=== PATIENT | female | born 1950 | race Caucasian/White ===

== ENCOUNTER 2023-07-21 02:06 | Observation (INO) ==
--- OUTSIDE RECORDS SUMMARY | 2023-07-21 02:16 | External Medical Summary | Summary of Care ---
Author Name Unknown Organization [facility] Address [address] [place] [address] Phone [phone] Care Team Providers Care Welt Maker Name Role Phone Charlene York Primary Care Provider Reason for Visit * Reason Comments Medication Administration Udencya * Episode Based Medications (Routine) - Authorized Specialty Diagnoses / Procedures Referred By Contalex t Referred To Contact Diagnoses Malignant neoplasm of upper-outer quadrant of right breast in female, estrogen receptor positive (HCC) Encounter for antineoplastic chemotherapy Procedures AZ CARBOPLATIN INJECTION AZ FOSAPREPITANT INJECTION AZ INJECTION, PERTUZUMAB, 1 MG AZ INJ ONTRUZANT 10 MG AZ INJECTION, UDENYCA 0.5 MG AZ DOCETAXEL INJECTION Faustino Sharif MD [address] [place] [address] Anc Hem/Onc [address] [address] Referral ID Status Reason Start Date Expiration Date V isits Requested Visits Authorized [id number] Authorized 06/11/2023 02/22/2099 [id number] Encounter Details Date Type Department Care Team (Latest Contact Info) Description 07/14/2023 3:00 PM EDT Immunization/ Injection Hematology/Oncology Treatment, [address] [address] Nurse, Med [address] [place] [address] Malignant neoplasm of upper-outer quadrant of right breast in female, estrogen receptor positive (HCC)*; Encounter for antineoplastic chemotherapy Allergies No known active allergiesdocumented as of this encounter (statuses as of 07/14/2023) Medications Medication Sig Dispensed Refills Start Date End Date Status FOLIC ACID 1 MG OR TABS 1 TABLET DAILY 0 0 04/15/2004 Active MOBIC 7.5 MG PO TABS One pill by mouth once a day for pain as needed 10/05/2007 Active Methotrexate 2.5 MG Oral Tablet Take by mouth once a week. 6 tablets once a week Active Calcium 600-10 MG-MCG Oral Tablet Chewable Take by mouth 2 times a day. Active Orencia 250 MG Intravenous Solution Reconstituted (Abatacept) Administer intravenously. Active dexAMETHasone 4 MG Oral TabletIndications:Mal ignant neoplasm of upper-outer quadrant of right breast in female, estrogen receptor positive (HCC) Take 2 tablets twice a day, starting on the previous day of the treatment for total 3 days and repeat with each chemo cycle 72 Tablet 06/11/2023 Active Ondansetron HCl 8 MG Oral TabletIndications:Mal ignant neoplasm of upper-outer quadrant of right breast in female, estrogen receptor positive (HCC) Take 1 Tablet by mouth every 8 hours as needed for Nausea. 30 Tablet 3 06/11/2023 Active Prochlorperazine Maleate 10 MG Oral Tablet (Compazine)Indication s:Malignant neoplasm of upper-outer quadrant of right breast in female, estrogen receptor positive (HCC) Take 1 Tablet by mouth every 6 hours as needed for Nausea. 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 05/09/2004 documented as of this encounter (statuses as of 07/14/2023) Resolved Problems Problem Noted Date Diagnosed Date Resolved Date Impacted cerumen 03/11/2023 Otitis media 03/11/2023 documented as of this encounter (statuses as of 07/14/2023) Immunizations Name Administration Dates Next Due SARS-COV-2 (COVID-19) Vaccine Unspecified 2022 Seasonal Influenza Virus Vac cine, Unspecified Formulation 12/15/2013,03/23/2013,01/20/2006 Seasonal Influenza, Split, I IV3, With Preserve, Inj 01/20/2006 TDAP (age 10 and older)(Boostrix) 03/11/2023 TDAP (age 11 and older)(Adacel) 06/30/2012 documented as of this encounter Social History Tobacco Use Types Packs/Day Years Used Date Smoking Tobacco: Never Smokeless Tobacco: Never Alcohol Use Standard Drinks/Week Comments No 0 (1 standard drink = 0.6 oz pur e alcohol) Sex and Gender Information Value Date Recorded Sex Assigned at Not on file Gender Identity Not on file Sexual Orientation Not on file Job Start Date Occupation Industry Not on file Not on file Not on file documented as of this encounter Nursing Notes * Bridgette Foreman LPN - 07/14/2023 3:14 PM EDT Pt arrived for Udencya injection. Administered in HUY. Pt tolerated well. No complaints at this time. documented in this encounter Plan of Treatment Upcoming Encounters Date Type Department Care Team (Late st Contact Info) Description 08/03/2023 8:00 AM EDT Office Visit Hematology/Oncology [facility] Aida [address] [place] [address] Tatiana Grullon CRNP [address] [facility] [place] [address] 08/03/2023 8:30 AM EDT Hem/Onc Treatment [facility]cology [facility], [place] [facility] [address] Aida, Chair 4 Hem Onc [address] [place] [address] Health Maintenance Due Date Last Done Comments Pneumococcal Vaccine: 65+ Years (1 of 2 - PCV) 06/16/1956 Depression Screening 1963 Hepatitis C Screening 06/16/1969 Zoster Vaccines (1 of 2) 06/16/1970 Cologuard 06/16/1996 Colonoscopy 06/16/1996 Colorectal Cancer Screening 06/16/1996 Fecal Occult Blood Test 06/16/1996 Sigmoidoscopy 06/16/1996 COVID-19 Vaccine ( - season) 2023 02/03/2023, 06/04/2020, 05/03/2020 Influenza Vaccine (FLU shot) (Season Ended) 2023 12/15/2013, 03/23/2013, 01/20/2006, Additional history exists Mammogram 04/15/2024 04/15/2023 DXA Scan 07/26/2027 07/25/2020 Lipid Panel 03/11/2028 03/11/2023 DTaP,Tdap,and Td Vaccines (3 - Td or Tdap) 03/11/2033 03/11/2023, 06/30/2012 GARDASIL-HPV IMMUNIZATION SERIES Aged Out No longer eligible based on patient's age to complete this topic Hepatitis B Aged Out No longer eligi ble based on patient's age to complete this topic MENINGOCOCCAL (MENACTRA/MENVEO) Aged Out No longer eligible based on patient's age to complete this topic documented as of this encounter Medical Devices Implanted Type Area Rail Project Engineer Device Identifier Shelf Expiration Date Model / Serial / Lot Power Port 8fr Sngl Lumen Plas - [id number] Implanted:Qty : 1 on 07/08/2023 by Naun Ratliff MD at OR [facility] Right: Chest CR BARD : PERIPHERAL VASCULAR [id number] 10/23/2024 [id number] / / [id number] documented as of this encounter Visit Diagnoses Diagnosis Malignant neoplasm of upper-outer quadrant of right breast in female, estrogen receptor positive (HCC)- Primary Encounter for antineoplastic chemotherapy documented in this encounter Administered Medications Inactive Administered Medications - up to 3 most recent administrations Medication Order MAR Action Action Date Dose Rate Site Pegfilgrastim-cbqv (Udenyca) inj 6 mg 6 mg, Subcutaneous, ONCE, On Tu07/14/23 at 1530, For 1 dose Given 07/14/2023 3:01 PM EDT 6 mg Arm R ight Upper documented in this encounter Care Teams Welt Maker Relationship Specialty Start Date End Date Charlene York CRNP [address] [place] [address] PCP - General Nurse Practitioner 03/11/23 documented as of this encounter
--- OUTSIDE RECORDS SUMMARY | 2023-07-21 02:16 | External Medical Summary | Summary of Care ---
Author Name Unknown Organization [facility] Address [address] [place] [address] Phone [phone] Care Team Providers Care Teacher Asst Name Role Phone Charlene York Primary Care Provider Reason for Visit * Reason Onset Date Comments Information 07/17/2023 Encounter Details Date Type Department Care Team (Late st Contact Info) Description 07/17/2023 Telephone Hematology/Oncology Treatment, [place] [address] [place] [address] Bimal Sharif MD [address] [place] [address] Information Allergies No known active allergiesdocumented as of this encounter (statuses as of 07/17/2023) Medications Medication Sig Dispensed Refills Start Date [...] as of this encounter (statuses as of 07/17/2023) Active Problems Problem Noted Date Diagnosed Date Dehydration 07/17/2023 Malignant neoplasm of upper- outer quadrant of right breast in female, estrogen receptor positive 06/11/2023 Encounter for antineoplastic chemotherapy 2023 SPINAL STENOSIS-LUMBAR 08/29/2004 ADVANCE DIRECTIVE INFORMATION 07/12/2004 Overview: Pt stated she will bring in a copy of her Living Will Arthritis, 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/09/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 05/09/2004 documented as of this encounter (statuses as of 07/17/2023) Resolved Problems Problem Noted Date Diagnosed Date Resolved Date Impacted cerumen 03/11/2023 Otitis media 03/11/2023 documented as of this encounter (statuses as of 07/17/2023) Immunizations Name Administration Dates Next Due SARS-COV-2 [...] on file documented as of this encounter Miscellaneous Notes * Telephone Encounter - Magaly Medina OSA - 07/17/2023 10:39 AM EDT Added for today at 145 per note * Addendum Note - Bimal Sharfi MD - 07/17/2023 9:37 AM EDTAddended by: BIMAL SHARIF on: 07/17/2023 09:37 AM Modules accepted: Orders * Telephone Encounter - Bimal Sharif MD - 07/17/2023 9:37 AM EDT Ordered IV hydration, Zofran and Decadron as needed for the symptomatic treatment * Telephone Encounter - Pilar Viera RN - 07/17/2023 9:06 AM EDT HEMATOLOGY/ONCOLOGY INITIAL CHEMO FOLLOW-UP Patient received C1D1 TCHP 07/12, udenyca 07/13. Post chemo side effects: Nausea- patient states that nausea started during the night. Tried taking zofran with a glass of water and food, but this made her vomit the zofran up. Advised her to take zofran with just enough water to keep it down, wait 45 min or so before having anything else to eat/ drink. Cramping pain- states that this happens before she has a BM, BM's are soft and small but she thinksthe amount is small because she isnt eating much States that she is fatigued, vague on whether she may have some dizziness Understands post treatment medications: Yes Understands to call office prior to ER visit/or with issues: Yes Aware of next appointment: Yes Additional information: offered for patient to come in today for hydration due to upcoming holiday weekend- she accepted appt. Dr Sharif: Please place order for 1L NSS over 2 hours, can also give 8mg IV zofran and 8mg IV decadron as needed for nausea while here. Thanks! Scheduling: please add patient for 2 hour appt today at 1:45pm "hydration". She is aware. Thanks! documented in this encounter Plan of Treatment Upcoming Encounters Date Type Department Care Team (Late st Contact Info) Description 07/17/2023 1:45 PM EDT Hem/Onc Treatment Hematology/Oncology [address], [address] [phone] Aida, Chair 7 Hem On[address] [place] [address] 08/03/2023 7:00 AM EDT Laboratory Laboratory [facility] [address] [place] [phone] Aida, Lab [address] [place] [address] 08/03/2023 8:00 AM EDT Office Visit Hematology/Oncology [address] [place] [phone] Tatiana Grullon CRNP [address] [place], [place] [address] [address] 08/03/2023 8:30 AM EDT Hem/Onc Treatment Hematology/[address]cology [address] [phone] Aida, Chair 4 Hem Onc [address] [place] [address] Health Maintenance Due Date Last Done Comments Pneumococcal Vaccine: 65+ Years (1 of 2 - PCV) 06/16/1956 Depression Screening 1962 Hepatitis C Screening 06/16/1969 Zoster Vaccines (1 of 2) 06/16/1970 Cologuard 06/16/1996 Colonoscopy 06/16/1996 Colorectal Cancer Screening 06/16/1996 Fecal Occult Blood Test 06/16/1996 Sigmoidoscopy 06/16/1996 COVID-19 Vaccine ( season) 2023 02/03/2023, 06/04/2020, 05/03/2020 Influenza Vaccine [...] this encounter Medical Devices Implanted Type Area Welding Inspector Device Identifier Shelf Expiration Date Model / Serial / Lot Power Port 8fr Sngl Lumen Plas - [id number] Implanted:Qty : 1 on 07/08/2023 by Naun Ratliff MD at OR [facility] Right: Chest CR BARD : PERIPHERAL VASCULAR [id number] 10/23/2024 [id number] / / [id number] documented as of this encounter Visit Diagnoses Diagnosis Malignant neoplasm of upper-outer quadrant of right breast in female, estrogen receptor positive (HCC)- Primary Chemotherapy induced nausea and vomiting Nausea with vomiting Dehydration documented in this encounter Care Teams Teacher Asst Relationship Specialty Start Date End Date Charlene York CRNP [address] [place] [address] PCP - General Nurse Practitioner 03/11/23 documented as of this encounter
--- OUTSIDE RECORDS SUMMARY | 2023-07-21 02:16 | External Medical Summary | Summary of Care ---
Author Name Unknown Organization [facility] Address [address] [place] [address] Phone [phone] Care Team Providers Care Water Main Installer Helper Name Role Phone Charlene York Primary Care Provider Reason for Visit * Reason Onset Date Comments Information 07/17/2023 Encounter Details Date Type Department Care Team (Late st Contact Info) Description 07/17/2023 Telephone Hematology/Oncology Treatment, [place] [address] [place] [address] Bimal Sharif MD [address] [place] [address] Information Allergies No known active allergiesdocumented as [...] as of this encounter Miscellaneous Notes * Addendum Note - Bimal Sharif MD - 07/17/2023 9:37 AM EDTAddended by: [...] Team (Late st Contact Info) Description 08/03/2023 7:00 AM EDT Laboratory Laboratory [facility] [address] [place] [address] Aida, Lab [facility] [address] [facility] [place] [address] 08/03/2023 8:00 AM EDT Office Visit Hematology/Oncology [facility] [place] [address] [facility] [place] [phone] Tatiana Grullon, DIMITRIOS [address] [facility] [place] [address] 08/03/2023 8:30 AM EDT Hem/Onc Treatment Hematology/Oncology Treatment, [place] [address] [place] [address] Aida, Chair 4 Hem Onc [facility] [address] [facility] [place] [address] Health Maintenance Due Date Last Done Comments [...] this encounter Medical Devices Implanted Type Area Adult Education Manager Device Identifier Shelf Expiration Date Model / Serial / Lot Power Port 8fr Sngl Lumen Plas - [id number] Implanted:Qty : 1 on 07/08/2023 by Naun Ratliff MD at [facility] Right: Chest CR BARD : PERIPHERAL VASCULAR [id number] 10/23/2024 [id number] / / [id number] documented as of this encounter Visit Diagnoses Diagnosis Malignant neoplasm of upper-outer quadrant of right breast in female, estrogen receptor positive (HCC)- Primary Chemotherapy induced nausea and vomiting Nausea with vomiting Dehydration documented in this encounter Care Teams Water Main Installer Helper Relationship Specialty Start Date End Date Charlene York CRNP [address] [place] [address] [place] [address] PCP - General Nurse Practitioner 03/11/23 documented as of this encounter
--- OUTSIDE RECORDS SUMMARY | 2023-07-21 02:16 | External Medical Summary | Summary of Care ---
Author Name Unknown Organization [facility] Address [address] [place] [address] Phone [phone] Care Team Providers Care Laundry Equipment Operator Name Role Phone Charlene York Primary Care Provider Reason for Visit * Reason Onset Date Comments Information 07/17/2023 Encounter Details Date Type Department Care Team (Late st Contact Info) Description 07/17/2023 Telephone Hematology/Oncology Treatment, [place] [address] [place] [address] Bimal Sharif MD [address] [place] [address] Information Allergies No known active allergiesdocumented as [...] Description 08/03/2023 7:00 AM EDT Laboratory Laboratory [facility] [address] [place] [address] Aida, Lab [facility] [address] [facility] [place] [address] 08/03/2023 8:00 AM EDT Office Visit Hematology/Oncology [facility] [place] [address] [facility] [place] [phone] Tatiana Grullon, DIMITRIOS [address] [facility] [place] [address] 08/03/2023 8:30 AM EDT Hem/Onc Treatment Hematology/Oncology Treatment, [place] [address] [place] [address] Aida, Chair 4 Hem Onc [facility] [address] [facility] [place] [address] Health Maintenance Due Date Last Done Comments [...] this encounter Medical Devices Implanted Type Area Robotics Mechanic Device Identifier Shelf Expiration Date Model / Serial / Lot Power Port 8fr Sngl Lumen Plas - [id number] Implanted:Qty : 1 on 07/08/2023 by Naun Ratliff MD at [facility] Right: Chest CR BARD : PERIPHERAL VASCULAR [id number] 10/23/2024 [id number] / / [id number] documented as of this encounter Visit Diagnoses Diagnosis Malignant neoplasm of upper-outer quadrant of right breast in female, estrogen receptor positive (HCC)- Primary Chemotherapy induced nausea and vomiting Nausea with vomiting Dehydration documented in this encounter Care Teams Laundry Equipment Operator Relationship Specialty Start Date End Date Charlene York CRNP [address] [place] [address] [place] [address] PCP - General Nurse Practitioner 03/11/23 documented as of this encounter
--- OUTSIDE RECORDS SUMMARY | 2023-07-21 02:16 | External Medical Summary | Summary of Care ---
Author Name Unknown Organization [facility] Address [address] [place] [address] Phone [phone] Care Team Providers Care Estate Conservator Name Role Phone Charlene York Primary Care Provider Reason for Visit * Reason Comments Chemotherapy TCHP D1C1 * Episode Based Medications (Routine) - Authorized Specialty Diagnoses / Procedures Referred By Contac t Referred To Contact Diagnoses Malignant neoplasm of upper-outer quadrant of right breast in female, estrogen receptor positive (HCC) Encounter for antineoplastic chemotherapy Procedures AR CARBOPLATIN INJECTION AR FOSAPREPITANT INJECTION AR INJECTION, PERTUZUMAB, 1 MG AR INJ ONTRUZANT 10 MG AR INJECTION, UDENYCA 0.5 MG AR DOCETAXEL INJECTION Faustino Sharif MD [address] [facility] [place] [address] Anc Hem/Onc [address] [address] Referral ID Status Reason Start Date Expiration Date V isits Requested Visits Authorized [id number] Authorized 06/11/2023 02/22/[phone] Encounter Details Date Type Department Care Team (Latest Contact Info) Description 07/13/2023 9:00 AM EDT Hem/Onc Treatment Hematology/Oncolog y Treatment, [address] [address] Aida, Chair 1 Hem Onc [address] [place] [address] Malignant neoplasm of upper-outer quadrant of right breast in female, estrogen receptor positive (HCC)*; Encounter for antineoplastic chemotherapy Allergies No known active allergiesdocumented as of this encounter (statuses as of 07/13/2023) Medications Medication Sig Dispensed Refills Start Date [...] as of this encounter (statuses as of 07/13/2023) Active Problems Problem Noted Date Diagnosed Date [...] as of this encounter (statuses as of 07/13/2023) Resolved Problems Problem Noted Date Diagnosed Date Resolved Date Impacted cerumen 03/11/2023 Otitis media 03/11/2023 documented as of this encounter (statuses as of 07/13/2023) Immunizations Name Administration Dates Next Due SARS-COV-2 [...] on file documented as of this encounter Last Filed Vital Signs Vital Sign Reading Time Taken Comments Blood Pressure 123/77 07/13/2023 9:18 AM EDT Pulse 70 07/13/2023 9:18 AM EDT Temperature 36.8 C (98.3 F) 07/13/2023 9:18 AM ED T Respiratory Rate 16 07/13/2023 9:18 AM EDT Oxygen Saturation 97% 07/13/2023 9:18 AM EDT Inhaled Oxygen Concentration - - Weight 64.4 kg (142 lb) 07/13/2023 9:18 AM EDT Height - - Body Mass Index 22.92 07/08/2023 8:35 AM EDT documented in this encounter Nursing Notes * Loulou Strange, RN - 07/13/2023 2:55 PM EDT Pt completed treatment without issues. VAD flushed with 10 ml NSS and Heparin 5 ml (100 units/ml). Lopez needle removed intact. Goals: Pt will remain free from injury. Possible barriers to meeting goals: risk of reaction, ambulation with IV pole/possible drowsiness due to benadryl pretreat Stability of the patient: Moderately stable - low risk of patient condition declining or worsening Summary regarding today's goals: Met: Pt remained free from injury during treatment today. Discharged in stable condition. Goals: Pt will demonstrate understanding. Possible barriers to meeting goals: anxiety re: starting new treatment Stability of the patient: Moderately stable - low risk of patient condition declining or worsening Summary regarding today's goals: Met: Reviewed infusion process, treatment medications and use of antiemetics at home. Pt verbalized understanding and asked appropriate questions. * Loulou Strange RN - 07/13/2023 9:26 AM EDT Chair 11 Chemotherapy/Immunotherapy agents: TAXOTERE, CARBOPLATIN, HERCEPTIN, and PERJETA Consent for chemotherapy drug treatment complete, dated, and signed? yes, date - 06/11/23 Treatment lab parameters met? Yes Has treatment weight changed > than 10%? No Treatment preauthorized? Yes VITALS Filed Vitals: 07/13/23 0918 BP: 123/77 Pulse: 70 Resp: 16 Temp: 36.8 C (98.3 F) SpO2: 97% Weight: 64.4 kg (142 lb) Urine protein: N/A Patient education completed for treatment? Yes Blood transfusion consent signed and complete? NA Return appointment scheduled? Yes Patient had provider visit today? No - If no provider visit must complete Pretreatment Assessment PRE-TREATMENT ASSESSMENT: NEURO: denies symptoms CV/RESP: denies symptoms GI/: denies symptoms OTHER: denies any additional symptoms PAIN: 0 Pt has RA and is followed by rheumatology. Pt denies pain today. VAD accessed; NSS infusing. Safety and Risk for Injury Patient will remain free from injury. Ensure appropriate safety devices are available. Provide and maintain safe environment. Functional Status: Functional status at today's visit: Fully active, able to carry on all pre-disease performance without restriction Knowledge Deficit Patient and Caregiver will demonstrate understanding. Assess current knowledge base. Reinforce education. Teach at level of understanding. The drug name, dose, infusion volume, rate and route of administration, expiration date and time, appearance and physical integrity of the drug and rate set on the pump and sequencing of drug administration (as applicable) were verified by me and second sign-in RN. Patient was assessed for symptoms or adverse side effects during treatment. documented in this encounter Plan of Treatment Upcoming Encounters Date Type Department Care Team (Late st Contact Info) Description 07/14/2023 3:00 PM EDT Immunization/Injecti on Hematology/Oncology Treatment, [address] [place] [phone] Nurse, Med [address] [place] [address] [place] [address] 08/03/2023 8:00 AM EDT Office Visit Hematology/Oncology [facility] [address] [facility] [place] [phone] Tatiana Grullon CRNP 400 [facility] [place] [address] 08/03/2023 8:30 AM EDT Hem/Onc Treatment Hematology/Oncology Treatment, [address] [place] [phone] Aida, Chair 4 Hem Onc [address] [place], [place] [address] Health Maintenance Due Date Last Done Comments [...] this encounter Medical Devices Implanted Type Area Bicycle I Assembler Device Identifier Shelf Expiration Date Model / Serial / Lot Power Port 8fr Sngl Lumen Plas - [id number] Implanted:Qty : 1 on 07/08/2023 by Naun Ratliff MD at OR [facility] Right: Chest CR BARD : PERIPHERAL VASCULAR [id number] 10/23/2024 [id number] / / [id number] documented as of this encounter Visit Diagnoses Diagnosis Malignant neoplasm of upper-outer quadrant of right breast in female, estrogen receptor positive (HCC)- Primary Encounter for antineoplastic chemotherapy documented in this encounter Administered Medications Active Administered Medications - up to 3 most recent administrations Medication Order MAR Action Action Date Dose Rate Site diphenhydrAMINE (Benadryl) inj 50 mg 50 mg, IV Push, ONCE PRN Other, Hypersensitivity Reaction, Starting on Thu07/13/23 at 0918, Until Thu07/14/23 at 0917, For 24 hours EPINEPHrine 1 MG/ML inj 0.3 mg 0.3 mg, Intramuscular, ONCE PRN Other, Hypersensitivity Reaction or Anaphylaxis, Starting on Thu07/13/23 at 0918, Until Thu07/14/23 at 0917, For 24 hours hEParin 100 UNIT/ML Lock Flush inj 500 Units 500 Units (5 mL), IV Lock, PRN Other, IV Flush, Starting on Thu07/13/23 at 0918, Until Thu07/14/23 at 0917, For 24 hours, Do not flush if lock, PICC, or central line not in place; IV infusing or unable to flush. Given 07/13/2023 2:23 PM EDT 500 Units Hydrocortisone Sod Suc (PF) (Solu-Cortef) inj 100 mg 100 mg, IV Push, ONCE PRN Other, Hypersensitivity Reaction, Starting on Thu07/13/23 at 0918, Until Thu07/14/23 at 0917, For 24 hours LORAzepam (Ativan) tab 0.5 mg 0.5 mg, Oral, ONCE PRN Anxiety, Nausea, Starting on Thu07/13/23 at 1030, Until Discontinued NSS infusion Intravenous, at 50 mL/hr, PRN, Starting on Thu07/13/23 at 1030, Until Discontinued, Maintenance line Start Infusion 07/13/2023 9:25 AM EDT 50 mL/hr oxygen GAS Inhalation, OXYGEN, First dose on Thu07/13/23 at 1000, Until Discontinued, Device/Managed by: Low Flow Device, Goal SPO2 (%): 91-95, Starting Device: Nasal Cannula, Initial Flow Rate (LPM): 2, Lowest Support: Nasal Cannula: Flow 0-6 LPM. Titrate up/down by 1 LPM., Higher Support: Non-Rebreather (NRB) Mask: Minimum of 10 LPM. Titrate to maintain bag inflation., Titration Interval: Q2 minutes and as needed., Notify Provider: For sudden DECREASE in resting SPO2 to less than 85% and when escalating delivery device., Wean patient off Oxygen when the oxygen saturation is greater than or equal to 93% sodium chloride 0.9 % flush central line 10 mL 10 mL, IV Push, PRN Other, IV Flush, Starting on Thu07/13/23 at 0918, Until Thu07/14/23 at 0917, For 24 hours, Do not flush if lock, PICC, or central line not in place; IV infusing or unable to flush. Given 07/13/2023 2:22 PM EDT 20 mL Inactive Administered Medications - up to 3 most recent administrations Medication Order MAR Action Action Date Dose Rate Site Acetaminophen (Tylenol) tab 650 mg 650 mg, Oral, ONCE, On Thu07/13/23 at 1030, For 1 dose, Maximum of 4 grams (4000 mg) per day. Given 07/13/2023 9:34 AM EDT 650 mg CARBOplatin (Paraplatin) 593 mg in D5W 250 mL infusion 593 mg (rounded from 593.4 mg, Target AUC = 6), IV Piggyback, at 550 mL/hr Administer over 30 Minutes, PROTECT FROM LIGHT (Max Creatinine Clearance at 125 ml/min for calculating AUC dose), ONCE, 1 dose, On Thu07/13/23 at 1400 Start Infusion 07/13/2023 12:46 PM EDT 593 mg 550 mL/hr diphenhydrAMINE (Benadryl) cap 50 mg 50 mg, Oral, ONCE, On Thu07/13/23 at 1030, For 1 dose Given 07/13/2023 9:33 AM EDT 50 mg DOCEtaxel (Taxotere) 120 mg in NSS 250 mL infusion 120 mg (rounded from 129.75 mg = 75 mg/m2 1.73 m2 Treatment Plan BSA from Recorded weight), IV Piggyback, at 281 mL/hr Administer over 60 Minutes, ONCE, 1 dose, On Thu07/13/23 at 1430 Start Infusion 07/13/2023 1:19 PM EDT 120 mg 281 mL/hr Fosaprepitant Dimeglumine (Emend) 150 mg, ondansetron (Zofran) 16 mg, dexamethasone sodium phosphate 12 mg in NSS 250 mL Infusion 150 mg, IV Piggyback, ONCE, 1 dose, On Thu07/13/23 at 1030, Administer over 30 Minutes, Give 30 minutes prior to chemotherapy. Infuse over 30 minutes. Start Infusion 07/13/2023 9:34 AM EDT 150 mg 578.4 mL/hr PERtuzumab (Perjeta) 840 mg in NSS 250 mL infusion 840 mg, IV Piggyback, ONCE, 1 dose, On Thu07/13/23 at 1100, Administer over 60 Minutes Start Infusion 07/13/2023 10:07 AM EDT 840 mg 303 mL/hr Trastuzumab-dttb (Ontruzant) 515.13 mg in NSS 250 mL infusion 515.13 mg (rounded from 515.2 mg = 8 mg/kg 64.4 kg Treatment plan Recorded weight), IV Piggyback, ONCE, 1 dose, On Thu07/13/23 at 1230, Administer over 90 Minutes Start Infusion 07/13/2023 11:13 AM EDT 515.13 mg 183.33 mL/hr documented in this encounter Care Teams Estate Conservator Relationship Specialty Start Date End Date Charlene York CRNP [address] [place] [address] PCP - General Nurse Practitioner 03/11/23 documented as of this encounter
--- OUTSIDE RECORDS SUMMARY | 2023-07-21 02:16 | External Medical Summary | Summary of Care ---
Author Name Unknown Organization [facility] Address [address] [facility] [address] Phone [phone] Care Team Providers Care Silica Spray Mixer Name Role Phone Charlene York Primary Care Provider Reason for Visit * Reason Comments IV Therapy Hydration, jaimee campos ecadron. Encounter Details Date Type Department Care Team (Latest Contact Info) Description 07/17/2023 1:45 PM EDT Hem/Onc Treatment Hematology/Oncology Treatment, [address] [phone] Aida, Chair 7 Hem Onc Scene [address] [place] [address] Dehydration*; Malignant neoplasm of upper-outer quadrant of right breast in female, estrogen receptor positive (HCC) Allergies No known active allergiesdocumented as of [...] Sign Reading Time Taken Comments Blood Pressure 106/62 07/17/2023 1:45 PM EDT Pulse 93 07/17/2023 1:45 PM EDT Temperature 36.6 C (97.8 F) 07/17/2023 1:45 PM ED T Respiratory Rate 18 07/17/2023 1:45 PM EDT Oxygen Saturation 96% 07/17/2023 1:45 PM EDT Inhaled Oxygen Concentration - - Weight - - Height - - Body Mass Index - - documented in this encounter Nursing Notes * Melina Thorpe RN - 07/17/2023 4:18 PM EDT Goals: Patient will remain free from injury. Possible barriers to meeting goals: Fall risk d/t ambulation with IV pole. Stability of the patient: Moderately stable - low risk of patient condition declining or worsening Summary regarding today's goals: Met: Patient remained free of injury. Patient tolerated infusion well. Discharged in stable condition. * Melina Thorpe RN - 07/17/2023 2:58 PM EDT Chair 1. Patient arrived for hydration.(See TE). Patient states that she hasn't felt good since yesterday, has been having severe abdominal cramps, not able to eat or drink, and overall doesn't feel good. VAD accessed. Safety and Risk for Injury Patient will remain free from injury. Ensure appropriate safety devices are available. Provide and maintain safe environment. documented in this encounter Plan of Treatment Upcoming Encounters Date Type Department Care Team (Late st Contact Info) Description 08/03/2023 7:00 AM EDT Laboratory Laboratory [facility] State Ron Parra [address] [place] [phone] Park, Lab Scenery [address] [facility] [place] [address] 08/03/2023 8:00 AM EDT Office Visit Hematology/Oncology [facility] [place] [address] [place] [address] Tatiana Grullon CRNP 400 [facility] [place] [address] 08/03/2023 8:30 AM EDT Hem/Onc Treatment Hematology/Oncology Treatment, [place] [address] [place] [phone] Aida, Chair 4 Hem Onc [facility] 200 [facility] [place] [address] Health Maintenance Due Date Last Done Comments [...] this encounter Medical Devices Implanted Type Area Contract Clerk Device Identifier Shelf Expiration Date Model / Serial / Lot Power Port 8fr Sngl Lumen Plas - [id number] Implanted:Qty : 1 on 07/08/2023 by Naun Ratliff MD at OR [facility] Right: Chest CR BARD : PERIPHERAL VASCULAR [id number] 10/23/2024 [id number] / / [id number] documented as of this encounter Visit Diagnoses Diagnosis Dehydration- Primary Malignant neoplasm of upper-outer quadrant of right breast in female, estrogen receptor positive (HCC) documented in this encounter Administered Medications Active Administered Medications - up to 3 most recent administrations Medication Order MAR Action Action Date Dose Rate Site hEParin 100 UNIT/ML Lock Flush inj 500 Units 500 Units (5 mL), IV Lock, PRN Other, IV Flush, Starting on Thu07/17/23 at 1437, Until 07/18/23 at 1436, For 24 hours, Do not flush if lock, PICC, or central line not in place; IV infusing or unable to flush. Given 07/17/2023 3:58 PM EDT 500 Units sodium chloride 0.9 % flush central line 10 mL 10 mL, IV Push, PRN Other, IV Flush, Starting on Thu07/17/23 at 1437, Until 07/18/23 at 1436, For 24 hours, Do not flush if lock, PICC, or central line not in place; IV infusing or unable to flush. Given 07/17/2023 3:58 PM EDT 10 mL Inactive Administered Medications - up to 3 most recent administrations Medication Order MAR Action Action Date Dose Rate Site dexamethasone sod phosphate PF (Decadron) 10 MG/ML inj 8 mg 8 mg, IV Push, ONCE PRN Nausea, Starting on Thu07/17/23 at 1437, Until Thu07/17/23 at 1449, For 1 dose, PROTECT FROM LIGHT Given 07/17/2023 2:49 PM EDT 8 mg NSS infusion FOR HYDRATION Intravenous, at 500 mL/hr Administer over 2 Hours, ONCE, 1 dose, On Thu07/17/23 at 1545 Start Infusion 07/17/2023 1:58 PM EDT 1,000 mL 500 mL/hr ondansetron (Zofran) inj 8 mg 8 mg, IV Push, ONCE PRN Nausea, Starting on Thu07/17/23 at 1437, Until Thu07/17/23 at 1447, For 1 dose Given 07/17/2023 2:47 PM EDT 8 mg documented in this encounter Care Teams Silica Spray Mixer Relationship Specialty Start Date End Date Charlene York CRNP [address] [place] [address] PCP - General Nurse Practitioner 03/11/23 documented as of this encounter
--- OUTSIDE RECORDS SUMMARY | 2023-07-21 02:17 | External Medical Summary | Summary of Care ---
Author Name Unknown Organization [facility] Address [address] [facility] [place] [address] Phone [phone] Care Team Providers Care Parts Facilitator Name Role Phone Charlene York Primary Care Provider Reason for Visit * Reason Onset Date Comments Follow Up 06/30/2023 Encounter Details Date Type Department Care Team (Late st Contact Info) Description 06/30/2023 Telephone Hematology/Oncology [facility] Aida [place] [address] [place] [address] Faustino Sharif MD [address] [place] [address] Follow Up Allergies No known active allergiesdocumented as of this encounter (statuses as of 07/06/2023) Medications Medication Sig Dispensed Refills Start Date End Date Status FOLIC ACID 1 MG OR TABS 1 TABLET DAILY 0 0 04/15/2004 Active MOBIC 7.5 MG PO TABS One pill by mouth once a day for pain as needed 0 10/05/2007 Active Methotrexate 2.5 MG Oral Tablet Take by mouth once a week. 6 tablets once a week 0 Active Calcium 600-10 MG-MCG Oral Tablet Chewable Take by mouth 2 times a day. 0 Active Orencia 250 MG Intravenous Solution Reconstituted (Abatacept) Administer intravenously. 0 Active dexAMETHasone 4 MG Oral TabletIndications:Mal ignant neoplasm of upper-outer quadrant of right breast in female, estrogen receptor positive (HCC) Take 2 tablets twice a day, starting on the previous day of the treatment for total 3 days and repeat with each chemo cycle 72 Tablet 0 06/11/2023 Active Ondansetron HCl 8 MG Oral [...] as of this encounter (statuses as of 07/06/2023) Active Problems Problem Noted Date Diagnosed Date [...] as of this encounter (statuses as of 07/06/2023) Resolved Problems Problem Noted Date Diagnosed Date Resolved Date Impacted cerumen 03/11/2023 Otitis media 03/11/2023 documented as of this encounter (statuses as of 07/06/2023) Immunizations Name Administration Dates Next Due SARS-COV-2 [...] encounter Miscellaneous Notes * Telephone Encounter - Pilar Viera RN - 07/06/2023 7:07 AM EDT Patient replied to MyG, meds (methotrexate, orencia) on hold during chemo. Updated med list. * Telephone Encounter - Addi Jean RN - 06/30/2023 9:44 AM EDT Pt to have seen Manufacturing Helper regarding Orencia/Methotrexate during chemotherapy. documented in this encounter Plan of Treatment Upcoming Encounters Date Type Department Care Team (Latest Contact Info) Description 07/08/2023 9:51 AM EDT Hospital Encounter OR [facility], Operating Room, [facility] - 4th Floor [address] [place] [address] Naun Ratliff MD [address] [place] [address] 07/08/2023 9:51 AM EDT - 07/08/2023 10:48 AM EDT Surgery OR [facility], Operating Room, [facility] - 4th Floor [address] [place] [address] Naun Ratliff MD [address] [place] [address] [place] [address] INSERT TUNNELED CENTRAL VENOUS ACCESS WITH SUBQ PORT 07/13/2023 7:30 AM EDT Laboratory Laboratory Nilda Parra [place] [address] [place] [address] Garth Parra [facility] [address] [facility] [place] [address] 07/13/2023 9:00 AM EDT Hem/Onc Treatment Hematology/Oncolog y Treatment, [place] 200 [facility] [place] [phone] Aida, Chair 1 Hem Onc Scenery [address] [place] [address] Scheduled Procedures Name Priority Associated Diagnoses Date/Ti me INSERT TUNNELED CENTRAL VENOUS ACCESS WITH SUBQ PORT Malignant neoplasm of upper-outer quadrant of right breast in female, estrogen receptor positive (HCC) 07/08/2023 9:51 AM EDT Health Maintenance Due Date Last Done Comments [...] documented as of this encounter Medical Devices Not on filedocumented as of this encounter Care Teams Parts Facilitator Relationship Specialty Start Date End Date Charlene York CRNP [address] [place] [address] PCP - General Nurse Practitioner 03/11/23 documented as of this encounter
--- OUTSIDE RECORDS SUMMARY | 2023-07-21 02:17 | External Medical Summary | Summary of Care ---
Author Name Unknown Organization [facility] Address [address] [facility] [place] [address] Phone [phone] Care Team Providers Care Trucker Hand Name Role Phone Charlene York Primary Care Provider Reason for Visit * Reason Onset Date Comments Precert Future 06/11/2023 [facility] Encounter Details Date Type Department Care Team (Late st Contact Info) Description 06/11/2023 Telephone Hematology/Oncology Nilda Parra [place] [address] [place] [address] Faustino Sharif MD [address] [place] [address] Precert Future ([facility]) Allergies No known active allergiesdocumented as of this encounter (statuses as of 06/23/2023) Medications Medication Sig Dispensed Refills Start Date [...] as of this encounter (statuses as of 06/23/2023) Active Problems Problem Noted Date Diagnosed Date [...] as of this encounter (statuses as of 06/23/2023) Resolved Problems Problem Noted Date Diagnosed Date Resolved Date Impacted cerumen 03/11/2023 Otitis media 03/11/2023 documented as of this encounter (statuses as of 06/23/2023) Immunizations Name Administration Dates Next Due SARS-COV-2 [...] Telephone Encounter - Pilar Viera RN - 06/23/2023 7:58 AM EDT Clarified with Dr Sharif- would like to wait until after biopsy to start treatment. Will need to follow up with patient. * Telephone Encounter - Addi Jean RN - 06/22/2023 2:24 PM EDT Bx of LB on 07/02 @ [facility]. * Telephone Encounter - Pilar Viera RN - 06/22/2023 12:56 PM EDT Echo 06/16/23. Port 07/08/23. * Telephone Encounter - Magaly Medina OSA - 06/15/2023 12:28 PM EDT Called pt back and scheduled date and time of pts pref * Telephone Encounter - Magaly Medina OSA - 06/15/2023 10:12 AM EDT Called left message to schedule chemo teaching * Telephone Encounter - Pilar Viera RN - 06/15/2023 8:53 AM EDT Referral entered. * Telephone Encounter - Magaly Medina OSA - 06/12/2023 9:57 AM EDT Called the number I was given to call and it went straight to VM Will try again Thursday per the pt might be away for most of the day * Telephone Encounter - Magaly Medina OSA - 06/11/2023 1:20 PM EDT Pt is not home and will try to call tomorrow mid morning Asked for me to call [phone] * Telephone Encounter - Addi Jean RN - 06/11/2023 1:09 PM EDT Scheduling- patient needs scheduled for chemo teaching, please call her to schedule a nurse visit for this. Thank you. * Telephone Encounter - Addi Jean RN - 06/11/2023 10:16 AM EDT Orders received, beacon plan built and sent for signature. -Chemo Consent: 06/11/23 -Chemo Education: Needs Scheduled -Port Placement: TBD - need prior to starting -Standing Lab orders placed: CBCD, CMP -Medications Pended: Zofran, Compazine, Decadron -Hep B Labs: Ordered - pt will need baseline ECHO prior to starting treatment. documented in this encounter Plan of Treatment Upcoming Encounters Date Type Department Care Team (Latest Contact Info) Description 06/24/2023 11:00 AM EDT Office Visit Plastic Surgery, [facility] [address] [place] [address] Wil Hameed MD [address] [facility] [place] [address] 07/03/2023 1:00 PM EDT Imaging Radiology [address] 132 [facility] [place] [address] 07/03/2023 3:00 PM EDT Imaging Radiology [address] 132 [facility] [place] [address] 07/08/2023 9:51 AM EDT Hospital Encounter OR [facility], Operating Room, [facility] - [address] [place] [address] [address] [place] [address] Naun Ratliff MD [address] [place] [address] 07/08/2023 9:51 AM EDT - 07/08/2023 10:48 AM EDT Surgery OR [facility], Operating Room, [facility] - [address] [place] [address] [address] [place] [address] Naun Ratliff MD [address] [place] [address] INSERT TUNNELED CENTRAL VENOUS ACCESS WITH SUBQ PORT Scheduled Procedures Name Priority Associated Diagnoses Date/Ti [...] Not on filedocumented as of this encounter Results * HEPATITIS B SURFACE ANTIGEN (06/22/2023 11:16 AM EDT) Hepatitis B Surface Antigen Negative Negative 06/22/2023 10:56 PM EDT [facility] Blood Venous blood specimen / Unknown Venipuncture / Unknown 06/22/2023 11:16 AM EDT 06/22/2023 11:17 AM EDT Faustino Sharif MD LAB BLOOD ORDERABLES [facility] [address] [place] [address] * HEPATITIS B SURFACE ANTIBODY (06/22/2023 11:16 AM EDT) Hepatitis B Surface Antibody, Quantitative <3.5 mIU/mL 06/22/2023 10:56 PM EDT [facility] Hepatitis B Surface Antibody, Qualitative Negative 06/22/2023 10:56 PM EDT [facility] Hepatitis B Surface Antibody, Interpretation NOT immune to Hepatitis B Virus 06/22/2023 10:56 PM EDT [facility] Comment: POSITIVE: >=11.5 mIU/mL INDETERMINATE: 8.5-<11.5 mIU/mL NEGATIVE: <8.5 mIU/mL Blood Venous blood specimen / Unknown Venipuncture / Unknown 06/22/2023 11:16 AM EDT 06/22/2023 11:17 AM EDT Faustino hSarif MD LAB BLOOD ORDERABLES [facility] [address] [place] [address] * HEPATITIS B CORE ANTIBODIES IGG AND IGM (06/22/2023 11:16 AM EDT) Hepatitis B Core Antibodies IgG and IgM Negative Negative 06/22/2023 10:56 PM EDT [facility] Blood Venous blood specimen / Unknown Venipuncture / Unknown 06/22/2023 11:16 AM EDT 06/22/2023 11:17 AM EDT Faustino Sharif MD LAB BLOOD ORDERABLES Performing Organization Address City/[facility] Co de Phone Number [facility] [address] [place] [address] documented in this encounter Visit Diagnoses Diagnosis Malignant neoplasm of upper-outer quadrant of right breast in female, estrogen receptor positive (HCC)- Primary Encounter for screening for other viral diseases Malignant neoplasm of upper-outer quadrant of right breast in female, estrogen receptor positive (HCC) documented in this encounter Care Teams Trucker Hand Relationship Specialty Start Date End Date Charlene York CRNP [address] [place] [address] PCP - General Nurse Practitioner 03/11/23 documented as of this encounter
--- OUTSIDE RECORDS SUMMARY | 2023-07-21 02:17 | External Medical Summary | Summary of Care ---
Author Name Unknown Organization [facility] Address [address] [facility] [place] [address] Phone [phone] Care Team Providers Care Hardware Press Operator Name Role Phone Charlene York Primary Care Provider Reason for Visit * Reason Onset Date Comments Precert Future 06/11/2023 [facility] Encounter Details Date Type Department Care Team (Late st Contact Info) Description 06/11/2023 Telephone Hematology/Oncology Nilda Parra [place] [address] [place] [address] Faustino Sharif MD [address] [place] [address] Precert Future ([facility]) Allergies No known active allergiesdocumented as of this encounter (statuses as of 06/22/2023) Medications Medication Sig Dispensed Refills Start Date [...] as of this encounter (statuses as of 06/22/2023) Active Problems Problem Noted Date Diagnosed Date [...] as of this encounter (statuses as of 06/22/2023) Resolved Problems Problem Noted Date Diagnosed Date Resolved Date Impacted cerumen 03/11/2023 Otitis media 03/11/2023 documented as of this encounter (statuses as of 06/22/2023) Immunizations Name Administration Dates Next Due SARS-COV-2 [...] mid morning Asked for me to call [phone] * Telephone Encounter - Addi Jean RN [...] 11:00 AM EDT Office Visit Plastic Surgery, [facility] [address] [place] [address] Wil Hameed MD [address] [place] [address] 07/03/2023 1:00 PM EDT Imaging Radiology [address] 132 [facility] [place] [address] 07/03/2023 3:00 PM EDT Imaging Radiology [address] [place] [address] 07/08/2023 9:51 AM EDT Hospital Encounter OR [facility], Operating Room, [facility] - 4th Floor [address] [place] [address] Naun [facility] [address] 07/08/2023 9:51 AM EDT - 07/08/2023 10:48 AM EDT Surgery OR [facility], Operating Room, [facility] - 4th Floor [address] [place] [id number] Naun Ratliff MD [address] [place] [address] INSERT TUNNELED CENTRAL VENOUS ACCESS WITH SUBQ PORT Pending Results Name Type Priority Associated Diagnoses Date /Time HEPATITIS B CORE ANTIBODIES IGG AND IGM Lab Routine Malignant neoplasm of upper-outer quadrant of right breast in female, estrogen receptor positive (HCC) Encounter for screening for other viral diseases 06/22/2023 11:16 AM EDT HEPATITIS B SURFACE ANTIBODY Lab Routine Malignant neoplasm of upper-outer quadrant of right breast in female, estrogen receptor positive (HCC) 06/22/2023 11:16 AM EDT HEPATITIS B SURFACE ANTIGEN Lab Routine Malignant neoplasm of upper-outer quadrant of right breast in female, estrogen receptor positive (HCC) Encounter for screening for other viral diseases 06/22/2023 11:16 AM EDT Scheduled Orders Name Type Priority Associated Diagnoses Orde r Schedule HEPATITIS B CORE ANTIBODIES IGG AND IGM Lab Routine Malignant neoplasm of upper-outer quadrant of right breast in female, estrogen receptor positive (HCC) Encounter for screening for other viral diseases Expected: 06/11/2023, Expires: 06/10/2024 HEPATITIS B SURFACE ANTIBODY Lab Routine Malignant neoplasm of upper-outer quadrant of right breast in female, estrogen receptor positive (HCC) Expected: 06/11/2023, Expires: 06/10/2024 HEPATITIS B SURFACE ANTIGEN Lab Routine Malignant neoplasm of upper-outer quadrant of right breast in female, estrogen receptor positive (HCC) Encounter for screening for other viral diseases Expected: 06/11/2023, Expires: 06/10/2024 Scheduled Procedures Name Priority Associated Diagnoses Date/Ti [...] Not on filedocumented as of this encounter Visit Diagnoses Diagnosis Malignant neoplasm of upper-outer quadrant of right breast in female, estrogen receptor positive (HCC)- Primary Encounter for screening for other viral diseases Malignant neoplasm of upper-outer quadrant of right breast in female, estrogen receptor positive (HCC) documented in this encounter Care Teams Hardware Press Operator Relationship Specialty Start Date End Date Charlene York CRNP [address] [place] [address] PCP - General Nurse Practitioner 03/11/23 documented as of this encounter
--- OUTSIDE RECORDS SUMMARY | 2023-07-21 02:17 | External Medical Summary ---
Author Name Unknown Address Unknown Organization K09:[facility] [place] [address] Laboratory Report Ordering Provider Test Date Status SALO WALILS 07/13/2023 07:37:12 Final Observation Date Value Abnormality Reference (Units ) Status SYNC LEUKOCYTES IN BLOOD BY AUTOMATED COUNT 07/13/2023 07:37:12 11.41 Above high normal 4.00-10.80 (K/uL) Final Segs 07/13/2023 07:37:12 91.8 Above high normal 40.0-75.0 (%) Final Lymphs % 07/13/2023 07:37:12 6.7 Below low normal 18.0-42.0 (%) Final Monos 07/13/2023 07:37:12 1.4 1.0-11.0 (%) Final Eosinophils 07/13/2023 07:37:12 0.0 0.0-6.0 (%) Final Basos 07/13/2023 07:37:12 0.1 0.0-2.0 (%) Final Absolute Segs 07/13/2023 07:37:12 10.48 Above high normal 1.80-7.70 (K/uL) Final Lymphs, absolute 07/13/2023 07:37:12 0.76 Below low normal 1.00-4.80 (K/ul) Final Monos, Abs 07/13/2023 07:37:12 0.16 0.00-1.10 (K/uL) Final Eos, Abs 07/13/2023 07:37:12 0.00 0.00-0.70 (K/uL) Final Basos, Abs 07/13/2023 07:37:12 0.01 0.00-0.20 (K/uL) Final Performing Location [facility] [place] [address]
--- OUTSIDE RECORDS SUMMARY | 2023-07-21 02:17 | External Medical Summary | Summary of Care ---
Author Name Unknown Organization [facility] Address [address] [facility] [place] [address] Phone [phone] Care Team Providers Care Restaurant Delivery Driver Name Role Phone Charlene York Primary Care Provider Reason for Visit * Reason Onset Date Comments Precert Future 06/11/2023 [facility] Encounter Details Date Type Department Care Team (Late st Contact Info) Description 06/11/2023 Telephone Hematology/Oncology Nilda Parra [place] [address] [place] [address] Faustino Sharif MD [address] [place] [address] Precert Future ([facility]) Allergies No known active allergiesdocumented as [...] Telephone Encounter - Magaly Medina OSA - 06/23/2023 10:45 AM EDT Pt on the schedule for 07/12 with labs same day per pt request * Telephone Encounter - Pilar Viera RN - 06/23/2023 10:38 AM EDT Called patient- reviewed that we will leave port as scheduled 07/07, Dr Sharif wants to wait until after biopsy to start treatment. Scheduling: please call patient to schedule for week of 07/13/23 - labs "CBCd, CMP"- ok to do day prior if patient prefers - 6 hour appt "C1D1 TCHP/ udenyca day 2" ([place]) Thanks! * Telephone Encounter - Pilar Viera RN [...] mid morning Asked for me to call [phone] * Telephone Encounter - Addi Jean RN [...] 11:00 AM EDT Office Visit Plastic Surgery, [address] [address] Wil Hameed MD [address] [place] [address] 07/03/2023 1:00 PM EDT Imaging Radiology [address] [place] [address] 07/03/2023 3:00 PM EDT Imaging Radiology [address] [address] 07/08/2023 9:51 AM EDT Hospital Encounter OR [facility], Operating Room, [facility] - [address] [place] [address] [address] [place] [address] Naun Ratliff MD [address] [place], [place] [address] [address] 07/08/2023 9:51 AM EDT - 07/08/2023 10:48 AM EDT Surgery OR [facility], Operating Room, [facility] Floor [address] [place] [address] Naun Ratliff MD [address] [place], [place] [address] [address] INSERT TUNNELED CENTRAL VENOUS ACCESS WITH SUBQ PORT 07/13/2023 7:30 AM EDT Laboratory Laboratory Scenery Aida [place] [address] [place] [address] Aida, Lab Scenery [address] [facility] [place] [address] 07/13/2023 9:00 AM EDT Hem/Onc Treatment Hematology/Oncolog y Treatment, [place] [address] [place] [address] Aida, Chair 1 Hem Onc [address] [place] [address] Scheduled Procedures Name Priority Associated Diagnoses Date/Ti [...] Negative Negative 06/22/2023 10:56 PM EDT LABORATORY [facility] Blood Venous blood specimen / Unknown Venipuncture / Unknown 06/22/2023 11:16 AM EDT 06/22/2023 11:17 AM EDT Faustino Sharif MD LAB BLOOD ORDERABLES Performing Organization Address [facility] Co de Phone Number LABORATORY [facility] [address] [place] [address] * HEPATITIS B SURFACE ANTIBODY (06/22/2023 11:16 AM EDT) Pathologist [facility] Hepatitis B Surface Antibody, Quantitative <3.5 mIU/mL 06/22/2023 10:56 PM EDT LABORATORY [facility] Hepatitis B Surface Antibody, Qualitative Negative 06/22/2023 10:56 PM EDT LABORATORY [facility] Hepatitis B Surface Antibody, Interpretation NOT immune to Hepatitis B Virus 06/22/2023 10:56 PM EDT LABORATORY [facility] Comment: POSITIVE: >=11.5 mIU/mL INDETERMINATE: 8.5-<11.5 mIU/mL NEGATIVE: <8.5 mIU/mL Blood Venous blood specimen / Unknown Venipuncture / Unknown 06/22/2023 11:16 AM EDT 06/22/2023 11:17 AM EDT Faustino Sharif MD LAB BLOOD ORDERABLES Performing Organization Address [facility] Co de Phone Number LABORATORY [place] [address] [place] [address] * HEPATITIS B CORE ANTIBODIES IGG AND IGM (06/22/2023 11:16 AM EDT) Pathologist [facility] Hepatitis B Core Antibodies IgG and IgM Negative Negative 06/22/2023 10:56 PM EDT LAB[facility]ATORY [facility] Blood Venous blood specimen / Unknown Venipuncture / Unknown 06/22/2023 11:16 AM EDT 06/22/2023 11:17 AM EDT Faustino Sharif MD LAB BLOOD ORDERABLES LAB[facility]ATORY [facility] [address] [place], [place] [id number] documented in this encounter Visit Diagnoses Diagnosis Malignant neoplasm of upper-outer quadrant of right breast in female, estrogen receptor positive (HCC)- Primary Encounter for screening for other viral diseases Malignant neoplasm of upper-outer quadrant of right breast in female, estrogen receptor positive (HCC) documented in this encounter Care Teams Restaurant Delivery Driver Relationship Specialty Start Date End Date Charlene York CRNP [address] [facility] [place] [address] PCP - General Nurse Practitioner 03/11/23 documented as of this encounter
--- OUTSIDE RECORDS SUMMARY | 2023-07-21 02:17 | External Medical Summary | Summary of Care ---
Author Name Unknown Organization [facility] Address [address] [place] [address] Phone [phone] Care Team Providers Care Nuclear Medical Technologist Name Role Phone Charlene York Primary Care Provider Reason for Visit * Reason Onset Date Comments Information 07/09/2023 Decadron reminde r Encounter Details Date Type Department Care Team (Late st Contact Info) Description 07/09/2023 Telephone Hematology/Oncology Treatment, [place] [address] [place] [address] Faustino Sharif MD [address] [place] [address] Information (Decadron reminder) Allergies No known active allergiesdocumented as of this encounter (statuses as of 07/09/2023) Medications Medication Sig Dispensed Refills Start Date [...] as of this encounter (statuses as of 07/09/2023) Active Problems Problem Noted Date Diagnosed Date [...] as of this encounter (statuses as of 07/09/2023) Resolved Problems Problem Noted Date Diagnosed Date Resolved Date Impacted cerumen 03/11/2023 Otitis media 03/11/2023 documented as of this encounter (statuses as of 07/09/2023) Immunizations Name Administration Dates Next Due SARS-COV-2 [...] Telephone Encounter - Pilar Viera RN - 07/09/2023 10:07 AM EDT Patient is scheduled for C1D1 TCHP 07/13/23. Called patient to review decadron instructions. Since patient is starting treatment Thursday07/13/23,she will need to take 2 tablets of decadron twice a day on Thursday, Thursday, and Thursday. Left message for patient with above information, advised in message I would also send MyG. Disp Refills Start End dexAMETHasone 4 MG Oral Tablet 72 Tablet 0 06/11/2023 -- Sig: Take 2 tablets twice a day, starting on the previous day of the treatment for total 3 days andrepeat with each chemo cycle Patient did not have biopsy 07/03/23- reviewed with eloisa Zuniga to proceed with chemotherapy as scheduled. documented in this encounter Plan of Treatment Upcoming Encounters Date Type Department Care Team (Late st Contact Info) Description 07/13/2023 7:30 AM EDT Laboratory Laboratory [facility] [place] [address] [facility] [place] [id number] [facility] Lab [address] [facility] [place] [address] 07/13/2023 9:00 AM EDT Hem/Onc Treatment Hematology/Oncology Treatment, [place] [address] [facility] [address] Aida, Chair [address] [facility] [address] [facility] [place] [address] Health Maintenance Due Date Last Done Comments [...] this encounter Medical Devices Implanted Type Area Lead Rider Device Identifier Shelf Expiration Date Model / Serial / Lot Power Port 8fr Sngl Lumen Plas - [id number] Implanted:Qty : 1 on 07/08/2023 by Naun Ratliff MD at OR [facility] Right: Chest CR BARD : PERIPHERAL VASCULAR [id number] 10/23/2024 [id number] / / [id number] documented as of this encounter Care Teams Nuclear Medical Technologist Relationship Specialty Start Date End Date Charlene York CRNP [address] [place] [address] PCP - General Nurse Practitioner 03/11/23 documented as of this encounter
--- OUTSIDE RECORDS SUMMARY | 2023-07-21 02:17 | External Medical Summary | Summary of Care ---
Author Name Unknown Organization [facility] Address [address] [place] [place] [address] Phone [phone] Care Team Providers Care Machine Molder Name Role Phone Charlene York Primary Care Provider Reason for Visit * Reason Comments Outpatient Testing Encounter Details Date Type Department Care Team (Late st Contact Info) Description 07/13/2023 7:30 AM EDT Laboratory Laboratory [facility] [address] [place] [address] [facility] Scenery [address] [place] [address] Malignant neoplasm of upper-outer quadrant of right [...] on file documented as of this encounter Plan of Treatment Upcoming Encounters Date Type Department Care Team (Late st Contact Info) Description 07/13/2023 9:00 AM EDT Hem/Onc Treatment Hematology/Oncology Treatment, [place] [address] [place] [address] Aida, Chair 1 Hem Onc Scen[address] [facility] [place] [address] Arrived Pending Results Name Type Priority Associated Diagnoses Date /Time CBC WITH WBC DIFFERENTIAL Lab STAT Malignant neoplasm of upper-outer quadrant of right breast in female, estrogen receptor positive (HCC) 07/13/2023 7:37 AM EDT COMPREHENSIVE METABOLIC PANEL Lab STAT Malignant neoplasm of upper-outer quadrant of right breast in female, estrogen receptor positive (HCC) 07/13/2023 7:37 AM EDT CBC Lab STAT Malignant neoplasm of upper-outer quadrant of right breast in female, estrogen receptor positive (HCC) 07/13/2023 7:37 AM EDT DIFFERENTIAL, AUTOMATED Lab STAT Malignant neoplasm of upper-outer quadrant of right breast in female, estrogen receptor positive (HCC) 07/13/2023 7:37 AM EDT Health Maintenance Due Date Last [...] this encounter Medical Devices Implanted Type Area Roof Fixer Device Identifier Shelf Expiration Date Model / Serial / Lot Power Port 8fr Sngl Lumen Plas - [id number] Implanted:Qty : 1 on 07/08/2023 by Naun Ratliff MD at [facility] Right: Chest CR BARD : PERIPHERAL VASCULAR [id number] 10/23/2024 [id number] / / [id number] documented as of this encounter Visit Diagnoses Diagnosis Malignant neoplasm of upper-outer quadrant of right breast in female, estrogen receptor positive (HCC) documented in this encounter Care Teams Machine Molder Relationship Specialty Start Date End Date Charlene York CRNP 132 [facility] [place] [address] PCP - General Nurse Practitioner 03/11/23 documented as of this encounter
--- OUTSIDE RECORDS SUMMARY | 2023-07-21 02:17 | External Medical Summary | Summary of Care ---
Author Name Unknown Organization [facility] Address [address] [facility] [place] [address] Phone [phone] Care Team Providers Care Hosiery Operator Name Role Phone Charlene York Primary Care Provider Encounter Details Date Type Department Care Team (Late st Contact Info) Description 06/30/2023 Orders Only Hematology/Oncology [place] Ron Roach [address] [facility] [place] [address] Faustino Sharif MD [address] [facility] [place] [address] Malignant neoplasm of upper-outer quadrant of right breast in female, estrogen receptor positive (HCC)* Allergies No known active allergiesdocumented as of this encounter (statuses as of 06/30/2023) Medications Medication Sig Dispensed Refills Start Date [...] as of this encounter (statuses as of 06/30/2023) Active Problems Problem Noted Date Diagnosed Date [...] as of this encounter (statuses as of 06/30/2023) Resolved Problems Problem Noted Date Diagnosed Date Resolved Date Impacted cerumen 03/11/2023 Otitis media 03/11/2023 documented as of this encounter (statuses as of 06/30/2023) Immunizations Name Administration Dates Next Due SARS-COV-2 [...] on file documented as of this encounter Progress Notes * Faustino Sharif MD - 06/30/2023 6:41 AM EDT - Continue ontruzant/ perjeta every 3 weeks after TCHP to complete 17 total cycles of treatment continue ontruzant/ perjeta every 3 weeks after TCHP to complete 17 total cycles of treatment documented in this encounter Plan of Treatment Upcoming Encounters Date Type Department Care Team (Latest Contact Info) Description 07/03/2023 1:00 PM EDT Imaging Radiology [address] [facility] [place] [address] 07/03/2023 3:00 PM EDT Imaging Radiology [address], [address] [place] [address] 07/08/2023 9:51 AM EDT Hospital Encounter [facility], Operating Room, [facility] - [address] [place] [address] [address] [place] [address] Naun Ratliff MD [address] [place] [address] 07/08/2023 9:51 AM EDT - 07/08/2023 10:48 AM EDT Surgery [facility], Operating Room, [facility] - [address] [place] [address] [address] [place] [address] Naun Ratliff MD [address] [place] [address] INSERT TUNNELED CENTRAL VENOUS ACCESS WITH SUBQ PORT 07/13/2023 7:30 AM EDT Laboratory Laboratory [facility] [place] [address] [place], [place] [address] [facility] Scenery [address] [place] [address] 07/13/2023 9:00 AM EDT Hem/Onc Treatment Hematology/Oncolog y Treatment, [place] [address] [place] [address] Aida, Chair 1 Hem Onc Scenery [address] [place] [address] Scheduled Procedures Name Priority Associated Diagnoses Date/Ti [...] in female, estrogen receptor positive (HCC)- Primary Malignant neoplasm of upper-outer quadrant of right breast in female, estrogen receptor positive (HCC) documented in this encounter Care Teams Hosiery Operator Relationship Specialty Start Date End Date Charlene York CRNP [address] [place] [address] PCP - General Nurse Practitioner 03/11/23 documented as of this encounter
--- OUTSIDE RECORDS SUMMARY | 2023-07-21 02:17 | External Medical Summary | Summary of Care ---
Author Name Unknown Organization [facility] Address [address] [facility] [place] [address] Phone [phone] Care Team Providers Care Lead Programmer Analyst Name Role Phone Charlene York Primary Care Provider Reason for Visit * Reason Onset Date Comments Follow Up 06/30/2023 Encounter Details Date Type Department Care Team (Late st Contact Info) Description 06/30/2023 Telephone Hematology/Oncology [facility] [place] [address] [place] [address] Faustino Sharif MD [address] [place] [address] Follow Up Allergies No known active allergiesdocumented [...] encounter Miscellaneous Notes * Telephone Encounter - Addi Jean RN - 06/30/2023 9:44 AM EDT Pt to have seen Program Development Specialist regarding Orencia/Methotrexate during chemotherapy. documented in this encounter Plan of Treatment Upcoming Encounters Date Type Department Care Team (Latest Contact Info) Description 07/03/2023 1:00 PM EDT Imaging Radiology [address] [place] [address] 07/03/2023 3:00 PM EDT Imaging Radiology [address] [place] [address] 07/08/2023 9:51 AM EDT Hospital Encounter OR [facility], Operating Room, [facility] Floor [address] [place] [address] Naun Ratliff MD [address] [place] [address] 07/08/2023 9:51 AM EDT - 07/08/2023 10:48 AM EDT Surgery OR [facility], Operating Room, [facility] Floor [address] [place] [address] Naun Ratliff MD [address] [place] [address] INSERT TUNNELED CENTRAL VENOUS ACCESS WITH SUBQ PORT 07/13/2023 7:30 AM EDT Laboratory Laboratory [facility] [place] [address] [place] [address] [facility] [address] [facility] [place] [address] 07/13/2023 9:00 AM EDT Hem/Onc Treatment Hematology/Oncolog y Treatment, [place] [address] [facility] [place] [id number] Aida, Chair 1 Hem Onc Scenery [address] [place] [address] Scheduled Procedures Name Priority Associated Diagnoses Date/Ti [...] filedocumented as of this encounter Care Teams Lead Programmer Analyst Relationship Specialty Start Date End Date Charlene York CRNP [address] [place] [address] PCP - General Nurse Practitioner 03/11/23 documented as of this encounter
--- OUTSIDE RECORDS SUMMARY | 2023-07-21 02:17 | External Medical Summary ---
Author Name Unknown Address Unknown Organization K09:[facility] [place] [address] Laboratory Report Ordering Provider Test Date Status SALO WALLIS 07/13/2023 07:37:12 Final Observation Date Value Abnormality Reference (Units ) Status Nucleated erythrocytes/100 leukocytes [Ratio] in Blood by Automated count 07/13/2023 07:37:12 Final Performing Location [facility] [place] [address]
--- OUTSIDE RECORDS SUMMARY | 2023-07-21 02:17 | External Medical Summary | Summary of Care ---
Author Name Unknown Organization [facility] Address [address] [place] [address] Phone [phone] Care Team Providers Care Flame Gouger Name Role Phone Charlene York Primary Care Provider Reason for Visit * Reason Comments NEW PATIENT Breast reconstructio n. * Evaluate & Treat - Unlimited Visits (Within 10 days (routine)) - Authorized Specialty Diagnoses / Procedures Referred By Contac t Referred To Contact Plastic Surgery Diagnoses Malignant neoplasm of upper-inner quadrant of right breast in female, estrogen receptor positive (HCC) Sol Sol MD [address] [place] [address] Referral ID Status Reason Start Date Expiration Date Visits Requested Visits Authorized [id number] Authorized Specialty Services Required 06/10/2023 [id number] Encounter Details Date Type Department Care Team (Late st Contact Info) Description 06/24/2023 11:00 AM EDT Office Visit Plastic Surgery, [facility] [address] [place] [address] Wil Hameed MD [address] [place] [address] Malignant neoplasm of upper-outer quadrant of right breast in female, estrogen receptor positive (HCC)* Allergies No known active allergiesdocumented as of this encounter (statuses as of 06/26/2023) Medications Medication Sig Dispensed Refills Start Date [...] as of this encounter (statuses as of 06/26/2023) Active Problems Problem Noted Date Diagnosed Date [...] as of this encounter (statuses as of 06/26/2023) Resolved Problems Problem Noted Date Diagnosed Date Resolved Date Impacted cerumen 03/11/2023 Otitis media 03/11/2023 documented as of this encounter (statuses as of 06/26/2023) Immunizations Name Administration Dates Next Due SARS-COV-2 [...] Sign Reading Time Taken Comments Blood Pressure 127/60 06/24/2023 10:48 AM EDT Pulse 82 06/24/2023 10:48 AM EDT Temperature - - Respiratory Rate - - Oxygen Saturation - - Inhaled Oxygen Concentration - - Weight 64.4 kg (142 lb) 06/24/2023 10:48 AM EDT Height - - Body Mass Index 22.92 05/14/2023 11:46 AM EDT documented in this encounter Progress Notes * Wil Hameed MD - 06/26/2023 7:16 AM EDT New Patient Clinic Note Sue Rivas [id number] 73 year old CC: right breast cancer Referring Provider: Jaylen PLUNKETT Breast Surgeon: Dr. Sol HPI: Mrs. Rivas is a 73 year old year old female who presents to the plastic and reconstructive surgery clinic for evaluation for breast reconstruction after mastectomy. She was diagnosed with Right breast cancer (one larger area and 3 satellite lesions). She had an MRI that showed a concerning areaon the left as well and is going to have an MRI guided biopsy. The plan is for neoadjuvant chemotherapy. The patient is interested in having bilateral mastectomies with reconstruction. Current Bra Size: 36 B Desired Size After Reconstruction: Same Family history of breast cancer: None Previous breast surgeries: Denies She is a Non-smoker, is not using any nicotine products, and is not currently taking steroids. The patient has rheumatoid arthritis but is not on steroids. 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 Otitis media 02/23/2005 Past Surgical History: Procedure Laterality Date DENTAL SURGERY PROCEDURE NEC 1989 LAPAROSCOPY; CHOLECYSTECTOMY 12/01/2007 Dr Bergeron at [facility] LIGATE/CUT OVIDUCT(S) AT SURGERY [place] ARTHROSCOPY KNEE DIAGNOSTIC W/WO SYNOVIAL BX SPX Right 2004 RIGHT SHOULDER rc [facility] ARTHRP KNE CONDYLE&PLATU MEDIAL&LAT COMPARTMENTS Left 2019 [facility] ortho US GUIDED BREAST BIOPSY RIGHT Right 04/29/2023 Current Outpatient Medications Medication Sig Dispense Refill FOLIC ACID 1 MG OR TABS 1 TABLET DAILY 0 0 MOBIC 7.5 MG PO TABS One pill by mouth once a day for pain as needed Methotrexate 2.5 MG Oral Tablet Take by mouth once a week. 6 tablets once a week Calcium 600-10 MG-MCG Oral Tablet Chewable Take by mouth 2 times a day. Orencia 250 MG Intravenous Solution Reconstituted (Abatacept) Administer intravenously. dexAMETHasone 4 MG Oral Tablet Take 2 tablets twice a day, starting on the previous day of the treatment for total 3 days and repeat with each chemo cycle 72 Tablet 0 Ondansetron HCl 8 MG Oral Tablet Take 1 Tablet by mouth every 8 hours as needed for Nausea. 30 Tablet 3 Prochlorperazine Maleate 10 MG Oral Tablet (Compazine) Take 1 Tablet by mouth every 6 hours as needed for Nausea. 60 Tablet 2 No current facility-administered medications for this visit. Review of patient's allergies indicates: No Known Allergies Social History Socioeconomic History Marital status: Spouse name: Not on file Number of children: Not on file Years of education: Not on file Highest education level: Not on file Occupational History Occupation: Retired from [employer] Tobacco Use Smoking status: Never Smokeless tobacco: Never Vaping Use Vaping Use: Never used Substance and Sexual Activity Alcohol use: No Drug use: Never Sexual activity: Not Currently Partners: Male Other Topics Concern Not on file Social History Narrative Lives in [place] with husbands No pets in the home Social Determinants of Health Financial Resource Strain: Not on file Food Insecurity: Not on file Transportation Needs: Not on file Physical Activity: Not on file Stress: Not on file Social Connections: Not on file Intimate Partner Violence: Not on file Housing Stability: Not on file Family History Problem Relation Age of Onset Heart attack Mother 70 Hypertension Father Other (brain hemorrhage) Father related to fall Cirrhosis Sister liver disease ? 43yo Clotting disorder Sister 38yo OF pe ? ESTROGEN INDUCED No Known Problems Brother No Known Problems Brother No Known Problems Brother Diabetes Grandmother (Maternal) Throat cancer Grandfather (Maternal) No Known Problems Grandmother (Paternal) Cancer Grandfather (Paternal) No Known Problems Daughter No Known Problems Son Other (lyme disease) Son with cardiac complications ROS: denies fevers, chills, headache, chest pain, shortness of breath, abdominal pain, nausea, vomiting, constipation, diarrhea Physical Examination (Performed with nutritional services director, Provider requested nutritional services director. Name of nutritional services director: Ttaiana Reddy PA-C) Filed Vitals: 06/24/23 1048 BP: 127/60 Pulse: 82 Weight: 64.4 kg (142 lb) Body mass index is 22.92 kg/m. body surface area is 1.73 meters squared. General: Awake, alert, no acute distress Breasts: no breast masses appreciated and breasts overall symmetric with left being slightly more ptotic and NAC more lateral SN-N BW N-IMF Ptosis Grade R 25cm 14cm 9.5cm 1 L 26cm 13.5cm 9cm 1-2 Abdomen: soft, ND, NT, adequate adiposity for reconstruction goals, significant ventral hernia superior to umbilicus that is not painful Assessment and Plan: 73-year-old female with right breast cancer and MRI guided biopsy pending for the left side who was planned to go undergo neoadjuvant chemotherapy and would like bilateral mastectomies with reconstruction following this. I feel the patient is a good candidate for bilateral breast reconstruction using tissue expanders and AlloDerm in the prepectoral plane. The patient is borderline for being a candidate for nipple sparing mastectomy from an aesthetic standpoint. I will discuss this further with Dr. Sol to see if it is safe from an oncologic standpoint. We will also see her breasts changed with the neoadjuvant treatment to make sure she has still a candidate for traditional nipple sparing mastectomy. The patient ultimately desired autologous reconstruction using her abdominal tissue. She has a significant ventral hernia which could be repaired at the time of Meaghan flap reconstruction as a combined case with General Surgery. Prior to her surgery, we will also have to see the effects that her rheumatoid arthritis infusion as well as methotrexate have on her healing. We may need to time for surgery with her infusions and may need to hold her methotrexate if she can tolerate. I had an extensive discussion with the patient about breast reconstruction options, including no reconstruction, implant-based reconstruction, or autologous tissue reconstruction. We talked about therisks and benefits of each in general, and how her specific cancer and oncologic treatments effect the risk profile of each option. The discussion included, but was not limited to the followin. No reconstruction and use of prosthesis: this would be the fastest recovery, would require only one surgery, has been shown to have lower scores for satisfaction when compared to other reconstructive options, is a good option for sicker patients or those who are not concerned with having breastsafter surgery. 2. Implant-based reconstruction: this would involve the placement of tissue expanders at the same time as her mastectomy. I explained that tissue expanders are temporary breast implants that we are able to inject with fluid in the clinic. They allow us to stretch the skin to a desired volume. After reaching this volume and waiting for a period of time, she would be taken to the OR for a day procedure in which the expanders are removed and replaced with more permanent implants. The advantage ofthis option is that the second surgery is a day surgery with a short recovery. The disadvantage is that implants have a much higher complication rate if she were to have radiation, which includes capsular contracture and aesthetic deformity. Also, a natural ptotic breasts is more difficult to accomplish with implant based reconstruction. I discussed the risk of bleeding, infection, hematoma, seroma, poor scarring, wound dehiscence, mastectomy skin flap necrosis, pain, numbness, tissue breast splitter failure, tissue breast splitter exposure, capsular contracture, asymmetry, contour deformities, and need for further surgeries. I discussed that the implant will create a breast mound that sits higher on her chest than the contralateral side, and would be difficult to match a natural ptotic breast. I discussed the weekly visits to the office forfilling of the breast splitter. I have also discussed the risk of anaplastic large cell lymphoma occurringaround the capsule of implants. I explained that this type of cancer is mostly associated with textured implants and expanders. I let her know that use smooth expanders and implants. 3. Autologous (own tissue) reconstruction: This would involve using her own tissue to reconstruct her breast or breasts. This can be done as a free tissue transfer or as a pedicled tissue transfer. The advantage of this reconstruction is that is often produces a more natural appearing breast with ptosis, there is no need for an implant, and we are able to replace radiated and damaged skin after radiation. The disadvantage and risks are a longer surgery (quoted 6-12 hours), admission to the ICU for monitoring post op, a longer hospitalization (average 2-3 days), a longer recovery, risk of partial or full flap loss, risk of fat necrosis, a second operative site, a risk of abdominal bulge/herni a/weakness, need for mesh and risk of wound dehiscence. I reinforced that the patient did not need to decide which type of reconstruction she ultimately desires at this time. I explained that if she decides to have breast reconstruction, the first step istissue breast splitter placement. Once her final pathology and oncologic treatments are decided, we will then re-visit the options and have another discussion with more information to guide us. If she were to need radiation or chemotherapy, she is aware that any complications following tissue breast splitter placement could delay this treatment. I also discussed that her final reconstruction would take place about 6 months after the completion of any radiation treatments. I explained the typical pre-operative, buzz-operative, and post-operative course after tissue breast splitter placement. I explained the breast splitter can be placed below the muscle or above the muscle. This is usually determined at the time of the surgery based on the viability of the skin flaps. I explained that at the time of tissue breast splitter placement, we often use an acellular dermal matrix (ADM) to helpus control the inferior and lateral position of the breast splitter if under the muscle or to control the location of the breast splitter if above the muscle. . It also allows us to expand the breast splitter faster. I explained that the FDA recently deemed this an off label use of ADMs because no initial studies were done. I reassured her that they have been used in breast reconstruction for many years, but did let her know it is an off label use. We discussed the need for general anesthesia and the expectation that she could go home or stay for1 night in the hospital after surgery. I explained the post- operative recovery time, activity restrictions, and time to return back to normal activity. The patient is aware that she will have drains placed at the time of surgery (two in each breast pocket), and these would remain in until she is seen in the clinic post operatively. The patient is also aware that the quality of the skin flaps after mastectomy will be assessed in the operating room. If there is any question of vascular compromise, either more skin will need to be resected, or there is a chance she will not have tissue expanders placed at that time. I explained they could be placed in a delayed fashion if this were to happen. I explained the risks, benefits, and alternatives to tissue breast splitter placement. The risks include, but are not limited to, bleeding, infection, pain, hematoma and/or seroma, delayed wound healing, wound dehiscence requiring breast splitter removal , asymmetry, scarring and scar burden, thromboembolic complications including DVT and PE, and need for revision surgery. If a nipple sparing mastectomy is performed, she may also have partial or full nipple and areolar complex necrosis as well as loss of nipple sensation. I reinforced the importance of a high protein diet pre-operatively and post- operatively while she is recovering to promote wound healing. The patient is also aware that any steroid use or smoking prior to her surgery will result in cancellation of her procedure. Photos were taken. I will order the appropriate tissue expanders for her breast/chest dimensions. Patient will require a PAT Phone Screening. Wil Hameed MD [facility] Plastic and Reconstructive Surgery Total time spent: 60min Time spent counseling and coordination of care: 45min documented in this encounter Nursing Notes * Floresita Vela MED ASSIST - 06/24/2023 10:49 AM EDT Chief Complaint Patient presents with NEW PATIENT Breast reconstruction. Verified patient. documented in this encounter Plan of Treatment Upcoming Encounters Date Type Department Care Team (Latest Contact Info) Description 07/03/2023 1:00 PM EDT Imaging Radiology [address] [place] [address] 07/03/2023 3:00 PM EDT Imaging Radiology [address] [place] [address] 07/08/2023 9:51 AM EDT Hospital Encounter OR [facility], Operating Room, [facility] - 4th Floor [address] [place] [address] Naun Ratliff MD [address] [place] [address] 07/08/2023 9:51 AM EDT - 07/08/2023 10:48 AM EDT Surgery OR [facility], Operating Room, [facility] - 4th Floor [address] [place] [address] Naun Ratliff MD [address] [place] [address] INSERT TUNNELED CENTRAL VENOUS ACCESS WITH SUBQ PORT 07/13/2023 7:30 AM EDT Laboratory Laboratory [facility] [place] [address] [place] [address] [place], Lab Scene [address] [facility] [place] [address] 07/13/2023 9:00 AM EDT Hem/Onc Treatment Hematology/Oncolog y Treatment, [place] [address] [place] [address] A[place], Chair 1 Hem Onc Scene [facility] [place] [address] Scheduled Procedures Name Priority Associated Diagnoses Date/Ti me INSERT TUNNELED CENTRAL VENOUS ACCESS WITH SUBQ PORT Malignant neoplasm of upper-outer quadrant of right breast in female, estrogen receptor positive (HCC) 07/08/2023 9:51 AM EDT Scheduled Referrals Name Type Priority Associated Diagnoses Orde r Schedule PLASTIC SURGERY REFERRAL OP Referral Within 10 days (routine) Malignant neoplasm of upper-inner quadrant of right breast in female, estrogen receptor positive (HCC) Ordered: 06/10/2023 Health Maintenance Due Date Last Done Comments [...] (HCC) documented in this encounter Care Teams Flame Gouger Relationship Specialty Start Date End Date Charlene York CRNP [facility] [place] [address] PCP - General Nurse Practitioner 03/11/23 documented as of this encounter
--- OUTSIDE RECORDS SUMMARY | 2023-07-21 02:17 | External Medical Summary ---
Author Name Unknown Address Unknown Organization [id number]:[facility] [address] [place] [address] Laboratory Report Ordering Provider Test Date Status SALO WALLIS 07/13/2023 07:37:12 Final Observation Date Value Abnormality Reference (Units ) Status BUN 07/13/2023 07:37:12 14 6-20 (mg/dL) Final Creatinine 07/13/2023 07:37:12 0.7 0.5-1.0 (mg/dL) Final Glomerular filtration rate/1.73 sq M.predicted [Volume Rate/Area] in Serum, Plasma or Blood by Creatinine-based formula (CKD-EPI) 07/13/2023 07:37:12 89 >=60 (mL/min) Final eGFR is calculated based on the CKD-EPI 2020 equation Sodium 07/13/2023 07:37:12 141 135-146 (m mol/L) Final Potassium 07/13/2023 07:37:12 3.7 3.5-5.1 (m mol/L) Final Cl 07/13/2023 07:37:12 104 98-107 (mm ol/L) Final CO2 07/13/2023 07:37:12 24 22-32 (mmo l/L) Final Anion gap 07/13/2023 07:37:12 13 7-15 (mmol /L) Final Glucose 07/13/2023 07:37:12 196 Above high normal 70 -120 (mg/dL) Final Albumin 07/13/2023 07:37:12 4.3 3.8-5.0 (g /dL) Final AST (Aspartate aminotransferase) 07/13/2023 07:37:12 24 10-35 (U/L) Fin al Alk Phos 07/13/2023 07:37:12 74 35-130 (U/ L) Final Bilirubin, Total 07/13/2023 07:37:12 0.3 <=1 .2 (mg/dL) Final Calcium 07/13/2023 07:37:12 10.2 8.4-10.2 ( mg/dL) Final Protein 07/13/2023 07:37:12 7.6 6.0-8.3 (g /dL) Final ALT (Alanine aminotransferase) 07/13/2023 07:37:12 29 10-35 (U/L) Tonny vergara Performing Location [facility] [address] [place] [address]
--- OUTSIDE RECORDS SUMMARY | 2023-07-21 02:17 | External Medical Summary | Summary of Care ---
Author Name Unknown Organization [facility] Address [address] [facility] [place] [address] Phone [phone] Care Team Providers Care Deckhand Fishing Vessel Name Role Phone Charlene York Primary Care Provider Encounter Details Date Type Department Care Team (Late st Contact Info) Description 06/30/2023 Orders Only Hematology/Oncology Nilda Parra [place] [address] [facility] [place] [phone] Faustino Sharif MD [address] [facility] [place] [address] Allergies No known active allergiesdocumented as of [...] Description 07/03/2023 1:00 PM EDT Imaging Radiology [address] 132 [facility] [place] [address] 07/03/2023 3:00 PM EDT Imaging Radiology [address] 132 [facility] [place] [address] 07/08/2023 9:51 AM EDT Hospital Encounter OR [facility], Operating Room, [facility] - [address] [place] [address] [address] [place] [address] Naun Ratliff MD [address] [place] [address] 07/08/2023 9:51 AM EDT - 07/08/2023 10:48 AM EDT Surgery OR [facility], Operating Room, [address] [place] [address] Naun Ratliff MD [address] [place] [address] INSERT TUNNELED CENTRAL VENOUS ACCESS WITH SUBQ PORT 07/13/2023 7:30 AM EDT Laboratory Laboratory [address] [place] [address] [place] [phone] [place], Lab Scenery [address] [place] [address] 07/13/2023 9:00 AM EDT Hem/Onc Treatment Hematology/Oncolog y Treatment, [place] [address] [place] [phone] [place], Chair 1 Hem Onc Scenery [address] [place] [address] Scheduled Procedures Name Priority Associated Diagnoses Date/Ti [...] filedocumented as of this encounter Care Teams Deckhand Fishing Vessel Relationship Specialty Start Date End Date Charlene York CRNP [address] [place] [address] PCP - General Nurse Practitioner 03/11/23 documented as of this encounter
--- OUTSIDE RECORDS SUMMARY | 2023-07-21 02:17 | External Medical Summary | Summary of Care ---
Author Name Unknown Organization [facility] Address [address] [facility] [place] [address] Phone [phone] Care Team Providers Care Hide Dyer Name Role Phone Charlene York Primary Care Provider Reason for Visit * Reason Onset Date Comments Precert Future 06/11/2023 [facility] Encounter Details Date Type Department Care Team (Late st Contact Info) Description 06/11/2023 Telephone Hematology/Oncology Nilda Parra [place] [address] [place] [phone] Faustino Sharif MD [address] [place] [address] Precert Future ([facility]) Allergies No known active allergiesdocumented as of [...] mid morning Asked for me to call [phone] * Telephone Encounter - Addi Jean RN [...] 11:00 AM EDT Office Visit Plastic Surgery, [facility] [address] [place] [address] Wil Hameed MD [address] [facility] [place] [address] 07/03/2023 1:00 PM EDT Imaging Radiology [address] 132 [facility] [place] [address] 07/03/2023 3:00 PM EDT Imaging Radiology [address] 132 [facility] [place] [address] 07/08/2023 9:51 AM EDT Hospital Encounter OR [facility], Operating Room, [facility] - [address] [place] [address] [address] [place] [address] Naun Ratliff MD [address] [place] [address] 07/08/2023 9:51 AM EDT - 07/08/2023 10:48 AM EDT Surgery OR [facility], Operating Room, [facility] - [address] [place] [address] [address] [place] [address] Naun Ratliff MD [address] [place] [address] INSERT TUNNELED CENTRAL VENOUS ACCESS WITH SUBQ [...] Negative Negative 06/22/2023 10:56 PM EDT LABORATORY [facility] Blood Venous blood specimen / Unknown Venipuncture / Unknown 06/22/2023 11:16 AM EDT 06/22/2023 11:17 AM EDT Faustino Sharif MD LAB BLOOD ORDERABLES [facility] [address] [place] [address] * HEPATITIS B SURFACE ANTIBODY (06/22/2023 11:16 AM EDT) Hepatitis B Surface Antibody, Quantitative <3.5 mIU/mL 06/22/2023 10:56 PM EDT LAB[facility]ATORY [facility] Hepatitis B Surface Antibody, Qualitative Negative 06/22/2023 10:56 PM EDT LAB[facility]ATORY [facility] Hepatitis B Surface Antibody, Interpretation NOT immune to Hepatitis B Virus 06/22/2023 10:56 PM EDT [facility] Comment: POSITIVE: >=11.5 mIU/mL INDETERMINATE: 8.5-<11.5 mIU/mL NEGATIVE: <8.5 mIU/mL Blood Venous blood specimen / Unknown Venipuncture / Unknown 06/22/2023 11:16 AM EDT 06/22/2023 11:17 AM EDT Faustino Sharif MD LAB BLOOD ORDERABLES LAB[facility]ORY [facility] [address] [place] [address] * HEPATITIS B CORE ANTIBODIES IGG AND IGM (06/22/2023 11:16 AM EDT) Hepatitis B Core Antibodies IgG and IgM Negative Negative 06/22/2023 10:56 PM EDT LAB[facility]ATORY [facility] Blood Venous blood specimen / Unknown Venipuncture / Unknown 06/22/2023 11:16 AM EDT 06/22/2023 11:17 AM EDT Faustino Sharif MD LAB BLOOD ORDERABLES Performing Organization Address City/[facility] Co de Phone Number [facility] [address] [place] [address] documented in this encounter Visit Diagnoses Diagnosis Malignant neoplasm of upper-outer quadrant of right breast in female, estrogen receptor positive (HCC)- Primary Encounter for screening for other viral diseases Malignant neoplasm of upper-outer quadrant of right breast in female, estrogen receptor positive (HCC) documented in this encounter Care Teams Hide Dyer Relationship Specialty Start Date End Date Charlene York CRNP [address] [place] [address] PCP - General Nurse Practitioner 03/11/23 documented as of this encounter
--- OUTSIDE RECORDS SUMMARY | 2023-07-21 02:17 | External Medical Summary | Summary of Care ---
Author Name Unknown Organization [facility] Address [address] [facility] [place] [address] Phone [phone] Care Team Providers Care Die Equipment Operator Name Role Phone Charlene York Primary Care Provider Reason for Visit * Reason Onset Date Comments Precert Future 06/11/2023 [facility] Encounter Details Date Type Department Care Team (Late st Contact Info) Description 06/11/2023 Telephone Hematology/Oncology Nilda Parra [place] [address] [place] [phone] Faustino Sharif MD [address] [place] [address] Precert Future ([facility]) Allergies No known active allergiesdocumented as of [...] 06/16/23. Port 07/08/23. * Telephone Encounter - Maagly Medina OSA - 06/15/2023 12:28 PM EDT [...] mid morning Asked for me to call [phone] * Telephone Encounter - Addi Jean RN [...] 11:00 AM EDT Office Visit Plastic Surgery, [facility] [address] [place] [address] Wil [facility] [address] 07/03/2023 1:00 PM EDT Imaging Radiology [address] [place] [address] 07/03/2023 3:00 PM EDT Imaging Radiology [address] [place] [address] 07/08/2023 9:51 AM EDT Hospital Encounter OR [facility], Operating Room, [facility] - 4th Floor [address] [place] [address] Naun Ratliff MD [address] [place] [address] 07/08/2023 9:51 AM EDT - 07/08/2023 10:48 AM EDT Surgery OR [facility], Operating Room, [facility] - 4th Floor [address] [place] [address] Naun Ratliff MD [address] [place] [address] INSERT TUNNELED CENTRAL VENOUS ACCESS WITH SUBQ [...] (HCC) documented in this encounter Care Teams Die Equipment Operator Relationship Specialty Start Date End Date Charlene York CRNP [address] [place] [address] PCP - General Nurse Practitioner 03/11/23 documented as of this encounter
--- OUTSIDE RECORDS SUMMARY | 2023-07-21 02:17 | External Medical Summary | Summary of Care ---
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, estrogen receptor positive (HCC) [C50.411, Z17.0] Procedures INSER TUNN ACC DEV;5 YRS/OLDER INSERT TUNNELED CENTRAL VENOUS ACCESS WITH SUBQ PORT Naun Ratliff MD [address] [address] Or [facility] [address] [address] Referral ID Status Reason Start Date Expiration Date Visits Re quested Visits Authorized [id number] Encounter Details Date Type Department Care Team (Latest Contact Info) Description 07/08/2023 8:20 AM EDT - 07/08/2023 11:26 AM EDT Hospital Encounter OR [facility], Operating Room, Main Hospital - 4th Floor [address] [address] Naun Ratliff MD [address] [address] Discharge Disposition: Home - Self Care Allergies No known active allergiesdocumented as of this encounter (statuses as of 07/08/2023) Medications Medication Sig Dispensed Refills Start Date [...] as of this encounter (statuses as of 07/08/2023) Active Problems Problem Noted Date Diagnosed Date [...] as of this encounter (statuses as of 07/08/2023) Resolved Problems Problem Noted Date Diagnosed Date Resolved Date Impacted cerumen 03/11/2023 Otitis media 03/11/2023 documented as of this encounter (statuses as of 07/08/2023) Immunizations Name Administration Dates Next Due SARS-COV-2 [...] Sign Reading Time Taken Comments Blood Pressure 120/60 07/08/2023 11:22 AM EDT Pulse 70 07/08/2023 11:22 AM EDT Temperature 36.5 C (97.7 F) 07/08/2023 11:22 AM E DT Respiratory Rate 16 07/08/2023 11:22 AM EDT Oxygen Saturation 100% 07/08/2023 11:22 AM EDT Inhaled Oxygen Concentration - - Weight 64.4 kg (142 lb) 07/08/2023 8:35 AM EDT Height 167.6 cm (5' 6") 07/08/2023 8:35 AM EDT Body Mass Index 22.92 07/08/2023 8:35 AM EDT documented in this encounter Discharge Instructions * Discharge Instr - AVS* Naun Ratliff MD - 07/08/2023 10:49 AM EDT Discharge Date: 07/08/2023 Provider: Dr. Naun Ratliff If you are experiencing any problems related to your procedure, please contact Interventional Radiology at [phone] during normal business hours: Thursday- Thursday 7:30 am - 4 pm. If a problem occursoutside of normal business hours, please call the hospital straight tooth gear generator operator at [phone] and ask for theInterventional Radiologist national basketball association scout. Contact scheduling for Interventional Radiology at [phone] during normal business hours: Thursday-Thursday, 7:30 am - 4 pm. The information below provides you with the instructions and the list of medications you need to betaking following discharge from the hospital. If you have any questions, please ask before leaving.Please carry this letter with you when you see your doctor in the clinic. If you have questions, you can reach us at the numbers above. SPECIAL INSTRUCTIONS Mediport Insertion (Implanted Central Venous Access) A Mediport is a sealed chamber covered by a silicone disc that is surgically placed in a pocket under the skin on the upper chest, just below the collarbone. This chamber connects to a flexible tube that goes into a large vein in the neck. The tip is near the heart. The port provides direct access to the bloodstream and can be used in drawing blood samples and giving intravenous fluids and medications. Some ports allow CT scan injections; these ports are referred to as "Power Ports." The port will be visible only as a small raised area beneath your skin. Home Care If you experience pain or discomfort at the site you may use a cold pack on the site and/or take acetaminophen (Tylenol) or your preferred pain medicine as directed. Avoid contact sports or any activity that may cause blunt force impact to the port area, as it may damage your port. Avoid strenuous activity for 24 to 48 hours after the procedure. Do not lift anything heavier than 10 pounds for 3 days after the procedure. Gradually increase your activity after 24 to 48 hours after the procedure. No dressing changes or wound care are needed at the insertion site. Your wound is closed with sutures on the inside and then sealed on the outside with a special "skin glue" called Dermabond (a surgical glue). Depending on your physician's preference, there may also be "steri strips" applied. It isvery important to let these special bandages fall off on their own. Please do not scrub or pull these bandages off. You may gently wash the area with soap and water. Depending on your physician's preference, there may also be gauze and Tegaderm (clear) bandage overthe Mediport insertion site. You may remove this bandage in 24 hours. You may shower in 24 hours. Gently wash the area and pat it dry. Please DO NOT take a bath, soak in a hot tub, or swim until the wound is completely healed. Your port must be accessed and flushed/heparinized every 30 days if it is not currently being used. When to Call Interventional Radiology Call Interventional Radiology right away if you have any of the following: Fever above 100 degrees Fahrenheit Increased bleeding, redness, swelling, warmth, or discharge at the incision site. Constant or increasing pain, numbness, coldness, or tingling around the incision area. Vomiting or nausea that does not go away If at any time you experience any of the following or feel you are having a medical emergency, [id number] for emergency assistance. Chest Pain Sudden, severe shortness of breath Rapid heart rate Sudden onset of weakness Do not smoke or use tobacco products in any way! If you feel suicidal or homicidal, please call the crisis hotline at 4-927-091-LRDP ([phone]) MODERATE SEDATION You may have received medication that made you comfortable/sedated you during your procedure. This is considered moderate sedation. This medication was given to relax you. You may also not remember having the procedure done. It may take up to 24 hours for this medication to be out of your system. Because of this, you should observe the following for the next 24 hours: Do not drink alcohol or take depressant drugs. Do not operate any type of machinery that requires hand-eye coordination. Do not sign any legal papers or documents. Do not make any financial decisions. You should be in the presence of an adult for the remainder of the day. If you are experiencing any problems related to your procedure, you should contact the Interventional Radiology physician unless otherwise directed. Driving: You may resume driving 2day . Diet: You may resume your current diet as tolerated. Return to work or school: You may return to school or work 2 days after the procedure, unless otherwise instructed by the physician. documented in this encounter Progress Notes * Naun Ratliff MD - 07/08/2023 10:[address] [facility] [address] OUTPATIENT SURGERY DISCHARGE SUMMARY NOTE Name: Sue Rivas Location: [facility] Date: 07/08/2023 Time: 10:53 AM Surgery Date: 07/08/2023 Procedure: INSERT TUNNELED CENTRAL VENOUS ACCESS WITH SUBQ PORT Right Surgeon: Naun Ratliff MD Discharge Diagnosis: port placed After examination of this patient, I have determined she is ready for discharge to home when the patient meets criteria. Discharge instructions were given to the patient. documented in this encounter H&P Notes * Naun Ratliff MD - 07/08/2023 9:50 AM EDT HISTORY & PHYSICAL - Interventional Radiology Service [facility] [address] Name: Sue Rivas Location: [facility] Date: 07/08/2023 Time: 9:50 AM CHIEF COMPLAINT: Chemo. Port placement HISTORY OF PRESENT ILLNESS: Right breast cancer, ER and IA positive, HER2 Jeb positive. 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 Otitis media 02/23/2005 Past Surgical History: Procedure Laterality Date DENTAL SURGERY PROCEDURE NEC 1989 LAPAROSCOPY; CHOLECYSTECTOMY 12/01/2007 Dr Bergeron at [facility] LIGATE/CUT OVIDUCT(S) AT SURGERY [place] ARTHROSCOPY KNEE DIAGNOSTIC W/WO SYNOVIAL BX SPX Right 2004 RIGHT SHOULDER rc [facility] [place] ARTHRP KNE CONDYLE&PLATU MEDIAL&LAT COMPARTMENTS Left 2019 [facility] ortho US GUIDED BREAST BIOPSY RIGHT Right 04/29/2023 Social History Socioeconomic History Marital status: Spouse name: Not on file Number of children: Not on file Years of education: Not on file Highest education level: Not on file Occupational History Occupation: Retired from [employer] Tobacco Use Smoking status: Never Smokeless tobacco: Never Vaping Use Vaping Use: Never used Substance and Sexual Activity Alcohol use: No Drug use: Never Sexual activity: Not Currently Partners: Male Other Topics Concern Not on file Social History Narrative Lives in [place] with husbands No pets in the home [...] Other (lyme disease) Son with cardiac complications Review of patient's allergies indicates: No Known Allergies Current Facility-Administered Medications Medication Dose Route Frequency Provider Last Rate Last Admin isolyte-S pH 7.4 infusion Intravenous Continuous Naun Ratliff MD 10 mL/hr at 07/08/23 0902 New Bag at 07/08/23 0902 REVIEW OF SYSTEMS: Constitutional: (-) fever chills sweats or weight loss Cardiovascular: (-) negative: no chest pain, dyspnea, syncope, or palpitations Pulmonary: (-) negative: no cough, wheezing, or shortness of breath Abdominal/GI: (-) negative: no pain, heartburn, dysphagia, bleeding, change in bowel habits, nauseaor vomiting OBJECTIVE: BP 139/72 | Pulse 73 | Temp 36.4 C (97.5 F) (Temporal Artery) | Resp 18 | Ht 1.676 m (5' 6") | Wt 64.4 kg (142 lb) | SpO2 100% | BMI 22.92 kg/m | BSA 1.73 m PHYSICAL EXAM: Constitutional: no acute distress CV: normal rate and rhythm, no murmur, gallops or rub Chest: normal respiratory effort, lungs clear to auscultation and percussion, breath sounds normal Abdomen: normal: soft, bowel sounds normal, no masses, tenderness or organomegaly LABS: CBC Results: PT INR Results: BUN Results: Lab Results Component Value Date/Time BUN - [facility] 16 06/22/2023 11:16 AM BUN - [facility] 16 05/14/2023 12:55 PM BUN - [facility] 17 03/11/2023 03:04 PM Creatinine Results: Lab Results Component Value Date/Time CREATININE - [facility] 0.9 06/22/2023 11:16 AM CREATININE - [facility] 0.8 05/14/2023 12:55 PM CREATININE - [facility] 0.8 03/11/2023 03:04 PM Potassium Results: Lab Results Component Value Date/Time POTASSIUM - [facility] 4.2 06/22/2023 11:16 AM POTASSIUM - [facility] 4.1 05/14/2023 12:55 PM POTASSIUM - [facility] 4.1 03/11/2023 03:04 PM INFORMED CONSENT: Yes PRE-SEDATION ASSESSMENT IMPRESSION/PLAN: Port placement Naun Ratliff MD documented in this encounter Nursing Notes * Raheem Trujillo, RN - 07/08/2023 11:29 AM EDT [place] [address] [facility] Discharge Note Name: Sue Rivas Date: 07/08/2023 Time: 11:29 AM Discharge Disposition: Home Responsible adult as escort home: Transport Mode: Ambulatory Accompanied by: Jamil Trujillo RN To: Car Belongings with patient: Yes Patient meets criteria to be transferred or discharged. * Patrick Ross RN - 07/08/2023 10:20 AM EDT Pt condition was reassessed by Dr. Naun Ratliff immediately prior to start of moderate sedation and procedure. * Kyle Duenas RN - 07/08/2023 8:30 AM EDT Patient does not meet criteria for testing. documented in this encounter OR Notes * OR Surgeon - Naun Ratliff MD - 07/08/2023 10:53 AM EDT Procedure: chest medical port placement July 08, 2023 INDICATION: central intravenous access needed for chemotherapy.] ATTENDING (OPERATING PHYSICIAN): [Evy] CONSENT: After a detailed discussion of the procedure, risks, benefits and alternative treatment options, informed consent was obtained. TIME OUT: A time out procedure was performed. The patient's identification was verified. Informed consent with agreement of procedure, site and position was obtained. All necessary equipment was available prior to procedure. CONTRAST: No contrast was administered. COMPLICATIONS: None. ANESTHESIA: [Local lidocaine.] [IV Versed.] [IV Fentanyl.] SEDATION TIME: [Start to end: [4451-4070]. Qualified nurse sedation observer [Mae Soto RN.] MEDICATIONS: See MAR PROCEDURE DESCRIPTION: The [right] neck and chest were prepped and draped in the usual sterile fashion. After local anesthesia, a small incision was made at the site of venous access in the neck. Using real-time ultrasound guidance, the internal jugular vein was punctured with a micro puncture needle. Digital ultrasound images were acquired and digitally archived. A wire and sheath were used to secure access to the internal jugular vein access using fluoroscopic guidance. [A second incision was made in the upper chest and a pocket was created. The medical port catheter was tunneled from the pocket to the venotomy site. A peel- away sheath was placed through the venotomy over the wire and the catheter was advanced through a peel-away sheath and positioned under fluoroscopic guidance. The catheter was then measured to [24] cm, cut, and attached to a power injectable port.] Once the medical port and catheter were in satisfactory position, the medical port was accessed, had appropriate blood return, and easily flushed and was locked with dilute heparin. [The incision wasthen closed in layers with absorbable sutures and tissue adhesive.] The venotomy site was closed with [absorbable suture and] tissue adhesive. I personally performed the procedure. Findings: Ultrasound shows an anechoic and compressible [right] internal jugular vein. The medical port is inthe upper chest with the catheter tip at the [right atrium] Impression: Successful placement of a chest power injectable medical port. * Operative Report Brief - Naun Ratliff MD - 07/08/2023 10:47 AM EDT PROCEDURE NOTE - Interventional Radiology [facility] [address] Name: Sue Rivas Location: [facility] Date: 07/08/2023 Time: 10:47 AM PROCEDURE: port placed BRICK AND BLOCK MASON: Dr. Naun Ratliff ANESTHESIA: conscious sedation COMPLICATIONS: none SPECIMEN: none ESTIMATED BLOOD LOSS: negligible FINDINGS: right IJ patent documented in this encounter Miscellaneous Notes * Sedation Note - Naun Ratliff MD - 07/08/2023 10:48 AM EDT Post Sedation Evaluation: Cardiovascular status: acceptable, BP returned to baseline, and hemodynamically stable Level of consciousness: awake and alert Airway patency: patent Distress - NAD Hydration status - well hydrated Nausea/vomiting - not present Pain Evaluation Pain Assessment Flowsheet Row Most Recent Value Pain Assessment Scale [facility] Scale 0-10 Pain Score 0 (no pain) Vital Signs: Temp: 36.4 C (97.5 F) (07/07 0835) BP: 123/68 (07/07 1045) Pulse: 73 (07/07 1045) Resp: 14 (07/07 1045) SpO2: 97 % (07/07 1045) I have personally examined the patient, prescribed the necessary medications as charted, and certify that Sue Rivas is recovered for safe discharge from my face to face care. * Pre-Sedation Assessment - Naun Ratliff MD - 07/08/2023 10:01 AM EDT PRE-SEDATION ASSESSMENT PRE-SEDATION ASSESSMENT: Port Placement Level of sedation planned: Moderate Patient's allergies reviewed: Yes H&P Review / Interval Note Documentation: There is no H&P on file. Difficulty with sedation / anesthesia: No Sleep apnea: No History of snoring: No History of difficult intubation: No Decreased ROM neck flexion/extension: No Tracheal deviation: No Decreased ability to open mouth / TMJ: No Loose teeth / dentures / partial: No Congenital deformities / abnormalities: No Dysphagia: No Mallampati Classification: II - soft palate, uvula, fauces visible Chest: Clear Heart: Regular Rhythm Adequate Vascular Access: Yes ASA Risk Stratification (Select One): ASA 2 - Mild systemic disease, no functional limitations The patient was identified and the procedure verified: Yes The patient was reevaluated immediately prior to the sedation: 07/08/2023 10:02 AM documented in this encounter Plan of Treatment Upcoming Encounters Date Type Department Care Team (Late st Contact Info) Description 07/13/2023 7:30 AM EDT Laboratory Laboratory [address] [place] [id number] [place], Lab [address] [place] [address] 07/13/2023 9:00 AM EDT Hem/Onc Treatment Hematology/Oncology Treatment, [address] [id number] [place], Chair 1 Hem Onc [facility] [address] [facility] [place] [address] Scheduled Procedures Name Priority Associated Diagnoses Date/Ti me INSERT TUNNELED CENTRAL VENOUS ACCESS WITH SUBQ PORT Malignant neoplasm of upper-outer quadrant of right breast in female, estrogen receptor positive (HCC) 07/08/2023 9:59 AM EDT Health Maintenance Due Date Last [...] this encounter Medical Devices Implanted Type Area Sas Programmer Device Identifier Shelf Expiration Date Model / Serial / Lot Power Port 8fr Sngl Lumen Plas - [id number] Implanted:Qty : 1 on 07/08/2023 by Naun Ratliff MD at OR [facility] Right: Chest CR BARD : PERIPHERAL VASCULAR [id number] 10/23/2024 [id number] / / [id number] documented as of this encounter Procedures Procedure Name Priority Date/Time Associated Diagnosis Comments IR INTERVENTIONAL RADIOLOGY PROCEDURE IN OR Routine 07/08/2023 10:40 AM EDT documented in this encounter Results * IR INTERVENTIONAL RADIOLOGY PROCEDURE IN OR (07/08/2023 10:40 AM EDT) 07/08/2023 10:5 5 AM EDT Impressions [facility] RADIOLOGY - 07/08/2023 10:52 AM EDT IMPRESSION: Successful placement of a chest power injectable medical port. Narrative [facility] RADIOLOG[facility] - 07/08/2023 10:52 AM EDT PROCEDURE: chest medical port placement July 08, 2023 INDICATION: central intravenous access needed for chemotherapy. ATTENDING (OPERATING PHYSICIAN): Evy CONSENT: After a detailed discussion of the procedure, risks, benefits and alternative treatment options, informed consent was obtained. TIME OUT: A time out procedure was performed. The patient's identification was verified. Informed consent with agreement of procedure, site and position was obtained. All necessary equipment was available prior to procedure. CONTRAST: No contrast was administered. COMPLICATIONS: None. ANESTHESIA: Local lidocaine. IV Versed. IV Fentanyl. SEDATION TIME: Start to end: . Qualified nurse sedation observer Mae Gomez RN. MEDICATIONS: See MAR PROCEDURE DESCRIPTION: The right neck and chest were prepped and draped in the usual sterile fashion. After local anesthesia, a small incision was made at the site of venous access in the neck. Using real-time ultrasound guidance, the internal jugular vein was punctured with a micro puncture needle. Digital ultrasound images were acquired and digitally archived. A wire and sheath were used to secure access to the internal jugular vein access using fluoroscopic guidance. A second incision was made in the upper chest and a pocket was created. The medical port catheter was tunneled from the pocket to the venotomy site. A peel-away sheath was placed through the venotomy over the wire and the catheter was advanced through a peel-away sheath and positioned under fluoroscopic guidance. The catheter was then measured to 24 cm, cut, and attached to a power injectable port. Once the medical port and catheter were in satisfactory position, the medical port was accessed, had appropriate blood return, and easily flushed and was locked with dilute heparin. The incision was then closed in layers with absorbable sutures and tissue adhesive. The venotomy site was closed with absorbable suture and tissue adhesive. I personally performed the procedure. FINDINGS: Ultrasound shows an anechoic and compressible right internal jugular vein. The medical port is in the upper chest with the catheter tip at the right atrium Procedure Note Naun Ratliff MD - 07/08/2023 PROCEDURE: chest medical port placement July 08, 2023 INDICATION: central intravenous access needed for chemotherapy. ATTENDING (OPERATING PHYSICIAN): Evy CONSENT: After a detailed discussion of the procedure, risks, benefits andalternative treatment options, informed consent was obtained. TIME OUT: A time out procedure was performed. The patient's identificationwas verified. Informed consent with agreement of procedure, site andposition was obtained. All necessary equipment was available prior toprocedure. CONTRAST: No contrast was administered. COMPLICATIONS: None. ANESTHESIA: Local lidocaine. IV Versed. IV Fentanyl. SEDATION TIME: Start to end: [id number]. Qualified nurse sedation observerMae Gomez RN. MEDICATIONS: See MAR PROCEDURE DESCRIPTION: The right neck and chest were prepped and draped inthe usual sterile fashion. After local anesthesia, a small incision wasmade at the site of venous access in the neck. Using real-timeultrasound guidance, the internal jugular vein was punctured with a micropuncture needle. Digital ultrasound images were acquired and digitallyarchived. A wire and sheath were used to secure access to the internaljugular vein access using fluoroscopic guidance. A second incision was made in the upper chest and a pocket was created.The medical port catheter was tunneled from the pocket to the venotomysite. A peel-away sheath was placed through the venotomy over the wire andthe catheter was advanced through a peel-away sheath and positioned underfluoroscopic guidance. The catheter was then measured to 24 cm, cut, andattached to a power injectable port. Once the medical port and catheter were in satisfactory position, themedical port was accessed, had appropriate blood return, and easilyflushed and was locked with dilute heparin. The incision was then closedin layers with absorbable sutures and tissue adhesive. The venotomy sitewas closed with absorbable suture and tissue adhesive. I personally performed the procedure. FINDINGS: Ultrasound shows an anechoic and compressible right internal jugular vein.The medical port is in the upper chest with the catheter tip at the rightatrium IMPRESSION IMPRESSION: Successful placement of a chest power injectable medical port. Naun Ratliff MD RAD SPECIAL PROCEDUR ES Performing Organization Address City/State/ZIP Co wy Phone Number [facility] documented in this encounter Administered Medications Inactive Administered Medications - up to 3 most recent administrations Medication Order MAR Action Action Date Dose Rate Site ceFAZolin in dextrose (Ancef) ivpb 2 g 2 g, IV Piggyback, ONCE, 1 dose, On 07/08/23 at 1045 New Bag 07/08/2023 10:28 AM EDT 2 g 1 00 mL/hr isolyte-S pH 7.4 infusion Intravenous, at 10 mL/hr, Plasma-LYTE 148, isolyte-S, and isolyte-S pH 7.4 are considered equivalent - including for MAR barcode scanning., CONTINUOUS, Starting on Thu07/08/23 at 0930, Until Thu07/08/23 at 1531, Pre-Op New Bag 07/08/2023 9:02 AM EDT 10 mL/hr documented in this encounter Active and Recently Administered Medications Times are shown in EDT. Scheduled Medication Order 07/06/2023 07/07/2023 07/08/2023 ceFAZolin in dextrose (Ancef) ivpb 2 g (COMPLETED) 2 g, IV Piggyback, ONCE, 1 dose, On Thu07/08/23 at 1045, Administer over 30 Minutes 1028 (New Bag - Prov ider: James Riddle, DARLINE) Continuous Medication Order 07/06/2023 07/07/2023 07/08/2023 isolyte-S pH 7.4 infusion Intravenous, at 10 mL/hr, Plasma-LYTE 148, isolyte-S, and isolyte-S pH 7.4 are considered equivalent - including for MAR barcode scanning., CONTINUOUS, Starting on Thu07/08/23 at 0930, Until Thu07/08/23 at 1531, Pre-Op 0902 (New Bag - Prov ider: Kyle Duenas RN) PRN Medication Order 07/06/2023 07/07/2023 07/08/2023 buffered lidocaine 1 % inj (CANCELED) ONCE PRN INTRA PROCEDURE, Starting on Thu07/08/23 at 1036, Until Thu07/08/23 at 1047, Intra-Op 1036 (Given - Provid er: Naun Ratliff MD) fentaNYL (PF) inj (CANCELED) ONCE PRN INTRA PROCEDURE, Starting on Thu07/08/23 at 1023, Until Thu07/08/23 at 1047, Intra-Op 1023 (Given - Provid er: James Riddle, DARLINE) hEParin 100 UNIT/ML Lock Flush inj (CANCELED) ONCE PRN INTRA PROCEDURE, Starting on Thu07/08/23 at 1036, Until Thu07/08/23 at 1047, Intra-Op 1036 (Given - Provid er: Naun Ratliff MD) midazolam (Versed) 2 MG/2ML inj (CANCELED) ONCE PRN INTRA PROCEDURE, Starting on Thu07/08/23 at 1024, Until Thu07/08/23 at 1047, Intra-Op 1024 (Given - Provid er: James Riddle RN) documented in this encounter Care Teams Stummel Selector Relationship Specialty Start Date End Date Charlene York CRNP [address] [place] [address] PCP - General Nurse Practitioner 03/11/23 documented as of this encounter
--- OUTSIDE RECORDS SUMMARY | 2023-07-21 02:17 | External Medical Summary ---
Author Name Unknown Address Unknown Organization K09:[facility] [place] [address] Laboratory Report Ordering Provider Test Date Status SALO WALLIS 07/13/2023 07:37:12 Final Observation Date Value Abnormality Reference (Units ) Status WBC, Total 07/13/2023 07:37:12 11.41 Above high normal 4 .00-10.80 (K/uL) Final RBC 07/13/2023 07:37:12 4.49 3.85-5.15 (M/uL) Final Hemoglobin 07/13/2023 07:37:12 13.5 12.0-15.3 (g/dL) Final HCT 07/13/2023 07:37:12 41.7 36.0-45.2 (%) Final MCV 07/13/2023 07:37:12 92.9 81.5-97.5 (fL) Final MCH 07/13/2023 07:37:12 30.1 27.0-34.0 (pg) Final MCHC 07/13/2023 07:37:12 32.4 32.0-36.0 (g/dL) Final RDW 07/13/2023 07:37:12 12.9 11.5-15.5 (%) Final Platelets 07/13/2023 07:37:12 278 140-400 (K /uL) Final MPV 07/13/2023 07:37:12 9.8 6.6-11.1 ( fL) Final Performing Location [facility] [place] [address]
--- OUTSIDE RECORDS SUMMARY | 2023-07-21 02:17 | External Medical Summary | Summary of Care ---
Author Name Unknown Organization [facility] Address [address] [facility] [place] [address] Phone [phone] Care Team Providers Care Tiedown Operator Name Role Phone Charlene York Primary Care Provider Reason for Visit * Reason Onset Date Comments Precert Future 06/11/2023 [facility] Encounter Details Date Type Department Care Team (Late st Contact Info) Description 06/11/2023 Telephone Hematology/Oncology [place] [address] [place] [address] Faustino Sharif MD [address] [place] [address] Precert Future ([facility]) Allergies No [...] mid morning Asked for me to call [phone] * Telephone Encounter - Addi Jean RN [...] 11:00 AM EDT Office Visit Plastic Surgery, [address] [address] Wil Hameed MD [address] [place] [address] 07/03/2023 1:00 PM EDT Imaging Radiology [address] [place] [address] 07/03/2023 3:00 PM EDT Imaging Radiology [address] [address] 07/08/2023 9:51 AM EDT Hospital Encounter OR [facility], Operating Room, [facility] - [address] [place] [address] [address] [place] [address] Naun Ratliff MD [address] [place] [address] 07/08/2023 9:51 AM EDT - 07/08/2023 10:48 AM EDT Surgery OR [facility], Operating Room, [address] [place] [place] [address] Naun Ratliff MD [address] [facility] [place] [address] INSERT TUNNELED CENTRAL VENOUS ACCESS WITH SUBQ [...] Negative Negative 06/22/2023 10:56 PM EDT LABORATORY [facility] Blood Venous blood specimen / Unknown Venipuncture / Unknown 06/22/2023 11:16 AM EDT 06/22/2023 11:17 AM EDT Faustino Sharif MD LAB BLOOD ORDERABLES [facility] [address] [place] [address] * HEPATITIS B SURFACE ANTIBODY (06/22/2023 11:16 AM EDT) Pathologist [facility] [place] Hepatitis B Surface Antibody, Quantitative <3.5 mIU/mL 06/22/2023 10:56 PM EDT [facility] Hepatitis B Surface Antibody, Qualitative Negative 06/22/2023 10:56 PM EDT [facility] Hepatitis B Surface Antibody, Interpretation NOT immune to Hepatitis B Virus 06/22/2023 10:56 PM EDT [facility] Comment: POSITIVE: >=11.5 mIU/mL INDETERMINATE: 8.5-<11.5 mIU/mL NEGATIVE: <8.5 mIU/mL Blood Venous blood specimen / Unknown Venipuncture / Unknown 06/22/2023 11:16 AM EDT 06/22/2023 11:17 AM EDT Faustino Sharif MD LAB BLOOD ORDERABLES Performing Organization Address City/[facility]/ZIP Co de Phone Number [facility] [address] [place] [address] * HEPATITIS B CORE ANTIBODIES IGG AND IGM (06/22/2023 11:16 AM EDT) Hepatitis B Core Antibodies IgG and IgM Negative Negative 06/22/2023 10:56 PM EDT [facility] Blood Venous blood specimen / Unknown Venipuncture / Unknown 06/22/2023 11:16 AM EDT 06/22/2023 11:17 AM EDT Faustino Sharif MD LAB BLOOD ORDERABLES [facility] [address] [place] [address] documented in this encounter Visit Diagnoses Diagnosis Malignant neoplasm of upper-outer quadrant of right breast in female, estrogen receptor positive (HCC)- Primary Encounter for screening for other viral diseases Malignant neoplasm of upper-outer quadrant of right breast in female, estrogen receptor positive (HCC) documented in this encounter Care Teams Tiedown Operator Relationship Specialty Start Date End Date Charlene York CRNP [address] [facility] [place] [address] PCP - General Nurse Practitioner 03/11/23 documented as of this encounter
--- OUTSIDE RECORDS SUMMARY | 2023-07-21 02:18 | External Medical Summary | Summary of Care ---
Author Name Unknown Organization [facility] Address [address] [place] [address] Phone [phone] Care Team Providers Care Kitchen Chef Name Role Phone Charlene Yokr Primary Care Provider Reason for Visit * Reason Onset Date Comments Order Request 06/16/2023 MRI Breast BX Encounter Details Date Type Department Care Team (Late st Contact Info) Description 06/16/2023 Telephone General Surgery, [facility] [address] [facility] [place] [address] Katheryn Sol MD 132 [facility] [place] [address] Order Request (MRI Breast BX) Allergies No known active allergiesdocumented as of this encounter (statuses as of 06/16/2023) Medications Medication Sig Dispensed Refills Start Date [...] as of this encounter (statuses as of 06/16/2023) Active Problems Problem Noted Date Diagnosed Date [...] as of this encounter (statuses as of 06/16/2023) Resolved Problems Problem Noted Date Diagnosed Date Resolved Date Impacted cerumen 03/11/2023 Otitis media 03/11/2023 documented as of this encounter (statuses as of 06/16/2023) Immunizations Name Administration Dates Next Due SARS-COV-2 [...] encounter Miscellaneous Notes * Addendum Note - Katheryn Sol MD - 06/16/2023 10:38 AM EDTAddended by: KATHERYN SOL on: 06/16/2023 10:38 AM Modules accepted: Orders * Telephone Encounter - Katheryn Sol MD - 06/16/2023 10:38 AM EDT Order placed. Thank you * Telephone Encounter - Cris Resendiz OSA - 06/16/2023 9:04 AM EDT Per 06/14 2nd look breast ultrasound recommendation, patient needs scheduled for a Left MRI guided biopsy. Please review and place appropriate order. She is scheduled and aware of first available MRI bx 07/03/23. Recommendation MRI guided biopsy recommended as per report from June 03, 2023. Thank you documented in this encounter Plan of Treatment Upcoming Encounters Date Type Department Care Team (Late st Contact Info) Description 06/16/2023 1:30 PM EDT Cardiac Studies Cardiac Studies [address] [place] [address] 06/18/2023 8:15 AM EDT Office Visit General Surgery, [facility] [address] [facility] [place] [address] Katheryn Sol MD [address] [place] [address] 06/22/2023 10:00 AM EDT Nurse Only Hematology/Oncology [facility] [place] [address] [place] [phone] [place], Nurse Hem Onc [address] [place] [address] 07/03/2023 1:00 PM EDT Imaging Radiology [address] 132 [facility] [place] [address] 07/03/2023 3:00 PM EDT Imaging Radiology [address] [place] [address] Scheduled Orders Name Type Priority Associated Diagnoses Orde r Schedule MRI GUIDED BREAST BX LEFT Medical Imaging Routine Abnormal MRI, breast Expected: 06/23/2023 (Approximate), Expires: 07/15/2024 Health Maintenance Due Date Last Done Comments [...] as of this encounter Visit Diagnoses Diagnosis Abnormal MRI, breast- Primary Other (abnormal) findings on radiological examination of breast documented in this encounter Care Teams Kitchen Chef Relationship Specialty Start Date End Date Charlene York CRNP [address] [place] [address] PCP - General Nurse Practitioner 03/11/23 documented as of this encounter
--- OUTSIDE RECORDS SUMMARY | 2023-07-21 02:18 | External Medical Summary | Summary of Care ---
Author Name Unknown Organization [facility] Address [address] [place] [address] Phone [phone] Care Team Providers Care Mathematical Sciences Professor Name Role Phone Charlene York Primary Care Provider Reason for Visit * Reason Onset Date Comments Order Request 06/16/2023 MRI Breast BX Encounter Details Date Type Department Care Team (Late st Contact Info) Description 06/16/2023 Telephone General Surgery, [facility] 132 [facility] [place] [address] Sol Sol MD 132 [facility] [place] [address] Order Request (MRI Breast BX) Allergies No [...] encounter Miscellaneous Notes * Telephone Encounter - Cris Resendiz OSA - 06/16/2023 9:04 AM EDT Per 06/14 2nd look breast ultrasound recommendation, patient needs scheduled for a Left MRI guided biopsy. Please review and place appropriate order. Recommendation MRI guided biopsy recommended as per report from June 03, 2023. Thank you documented in this encounter Plan of Treatment Upcoming Encounters Date Type Department Care Team (Late st Contact Info) Description 06/16/2023 1:30 PM EDT Cardiac Studies Cardiac Studies [address] [place] [address] 06/18/2023 8:15 AM EDT Office Visit General Surgery, [facility] [address] [place] [address] Sol Sol MD [address] [place] [address] 06/22/2023 10:00 AM EDT Nurse Only Hematology/Oncology [facility] [address] [place] [address] [place], Nurse Hem Onc [facility] [address] [place] [address] Health Maintenance Due Date Last Done Comments [...] filedocumented as of this encounter Care Teams Mathematical Sciences Professor Relationship Specialty Start Date End Date Chralene York CRNP [address] [address] PCP - General Nurse Practitioner 03/11/23 documented as of this encounter
--- OUTSIDE RECORDS SUMMARY | 2023-07-21 02:18 | External Medical Summary | Summary of Care ---
Author Name Unknown Organization [facility] Address [address] [place] [address] Phone [phone] Care Team Providers Care Fulfillment Specialist Name Role Phone Charlene York Primary Care Provider Encounter Details Date Type Department Care Team (Late st Contact Info) Description 2023 Telephone Plastic Surgery, [place] [address] [place] [address] Services, [facility] [address] [place] [address] Allergies No known active allergiesdocumented as of this encounter (statuses as of 2023) Medications Medication Sig Dispensed Refills Start Date [...] as of this encounter (statuses as of 2023) Active Problems Problem Noted Date Diagnosed Date [...] as of this encounter (statuses as of 2023) Resolved Problems Problem Noted Date Diagnosed Date Resolved Date Impacted cerumen 03/11/2023 Otitis media 03/11/2023 documented as of this encounter (statuses as of 2023) Immunizations Name Administration Dates Next Due SARS-COV-2 [...] encounter Miscellaneous Notes * Telephone Encounter - Kacey Iniguez OSA - 2023 1:38 PM EDT Malignant neoplasm of upper-inner quadrant of right breast in female, estrogen receptor positive (HCC) [C50.211, Z17.0] Comments Current Patient BMI: There is no height or weight on file to calculate BMI. 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 May need mastectomy. documented in this encounter Plan of Treatment Upcoming Encounters Date Type Department Care Team (Latest Contact Info) Description 06/18/2023 8:15 AM EDT Office Visit General Surgery, [facility] 132 [facility] [place] [address] Sol Sol MD 132 [facility] [place] [address] 06/22/2023 10:00 AM EDT Nurse Only Hematology/Oncology [facility] [place] [place] [address] [place] [phone] [place], Nurse Hem Onc [address] [place] [address] 07/03/2023 1:00 PM EDT Imaging Radiology [address] [facility] [place] [address] 07/03/2023 3:00 PM EDT Imaging Radiology [address] [facility] [place] [address] 07/08/2023 9:51 AM EDT Hospital Encounter OR [facility], Operating Room, [facility] - 4th Floor [address] [place] [address] Naun Ratliff MD [address] [place] [address] 07/08/2023 9:51 AM EDT - 07/08/2023 10:48 AM EDT Surgery OR [facility], Operating Room, [facility] - 4th Floor [address] [place] [address] Naun Ratliff MD [address] [place] [address] [place] [address] INSERT TUNNELED CENTRAL VENOUS ACCESS WITH SUBQ [...] filedocumented as of this encounter Care Teams Fulfillment Specialist Relationship Specialty Start Date End Date Charlene York CRNP [address] [place] [address] PCP - General Nurse Practitioner 03/11/23 documented as of this encounter
--- OUTSIDE RECORDS SUMMARY | 2023-07-21 02:18 | External Medical Summary ---
Author Name Unknown Address Unknown Organization K01:[facility] [address] [place] [address] Laboratory Report Ordering Provider Test Date Status SALO WALLIS 06/22/2023 11:16:47 Final Observation Date Value Abnormality Reference (Units) Status Hepatitis B virus surface Ab [Units/volume] in Serum or Plasma by Immunoassay 06/22/2023 11:16:47 <3.5 (mIU/mL) Final Hepatitis B virus surface Ab [Presence] in Serum by Immunoassay 06/22/2023 11:16:47 Negative Final HEPATITIS B SURFACE ANTIBODY, INTERPRETATION 06/22/2023 11:16:47 NOT immune to Hepatitis B Virus Final POSITIVE: >=11.5 mIU/mL
INDETERMINATE: 8.5-<11.5 mIU/mL
NEGATIVE: <8.5 mIU/mL Performing Location [facility] [address] [place] [address]
--- OUTSIDE RECORDS SUMMARY | 2023-07-21 02:18 | External Medical Summary | Summary of Care ---
Author Name Unknown Organization [facility] Address [address] [place] [address] Phone [phone] Care Team Providers Care Hearing Impaired Itinerant Teacher Name Role Phone Charlene York Primary Care Provider Reason for Visit * Reason Onset Date Comments Order Request 06/16/2023 MRI Breast BX Encounter Details Date Type Department Care Team (Late st Contact Info) Description 06/16/2023 Telephone General Surgery, [facility] 132 [facility] [place] [address] Sol Sol MD 132 [facility] [place] [address] Order Request (MRI Breast BX) Allergies No [...] 1:30 PM EDT Cardiac Studies Cardiac Studies [address] [place] [address] 06/18/2023 8:15 AM EDT Office Visit General Surgery, [facility] [address] [place] [address] Sol Sol MD [address] [place] [address] 06/22/2023 10:00 AM EDT Nurse Only Hematology/Oncology [facility] [address] [place] [address] [place], Nurse Hem Onc [facility] [address] [place] [address] Health Maintenance Due Date Last Done Comments [...] filedocumented as of this encounter Care Teams Hearing Impaired Itinerant Teacher Relationship Specialty Start Date End Date Charlene York CRNP [address] [place] [address] PCP - General Nurse Practitioner 03/11/23 documented as of this encounter
--- OUTSIDE RECORDS SUMMARY | 2023-07-21 02:18 | External Medical Summary | Summary of Care ---
Author Name Unknown Organization [facility] Address [address] [place] [address] Phone [phone] Care Team Providers Care Crane Oiler Name Role Phone Charlene York Primary Care Provider Reason for Visit * Reason Comments Follow Up Follow up after US. Encounter Details Date Type Department Care Team (Late st Contact Info) Description 06/18/2023 8:15 AM EDT Office Visit General Surgery, [facility] [address] [facility] [place] [id number] Sol Sol MD [address] [place] [id number] Malignant neoplasm of upper-inner quadrant of right breast in female, estrogen receptor positive (HCC)*; Abnormal MRI, breast Allergies No known active allergiesdocumented as of this encounter (statuses as of 06/18/2023) Medications Medication Sig Dispensed Refills Start Date [...] as of this encounter (statuses as of 06/18/2023) Active Problems Problem Noted Date Diagnosed Date [...] as of this encounter (statuses as of 06/18/2023) Resolved Problems Problem Noted Date Diagnosed Date Resolved Date Impacted cerumen 03/11/2023 Otitis media 03/11/2023 documented as of this encounter (statuses as of 06/18/2023) Immunizations Name Administration Dates Next Due SARS-COV-2 [...] Sign Reading Time Taken Comments Blood Pressure 130/56 06/18/2023 8:08 AM EDT Pulse 78 06/18/2023 8:08 AM EDT Temperature - - Respiratory Rate - - Oxygen Saturation - - Inhaled Oxygen Concentration - - Weight 64.2 kg (141 lb 9.6 oz) 06/18/2023 8:08 A M EDT Height - - Body Mass Index 22.85 05/14/2023 11:46 AM EDT documented in this encounter Progress Notes * Sol Sol MD - 06/18/2023 8:05 AM EDT [facility] GENERAL SURGERY F/U BREAST CANCER CLINIC NOTE Chief Complaint Patient presents with Follow Up Follow up after US. REASON FOR CONSULTATION: Right Breast Cancer Clinical Stage 1, triple positive HPI: Sue Rivas is a 73 year old female who is here to review next steps following her visit with medical oncology and breast MRI scan. Originally she was referred by DIMITRIOS Brown for evaluation and discussion of newly diagnosed breast cancer. This was found on self examination when she felt a lump. Not painful or tender. First felt in the beginning in March. No prior breast procedures. No family history of breast or ovarian cancer. She underwent a diagnostic mammogram and ultrasound which showed a spiculated mass in the upper inner right breast which corresponded to a 16 mm poorly defined hypoechoic mass at 1:00 8 cm from the nipple. She is s/p core biopsy, right ultrasound guided demonstrating a high grade invasive mammary carcinoma. Estrogen receptor status is positive. Progesterone receptor status is positive. HER-2/myrna receptors positive. Since her last visit, she has seen Dr. Sharif with plans for neoadjuvant chemotherapy with TCH - P. Her MRI breast was done and showed: 1) left side has a 8.7 mm area of NME. Targeted US negative. MRI biopsy is scheduled. 2) right side shows known cancer (2.2 cm) and at least three satellite lesions all within 2 cm in all directions. She is a B cup size. Satellite lesions were mammographically occult so would need MR screening going forward. Port is scheduled. Plastic surgery referral was placed. This is not scheduled yet but she did talk to someone yesterday. A. Right breast, mass, core biopsy: Invasive carcinoma, 1:00 mass 8 cm from nipple no special type (NST), grade 3 at 1530 Final Diagnosis Comment Order Comments Ultrasound guided core biopsy of right breast 1:00 8 cmfn hypoechoic suspicious mass, rule out carcinoma Gross Description A. Breast, Right. Received in formalin with a container labeled with "Sue Rivas", "[id number]", "1950" and " right breast one o'clock 8 cm from nipple". Received are multiple cores of tello-yellow fibroadipose tissue ranging from less than 0.1 cm to 1.5 cm in length, each approximately 0.2 cm in diameter. The specimen is entirely submitted in cassettes A1 and A2. Collection/ischemic time: time 12:17 PM, date 04/29/2023, time in formalin: time not provided, date not provided. Gross By: Microscopic Description Microscopic examination shows small nests of infiltrating epithelial cells without luminal formation with nuclei are 3-4 larger than normal duct epithelial nuclei and containing prominent nucleoli. Mitotic figures are evident (5- 10/10hpf). There is no evidence of lymphovascular invasion by D2-40 staining. Positive immunohistochemical staining of this invasive tumor with e-cadherin confirms the ductal differentiation. Immunohistochemical assays with differential basal cytokeratin 34?E12 and luminal cytokeratins 7/18 demonstrate a neoplastic monoclonal growth pattern. Immunohistochemical stain for p63 demonstrates a lack of myoepithelial cells around the invasive tumor nests. The largest dimension of invasive tumor in the specimen is 0.9 cm. Breast, right, Block [id number]: A. Right breast, mass, core biopsy: Invasive carcinoma, 1:00 mass 8 cm from nipple no special type (NST), grade 3 Estrogen Receptor (ER) protein expression is MODERATELY POSITIVE 50% nuclear positivity 2+ average intensity score (range 0 to 3+) Progesterone Receptor (DC) protein expression is STRONGLY POSITIVE 95% nuclear positivity 3+ average intensity score (range 0 to 3+) HER2 oncoprotein expression is POSITIVE ( 3+ average membranous intensity, > 10% of invasive tumor cells) complete weak/moderate membrane staining in >10% of the invasive tumor cells) to be tested by in-situ hybridization with results to follow in an addendum Case/Block [id number] Adequacy Adequate cellular specimen Interpretation AMPLIFIED for HER2 gene status BREAST ROS: No severe breast pain, No nipple discharge, and No recent change in shape/color GYNECOLOGIC HISTORY: LMP: No LMP recorded. Patient is postmenopausal. Menarche at age: approx 15 years -16 years of age. Menopause at age: 51 approx Number of children: 3 Patient's age at first live : Yes- 24 ? Did you breast feed any of your children: No Ever take oral contraceptives? Yes, took them for approx 3-4 years Ever take estrogen? No RADIOLOGIC INTERPRETATION: 06/03/23: Exam MRI BREAST BILATERAL W WO CONTRAST performed on 06/03/23. History Malignant neoplasm of upper-inner quadrant of right breast in female, estrogen receptor positive (hcc) The patient has no documented relevant family history. Films Compared Multiple priors to include bilateral mammogram and right breast ultrasound 04/15/2023, ultrasound-guided right breast biopsy and post clip mammogram 04/29/2023. No previous MRI available for comparison. Technique Multiplanar pre-and post gadolinium enhanced MRI of the breasts. The exam was interpreted in conjunction with [employer] software with kinetic and morphologic analysis and subtraction images. Findings There is extreme fibroglandular tissue and mild symmetric background parenchymal enhancement in both breasts. Left: A 4.0 x 8.7 x 6.5 mm (axial image 64, series 8 and sagittal image 105, series 18) linear non mass enhancement with persistent kinetics is noted in the near central anterior depth seen superomedial to the nipple. No other suspicious enhancing mass or non mass enhancement. There is no internal mammary or axillary lymphadenopathy. Right: A 11 x 10 x 22 mm (axial image 48, series 8 and sagittal image 47, series 18) irregular heterogeneously enhancing mass with architectural distortion and mixed kinetics on color map to include washout and in the upper inner posterior depth with susceptibility artifact within it indicative of tissue marker related to ultrasound-guided core biopsy 04/29/2023 is consistent with biopsy-proven ca rcinoma. A 5 x 9 mm enhancing mass with mixed kinetics and an adjacent 7 x 10 mm enhancing mass with predominantly persistent kinetics (axial image 48, series 8 and sagittal images 39 through 41, series 18) seen anterior and lateral to the biopsy-proven carcinoma are suspicious for satellite lesions. Pleasenote the lesions are approximately within 2 cm medial, anterior to the biopsy-proven carcinoma. A 4 x 6 mm enhancing mass with persistent kinetics in the middle depth (axial image 61 series 8 and sagittal image 45, series 18) seen approximately 2 cm inferior and anterior to the biopsy-proven carcinoma is also suspicious for a satellite lesion. No internal mammary or axillary lymphadenopathy. Extramammary findings: None. Impression: Left: A 4 x 8.7 x 6.5 mm linear non mass enhancement with persistent kinetics in the near central anterior depth seen superior and medial to the nipple. Focused ultrasound and ultrasound-guided core biopsy as needed are advised. If no correlate identified on ultrasound, MR guided biopsy is advised.BI-RADS 4, suspicious. Right: A 11 x 10 x 22 mm irregular heterogeneously enhancing mass with architectural distortion andmixed kinetics on color map with susceptibility artifact related to tissue marker within it is consistent with biopsy-proven carcinoma as per ultrasound-guided core biopsy 04/29/2023. At least 3 enhancing mass lesions as discussed above are suspicious for satellite lesions. BI-RADS 6, known biopsy-proven carcinoma. OVERALL BIRADS: 6, known biopsy-proven carcinoma. Recommendation: Focused left breast ultrasound and ultrasound-guided core biopsy advised. Please see comments above. If no correlate identified on ultrasound MR guided biopsy is recommended. Continued oncologic and surgical surveillance for the biopsy-proven known right breast carcinoma. 04/15/23 Result US BREAST LIMITED RIGHT MAMMOGRAM DIAGNOSTIC JOSE BILATERAL History Abnormal mammogram The patient has no documented relevant family history. Films Compared Priors in 2006 no longer available. This serves as new baseline. Findings Left MAMMOGRAM DIAGNOSTIC JOSE The left breast is extremely dense, which lowers the sensitivity of mammography. There is no evidence of suspicious masses, calcifications, or other abnormal findings in the left breast. Right MAMMOGRAM DIAGNOSTIC JOSE Patient presents with new right breast 12 o'clock lump for 2 weeks. No skin change, pain, nipple discharge. The right breast is extremely dense, which lowers the sensitivity of mammography. There area of interest is marked on the skin with a triangle. There is a subjacent spiculated mass posterior depth 12/1 o'clock. US BREAST LIMITED RIGHT The breast tissue has a heterogeneous background echotexture. On focused ultrasound, there is a corresponding shadowing irregularly marginated mass at 1 o'clock 8 cm from the nipple measuring 16 by 11 by 13 mm. Internal vascularity is demonstrated. Focused ultrasound of the right axilla demonstrates morphologically normal lymph nodes with fatty tello, normal vascularity, and thin cortices. Ultrasound-guided core biopsy of the right breast mass at 12/1 o'clock is recommended. The findingsand recommendations were discussed with the patient who expressed understanding. The referring clinical service was also notified. Impression Right MAMMOGRAM DIAGNOSTIC JOSE US BREAST LIMITED RIGHT Irregularly shaped and spiculated marginated right breast posterior depth 12/1 o'clock mass corresponding to palpable lump. The this corresponds to hypoechoic mass on ultrasound 16 x 11 x 13 mm. Left MAMMOGRAM DIAGNOSTIC JOSE No mammographic evidence of malignancy. BI-RADS Category: 5 - Highly Suggestive of Malignancy. Recommendation US guided breast core biopsy is recommended for the right breast. Screening mammogram in 1 year is recommended for the left breast. EXAM US GUIDED BREAST BIOPSY RIGHT; MAMMOGRAM POST BIOPSY CLIP PLACEMENT- 04/29/2023 12:37 pm; 04/29/2023 12:45 pm HISTORY Referred for ultrasound guided core biopsy of a 16 x 16 x 11 mm hypoechoic mass at 1 o'clock 8 cm from nipple seen on ultrasound 04/15/2023. COMPARISON Bilateral diagnostic mammogram and right breast ultrasound 04/15/2023. TECHNIQUE ANESTHESIA: 1% lidocaine SWIMMING TEACHER: Dr. Duong was present for and performed the entire procedure. The following procedure/examinations were performed: - Ultrasound guided core biopsy and tissue marker placement - Post clip/tissue marker placement unilateral mammogram Following a discussion of the risks and benefits of the procedure as well as a discussion of alternatives to this procedure, the patient was given the opportunity to ask questions. Once the patient'squestions were answered to her satisfaction, informed consent was signed by the patient. A timeout,with verification of patient name and site of procedure was performed by Dr. Duong in the presence of angio technologist and it was confirmed that procedure matches verbalized consent. FINDINGS Preliminary ultrasound demonstrates a 16 x 16 x 11 mm poorly defined hypoechoic mass at 1 o'clock 8cm from nipple, right breast. Using aseptic technique, local anesthesia with 1% buffered lidocaine, a small skin incision was made with a surgical blade to permit passage of the 14 gauge core biopsy needle. A spring activated/ automated [employer]era biopsy device was utilized. Under direct sonographic guidance and visualization, several passes were made through the target and core specimen obtained. The core specimen were placed in formalin and submitted for histopathologic analysis. Under direct sonographic guidance and visualization, a heart shaped tissue marker was placed within the lesion for future reference. Post procedural mammogram verified tissue marker placement. The patient tolerated the procedure well and there were no complications. Written discharge instructions were given to the patient and also reviewed verbally with her. The patient expressed understanding of the instructions and was discharged from the department in stable condition. IMPRESSION IMPRESSION 1. Ultrasound guided core biopsy of a 16 x 16 x 11 mm poorly defined hypoechoic mass at 1 o'clock 8cm from nipple, right breast followed by tissue marker placement. 2. Position of the tissue marker is confirmed on unilateral mammogram obtained following the ultrasound-guided core biopsy and tissue marker placement. 3. Core specimen submitted for histopathologic interpretation. 4. A supplement/addendum to this report will follow pending receipt of pathology results. Further follow-up and management recommendations will be forthcoming once this has been accomplished. 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] No current facility-administered medications for this visit. ALLERGIES: Allergies as of 06/18/2023 (No Known Allergies) SOCIAL HISTORY: Social History Tobacco Use Smoking status: Never Smokeless tobacco: Never Substance Use Topics Alcohol use: No Vaping/E-Cigarette Use Vaping/E-Cigarette Use Never User Vaping/E-Cigarette Substances Vaping/E-Cigarette Devices ROS: GEN: no weight loss, fever, fatigue HEENT: no changes in vision or hearing, no sinus problems, no sore throat, no hoarseness RESPIRATORY: no cough, wheezing, SOB or change in breathing CARDIOVASCULAR: no exertional chest pain, dyspnea, palpitations GI: no melena, hemetemesis, no vomiting or diarrhea : no dysuria, hematuria, frequency MUSCULOSKELETAL: RA is well managed PSYCHIATRIC: no significant anxiety or depression, unchanged sleep pattern HEME: no bleeding tendency, no clotting tendency NEURO: no significant headache, no seizures , no tremors SKIN: no new rashes, no itching PHYSICAL EXAMINATION: Blood pressure 130/56, pulse 78, weight 64.2 kg (141 lb 9.6 oz). Constitutional: alert, healthy Head: normocephalic, atraumatic Eyes: conjunctiva non-injected, sclera white Ears: pinna normal shape and color Back: normal curvature Neuro: alert, gait normal, motor normal BREAST EXAMINATION: not repeated today Smaller breasted Right Breast: Right Breast: Masses noted: Yes, upper inner breast 1:00 8 cm FN there is a 1.5-2 cm mass which causes a visible protrusion of her skin Post XRT edema: No Post XRT erythema: No Other palpable abnormality: No Skin: Skin retraction: No Peau d'orange: No Telangectasia: No Scar(s) present: No Other changes: No Right Nipple: Nipple inversion: No Pagets: No Nipple discharge: No Right Lymph Nodes: Arm edema: No Palpable axillary adenopathy: No Palpable supraclavicular adenopathy: No Previous axillary incision: No Left Breast: Left Breast: Masses noted: No Post XRT edema: No Post XRT erythema: No Other palpable abnormality: No Skin: Skin retraction: No Peau d'orange: No Telangectasia: No Scar(s) present: No Other changes: No Left Nipple: Nipple inversion: No Pagets: No Nipple discharge: No Left Lymph Nodes: Arm edema: No Palpable axillary adenopathy: No Palpable supraclavicular adenopathy: No Previous axillary incision: No IMPRESSION: 73 year-old woman with newly diagnosed triple positive right breast cancer in the upper inner breast which measures 16 mm on imaging. This was found on workup of a palpable lump. Since her last visitshe has met with Medical Oncology with plans for neoadjuvant chemotherapy. We reviewed her MRI scanand her images were shown to her today. We discussed that there are 4 separate tumors within the rig ht breast which occupied a fair amount of volume given that she is B cup size. We reviewed that 3 of these are mammographically occult. While lumpectomy would remain an option, she would likely have a cosmetic deformity and would be at a higher risk for local recurrence. In addition she would require MRI screening going forward. For this reason, I think it is more reasonable to consider a right mastectomy. We discussed that the local recurrence risk would be under 5% with mastectomy as some breast tissue is left to support the skin. We reviewed the different choices of reconstruction briefly. We reviewed the use of a tissue control board operator often and how this is expanded sequentially and then a final reconstruction done at a later point. Her reconstructive choices would be reviewed with her by plastic surgery. We discussed the need for MRI guided breast biopsy on the left side. We reviewed that if this is benign, she could be followed with imaging. We discussed that there is no benefit to contralateral prophylactic mastectomy. We reviewed that if malignancy is found, she could opt for breast conservationon the left or a mastectomy on the left side. Breast conservation would include a lumpectomy and radiation therapy. We did discuss the effects of radiation on any possible later reconstruction shouldshe later decide on a mastectomy. We reviewed the pros and cons of breast conservation with lower risk and leaving an intact breast for sexual/arousal function. We did discuss the short term use of MRI to ensure that the finding is stable. Following this she could return to mammographic screening alone for the left side. We discussed sentinel lymph node biopsy with identification of the nodes with both blue dye (risks of tattooing of skin) and technetium sulfur colloid. Removal of 2-4 nodes with a small (<8%) riskof lymphedema was reviewed. This procedure would be done at the same time as the breast procedure. PLAN: Neoadjuvant chemotherapy. Plastic surgery consult Await biopsy results from MR biopsy left side. Await patient decision (likely right mastectomy, reconstruction and sln biopsy). I spent a total of 30-39 minutes (exact time 38 mins) on the date of service in preparation, delivery, and documentation of the care provided to Sue Rivas excluding any time spent in the performance of separately billed services. Sol Sol M.D. 06/18/2023 10:14 AM documented in this encounter Nursing Notes * Floresita Vela MED ASSIST - 06/18/2023 8:09 AM EDT Chief Complaint Patient presents with Follow Up Follow up after US. Verified patient. documented in this encounter Plan of Treatment Upcoming Encounters Date Type Department Care Team (Latest Contact Info) Description 06/22/2023 10:00 AM EDT Nurse Only [facility] [place] [address] [place] [phone] Aida, Nurse Hem Onc [facility] [address] [place] [phone] 07/03/2023 1:00 PM EDT Imaging Radiology [facility] [place] [address] [address] 07/03/2023 3:00 PM EDT Imaging Radiology [facility] [place] [address] [address] 07/08/2023 9:51 AM EDT Hospital Encounter OR [facility], Operating Room, [facility] - 4th Floor [address] [place] [id number] Naun Ratliff MD [address] [place] [id number] 07/08/2023 9:51 AM EDT - 07/08/2023 10:48 AM EDT Surgery OR [facility], Operating Room, [facility] - 4th Floor [address] [place] [address] Naun Ratliff MD [address] [place] [id number] INSERT TUNNELED CENTRAL VENOUS ACCESS WITH SUBQ [...] encounter Visit Diagnoses Diagnosis Malignant neoplasm of upper-inner quadrant of right breast in female, estrogen receptor positive (HCC)- Primary Abnormal MRI, breast Other (abnormal) findings on radiological examination of breast Malignant neoplasm of upper-outer quadrant of right breast in female, estrogen receptor positive (HCC) documented in this encounter Care Teams Crane Oiler Relationship Specialty Start Date End Date Charlene York CRNP [address] [place] [address] PCP - General Nurse Practitioner 03/11/23 documented as of this encounter
--- OUTSIDE RECORDS SUMMARY | 2023-07-21 02:18 | External Medical Summary | Summary of Care ---
Author Name Unknown Organization [facility] Address [address] [facility] [place] [address] Phone [phone] Care Team Providers Care Wedding Makeup Artist Name Role Phone Charlene York Primary Care Provider Reason for Visit * Reason Onset Date Comments Precert Future 06/11/2023 [facility] Encounter Details Date Type Department Care Team (Late st Contact Info) Description 06/11/2023 Telephone Hematology/Oncology Nilda Parra [place] [address] [place] [address] Faustino Sharif MD [address] [place] [address] Precert Future ([facility]) Allergies No known active allergiesdocumented as of this encounter (statuses as of 06/15/2023) Medications Medication Sig Dispensed Refills Start Date [...] as of this encounter (statuses as of 06/15/2023) Active Problems Problem Noted Date Diagnosed Date [...] as of this encounter (statuses as of 06/15/2023) Resolved Problems Problem Noted Date Diagnosed Date Resolved Date Impacted cerumen 03/11/2023 Otitis media 03/11/2023 documented as of this encounter (statuses as of 06/15/2023) Immunizations Name Administration Dates Next Due SARS-COV-2 [...] 1:30 PM EDT Cardiac Studies Cardiac Studies [address] [place] [address] 06/18/2023 8:15 AM EDT Office Visit General Surgery, [facility] [address] [place] [address] Sol Sol MD [address] [place] [address] Scheduled Orders Name Type Priority Associated Diagnoses [...] other viral diseases Expected: 06/11/2023, Expires: 06/10/2024 Health Maintenance Due Date Last Done Comments [...] Encounter for screening for other viral diseases documented in this encounter Care Teams Wedding Makeup Artist Relationship Specialty Start Date End Date Charlene York CRNP [address] [place] [address] PCP - General Nurse Practitioner 03/11/23 documented as of this encounter
--- OUTSIDE RECORDS SUMMARY | 2023-07-21 02:18 | External Medical Summary | Summary of Care ---
Author Name Unknown Organization [facility] Address [address] [place] [address] Phone [phone] Care Team Providers Care Vehicle Service Attendant Name Role Phone Charlene York Primary Care Provider Reason for Visit * Reason Onset Date Comments Order Request 06/16/2023 MRI Breast BX Encounter Details Date Type Department Care Team (Late st Contact Info) Description 06/16/2023 Telephone General Surgery, [facility] 132 [facility] [place] [address] Sol Sol MD 132 [facility] [place] [address] Order Request (MRI Breast BX) Allergies No [...] 1:30 PM EDT Cardiac Studies Cardiac Studies [address] [place] [address] 06/18/2023 8:15 AM EDT Office Visit General Surgery, [facility] [address] [place] [address] Sol Sol MD [address] [place] [address] 06/22/2023 10:00 AM EDT Nurse Only Hematology/Oncology [facility] [address] [place] [address] [place], Nurse Hem Onc [facility] [address] [place] [address] Health Maintenance Due Date Last Done Comments [...] filedocumented as of this encounter Care Teams Vehicle Service Attendant Relationship Specialty Start Date End Date Charlene York CRNP [address] [place] [address] PCP - General Nurse Practitioner 03/11/23 documented as of this encounter
--- OUTSIDE RECORDS SUMMARY | 2023-07-21 02:18 | External Medical Summary | Summary of Care ---
Author Name Unknown Organization [facility] Address [address] [facility] [place] [address] Phone [phone] Care Team Providers Care Drafter Castings Name Role Phone Charlene York Primary Care Provider Reason for Visit * Reason Onset Date Comments Precert Future 06/11/2023 [facility] Encounter Details Date Type Department Care Team (Late st Contact Info) Description 06/11/2023 Telephone Hematology/Oncology Nilda Parra [place] [address] [place] [address] Faustino Sharif MD [address] [place] [address] Precert Future ([facility]) Allergies No [...] chemo teaching * Telephone Encounter - Pilar Virea RN - 06/15/2023 8:53 AM EDT Referral [...] mid morning Asked for me to call [phone] * Telephone Encounter - Addi Jean RN [...] 1:30 PM EDT Cardiac Studies Cardiac Studies [address] [place] [address] 06/18/2023 8:15 AM EDT Office Visit General Surgery, [facility] [address] [place] [address] Sol Sol MD [address] [place] [address] 06/22/2023 10:00 AM EDT Nurse Only Hematology/Oncology [facility] [address] [place] [phone] A[place], Nurse Hem Onc [address] [place] [address] Scheduled Orders Name Type Priority Associated Diagnoses [...] diseases documented in this encounter Care Teams Drafter Castings Relationship Specialty Start Date End Date Charlene York CRNP [address] [place] [address] PCP - General Nurse Practitioner 03/11/23 documented as of this encounter
--- OUTSIDE RECORDS SUMMARY | 2023-07-21 02:18 | External Medical Summary ---
Author Name Unknown Address Unknown Organization K09:[facility] [place] [address] Laboratory Report Ordering Provider Test Date Status SALO WALLIS 06/22/2023 11:16:47 Final Observation Date Value Abnormality Reference (Units ) Status SYNC LEUKOCYTES IN BLOOD BY AUTOMATED COUNT 06/22/2023 11:16:47 6.21 4.00-10.80 (K/uL) Final Segs 06/22/2023 11:16:47 66.2 40.0-75.0 (%) Final Lymphs % 06/22/2023 11:16:47 25.8 18.0-42.0 (%) Final Monos 06/22/2023 11:16:47 6.4 1.0-11.0 (%) Final Eosinophils 06/22/2023 11:16:47 1.0 0.0-6.0 (%) Final Basos 06/22/2023 11:16:47 0.6 0.0-2.0 (%) Final Absolute Segs 06/22/2023 11:16:47 4.11 1.80-7.70 (K/uL) Final Lymphs, absolute 06/22/2023 11:16:47 1.60 1.00-4.80 (K/ul) Final Monos, Abs 06/22/2023 11:16:47 0.40 0.00-1.10 (K/uL) Final Eos, Abs 06/22/2023 11:16:47 0.06 0.00-0.70 (K/uL) Final Basos, Abs 06/22/2023 11:16:47 0.04 0.00-0.20 (K/uL) Final Performing Location [facility] [place] [address]
--- OUTSIDE RECORDS SUMMARY | 2023-07-21 02:18 | External Medical Summary ---
Author Name Unknown Address Unknown Organization K01:[facility] - [address] [place] [address] Laboratory Report Ordering Provider Test Date Status SALO WALLIS 06/22/2023 11:16:47 Final Observation Date Value Abnormality Reference (Units ) Status Hepatitis B virus core Ab [Presence] in Serum 06/22/2023 11:16:47 Negative Negative Final Performing Location [facility] - [address] [place] [address]
--- OUTSIDE RECORDS SUMMARY | 2023-07-21 02:18 | External Medical Summary | Summary of Care ---
Author Name Unknown Organization [facility] Address [address] [facility] [place] [address] Phone [phone] Care Team Providers Care Superintendent Container Terminal Name Role Phone Charlene York Primary Care Provider Reason for Visit * Reason Onset Date Comments Precert Future 06/11/2023 [facility] Encounter Details Date Type Department Care Team (Late st Contact Info) Description 06/11/2023 Telephone Hematology/Oncology Nilda Parra [place] [address] [place] [address] Faustino Sharif MD [address] [place] [address] Precert Future ([facility]) Allergies No known active allergiesdocumented [...] mid morning Asked for me to call [phone] * Telephone Encounter - Addi Jean RN [...] 1:30 PM EDT Cardiac Studies Cardiac Studies [address] [place] [address] 06/18/2023 8:15 AM EDT Office Visit General Surgery, [facility] [address] [place] [address] Sol Sol MD [address] [place] [address] Scheduled Orders Name Type Priority Associated Diagnoses [...] diseases documented in this encounter Care Teams Superintendent Container Terminal Relationship Specialty Start Date End Date Charlene York CRNP [address] [place] [address] PCP - General Nurse Practitioner 03/11/23 documented as of this encounter
--- OUTSIDE RECORDS SUMMARY | 2023-07-21 02:18 | External Medical Summary ---
Author Name Unknown Address Unknown Organization K09:[facility]- - [address] [place] [address] Laboratory Report Ordering Provider Test Date Status SALO WALLIS 06/22/2023 11:16:47 Final Observation Date Value Abnormality Reference (Units ) Status BUN 06/22/2023 11:16:47 16 6-20 (mg/dL) Final Creatinine 06/22/2023 11:16:47 0.9 0.5-1.0 (mg/dL) Final Glomerular filtration rate/1.73 sq M.predicted [Volume Rate/Area] in Serum, Plasma or Blood by Creatinine-based formula (CKD-EPI) 06/22/2023 11:16:47 73 >=60 (mL/min) Final eGFR is calculated based on the CKD-EPI 2020 equation Sodium 06/22/2023 11:16:47 140 135-146 (m mol/L) Final Potassium 06/22/2023 11:16:47 4.2 3.5-5.1 (m mol/L) Final Cl 06/22/2023 11:16:47 103 98-107 (mm ol/L) Final CO2 06/22/2023 11:16:47 28 22-32 (mmo l/L) Final Anion gap 06/22/2023 11:16:47 9 7-15 (mmol /L) Final Glucose 06/22/2023 11:16:47 92 70-120 (mg /dL) Final Albumin 06/22/2023 11:16:47 4.2 3.8-5.0 (g /dL) Final AST (Aspartate aminotransferase) 06/22/2023 11:16:47 27 10-35 (U/L) Final Alk Phos 06/22/2023 11:16:47 71 35-130 (U/ L) Final Bilirubin, Total 06/22/2023 11:16:47 0.4 <=1 .2 (mg/dL) Final Calcium 06/22/2023 11:16:47 9.9 8.4-10.2 ( mg/dL) Final Protein 06/22/2023 11:16:47 7.3 6.0-8.3 (g /dL) Final ALT (Alanine aminotransferase) 06/22/2023 11:16:47 17 10-35 (U/L) Final Performing Location [facility] 56- 02 - [address] [place] [address]
--- OUTSIDE RECORDS SUMMARY | 2023-07-21 02:18 | External Medical Summary | Summary of Care ---
Author Name Unknown Organization [facility] Address [address] [place] [facility] [place] [address] Phone [phone] Care Team Providers Care Hand Worker Name Role Phone Charlene York Primary Care Provider Reason for Visit * Reason Comments Outpatient Testing Encounter Details Date Type Department Care Team (Late st Contact Info) Description 06/22/2023 11:40 AM EDT Laboratory Laboratory Scenery [facility] [address] [place] [address] [facility] Scenery [address] [place] [address] Malignant neoplasm of upper-outer quadrant of right breast in female, estrogen receptor positive (HCC); Encounter for screening for other viral diseases Allergies No known active allergiesdocumented as of [...] 11:00 AM EDT Office Visit Plastic Surgery, [address] [place] [address] Wil Hameed MD [address] [place] [address] 07/03/2023 1:00 PM EDT Imaging Radiology [address] [place] [address] 07/03/2023 3:00 PM EDT Imaging Radiology [address] [place] [address] 07/08/2023 9:51 AM EDT Hospital Encounter OR [facility], Operating Room, [facility] - [address] [place] [address] [address] [place] [address] Naun Ratliff MD [address] [place] [address] 07/08/2023 9:51 AM EDT - 07/08/2023 10:48 AM EDT Surgery OR [facility], Operating Room, [address] [place] [address] Naun Ratliff MD [address] [place] [address] INSERT TUNNELED CENTRAL VENOUS ACCESS WITH SUBQ PORT Pending Results Name Type Priority Associated Diagnoses Date /Time COMPREHENSIVE METABOLIC PANEL Lab STAT Malignant neoplasm of upper-outer quadrant of right breast in female, estrogen receptor positive (HCC) 06/22/2023 11:16 AM EDT HEPATITIS B CORE ANTIBODIES IGG AND IGM [...] viral diseases 06/22/2023 11:16 AM EDT Scheduled Procedures Name Priority Associated Diagnoses Date/Ti [...] Not on filedocumented as of this encounter Procedures Procedure Name Priority Date/Time Associated Diagnosis Comments DIFFERENTIAL, AUTOMATED STAT 06/22/2023 11:16 AM EDT Malignant neoplasm of upper-outer quadrant of right breast in female, estrogen receptor positive (HCC) CBC STAT 06/22/2023 11:16 AM EDT Malignant neoplasm of upper-outer quadrant of right breast in female, estrogen receptor positive (HCC) CBC STAT 06/22/2023 11:16 AM EDT Malignant neoplasm of upper-outer quadrant of right breast in female, estrogen receptor positive (HCC) documented in this encounter Results * DIFFERENTIAL, AUTOMATED (06/22/2023 11:16 AM EDT) WBC 6.21 4.00 - 10.80 K/uL 06/22/2023 11:25 AM EDT [facility] 56-02 Neutrophils % 66.2 40.0 - 75.0 % 06/22/2023 11:25 AM EDT [facility] [place] 56-02 Lymphocytes % 25.8 18.0 - 42.0 % 06/22/2023 11:25 AM EDT [facility] [place] 56-02 Monocytes % 6.4 1.0 - 11.0 % 06/22/2023 11:25 AM EDT [facility] [place] 56-02 Eosinophils % 1.0 0.0 - 6.0 % 06/22/2023 11:25 AM EDT LAB[facility]ATORY [facility] 56-02 Basophils % 0.6 0.0 - 2.0 % 06/22/2023 11:25 AM EDT [facility] [place] 56-02 Absolute Neutrophils 4.11 1.80 - 7.70 K/uL 06/22/2023 11:25 AM EDT [facility] [place] 56-02 Absolute Lymphocytes 1.60 1.00 - 4.80 K/ul 06/22/2023 11:25 AM EDT [facility] [place] 56-02 Absolute Monocytes 0.40 0.00 - 1.10 K/uL 06/22/2023 11:25 AM EDT [facility] [place] 56-02 Absolute Eosinophils 0.06 0.00 - 0.70 K/uL 06/22/2023 11:25 AM EDT [facility] [place] 56-02 Absolute Basophils 0.04 0.00 - 0.20 K/uL 06/22/2023 11:25 AM EDT [facility] [place] 56-02 Blood Venous blood specimen / Unknown Venipuncture / Unknown 06/22/2023 11:16 AM EDT 06/22/2023 11:17 AM EDT Faustino Sharif MD LAB BLOOD ORDERABLES [facility] 56- [address] [place] [address] * CBC (06/22/2023 11:16 AM EDT) WBC 6.21 4.00 - 10.80 K/uL 06/22/2023 11:[address]T [address] RBC 4.52 3.85 - 5.15 M/uL 06/22/2023 11:25 AM EDT [address] HGB 13.7 12.0 - 15.3 g/dL 06/22/2023 11:[address]T [address] HCT 42.0 36.0 - 45.2 % 06/22/2023 11:25 AM EDT [address] MCV 92.9 81.5 - 97.5 fL 06/22/2023 11:25 AM EDT [facility] 56 MCH 30.3 27.0 - 34.0 pg 06/22/2023 11:25 AM EDT [facility] 56 MCHC 32.6 32.0 - 36.0 g/dL 06/22/2023 11:25 AM EDT [facility] 56 RDW 13.1 11.5 - 15.5 % 06/22/2023 11:25 AM EDT [facility] 56 PLT 274 140 - 400 K/uL 06/22/2023 11:25 AM EDT [facility] 56 MPV 9.5 6.6 - 11.1 fL 06/22/2023 11:25 AM EDT [facility] 56 Blood Venous blood specimen / Unknown Venipuncture / Unknown 06/22/2023 11:16 AM EDT 06/22/2023 11:17 AM EDT Faustino Sharif MD LAB BLOOD ORDERABLES [facility] 56-[address] [place] [address] documented in this encounter Visit Diagnoses Diagnosis Malignant neoplasm of upper-outer quadrant of right breast in female, estrogen receptor positive (HCC) Encounter for screening for other viral diseases Malignant neoplasm of upper-outer quadrant of right breast in female, estrogen receptor positive (HCC) documented in this encounter Care Teams Hand Worker Relationship Specialty Start Date End Date Charlene York CRNP [address] [place] [address] PCP - General Nurse Practitioner 03/11/23 documented as of this encounter
--- OUTSIDE RECORDS SUMMARY | 2023-07-21 02:18 | External Medical Summary | Summary of Care ---
Author Name Unknown Organization [facility] Address [address] [place] [address] Phone [phone] Care Team Providers Care Cheese Blender Name Role Phone Charlene York Primary Care Provider Reason for Visit * Reason Onset Date Comments Order Request 06/16/2023 MRI Breast BX Encounter Details Date Type Department Care Team (Late st Contact Info) Description 06/16/2023 Telephone General Surgery, [facility] 132 [facility] [place] [address] Katheryn Sol MD 132 [facility] [place] [address] Order Request (MRI Breast BX) Allergies No [...] 1:30 PM EDT Cardiac Studies Cardiac Studies [address] [place] [address] 06/18/2023 8:15 AM EDT Office Visit General Surgery, [facility] 132 [facility] [place] [address] Katheryn Sol MD [address] [place] [address] 06/22/2023 10:00 AM EDT Nurse Only Hematology/Oncology [facility] [place] [address] [place] [phone] [place], Nurse Hem Onc [address] [place] [address] 07/03/2023 1:00 PM EDT Imaging Radiology [address] 132 [facility] [place] [address] 07/03/2023 3:00 PM EDT Imaging Radiology [address] [place] [address] Scheduled Orders Name Type Priority Associated Diagnoses [...] breast documented in this encounter Care Teams Cheese Blender Relationship Specialty Start Date End Date Charlene York CRNP [address] [place] [address] PCP - General Nurse Practitioner 03/11/23 documented as of this encounter
--- OUTSIDE RECORDS SUMMARY | 2023-07-21 02:18 | External Medical Summary ---
Author Name Unknown Address Unknown Organization K01:[facility] - [address] [place] [address] Laboratory Report Ordering Provider Test Date Status SALO WALLIS 06/22/2023 11:16:47 Final Observation Date Value Abnormality Reference (Units ) Status Hep B surface Ag 06/22/2023 11:16:47 Negative Neg ative Final Performing Location [facility] - [address] [place] [address]
--- OUTSIDE RECORDS SUMMARY | 2023-07-21 02:18 | External Medical Summary | Summary of Care ---
Author Name Unknown Organization [facility] Address [address] [facility] [place] [address] Phone [phone] Care Team Providers Care Health Services Rn Name Role Phone Charlene York Primary Care Provider Reason for Visit * Reason Onset Date Comments Scheduling 2023 Encounter Details Date Type Department Care Team (Late st Contact Info) Description 2023 Telephone Hematology/Oncology [facility] Aida [place] [address] [place] [address] Faustino Sharif MD [address] [place] [address] Scheduling Allergies No known active allergiesdocumented as of [...] encounter Miscellaneous Notes * Telephone Encounter - Nani Rios OSA - 2023 8:59 AM EDT Spoke to patient to schedule the Mediport Insertion for 07/07 at [facility]. Patient wanted to wait until she had her MRI guided breast biopsy first before she had the Mediport put in. Patient identified by: name Person taught: Patient METHOD: Lecture-telephone interview PATIENT INSTRUCTIONS GIVEN: - General Preoperative Instructions Reviewed - NPO Instructions Reviewed, pt to stop eating 8 hours prior to procedure and stop drinking 2 hoursprior to procedure. -Hot Roll Inspector required Location and check-in instructions Verbalizes understanding of education: Yes Procedure date at time of Imaging Encounter: 07/07 What procedure is patient having? Mediport Insertion Laterality confirmed as Not Applicable Does the patient have a yellow bar? did not The Patient was given the opportunity to ask questions concerning the procedure. Signature: LISANDRO Garcia 2023 documented in this encounter Plan of Treatment Upcoming Encounters Date Type Department Care Team (Latest Contact Info) Description 06/18/2023 8:15 AM EDT Office Visit General Surgery, [facility] 132 [facility] [place] [address] Sol Sol MD [address] [place] [address] 06/22/2023 10:00 AM EDT Nurse Only Hematology/Oncology [facility] Aida [place] [address] [place] [phone] Aida, Nurse Hem Onc [address] [place] [address] 07/03/2023 1:00 PM EDT Imaging Radiology [address] 132 [facility] [place] [address] 07/03/2023 3:00 PM EDT Imaging Radiology [address] 132 [facility] [place] [address] 07/08/2023 9:51 AM EDT Hospital Encounter OR [facility], Operating Room, [facility] - 4th Floor [address] [place] [address] Naun Ratliff MD [address] [place] [address] 07/08/2023 9:51 AM EDT - 07/08/2023 10:48 AM EDT Surgery OR [facility], Operating Room, [facility] - 4th Floor [address] [place] [address] Naun Ratliff MD [address] [place] [address] INSERT TUNNELED CENTRAL VENOUS ACCESS WITH SUBQ [...] filedocumented as of this encounter Care Teams Health Services Rn Relationship Specialty Start Date End Date Charlene York CRNP [address] [place] [address] PCP - General Nurse Practitioner 03/11/23 documented as of this encounter
--- OUTSIDE RECORDS SUMMARY | 2023-07-21 02:18 | External Medical Summary | Summary of Care ---
Author Name Unknown Organization [facility] Address [address] [place] [address] Phone [phone] Care Team Providers Care Director Sales And Trade Marketing Name Role Phone Charlene York Primary Care Provider Reason for Visit * Reason Onset Date Comments FYI 06/15/2023 Encounter Details Date Type Department Care Team (Late st Contact Info) Description 06/15/2023 Telephone Access Center, [place] [address] [facility] *DO NOT REMOVE THIS DEPARTMENT* [place] [phone] Services, Scheduling [address] [place] [address] Allergies No known active allergiesdocumented as of [...] Encounter - Magaly Medina OSA - 06/15/2023 12:27 PM EDT See other tele enc that has the info in about scheduling * Telephone Encounter - Elma Jenkins OSA - 06/15/2023 11:56 AM EDT Patient calling states she is returning a call to magaly. documented in this encounter Plan of Treatment Upcoming Encounters Date Type Department Care Team (Late st Contact Info) Description 06/16/2023 1:30 PM EDT Cardiac Studies Cardiac Studies [address] [place] [address] 06/18/2023 8:15 AM EDT Office Visit General Surgery, [facility] [address] [place] [address] Sol Sol MD [address] [place] [address] 06/22/2023 10:00 AM EDT Nurse Only Hematology/Oncology [facility] [place] [address] [place] [phone] [place], Nurse Hem Onc [facility] 200 [facility] [place] [address] Health Maintenance Due Date Last Done Comments [...] filedocumented as of this encounter Care Teams Director Sales And Trade Marketing Relationship Specialty Start Date End Date Charlene York CRNP [address] [place] [address] PCP - General Nurse Practitioner 03/11/23 documented as of this encounter
--- OUTSIDE RECORDS SUMMARY | 2023-07-21 02:18 | External Medical Summary | Summary of Care ---
Author Name Unknown Organization [facility] Address [address] [place] [address] Phone [phone] Care Team Providers Care District Manager Major Accounts Sales Name Role Phone Charlene York Primary Care Provider Reason for Visit * Reason Onset Date Comments Order Request 06/16/2023 MRI Breast BX Encounter Details Date Type Department Care Team (Late st Contact Info) Description 06/16/2023 Telephone General Surgery, [facility] 132 [facility] [place] [address] Sol Sol MD 132 [facility] [place] [address] Order Request (MRI Breast BX) Allergies No [...] 1:30 PM EDT Cardiac Studies Cardiac Studies [address] [place] [address] 06/18/2023 8:15 AM EDT Office Visit General Surgery, [facility] 132 [place] [address] Sol Sol MD [address] [place] [address] 06/22/2023 10:00 AM EDT Nurse Only Hematology/Oncology [facility] [place] [address] [place] [phone] A[place], Nurse Hem Onc [address] [place] [address] 07/03/2023 1:00 PM EDT Imaging Radiology [address] 132 [place] [address] 07/03/2023 3:00 PM EDT Imaging Radiology [address] [place] [address] Health Maintenance Due Date Last Done Comments [...] filedocumented as of this encounter Care Teams District Manager Major Accounts Sales Relationship Specialty Start Date End Date Charlene York CRNP [address] [place] [address] PCP - General Nurse Practitioner 03/11/23 documented as of this encounter
--- OUTSIDE RECORDS SUMMARY | 2023-07-21 02:18 | External Medical Summary | Summary of Care ---
Author Name Unknown Organization [facility] Address [address] [facility] [place] [address] Phone [phone] Care Team Providers Care Cricket Coach Name Role Phone Charlene York Primary Care Provider Encounter Details Date Type Department Care Team (Late st Contact Info) Description 06/22/2023 10:00 AM EDT Nurse Only Hematology/Oncology [facility] [place] [address] [place] [address] Aida, Nurse Hem Onc [facility] [address] [place] [phone] Arrived Allergies No known active allergiesdocumented as of [...] Care Team (Latest Contact Info) Description 06/22/2023 11:40 AM EDT Laboratory Laboratory [place] [address] [place] [id number] Garth Parra [place] [address] [place] [address] Malignant neoplasm of upper-outer quadrant of right breast in female, estrogen receptor positive (HCC); Encounter for screening for other viral diseases 06/24/2023 11:00 AM EDT Office Visit Plastic Surgery, [facility] [address] [place] [address] Wil Hameed MD [address] [place] [address] 07/03/2023 1:00 PM EDT Imaging Radiology [address] [address] 07/03/2023 3:00 PM EDT Imaging Radiology [address] [address] 07/08/2023 9:51 AM EDT Hospital Encounter OR [facility], Operating Room, [facility] - [address] [place] [address] [address] [place] [address] Naun Ratliff MD [address] [facility] [place] [address] 07/08/2023 9:51 AM EDT - 07/08/2023 10:48 AM EDT Surgery OR [facility], Operating Room, [facility] - [address] [place] [address] [address] [place] [address] Naun Ratliff MD [address] [place] [address] INSERT TUNNELED CENTRAL VENOUS ACCESS WITH SUBQ [...] filedocumented as of this encounter Care Teams Cricket Coach Relationship Specialty Start Date End Date Charlene York CRNP [address] [place] [address] PCP - General Nurse Practitioner 03/11/23 documented as of this encounter
--- OUTSIDE RECORDS SUMMARY | 2023-07-21 02:18 | External Medical Summary ---
Author Name Unknown Address Unknown Organization K09:[facility] [place] [address] Laboratory Report Ordering Provider Test Date Status SALO WALLIS 06/22/2023 11:16:47 Final Observation Date Value Abnormality Reference (Units ) Status WBC, Total 06/22/2023 11:16:47 6.21 4.00-10.8 0 (K/uL) Final RBC 06/22/2023 11:16:47 4.52 3.85-5.15 (M/uL) Final Hemoglobin 06/22/2023 11:16:47 13.7 12.0-15.3 (g/dL) Final HCT 06/22/2023 11:16:47 42.0 36.0-45.2 (%) Final MCV 06/22/2023 11:16:47 92.9 81.5-97.5 (fL) Final MCH 06/22/2023 11:16:47 30.3 27.0-34.0 (pg) Final MCHC 06/22/2023 11:16:47 32.6 32.0-36.0 (g/dL) Final RDW 06/22/2023 11:16:47 13.1 11.5-15.5 (%) Final Platelets 06/22/2023 11:16:47 274 140-400 (K /uL) Final MPV 06/22/2023 11:16:47 9.5 6.6-11.1 ( fL) Final Performing Location [facility] [place] [address]
--- OUTSIDE RECORDS SUMMARY | 2023-07-21 02:19 | External Medical Summary | Summary of Care ---
Author Name Unknown Organization [facility] Address [address] [place] [address] Phone [phone] Care Team Providers Care Office Machine Punch Operator Name Role Phone Charlene York Primary Care Provider Reason for Referral * Evaluate & Treat - Unlimited Visits (Within 10 days (routine)) - Authorized Specialty Diagnoses / Procedures Referred By Annabelle martines Referred To Contact Plastic Surgery Diagnoses Malignant neoplasm of upper-inner quadrant of right breast in female, estrogen receptor positive (HCC) Sol Sol MD [address] [place] [address] Referral ID Status Reason Start Date Expiration Date Visits Requested Visits Authorized [id number] Authorized Specialty Services Required 06/10/2023 999 999 Question Answer Referral Priority Within 10 days (routine) Where should this appointment be scheduled? [facility] What condition is the patient being seen for? Breast Reconstruction Comments Current Patient BMI: There is no height or weight on file to calculate BMI. 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 May need mastectomy. Encounter Details Date Type Department Care Team (Late st Contact Info) Description 06/10/2023 Telephone General Surgery, [facility] [address] [place] [address] Sol Sol MD [address] [place] [address] Allergies No known active allergiesdocumented as of this encounter (statuses as of 06/12/2023) Medications Medication Sig Dispensed Refills Start Date [...] Solution Reconstituted (Abatacept) Administer intravenously. 0 Active documented as of this encounter (statuses as of 06/12/2023) Active Problems Problem Noted Date Diagnosed Date [...] as of this encounter (statuses as of 06/12/2023) Resolved Problems Problem Noted Date Diagnosed Date Resolved Date Impacted cerumen 03/11/2023 Otitis media 03/11/2023 documented as of this encounter (statuses as of 06/12/2023) Immunizations Name Administration Dates Next Due SARS-COV-2 [...] encounter Miscellaneous Notes * Telephone Encounter - Tahmina Bonds OSA - 06/11/2023 3:30 PM EDT Pt returning Mell's call. * Telephone Encounter - Mell Ferreira OSA - 06/11/2023 10:29 AM EDT Lmom to return call * Telephone Encounter - Mell Ferreira OSA - 06/10/2023 10:40 AM EDT Per radiology, They are going to schedule an US only and then have her come back if something is seen. Do you want me to arrange an office visit after the US? * Telephone Encounter - Charlene York CRNP - 06/10/2023 10:10 AM EDT Noted. Dea, MSN, [facility] * Telephone Encounter - Sol Sol MD - 06/10/2023 7:34 AM EDT MR results discussed with pt. 1) left side has a 8.7 mm area of NME. US and possible biopsy suggested. If no correlate, will needMR biopsy. Orders placed. Could you help her schedule please? 2) right side shows known cancer (2.2 cm) and at least three satellite lesions all within 2 cm in all directions. She is a B cup size. Satellite lesions were mammographically occult so would need MR screening going forward. Option of wide lumpectomy with cosmetic deformity vs mastectomy with/ without reconstruction discussed. Plastic surgery consult placed. Mell, could you help her schedule plastic surgery appt and the US/ biopsy above and an appt with me to discuss again after the biopsy? Thank you! Dr. Sharif, she has appt with you tomorrow. Drs. Love and Yoseph - if one of you could see, it would be appreciated. Neoadjuvant chemo decision to be made tomorrow. Thank you! documented in this encounter Plan of Treatment Upcoming Encounters Date Type Department Care Team (Late st Contact Info) Description 06/15/2023 8:00 AM EDT Imaging Radiology [facility] 1st [facility] [address] [place] [address] 06/15/2023 8:30 AM EDT Imaging Radiology [address] [address] Scheduled Orders Name Type Priority Associated Diagnoses Orde r Schedule US BREAST LIMITED LEFT Medical Imaging Routine Abnormal MRI, breast Expected: 2023 (Approximate), Expires: 07/09/2024 US GUIDED BREAST BIOPSY LEFT Medical Imaging Routine Abnormal MRI, breast Expected: 2023 (Approximate), Expires: 07/09/2024 Scheduled Referrals Name Type Priority Associated Diagnoses [...] radiological examination of breast Malignant neoplasm of upper-inner quadrant of right breast in female, estrogen receptor positive (HCC) documented in this encounter Care Teams Office Machine Punch Operator Relationship Specialty Start Date End Date Charlene York CRNP [address] [place] [address] PCP - General Nurse Practitioner 03/11/23 documented as of this encounter
--- OUTSIDE RECORDS SUMMARY | 2023-07-21 02:19 | External Medical Summary | Summary of Care ---
Author Name Unknown Organization [facility] Address [address] [facility] [place] [address] Phone [phone] Care Team Providers Care Financial Representative Name Role Phone Charlene York Primary Care Provider Reason for Visit * Reason Onset Date Comments Precert Future 06/11/2023 [facility] Encounter Details Date Type Department Care Team (Late st Contact Info) Description 06/11/2023 Telephone Hematology/Oncology Nilda Par[place] [address] [place] [address] Faustino Sharif MD [address] [place] [address] Precert Future ([facility]) Allergies No known active allergiesdocumented as of this encounter (statuses as of 06/11/2023) Medications Medication Sig Dispensed Refills Start Date [...] as of this encounter (statuses as of 06/11/2023) Active Problems Problem Noted Date Diagnosed Date Malignant neoplasm of upper- outer quadrant of right breast in female, estrogen receptor positive 06/11/2023 SPINAL STENOSIS-LUMBAR 08/29/2004 ADVANCE DIRECTIVE INFORMATION 07/12/2004 Overview: Pt stated she will bring in a copy of her Living Will Arthritis, 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/09/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 05/09/2004 documented as of this encounter (statuses as of 06/11/2023) Resolved Problems Problem Noted Date Diagnosed Date Resolved Date Impacted cerumen 03/11/2023 Otitis media 03/11/2023 documented as of this encounter (statuses as of 06/11/2023) Immunizations Name Administration Dates Next Due SARS-COV-2 [...] Team (Late st Contact Info) Description 06/18/2023 11:00 AM EDT Imaging Radiology [facility] [address] [address] 06/18/2023 11:30 AM EDT Imaging Radiology [address] [address] Scheduled Orders Name Type Priority Associated Diagnoses [...] diseases documented in this encounter Care Teams Financial Representative Relationship Specialty Start Date End Date Charlene York CRNP [address] [place] [address] PCP - General Nurse Practitioner 03/11/23 documented as of this encounter
--- OUTSIDE RECORDS SUMMARY | 2023-07-21 02:19 | External Medical Summary | Summary of Care ---
Author Name Unknown Organization [facility] Address [address] [facility] [address] Phone [phone] Care Team Providers Care Quality Auditor Name Role Phone Charlene York Primary Care Provider Reason for Visit * Reason Onset Date Comments Scheduling 06/11/2023 Encounter Details Date Type Department Care Team (Late st Contact Info) Description 06/11/2023 Telephone Hematology/Oncology [facility] [place] [address] [place] [phone] Faustino Sharif MD [address] [place] [address] Scheduling Allergies No known active allergiesdocumented as [...] encounter Miscellaneous Notes * Telephone Encounter - Temi Navarro RN - 06/11/2023 3:26 PM EDT Patient called to schedule mediport placement. Driller Portable gone for the day and will return on . Driller Portable made aware to call patient when she returns * Telephone Encounter - Nani Rios OSA - 06/11/2023 11:08 AM EDT Called patient to schedule Mediport Insertion. No answer. Left message for patient to return call. documented in this encounter Plan of Treatment Upcoming Encounters Date Type Department Care Team (Late st Contact Info) Description 06/15/2023 8:00 AM EDT Imaging Radiology [facility] [address] [place] [address] 06/15/2023 8:30 AM EDT Imaging Radiology [address] [place] [address] Health Maintenance Due Date Last Done Comments [...] filedocumented as of this encounter Care Teams Quality Auditor Relationship Specialty Start Date End Date Charlene York CRNP [address] [place] [address] PCP - General Nurse Practitioner 03/11/23 documented as of this encounter
--- OUTSIDE RECORDS SUMMARY | 2023-07-21 02:19 | External Medical Summary | Summary of Care ---
Author Name Unknown Organization [facility] Address [address] [facility] [place] [address] Phone [phone] Care Team Providers Care Project Management Analyst Name Role Phone Charlene York Primary Care Provider Encounter Details Date Type Department Care Team (Late st Contact Info) Description 06/11/2023 Orders Only Hematology/Oncology Nilda Parra [place] [address] [facility] [place] [phone] Faustino Sharif MD [address] [facility] [place] [address] Allergies No known active allergiesdocumented as of [...] Description 06/15/2023 8:00 AM EDT Imaging Radiology [address] [place] [address] 06/15/2023 8:30 AM EDT Imaging Radiology [facility] [address] [place] [place] [address] Health Maintenance Due Date Last Done Comments [...] filedocumented as of this encounter Care Teams Project Management Analyst Relationship Specialty Start Date End Date Charlene York CRNP [address] [place] [address] PCP - General Nurse Practitioner 03/11/23 documented as of this encounter
--- OUTSIDE RECORDS SUMMARY | 2023-07-21 02:19 | External Medical Summary | Summary of Care ---
Author Name Unknown Organization [facility] Address [address] [facility] [place] [address] Phone [phone] Care Team Providers Care Digital Account Manager Name Role Phone Charlene York Primary Care Provider Reason for Visit * Reason Onset Date Comments Precert Future 06/11/2023 [facility] Encounter Details Date Type Department Care Team (Late st Contact Info) Description 06/11/2023 Telephone Hematology/Oncology Nilda Parra [place] [address] [place] [phone] Faustino Sharif MD [address] [place] [address] Precert Future ([facility]) Allergies No known active allergiesdocumented as [...] Description 06/15/2023 8:00 AM EDT Imaging Radiology [address] [place] [address] 06/15/2023 8:30 AM EDT Imaging Radiology [address] [place] [address] Scheduled Orders Name Type Priority Associated Diagnoses [...] Blood Test 06/16/1996 Sigmoidoscopy 06/16/1996 COVID-19 Vaccine (4 - season) 2023 02/03/2023, 06/04/2020, 05/03/2020 Influenza [...] diseases documented in this encounter Care Teams Digital Account Manager Relationship Specialty Start Date End Date Charlene York CRNP [address] [place] [address] PCP - General Nurse Practitioner 03/11/23 documented as of this encounter
--- OUTSIDE RECORDS SUMMARY | 2023-07-21 02:19 | External Medical Summary | Summary of Care ---
Author Name Unknown Organization [facility] Address [address] [facility] [place] [address] Phone [phone] Care Team Providers Care Manager Front Name Role Phone Charlene York Primary Care Provider Reason for Visit * Reason Onset Date Comments Precert Future 06/11/2023 [facility] Encounter Details Date Type Department Care Team (Late st Contact Info) Description 06/11/2023 Telephone Hematology/Oncology Nilda Parra [place] [address] [place] [phone] Faustino Sharif MD [address] [place] [address] Precert Future ([facility]) Allergies No [...] mid morning Asked for me to call [phone] * Telephone Encounter - Addi Jean RN - 06/11/2023 1:09 PM EDT Scheduling- patient needs scheduled for chemo teaching, please call her to schedule a nurse visit for this. Thank you. * Telephone Encounter - Addi Jena RN - 06/11/2023 10:16 AM EDT Orders [...] Description 06/15/2023 8:00 AM EDT Imaging Radiology [address] [place] [address] 06/15/2023 8:30 AM EDT Imaging Radiology [facility] [address] [place] [address] Scheduled Orders Name Type Priority Associated Diagnoses [...] diseases documented in this encounter Care Teams Manager Front Relationship Specialty Start Date End Date Charlene York CRNP [address] [place] [address] PCP - General Nurse Practitioner 03/11/23 documented as of this encounter
--- OUTSIDE RECORDS SUMMARY | 2023-07-21 02:19 | External Medical Summary | Summary of Care ---
Author Name Unknown Organization [facility] Address [address] [place] [place] [place] [address] Phone [phone] Care Team Providers Care Leadership Development Manager Name Role Phone Charlene York Primary Care Provider Reason for Visit * Reason Onset Date Comments Scheduling 06/11/2023 Encounter Details Date Type Department Care Team (Late st Contact Info) Description 06/11/2023 Telephone Hematology/Oncology [facility] [place] [address] [place] [phone] Faustino Sharif MD [address] [place] [address] Scheduling Allergies No known active allergiesdocumented as [...] Description 06/18/2023 11:00 AM EDT Imaging Radiology [facility] 1st Floor, [place] 132 [facility] [place] [address] 06/18/2023 11:30 AM EDT Imaging Radiology [address] [place] [address] Health Maintenance Due Date Last Done Comments [...] filedocumented as of this encounter Care Teams Leadership Development Manager Relationship Specialty Start Date End Date Charlene York CRNP [address] [place] [address] PCP - General Nurse Practitioner 03/11/23 documented as of this encounter
--- OUTSIDE RECORDS SUMMARY | 2023-07-21 02:19 | External Medical Summary | Summary of Care ---
Author Name Unknown Organization [facility] Address [address] [facility] [place] [address] Phone [phone] Care Team Providers Care Concession Cashier Name Role Phone Charlene York Primary Care Provider Reason for Visit * Reason Onset Date Comments Medication Refill 06/11/2023 Encounter Details Date Type Department Care Team (Late st Contact Info) Description 06/11/2023 Refill Hematology/Oncology [facility] [place] [address] [facility] [place] [address] Faustino Sharif MD [address] [place] [address] Allergies No known active allergiesdocumented as of [...] Encounter - Addi Jean RN - 06/11/2023 10:24 AM EDT error documented in this encounter Plan of Treatment Upcoming Encounters Date Type Department Care Team (Late st Contact Info) Description 06/18/2023 11:00 AM EDT Imaging Radiology [facility] 1st [facility] 132 [facility] [place] [address] 06/18/2023 11:30 AM EDT Imaging Radiology [facility] 132 [facility] [place] [address] Health Maintenance Due Date Last Done Comments [...] filedocumented as of this encounter Care Teams Concession Cashier Relationship Specialty Start Date End Date Charlene York CRNP [address] [place] [address] PCP - General Nurse Practitioner 03/11/23 documented as of this encounter
--- OUTSIDE RECORDS SUMMARY | 2023-07-21 02:19 | External Medical Summary | Summary of Care ---
Author Name Unknown Organization [facility] Address [address] [facility] [place] [address] Phone [phone] Care Team Providers Care Financial Developer Name Role Phone Charlene York Primary Care Provider Encounter Details Date Type Department Care Team (Late st Contact Info) Description 06/13/2023 Orders Only PATIENT PORTAL DO NOT DELETE THIS DEPT USED BY [place] [address] Allergies No known active allergiesdocumented as of this encounter (statuses as of 06/13/2023) Medications Medication Sig Dispensed Refills Start Date [...] as of this encounter (statuses as of 06/13/2023) Active Problems Problem Noted Date Diagnosed Date [...] as of this encounter (statuses as of 06/13/2023) Resolved Problems Problem Noted Date Diagnosed Date Resolved Date Impacted cerumen 03/11/2023 Otitis media 03/11/2023 documented as of this encounter (statuses as of 06/13/2023) Immunizations Name Administration Dates Next Due SARS-COV-2 [...] Description 06/15/2023 8:00 AM EDT Imaging Radiology [address] [place] [address] 06/15/2023 8:30 AM EDT Imaging Radiology [facility] [address] [place] [address] 06/16/2023 1:30 PM EDT Cardiac Studies Cardiac Studies [address] [place] [address] 06/18/2023 8:15 AM EDT Office Visit General Surgery, [facility] [address] [place] [place] [address] Sol Sol MD [address] [place] [address] Health Maintenance Due Date Last Done Comments [...] filedocumented as of this encounter Care Teams Financial Developer Relationship Specialty Start Date End Date Charlene York CRNP [address] [place] [address] PCP - General Nurse Practitioner 03/11/23 documented as of this encounter
--- OUTSIDE RECORDS SUMMARY | 2023-07-21 02:19 | External Medical Summary | Summary of Care ---
Author Name Unknown Organization [facility] Address [address] [place] [address] Phone [phone] Care Team Providers Care Theatrical Performer Name Role Phone Charlene York Primary Care Provider Reason for Visit * Reason Onset Date Comments Encounter Created in Error 06/12/2023 Encounter Details Date Type Department Care Team (Late st Contact Info) Description 06/12/2023 Telephone Family Practice [facility] [address] [place] [address] Charlene York CRNP [address] [place] [address] Encounter Created in Error Allergies No known active allergiesdocumented as of [...] encounter Miscellaneous Notes * Telephone Encounter - Cristina Turner OSA - 06/12/2023 9:39 AM EDT Error documented in this encounter Plan of Treatment Upcoming Encounters Date Type Department Care Team (Late st Contact Info) Description 06/15/2023 8:00 AM EDT Imaging Radiology [facility] 1st Floor, [place] 132 [facility] [place] [address] 06/15/2023 8:30 AM EDT Imaging Radiology [facility] [address] [facility] [place] [address] Health Maintenance Due Date Last Done Comments [...] filedocumented as of this encounter Care Teams Theatrical Performer Relationship Specialty Start Date End Date Charlene York CRNP [address] [place] [address] PCP - General Nurse Practitioner 03/11/23 documented as of this encounter
--- OUTSIDE RECORDS SUMMARY | 2023-07-21 02:19 | External Medical Summary | Summary of Care ---
Author Name Unknown Organization [facility] Address [address] [facility] [address] Phone [phone] Care Team Providers Care Statistician Applied Name Role Phone Charlene Yrok Primary Care Provider Reason for Referral * Precert (Within 10 days (routine)) - Authorized Specialty Diagnoses / Procedures Referred By Contac t Referred To Contact Radiology Diagnoses Malignant neoplasm of upper-outer quadrant of right breast in female, estrogen receptor positive (HCC) Procedures IR VENOUS ACCESS MEDIPORT Faustino Sharif MD [address] [place] [address] Referral ID Status Reason Start Date Expiration Date V isits Requested Visits Authorized [id number] Authorized 06/18/2023 999 999 * Precert (Within 10 days (routine)) - Authorized Specialty Diagnoses / Procedures Referred By Contac t Referred To Contact Cardiac Studies Diagnoses Malignant neoplasm of upper-outer quadrant of right breast in female, estrogen receptor positive (HCC) Encounter for long-term (current) drug use Procedures ECHO, COMPLETE (2D), TRANS-THORACIC Faustino Sharif MD [address] [place] [address] Referral ID Status Reason Start Date Expiration Date V isits Requested Visits Authorized [id number] Authorized Precert 06/11/2023 999 999 Reason for Visit * Reason Comments Follow Up Review scan results Encounter Details Date Type Department Care Team (Late st Contact Info) Description 06/11/2023 8:15 AM EDT Office Visit Hematology/Oncology [place] [facility] [place] [address] [facility] [place] [address] Faustino Sharif MD 200 [facility] [place] [address] Malignant neoplasm of upper-outer quadrant of right breast in female, estrogen receptor positive (HCC)*; Encounter for long-term (current) drug use Allergies No known active allergiesdocumented as of [...] Date Smoking Tobacco: Never Smokeless Tobacco: Never Tobacco Cessation:Counseling Given: Not Answered Alcohol Use Standard Drinks/Week Comments No 0 [...] Sign Reading Time Taken Comments Blood Pressure 110/66 06/11/2023 7:57 AM EDT Pulse 74 06/11/2023 7:57 AM EDT Temperature 36.4 C (97.5 F) 06/11/2023 7:57 AM ED T Respiratory Rate - - Oxygen Saturation 98% 06/11/2023 7:57 AM EDT Inhaled Oxygen Concentration - - Weight 64.4 kg (142 lb) 06/11/2023 7:57 AM EDT Height - - Body Mass Index 22.92 05/14/2023 11:46 AM EDT documented in this encounter Progress Notes * Faustino Sharif MD - 06/11/2023 8:15 AM EDT Hematology/Oncology Outpatient Consult Note [facility] [address] [place] [address] SUE RIVAS MR # [id number] :1950 72 years old female, Date of consultation:05/13/2023 DIAGNOSIS: Right breast cancer, ER and [place] positive, HER2 Myrna positive. Based on MRI of the breast, It is about 2.2 cm, also has 3 satellite lesions in the right breast Left breast lesion, she is going for biopsy from that. CURRENT TREATMENT: Planning for neoadjuvant chemotherapy TC P. She is at high-risk for febrile neutropenia, she will receive prophylactic Pegfilgrastim to preventfebrile neutropenia. DIAGNOSTIC WORKUP: She felt small lump in the right breast without in the local symptoms, she had diagnostic bilateralbreast mammogram and right breast sonogram done on 04/15/2023: - Right breast showed 1.6 x 1.1 x 1.3 cm hypoechoic mass at 12/1 o'clock position. Left breast unremarkable. - Right axilla --> Morphologically normal lymph nodes noted. Biopsy from the right breast mass done on 04/29/2023: - Invasive carcinoma, grade 3. No special type - Her2/myrna--> Positive by IHC and FISH - ER moderately positive in 50% million cells, [place] strongly positive in 90 was malignamt cells. No previous history of any kind of cancer diagnosis. CT SCAN OF CHEST, ABDOMEN AND PELVIS( 05/20/2023) Chest: 1. A small mass in the medial right upper breast. An additional smaller foci of enhancement medial to the mass. The breasts are otherwise not adequately evaluated with CT. 2. No enlarged thoracic lymph nodes. 3. Two small pulmonary nodules measuring up to 0.4 cm, nonspecific. Consider continued surveillance. Abdomen/pelvis: 1. No findings to suggest metastatic disease in the abdomen or pelvis. Bilateral breast MRI on 06/03/2023: Left: A 4 x 8.7 x 6.5 [...] satellite lesions. BI-RADS 6, known biopsy-proven carcinoma. OTHER IMPORTANT HISTORY: - rheumatoid arthritis for the last 20 years,She was treated with Enbrel for about 16 years, now for the last 2 years also, she is on Orencia, she is also on methotrexate, she has a very good response with the good symptom control. She follows up with [facility] in [place]. INTERVAL HISTORY: She has come the clinic for the f/up, she came to clinic by herself. She says that she is otherwise doing well, very mild muscular symptoms, she takes Mobic as needed, no cardiac or pulmonary symptoms, no nausea, vomiting, no new GI symptoms, ambulates well, good ECOGPS 0, no headache, no upper extremity edema, no leg edema, no thrombotic complications the past, current weight is around 142 which is stable. No headaches. 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 No current facility-administered medications for this visit. Family History Problem Relation Age of Onset [...] Other (lyme disease) Son with cardiac complications Social History Socioeconomic History Marital status: Spouse name: Not on file Number of children: Not on file Years of education: Not on file Highest education level: Not on file Occupational History Occupation: Retired from [employer] Tobacco Use Smoking status: Never Smokeless tobacco: Never Vaping Use Vaping Use: Never used Substance and Sexual Activity Alcohol use: No Drug use: Never Sexual activity: Not Currently Partners: Male Other Topics Concern Not on file Social History Narrative Lives in [place] with husbands No pets in the home Social Determinants of Health Financial Resource Strain: Not on file Food Insecurity: Not on file Transportation Needs: Not on file Physical Activity: Not on file Stress: Not on file Social Connections: Not on file Intimate Partner Violence: Not on file Housing Stability: Not on file On Exam: BP 110/66 (BP Site: Left Arm, BP Position: Sitting, BP Cuff Size: Regular) | Pulse 74 | Temp 36.4 C (97.5 F) (Tympanic) | Wt 64.4 kg (142 lb) | SpO2 98% | BMI 22.92 kg/m | BSA 1.73 m - Alert and oriented x3, well built woman, not in any distress. - HEENT: no icterus, no pallor, Throat: Normal. - Neck: No palpable cervical lymphadenopathy. - Chest: clear to auscultation. - Abdomen: soft, nontender, no hepatomegaly, no splenomegaly. - No focal neuro deficit. - Extremities: no finger clubbing, no leg edema. LABS: Blood workup done on 05/14/2023: - WBC 6200, H&H of 13.8/40.3, platelet count of 297,000 - BUN/Creat:16 says 0.8, calcium 10.1, normal LFT. IMAGING: As described above. ASSESSMENT AND PLAN: 72-year-old female, a case of right breast carcinoma, based on the ultrasound of the breast and mammogram, it is about 1.6 cm, no exit lymph camelia involvement on the imaging studies, no evidence of distant measures is on clinical examination, normal blood test results, normal LFT. T1c N0 M0, stage IA. - Hormonal positive - Her2/myrna--> Positive. I reviewed with her regarding the recent bilateral breast mammogram, she has larger right breast mass about 2.2 cm and there are at least 3 enhancing masses in the right breast, she also has a 8 mm non-mass enhancement in the left breast. She is going for biopsy of the left breast mass in the near future Because of HER2 positive about 2.2 cm mass, neoadjuvant chemotherapy can be considered, reviewed with regarding chemotherapy protocol with TCH P, treatment schedule side effect profile she is in agreement for that. She will need port for upcoming chemotherapy, she will need echocardiogram for baseline cardiac function checkup. E-prescribed Compazine Zofran for the symptomatic treatment nausea and vomiting. She will take Decadron as part of pre-chemotherapy ( e-prescribed) Planning for 6 cycles of TCH P and then she will have surgical intervention She has underlying rheumatoid arthritis, she is on methotrexate and Orencia, we reviewed drug drug interaction and no interaction or concerns noted and so she will continue both drugs while on treatment. Dr. Faustino Sharif Hem/Onc (This note was completed using the dictation program Fluency Direct. As such, there may be misspellings word substitutions, or other variations that should not change the essence of the clinical content of this encounter note. If there is need for further clarification, please direct questions to the provider listed above.) documented in this encounter Nursing Notes * Didi Blank MED ASSIST - 06/11/2023 7:59 AM EDT Patient identifed by name and birthdate Do you have any concerns about pain management for today's visit? No Living Will or Advance Directive for Health Care as noted on the problem list. [employer] is a way you can talk to your provider on line through e-mail. Would you like to sign up? I can activate it for you? ALREADY ACTIVE Filed Vitals: 06/11/23 0757 BP: 110/66 Pulse: 74 Temp: 36.4 C (97.5 F) TempSrc: Tympanic SpO2: 98% Weight: 64.4 kg (142 lb) Patient was instructed to not get up on the exam table/exam chair until directed and assisted by their provider; patient is to remain seated in the chair/ wheelchair/ exam table/ exam chair for fall prevention and safety reasons. Patient is aware to have assistance to step down off exam table/exam chair with personnel. Patient voiced full comprehension of instructions. documented in this encounter Plan of Treatment Upcoming Encounters Date Type Department Care Team (Late st Contact Info) Description 06/15/2023 8:00 AM EDT Imaging Radiology [facility] [address] [place] [address] 06/15/2023 8:30 AM EDT Imaging Radiology [address] [place] [address] Scheduled Orders Name Type Priority Associated Diagnoses Orde r Schedule ECHO, COMPLETE (2D), TRANS-THORACIC Echocardiology Routine Malignant neoplasm of upper-outer quadrant of right breast in female, estrogen receptor positive (HCC) Encounter for long-term (current) drug use Expected: 06/11/2023 (Approximate), Expires: 07/10/2025 IR VENOUS ACCESS MEDIPORT Medical Imaging Routine Malignant neoplasm of upper-outer quadrant of right breast in female, estrogen receptor positive (HCC) Expected: 06/18/2023, Expires: 07/10/2024 Health Maintenance Due Date Last Done Comments [...] estrogen receptor positive (HCC)- Primary Encounter for long-term (current) drug use Encounter for long-term (current) use of other medications documented in this encounter Care Teams Statistician Applied Relationship Specialty Start Date End Date Charlene York CRNP [address] [place] [address] PCP - General Nurse Practitioner 03/11/23 documented as of this encounter"
--- OUTSIDE RECORDS SUMMARY | 2023-07-21 02:19 | External Medical Summary | Summary of Care ---
Author Name Unknown Organization [facility] Address [address] [place] [address] Phone [phone] Care Team Providers Care Reinsurance Accountant Name Role Phone Charlene York Primary Care Provider Encounter Details Date Type Department Care Team (Late st Contact Info) Description 06/11/2023 Orders Only Hematology/Oncology Treatment, [place] [address] [place] [address] Faustino Sharif MD [address] [place] [address] Malignant neoplasm of upper-outer quadrant of right [...] Description 06/18/2023 11:00 AM EDT Imaging Radiology [facility] 1st [facility] 132 [facility] [place] [address] 06/18/2023 11:30 AM EDT Imaging Radiology [address] [place] [address] Scheduled Orders Name Type Priority Associated Diagnoses Orde r Schedule CBC WITH WBC DIFFERENTIAL Lab STAT Malignant neoplasm of upper-outer quadrant of right breast in female, estrogen receptor positive (HCC) Every 3 Weeks for 10 Occurrences starting 06/11/2023 until 06/10/2024 COMPREHENSIVE METABOLIC PANEL Lab STAT Malignant neoplasm of upper-outer quadrant of right breast in female, estrogen receptor positive (HCC) Every 3 Weeks for 10 Occurrences starting 06/11/2023 until 06/10/2024 Health Maintenance Due Date Last Done [...] medications documented in this encounter Care Teams Reinsurance Accountant Relationship Specialty Start Date End Date Charlene York CRNP [address] [place] [address] PCP - General Nurse Practitioner 03/11/23 documented as of this encounter
--- OUTSIDE RECORDS SUMMARY | 2023-07-21 02:19 | External Medical Summary | Summary of Care ---
Author Name Unknown Organization [facility] Address [address] [place] [address] Phone [phone] Care Team Providers Care Housetrailer Servicer Name Role Phone Charlene York Primary Care Provider Reason for Visit * Reason Onset Date Comments Fax 06/12/2023 [facility] patient. Encounter Details Date Type Department Care Team (Late st Contact Info) Description 06/12/2023 Telephone [facility]ematology[facility] [place] [address] [facility] [address] Services, Scheduling [address] [place] [address] Fax ([facility] patient./) Allergies No known active allergiesdocumented as of [...] encounter Miscellaneous Notes * Telephone Encounter - Anjelica Hammond LPN - 06/12/2023 3:56 PM EDT Faxed pathology reports from 04/29/2023 to attn: Kassie . * Telephone Encounter - Belia Arthur OSA - 06/12/2023 9:46 AM EDT Caller requesting the following information to be faxed: Name/Company of caller: Kassie lloyd/ Dr. Hall Information requested to be faxed: Breast Pathology report Fax number: [phone] Attention to Name/Company: Kassie lloyd/ Dr. Hall Any additional information?: needing katherine. documented in this encounter Plan of Treatment Upcoming Encounters Date Type Department Care Team (Late st Contact Info) Description 06/15/2023 8:00 AM EDT Imaging Radiology [address] [place] [address] 06/15/2023 8:30 AM EDT Imaging Radiology [facility] [address] [place] [address] 06/16/2023 1:30 PM EDT Cardiac Studies Cardiac Studies [address] [place] [address] 06/18/2023 8:15 AM EDT Office Visit General Surgery, [facility] [address] [place] [address] Sol Sol MD [address] [place] [address] Health Maintenance Due Date Last Done Comments [...] filedocumented as of this encounter Care Teams Housetrailer Servicer Relationship Specialty Start Date End Date Charlene York CRNP [address] [place] [address] PCP - General Nurse Practitioner 03/11/23 documented as of this encounter
--- OUTSIDE RECORDS SUMMARY | 2023-07-21 02:19 | External Medical Summary | Summary of Care ---
Author Name Unknown Organization [facility] Address [address] [place] [address] Phone [phone] Care Team Providers Care Social Human Services Assistants Name Role Phone Charlene York Primary Care Provider Reason for Referral * Evaluate & Treat - Unlimited Visits (Within 10 days (routine)) - Authorized Specialty Diagnoses / Procedures Referred By Annabelle martines Referred To Contact Plastic Surgery Diagnoses Malignant neoplasm of upper-inner quadrant of right breast in female, estrogen receptor positive (HCC) Sol Sol MD [address] [facility] [place] [address] Referral ID Status Reason Start Date Expiration Date Visits Requested Visits Authorized [id number] Authorized Specialty Services Required 06/10/2023 999 999 [...] Contact Info) Description 06/10/2023 Telephone General Surgery, [facility] [address] [place] [address] Sol Sol MD [address] [place] [address] Allergies No known active allergiesdocumented as of [...] encounter Miscellaneous Notes * Telephone Encounter - Mell Ferreira OSA - 06/12/2023 1:18 PM EDT Scheduled on 06/18/23. * Telephone Encounter - Mell Ferreira OSA - 06/12/2023 8:26 AM EDT Lmom to return call * Telephone Encounter - Tahmina Bonds OSA [...] York CRNP - 06/10/2023 10:10 AM EDT Mona. Dea, MSN, [facility] * Telephone Encounter - Sol Sol MD [...] Description 06/15/2023 8:00 AM EDT Imaging Radiology [address] 132 [facility] [place] [address] 06/15/2023 8:30 AM EDT Imaging Radiology [address] [place] [address] 06/16/2023 1:30 PM EDT Cardiac Studies Cardiac Studies [address] [place] [address] 06/18/2023 8:15 AM EDT Office Visit General Surgery, [facility] 132 [facility] [place] [address] Sol Sol MD 132 [facility] [place] [address] Scheduled Orders Name Type Priority Associated Diagnoses [...] (HCC) documented in this encounter Care Teams Social Human Services Assistants Relationship Specialty Start Date End Date Charlene York CRNP [address] [place] [address] PCP - General Nurse Practitioner 03/11/23 documented as of this encounter
--- OUTSIDE RECORDS SUMMARY | 2023-07-21 02:19 | External Medical Summary | Summary of Care ---
Author Name Unknown Organization [facility] Address [address] [facility] [place] [address] Phone [phone] Care Team Providers Care Asphalt Tamper Name Role Phone Charlene York Primary Care Provider Encounter Details Date Type Department Care Team (Late st Contact Info) Description 06/11/2023 Telephone Hematology/Oncology [place] 200 [facility] [place] [address] Faustino Sharif MD [address] [place] [address] Allergies No known active allergiesdocumented as of [...] Encounter - Magaly Medina OSA - 06/11/2023 1:19 PM EDT See tele enc that kerry put in * Telephone Encounter - Magaly Medina OSA - 06/11/2023 9:46 AM EDT Pt left without checking out Called pt and left message to call in and schedule these appts Sent message to - about port * Telephone Encounter - Magaly Medina OSA - 06/11/2023 9:46 AM EDT - Port - ECHO - Chemo education documented in this encounter Plan of Treatment Upcoming Encounters Date Type Department Care Team (Late st Contact Info) Description 06/15/2023 8:00 AM EDT Imaging Radiology [facility] [address] [place] [address] 06/15/2023 8:30 AM EDT Imaging Radiology [address] [place] [address] Health Maintenance Due Date Last Done Comments [...] filedocumented as of this encounter Care Teams Asphalt Tamper Relationship Specialty Start Date End Date Charlene York CRNP [address] [place] [address] PCP - General Nurse Practitioner 03/11/23 documented as of this encounter
--- OUTSIDE RECORDS SUMMARY | 2023-07-21 02:19 | External Medical Summary | Summary of Care ---
Author Name Unknown Organization [facility] Address [address] [facility] [place] [address] Phone [phone] Care Team Providers Care Hyperbaric Nurse Name Role Phone Charlene York Primary Care Provider Reason for Visit * Reason Onset Date Comments Precert Future 06/11/2023 [facility] Encounter Details Date Type Department Care Team (Late st Contact Info) Description 06/11/2023 Telephone Hematology/Oncology [place] [address] [place] [address] Faustino Sharif MD [address] [place] [address] Precert Future ([facility]) Allergies No [...] mid morning Asked for me to call [phone] * Telephone Encounter - Addi Jean RN [...] 8:00 AM EDT [facility] 132 [facility] [place] [address] 06/15/2023 8:30 AM EDT Imaging Radiology [facility] 132 [facility] [place] [address] Scheduled Orders Name Type Priority Associated Diagnoses [...] diseases documented in this encounter Care Teams Hyperbaric Nurse Relationship Specialty Start Date End Date Charlene York CRNP [address] [place] [address] PCP - General Nurse Practitioner 03/11/23 documented as of this encounter
--- OUTSIDE RECORDS SUMMARY | 2023-07-21 02:19 | External Medical Summary | Summary of Care ---
Author Name Unknown Organization [facility] Address [address] [place] [address] Phone [phone] Care Team Providers Care Regulatory Affairs Spec Name Role Phone Charlene York Primary Care Provider Reason for Visit * Reason Onset Date Comments Films 06/08/2023 Encounter Details Date Type Department Care Team (Late st Contact Info) Description 06/08/2023 Telephone Family Practice [facility] [address] [place] [address] Charlene York CRNP [address] [place] [address] Films Allergies No known active allergiesdocumented as of [...] encounter Miscellaneous Notes * Telephone Encounter - Bridgette Camargo OSA - 06/11/2023 2:45 PM EDT Breast Imaging Equipment Washer - reports patient has a 2nd opinion appointment tomorrow and will need to have the imaging on a disc for that appointment. Disc(s) prepared per request and delivered directly to patient's in the waiting area. Patient Right of Access form completed at time of pickup. * Telephone Encounter - Eugenio Daniels OSA - 06/10/2023 8:55 AM EDT Pt called in to check on status of this. Informed pt everything was sent out throw mail * Telephone Encounter - Bridgette Camargo OSA - 06/09/2023 12:50 PM EDT All imaging copied to disc. Disc and associated reports prepared and placed in Outgoing Mail addressed to: [facility] [address] [address] * Telephone Encounter - Andree Baca OSA - 06/08/2023 5:35 PM EDT Pt came to [facility] (I was the closer & there was a random release form sitting at the desk with no info on it other than a signature...) It says on the sheet it was for a disc but I managed to contact pt to touch base. Needs any & all imaging pertaining to her breast exams pushed through to [facility]. Also said they need a fax. I placed the release form in the [employer] mailbox. Address: [address] . Very pleasant lady, I told her that someone would send her a [employer] message or to let her know when documented in this encounter Plan of Treatment Upcoming Encounters Date Type Department Care Team (Late st Contact Info) Description 06/15/2023 8:00 AM EDT Imaging Radiology [facility] 1st [facility] [address] [place] [address] 06/15/2023 8:30 AM EDT Imaging Radiology [facility] [address] [place] [address] Health Maintenance Due Date Last Done Comments [...] filedocumented as of this encounter Care Teams Regulatory Affairs Spec Relationship Specialty Start Date End Date Charlene York CRNP [address] [place] [address] PCP - General Nurse Practitioner 03/11/23 documented as of this encounter
--- OUTSIDE RECORDS SUMMARY | 2023-07-21 02:19 | External Medical Summary | Summary of Care ---
Author Name Unknown Organization [facility] Address [address] [place] [address] Phone [phone] Care Team Providers Care Wildlife Photographer Name Role Phone Charlene York Primary Care Provider Reason for Referral * Evaluate & Treat - Unlimited Visits (Within 10 days (routine)) - Authorized Specialty Diagnoses / Procedures Referred By Annabelle martines Referred To Contact Plastic Surgery Diagnoses Malignant neoplasm of upper-inner quadrant of right breast in female, estrogen receptor positive (HCC) Sol Sol MD [address] [place] [address] Referral ID Status Reason Start Date Expiration Date Visits Requested Visits Authorized [id number] Authorized Specialty Services Required 06/10/2023 999 999 [...] Contact Info) Description 06/10/2023 Telephone General Surgery, [facility] [address] [place] [address] Sol Sol MD [address] [place] [address] Allergies No known active allergiesdocumented as of [...] 10:10 AM EDT Mona. Dea, MSN, [facility] * Telephone Encounter - Sol Sol MD [...] Description 06/15/2023 8:00 AM EDT Imaging Radiology [facility] [address] [place] [address] 06/15/2023 8:30 AM EDT Imaging Radiology [address] [place] [address] Scheduled Orders Name Type Priority Associated Diagnoses [...] (HCC) documented in this encounter Care Teams Wildlife Photographer Relationship Specialty Start Date End Date Charlene York CRNP [address] [place] [address] PCP - General Nurse Practitioner 03/11/23 documented as of this encounter
--- OUTSIDE RECORDS SUMMARY | 2023-07-21 02:19 | External Medical Summary | Summary of Care ---
Author Name Unknown Organization [facility] Address [address] [place] [address] Phone [phone] Care Team Providers Care Bottoming Room Supervisor Name Role Phone Charlene York Primary Care Provider Reason for Referral * Evaluate & Treat - Unlimited Visits (Within 10 days (routine)) - Authorized Specialty Diagnoses / Procedures Referred By Annabelle martines Referred To Contact Plastic Surgery Diagnoses Malignant neoplasm of upper-inner quadrant of right breast in female, estrogen receptor positive (HCC) Sol Sol MD [address] [place] [address] Referral ID Status Reason Start Date Expiration Date Visits Requested Visits Authorized [id number] Authorized Specialty Services Required 06/10/[phone] [...] Contact Info) Description 06/10/2023 Telephone General Surgery, [facility] [address] [place] [phone] Sol Sol MD [address] [place] [address] Allergies No known active allergiesdocumented as of [...] 10:10 AM EDT Noted. Dea, MSN, DIMITRIOS [facility] * Telephone Encounter - Sol Sol MD [...] Description 06/15/2023 8:00 AM EDT Imaging Radiology [facility] 1st [facility] [address] [place] [address] 06/15/2023 8:30 AM EDT Imaging Radiology [address] [address] Scheduled Orders Name Type Priority Associated Diagnoses [...] (HCC) documented in this encounter Care Teams Bottoming Room Supervisor Relationship Specialty Start Date End Date Charlene York CRNP [address] [place] [address] PCP - General Nurse Practitioner 03/11/23 documented as of this encounter
--- OUTSIDE RECORDS SUMMARY | 2023-07-21 02:20 | External Medical Summary | Summary of Care ---
Author Name Unknown Organization [facility] Address [address] [facility] [place] [address] Phone [phone] Care Team Providers Care Plant Protection Supervisor Name Role Phone Charlene York Primary Care Provider Encounter Details Date Type Department Care Team (Late st Contact Info) Description 06/11/2023 Telephone Hematology/Oncology Nilda Parra [place] 200 [facility] [place] [address] Faustino Shairf MD [address] [place] [address] Allergies No known active allergiesdocumented as of [...] Encounter - Magaly Medina OSA - 06/11/2023 9:47 AM EDT Scheduling: please contact pt to schedule IR VENOUS ACCESS MEDIPORT Status: Needs Scheduling Requested appt date: 06/18/2023 Authorizing: Faustino Sharif MD in HEM/ONC [facility] Referral: [id number] (Authorized) Expires: 07/10/2024 Priority: Routine Diagnosis: Malignant neoplasm of upper-outer quadrant of right breast in female, estrogen r... documented in this encounter Plan of Treatment Upcoming Encounters Date Type Department Care Team (Late st Contact Info) Description 06/18/2023 11:00 AM EDT Imaging Radiology [place] [address] [place] [address] 06/18/2023 11:30 AM EDT Imaging Radiology [address] [address] Health Maintenance Due Date Last Done Comments [...] filedocumented as of this encounter Care Teams Plant Protection Supervisor Relationship Specialty Start Date End Date Charlene York CRNP [address] [place] [address] PCP - General Nurse Practitioner 03/11/23 documented as of this encounter
--- OUTSIDE RECORDS SUMMARY | 2023-07-21 02:20 | External Medical Summary | Summary of Care ---
Author Name Unknown Organization [facility] Address [address] [place] [address] Phone [phone] Care Team Providers Care Rigging Slinger Name Role Phone Charlene York Primary Care Provider Reason for Referral * Evaluate & Treat - Unlimited Visits (Within 10 days (routine)) - Authorized Specialty Diagnoses / Procedures Referred By Annablele martines Referred To Contact Plastic Surgery Diagnoses Malignant neoplasm of upper-inner quadrant of right breast in female, estrogen receptor positive (HCC) Sol Sol MD [address] [place] [address] Referral ID Status Reason Start Date Expiration Date Visits Requested Visits Authorized [id number] Authorized Specialty Services Required 06/10/[phone] [...] Contact Info) Description 06/10/2023 Telephone General Surgery, [facility] [address] [place] [address] Sol Sol MD [address] [place] [address] Allergies No known active allergiesdocumented as of this encounter (statuses as of 06/10/2023) Medications Medication Sig Dispensed Refills Start Date [...] as of this encounter (statuses as of 06/10/2023) Active Problems Problem Noted Date Diagnosed Date SPINAL STENOSIS-LUMBAR 08/29/2004 ADVANCE DIRECTIVE INFORMATION 07/12/2004 Overview: Pt stated she will bring in a copy of her Living Will Arthritis, 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/09/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 Dea, MSN, DIMITRIOS [facility] * Telephone Encounter - Sol Sol MD [...] 06/11/2023 8:15 AM EDT Office Visit Hematology/Oncology Nilda Parra [place] 200 [facility] [place] [address] Faustino Sharif MD 200 [place] [address] Scheduled Orders Name Type Priority Associated Diagnoses [...] (HCC) documented in this encounter Care Teams Rigging Slinger Relationship Specialty Start Date End Date Charlene York CRNP [address] [place] [address] PCP - General Nurse Practitioner 03/11/23 documented as of this encounter
--- OUTSIDE RECORDS SUMMARY | 2023-07-21 02:20 | External Medical Summary | Summary of Care ---
Author Name Unknown Organization [facility] Address [address] [facility] [place] [address] Phone [phone] Care Team Providers Care Vocational Aide Name Role Phone Charlene York Primary Care Provider Encounter Details Date Type Department Care Team (Late st Contact Info) Description 06/11/2023 Telephone Hematology/Oncology Nilda Parra [place] 200 [facility] [place] [address] Faustino Sharif MD [address] [place] [address] Allergies No known active allergiesdocumented as of [...] and schedule these appts Sent message to g- about port * Telephone Encounter - Magaly Medina OSA - 06/11/2023 9:46 AM EDT - Port - ECHO - Chemo education documented in this encounter Plan of Treatment Upcoming Encounters Date Type Department Care Team (Late st Contact Info) Description 06/18/2023 11:00 AM EDT Imaging Radiology [facility] [address] [place] [address] 06/18/2023 11:30 AM EDT Imaging Radiology [address] [place] [address] Health Maintenance Due Date Last Done Comments [...] filedocumented as of this encounter Care Teams Vocational Aide Relationship Specialty Start Date End Date Charlene York CRNP [address] [place] [address] PCP - General Nurse Practitioner 03/11/23 documented as of this encounter
--- OUTSIDE RECORDS SUMMARY | 2023-07-21 02:20 | External Medical Summary | Summary of Care ---
Author Name Unknown Organization [facility] Address [address] [facility] [place] [address] Phone [phone] Care Team Providers Care Seeing Eye Dog Teacher Name Role Phone Charlene York Primary Care Provider Encounter Details Date Type Department Care Team (Late st Contact Info) Description 06/11/2023 Telephone Hematology/Oncology Nilda Parra [place] 200 [facility] [place] [address] Faustino Sharif MD [address] [place] [address] Allergies No known active allergiesdocumented as of [...] Description 06/18/2023 11:00 AM EDT Imaging Radiology [facility] [address] [place] [address] 06/18/2023 11:30 AM EDT Imaging Radiology [address] [place] [address] Health Maintenance Due Date Last Done Comments [...] filedocumented as of this encounter Care Teams Seeing Eye Dog Teacher Relationship Specialty Start Date End Date Charlene York CRNP [address] [place] [address] PCP - General Nurse Practitioner 03/11/23 documented as of this encounter
--- OUTSIDE RECORDS SUMMARY | 2023-07-21 02:20 | External Medical Summary | Summary of Care ---
Author Name Unknown Organization [facility] Address [address] [place] [address] Phone [phone] Care Team Providers Care Java Flex Developer Name Role Phone Charlene York Primary Care Provider Reason for Visit * Reason Onset Date Comments Films 06/08/2023 Encounter Details Date Type Department Care Team (Late st Contact Info) Description 06/08/2023 Telephone Family Practice [facility] [address] [place] [address] [...] encounter Miscellaneous Notes * Telephone Encounter - Eugenio Daniels OSA - 06/10/2023 8:55 AM EDT Pt called in to check on status of this. Informed pt everything was sent out throw mail * Telephone Encounter - Bridgette Camargo OSA - 06/09/2023 12:50 PM EDT All imaging copied to disc. Disc and associated reports prepared and placed in Outgoing Mail addressed to: [facility] [address] [place] [address] * Telephone Encounter - Andree Baca OSA - 06/08/2023 5:35 PM EDT Pt came to [facility] (I was the closer & there was a random release form sitting at the desk with no info on it other than a signature...) It says on the sheet it was for a disc but I managed to contact pt to touch base. Needs any & all imaging pertaining to her breast exams pushed through to [facility]. Also said they need a fax. I placed the release form in the [employer] mailbox. Address: [address] [place] [address] Abby [place] . Very pleasant lady, I told her that someone would send her a [facility] message or to let her know when documented in this encounter Plan of Treatment Upcoming Encounters Date Type Department Care Team (Late st Contact Info) Description 06/11/2023 8:15 AM EDT Office Visit Hematology/Oncology Nilda Parra [place] 200 [facility] [place] [address] Faustino Sharif MD 200 [facility] [place] [address] Health Maintenance Due Date Last Done Comments [...] filedocumented as of this encounter Care Teams Java Flex Developer Relationship Specialty Start Date End Date Charlene York CRNP [address] [place] [address] PCP - General Nurse Practitioner 03/11/23 documented as of this encounter
--- OUTSIDE RECORDS SUMMARY | 2023-07-21 02:20 | External Medical Summary | Summary of Care ---
Author Name Unknown Organization [facility] Address [address] [place] [address] Phone [phone] Care Team Providers Care Technical Communicator Name Role Phone Charlene York Primary Care Provider Reason for Visit * Reason Onset Date Comments Appointment 06/11/2023 Encounter Details Date Type Department Care Team (Late st Contact Info) Description 06/11/2023 Telephone Family Practice [facility] [address] [place] [address] Charlene York CRNP [address] [place] [address] Appointment Allergies No known active allergiesdocumented as of [...] Telephone Encounter - Cris Resendiz OSA - 06/11/2023 9:47 AM EDT Rita'd 06/17 * Telephone Encounter - Lauren Martins RDMS - 06/11/2023 9:00 AM EDT Patient will be scheduled for ultrasound first. If biopsy is warranted, will be scheduled at that time. Thank you! * Telephone Encounter - Elizabeth Alejandre OSA - 06/11/2023 8:40 AM EDT Pt has an order for an ultrasound guided breast Bx in her chart documented in this encounter Plan of Treatment Upcoming Encounters Date Type Department Care Team (Late st Contact Info) Description 06/18/2023 11:00 AM EDT Imaging Radiology [facility] [address] [place] [address] 06/18/2023 11:30 AM EDT Imaging Radiology [address] [place] [address] Health Maintenance Due Date Last Done Comments [...] filedocumented as of this encounter Care Teams Technical Communicator Relationship Specialty Start Date End Date Charlene York CRNP [address] [place] [address] PCP - General Nurse Practitioner 03/11/23 documented as of this encounter
--- OUTSIDE RECORDS SUMMARY | 2023-07-21 02:20 | External Medical Summary | Summary of Care ---
Author Name Unknown Organization [facility] Address [address] [place] [address] Phone [phone] Care Team Providers Care Apprentice Stylist Name Role Phone Charlene York Primary Care Provider Reason for Referral * Evaluate & Treat - Unlimited Visits (Within 10 days (routine)) - Authorized Specialty Diagnoses / Procedures Referred By Annabelle martines Referred To Contact Plastic Surgery Diagnoses Malignant neoplasm of upper-inner quadrant of right breast in female, estrogen receptor positive (HCC) Sol Sol MD [address] [place] [address] Referral ID Status Reason Start Date Expiration Date Visits Requested Visits Authorized [id number] Authorized Specialty Services Required 06/10/[phone] [...] Contact Info) Description 06/10/2023 Telephone General Surgery, [facility] [address] [place] [address] Sol Sol MD [address] [place] [address] Allergies No known active allergiesdocumented as of [...] encounter Miscellaneous Notes * Telephone Encounter - Sol Sol MD [...] 06/11/2023 8:15 AM EDT Office Visit Hematology/Oncology [facility] [place] 200 [facility] [place] [address] Faustino Sharif MD 200 [facility] [place] [address] Scheduled Orders Name Type Priority Associated Diagnoses [...] (HCC) documented in this encounter Care Teams Apprentice Stylist Relationship Specialty Start Date End Date Charlene York CRNP [address] [place] [address] PCP - General Nurse Practitioner 03/11/23 documented as of this encounter
--- OUTSIDE RECORDS SUMMARY | 2023-07-21 02:20 | External Medical Summary | Summary of Care ---
Author Name Unknown Organization [facility] Address [address] [place] [address] Phone [phone] Care Team Providers Care Organization Development Consultant Name Role Phone Charlene York Primary Care Provider Reason for Referral * Evaluate & Treat - Unlimited Visits (Within 10 days (routine)) - Authorized Specialty Diagnoses / Procedures Referred By Annabelle martines Referred To Contact Plastic Surgery Diagnoses Malignant neoplasm of upper-inner quadrant of right breast in female, estrogen receptor positive (HCC) Sol Sol MD [address] [place] [address] Referral ID Status Reason Start Date Expiration Date Visits Requested Visits Authorized [id number] Authorized Specialty Services Required 06/10/2023 999 999 [...] Contact Info) Description 06/10/2023 Telephone General Surgery, [facility] [address] [place] [address] Sol Slo MD [address] [place] [address] Allergies No known active allergiesdocumented as of [...] encounter Miscellaneous Notes * Telephone Encounter - Charlene York CRNP - 06/10/2023 10:10 AM EDT Noted. Dea, MSN, DIMITRIOS [facility] * Telephone Encounter - Sol Sol MD [...] AM EDT Office Visit Hematology/Oncology Nilda Parra [place] 200 [facility] [place] [address] Faustino Sharif MD 200 [facility] [place], [place] [address] Scheduled Orders Name Type Priority Associated Diagnoses [...] (HCC) documented in this encounter Care Teams Organization Development Consultant Relationship Specialty Start Date End Date Charlene York CRNP [address] [place] [address] PCP - General Nurse Practitioner 03/11/23 documented as of this encounter
--- OUTSIDE RECORDS SUMMARY | 2023-07-21 02:20 | External Medical Summary | Summary of Care ---
Author Name Unknown Organization [facility] Address [address] [place] [address] Phone [phone] Care Team Providers Care On Air Talent Name Role Phone Charlene York Primary Care Provider Reason for Referral * Evaluate & Treat - Unlimited Visits (Within 10 days (routine)) - Authorized Specialty Diagnoses / Procedures Referred By Annabelle martines Referred To Contact Plastic Surgery Diagnoses Malignant neoplasm of upper-inner quadrant of right breast in female, estrogen receptor positive (HCC) Sol Sol MD [address] [place] [address] Referral ID Status Reason Start Date Expiration Date Visits Requested Visits Authorized [id number] Authorized Specialty Services Required 06/10/2023 999 999 [...] Contact Info) Description 06/10/2023 Telephone General Surgery, [facility] [address] [place] [id number] Sol Sol MD [address] [place] [address] Allergies No known active allergiesdocumented as of [...] 10:10 AM EDT Noted. Dea, MSN, DIMITRIOS [facility] * Telephone Encounter - Sol Sol MD [...] Description 06/18/2023 11:00 AM EDT Imaging Radiology [address] [address] 06/18/2023 11:30 AM EDT Imaging Radiology [address] [address] Scheduled Orders Name Type Priority Associated Diagnoses [...] (HCC) documented in this encounter Care Teams On Air Talent Relationship Specialty Start Date End Date Charlene York CRNP [address] [place] [address] PCP - General Nurse Practitioner 03/11/23 documented as of this encounter
--- OUTSIDE RECORDS SUMMARY | 2023-07-21 02:21 | External Medical Summary ---
Author Name Unknown Address Unknown Organization [facility] [place] [address] [place] [address] Laboratory Report Ordering Provider Test Date Status SALO WALLIS 05/14/2023 12:55:59 Final Observation Date Value Abnormality Reference (Units ) Status BUN 05/14/2023 12:55:59 16 6-20 (mg/dL) Final Creatinine 05/14/2023 12:55:59 0.8 0.5-1.0 (mg/dL) Final Glomerular filtration rate/1.73 sq M.predicted [Volume Rate/Area] in Serum, Plasma or Blood by Creatinine-based formula (CKD-EPI) 05/14/2023 12:55:59 78 >=60 (mL/min) Final eGFR is calculated based on the CKD-EPI 2020 equation Sodium 05/14/2023 12:55:59 140 135-146 (m mol/L) Final Potassium 05/14/2023 12:55:59 4.1 3.5-5.1 (m mol/L) Final Cl 05/14/2023 12:55:59 102 98-107 (mm ol/L) Final CO2 05/14/2023 12:55:59 30 22-32 (mmo l/L) Final Anion gap 05/14/2023 12:55:59 8 7-15 (mmol /L) Final Glucose 05/14/2023 12:55:59 102 70-120 (mg /dL) Final Albumin 05/14/2023 12:55:59 4.2 3.8-5.0 (g /dL) Final AST (Aspartate aminotransferase) 05/14/2023 12:55:59 30 10-35 (U/L) Final Alk Phos 05/14/2023 12:55:59 75 35-130 (U/ L) Final Bilirubin, Total 05/14/2023 12:55:59 0.3 <=1 .2 (mg/dL) Final Calcium 05/14/2023 12:55:59 10.1 8.4-10.2 ( mg/dL) Final Protein 05/14/2023 12:55:59 7.5 6.0-8.3 (g /dL) Final ALT (Alanine aminotransferase) 05/14/2023 12:55:59 18 10-35 (U/L) Final Performing Location [facility] [address] [place] [address]
--- OUTSIDE RECORDS SUMMARY | 2023-07-21 02:21 | External Medical Summary ---
Author Name Unknown Address Unknown Organization K09[facility] [place] [address] Laboratory Report Ordering Provider Test Date Status SALO WALLIS 05/14/2023 12:55:59 Final Observation Date Value Abnormality Reference (Units ) Status WBC, Total 05/14/2023 12:55:59 6.32 4.00-10.8 0 (K/uL) Final RBC 05/14/2023 12:55:59 4.63 3.85-5.15 (M/uL) Final Hemoglobin 05/14/2023 12:55:59 13.8 12.0-15.3 (g/dL) Final HCT 05/14/2023 12:55:59 43.3 36.0-45.2 (%) Final MCV 05/14/2023 12:55:59 93.5 81.5-97.5 (fL) Final MCH 05/14/2023 12:55:59 29.8 27.0-34.0 (pg) Final MCHC 05/14/2023 12:55:59 31.9 32.0-36.0 (g/dL) Final RDW 05/14/2023 12:55:59 13.2 11.5-15.5 (%) Final Platelets 05/14/2023 12:55:59 297 140-400 (K /uL) Final MPV 05/14/2023 12:55:59 9.7 6.6-11.1 ( fL) Final Performing Location [facility] [place] [address]
--- OUTSIDE RECORDS SUMMARY | 2023-07-21 02:21 | External Medical Summary | Summary of Care ---
Author Name Unknown Organization [facility] Address [address] [place] [address] Phone [phone] Care Team Providers Care Cadet Deck Name Role Phone Charlene York Primary Care Provider Reason for Referral * Precert (Within 10 days (routine)) - Authorized Specialty Diagnoses / Procedures Referred By Annabelle martines Referred To Contact Radiology Diagnoses Malignant neoplasm of upper-outer quadrant of right breast in female, estrogen receptor positive (HCC) Procedures CT CHEST/ABDOMEN/PELVIS WITH IV CONTRAST WITH ORAL CONTRAST Faustino Sharif MD [address] [facility] [place] [address] Referral ID Status Reason Start Date Expiration Date V isits Requested Visits Authorized [id number] Authorized 05/14/2023 999 999 Reason for Visit * Reason Comments NEW PATIENT * Evaluate & Treat - Unlimited Visits (Within 3 days (urgent)) - Authorized Specialty Diagnoses / Procedures Referred By Annabelle martines Referred To Contact Hematology/Oncology / Hematology Oncology Diagnoses Invasive carcinoma of breast (HCC) Charlene York CRNP [address] [place] [address] Referral ID Status Reason Start Date Expiration Date Visits Requested Visits Authorized [id number] Authorized Specialty Services Required 05/05/2023 999 999 Encounter Details Date Type Department Care Team (Late st Contact Info) Description 05/14/2023 12:15 PM EDT Office Visit Hematology/Oncology [place] [address] [facility] [place] [phone] Faustino Sharif MD 200 [place] [address] Malignant neoplasm of upper-outer quadrant of right breast in female, estrogen receptor positive (HCC)* Allergies No known active allergiesdocumented as of this encounter (statuses as of 05/14/2023) Medications Medication Sig Dispensed Refills Start Date [...] as of this encounter (statuses as of 05/14/2023) Active Problems Problem Noted Date Diagnosed Date SPINAL STENOSIS-LUMBAR 08/29/2004 ADVANCE DIRECTIVE INFORMATION 07/12/2004 Overview: Pt stated she will bring in a copy of her Living Will Arthritis, 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/09/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 05/09/2004 documented as of this encounter (statuses as of 05/14/2023) Resolved Problems Problem Noted Date Diagnosed Date Resolved Date Impacted cerumen 03/11/2023 Otitis media 03/11/2023 documented as of this encounter (statuses as of 05/14/2023) Immunizations Name Administration Dates Next Due SARS-COV-2 [...] Sign Reading Time Taken Comments Blood Pressure 143/79 05/14/2023 11:46 AM EDT Pulse 77 05/14/2023 11:46 AM EDT Temperature 36.3 C (97.4 F) 05/14/2023 1 1:46 AM EDT Respiratory Rate 18 05/14/2023 11:4 6 AM EDT Oxygen Saturation 98% 05/14/2023 11: 46 AM EDT Inhaled Oxygen Concentration - - Weight 64.3 kg (141 lb 11.2 oz) 024 11:46 AM EDT Height 167.6 cm (5' 6") 05/14/2023 11:4 6 AM EDT Body Mass Index 22.87 05/14/2023 11:46 AM EDT documented in this encounter Progress Notes * Faustino Sharif MD - 05/14/2023 12:15 PM EDT Hematology/Oncology Outpatient Consult Note Kavon Munguia Hanna [address] [facility] [place] [address] SUE RIVAS MR # [id number] :1950 72 years old female, REASON FOR CONSULTATION: Consultation for Sue Rivas requested by Charlene York CRNP for evaluation and discussion of treatment options for breast cancer. Date of consultation:05/13/2023 DIAGNOSIS: CURRENT TREATMENT: PREVIOUS TREATMENT: DIAGNOSTIC WORKUP: She felt small lump in [...] ER moderately positive in 50% million cells, MO strongly positive in 90 was malignamt cells. No previous history of any kind of cancer diagnosis. OTHER IMPORTANT HISTORY: - rheumatoid arthritis for the last 20 years,She was treated with Enbrel for about 16 years, now for the last 2 years also, she is on Orencia, she is also on methotrexate, she has a very good response with the good symptom control. She follows up with application support administrator in [place]. INTERVAL HISTORY: She has come the clinic for the initial initial, she came to clinic by herself. She says that she is otherwise doing well, very mild muscular symptoms, she takes Mobic as needed, no cardiac or pulmonary symptoms, no nausea, vomiting, no new GI symptoms, ambulates well, good ECOGPS 0, no headache, no upper extremity edema, no leg edema, no thrombotic complications the past, current weight is around 141 which is stable. REVIEW OF SYSTEMS: GENERAL: No change in weight, no weakness, no fatigue, no fever, sweats or chills. SKIN: No skin rash, no bruising. HEAD: No new headache, no dizziness. EYES: No recent change in the vision, no diplopia, EARS: No earache no tinnitus, NOSE: No epistaxis, No nasal discharge or stuffiness, MOUTH: No sores, no dysphagia, no hoarseness of voice, NECK: No lumps, No swelling in thyroid area. No stiffness. PULMONARY: No cough, No shortness of breath, no hemoptysis, no chest pain, No wheezing. CARDIOVASCULAR: No anginal chest pain, no PND, no orthopnea. No palpitation, no leg edema. No syncope. GASTROINTESTINAL: No abdominal pain, no nausea or vomiting. No diarrhea, No constipation. No blood in stool or black tarry stools. No abdominal distention. UROLOGIC: No burning urination. No hematuria. MUSCULOSKELETAL: joint pain related to underlying dermatitis but it is very well under control. HEMATOLOGIC: No anemia, no bleeding disorder, No bruising. NEUROLOGIC: No seizures, no focal weakness, no speech difficulty, No memory disturbances. No tingling or numbness of the extremities. PSYCHIATRIC: No depression. No anxiety. No psychosis. 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 LIGATE/CUT OVIDUCT(S) AT SURGERY MO ARTHROSCOPY KNEE DIAGNOSTIC W/WO SYNOVIAL BX SPX Right 2005 RIGHT SHOULDER rc [facility]pair [place] ARTHRP KNE CONDYLE&PLATU MEDIAL&LAT COMPARTMENTS Left 2019 [facility] ortho US GUIDED BREAST BIOPSY RIGHT [...] on file Occupational History Occupation: Retired from [employer]ing Tobacco Use Smoking status: Never Smokeless tobacco: Never Vaping Use Vaping Use: Never used Substance and Sexual Activity Alcohol use: No Drug use: Never Sexual activity: Not Currently Partners: Male Other Topics Concern Not on file Social History Narrative Lives in [place] with husbands No pets in the home Social Determinants of Health Financial Resource Strain: Not on file Food Insecurity: Not on file Transportation Needs: Not on file Physical Activity: Not on file Stress: Not on file Social Connections: Not on file Intimate Partner Violence: Not on file Housing Stability: Not on file On Exam: BP 143/79 (BP Site: Left Arm, BP Position: Sitting, BP Cuff Size: Regular) | Pulse 77 | Temp 36.3 C (97.4 F) (Tympanic) | Resp 18 | Ht 1.676 m (5' 6") | Wt 64.3 kg (141 lb 11.2 oz) | SpO2 98% | BMI 22.87 kg/m | BSA 1.73 m On exam: - Alert and oriented x3, well built [...] Positive. I reviewed with her regarding the diagnostic workup done, reviewed the information outlined on NCCNwebsite, we discussed the role of adjuvant chemotherapy and neoadjuvant chemotherapy. Based on small primary tumor and no exit improvement, I would consider for surgical option first followed by systemic chemotherapy. She is having bilateral breast MRI done on 06/02/2022. Will wait for the MRI result, if she has no further increasing size or any other suspicious findings, we should proceed with surgery otherwise will proceed with neoadjuvant Herceptin based chemotherapy. I would like to get CT scan of the chest, abdomen pelvis for initial staging. I reviewed with her regarding different protocol that can be considered mainly TCH, TCH P and to the protocol in the form of Taxol and Herceptin. She also has underlying rheumatoid arthritis and we have to be careful about drug-drug interaction. I am planning to I'm planning to see her back after the breast MRI. Thanks for the consult. Faustino Sharif MD Hem/Onc documented in this encounter Nursing Notes * Bridgtete Hussein MED ASSIST - 05/14/2023 11:47 AM EDT Patient identifed by name and birthdate Do you have any concerns about pain management for today's visit? No Living Will or Advance Directive for Health Care as noted on the problem list. [facility] is a way you can talk to your provider on line through e-mail. Would you like to sign up? I can activate it for you? ALREADY ACTIVE Filed Vitals: 05/14/23 1146 BP: 143/79 Pulse: 77 Resp: 18 Temp: 36.3 C (97.4 F) TempSrc: Tympanic SpO2: 98% Weight: 64.3 kg (141 lb 11.2 oz) Height: 1.676 m (5' 6") Patient was instructed to not get up [...] Care Team (Late st Contact Info) Description 05/20/2023 2:30 PM EDT Imaging Radiology [address] [facility] [place] [address] 06/03/2023 8:00 AM EDT Imaging Radiology [address] [place] [address] 06/11/2023 8:15 AM EDT [facility] [address] [facility] [place] [phone] Faustino Sharif MD [address] [place] [address] Scheduled Orders Name Type Priority Associated Diagnoses Orde r Schedule CT CHEST/ABDOMEN/PELVIS WITH IV CONTRAST WITH ORAL CONTRAST Medical Imaging Routine Malignant neoplasm of upper-outer quadrant of right breast in female, estrogen receptor positive (HCC) Expected: 05/14/2023, Expires: 05/13/2024 Health Maintenance Due Date Last Done Comments Pneumococcal Vaccine: 65+ Years (1 of 2 - PCV) [birth year]16/1956 Depression Screening 1963 Hepatitis C Screening 06/16/1969 Zoster Vaccines (1 of 2) 06/16/1970 Cologuard 06/16/1996 Colonoscopy 06/16/1996 Colorectal Cancer Screening 06/16/1996 Fecal Occult Blood Test 06/16/1996 Sigmoidoscopy 06/16/1996 Influenza Vaccine (FLU shot) (#1) 2022 12/15/2013, 03/23/2013, 01/20/2006, Additional history exists COVID-19 Vaccine ( season) 2023 02/03/2023, 06/04/2020, 05/03/2020 Mammogram 04/15/2024 04/15/2023 DXA Scan 07/26/2027 07/25/2020 [...] Date/Time Associated Diagnosis Comments DIFFERENTIAL, AUTOMATED STAT 05/14/2023 12:55 PM EDT Malignant neoplasm of upper-outer quadrant of right breast in female, estrogen receptor positive (HCC) COMPREHENSIVE METABOLIC PANEL STAT 05/14/2023 12:55 PM EDT Malignant neoplasm of upper-outer quadrant of right breast in female, estrogen receptor positive (HCC) CBC STAT 05/14/2023 12:55 PM EDT Malignant neoplasm of upper-outer quadrant of right breast in female, estrogen receptor positive (HCC) CBC STAT 05/14/2023 12:55 PM EDT Malignant neoplasm of upper-outer quadrant of right breast in female, estrogen receptor positive (HCC) documented in this encounter Results * DIFFERENTIAL, AUTOMATED (05/14/2023 12:55 PM EDT) WBC 6.32 4.00 - 10.80 K/uL 05/14/2023 1:44 PM EDT [facility] 56-02 Neutrophils % 65.0 40.0 - 75.0 % 05/14/2023 1:44 PM EDT [facility] 56-02 Lymphocytes % 26.1 18.0 - 42.0 % 05/14/2023 1:44 PM EDT [facility] 56-02 Monocytes % 7.0 1.0 - 11.0 % 05/14/2023 1:44 PM EDT [facility] 56-02 Eosinophils % 1.4 0.0 - 6.0 % 05/14/2023 1:44 PM EDT [facility] 56-02 Basophils % 0.5 0.0 - 2.0 % 05/14/2023 1:44 PM EDT [facility] 56-02 Absolute Neutrophils 4.11 1.80 - 7.70 K/uL 05/14/2023 1:44 PM EDT [facility] 56 Absolute Lymphocytes 1.65 1.00 - 4.80 K/ul 05/14/2023 1:44 PM EDT [facility] 56 Absolute Monocytes 0.44 0.00 - 1.10 K/uL 05/14/2023 1:44 PM EDT [facility] 56- Absolute Eosinophils 0.09 0.00 - 0.70 K/uL 05/14/2023 1:44 PM EDT [facility] 56 Absolute Basophils 0.03 0.00 - 0.20 K/uL 05/14/2023 1:44 PM EDT [facility] 56 Blood Venous blood specimen / Unknown Venipuncture / Unknown 05/14/2023 12:55 PM EDT 05/14/2023 12:55 PM EDT Faustino Sharif MD LAB BLOOD ORDERABLES [facility] [address] [place] [address] * CBC (05/14/2023 12:55 PM EDT) WBC 6.32 4.00 - 10.80 K/uL 05/14/2023 1:44 PM EDT [facility] 56 RBC 4.63 3.85 - 5.15 M/uL 05/14/2023 1:44 PM EDT [facility] 56 HGB 13.8 12.0 - 15.3 g/dL 05/14/2023 1:44 PM EDT [facility] 56 HCT 43.3 36.0 - 45.2 % 05/14/2023 1:44 PM EDT [facility] 56- MCV 93.5 81.5 - 97.5 fL 05/14/2023 1:44 PM EDT [facility] 56 MCH 29.8 27.0 - 34.0 pg 05/14/2023 1:44 PM EDT [facility] 56 MCHC 31.9 32.0 - 36.0 g/dL 05/14/2023 1:44 PM EDT [facility] 56-02 RDW 13.2 11.5 - 15.5 % 05/14/2023 1:44 PM EDT [facility] 56-02 PLT 297 140 - 400 K/uL 05/14/2023 1:44 PM EDT [facility] 56-02 MPV 9.7 6.6 - 11.1 fL 05/14/2023 1:44 PM EDT [facility] 56-02 Blood Venous blood specimen / Unknown Venipuncture / Unknown 05/14/2023 12:55 PM EDT 05/14/2023 12:55 PM EDT Faustino Sharif MD LAB BLOOD ORDERABLES [facility] [address] [place] [address] * COMPREHENSIVE METABOLIC PANEL (05/14/2023 12:55 PM EDT) BUN 16 6 - 20 mg/dL 05/14/2023 2:50 PM EDT [facility] [place] 57-10 Creatinine 0.8 0.5 - 1.0 mg/dL 05/14/2023 2:50 PM EDT [facility] [place] 57-10 Estimated Glomerular Filtration Rate 78 >=60 mL/min 05/14/2023 2:50 PM EDT [facility] [place] 57-10 Comment:eGFR is calculated b ased on the CKD-EPI 2020 equation Sodium 140 135 - 146 mmol/L 05/14/2023 2:50 PM EDT [facility] [place] 57-10 Potassium 4.1 3.5 - 5.1 mmol/L 05/14/2023 2:50 PM EDT [facility] [place] 57-10 Chloride 102 98 - 107 mmol/L 05/14/2023 2:50 PM EDT [facility] [place] 57-10 CO2 30 22 - 32 mmol/L 05/14/2023 2:50 PM EDT [facility] [place] 57-10 Anion Gap 8 7 - 15 mmol/L 05/14/2023 2:50 PM EDT [facility] [place] 57-10 Glucose 102 70 - 120 mg/dL 05/14/2023 2:50 PM EDT [facility] [place] 57-10 Albumin 4.2 3.8 - 5.0 g/dL 05/14/2023 2:50 PM EDT [facility] [place] 57-10 AST 30 10 - 35 U/L 05/14/2023 2:50 PM EDT [facility] [place] 57-10 Alkaline Phosphatase 75 35 - 130 U/L 05/14/2023 2:50 PM EDT [facility] [place] 57-10 Bilirubin, Total 0.3 <=1.2 mg/dL 05/14/2023 2:50 PM EDT [facility] [place] 57-10 Calcium 10.1 8.4 - 10.2 mg/dL 05/14/2023 2:50 PM EDT [facility] [place] 57-10 Protein 7.5 6.0 - 8.3 g/dL 05/14/2023 2:50 PM EDT [facility] [place] 57-10 ALT 18 10 - 35 U/L 05/14/2023 2:50 PM EDT [facility] [place] 57-10 Blood Venous blood specimen / Unknown Venipuncture / Unknown 05/14/2023 12:55 PM EDT 05/14/2023 12:55 PM EDT Faustino Sharif MD LAB BLOOD ORDERABLES [facility] [place] 57-10 [address] [place] [address] documented in this encounter Visit Diagnoses Diagnosis Malignant neoplasm of upper-outer quadrant of right breast in female, estrogen receptor positive (HCC)- Primary documented in this encounter Care Teams Cadet Deck Relationship Specialty Start Date End Date Charlene York CRNP [address] [place] [address] PCP - General Nurse Practitioner 03/11/23 documented as of this encounter
--- OUTSIDE RECORDS SUMMARY | 2023-07-21 02:21 | External Medical Summary ---
Author Name Unknown Address Unknown Organization K[facility] [place] [address] Laboratory Report Ordering Provider Test Date Status SALO WALLIS 05/14/2023 12:55:59 Final Observation Date Value Abnormality Reference (Units ) Status SYNC LEUKOCYTES IN BLOOD BY AUTOMATED COUNT 05/14/2023 12:55:59 6.32 4.00-10.80 (K/uL) Final Segs 05/14/2023 12:55:59 65.0 40.0-75.0 (%) Final Lymphs % 05/14/2023 12:55:59 26.1 18.0-42.0 (%) Final Monos 05/14/2023 12:55:59 7.0 1.0-11.0 (%) Final Eosinophils 05/14/2023 12:55:59 1.4 0.0-6.0 (%) Final Basos 05/14/2023 12:55:59 0.5 0.0-2.0 (%) Final Absolute Segs 05/14/2023 12:55:59 4.11 1.80-7.70 (K/uL) Final Lymphs, absolute 05/14/2023 12:55:59 1.65 1.00-4.80 (K/ul) Final Monos, Abs 05/14/2023 12:55:59 0.44 0.00-1.10 (K/uL) Final Eos, Abs 05/14/2023 12:55:59 0.09 0.00-0.70 (K/uL) Final Basos, Abs 05/14/2023 12:55:59 0.03 0.00-0.20 (K/uL) Final Performing Location [facility] [place] [address]
--- OUTSIDE RECORDS SUMMARY | 2023-07-21 02:21 | External Medical Summary | Summary of Care ---
Author Name Unknown Organization [facility] Address [address] [place] [address] Phone [phone] Care Team Providers Care Hr Clerk Name Role Phone Charlene York Primary Care Provider Reason for Visit * Reason Onset Date Comments Test Results 05/05/2023 Breast bx Encounter Details Date Type Department Care Team (Late st Contact Info) Description 05/05/2023 Telephone Family Practice [facility] [address] [place] [address] [facility] [place] [address] Test Results (Breast bx) Allergies No known active allergiesdocumented as of this encounter (statuses as of 05/05/2023) Medications Medication Sig Dispensed Refills Start Date [...] as of this encounter (statuses as of 05/05/2023) Active Problems Problem Noted Date Diagnosed Date SPINAL STENOSIS-LUMBAR 08/29/2004 ADVANCE DIRECTIVE INFORMATION 07/12/2004 Overview: Pt stated she will bring in a copy of her Living Will Arthritis, 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/09/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 An adddendum will be done to the imaging report of the same date to reflect recommendation. See pathology report for details. documented in this encounter Plan of Treatment Health Maintenance Due Date Last Done Comments [...] filedocumented as of this encounter Care Teams Hr Clerk Relationship Specialty Start Date End Date Charlene York CRNP [address] [place] [address] PCP - General Nurse Practitioner 03/11/23 documented as of this encounter
--- OUTSIDE RECORDS SUMMARY | 2023-07-21 02:21 | External Medical Summary | Summary of Care ---
Author Name Unknown Organization [facility] Address [address] [place] [address] Phone [phone] Care Team Providers Care Insurance Job Titles Name Role Phone Charlene York Primary Care Provider Reason for Visit * Reason Onset Date Comments Films 06/08/2023 Encounter Details Date Type Department Care Team (Late st Contact Info) Description 06/08/2023 Telephone Family Practice [facility] [address] [place] [address] Charlene York CRNP [address] [place] [address] Films Allergies No known active allergiesdocumented as of this encounter (statuses as of 06/09/2023) Medications Medication Sig Dispensed Refills Start Date [...] as of this encounter (statuses as of 06/09/2023) Active Problems Problem Noted Date Diagnosed Date SPINAL STENOSIS-LUMBAR 08/29/2004 ADVANCE DIRECTIVE INFORMATION 07/12/2004 Overview: Pt stated she will bring in a copy of her Living Will Arthritis, 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/09/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 05/09/2004 documented as of this encounter (statuses as of 06/09/2023) Resolved Problems Problem Noted Date Diagnosed Date Resolved Date Impacted cerumen 03/11/2023 Otitis media 03/11/2023 documented as of this encounter (statuses as of 06/09/2023) Immunizations Name Administration Dates Next Due SARS-COV-2 [...] and placed in Outgoing Mail addressed to: [facility] [address] [place] [id number] * Telephone Encounter - Andree Baca OSA [...] to her breast exams pushed through to [facility]. Also said they need a fax. I placed the release form in the [facility] [employer] mailbox. Address: [address] [place] . Very pleasant lady, I told her that someone would send her a [employer] message or to let her know when documented in this encounter Plan of Treatment Upcoming Encounters Date Type Department Care Team (Late st Contact Info) Description 06/11/2023 8:15 AM EDT Office Visit Hematology/Oncology Nilda Parra [place] [address] [place] [address] Faustino Sharif MD [address] [place] [address] Health Maintenance Due Date Last Done Comments [...] filedocumented as of this encounter Care Teams Insurance Job Titles Relationship Specialty Start Date End Date Charlene York CRNP [address] [place] [address] PCP - General Nurse Practitioner 03/11/23 documented as of this encounter
--- OUTSIDE RECORDS SUMMARY | 2023-07-21 02:21 | External Medical Summary | Summary of Care ---
Author Name Unknown Organization [facility] Address [address] [place] [address] Phone [phone] Care Team Providers Care Verifying Specialist Name Role Phone Charlene Vigil Primary Care Provider Reason for Referral * Evaluate & Treat - Unlimited Visits (Within 3 days (urgent)) - Authorized Specialty Diagnoses / Procedures Referred By Annabelle martines Referred To Contact General Surgery Diagnoses Invasive carcinoma of breast (HCC) Charlene Vigil CRNP [address] [place] [address] Referral ID Status Reason Start Date Expiration Date Visits Requested Visits Authorized [id number] Authorized Specialty Services Required 05/05/[phone] Question Answer Referral Priority Within 3 days (urgent) Where should this appointment be scheduled? [facility] What condition is the patient being seen for? Surgical Oncology Comments INVASIVE CARCINOMA OF BREAST * Evaluate & Treat - Unlimited Visits (Within 3 days (urgent)) - Authorized Specialty Diagnoses / Procedures Referred By Annabelle martines Referred To Contact Hematology/Oncology / Hematology Oncology Diagnoses Invasive carcinoma of breast (HCC) Charlene Vigil CRNP [address] [place] [address] Referral ID Status Reason Start Date Expiration Date Visits Requested Visits Authorized [id number] Authorized Specialty Services Required 05/05/2023 999 999 Question Answer Referral Priority Within 3 days (urgent) Where should this appointment be scheduled? [facility] Reason for Referral Malignant Oncology (Solid Organ Cancer) Comments Invasive carcinoma of breast Reason for Visit * Reason Onset Date Comments Test Results 05/05/2023 Breast bx Encounter Details Date Type Department Care Team (Late st Contact Info) Description 05/05/2023 Telephone Family Practice [facility] [address] [place] [address] Charlene Vigil CRNP [address] [place] [address] Test Results (Breast bx) Allergies No known [...] encounter Miscellaneous Notes * Telephone Encounter - Claudy Fry OSA - 05/05/2023 11:12 AM EDT Pt called and scheduled surgery referral. Hem/onc scheduling - Please contact pt to schedule urgent 3 day referral * Addendum Note - Charlene Vigil CRNP - 05/05/2023 10:56 AM EDTAddended by: CHARLENE VIGIL on: 05/05/2023 10:56 AM Modules accepted: Orders * Telephone Encounter - Charlene Vigil CRNP - 05/05/2023 10:54 AM EDT Reviewed biopsy showing invasive carcinoma. New diagnosis. . Agreeable to oncology and surgery. Please schedule referrals katherine. Dea, MSN, DIMITRIOS [facility] * Telephone Encounter - Cris Resendiz OSA [...] Care Team (Late st Contact Info) Description 05/07/2023 9:15 AM EDT Office Visit General Surgery, [facility] [address] [place] [address] Sol Sol MD [address] [place] [address] Scheduled Referrals Name Type Priority Associated Diagnoses Orde r Schedule HEMATOLOGY/ONCOLOGY REFERRAL OP Referral Within 3 days (urgent) Invasive carcinoma of breast (HCC) Ordered: 05/05/2023 SURGERY REFERRAL OP Referral Within 3 day s (urgent) Invasive carcinoma of breast (HCC) Ordered: 05/05/2023 Health Maintenance Due Date Last Done Comments [...] as of this encounter Visit Diagnoses Diagnosis Invasive carcinoma of breast (HCC)- Primary documented in this encounter Care Teams Verifying Specialist Relationship Specialty Start Date End Date Charlene Vigil CRNP [address] [place] [address] PCP - General Nurse Practitioner 03/11/23 documented as of this encounter
--- OUTSIDE RECORDS SUMMARY | 2023-07-21 02:21 | External Medical Summary | Summary of Care ---
Author Name Unknown Organization [facility] Address [address] [facility] [place] [address] Phone [phone] Care Team Providers Care Canvas Cutter Hand Name Role Phone Charlene York Primary Care Provider Reason for Visit * Reason Onset Date Comments Test Results 04/15/2023 Encounter Details Date Type Department Care Team (Late st Contact Info) Description 04/15/2023 Telephone Family Practice [facility] [address] [place] [address] Charlene York CRNP [address] [place] [address] Test Results Allergies No known active allergiesdocumented as of this encounter (statuses as of 04/16/2023) Medications Medication Sig Dispensed Refills Start Date [...] as of this encounter (statuses as of 04/16/2023) Active Problems Problem Noted Date Diagnosed Date SPINAL STENOSIS-LUMBAR 08/29/2004 ADVANCE DIRECTIVE INFORMATION 07/12/2004 Overview: Pt stated she will bring in a copy of her Living Will Arthritis, 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/09/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 Order placed. Please review and sign if acceptable. Thank you * Telephone Encounter - Fransisco Murillo RN - 04/16/2023 8:59 AM EST Called, left message for patient to return call to the dedicated nurse call center. Please see Charlene's previous message. * Telephone Encounter - Charlene York CRNP - 04/15/2023 4:06 PM EST Please call patient- Mammogram is abnormal and breast center is recommend biopsy. The report says that she was notified of recommendation for biopsy. I just wanted to be sure she was aware and agreeable to biopsy. Dea, MSN, DIMITRIOS [facility] Medicine documented in this encounter Plan of Treatment Upcoming Encounters Date Type Department Care Team (Late st Contact Info) Description 04/29/2023 11:30 AM EST Imaging Radiology [facility] [address] [facility] [place] [address] 04/29/2023 12:00 PM EST Imaging Radiology [address] [place] [address] Scheduled Orders Name Type Priority Associated Diagnoses Orde r Schedule US GUIDED BREAST BIOPSY RIGHT Medical Imaging Routine Abnormal ultrasound of breast Expected: 04/16/2023, Expires: 05/14/2024 Health Maintenance Due Date Last Done Comments DXA Scan 1950 Pneumococcal Vaccine: 65+ Years (1 of 2 - PCV) 06/16/1957 Depression Screening 1963 Hepatitis C Screening 06/16/1969 Zoster Vaccines (1 of 2) 06/16/1970 Cologuard 06/16/1996 Colonoscopy 06/16/1996 Colorectal Cancer Screening 06/16/1996 Fecal Occult Blood Test 06/16/1996 Sigmoidoscopy 06/16/1996 Influenza Vaccine (FLU shot) (#1) 2022 12/15/2013, 03/23/2013, 01/20/2006, Additional history exists COVID-19 Vaccine ( season) 2023 02/03/2023, 06/04/2020, 05/03/2020 Mammogram 04/15/2024 04/15/2023 Lipid Panel 03/11/2028 03/11/2023 DTaP,Tdap,and Td Vaccines [...] of this encounter Visit Diagnoses Diagnosis Abnormal ultrasound of breast- Primary Other (abnormal) findings on radiological examination of breast documented in this encounter Care Teams Canvas Cutter Hand Relationship Specialty Start Date End Date Charlene York CRNP [address] [place] [address] PCP - General Nurse Practitioner 03/11/23 documented as of this encounter
--- OUTSIDE RECORDS SUMMARY | 2023-07-21 02:21 | External Medical Summary | Summary of Care ---
Author Name Unknown Organization [facility] Address [address] [facility] [place] [address] Phone [phone] Care Team Providers Care Quality And Reliability Engineer Name Role Phone Charlene York Primary Care Provider Encounter Details Date Type Department Care Team (Late st Contact Info) Description 05/14/2023 Telephone Hematology/Oncology [facility] [place] [address] [facility] [place] [address] Faustino Sharif MD [address] [place] [address] Allergies No known active allergiesdocumented as of [...] Telephone Encounter - Magaly Medina OSA - 05/14/2023 12:53 PM EDT Pt is scheduled for CT on 05/19 Pt is aware of prep and has no questions at this time documented in this encounter Plan of Treatment Upcoming Encounters Date Type Department Care Team (Late st Contact Info) Description 05/14/2023 1:20 PM EDT Laboratory Laboratory [facility] [place] [address] [place] [phone] Garth [facility] [place] [address] [place] [address] Arrived 05/20/2023 2:30 PM EDT Imaging Radiology [address], [address] [place] [address] 06/03/2023 8:00 AM EDT Imaging Radiology [address] [place] [address] 06/11/2023 8:15 AM EDT Office Visit Hematology/Oncology [facility] [address] [place] [id number] Faustino Sharif MD [address] [place] [address] Health Maintenance Due Date Last Done Comments [...] as of this encounter Care Teams Quality And Reliability Engineer Relationship Specialty Start Date End Date Charlene York CRNP [address] [place] [address] PCP - General Nurse Practitioner 03/11/23 documented as of this encounter
--- OUTSIDE RECORDS SUMMARY | 2023-07-21 02:21 | External Medical Summary | Summary of Care ---
Author Name Unknown Organization [facility] Address [address] [place] [address] Phone [phone] Care Team Providers Care Clinical Studies Specialist Name Role Phone Charlene Vigil Primary Care Provider Reason for Referral * Evaluate & Treat - Unlimited Visits (Within 3 days (urgent)) - Authorized Specialty Diagnoses / Procedures Referred By Annabelle martines Referred To Contact General Surgery Diagnoses Invasive carcinoma of breast (HCC) Charlene Vigil CRNP [address] [place] [address] Referral ID Status Reason Start Date Expiration Date Visits Requested Visits Authorized [id number] Authorized Specialty Services Required 05/05/2023 999 999 [...] breast (HCC) Charlene Vigil CRNP [address] [place] [address] Referral ID Status Reason Start Date Expiration Date Visits Requested Visits Authorized [id number] Authorized Specialty Services Required 05/05/2023 999 999 [...] Contact Info) Description 05/05/2023 Telephone Family Practice [facility] [address] [place] [address] Charlene Vigil CRNP [address] [place] [address] Test Results (Breast bx) Allergies No known [...] Telephone Encounter - Pilar Viera RN - 05/05/2023 12:32 PM EDT Surgery appt 05/07/23. Scheduling: Dr Sharif has new patient appt 05/14/23. Please offer this to patient * Telephone Encounter - Claudy Fry OSA [...] surgery. Please schedule referrals katherine. Dea, MSN, MASTER MOTORCYCLE TECHNICIAN [facility] * Telephone Encounter - Cris Resendiz OSA [...] 9:15 AM EDT Office Visit General Surgery, [facility] [address] [place] [address] Sol Sol MD [address] [place] [address] Scheduled Referrals Name Type Priority Associated Diagnoses [...] 01/20/2006, Additional history exists COVID-19 Vaccine ( - season) 2023 02/03/2023, 06/04/2020, 05/03/2020 Mammogram 04/15/2024 [...] Primary documented in this encounter Care Teams Clinical Studies Specialist Relationship Specialty Start Date End Date Charlene Vigil CRNP [address] [place] [address] PCP - General Nurse Practitioner 03/11/23 documented as of this encounter
--- OUTSIDE RECORDS SUMMARY | 2023-07-21 02:21 | External Medical Summary | Summary of Care ---
Author Name Unknown Organization [facility] Address [address] [place] [address] Phone [phone] Care Team Providers Care Stamp Analyst Name Role Phone Charlene Vigil Primary Care Provider Reason for Referral * Evaluate & Treat - Unlimited Visits (Within 3 days (urgent)) - Authorized Specialty Diagnoses / Procedures Referred By Annabelle martines Referred To Contact General Surgery Diagnoses Invasive carcinoma of breast (HCC) Charlene Vigil CRNP [address] [place] [address] Referral ID Status Reason Start Date Expiration Date Visits Requested Visits Authorized [id number] Authorized Specialty Services Required 05/05/[phone] [...] breast (HCC) Charlene Vigil CRNP [address] [place] [address] Referral ID Status Reason Start Date Expiration Date Visits Requested Visits Authorized [id number] Authorized Specialty Services Required 05/05/2023 999 999 [...] Contact Info) Description 05/05/2023 Telephone Family Practice [facility] [address] [place] [address] Charlene Vigil CRNP [address] [place] [address] Test Results (Breast bx) Allergies No known [...] encounter Miscellaneous Notes * Addendum Note - Charlene Vigil CRNP - 05/05/2023 10:56 AM EDTAddended by: CHARLENE VIGIL on: 05/05/2023 10:56 AM Modules accepted: Orders * Telephone Encounter - Charlene Vigil CRNP - 05/05/2023 10:54 AM EDT Reviewed biopsy showing invasive carcinoma. New diagnosis. . Agreeable to oncology and surgery. Please schedule referrals katherine. Dea, MSN, DIMITRIOS [facility] * Telephone Encounter - Cris Resendiz OSA - 05/05/2023 10:10 AM EDT Please be aware patient's 04/29/23 ultrasound guided breast biopsy results are in. An adddendum will be done to the imaging report of the same date to reflect recommendation. See pathology report for details. documented in this encounter Plan of Treatment Scheduled Referrals Name Type Priority Associated Diagnoses [...] Primary documented in this encounter Care Teams Stamp Analyst Relationship Specialty Start Date End Date Charlene Vigil CRNP [address] [place] [address] PCP - General Nurse Practitioner 03/11/23 documented as of this encounter
--- OUTSIDE RECORDS SUMMARY | 2023-07-21 02:21 | External Medical Summary | Summary of Care ---
Author Name Unknown Organization [facility] Address [address] [facility] [place] [address] Phone [phone] Care Team Providers Care Planimeter Operator Name Role Phone Charlene York Primary Care Provider Reason for Visit * Reason Onset Date Comments Test Results Imaging Study 06/03/2023 CT Encounter Details Date Type Department Care Team (Late st Contact Info) Description 06/03/2023 Telephone Hematology/Oncology [facility] [place] [address] [facility] [address] Tatiana Grullon CRNP [address] [place] [address] Test Results Imaging Study (CT) Allergies No known active allergiesdocumented as of this encounter (statuses as of 06/03/2023) Medications Medication Sig Dispensed Refills Start Date [...] as of this encounter (statuses as of 06/03/2023) Active Problems Problem Noted Date Diagnosed Date SPINAL STENOSIS-LUMBAR 08/29/2004 ADVANCE DIRECTIVE INFORMATION 07/12/2004 Overview: Pt stated she will bring in a copy of her Living Will Arthritis, 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/09/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 * Telephone Encounter - Anjelica Hammond LPN - 06/03/2023 11:46 AM EDT ----- Message from DIMITRIOS Flores sent at 06/03/2023 11:06 AM EDT ----- Patient scheduled for scan review with Dr. Sharif 06/11/23. documented in this encounter Plan of Treatment Upcoming Encounters Date Type Department Care Team (Zachariah rodriguez Contact Info) Description 06/11/2023 8:15 AM EDT Office Visit Hematology/Oncology [facility]ilda [facility] [place] [address] [facility] [place] [address] Faustino Sharif MD [address] [facility] [place] [address] Health Maintenance Due Date Last Done Comments [...] filedocumented as of this encounter Care Teams Planimeter Operator Relationship Specialty Start Date End Date Charlene York CRNP [address] [place] [address] PCP - General Nurse Practitioner 03/11/23 documented as of this encounter
--- OUTSIDE RECORDS SUMMARY | 2023-07-21 02:21 | External Medical Summary | Summary of Care ---
Author Name Unknown Organization [facility] Address [address] [place] [address] Phone [phone] Care Team Providers Care Mechanical Maintenance Name Role Phone Charlene Vigil Primary Care Provider Reason for Referral * Evaluate & Treat - Unlimited Visits (Within 3 days (urgent)) - Authorized Specialty Diagnoses / Procedures Referred By Annabelle martines Referred To Contact General Surgery Diagnoses Invasive carcinoma of breast (HCC) Charlene Vigil CRNP [address] [place] [address] Referral ID Status Reason Start Date Expiration Date Visits Requested Visits Authorized [id number] Authorized Specialty Services Required 05/05/2023 999 999 [...] breast (HCC) Charlene Vigil CRNP [address] [place] [address] Referral ID Status Reason Start Date Expiration Date Visits Requested Visits Authorized [id number] Authorized Specialty Services Required 05/05/2023 999 999 [...] Contact Info) Description 05/05/2023 Telephone Family Practice [facility] [address] [place] [address] Charlene Vigil CRNP [address] [place] [address] Test Results (Breast bx) Allergies No known [...] encounter Miscellaneous Notes * Telephone Encounter - Didi Blank MED ASSIST - 05/05/2023 12:46 PM EDT Called and spoke to patient and she is scheduled to see on 05/14/23. * Telephone Encounter - Pilar Viera RN [...] and surgery. Please schedule referrals katherine. Dea, KUNAL, DIMITRIOS [facility] * Telephone Encounter - Cris Resendiz OSA [...] 9:15 AM EDT Office Visit General Surgery, [facility] [address] [place] [address] Sol Sol MD [address] [facility] [place] [address] 05/14/2023 12:15 PM EDT Office Visit Hematology/Oncology [facility] [address] [facility] [place] [id number] Faustino Sharif MD [address] [facility] [place] [address] Scheduled Referrals Name Type Priority Associated Diagnoses [...] Primary documented in this encounter Care Teams Mechanical Maintenance Relationship Specialty Start Date End Date Charlene Vigil CRNP [address] [place] [address] PCP - General Nurse Practitioner 03/11/23 documented as of this encounter
--- OUTSIDE RECORDS SUMMARY | 2023-07-21 02:21 | External Medical Summary | Summary of Care ---
Author Name Unknown Organization [facility] Address [address] [place] [address] Phone [phone] Care Team Providers Care Pyrometer Temperature Regulator Name Role Phone Charlene York Primary Care Provider Reason for Visit * Reason Onset Date Comments Test Results 05/05/2023 Breast bx Encounter Details Date Type Department Care Team (Late st Contact Info) Description 05/05/2023 Telephone Family Practice [facility] [address] [place] [address] [facility] [place] [address] Test Results (Breast bx) [...] filedocumented as of this encounter Care Teams Pyrometer Temperature Regulator Relationship Specialty Start Date End Date Charlene York CRNP [address] [place] [address] PCP - General Nurse Practitioner 03/11/23 documented as of this encounter
--- OUTSIDE RECORDS SUMMARY | 2023-07-21 02:21 | External Medical Summary | Summary of Care ---
Author Name Unknown Organization [facility] Address [address] [place] [address] Phone [phone] Care Team Providers Care Slubber Operator Name Role Phone Charlene York Primary Care Provider Reason for Referral * Precert (Within 10 days (routine)) - Authorized Specialty Diagnoses / Procedures Referred By Annabelle martines Referred To Contact Radiology Diagnoses Malignant neoplasm of upper-inner quadrant of right breast in female, estrogen receptor positive (HCC) Procedures MRI BREAST BILATERAL W WO CONTRAST Sol Sol MD [address] [employer] [place] [address] Referral ID Status Reason Start Date Expiration Date V isits Requested Visits Authorized [id number] Authorized 05/14/2023 999 999 Reason for Visit * Reason Comments NEW PATIENT Invasive carcinoma * Evaluate & Treat - Unlimited Visits (Within 3 days (urgent)) - Authorized Specialty Diagnoses / Procedures Referred By Annabelle martines Referred To Contact General Surgery Diagnoses Invasive carcinoma of breast (HCC) Charlene York CRNP [address] [place] [address] Referral ID Status Reason Start Date Expiration Date Visits Requested Visits Authorized [id number] Authorized Specialty Services Required 05/05/2023 999 999 Encounter Details Date Type Department Care Team (Late st Contact Info) Description 05/07/2023 9:15 AM EDT Office Visit General Surgery, [facility] [address] [place] [address] Sol Sol MD [address] [place] [address] Malignant neoplasm of upper-inner quadrant of right breast in female, estrogen receptor positive (HCC)* Allergies No known active allergiesdocumented as of this encounter (statuses as of 05/07/2023) Medications Medication Sig Dispensed Refills Start Date [...] as of this encounter (statuses as of 05/07/2023) Active Problems Problem Noted Date Diagnosed Date SPINAL STENOSIS-LUMBAR 08/29/2004 ADVANCE DIRECTIVE INFORMATION 07/12/2004 Overview: Pt stated she will bring in a copy of her Living Will Arthritis, 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/09/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 05/09/2004 documented as of this encounter (statuses as of 05/07/2023) Resolved Problems Problem Noted Date Diagnosed Date Resolved Date Impacted cerumen 03/11/2023 Otitis media 03/11/2023 documented as of this encounter (statuses as of 05/07/2023) Immunizations Name Administration Dates Next Due SARS-COV-2 [...] Sign Reading Time Taken Comments Blood Pressure 128/64 05/07/2023 9:00 AM EDT Pulse 89 05/07/2023 9:00 AM EDT Temperature 36.9 C (98.4 F) 05/07/2023 9:00 AM ED T Respiratory Rate - - Oxygen Saturation 96% 05/07/2023 9:00 AM EDT Inhaled Oxygen Concentration - - Weight 63 kg (138 lb 12.8 oz) 05/07/2023 9:00 AM EDT Height - - Body Mass Index 21.74 03/11/2023 2:03 PM EST documented in this encounter Progress Notes * Sol Sol MD - 05/07/2023 9:25 AM EDT [facility] GENERAL SURGERY NEW BREAST CANCER CLINIC NOTE Chief Complaint Patient presents with NEW PATIENT Invasive carcinoma REASON FOR CONSULTATION: Right Breast Cancer Clinical Stage 1, triple positive HPI: Sue Rivas is a 72 year old female who was referred by DIMITRIOS Brown for evaluation and discussion of newly diagnosed breast cancer. This was found on self examination when she felt a lump. Not painful or tender. First felt in the beginning in March. No prior breast procedures. Nofamily history of breast or ovarian cancer. She [...] receptor status is positive. HER-2/myrna receptors positive. A. Right breast, mass, core biopsy: Invasive carcinoma, 1:00 mass 8 cm from nipple no special type (NST), grade 3 at 1530 Final Diagnosis Comment Order Comments Ultrasound guided core biopsy of right breast 1:00 8 cmfn hypoechoic suspicious mass, rule out carcinoma Gross Description A. Breast, Right. Received in formalin with a container labeled with "Sue Rivas", "[id number]", "1950" and " right breast one o'clock [...] specimen is 0.9 cm. Breast, right, Block [id number]: A. Right breast, mass, core biopsy: Invasive carcinoma, 1:00 mass 8 cm from nipple no special type (NST), grade 3 Estrogen Receptor (ER) protein expression is MODERATELY POSITIVE 50% nuclear positivity 2+ average intensity score (range 0 to 3+) Progesterone Receptor (MT) protein expression is STRONGLY POSITIVE 95% nuclear positivity 3+ average intensity score (range 0 to 3+) HER2 oncoprotein expression is POSITIVE ( 3+ average membranous intensity, > 10% of invasive tumor cells) complete weak/moderate membrane staining in >10% of the invasive tumor cells) to be tested by in-situ hybridization with results to follow in an addendum Case/Block [id number] Adequacy Adequate cellular specimen Interpretation AMPLIFIED for [...] years Ever take estrogen? No RADIOLOGIC INTERPRETATION: 04/15/23 Result US BREAST LIMITED RIGHT MAMMOGRAM [...] breast ultrasound 04/15/2023. TECHNIQUE ANESTHESIA: 1% lidocaine EARLY CHILDHOOD ASSISTANT: Dr. Duong was present for and performed [...] by Dr. Duong in the presence of survey technologist and it was confirmed that procedure [...] core biopsy needle. A spring activated/ automated Sertera biopsy device was utilized. Under direct sonographic [...] be forthcoming once this has been accomplished. I personally viewed and interpreted the mammographic films and concur with the above. FAMILY HISTORY: Family history of breast cancer: [...] 1989 LAPAROSCOPY; CHOLECYSTECTOMY 12/01/2007 Dr Bergeron at [facility] LIGATE/CUT OVIDUCT(S) AT SURGERY MT ARTHROSCOPY KNEE DIAGNOSTIC W/WO SYNOVIAL BX SPX Right 2004 RIGHT SHOULDER rc REpair MT ARTHRP KNE CONDYLE&PLATU MEDIAL&LAT COMPARTMENTS Left 2019 [facility] ortho US GUIDED BREAST BIOPSY RIGHT [...] for this visit. ALLERGIES: Allergies as of 05/07/2023 (No Known Allergies) SOCIAL HISTORY: Social History [...] rashes, no itching PHYSICAL EXAMINATION: Blood pressure 128/64, pulse 89, temperature 36.9 C (98.4 F), weight 63 kg (138 lb 12.8 oz), SpO2 96%. Constitutional: alert, healthy Head: normocephalic, atraumatic Eyes: conjunctiva non-injected, sclera white Ears: pinna normal shape and color Neck: supple, no adenopathy Lungs: clear to auscultation, breath sounds are equal and symmetric Heart: regular rate & rhythm and no murmur, gallops or rubs Abdomen: soft, non-tender, has a moderate size epigastric hernia Back: normal curvature Extremities: no edema Neuro: alert, gait normal, motor normal BREAST EXAMINATION: Smaller breasted Right Breast: Right Breast: Masses [...] adenopathy: No Previous axillary incision: No IMPRESSION: 72-year-old woman with newly diagnosed triple positive right breast cancer in the upper inner breast which measures 16 mm on imaging. This was found on workup of a palpable lump. Given that this is a triple positive breast cancer, it is likely that she will require chemotherapy. Discussed the potential benefit of doing this in a neoadjuvant fashion - it should allow for shrinkage of the tumor to improve cosmetic result given her smaller breast size, and allows for in vivo assessment of the tumor's response to chemotherapy. We also talked about surgical treatment options. She would be a candidate for a lumpectomy either pre or post chemotherapy depending on above testing. Reviewed that there is a survival benefit to breast conservation with lumpectomy and radiation therapy vs mastectomy. The largest difference is the risk of local recurrence - this is under 5% with mastectomy as some breast tissue is left to supportthe skin vs 10% with breast conserving therapy. Importance of radiation therapy to breast to complete local treatment discussed. Risks of bleeding, infection, cosmetic deformity of the breast, seromaformation, chronic discomfort, and scar all discussed. Should we proceed to surgery now, she would not need a mar greenhouse laborer placement as the tumor is palpable (will do specimen radiograph). Should she undergo chemo upfront, will plan on mar greenhouse laborer placementif the lesion is no longer palpable. We discussed sentinel lymph node biopsy with identification of the nodes with both blue dye (risks of tattooing of skin) and technetium sulfur colloid. Removal of 2-4 nodes with a small (<8%) riskof lymphedema was reviewed. This procedure would be done at the same time as the breast procedure. Expected same day nature of the surgery and 2 week recovery period discussed. I would recommend a bilateral breast MRI scan given her density on mammography. We reviewed that systemic staging would be deferred to medical Oncology. We reviewed the possible need for medications to block estrogen following completion of treatment. This will be discussed with her further by medical Oncology. PLAN: Bilateral breast MRI scan. Medical Oncology referral. Consider neoadjuvant chemotherapy. Following completion of chemotherapy, she is a candidate for a right lumpectomy and sentinel node biopsy. She may require MAR greenhouse laborer localization if there is good tumor response to the chemotherapy. Radiation therapy to complete local treatment will be needed. I spent a total of Greater than 55 mins (exact time 62 mins) on the date of service in preparation,delivery, and documentation of the care provided to Sue Rivas excluding any time spent in the performance of separately billed services. Sol Sol M.D. 05/07/2023 12:48 PM documented in this encounter Nursing Notes * Kristine Aguilar LPN - 05/07/2023 8:58 AM EDT Patient identified by name and date of . Chief Complaint Patient presents with NEW PATIENT Invasive carcinoma Mammo IMPRESSION IMPRESSION 1. Ultrasound guided core biopsy [...] be forthcoming once this has been accomplished. .Patient presents today for evaluation of Abnormal Mammogram. Patient had mammogram done at [facility] on 04/15/2023 and than an US guided biopsy on 04/29/2023 BREAST HISTORY: Mass: No Breast Pain: no Nipple discharge: No Previous problems/surgeries: None Breast Cancer: no Other Cancers: no GYNECOLOGIC HISTORY: LMP: No LMP recorded. Patient is postmenopausal. Menarche at age: approx 15 years -16 years of age. Menopause at age: 51 approx Number of children: 3 Patient's age at first live : Yes- 24 ? Did you breast feed any of your children: No Ever take oral contraceptives? Yes, took them for approx 3-4 years Ever take estrogen? No Family History of Breast Cancer: No documented in this encounter Plan of Treatment Upcoming Encounters Date Type Department Care Team (Late st Contact Info) Description 05/14/2023 12:15 PM EDT Office Visit Hematology/Oncology [facility] [address] [place] [id number] Faustino Sharif MD [address] [facility] [place] [phone] 06/02/2023 8:00 AM EDT Imaging Radiology [address] [place] [address] Scheduled Orders Name Type Priority Associated Diagnoses Orde r Schedule MRI BREAST BILATERAL W WO CONTRAST Medical Imaging Routine Malignant neoplasm of upper-inner quadrant of right breast in female, estrogen receptor positive (HCC) Expected: 05/14/2023 (Approximate), Expires: 06/06/2024 Health Maintenance Due Date Last Done Comments [...] Primary documented in this encounter Care Teams Slubber Operator Relationship Specialty Start Date End Date Charlene York CRNP [address] [place] [address] PCP - General Nurse Practitioner 03/11/23 documented as of this encounter
--- OUTSIDE RECORDS SUMMARY | 2023-07-21 02:21 | External Medical Summary | Summary of Care ---
Author Name Unknown Organization [facility] Address [address] [place] [address] Phone [phone] Care Team Providers Care Plumber Maintenance Name Role Phone Charlene York Primary Care Provider Reason for Visit * Reason Onset Date Comments Order Request 04/03/2023 Encounter Details Date Type Department Care Team (Late st Contact Info) Description 04/03/2023 Telephone Family Practice [facility] [address] [place] [address] Charlene York CRNP [address] [place] [address] Order Request Allergies No known active allergiesdocumented as of this encounter (statuses as of 04/07/2023) Medications Medication Sig Dispensed Refills Start Date [...] as of this encounter (statuses as of 04/07/2023) Active Problems Problem Noted Date Diagnosed Date SPINAL STENOSIS-LUMBAR 08/29/2004 ADVANCE DIRECTIVE INFORMATION 07/12/2004 Overview: Pt stated she will bring in a copy of her Living Will Arthritis, 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/09/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 * Telephone Encounter - Briana Matt OSA - 04/03/2023 2:31 PM EST An order was requested for this patient. Name of Requesting Provider: patient Order Requested: mammogram Diagnosis/Reason for Request: yearly mammogram If order request is for Mammogram: Is the patient having any breast symptoms? No Is there a chance of ? No Has the patient had any breast problems in the past? No What location AND department does the patient wish to have their order completed at? [facility] Fax Number, if applicable: Call Back Number: [phone] If the caller is not a current patient, please advise the patient to call their current PCP to havethe order's prior to being seen in our office. The patient was informed that our providers would not order anything (medication, labs, etc.) prior to being seen. documented in this encounter Plan of Treatment Upcoming Encounters Date Type Department Care Team (Late st Contact Info) Description 04/14/2023 8:30 AM EST Imaging Radiology [address] [facility] [place] [address] Health Maintenance Due Date Last Done Comments DXA Scan 1950 Pneumococcal Vaccine: 65+ Years (1 - PCV) 06/16/1957 Depression Screening 1963 Hepatitis C Screening 06/16/1969 Zoster Vaccines (1 of 2) 06/16/1970 Mammogram 1991 Cologuard 06/16/1996 Colonoscopy 06/16/1996 Colorectal Cancer Screening 06/16/1996 Fecal Occult Blood Test 06/16/1996 Sigmoidoscopy 06/16/1996 Influenza Vaccine (FLU shot) (#1) 2022 12/15/2013, 03/23/2013, 01/20/2006, Additional history exists COVID-19 Vaccine ( season) 2023 02/03/2023, 06/04/2020, 05/03/2020 Lipid Panel 03/11/2028 03/11/2023 DTaP,Tdap,and Td Vaccines [...] filedocumented as of this encounter Care Teams Plumber Maintenance Relationship Specialty Start Date End Date Charlene York CRNP [address] [place] [address] PCP - General Nurse Practitioner 03/11/23 documented as of this encounter
--- OUTSIDE RECORDS SUMMARY | 2023-07-21 02:21 | External Medical Summary | Summary of Care ---
Author Name Unknown Organization [facility] Address [address] [facility] [address] Phone [phone] Care Team Providers Care Lean Sensei Name Role Phone Charlene York Primary Care Provider Reason for Visit * Reason Comments Outpatient Testing Encounter Details Date Type Department Care Team (Late st Contact Info) Description 05/14/2023 1:20 PM EDT Laboratory Laboratory [facility] [address] [place] [phone] [facility] [address] [place] [address] Arrived Allergies No known active allergiesdocumented as [...] Description 05/20/2023 2:30 PM EDT Imaging Radiology [address] [place] [address] 06/03/2023 8:00 AM EDT Imaging Radiology [address] [place] [address] 06/11/2023 8:15 AM EDT Office Visit Hematology/Oncology [facility] [place] [address] [place] [place] [phone] Faustino Sharif MD [address] [place] [address] Health Maintenance Due Date Last Done Comments [...] filedocumented as of this encounter Care Teams Lean Sensei Relationship Specialty Start Date End Date Charlene York CRNP [address] [place] [address] PCP - General Nurse Practitioner 03/11/23 documented as of this encounter
--- OUTSIDE RECORDS SUMMARY | 2023-07-21 02:21 | External Medical Summary | Summary of Care ---
Author Name Unknown Organization [facility] Address [address] [facility] [place] [address] Phone [phone] Care Team Providers Care Principal Data Architect Name Role Phone Charlene York Primary Care Provider Encounter Details Date Type Department Care Team (Late st Contact Info) Description 04/22/2023 Orders Only Family Practice [facility] [place] [address] Charlene York CRNP [address] [facility] [place] [address] Allergies No known active allergiesdocumented as of this encounter (statuses as of 04/22/2023) Medications Medication Sig Dispensed Refills Start Date [...] as of this encounter (statuses as of 04/22/2023) Active Problems Problem Noted Date Diagnosed Date SPINAL STENOSIS-LUMBAR 08/29/2004 ADVANCE DIRECTIVE INFORMATION 07/12/2004 Overview: Pt stated she will bring in a copy of her Living Will Arthritis, 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/09/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 05/09/2004 documented as of this encounter (statuses as of 04/22/2023) Resolved Problems Problem Noted Date Diagnosed Date Resolved Date Impacted cerumen 03/11/2023 Otitis media 03/11/2023 documented as of this encounter (statuses as of 04/22/2023) Immunizations Name Administration Dates Next Due SARS-COV-2 [...] Description 04/29/2023 11:30 AM EST Imaging Radiology [facility] [address] [place] [address] 04/29/2023 12:00 PM EST Imaging Radiology [address] [place] [address] Health Maintenance Due Date Last Done Comments Pneumococcal Vaccine: 65+ Years (1 of 2 - PCV) 06/16/1956 Depression Screening 1962 Hepatitis C Screening 06/16/1969 Zoster Vaccines (1 of 2) 06/16/1970 Cologuard 06/16/1996 Colonoscopy 06/16/1996 Colorectal Cancer Screening 06/16/1996 Fecal Occult Blood Test 06/16/1996 Sigmoidoscopy 06/16/1996 Influenza Vaccine (FLU shot) (#1) 2022 12/15/2013, 03/23/2013, 01/20/2006, Additional history exists COVID-19 Vaccine (4 - 2023-24 season) 2023 02/03/2023, 06/04/2020, 05/03/2020 Mammogram 04/15/2024 04/15/2023 Lipid Panel 03/11/2028 03/11/2023 DXA Scan 04/22/2030 07/25/2020 DTaP,Tdap,and Td Vaccines (3 - Td or [...] Procedure Name Priority Date/Time Associated Diagnosis Comments DEXA SCAN/BONE MINERAL AXIAL Routine 07/25/2020 documented in this encounter Results * DEXA SCAN/BONE MINERAL AXIAL (07/25/2020) Anatomical Region Laterality Modality Dexa, Vertebra, Spine, Hip, Pelvis Other 07/25/2020 History Per Patient RADIOLOGY (RAD GENER AL) documented in this encounter Care Teams Principal Data Architect Relationship Specialty Start Date End Date Charlene York CRNP [address] [place] [address] PCP - General Nurse Practitioner 03/11/23 documented as of this encounter
--- OUTSIDE RECORDS SUMMARY | 2023-07-21 02:21 | External Medical Summary | Summary of Care ---
Author Name Unknown Organization [facility] Address [address] [facility] [place] [address] Phone [phone] Care Team Providers Care Mining And Quarrying Machinery Repairer Name Role Phone Charlene York Primary Care Provider Reason for Visit * Reason Onset Date Comments Test Results 04/15/2023 Encounter Details Date Type Department Care Team (Late st Contact Info) Description 04/15/2023 Telephone Family Practice [facility] [address] [place] [address] [...] encounter Miscellaneous Notes * Telephone Encounter - Marylou Reese LPN - 04/16/2023 3:49 PM EST Patient returned call. Informed of message. Verbalized understanding. * Telephone Encounter - Charlene York CRNP [...] was aware and agreeable to biopsy. Dea, KUNAL, DIMITRIOS [facility] Medicine documented in this encounter Plan of Treatment Upcoming Encounters Date Type Department Care Team (Late st Contact Info) Description 04/29/2023 11:30 AM EST Imaging Radiology [facility] [address] [place] [address] 04/29/2023 12:00 PM EST Imaging Radiology [address] [place] [address] Scheduled Orders Name Type Priority Associated Diagnoses [...] breast documented in this encounter Care Teams Mining And Quarrying Machinery Repairer Relationship Specialty Start Date End Date Charlene York CRNP [address] [place] [address] PCP - General Nurse Practitioner 03/11/23 documented as of this encounter
--- OUTSIDE RECORDS SUMMARY | 2023-07-21 02:21 | External Medical Summary | Summary of Care ---
Author Name Unknown Organization [facility] Address [address] [facility] [place] [address] Phone [phone] Care Team Providers Care Manager Architecture Name Role Phone Charlene York Primary Care Provider Reason for Visit * Reason Onset Date Comments Appointment 06/01/2023 Encounter Details Date Type Department Care Team (Late st Contact Info) Description 06/01/2023 Telephone Radiology [address] [place] [id number] Aaliyah Guerrero, RT (M) Appointment Allergies No known active allergiesdocumented as of this encounter (statuses as of 06/01/2023) Medications Medication Sig Dispensed Refills Start Date [...] as of this encounter (statuses as of 06/01/2023) Active Problems Problem Noted Date Diagnosed Date SPINAL STENOSIS-LUMBAR 08/29/2004 ADVANCE DIRECTIVE INFORMATION 07/12/2004 Overview: Pt stated she will bring in a copy of her Living Will Arthritis, 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/09/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 Yes - TKR Have you ever worked with metal or have you ever gotten metal in your eyes? No Have you had a colonoscopy in the last 30 days? No On dialysis? No Do you have any dermals or body piercing's? No or ? No Do you wear an insulin pump or diabetic monitor? No RT Karey Hernandez) documented in this encounter Plan of Treatment Upcoming Encounters Date Type Department Care Team (Late st Contact Info) Description 06/03/2023 8:00 AM EDT Imaging Radiology [address] [place] [address] 06/11/2023 8:15 AM EDT Office Visit Hematology/Oncology [facility] [place] [address] [facility] [place] [phone] Faustino Sharif MD [address] [facility] [place] [address] Health Maintenance Due Date Last Done Comments [...] filedocumented as of this encounter Care Teams Manager Architecture Relationship Specialty Start Date End Date Charlene York CRNP [address] [place] [address] PCP - General Nurse Practitioner 03/11/23 documented as of this encounter
--- OUTSIDE RECORDS SUMMARY | 2023-07-21 02:22 | External Medical Summary ---
Author Name Unknown Address Unknown Organization K01:[facility] [address] [facility] [address] Laboratory Report Ordering Provider Test Date Status TARIK NUGENT 02/11/2023 15:37:54 Final Observation Date Value Abnormality Reference (Units ) Status Bacteria identified in Specimen by Culture 02/11/2023 15:37:54 [id number]^ESCHE RICHIA COLI Abnormal Final 10,000 to 100,000 colonies/m L Escherichia coli Performing Location [facility] - [address] [place] [address] Ordering Provider Test Date Status TARIK NUGENT 02/11/2023 15:37:54 Final Observation Date Value Abnormality Reference (Units ) Status Ampicillin 02/11/2023 15:37:54 >=32 Resistant Final Ampicillin + Sulbactam 02/11/2023 15:37:54 16 Intermediate Final Cefazolin 02/11/2023 15:37:54 <=4 Susceptible Final Cefepime susceptibility 02/11/2023 15:37:54 <=1 Susceptible Final Ceftriaxone suceptibility 02/11/2023 15:37:54 <=1 Susceptible Final Ciprofloxacin 02/11/2023 15:37:54 <=0.25 Susceptible Final Due to serious side effects, the FDA has advised against using Ciprofloxacin to treat uncomplicated UTIs and respiratory tract infections unless there are no alternative treatment options. Gentamicin susceptibility 02/11/2023 15:37:54 >=16 Resi stant Final Levofloxacin susceptibility 02/11/2023 15:37:54 <=0.12 [place] sceptible Final Due to serious side effects, the FDA has advised against using Levofloxacin to treat uncomplicated UTIs and respiratory tract infections unless there are no alternative treatment options. Nitrofurantoin susceptibility 02/11/2023 15:37:54 <=16 Susceptible Final Piperacillin + Tazobactamsusceptibility 02/11/2023 15:37:54 <=4 Susceptible Final Tobramycinsusceptibility 02/11/2023 15:37:54 8 Inter mediate Final TMP-SMZ susceptibility 02/11/2023 15:37:54 >=320 Resista nt Final Test: Culture, Urine, Quanti tative
Specimen Source: Urine, Clean Catch
Specimen Type: Urine
Specimen Date: 02/11/2023 3:37 PM
Result Date: 02/13/2023 8:11 AM
Result Status: Final result
Abnormal: Yes
Resulting Lab: [facility]
[address]
[place] [address]

CULTURE

10,000 to 100,000 colonies/mL Escherichia coli (Abnormal)

SUSCEPTIBILITY

Escherichia coli
METHOD MICROBROTH DILUTIONS

AMPICILLIN >=32 Resistant
AMPICILLIN/SULBACTAM 16 Intermediate
CEFAZOLIN <=4 Susceptible
CEFEPIME <=1 Susceptible
CEFTRIAXONE <=1 Susceptible
CIPROFLOXACIN <=0.25 Susceptible [1]
GENTAMICIN >=16 Resistant
LEVOFLOXACIN <=0.12 Susceptible [2]
NITROFURANTOIN <=16 Susceptible
PIPERACILLIN TAZOBACTAM <=4 Susceptible
TOBRAMYCIN 8 Intermediate
TRIMETH/SULFAMETHOXAZOLE >=320 Resistant

[1] Due to serious side effects, the FDA has advised against using
Ciprofloxacin to treat uncomplicated UTIs and respiratory tract infections
unless there are no alternative treatment options.

[2] Due to serious side effects, the FDA has advised against using
Levofloxacin to treat uncomplicated UTIs and respiratory tract infections
unless there are no alternative treatment options.

null Performing Location LAB[facility]AT[facility] - [address] [facility] [address]
--- OUTSIDE RECORDS SUMMARY | 2023-07-21 02:22 | External Medical Summary | Summary of Care ---
Author Name Unknown Organization [facility] Address [address] [place] [address] Phone [phone] Care Team Providers Care Gardening Supervisor Name Role Phone Charlene York Primary Care Provider Reason for Visit * Reason Onset Date Comments Test Results 03/12/2023 Encounter Details Date Type Department Care Team (Late st Contact Info) Description 03/12/2023 Telephone Family Practice [facility] [address] [place] [address] Charlene York CRNP [address] [place] [address] Test Results Allergies No known active allergiesdocumented as of this encounter (statuses as of 03/12/2023) Medications Medication Sig Dispensed Refills Start Date [...] as of this encounter (statuses as of 03/12/2023) Active Problems Problem Noted Date Diagnosed Date SPINAL STENOSIS-LUMBAR 08/29/2004 ADVANCE DIRECTIVE INFORMATION 07/12/2004 Overview: Pt stated she will bring in a copy of her Living Will Arthritis, 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/09/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 * Telephone Encounter - Vania Brown LPN - 03/12/2023 1:27 PM EST Called pt and left vm message to call office about lab results. See Jaylen's note below. * Telephone Encounter - Charlene York CRNP - 03/12/2023 12:25 PM EST Please notify patient Cholesterol, kidneys and electrolytes and blood sugar normal. Dea, MSN, D[facility] documented in this encounter Plan of Treatment [...] filedocumented as of this encounter Care Teams Gardening Supervisor Relationship Specialty Start Date End Date Charlene York CRNP [address] [place] [address] PCP - General Nurse Practitioner 03/11/23 documented as of this encounter
--- OUTSIDE RECORDS SUMMARY | 2023-07-21 02:22 | External Medical Summary | Summary of Care ---
Author Name Unknown Organization [facility] Address [address] [place] [address] Phone [phone] Care Team Providers Care Newspaper Photographer Name Role Phone Unavailable Primary Care Provider Unavailabl e Reason for Visit * Reason Comments Washroom Cleaner New Encounter Details Date Type Department Care Team (Late st Contact Info) Description 02/11/2023 2:30 PM EST Office Visit Gynecology/Obstetric s Merlin Medeiros [address] [place] [address] Nicole Hammond PA-C [address] [place] [address] Dysuria*; Vaginal burning; Postmenopausal atrophic vaginitis; Hematuria, microscopic Allergies Active Allergy Reactions Criticality Noted Date Comments Propoxyphene 04/15/2004 sick documented as of this encounter (statuses as of 02/11/2023) Medications Medication Sig Dispensed Refills Start Date End Date Status ENBREL 50 MG/ML SC SOLN twice a week 0 0 04/15/2004 Active FOLIC ACID 1 MG OR TABS 1 TABLET DAILY 0 0 04/15/2004 Active CALTRATE 600 + D TABS 600-125 MG-IU OR daily 0 0 04/15/2004 Active MOBIC 7.5 MG PO TABS One pill by mouth once a day for pain as needed 0 10/05/2007 Active Methotrexate 2.5 MG Oral Tablet Take by mouth once a week. 6 tablets once a week 0 Active Cephalexin 500 MG Oral Capsule (Keflex)Indicatio ns:Dysuria Take 1 Capsule by mouth in the morning and 1 Capsule before bedtime. Do all this for 7 days. Until gone.. 14 Capsule 0 02/11/2023 02/18/2023 Active NSS 0.9 % SOLN 100 mL with Abatacept 250 MG SOLR Administer intravenously once. 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 05/09/2004 Impacted cerumen Otitis media documented as of this encounter (statuses as of 02/11/2023) Immunizations Name Administration Dates Next Due Seasonal Influenza, Split, IIV3, With Preserve, Inj 01/20/2006 documented as of this encounter Social History Tobacco Use Types Packs/Day Years Used Date Smoking Tobacco: Never Alcohol Use Standard Drinks/Week Comments [...] Sign Reading Time Taken Comments Blood Pressure 112/60 02/11/2023 2:29 PM EST Pulse - - Temperature - - Respiratory Rate - - Oxygen Saturation - - Inhaled Oxygen Concentration - - Weight 63.6 kg (140 lb 3.2 oz) 02/11/2023 2:29 P M EST Height 170.2 cm (5' 7") 02/11/2023 2:29 PM EST Body Mass Index 21.96 02/11/2023 2:29 PM EST documented in this encounter Progress Notes * Nicole aHmmond PA-C - 02/11/2023 2:27 PM EST SUBJECTIVE: Sue Rivas is a 72 year old female here for vaginal burning and burning when she urinates. Chief Complaint Patient presents with Washroom Cleaner New HPI: 72 year old with vaginal burning and burning with urinate. Symptoms started on end December. Treated with OTC cream for yeast infection x 2. Symptoms resolved with cream, but returned shortly after stopping. Feels that symptoms are now worsening, still with burning with urination. Feels she also have pain with urination. Patient is postmenopausal. Denies any history of kidney disease. She has RA on several medications including Orencia transfusion. Denies fever, chills, flank pain or abdominal pain. Medications: Current Outpatient Medications Medication Sig Dispense Refill FOLIC ACID 1 MG OR TABS 1 TABLET DAILY 0 0 CALTRATE 600 + D TABS 600-125 MG-IU OR daily 0 0 Methotrexate 2.5 MG Oral Tablet Take by mouth once a week. 6 tablets once a week ENBREL 50 MG/ML SC SOLN twice a week 0 0 MOBIC 7.5 MG PO TABS One pill by mouth once a day for pain as needed No current facility-administered medications for this visit. 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 OBJECTIVE: BP 112/60 | Ht 1.702 m (5' 7") | Wt 63.6 kg (140 lb 3.2 oz) | BMI 21.96 kg/m | BSA 1.73 m General: awake, alert, and oriented x 3, normal affect, no acute distress Abdomen: abdomen soft, non-tender, normal bowel sounds, and no masses or organomegaly External Genitalia/Vulva: anatomy is normal, no significant redness of labia, no discharge on vulvar tissues, ulcers are absent, no condylomatous lesions Vagina: + atrophy, no significant discharge present concerning for yeast by exam Cervix: maliparous and atrophic, without lesion. Uterus: normal size, normal shape, mobile, non-tender. Adnexa: normal size and shape bilaterally and non-tender bilaterally UA on site dip: + blood moderate 1+ protein - nitrites + leukocytes Bucket Pusher Documentation Provider requested stevedoring supervisor. Name of stevedoring supervisor: DARLINE ByrdFIXED WING PILOT/PLAN: Dysuria (Primary) Will treat given symptomatic and UA here in office while awaiting culture. Pt comfortable with thisplan. - CULTURE, URINE, QUANTITATIVE - Cephalexin 500 MG Oral Capsule (Keflex); Take 1 Capsule by mouth in the morning and 1 Capsule before bedtime. Do all this for 7 days. Until gone.. - URINALYSIS, POINT OF CARE (ENTER/EDIT) Vaginal burning - VAGINOSIS PANEL, PCR; Future; Expected date: 02/11/2023 Postmenopausal atrophic vaginitis Reviewed with patient, we discussed topical estrogen for treatment and relief of symptoms such as vaginal burning. Pt would like to await urine results and treatment to determine if symptoms persistsprior to start of treatment. Hematuria, microscopic Culture collected, if negative for infection. Repeat sampling to reassess and consider kidney function in future. Follow Up: Return if symptoms worsen or fail to improve, for Clinic Visit. | For: Clinic Visit Nicole Hammond PA-C I spent a total of 30-39 minutes (exact time 32 mins) on the date of service in preparation, delivery, and documentation of the care provided to Sue Rivas excluding any time spent in the performance of separately billed services. documented in this encounter Nursing Notes * Rochelle Lewis RN - 02/11/2023 2:21 PM EST New patient here to discuss ongoing vaginal burning since end of December. Tried over the counter treatment for yeast infection x 2 with no improvement. Most recently developed burning with urination. documented in this encounter Miscellaneous Notes * Addendum Note - Nicole Hammond PA-C - 02/11/2023 3:31 PM ESTAddended by: NICOLE HAMMOND on: 02/11/2023 03:31 PM Modules accepted: Orders documented in this encounter Plan of Treatment Pending Results Name Type Priority Associated Diagnoses Date /Time CULTURE, URINE, QUANTITATIVE Lab Routine Dysuria 02/11/2023 3:37 PM EST VAGINOSIS PANEL, PCR Lab Routine Vaginal burning 02/11/2023 3:37 PM EST Scheduled Orders Name Type Priority Associated Diagnoses Orde r Schedule VAGINOSIS PANEL, PCR Lab Routine Vaginal burning Expected: 02/11/2023, Expires: 02/12/2024 Health Maintenance Due Date Last Done Comments DXA Scan 1951 Lipid Panel 1951 Depression Screening 1963 Hepatitis C Screening 06/16/1969 Zoster Vaccines (1 of 2) 06/16/1970 Mammogram 1991 Cologuard 06/16/1996 Colonoscopy 06/16/1996 Colorectal Cancer Screening 06/16/1996 Fecal Occult Blood Test 06/16/1996 Sigmoidoscopy 06/16/1996 Pneumococcal Vaccine: 65+ Years (1 - PCV) 06/16/2016 COVID-19 Vaccine (3 - Moderna risk series) 07/02/2020 06/04/2020, 05/03/2020 DTaP,Tdap,and Td Vaccines (2 - Td or Tdap) 06/30/2022 06/30/2012 Influenza Vaccine (FLU shot) (#1) 2022 12/15/2013, 03/23/2013, 01/20/2006, Additional history exists GARDASIL-HPV IMMUNIZATION SERIES Aged Out No longer [...] Procedure Name Priority Date/Time Associated Diagnosis Comments URINALYSIS, POINT OF CARE (ENTER/EDIT) Routine 02/11/2023 Dysuria documented in this encounter Results * URINALYSIS, POINT OF CARE (ENTER/EDIT) (02/11/2023) Color, Urine Yellow Yellow or Light Yellow Clarity, Urine Cloudy Clear Glucose, Urine Negative Negative mg/dL Bilirubin, Urine Negative Negative Ketone, Urine Negative Negative mg/dL Specific [place], Urine 1.025 1.003 - 1.030 Blood, Urine Moderate Negative pH, Urine 5.5 5.0 - 7.5 units Protein, Urine 30 Negative mg/dL Urobilinogen, Urine 0.2 0.2 - 1.0 mg/dL Nitrite, Urine Negative Negative Esterase, Urine Moderate Negative Urine 02/11/2023 Nicole Hammond PA-C LAB POINT OF CARE TE ENTER/EDIT ORDERABLES documented in this encounter Visit Diagnoses Diagnosis Dysuria- Primary Vaginal burning Other specified symptom associated with female genital organs Postmenopausal atrophic vaginitis Hematuria, microscopic Microscopic hematuria documented in this encounter
--- OUTSIDE RECORDS SUMMARY | 2023-07-21 02:22 | External Medical Summary ---
Author Name Unknown Address Unknown Organization K01:LABORATORY [address] [facility] [address] Laboratory Report Ordering Provider Test Date Status TARIK NUGENT 02/11/2023 15:37:54 Final Observation Date Value Abnormality Reference (Units ) Status Paige glabrata DNA [Presence] in Vaginal fluid by ANDRIY with probe detection 02/11/2023 15:37:54 Negative Negative Final Paige glabrata not detecte d by PCR. Paige albicans DNA [Presen ce] in Vaginal fluid by ANDRIY with probe detection 02/11/2023 15:37:54 Negative Negative Final Paieg albicans not detecte d by PCR. Trichomonas vaginalis DNA [P resence] in Vaginal fluid by ANDRIY with probe detection 02/11/2023 15:37:54 Negative Negative Final Trichomonas vaginalis not de tected by PCR. Gardnerella vaginalis DNA [P resence] in Vaginal fluid by Probe with signal amplification 02/11/2023 15:37:54 Negative Negative Final Gardnerella vaginalis not de tected by PCR.

This test was developed and its performance characteristics determined by [facility]. It has not been cleared or approved by the U.S. Food and Drug Administration (FDA). FDA does not require this test to go through premarket FDA review. This test is used for clinical purposes. It should not be regarded as investigational or for research. This laboratory is certified under the Clinical Laboratory Improvement Amendments (CLIA) as qualified to perform high complexity clinical laboratory testing.

The validation of self-collected vaginal swabs for this assay was developed and performance characteristics determined by [facility]. The validation of alternate specimen types has not been cleared or approved by the U.S. Food and Drug Administration (FDA). It has been determined that such clearance or approval is not necessary.

null Performing Location LABORATORY [address] [facility] [address]
--- OUTSIDE RECORDS SUMMARY | 2023-07-21 02:22 | External Medical Summary | Summary of Care ---
Author Name Unknown Organization [facility] Address [address] [place] [address] Phone [phone] Care Team Providers Care Rotary Helper Name Role Phone Unavailable Primary Care Provider Unavailabl e Reason for Visit * Reason Comments Memorial Marker Designer New Encounter Details Date Type Department Care Team (Late st Contact Info) Description 02/11/2023 2:30 PM EST Office Visit Gynecology/Obstetric s Merlin Medeiros [address] [place] [address] Nicole Hammond PA-C [address] [place] [address] Dysuria*; Vaginal burning; Postmenopausal atrophic vaginitis; Hematuria, [...] in this encounter Progress Notes * Nicole Hammond PA-C - 02/11/2023 2:27 PM EST SUBJECTIVE: Sue Rivas is a 72 year old female here for vaginal burning and burning when she urinates. Chief Complaint Patient presents with Memorial Marker Designer New HPI: 72 year old with vaginal [...] Date LAPAROSCOPY; CHOLECYSTECTOMY 12/01/2007 Dr Bergeron at [facility] Family History Problem Relation Age of Onset [...] moderate 1+ protein - nitrites + leukocytes Eyeglass Cutter Documentation Provider requested manager meeting. Name of manager meeting: DARLINE ByrdNURSE SCHOOL/PLAN: Dysuria (Primary) Will treat given symptomatic and [...] Negative Ketone, Urine Negative Negative mg/dL Specific [place], Urine 1.025 1.003 - 1.030 Blood, Urine [...]
--- OUTSIDE RECORDS SUMMARY | 2023-07-21 02:22 | External Medical Summary | Summary of Care ---
Author Name Unknown Organization [facility] Address [address] [place] [address] Phone [phone] Care Team Providers Care Mine Engineering Supervisor Name Role Phone Charlene York Primary Care Provider Reason for Visit * Reason Comments NEW PATIENT Patient presents in office as a new patient to re-establish care (has not been seen in quite sometime) Encounter Details Date Type Department Care Team (Late st Contact Info) Description 03/11/2023 2:00 PM EST Office Visit [facility] [address] [place] [address] Charlene York CRNP [address] [facility] [place] [address] Rheumatoid arthritis, involving unspecified site, unspecified whether rheumatoid factor present (HCC)*; 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; SPINAL STENOSIS-LUMBAR; Age related osteoporosis, unspecified pathological fracture presence; Screening for lipid disorders; Screening for diabetes mellitus; Need for foxaphaxfb-cchmjkz-vt rtussis (Tdap) vaccine; Abrasion of left hand, initial encounter Allergies No known active allergiesdocumented as of this encounter (statuses as of 03/11/2023) Medications Medication Sig Dispensed Refills Start Date [...] Solution Reconstituted (Abatacept) Administer intravenously. 0 Active ENBREL 50 MG/ML SC SOLN twice a week 0 0 04/15/2004 4 Discontinue d(Medicatio n List Clean Up) CALTRATE 600 + D TABS 600-125 MG-IU OR daily 0 0 04/15/2004 4 Discontinue d(Medicatio n List Clean Up) NSS 0.9 % SOLN 100 mL with Abatacept 250 MG SOLR Administer intravenously once. 0 4 Discontinue d(Medicatio n List Clean Up) documented as of this encounter (statuses as of 03/11/2023) Active Problems Problem Noted Date Diagnosed Date SPINAL STENOSIS-LUMBAR 08/29/2004 ADVANCE DIRECTIVE INFORMATION 07/12/2004 Overview: Pt stated she will bring in a copy of her Living Will Arthritis, 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/09/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 05/09/2004 documented as of this encounter (statuses as of 03/11/2023) Resolved Problems Problem Noted Date Diagnosed Date Resolved Date Impacted cerumen 03/11/2023 Otitis media 03/11/2023 documented as of this encounter (statuses as of 03/11/2023) Immunizations Name Administration Dates Next Due SARS-COV-2 [...] Sign Reading Time Taken Comments Blood Pressure 110/62 03/11/2023 2:03 PM EST Pulse 79 03/11/2023 2:03 PM EST Temperature - - Respiratory Rate 16 03/11/2023 2:03 PM EST Oxygen Saturation 99% 03/11/2023 2:03 PM EST Inhaled Oxygen Concentration - - Weight 63.1 kg (139 lb 3.2 oz) 03/11/2023 2:03 P M EST Height 170.2 cm (5' 7") 03/11/2023 2:03 PM EST Body Mass Index 21.8 03/11/2023 2:03 PM EST documented in this encounter Progress Notes * Romana Loza MED ASSIST - 03/11/2023 2:52 PM EST Pre-Administration Time Out Procedure Performed: Yes Patient Identified (Ask Name/Date of ): Yes Does the patient have a fever greater than 101 degrees today? No Patient allergic to latex? No Has the patient ever fainted after receiving an injection? No VFC Stock: No Immunization(s) verified: Yes, Immunization Name: Tdap (Boostrix), VIS Sheet(s) given: Yes Verified Side and Site: Yes Verified Shot(s) with Parent(s)/Patient: Yes * Charlene York CRNP - 03/11/2023 2:23 PM EST Follow up Family Medicine Visit CC: Chief Complaint Patient presents with NEW PATIENT Patient presents in office as a new patient to re-establish care (has not been seen in quite sometime) History of Present Illness: Sue Rivas is a 72 year old female presenting to establish care. She gets orencia once monthly. Sees Dr. Chang in [place] q 3 months. Also methotrexate for around 10 yeas. Ra is much. Never had PFT but also does not have symptoms. Last mammogram was years ago Last colonoscopy [facility] 20 year ago Social History Socioeconomic History Marital status: Spouse name: Not on file Number of children: Not on file Years of education: Not on file Highest education level: Not on file Occupational History Not on file Tobacco Use Smoking status: Never Smokeless tobacco: Never Vaping Use Vaping Use: Never used Substance and Sexual Activity Alcohol use: No Drug use: Never Sexual activity: Not Currently Partners: Male Other Topics Concern Not on file Social History Narrative Not on file Social Determinants of Health Financial Resource Strain: Not on file Food Insecurity: Not on file Transportation Needs: Not on file Physical Activity: Not on file Stress: Not on file Social Connections: Not on file Intimate Partner Violence: Not on file Housing Stability: Not on file PMH: Past Medical History: Diagnosis Date Arthritis, rheumatoid (HCC) Impacted cerumen 2006 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 Otitis media 2005 Past Surgical History: Procedure Laterality Date LAPAROSCOPY; CHOLECYSTECTOMY 12/01/2007 Dr Bergeron at [facility] LIGATE/CUT OVIDUCT(S) AT SURGERY Outpatient Medications Marked as Taking for the 03/11/23 encounter (Office Visit) with Charlene York CRNP Medication Sig Calcium 600-10 MG-MCG Oral Tablet Chewable Take by mouth 2 times a day. Orencia 250 MG Intravenous Solution Reconstituted (Abatacept) Administer intravenously. Methotrexate 2.5 MG Oral Tablet Take by mouth once a week. 6 tablets once a week MOBIC 7.5 MG PO TABS One pill by mouth once a day for pain as needed FOLIC ACID 1 MG OR TABS 1 TABLET DAILY Review of patient's allergies indicates: No Known Allergies Most Recent Immunizations Administered Date(s) Administered COVID-19 mRNA, LNP-s, No Preserve, 2-Dose Series (Moderna) 06/04/2020 Seasonal Influenza, Split, IIV3, With Preserve, Inj 01/20/2006 Review of Systems: Review of Systems Constitutional: Negative for fatigue. Respiratory: Negative for shortness of breath. Cardiovascular: Negative for chest pain and palpitations. Gastrointestinal: Negative for abdominal pain, blood in stool, constipation and diarrhea. Genitourinary: POST MENOPAUSAL Musculoskeletal: Positive for arthralgias. Negative for joint swelling. Skin: Negative for rash. Neurological: Negative for dizziness and syncope. Psychiatric/Behavioral: Negative for dysphoric mood and sleep disturbance. The patient is not nervous/anxious. Physical Exam: BP 110/62 | Pulse 79 | Resp 16 | Ht 1.702 m (5' 7") | Wt 63.1 kg (139 lb 3.2 oz) | SpO2 99% | BMI 21.80 kg/m | BSA 1.73 m Physical Exam HENT: Head: Normocephalic. Right Ear: Tympanic membrane normal. Left Ear: Tympanic membrane normal. Nose: Nose normal. Mouth/Throat: Mouth: Mucous membranes are moist. Eyes: Pupils: Pupils are equal, round, and reactive to light. Cardiovascular: Rate and Rhythm: Normal rate and regular rhythm. Pulmonary: Effort: Pulmonary effort is normal. Breath sounds: Normal breath sounds. Abdominal: General: Bowel sounds are normal. Palpations: Abdomen is soft. Tenderness: There is no abdominal tenderness. Musculoskeletal: General: Normal range of motion. Cervical back: Normal range of motion. Comments: RA feature in hand joints Neurological: General: No focal deficit present. Mental Status: She is alert and oriented to person, place, and time. Psychiatric: Mood and Affect: Mood normal. Behavior: Behavior normal. Thought Content: Thought content normal. Judgment: Judgment normal. Assessment and Plan: 1. Rheumatoid arthritis, involving unspecified site, unspecified whether rheumatoid factor present (HCC) Managed by [facility] On chronic methotrexate On Orencia 2. 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 3. SPINAL STENOSIS-LUMBAR 4. Age related osteoporosis, unspecified pathological fracture presence 5. Screening for lipid disorders - LIPID PANEL WITH DIRECT LDL IF TG IS HIGH; Future 6. Screening for diabetes mellitus - BASIC METABOLIC PANEL; Future 7. Need for ckuyaxtfbx-wkypvfi-jruogaakw (Tdap) vaccine - TDAP (AGE 10 AND OLDER)(BOOSTRIX) 8. Abrasion of left hand, initial encounter Right arm - TDAP (AGE 10 AND OLDER)(BOOSTRIX) I have advised the patient to call our office incase of any worsening or new symptoms. I spent a total of 40-54 minutes (exact time 45 mins) on the date of service in preparation, delivery, and documentation of the care provided to Sue Rivas excluding any time spent in the performance of separately billed services. Dea, KUNAL, DIMITRIOS [facility] documented in this encounter Nursing Notes * Romana Loza MED ASSIST - 03/11/2023 1:59 PM EST The patient has been properly identified by confirmation of name and date of . Chief Complaint Patient presents with NEW PATIENT Patient presents in office as a new patient to re-establish care (has not been seen in quite sometime) documented in this encounter Plan of Treatment Pending Results Name Type Priority Associated Diagnoses Date /Time LIPID PANEL WITH DIRECT LDL IF TG IS HIGH Lab Routine Screening for lipid disorders 03/11/2023 3:04 PM EST BASIC METABOLIC PANEL Lab Routine Screening for diabetes mellitus 03/11/2023 3:04 PM EST Scheduled Orders Name Type Priority Associated Diagnoses Orde r Schedule LIPID PANEL WITH DIRECT LDL IF TG IS HIGH Lab Routine Screening for lipid disorders Expected: 03/11/2023, Expires: 03/11/2024 BASIC METABOLIC PANEL Lab Routine Screening for diabetes mellitus Expected: 03/11/2023 (Approximate), Expires: 03/10/2024 Health Maintenance Due Date Last Done Comments DXA Scan 1950 Lipid Panel 1950 Pneumococcal Vaccine: 65+ Years (1 - PCV) 06/16/1957 Depression Screening 1963 Hepatitis C Screening 06/16/1969 Zoster Vaccines (1 of 2) 06/16/1970 Mammogram 1991 Cologuard 06/16/1996 Colonoscopy 06/16/1996 Colorectal Cancer Screening 06/16/1996 Fecal Occult Blood Test 06/16/1996 Sigmoidoscopy 06/16/1996 Influenza Vaccine (FLU shot) (#1) 2022 12/15/2013, 03/23/2013, 01/20/2006, Additional history exists COVID-19 Vaccine ( season) 2023 02/03/2023, 06/04/2020, 05/03/2020 DTaP,Tdap,and Td Vaccines (3 - Td or [...] as of this encounter Visit Diagnoses Diagnosis Rheumatoid arthritis, involving unspecified site, unspecified whether rheumatoid factor present (HCC)- Primary 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 Osteoarthrosis involving, or with mention of more than one site, but not specified as generalized, site unspecified SPINAL STENOSIS-LUMBAR Spinal stenosis, lumbar region, without neurogenic claudication Age related osteoporosis, unspecified pathological fracture presence Screening for lipid disorders Screening for diabetes mellitus Need for csaootwlhy-jefnetb-flxylbhki (Tdap) vaccine Need for prophylactic vaccination with combined ejeebrjoci-zaltgvn-vdsudujbu (DTP) vaccine Abrasion of left hand, initial encounter documented in this encounter Care Teams Mine Engineering Supervisor Relationship Specialty Start Date End Date Charlene York CRNP [address] [place] [address] PCP - General Nurse Practitioner 03/11/23 documented as of this encounter
--- OUTSIDE RECORDS SUMMARY | 2023-07-21 02:22 | External Medical Summary | Summary of Care ---
Author Name Unknown Organization [facility] Address [address] [place] [address] Phone [phone] Care Team Providers Care Metal Technician Name Role Phone Charlene York Primary Care Provider Reason for Visit * Reason Onset Date Comments Health Maintenance 04/06/2023 Encounter Details Date Type Department Care Team (Late st Contact Info) Description 04/06/2023 Telephone Family Practice [facility] [address] [place] [address] Charlene York CRNP [address] [place] [address] Health Maintenance Allergies No known active allergiesdocumented as of this encounter (statuses as of 04/06/2023) Medications Medication Sig Dispensed Refills Start Date [...] as of this encounter (statuses as of 04/06/2023) Active Problems Problem Noted Date Diagnosed Date SPINAL STENOSIS-LUMBAR 08/29/2004 ADVANCE DIRECTIVE INFORMATION 07/12/2004 Overview: Pt stated she will bring in a copy of her Living Will Arthritis, 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/09/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 05/09/2004 documented as of this encounter (statuses as of 04/06/2023) Resolved Problems Problem Noted Date Diagnosed Date Resolved Date Impacted cerumen 03/11/2023 Otitis media 03/11/2023 documented as of this encounter (statuses as of 04/06/2023) Immunizations Name Administration Dates Next Due SARS-COV-2 [...] encounter Miscellaneous Notes * Addendum Note - Melba Dominguez LPN - 04/06/2023 12:44 PM ESTAddended by: MELBA DOMINGUEZ on: 04/06/2023 12:44 PM Modules accepted: Orders * Telephone Encounter - Melba Dominguez LPN - 04/06/2023 12:43 PM EST Spoke to patient. Mammogram ordered. Dexa done at [facility] will request * Telephone Encounter - Melba Dominguez LPN - 04/06/2023 9:13 AM EST Care Gaps Comprehensive Care Outreach Last Office/Telemedicine Visit: 03/11/2023 (in office), Visit date not found (telemedicine) Next Office Visit: Visit date not found Hemoglobin AIC Results: No results found for: "HEMOGLOBIN A1C" BP Readings from Last 1 Encounters: 03/11/23 110/62 Reviewed Health Maintenance below: Health Maintenance Topic Date Due DXA Scan Never done Pneumococcal Vaccine: 65+ Years (1 - PCV) Never done Depression Screening Never done Hepatitis C Screening Never done Zoster Vaccines (1 of 2) Never done Mammogram Never done Colorectal Cancer Screening Never done Ov Dexa Mamm colon Care Gap Outreach Action Taken: Left message documented in this encounter Plan of Treatment Upcoming Encounters Date Type Department Care Team (Late st Contact Info) Description 04/14/2023 8:30 AM EST Imaging Radiology [address] [place] [address] Scheduled Orders Name Type Priority Associated Diagnoses Orde r Schedule MAMMOGRAM SCREENING JOSE BILATERAL Medical Imaging Routine Encounter for screening mammogram for malignant neoplasm of breast Expected: 04/06/2023, Expires: 05/04/2024 Health Maintenance Due Date Last Done Comments [...] ( - season) 2023 02/03/2023, 06/04/2020, 05/03/2020 Lipid Panel [...] as of this encounter Visit Diagnoses Diagnosis Encounter for screening mammogram for malignant neoplasm of breast- Primary Other screening mammogram documented in this encounter Care Teams Metal Technician Relationship Specialty Start Date End Date Charlene York CRNP [address] [place] [address] PCP - General Nurse Practitioner 03/11/23 documented as of this encounter
--- OUTSIDE RECORDS SUMMARY | 2023-07-21 02:22 | External Medical Summary ---
Author Name Unknown Address Unknown Organization [id number]:[facility] [place] [address] [facility] [address] Laboratory Report Ordering Provider Test Date Status UMM,RHED 03/11/2023 15:04:46 Final Observation Date Value Abnormality Reference (Units ) Status Triglyceride 03/11/2023 15:04:46 56 <=174 ( mg/dL) Final Triglyceride Reference Range s (mg/dL):
<150 Acceptable
150-174 Borderline high
175-499 High
>=500 Very high Cholesterol 03/11/2023 15:04:46 196 <200 (mg /dL) Final Total Cholesterol Reference Ranges (mg/dL):
<200 Desirable
200-239 Borderline high
>=240 High HDL 03/11/2023 15:04:46 106 >49 (mg/dL ) Final HDL Cholesterol Reference Ra nges (mg/dL):
>=60 High (Desirable)
<50 Low (Undesirable) For Females
<40 Low (Undesirable) For Males NON-HDL CHOLESTEROL 03/11/2023 15:04:46 90 <=159 (mg/dL) Final Non-HDL Cholesterol Referenc e Range (mg/dL):
<100 Target level for high risk ASCVD patient
<130 Optimal for general population
130-159 Near optimal for general population
160-189 Borderline High
190-219 High
>=220 Very High LDL, (calculated) 03/11/2023 15:04:46 79 <= 129 (mg/dL) Final LDL Cholesterol Reference Ra nges (mg/dL):
<70 Target level for high risk ASCVD patient
<100 Optimal for general population
100-129 Near optimal for general population
130-159 Borderline high
160-189 High
>=190 Very high Performing Location [facility] [place] [address] [facility] [address]
--- OUTSIDE RECORDS SUMMARY | 2023-07-21 02:22 | External Medical Summary | Summary of Care ---
Author Name Unknown Organization [facility] Address [address] [place] [address] Phone [phone] Care Team Providers Care International Logistics Coordinator Name Role Phone Unavailable Primary Care Provider Unavailabl e Reason for Visit * Reason Comments Diamond Selector New Encounter Details Date Type Department Care Team (Late st Contact Info) Description 02/11/2023 2:30 PM EST Office Visit Gynecology/Obstetric s Merlin Medeiros [address] [place] [address] Nicole Hammond PA-C [address] [place] [address] Dysuria*; Vaginal burning; Postmenopausal atrophic vaginitis; Hematuria, [...] she urinates. Chief Complaint Patient presents with Diamond Selector New HPI: 72 year old with vaginal [...] Date LAPAROSCOPY; CHOLECYSTECTOMY 12/01/2007 Dr Bergeron at [facility] Family History Problem Relation Age of [...] moderate 1+ protein - nitrites + leukocytes Building Operator Documentation Provider requested professional healthcare representative. Name of professional healthcare representative: DARLINE ByrdCAREER PLACEMENT SPECIALIST/PLAN: Dysuria (Primary) Will treat given symptomatic and [...] in this encounter Plan of Treatment Scheduled Orders Name Type Priority Associated Diagnoses Orde r Schedule CULTURE, URINE, QUANTITATIVE Lab Routine Dysuria Ordered: 02/11/2023 VAGINOSIS PANEL, PCR Lab Routine Vaginal burning [...] Negative Ketone, Urine Negative Negative mg/dL Specific [place], Urine 1.025 1.003 - 1.030 Blood, Urine Moderate Negative pH, Urine 5.5 5.0 - 7.5 units Protein, Urine 30 Negative mg/dL Urobilinogen, Urine 0.2 0.2 - 1.0 mg/dL Nitrite, Urine Negative Negative Esterase, Urine Moderate Negative Urine 02/11/2023 Nicole Hammond PA-C LAB POINT OF CARE TE ST ENTER/EDIT ORDERABLES documented in this encounter Visit Diagnoses Diagnosis Dysuria- Primary Vaginal burning Other specified symptom associated with female genital organs Postmenopausal atrophic vaginitis Hematuria, microscopic Microscopic hematuria documented in this encounter
--- OUTSIDE RECORDS SUMMARY | 2023-07-21 02:22 | External Medical Summary | Summary of Care ---
Author Name Unknown Organization [facility] Address [address] [place] [address] Phone [phone] Care Team Providers Care Correction Warden Name Role Phone Charlene York Primary Care Provider Reason for Visit * Reason Onset Date Comments Health Maintenance 04/06/2023 Encounter Details Date Type Department Care Team (Late st Contact Info) Description 04/06/2023 Telephone Family Practice [facility] [address] [place] [...] encounter Miscellaneous Notes * Telephone Encounter - Melba Dominguez LPN [...] filedocumented as of this encounter Care Teams Correction Warden Relationship Specialty Start Date End Date Charlene York CRNP [address] [place] [address] PCP - General Nurse Practitioner 03/11/23 documented as of this encounter
--- OUTSIDE RECORDS SUMMARY | 2023-07-21 02:22 | External Medical Summary ---
Author Name Unknown Address Unknown Organization [id number]:[facility] [place] [facility] - [address] [place] [address] Laboratory Report Ordering Provider Test Date Status MUSA SALOMON 03/11/2023 15:04:46 Final Observation Date Value Abnormality Reference (Units ) Status BUN 03/11/2023 15:04:46 17 6-20 (mg/dL) Final Creatinine 03/11/2023 15:04:46 0.8 0.5-1.0 (mg/dL) Final Glomerular filtration rate/1.73 sq M.predicted [Volume Rate/Area] in Serum, Plasma or Blood by Creatinine-based formula (CKD-EPI) 03/11/2023 15:04:46 74 >=60 (mL/min) Final eGFR is calculated based on the CKD-EPI 2020 equation SODIUM 03/11/2023 15:04:46 139 135-146 (m mol/L) Final Potassium 03/11/2023 15:04:46 4.1 3.5-5.1 (m mol/L) Final Cl 03/11/2023 15:04:46 101 98-107 (mm ol/L) Final CO2 03/11/2023 15:04:46 27 22-32 (mmo l/L) Final Anion gap 03/11/2023 15:04:46 11 7-15 (mmol /L) Final Glucose 03/11/2023 15:04:46 89 70-120 (mg /dL) Final Calcium 03/11/2023 15:04:46 9.9 8.4-10.2 ( mg/dL) Final Performing Location [facility] [place] [facility] - [address] [place] [address]
--- OUTSIDE RECORDS SUMMARY | 2023-07-21 02:22 | External Medical Summary | Summary of Care ---
Author Name Unknown Organization [facility] Address [address] [place] [address] Phone [phone] Care Team Providers Care Manager Social Responsibility Name Role Phone Charlene York Primary Care Provider Reason for Visit * Reason Comments Outpatient Testing Encounter Details Date Type Department Care Team (Late st Contact Info) Description 03/11/2023 3:00 PM EST Laboratory Laboratory, [facility] [address] [facility] [place] [address] [facility] [address] [facility] [place] [address] Screening for lipid disorders; Screening for diabetes mellitus Allergies No known active allergiesdocumented as of [...] as of this encounter Plan of Treatment Pending Results Name Type Priority Associated Diagnoses Date /Time LIPID PANEL WITH DIRECT LDL IF TG IS HIGH Lab Routine Screening for lipid disorders 03/11/2023 3:04 PM EST BASIC METABOLIC PANEL Lab Routine Screening for diabetes mellitus 03/11/2023 3:04 PM EST Health Maintenance Due Date Last Done Comments [...] as of this encounter Visit Diagnoses Diagnosis Screening for lipid disorders Screening for diabetes mellitus documented in this encounter Care Teams Manager Social Responsibility Relationship Specialty Start Date End Date Charlene York CRNP [address] [place] [address] PCP - General Nurse Practitioner 03/11/23 documented as of this encounter
--- OUTSIDE RECORDS SUMMARY | 2023-07-21 02:22 | External Medical Summary | Summary of Care ---
Author Name Unknown Organization [facility] Address [address] [facility] [place] [address] Phone [phone] Care Team Providers Care Plant Operator Name Role Phone Charlene York Primary Care Provider Encounter Details Date Type Department Care Team (Late st Contact Info) Description 02/13/2023 Telephone Gynecology/Obstetrics Merlin Medeiros [address] [place] [address] Nicole Hammond PA-C [address] [place] [address] Allergies No known active allergiesdocumented as of this encounter (statuses as of 03/13/2023) Medications Medication Sig Dispensed Refills Start Date End Date Status FOLIC ACID 1 MG OR TABS 1 TABLET DAILY 0 0 04/15/2004 Active MOBIC 7.5 MG PO TABS One pill by mouth once a day for pain as needed 0 10/05/2007 Active Methotrexate 2.5 MG Oral Tablet Take by mouth once a week. 6 tablets once a week 0 Active documented as of this encounter (statuses as of 03/13/2023) Active Problems Problem Noted Date Diagnosed Date SPINAL STENOSIS-LUMBAR 08/29/2004 ADVANCE DIRECTIVE INFORMATION 07/12/2004 Overview: Pt stated she will bring in a copy of her Living Will Arthritis, 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/09/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 05/09/2004 documented as of this encounter (statuses as of 03/13/2023) Resolved Problems Problem Noted Date Diagnosed Date Resolved Date Impacted cerumen 03/11/2023 Otitis media 03/11/2023 documented as of this encounter (statuses as of 03/13/2023) Immunizations Name Administration Dates Next Due SARS-COV-2 (COVID-19) Vaccine Unspecified 2022 Seasonal Influenza Virus Vac cine, Unspecified Formulation 12/15/2013,03/23/2013,01/20/2006 Seasonal Influenza, Split, I IV3, With Preserve, Inj 01/20/2006 TDAP (age 11 and older)(Adacel) 06/30/2012 documented [...] encounter Miscellaneous Notes * Telephone Encounter - Rocio Rhodes LPN - 02/13/2023 12:45 PM EST Spoke to pt and reviewed message below. Pt verbalized understanding * Telephone Encounter - Nicole Hammond PA-C - 02/13/2023 12:21 PM EST Please let her know that urine culture came back positive for UTI. Her vaginal swab was negative for infection. The antibiotic sent should treat this infection -- if continued burning when she urinates following treatment would recommend primary care. documented in this encounter Plan of Treatment [...] as of this encounter Care Teams Plant Operator Relationship Specialty Start Date End Date Charlene York CRNP [address] [place] [address] PCP - General Nurse Practitioner 03/11/23 documented as of this encounter
[2023-07-21] MEDS: diphenhydrAMINE 50 MG/ML VIAL IV STA (02:54)
[2023-07-21] MEDS: PROCHLORPERAZINE 1 ML IV ONE (02:54)
[2023-07-21] MEDS: FAMOTIDINE 20MG IV PUSH 20 MG/5 ML SYR IV STA (02:54)
[2023-07-21] MEDS: ACETAMINOPHEN 1,000 MG/100 ML VIAL IV STA ×2 (02:54→06:53)
[2023-07-21] MEDS: SODIUM CHLORIDE 0.9% 1,000 ML IV ONE (02:55)
--- NOTE | 2023-07-21 02:58 | Emergency Department Note ---
Impression & Plan Abdominal pain, Nausea & vomiting, Leukocytosis, Elevated troponin ED Provider Note ED Provider Note NAME: DANIEL GILBERT AGE:73 SEX: Female : 1950 ARRIVES VIA: Private vehicle INFORMANT: Patient ED PROVIDER(s): Isabela Andres DO CHIEF COMPLAINT: Abdominal pain, nausea and vomiting HPI: This is a 73-year-old female who presents emergency department due to concern for abdominal pain, nausea and vomiting. Patient states symptoms began on Thursday of last week, 48 hours after she received her first chemotherapy infusion for breast cancer. Patient's oncologist is Dr. Sharif with [facility]. She states she felt well prior to the infusion. No history of GI problems. She states she has been having frequent diarrhea, denies any melena or hematochezia. She states she has had a lot of nausea and dry heaving. She states she did return to the office on Thursday and did receive IV fluids due to concern for dehydration due to persistent GI symptoms. She denies fevers or chills. She states the abdominal pain gets worse before she has to have diarrhea and is briefly improved following an episode of diarrhea however seems to otherwise be constant. Pain is otherwise nonradiating. She denies any abdominal distention. PAST MEDICAL HISTORY:See Below PAST SURGICAL HISTORY:See Below FAMILY HISTORY:See Below SOCIAL HISTORY:See Below HOME MEDICATIONS:See Below ALLERGIES:See Below VITALS:See Below PHYSICAL EXAMINATION: GENERAL: alert, well appearing, well nourished, no distress, non-toxic EYE EXAM: normal conjunctiva, PERRL and EOM's grossly intact OROPHARYNX: no exudate, no erythema, lips, buccal mucosa, and tongue normal and mucous membranes are dry NECK: supple, no nuchal rigidity, no adenopathy, non-tender LUNGS: Clear to auscultation. Normal chest wall mechanics, no w/r/r HEART: no murmurs, S1 normal and S2 normal ABDOMEN: abdomen soft, non-tender, normo-active bowel sounds, no masses, no rebound or guarding. BACK: Back is symmetrical on inspection and there is no deformity, no midline tenderness, no CVA tenderness. SKIN: no rashes, petechiae, orbruising UPPER EXTREMITIES: upper extremities are grossly normal. FROM, nml pulses b/l. LOWER EXTREMITIES: No pitting edema. FROM, nml pulses b/l. NEURO EXAM: Normal sensorium, cranial nerves II-XII grossly intact, normal speech, no facial droop,nogross weakness of arms, no gross weakness of legs. Gross sensation intact. No ataxia. Vital Signs: reviewed and remarkable Differential Diagnosis: Chemotherapy ADR, viral syndrome, neutropenia, dehydration, ALLISON, typhlitis, bowel obstruction, colitis, mesenteric ischemia, as well as others were considered MEDICAL DECISION MAKING: This is a 73-year-old female presents emerged from due to concern for abdominal pain, nausea, vomiting, and diarrhea which began several days ago. Patient did start chemotherapy last week due to breast cancer. Patient afebrile and vital signs stable, she was noted to have mild tachycardia although given clinical dehydration, this was thought to be from volume depletion with her GI symptoms. Labs drawn and sent, IV established, EKG performed at bedside interpreted me and patient monitored on telemetry. She was started on IV fluids and given IV Tylenol, IV Pepcid, and IV Compazine. Patient given 2 L of IV fluid and did report feeling some improvement. She was then given oral Bentyl, and allowed to start trying things by mouth. Given leukocytosis noted on labs, she was sent for CT of the abdomen and pelvis. Possible colitis noted on CT, also incidentally a fat-containing hernia as well which patient was already aware of. As patient was improving and had been hydrated, we rechecked CBC as well as troponin which was borderline elevated as well although patient had no complaints of chest pain and had no EKG changes. Patient's repeat labs were still markedly elevated. Due to concern for immunosuppression from chemotherapy, colitis findings on CT, significant leukocytosis, blood cultures and procalcitonin added and patient given IV antibiotics. Case discussed with the hospitalist team for additional evaluation and management. Consultation(s): 0735: Discussed with Dr. Vinson, [facility] hospitalist team, for additional evaluation. ER Treatment Provided: See below Diagnostics Interpreted By Me: -ECG: Normal sinus at 89, normal axis, normal intervals, no acute ST/T wave changes -Cardiac Monitoring: An order was placed for continuous cardiac monitoring. The monitor shows a rate of 102 with sinus tachycardia rhythm. -Laboratory studies: As stated above and show below. -Imaging studies: CT a/p - no perf, no sbo Triage Nursing Note Reviewed Prior/Outside Records Reviewed Past Med/Surg History Problem List (Updated 07/22/23 @ 06:53 by Isabela Andres DO) Elevated troponin (Acute) Leukocytosis (Acute) Nausea & vomiting Abdominal pain (Acute) Medical History (Updated 07/22/23 @ 06:53 by Isabela Andres DO) Rheumatoid arthritis Osteoarthrosis Malignant neoplasm of breast (female) Surgical History (Updated 07/21/23 @ 18:00 by Nisha Vinson MD) S/P cholecystectomy History of insertion of tunneled central venous catheter (CVC) with port Family History (Updated 07/21/23 @ 18:01 by Nisha Vinson MD) Other Cancer Coronary heart disease Heart disease Hypertension Social History Smoking Status: Never smoker Hx Alcohol Use: No Hx Substance Use: No Preferred Language: Brazilian Communication Ability: Effective Senior Net Web Developer Required: No Beliefs That Will Affect Care: None Current Living Situation: Spouse Other Information That Helps Us Care for You: No Feels Safe at Home: Yes Safety Concerns: Feels Safe At This Time Assistive Devices: None Allergies Allergies Allergy/AdvReac Type Severity Reaction Status Date / Time No Known Allergies Allergy Unverified 07/21/23 09:01 Home Meds Home Medications Medication Instructions Recorded Confirmed Chemo Treatment 07/21/23 calcium carbonate (Calcium 600) 600 mg PO BID 07/21/23 07/21/23 dexamethasone 4 mg tablet 4 mg PO DIRECTED 07/21/23 07/21/23 folic acid 1 mg tablet 1 mg PO DAILY 07/21/23 07/21/23 ondansetron HCl 8 mg tablet 8 mg PO DIRECTED 07/21/23 07/21/23 prochlorperazine maleate 10 mg 10 mg PO Q6H 07/21/23 07/21/23 tablet Results & Data (ED) Vital Signs Vital Signs - 24 hr 07/21/23 07:05 07/21/23 07:30 07/21/23 07:30 Pulse Rate 108 H 83 Pulse Rate from SpO2 Sensor 108 H 78 Respiratory Rate 12 22 Blood Pressure 113/62 Blood Pressure Mean 77 Pulse Oximetry 96 97 Laboratory Data 07/22/23 05:53 07/22/23 05:53 Lab Results 07/21/23 07/21/23 07/21/23 Range/Units 02:27 04:50 05:36 WBC 19.13 H (4.8-10.8) K/ul RBC 5.06 (4.20-5.40) M/uL Hgb 15.3 (12.0-16.0) g/dl Hct 44.8 (37.0-47.0) % MCV 88.5 (80.0-100.0) fL MCH 30.2 (25.0-34.0) pg MCHC 34.2 (32.0-36.0) g/dL RDW Std Deviation 40.9 (36.4-46.3) fL RDW Coeff of Vitaly 12.7 (11.5-14.5) % Plt Count 156 (130-400) K/uL MPV 10.3 (9.4-12.4) fL Absolute Nucleated RBC 0.02 (0.00-0.12) K/uL Nucleated RBC % (auto) 0.1 % Neutrophils % (Manual) 71 % Lymphocytes % (Manual) 16 % Monocytes % (Manual) 3 % Eosinophils % (Manual) 1 % Metamyelocytes % (Man) 3 % Myelocytes % (Man) 6 % Promyelocytes % (Man) % Blast Cells % (Manual) % Neutrophils # (Manual) 13.58 H (1.40-6.50) K/uL Total Absolute Neuts 13.58 H (1.4-6.5) K/uL Lymphocytes # (Manual) 3.06 (1.2-3.4) K/uL Total Abs Lymphocytes 3.06 (1.2-3.4) K/uL Monocytes # (Manual) 0.57 (0.11-0.59) K/uL Eosinophils # (Manual) 0.19 (0-0.50) K/uL Metamyelocytes # (Man) 0.57 H (0-0) K/uL Myelocytes # (Manual) 1.15 H (0-0) K/uL Promyelocytes # (Man) (0-0) K/uL Blast Cells # (Man) (0-0) K/uL Blood Smear Review Toxic Granulation 1+ Dohle Bodies 1+ Polychromasia 1+ PT 10.8 (9.0-12.0) Seconds INR 1.0 (0.9-1.1) Sodium 136 (136-145) mmol/L Potassium 3.6 (3.5-5.1) mmol/L Chloride 98 (98-107) mmol/L Carbon Dioxide 28 (21-32) mmol/L Anion Gap 10 (3-11) BUN 17 (6-23) mg/dl Creatinine 1.03 (0.6-1.2) mg/dl Est Cr Clr Drug Dosing 46.2 ml/min Est GFR ( Amer) 62.9 ml/min Est GFR (Non-Af Amer) 54.3 ml/min BUN/Creatinine Ratio 16.5 (10-20) Glucose 105 H (70-99(Fasting)) mg/dl Lactate 0.9 (0.4-2.0) mmol/L Calcium 9.2 (8.6-10.3) mg/dl Magnesium 1.9 (1.7-2.4) mg/dl Total Bilirubin 0.4 (0.2-1.0) mg/dl AST 25 (13-39) U/L ALT 41 (7-52) U/L Alkaline Phosphatase 108 H (34-104) U/L Troponin I High Sens 21.0 H (0-14) pg/ml Total Protein 6.9 (6.0-8.3) gm/dl Albumin 4.0 (3.4-5.0) gm/dl Globulin 2.9 (2.5-4.0) gm/dl Albumin/Globulin Ratio 1.4 (0.9-2) Lipase 14 (11-82) U/L Procalcitonin 0.07 (0-0.5) ng/ml Urine Color Yellow Urine Appearance Clear (Clear) Urine pH 5.5 (4.5-7.5) Ur Specific [place] > 1.045 H (1.000-1.030) Urine Protein Trace H (Negative) Urine Glucose (UA) Negative (Negative) Urine Ketones 2+ H (Negative) Urine Blood Negative (Negative) Urine Nitrite Negative (Negative) Urine Bilirubin Negative (Negative) Urine Urobilinogen Negative (Negative) Ur Leukocyte Esterase Negative (Negative) Urine WBC (Auto) 0-5 (0-5) /hpf Urine RBC (Auto) 0-2 (0-2) /hpf U Hyaline Cast (Auto) 0-2 (0-2) /lpf U Epithel Cells (Auto) 0-2 (0-2) /hpf Urine Bacteria (Auto) None Seen (None Seen) 07/21/23 Range/Units 05:44 WBC 19.05 H (4.8-10.8) K/ul RBC 4.41 (4.20-5.40) M/uL Hgb 13.1 (12.0-16.0) g/dl Hct 39.6 (37.0-47.0) % MCV 89.8 (80.0-100.0) fL MCH 29.7 (25.0-34.0) pg MCHC 33.1 (32.0-36.0) g/dL RDW Std Deviation 41.1 (36.4-46.3) fL RDW Coeff of Vitaly 12.5 (11.5-14.5) % Plt Count 140 (130-400) K/uL MPV 10.5 (9.4-12.4) fL Absolute Nucleated RBC (0.00-0.12) K/uL Nucleated RBC % (auto) % Neutrophils % (Manual) 66 % Lymphocytes % (Manual) 16 % Monocytes % (Manual) 5 % Eosinophils % (Manual) % Metamyelocytes % (Man) 8 % Myelocytes % (Man) 3 % Promyelocytes % (Man) 1 % Blast Cells % (Manual) 1 % Neutrophils # (Manual) 12.57 H (1.40-6.50) K/uL Total Absolute Neuts 12.57 H (1.4-6.5) K/uL Lymphocytes # (Manual) 3.05 (1.2-3.4) K/uL Total Abs Lymphocytes 3.05 (1.2-3.4) K/uL Monocytes # (Manual) 0.95 H (0.11-0.59) K/uL Eosinophils # (Manual) (0-0.50) K/uL Metamyelocytes # (Man) 1.52 H (0-0) K/uL Myelocytes # (Manual) 0.57 H (0-0) K/uL Promyelocytes # (Man) 0.19 H (0-0) K/uL Blast Cells # (Man) 0.19 H (0-0) K/uL Blood Smear Review Toxic Granulation Dohle Bodies Polychromasia PT (9.0-12.0) Seconds INR (0.9-1.1) Sodium (136-145) mmol/L Potassium (3.5-5.1) mmol/L Chloride (98-107) mmol/L Carbon Dioxide (21-32) mmol/L Anion Gap (3-11) BUN (6-23) mg/dl Creatinine (0.6-1.2) mg/dl Est Cr Clr Drug Dosing ml/min Est GFR ( Amer) ml/min Est GFR (Non-Af Amer) ml/min BUN/Creatinine Ratio (10-20) Glucose (70-99(Fasting)) mg/dl Lactate (0.4-2.0) mmol/L Calcium (8.6-10.3) mg/dl Magnesium (1.7-2.4) mg/dl Total Bilirubin (0.2-1.0) mg/dl AST (13-39) U/L ALT (7-52) U/L Alkaline Phosphatase (34-104) U/L Troponin I High Sens 28.4 H (0-14) pg/ml Total Protein (6.0-8.3) gm/dl Albumin (3.4-5.0) gm/dl Globulin (2.5-4.0) gm/dl Albumin/Globulin Ratio (0.9-2) Lipase (11-82) U/L Procalcitonin (0-0.5) ng/ml Urine Color Urine Appearance (Clear) Urine pH (4.5-7.5) Ur Specific [place] (1.000-1.030) Urine Protein (Negative) Urine Glucose (UA) (Negative) Urine Ketones (Negative) Urine Blood (Negative) Urine Nitrite (Negative) Urine Bilirubin (Negative) Urine Urobilinogen (Negative) Ur Leukocyte Esterase (Negative) Urine WBC (Auto) (0-5) /hpf Urine RBC (Auto) (0-2) /hpf U Hyaline Cast (Auto) (0-2) /lpf U Epithel Cells (Auto) (0-2) /hpf Urine Bacteria (Auto) (None Seen) Administered Medications Enoxaparin Sodium (Enoxaparin Inj 40 Mg/0.4 Ml Syr) 40 mg SQ Q24H DANIEL Stop: 08/20/23 10:59 Last Admin: 07/21/23 11:34 Dose: 40 mg Documented By: NATE Sodium Chloride (Nss) 1,000 mls @ 125 mls/hr IV .Q8H DANIEL Stop: 08/20/23 03:59 Last Admin: 07/22/23 05:01 Dose: 125 mls/hr Documented By: Infusion: 07/22/23 04:54 Dose: Infused Documented By: Admin: 07/21/23 20:46 Dose: 125 mls/hr Documented By: Infusion: 07/21/23 20:46 Dose: Infused Documented By: Admin: 07/21/23 12:00 Dose: 125 mls/hr Documented By: Infusion: 07/21/23 11:34 Dose: Infused Documented By: Infusion: 07/21/23 06:16 Dose: Infused Documented By: Infusion: 07/21/23 05:13 Dose: 999 mls/hr Documented By: Admin: 07/21/23 04:18 Dose: 125 mls/hr Documented By: JAMIE Prochlorperazine 5 mg/ Syringe 5 mls @ 5 mls/min IV Q6H PRN PRN Reason: Nausea And Vomiting Stop: 08/20/23 07:41 Last Admin: 07/21/23 16:01 Dose: 5 mls/min Documented By: NATE Olanzapine (Olanzapine Zydis 5 Mg Orally Dis. Tab) 2.[address] [facility] Stop: 08/20/23 20:59 Last Admin: 07/21/23 21:20 Dose: 2.5 mg Documented By: JADYN Discontinued Medications Dicyclomine HCl (Dicyclomine Hcl 10 Mg Cap) 10 mg PO NOW ONE Stop: 07/21/23 03:55 Last Admin: 07/21/23 04:18 Dose: 10 mg Documented By: JAMIE Diphenhydramine HCl (Diphenhydramine 50 Mg/Ml Vial) 12.5 mg IV NOW STA Stop: 07/21/23 02:44 Last Admin: 07/21/23 02:54 Dose: 12.5 mg Documented By: JAMIE Sodium Chloride (Nss) 1,000 mls @ 999 mls/hr IV .Q1H1M ONE Stop: 07/21/23 03:43 Last Infusion: 07/21/23 03:57 Dose: Infused Documented By: Admin: 07/21/23 02:55 Dose: 999 mls/hr Documented By: JAMIE Famotidine (Pepcid 20mg Iv Push) 20 mg in 5 mls @ 2.5 mls/min IV NOW STA Stop: 07/21/23 02:44 Last Admin: 07/21/23 02:54 Dose: 2.5 mls/min Documented By: JAMIE Prochlorperazine (Compazine) 1 mls @ 1 mls/min IV ONE ONE Stop: 07/21/23 02:44 Last Admin: 07/21/23 02:54 Dose: 1 mls/min Documented By: JAMIE Acetaminophen (Ofirmev) 1,000 mg in 100 mls @ 400 mls/hr IV NOW STA Stop: 07/21/23 02:57 Last Infusion: 07/21/23 03:57 Dose: Infused Documented By: Admin: 07/21/23 02:54 Dose: 400 mls/hr Documented By: JAMIE Acetaminophen (Ofirmev) 1,000 mg in 100 mls @ 400 mls/hr IV NOW STA Stop: 07/21/23 07:02 Last Infusion: 07/21/23 09:45 Dose: Infused Documented By: Admin: 07/21/23 06:53 Dose: 400 mls/hr Documented By: JAMIE Cefepime HCl (Maxipime) 2,000 mg in 20 mls @ 5 mls/min IV NOW STA; Protocol Stop: 07/21/23 06:53 Last Admin: 07/21/23 06:53 Dose: 5 mls/min Documented By: JAMIE Dexamethasone 5 mg/ Syringe 1.25 mls @ 1 mls/min IV NOW STA Stop: 07/21/23 15:44 Last Admin: 07/21/23 16:49 Dose: 1 mls/min Documented By: NATE Ioversol (Optiray 320 100ml) 100 ml IV ONCE ONE Stop: 07/21/23 04:09 Last Admin: 07/21/23 04:08 Dose: 92 ml Documented By: TYSON Olanzapine (Olanzapine Zydis 5 Mg Orally Dis. Tab) 5 mg PO NOW STA Stop: 07/21/23 15:43 Last Admin: 07/21/23 16:49 Dose: 5 mg Documented By: NATE Imaging Data Radiologist's Impression: Abdomen/Pelvis CT 07/21/23 03:54 Exam(s): CT ABDOMEN + PELVIS With Contrast IV Amt: 92 ML OPTIRAY 320 EXAM: CT Abdomen and Pelvis With Intravenous Contrast CLINICAL HISTORY: Reason for exam: n/v/d, chemo pt. TECHNIQUE: Axial computed tomography images of the abdomen and pelvis with intravenous contrast. CTDI is 13.72 mGy and DLP is 600.91 mGy-cm. Automated exposure control was utilized for the study. A dose lowering technique was utilized adhering to the principles of ALARA. CONTRAST: Patient received 92 ML OPTIRAY 320 of IV contrast COMPARISON: No relevant prior studies available. FINDINGS: Limitations: Limited examination in the absence of clinical history. Type of neoplasm not provided. Recommend continued attention on follow- up imaging as dictated per patient's primary malignancy. Lung bases: Dependent scarring at the lung bases. No consolidation. ABDOMEN: Liver: Unremarkable. No mass. Gallbladder and bile ducts: Cholecystectomy changes. No ductal dilation. Pancreas: Unremarkable. No mass. No ductal dilation. Spleen: Unremarkable. No splenomegaly. Adrenals: Unremarkable. No mass. Kidneys and ureters: Unremarkable. No solid mass. No hydronephrosis. Stomach and bowel: Mild annular thickening of the colon extending from the splenic flexure. Findings may relate to underdistention. Colitis also possible. Consider correlation with laboratory values. No evidence of bowel obstruction. PELVIS: Appendix: Normal appendix. Bladder: Unremarkable. No mass. Reproductive: Calcifications in the uterus which may relate to a fibroid. ABDOMEN and PELVIS: Intraperitoneal space: Unremarkable. No free air. No significant fluid collection. Bones/joints: Degenerative changes in the spine. No acute fracture. No dislocation. Soft tissues: Midline fat and suspected omentum containing supraumbilical ventral hernia. Mild stranding noted. Consider correlation with point tenderness. Incarceration is not excluded. Vasculature: Atherosclerotic disease. No abdominal aortic aneurysm. Lymph nodes: Unremarkable. No enlarged lymph nodes. IMPRESSION: 1. Limited examination in the absence of clinical history. Type of neoplasm not provided. Recommend continued attention on follow-up imaging as dictated per patient's primary malignancy. 2. Midline fat and suspected omentum containing supraumbilical ventral hernia. Mild stranding noted. Consider correlation with point tenderness. Incarceration is not excluded. 3. Mild annular thickening of the colon extending from the splenic flexure. Findings may relate to underdistention. Colitis also possible. Consider correlation with laboratory values. 4. No evidence of bowel obstruction. 5. Normal appendix. Lasix. Other incidental findings as described. Electronically signed by: Cristofer Espinoza MD 07/21/23 04:27 AM Discharge Plan Visit Data Chief Complaint: Illness Stated Complaint: SICK FROM CHEMO ED Provider: Isabela Andres Discharge Problem: Abdominal pain, Nausea & vomiting, Leukocytosis, Elevated troponin Patient Disposition: Admitted As Inpatient Discharge Instructions Interventions: ED Discharge Assessment Last Done: 07/21/23 08:57
[2023-07-21 03:37] LABS: Albumin Globulin Ratio 1.4 (0.9-2); BUN Creatinine Ratio 16.5 (10-20); Bilirubin,Total 0.4 mg/dl (0.2-1.0); Calcium 9.2 mg/dl (8.6-10.3); Creatinine Clr Calc Pharmacy 46.2 ml/min; Est GFR (African American) 62.9 ml/min; Est GFR (Non-African American) 54.3 ml/min; Globulin 2.9 gm/dl (2.5-4.0); Magnesium 1.9 mg/dl (1.7-2.4); Potassium 3.6 mmol/L (3.5-5.1); Total Protein 6.9 gm/dl (6.0-8.3)
[2023-07-21 03:47] LABS: Prothrombin Time 10.8 Seconds (9.0-12.0)
[2023-07-21 03:53] LABS: ALC (manual) 3.06 K/uL (1.2-3.4); ANC (manual) 13.58 K/uL (1.4-6.5); Dohle Bodies 1+; Eosinophils # (manual) 0.19 K/uL (0-0.50); Eosinophils % (manual) 1 %; Hematocrit (blood only) 44.8 % (37.0-47.0); Hemoglobin 15.3 g/dl (12.0-16.0); Lymphocytes # (manual) 3.06 K/uL (1.2-3.4); Lymphocytes % (manual) 16 %; Mean Corpuscular Hemoglobin 30.2 pg (25.0-34.0); Mean Corpuscular Hgb Conc 34.2 g/dL (32.0-36.0); Mean Corpuscular Volume 88.5 fL (80.0-100.0); Mean Platelet Volume 10.3 fL (9.4-12.4); Metamyelocytes # (manual) 0.57 K/uL (0-0); Metamyelocytes % (manual) 3 %; Monocytes # (manual) 0.57 K/uL (0.11-0.59); Monocytes % (manual) 3 %; Myelocytes # (manual) 1.15 K/uL (0-0); Myelocytes % (manual) 6 %; Neutrophils # (manual) 13.58 K/uL (1.40-6.50); Neutrophils % (manual) 71 %; Nucleated RBC # (auto) 0.02 K/uL (0.00-0.12); Nucleated RBC % (auto) 0.1 %; Platelet Count 156 K/uL (130-400); Polychromasia 1+; RDW Coefficient of Variation 12.7 % (11.5-14.5); RDW Standard Deviation 40.9 fL (36.4-46.3); Red Blood Count 5.06 M/uL (4.20-5.40); Toxic Granulation 1+; White Blood Count 19.13 K/ul (4.8-10.8)
[2023-07-21] MEDS: OPTIRAY 320 100ml IV ONE (04:08)
[2023-07-21] MEDS: SODIUM CHLORIDE 0.9% 1,000 ML IV SCH (04:18)
[2023-07-21] MEDS: DICYCLOMINE HCL 10 MG CAP PO ONE (04:18)
--- NOTE | 2023-07-21 04:28 | CT Scan Report ---
Exam(s): CT ABDOMEN + PELVIS With Contrast IV Amt: 92 ML OPTIRAY 320 EXAM: CT Abdomen and Pelvis With Intravenous Contrast CLINICAL HISTORY: Reason for exam: n/v/d, chemo pt. TECHNIQUE: Axial computed tomography images of the abdomen and pelvis with intravenous contrast. CTDI is 13.72 mGy and DLP is 600.91 mGy-cm. Automated exposure control was utilized for the study. A dose lowering technique was utilized adhering to the principles of ALARA. CONTRAST: Patient received 92 ML OPTIRAY 320 of IV contrast COMPARISON: No relevant prior studies available. FINDINGS: Limitations: Limited examination in the absence of clinical history. Type of neoplasm not provided. Recommend continued attention on follow- up imaging as dictated per patient's primary malignancy. Lung bases: Dependent scarring at the lung bases. No consolidation. ABDOMEN: Liver: Unremarkable. No mass. Gallbladder and bile ducts: Cholecystectomy changes. No ductal dilation. Pancreas: Unremarkable. No mass. No ductal dilation. Spleen: Unremarkable. No splenomegaly. Adrenals: Unremarkable. No mass. Kidneys and ureters: Unremarkable. No solid mass. No hydronephrosis. Stomach and bowel: Mild annular thickening of the colon extending from the splenic flexure. Findings may relate to underdistention. Colitis also possible. Consider correlation with laboratory values. No evidence of bowel obstruction. PELVIS: Appendix: Normal appendix. Bladder: Unremarkable. No mass. Reproductive: Calcifications in the uterus which may relate to a fibroid. ABDOMEN and PELVIS: Intraperitoneal space: Unremarkable. No free air. No significant fluid collection. Bones/joints: Degenerative changes in the spine. No acute fracture. No dislocation. Soft tissues: Midline fat and suspected omentum containing supraumbilical ventral hernia. Mild stranding noted. Consider correlation with point tenderness. Incarceration is not excluded. Vasculature: Atherosclerotic disease. No abdominal aortic aneurysm. Lymph nodes: Unremarkable. No enlarged lymph nodes. IMPRESSION: 1. Limited examination in the absence of clinical history. Type of neoplasm not provided. Recommend continued attention on follow-up imaging as dictated per patient's primary malignancy. 2. Midline fat and suspected omentum containing supraumbilical ventral hernia. Mild stranding noted. Consider correlation with point tenderness. Incarceration is not excluded. 3. Mild annular thickening of the colon extending from the splenic flexure. Findings may relate to underdistention. Colitis also possible. Consider correlation with laboratory values. 4. No evidence of bowel obstruction. 5. Normal appendix. Lasix. Other incidental findings as described. Electronically signed by: Cristofer Espinoza MD 07/21/23 04:27 AM
[2023-07-21 06:05] LABS: Appearance Urine Clear (Clear); Bacteria Urine Automated None Seen (None Seen); Bilirubin Urine Negative (Negative); Blood Urine Negative (Negative); Cast Urine Automated 0-2 /lpf (0-2); Color Urine Yellow; Epithelial Cell Urine Auto 0-2 /hpf (0-2); Glucose Urine UA Negative (Negative); Ketones Urine 2+ (Negative); Leukocyte Esterase Urine Negative (Negative); Nitrite Urine Negative (Negative); Protein Urine Trace (Negative); RBC Urine Automated 0-2 /hpf (0-2); Specific Gravity Urine > 1.045 (1.000-1.030); Urobilinogen Urine Negative (Negative); WBC Urine Automated 0-5 /hpf (0-5); pH Urine 5.5 (4.5-7.5)
[2023-07-21 06:34] LABS: Hematocrit (blood only) 39.6 % (37.0-47.0); Hemoglobin 13.1 g/dl (12.0-16.0); Mean Corpuscular Hemoglobin 29.7 pg (25.0-34.0); Mean Corpuscular Hgb Conc 33.1 g/dL (32.0-36.0); Mean Corpuscular Volume 89.8 fL (80.0-100.0); Mean Platelet Volume 10.5 fL (9.4-12.4); Platelet Count 140 K/uL (130-400); RDW Coefficient of Variation 12.5 % (11.5-14.5); RDW Standard Deviation 41.1 fL (36.4-46.3); Red Blood Count 4.41 M/uL (4.20-5.40)
[2023-07-21 06:40] LABS: White Blood Count 19.05 K/ul (4.8-10.8)
[2023-07-21] MEDS: CEFEPIME 2,000 MG/20 ML VIAL IV STA (06:53)
[2023-07-21 07:11] LABS: ALC (manual) 3.05 K/uL (1.2-3.4); ANC (manual) 12.57 K/uL (1.4-6.5); Blast # (manual) 0.19 K/uL (0-0); Blast Cells % (manual) 1 %; Lymphocytes # (manual) 3.05 K/uL (1.2-3.4); Lymphocytes % (manual) 16 %; Metamyelocytes # (manual) 1.52 K/uL (0-0); Metamyelocytes % (manual) 8 %; Monocytes # (manual) 0.95 K/uL (0.11-0.59); Monocytes % (manual) 5 %; Myelocytes # (manual) 0.57 K/uL (0-0); Myelocytes % (manual) 3 %; Neutrophils # (manual) 12.57 K/uL (1.40-6.50); Neutrophils % (manual) 66 %; Promyelocytes # (manual) 0.19 K/uL (0-0); Promyelocytes % (manual) 1 %
--- NOTE | 2023-07-21 07:36 | History & Physical Report ---
Date of Service July 21, 2023 Assessment & Plan (1) Nausea & vomiting: (2) Abdominal pain: (3) Malignant neoplasm of breast (female): Plan Ms. Rivas is a 73-year-old woman with history of rheumatoid arthritis no longer on DMARD and right breast carcinoma T1c N0 M0, stage IA who is admitted for management of refractory nausea and vomiting. Patient not on any medications at home outside of calcium supplement and pretreatment for chemo. #Intractable Nausea and vomiting related to chemotherapy #Diarrhea #Right breast cancer, ER and [place] positive, HER2 Jeb positive. Based on MRI of the breast, It is about 2.2 cm, also has 3 satellite lesions in the right eli Planned for 6 cycles of TCH P and then she will have surgical intervention Prescribed Compazine, Zofran for the symptomatic treatment nausea and vomiting; didn't work Took Decadron as part of pre-chemotherapy ( e-prescribed) Stool PCR negative, biofire negative -s/p IV decadron and OD olanzapine with notable improvement -continue 2.5mg OD olanzapine qhs x4 doses -Continue IV compazine -IVF 125cc/hr until intake increases -CLD for now #Leukocytosis received pegfilgrastim s/p treatment 07/13 Potentially 2/2 reactive from N/V and tx above #Elevated troponin low suspicion for ischemic event, likely 2/2 stress of chemo/vomiting Recent echo 05/2023 with no wall motion abnormalities preserved EF trend to peak, tele #Rheumatoid arthritis Previously on methotrexate and Orencia, but discontinued iso chemotherapy DVT lovenoz Admission and Anticipated Discharge Date Admission Date: Time spent evaluating patient, direct bedside care, chart review, placing orders, interpretation of diagnostic studies, discussion with consultants, patient, and family members, as well as other required patient management activities is 75 minutes. History of Present Illness Primary Care Provider: DIMITRIOS Montoya Nause Vomiting, post-chem Ms. Rivas is a 73-year-old woman with history of rheumatoid arthritis no longer on DMARD and right breast carcinoma T1c N0 M0, stage IA .presented to [facility] ED due to persistent nausea and vomiting post-chemotherapy. Patient underwent her first cycle of treatment 07/12. She took her dexamethasone as instructed and was feeling "alright" until two days after treatment ended. She has since been suffering from persistent nausea and vomiting with no aid from antiemetics. She denies fevers or chills. She reports sore abdomen 2/2 vomiting. She reports intermittent episodes of diarrhea. She denies chest pain. She states she doesn't really take any medications at home as she stopped her RA treatments given upcoming chemo. She initially felt some relief with IV Compazine, however the nausea/vomiting returned shortly thereafter prompting admission In the ED, vitals were notable for BP of 110s-120s, HR of 80s-100s and O2 sat of high 90s on room air Imaging revealed thickening of colon with suspicious for underdistention v colitis EKG QTC 479 ED interventions: IVF Compazine Patient to be admitted to med/tele for further evaluation and management of post-chemotherapy induced nausea/vomiting Allergies Allergy/AdvReac Type Severity Reaction Status Date / Time No Known Allergies Allergy Unverified 07/21/23 09:01 Home Medications Medication Instructions Recorded Confirmed Type Chemo Treatment 07/21/23 History calcium carbonate (Calcium 600) 600 mg PO BID 07/21/23 07/21/23 History dexamethasone 4 mg tablet 4 mg PO DIRECTED 07/21/23 07/21/23 History folic acid 1 mg tablet 1 mg PO DAILY 07/21/23 07/21/23 History ondansetron HCl 8 mg tablet 8 mg PO DIRECTED 07/21/23 07/21/23 History prochlorperazine maleate 10 mg 10 mg PO Q6H 07/21/23 07/21/23 History tablet Past Med/Surg History Problem List (Updated 07/21/23 @ 18:00 by Nisha Vinson MD) Nausea & vomiting Abdominal pain (Acute) Medical History (Updated 07/21/23 @ 18:00 by Nisha Vinson MD) Rheumatoid arthritis Osteoarthrosis Malignant neoplasm of breast (female) Surgical History (Updated 07/21/23 @ 18:00 by Nisha Vinson MD) S/P cholecystectomy History of insertion of tunneled central venous catheter (CVC) with port Family History (Updated 07/21/23 @ 18:01 by Nisha Vinson MD) Other Cancer Coronary heart disease Heart disease Hypertension Social History Smoking Status: Never smoker Hx Alcohol Use: No Hx Substance Use: No Preferred Language: Gibraltarian Communication Ability: Effective Trimming Inspector Required: No Beliefs That Will Affect Care: None Current Living Situation: Spouse Other Information That Helps Us Care for You: No Feels Safe at Home: Yes Safety Concerns: Feels Safe At This Time Assistive Devices: None Review of Systems Review of Systems: Constitutional: (-) fever/chills, (-) recent loss of weight, (-) appetite changes, (-) night sweats. Head: (-) headache, (-) dizziness. Eye: (-) blurring of vision, (-) double vision, (-) redness. Ear: (-) hearing loss, (-) discharge, (-) vertigo Nose: (-) discharge, (-) bleeding, (-) congestion, (-) post nasal drip. Throat: (-) sore throat, (-) hoarseness of voice, (-) odynophagia. Cardiovascular: (-) chest pain, (-) palpitations, (-) syncope Respiratory: (-) shortness of breath, (-) cough, (-) wheezing, (-) hemoptysis. Neuro: (-) weakness in extremities, (-) numbness, (-) tingling, (-) tremor. Gastrointestinal: (-) belly pain, (-) belly distension, (++) nausea, (++) vomiting, (+) diarrhea, Genitourinary: (-) hematuria, (-) dysuria, (-) polyuria, (-) hesitancy, (-) frequency, (-) urinary incontinence. Musculoskeletal: (-) myalgia, (-) arthralgia. Skin: (-) rashes. Endocrine: (-) heat/cold intolerance Physical Exam Physical Exam: GENERAL APPEARANCE: AxOx4, frail, persistently nauseated appearing woman, vomited on multiple occasions during exam HEENT: NC, AT. MMM. EOMI, clear conjunctiva, oropharynx clear. NECK: Supple without lymphadenopathy. No stiffness or restricted ROM. HEART: Normal rate and regular rhythm, normal S1/S1, no m/r/g LUNGS: CTAB, moving air well. No crackles or wheezes are heard. ABDOMEN: Soft, nontender, nondistended with good bowel sounds heard. BACK: No CVAT, no obvious deformity. EXTREMITIES: Without cyanosis, clubbing or edema. NEUROLOGICAL: Grossly nonfocal. Alert and oriented, moving all 4 extremities. CN not formally tested but appear grossly intact. Skin: Warm and dry without any rash. Results & Data Results & Data Vital Signs (Past 12 Hours) Vital Signs Temp Pulse Pulse Resp BP BP Pulse Ox 07/21/23 06:26 106 H 07/21/23 06:00 84 16 130/75 98 07/21/23 05:30 90 15 113/70 96 07/21/23 05:00 83 23 114/64 96 07/21/23 04:30 94 H 18 130/76 97 07/21/23 04:00 86 20 135/74 97 07/21/23 03:30 83 15 115/59 L 95 07/21/23 03:00 91 H 22 130/68 95 07/21/23 02:59 90 16 131/73 97 07/21/23 02:34 89 16 132/89 95 07/21/23 02:24 95 H 07/21/23 02:22 94 H 11 L 132/86 94 07/21/23 02:10 36.6 C 107 H 18 122/79 96 O2 Del Method 07/21/23 06:26 07/21/23 06:00 07/21/23 05:30 07/21/23 05:00 07/21/23 04:30 07/21/23 04:00 07/21/23 03:30 07/21/23 03:00 07/21/23 02:59 07/21/23 02:34 Room Air 07/21/23 02:24 07/21/23 02:22 07/21/23 02:10 Room Air Laboratory Results Short CBC 07/21/23 07/21/23 Range/Units 02:27 05:44 WBC 19.13 H 19.05 H (4.8-10.8) K/ul Hgb 15.3 13.1 (12.0-16.0) g/dl Hct 44.8 39.6 (37.0-47.0) % Plt Count 156 140 (130-400) K/uL BMP 07/21/23 02:27 Sodium 136 Potassium 3.6 Chloride 98 Carbon Dioxide 28 BUN 17 Creatinine 1.03 Glucose 105 H Calcium 9.2 Liver Function 07/21/23 Range/Units 02:27 Total Bilirubin 0.4 (0.2-1.0) mg/dl AST 25 (13-39) U/L ALT 41 (7-52) U/L Alkaline Phosphatase 108 H (34-104) U/L Albumin 4.0 (3.4-5.0) gm/dl Urine 07/21/23 Range/Units 05:36 Urine Color Yellow Urine Appearance Clear (Clear) Urine pH 5.5 (4.5-7.5) Ur Specific [place] > 1.045 H (1.000-1.030) Urine Protein Trace H (Negative) Urine Glucose (UA) Negative (Negative) Diagnostic Findings Abdomen/Pelvis CT 07/21/23 03:54 Exam(s): CT ABDOMEN + PELVIS With Contrast IV Amt: 92 ML OPTIRAY 320 EXAM: CT Abdomen and Pelvis With Intravenous Contrast CLINICAL HISTORY: Reason for exam: n/v/d, chemo pt. TECHNIQUE: Axial computed tomography images of the abdomen and pelvis with intravenous contrast. CTDI is 13.72 mGy and DLP is 600.91 mGy-cm. Automated exposure control was utilized for the study. A dose lowering technique was utilized adhering to the principles of ALARA. CONTRAST: Patient received 92 ML OPTIRAY 320 of IV contrast COMPARISON: No relevant prior studies available. FINDINGS: Limitations: Limited examination in the absence of clinical history. Type of neoplasm not provided. Recommend continued attention on follow- up imaging as dictated per patient's primary malignancy. Lung bases: Dependent scarring at the lung bases. No consolidation. ABDOMEN: Liver: Unremarkable. No mass. Gallbladder and bile ducts: Cholecystectomy changes. No ductal dilation. Pancreas: Unremarkable. No mass. No ductal dilation. Spleen: Unremarkable. No splenomegaly. Adrenals: Unremarkable. No mass. Kidneys and ureters: Unremarkable. No solid mass. No hydronephrosis. Stomach and bowel: Mild annular thickening of the colon extending from the splenic flexure. Findings may relate to underdistention. Colitis also possible. Consider correlation with laboratory values. No evidence of bowel obstruction. PELVIS: Appendix: Normal appendix. Bladder: Unremarkable. No mass. Reproductive: Calcifications in the uterus which may relate to a fibroid. ABDOMEN and PELVIS: Intraperitoneal space: Unremarkable. No free air. No significant fluid collection. Bones/joints: Degenerative changes in the spine. No acute fracture. No dislocation. Soft tissues: Midline fat and suspected omentum containing supraumbilical ventral hernia. Mild stranding noted. Consider correlation with point tenderness. Incarceration is not excluded. Vasculature: Atherosclerotic disease. No abdominal aortic aneurysm. Lymph nodes: Unremarkable. No enlarged lymph nodes. IMPRESSION: 1. Limited examination in the absence of clinical history. Type of neoplasm not provided. Recommend continued attention on follow-up imaging as dictated per patient's primary malignancy. 2. Midline fat and suspected omentum containing supraumbilical ventral hernia. Mild stranding noted. Consider correlation with point tenderness. Incarceration is not excluded. 3. Mild annular thickening of the colon extending from the splenic flexure. Findings may relate to underdistention. Colitis also possible. Consider correlation with laboratory values. 4. No evidence of bowel obstruction. 5. Normal appendix. Lasix. Other incidental findings as described. Electronically signed by: Cristofer Espinoza MD 07/21/23 04:27 AM Medications Administered Active Medications Generic Name Dose Route Start Last Admin Trade Name Freq PRN Reason Stop Dose Admin Sodium Chloride 1,000 mls @ 125 mls/hr 07/21/23 04:00 07/21/23 06:16 Nss IV 08/20/23 03:59 Infused .Q8H [facility]
[2023-07-21 08:32] LABS: Adenovirus F 40/41 PCR Not Detected (NotDetected); Astrovirus PCR Not Detected (NotDetected); Campylobacter PCR Not Detected (NotDetected); Cryptosporidium PCR Not Detected (NotDetected); Cyclospora cayetanensis PCR Not Detected (NotDetected); Entamoeba histolytica PCR Not Detected (NotDetected); Enteroaggregative E.coli(EAEC) Not Detected (NotDetected); Enteropathogenic E.coli (EPEC) Not Detected (NotDetected); Enterotoxigenic E.coli (ETEC) Not Detected (NotDetected); Giardia lamblia PCR Not Detected (NotDetected); Norovirus GI/GII PCR Not Detected (NotDetected); Plesiomonas shigelloides PCR Not Detected (NotDetected); Rotavirus A PCR Not Detected (NotDetected); Salmonella PCR Not Detected (NotDetected); Sapovirus PCR Not Detected (NotDetected); Shiga-like Toxin E.coli (STEC) Not Detected (NotDetected); Shigella/Enteroinvasive E.coli Not Detected (NotDetected); Vibrio cholerae PCR Not Detected (NotDetected); Vibrio species PCR Not Detected (NotDetected); Yersinia enterocolitica PCR Not Detected (NotDetected)
--- NOTE | 2023-07-21 08:36 | Electrocardiogram Report ---
Test Reason : Blood Pressure : / mmHG Vent. Rate : 089 BPM Atrial Rate : 089 BPM P-R Int : 146 ms QRS Dur : 084 ms QT Int : 394 ms P-R-T Axes : 058 023 054 degrees QTc Int : 479 ms Normal sinus rhythm Normal ECG When compared with ECG of 05-OCT-2004 08:02, QT has lengthened Confirmed by Danilo Yadav ([id number]) on 07/21/2023 8:36:08 AM Referred By: REFERRED SELF Confirmed By:Danilo Yadav
[2023-07-21] MEDS ORDERED: ACETAMINOPHEN 325 MG TAB PO PRN (10:35)
[2023-07-21] MEDS: ENOXAPARIN INJ 40 MG/0.4 ML SYR SQ SCH (11:34)
[2023-07-21] MEDS ORDERED: dexAMETHasone**PF** 10 MG/ML VIAL IV STA (15:39)
[2023-07-21] MEDS: PROCHLORPERAZINE 5 MG in SYRINGE 4 ML IV PRN (16:01)
[2023-07-21] MEDS: dexAMETHasone 5 MG in SYRINGE 0 ML IV STA (16:49)
[2023-07-21] MEDS: OLANZapine ZYDIS 5 MG ORALLY DIS. TAB PO STA (16:49)
[2023-07-21] MEDS: OLANZapine ZYDIS 5 MG ORALLY DIS. TAB PO SCH (21:20)
[2023-07-22 06:31] LABS: Hematocrit (blood only) 37.6 % (37.0-47.0); Hemoglobin 12.5 g/dl (12.0-16.0); Mean Corpuscular Hemoglobin 29.8 pg (25.0-34.0); Mean Corpuscular Hgb Conc 33.2 g/dL (32.0-36.0); Mean Corpuscular Volume 89.7 fL (80.0-100.0); Mean Platelet Volume 10.1 fL (9.4-12.4); Platelet Count 171 K/uL (130-400); RDW Coefficient of Variation 12.9 % (11.5-14.5); Red Blood Count 4.19 M/uL (4.20-5.40); White Blood Count 27.52 K/ul (4.8-10.8)
[2023-07-22 06:40] LABS: Albumin Globulin Ratio 1.4 (0.9-2); Albumin Level 3.2 gm/dl (3.4-5.0); BUN Creatinine Ratio 10.8 (10-20); Bilirubin,Total 0.2 mg/dl (0.2-1.0); Calcium 7.8 mg/dl (8.6-10.3); Creatinine Clr Calc Pharmacy 57.4 ml/min; Est GFR (African American) 81.7 ml/min; Est GFR (Non-African American) 70.4 ml/min; Globulin 2.3 gm/dl (2.5-4.0); Magnesium 1.8 mg/dl (1.7-2.4); Phosphorus 3.6 mg/dl (2.5-4.9); Potassium 3.9 mmol/L (3.5-5.1); Total Protein 5.5 gm/dl (6.0-8.3)
--- NOTE | 2023-07-22 15:21 | Communication Note ---
Date of Service: July 22, 2023 By CMS guidelines, a determination that the admission or continued stay is not medically necessary has been made by a member of the UR committee and a physic guera for this hospital stay, therefore a Code 44 will be completed and the Inpatient admission will be changed to outpatient.
--- NOTE | 2023-07-22 15:25 | Discharge Summary ---
Date of Service July 22, 2023 Admission HPI Per Admitting Provider Nause Vomiting, post-chem Ms. Rivas is a 73-year-old woman with history of rheumatoid arthritis no longer on DMARD and right breast carcinoma T1c N0 M0, stage IA .presented to [facility] ED due to persistent nausea and vomiting post-chemotherapy. Patient underwent her first cycle of treatment 07/12. She took her dexamethasone as instructed and was feeling "alright" until two days after treatment ended. She has since been paz ffering from persistent nausea and vomiting with no aid from antiemetics. She denies fevers or chills. She reports sore abdomen 2/2 vomiting. She reports intermittent episodes of diarrhea. She denies chest pain. She states she doesn't really take any medications at home as she stopped her RA treatments given upcoming chemo. She initially felt some relief with IV Compazine, however the nausea/vomiting returned shortly thereafter prompting admission In the ED, vitals were notable for BP of 110s-120s, HR of 80s-100s and O2 sat of high 90s on room air Imaging revealed thickening of colon with suspicious for underdistention v colitis EKG QTC 479 ED interventions: IVF Compazine Patient to be admitted to med/tele for further evaluation and management of post-chemotherapy induced nausea/vomiting Admission Exam Per Admitting Provider GENERAL APPEARANCE: AxOx4, frail, persistently nauseated appearing woman, vomited on multiple occasions during exam HEENT: NC, AT. MMM. EOMI, clear conjunctiva, oropharynx clear. NECK: Supple without lymphadenopathy. No stiffness or restricted ROM. HEART: Normal rate and regular rhythm, normal S1/S1, no m/r/g LUNGS: CTAB, moving air well. No crackles or wheezes are heard. ABDOMEN: Soft, nontender, nondistended with good bowel sounds heard. BACK: No CVAT, no obvious deformity. EXTREMITIES: Without cyanosis, clubbing or edema. NEUROLOGICAL: Grossly nonfocal. Alert and oriented, moving all 4 extremities. CN not formally tested but appear grossly intact. Skin: Warm and dry without any rash. Principal Diagnosis Intractable nausea, vomiting, diarrhea related to chemotherapy Discharge Exam GENERAL: Alert and oriented x3. NAD, on RA. HEENT: No pallor, no icterus. Pupils equal, round and reactive to light. Oral mucosa moist. NECK: No JVD, no neck masses. HEART: S1 and S2 heard. Regular rate and rhythm. No murmur, no gallop. RESPIRATORY SYSTEM: Normal AP diameter. No accessory muscle use. No wheezing, no crackles. ABDOMEN: Soft, bowel sounds present, nontender, no distention. CENTRAL NERVOUS SYSTEM: No facial droop. Speech is clear. Obeys simple commands. Moves extremities. EXTREMITIES: No edema, no erythema seen. Discharge Data Allergies Allergy/AdvReac Type Severity Reaction Status Date / Time No Known Allergies Allergy Unverified 07/21/23 09:01 Consultations 07/21/23 07:38 ED Decision to Admit Stat Ordered Studies 07/21/23 03:54 CT abd pelvis IV con only Stat Hospital Course (1) Nausea & vomiting: (2) Abdominal pain: (3) Malignant neoplasm of breast (female): Plan Per prior attending with addendum: Ms. Rivas is a 73-year-old woman with history of rheumatoid arthritis no longer on DMARD and right breast carcinoma T1c N0 M0, stage IA who is admitted for management of refractory nausea and vomiting. Patient not on any medications at home outside of calcium supplement and pretreatment for chemo. #Intractable Nausea and vomiting related to chemotherapy #Diarrhea #Right breast cancer, ER and [place] positive, HER2 Jeb positive. Based on MRI of the breast, It is about 2.2 cm, also has 3 satellite lesions in the right eli Planned for 6 cycles of TCH P and then she will have surgical intervention Prescribed Compazine, Zofran for the symptomatic treatment nausea and vomiting; didn't work Took Decadron as part of pre-chemotherapy ( e-prescribed) Stool PCR negative, biofire negative -s/p IV decadron and OD olanzapine with notable improvement -continue 2.5mg OD olanzapine qhs x4 doses -Continue IV compazine -IVF 125cc/hr until intake increases -CLD for now #Leukocytosis received pegfilgrastim s/p treatment 07/13 Potentially 2/2 reactive from N/V and tx above #Elevated troponin low suspicion for ischemic event, likely 2/2 stress of chemo/vomiting Recent echo 05/2023 with no wall motion abnormalities preserved EF trend to peak, tele #Rheumatoid arthritis Previously on methotrexate and Orencia, but discontinued iso chemotherapy DVT lovenoz Addendum 07/22/2023: Patient was seen and examined at bedside as a follow-up of intractable nausea, vomiting, diarrhea. Patient reports improvement in her nausea and vomiting, has tolerated soft diet today with no issues. Is still having loose stool - 2 a day, recommended to utilize psyllium fiber [id number] per technology training associate's recommendation. Also recommended to utilize Pedialyte solution to replace for the volume loss. Patient reports feeling better, is hemodynamically stable and would like to go home. Leukocytosis was noted, procalcitonin trend negative. Patient with no acute signs of infection currently. No abdominal pain. She is being discharged with following instructi on at the point of discharge: Follow-up with your primary care physician within a week time and likely you will need labs CBC/CMP/magnesium/phosphorus. Your nausea, vomiting improved. Continue easily digestible/soft food for next few days. You will be discharged on few days worth of scheduled PM nausea medications. Take your other as needed nausea medications for your nausea and vomiting as appropriate. For your diarrhea, utilize [id number] Pedialyte solution to compensate for the fluid loss from the diarrhea. 1 to 2 L of Pedialyte solution a day would be an appropriate electrolyte replacement for next 2 to 3 days. Also you can utilize [id number]-mrfrkxs psyllium fiber to help form/bulk up the stool. Take once a day as per technology training associate's recommendation. If you have any increasing abdominal pain/febrile illness/new signs and symptoms of acute illness, report to your PCP office or emergency immediately. Take your medications as prescribed. Please make sure that you are able to get your medications today by calling your pharmacy before you leave the hospital so that your treatment continuity is not broken. Home Health Attestation I certify that this patient is under my care and that I, or a physicians assistant fitness manager working with me, had a face to-face encounter that meets the home health raxh-le-ztit encounter requirements with this patient. The encounter with the patient was in whole, or in part, for the following medical condition, which is the primary reason for home health care (list medical condition): I certify that, based on my findings, the following services are medically necessary home health services: My clinical findings support the need for the above services because: Further, I certify that my clinical findings support that this patient is homebound (i.e. absences from home require considerable and taxing effort and are for medical reasons or sabianism services or infrequently or of short duration when for other reasons) because: Certification for Home Health Services: Based on the above findings, I certify that this patient is confined to the home and needs intermittent half-way care, physical therapy and/or speech therapy or continues to need occupational therapy. The patient is under my care, and I have initiated the establishment of the plan of care. This patient will be followed by a physician who will periodically review the plan of care. Total Time Total Time Spent Total Time Spent (In Minutes): 45 Discharge Plan Discharge Items Patient Disposition: Home - Self-Care Reason For Visit: SICK FROM CHEMO Discharge Diagnosis: Intractable nausea, vomiting, diarrhea related to chemotherapy Activity: Resume your previous activity Non-emergency contact: Primary Care Provider Call non-emergency contact if: you have any medication questions and your symptoms worsen Follow-up/Referrals: Charlene York CRNP [Primary Care Provider] - Diet: Heart Healthy Diet Texture: Dental soft (bite-sized) Addtl Attending Provider Instructions: Follow-up with your primary care physician within a week time and likely you will need labs CBC/CMP/magnesium/phosphorus. Your nausea, vomiting improved. Continue easily digestible/soft food for next few days. You will be discharged on few days worth of scheduled PM nausea medications. Take your other as needed nausea medications for your nausea and vomiting as appropriate. For your diarrhea, utilize [id number]-wwbuhim Pedialyte solution to compensate for the fluid loss from the diarrhea. 1 to 2 L of Pedialyte solution a day would be an appropriate electrolyte replacement for next 2 to 3 days. Also you can utilize [id number]-[id number] psyllium fiber to help form/bulk up the stool. Take once a day as per technology training associate's recommendation. If you have any increasing abdominal pain/febrile illness/new signs and symptoms of acute illness, report to your PCP office or emergency immediately. Take your medications as prescribed. Please make sure that you are able to get your medications today by calling your pharmacy before you leave the hospital so that your treatment continuity is not broken. Pending Studies at Discharge: No Stand-Alone Forms: My [employer], Smoking Cessation Medications and DC Order Prescriptions: New olanzapine 5 mg Tablet,Disintegrating 2.5 mg PO HS 4 Days Qty: 2 0RF Continued calcium carbonate [Calcium 600] 600 mg calcium (1,500 mg) Tablet 600 mg PO BID folic acid 1 mg Tablet 1 mg PO DAILY Chemo Treatment Rx Instructions: EVERY 3 WEEKS; started 07/13/23 ondansetron HCl 8 mg tablet 8 mg PO DIRECTED prochlorperazine maleate 10 mg tablet 10 mg PO Q6H dexamethasone 4 mg tablet 4 mg PO DIRECTED Discharge Orders: Discharge Order (Routine); Ordered 07/22/23 Ordered By: Mya Yang Admission Data Admit Date/Time: 07/21/23 07:42 Attending Provider: Mya Yang Admit Provider: Nisha Vinson Primary Care Provider: Charlene York Other Providers: Nisha Vinson
[2023-07-22] MEDS: PSYLLIUM or GUAR GUM FIBER 4GM PACKET PO SCH (16:40)
== END 2023-07-22 18:10 | disposition home or self-care (01) | DRG 395 ==
LOC: ED 02:06 → SUATTDRO 07:42 → INTOOBSV 07:42 → 2W 07:42

== ENCOUNTER 2023-08-15 09:47 | Inpatient (IN) ==
--- OUTSIDE RECORDS SUMMARY | 2023-08-15 09:54 | External Medical Summary | Summary of Care ---
Author Name Unknown Organization [facility] Address [address] [facility] [address] Phone [phone] Care Team Providers Care Sledger Name Role Phone Charlene York Primary Care Provider Reason for Visit * Reason Onset Date Comments Medication Refill 08/11/2023 Encounter Details Date Type Department Care Team (Late st Contact Info) Description 08/11/2023 Refill [facility] [place] [address] [facility] [place] [phone] Bimal Sharif MD [facility] [address] Malignant neoplasm of upper-outer quadrant of right breast in female, estrogen receptor positive (HCC) Allergies No known active allergiesdocumented as of this encounter (statuses as of 08/11/2023) Medications Medication Sig Dispensed Refills Start Date [...] Administer intravenously. Active dexAMETHasone 4 MG Oral TabletIndications:M alignant neoplasm of upper-outer quadrant of right breast in female, estrogen receptor positive (HCC) Take 2 tablets twice a day, starting on the previous day of the treatment for total 3 days and repeat with each chemo cycle 72 Tablet 06/11/2023 Active Prochlorperazine Maleate 10 MG Oral Tablet (Compazine)Indicati ons:Malignant neoplasm of upper-outer quadrant of right breast in female, estrogen receptor positive (HCC) Take 1 Tablet by mouth every 6 hours as needed for Nausea. 60 Tablet 2 06/11/2023 Active Diphenoxylate-Atrop ine 2.5-0.025 MG Oral Tablet (Lomotil)Indication s:Malignant neoplasm of upper-outer quadrant of right breast in female, estrogen receptor positive (HCC),Chemotherapy induced diarrhea Take 1 Tablet by mouth 4 times a day as needed for Diarrhea. 30 Tablet 1 08/04/2023 Active Ondansetron HCl 8 MG Oral TabletIndications:M alignant neoplasm of upper-outer quadrant of right breast in female, estrogen receptor positive (HCC) Take 1 Tablet by mouth every 8 hours as needed for Nausea. 30 Tablet 3 08/11/2023 Active Ondansetron HCl 8 MG Oral TabletIndications:M alignant neoplasm of upper-outer quadrant of right breast in female, estrogen receptor positive (HCC) Take 1 Tablet by mouth every 8 hours as needed for Nausea. 30 Tablet 3 06/11/2023 4 Discontinue d(Refill) documented as of this encounter (statuses as of 08/11/2023) Active Problems Problem Noted Date Diagnosed Date Change of skin related to chemotherapy 4 Chemotherapy-induced enteritis 07/28/2023 Hospital discharge follow-up 07/28/2023 Chemotherapy induced nausea and vomiting 024 Ventral hernia without obstruction or gangrene 0 07/28/2023 Dehydration 07/17/2023 Malignant neoplasm of upper- outer quadrant of right breast in female, estrogen receptor positive 06/11/2023 Encounter for antineoplastic chemotherapy 2023 SPINAL STENOSIS-LUMBAR 08/29/2004 ADVANCE DIRECTIVE INFORMATION 07/12/2004 Overview: Pt stated she will bring in a copy of her Living Will Arthritis, 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/09/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 05/09/2004 documented as of this encounter (statuses as of 08/11/2023) Resolved Problems Problem Noted Date Diagnosed Date Resolved Date Impacted cerumen 03/11/2023 Otitis media 03/11/2023 documented as of this encounter (statuses as of 08/11/2023) Immunizations Name Administration Dates Next Due SARS-COV-2 (COVID-19) Vaccine Unspecified 2022 Seasonal Influenza Virus Vac cine, Unspecified Formulation 12/15/2013,03/23/2013,01/20/2006 Seasonal Influenza, Split, I IV3, With Preserve, Inj 01/20/2006 TDAP (age 10 and older)(Boostrix) 03/11/2023 TDAP, Age 7 and older, IM (Adacel) 06/30/2012 documented as of this encounter Social History Tobacco Use Types Packs/Day Years Used Date Smoking Tobacco: Never Smokeless Tobacco: Never Alcohol Use Standard Drinks/Week Comments No 0 (1 standard drink = 0.6 oz pur e alcohol) Utilities Answer Date Recorded Do you have trouble paying y our heating, water, or electric bill? (Adult - for ages 18 years and over) Not on file 08/11/2023 Is your family able to pay t he heat, water, or electric bill? (Household - for ages 0-17 years) Not on file 08/11/2023 Does your family have access to good internet? (Household - for ages 0-17 years) Not on file 08/11/2023 Social Connections Answer Date Recorded How often do you feel lonely or isolated from those around you? (Adult - for ages 18 years and over) Not on file 08/11/2023 Sex and Gender Information Value Date Recorded Sex Assigned at Not on file Gender Identity Not on file Sexual Orientation Not on file Job Start Date Occupation Industry Not on file Not on file Not on file documented as of this encounter Miscellaneous Notes * Telephone Encounter - Bimal Sharif MD - 08/11/2023 2:43 PM EDT E-prescribed Zofran. Bimal Sharif MD Hem/Onc * Telephone Encounter - Bimal Sharif MD - 08/11/2023 2:43 PM EDTSigned Prescriptions: Disp Refills Ondansetron HCl 8 MG Oral Tablet 30 Tab*3 Sig: Take 1 Tablet by mouth every 8 hours as needed for Nausea. Authorizing Provider: BIMAL SHARIF * Telephone Encounter - Addi Jean RN - 08/11/2023 12:56 PM EDTPending Prescriptions: Disp Refills Ondansetron HCl 8 MG Oral Tablet 30 Tab*3 Sig: Take 1 Tablet by mouth every 8 hours as needed for Nausea. * Telephone Encounter - Leigh Zheng CPhT - 08/11/2023 12:49 PM EDT Patient is up to date for office visits. Pending Prescriptions: Disp Refills Ondansetron HCl 8 MG Oral Tablet 30 Tab*3 Sig: Take 1 Tablet by mouth every 8 hours as needed for Nausea. Last Visit: 08/04/2023 (in office), Visit date not found (telemedicine) Next Visit: 08/25/2023 If no future appointments scheduled, and last appointment is greater than a year ago, please schedule patient for a follow-up appointment Last date the medication was ordered: 06/11/2023 Pharmacy: [id number] [id number] [facility] [place] Is this request for a controlled substance?No it is not controlled. Urine Drug Screen:No results found for this or any previous visit. Patient Phone Numbers Labs: Lab Results Component Value Date/Time CREAT 0.8 08/03/2023 07:04 AM POTASSIUM 3.8 08/03/2023 07:04 AM LDLCALC 79 03/11/2023 03:04 PM ALT 29 08/03/2023 07:04 AM documented in this encounter Plan of Treatment Upcoming Encounters Date Type Department Care Team (Late st Contact Info) Description 08/25/2023 9:30 AM EDT Laboratory Laboratory [facility] [place] [address] [place] [phone] [place], Lab [facility] [address] [facility] [place] [address] 08/25/2023 9:45 AM EDT Office Visit Hematology/Oncology [facility] [place] [address] [place] [phone] Bimal Sharif MD [address] [place] [address] 08/25/2023 10:15 AM EDT Hem/Onc Treatment Hematology/Oncology Treatment, [place] [address] [place] [phone] Aida, Chair [address] Hem On[address] [facility] [address] [facility] [place] [place] [address] 11/05/2023 7:40 AM EDT Office Visit Family [facility] [address] [place] [address] Charlene York CRNP [address] [place] [address] Health Maintenance Due Date Last Done Comments [...] this encounter Medical Devices Implanted Type Area Tractor Trailer Moving Van Driver Device Identifier Shelf Expiration Date Model / Serial / Lot Power Port 8fr Sngl Lumen Plas - [id number] Implanted:Qty : 1 on 07/08/2023 by Naun Ratliff MD at [facility] Right: Chest CR BARD : PERIPHERAL VASCULAR [id number] 10/23/2024 [id number] / / [id number] documented as of this encounter Visit Diagnoses Diagnosis Malignant neoplasm of upper-outer quadrant of right breast in female, estrogen receptor positive (HCC) documented in this encounter Care Teams Sledger Relationship Specialty Start Date End Date Charlene York CRNP [address] [place] [address] PCP - General Nurse Practitioner 03/11/23 documented as of this encounter
--- OUTSIDE RECORDS SUMMARY | 2023-08-15 09:54 | External Medical Summary | Summary of Care ---
Author Name Unknown Organization [facility] Address [address] [facility] [place] [address] Phone [phone] Care Team Providers Care Facsimile Machine Operator Name Role Phone Charlene York Primary Care Provider Reason for Visit * Reason Comments Outpatient Testing Encounter Details Date Type Department Care Team (Late st Contact Info) Description 08/03/2023 7:00 AM EDT Laboratory Laboratory [facility] [place] [address] [place] [phone] [place], Lab [address] [place] [address] Malignant neoplasm of upper-outer quadrant of right breast in female, estrogen receptor positive (HCC) Allergies No known active allergiesdocumented as of this encounter (statuses as of 08/03/2023) Medications Medication Sig Dispensed Refills Start Date [...] as of this encounter (statuses as of 08/03/2023) Active Problems Problem Noted Date Diagnosed Date Change of skin related to chemotherapy Chemotherapy-induced enteritis 07/28/2023 Hospital discharge follow-up 07/28/2023 [...] as of this encounter (statuses as of 08/03/2023) Resolved Problems Problem Noted Date Diagnosed Date Resolved Date Impacted cerumen 03/11/2023 Otitis media 03/11/2023 documented as of this encounter (statuses as of 08/03/2023) Immunizations Name Administration Dates Next Due SARS-COV-2 [...] 08/03/2023 8:00 AM EDT Office Visit Hematology/Oncology [facility] 200 [place] [phone] Tatiana Grullon CRNP 400 [facility] [place] [address] 08/03/2023 8:30 AM EDT Hem/Onc Treatment Hematology/Oncology Treatment, [place] 200 [place] [phone] A[place], Chair 4 Hem Onc [address] [address] 11/05/2023 7:40 AM EDT Office Visit Family Practice [facility] 132 [place] [address] Charlene York CRNP 132 [place] [address] Pending Results Name Type Priority Associated Diagnoses Date /Time CBC WITH WBC DIFFERENTIAL Lab STAT Malignant neoplasm of upper-outer quadrant of right breast in female, estrogen receptor positive (HCC) 08/03/2023 7:04 AM EDT COMPREHENSIVE METABOLIC PANEL Lab STAT Malignant neoplasm of upper-outer quadrant of right breast in female, estrogen receptor positive (HCC) 08/03/2023 7:04 AM EDT CBC Lab STAT Malignant neoplasm of upper-outer quadrant of right breast in female, estrogen receptor positive (HCC) 08/03/2023 7:04 AM EDT DIFFERENTIAL, AUTOMATED Lab STAT Malignant neoplasm of upper-outer quadrant of right breast in female, estrogen receptor positive (HCC) 08/03/2023 7:04 AM EDT Health Maintenance Due Date Last [...] this encounter Medical Devices Implanted Type Area Commercial Escrow Officer Device Identifier Shelf Expiration Date Model / Serial / Lot Power Port 8fr Sngl Lumen Plas - [id number] Implanted:Qty : 1 on 07/08/2023 by Naun Ratliff MD at OR [facility] Right: Chest CR BARD : PERIPHERAL VASCULAR [id number] 10/23/2024 [id number] / / [id number] documented as of this encounter Visit Diagnoses Diagnosis Malignant neoplasm of upper-outer quadrant of right breast in female, estrogen receptor positive (HCC) documented in this encounter Care Teams Facsimile Machine Operator Relationship Specialty Start Date End Date Charlene York CRNP [address] [place] [address] PCP - General Nurse Practitioner 03/11/23 documented as of this encounter
--- OUTSIDE RECORDS SUMMARY | 2023-08-15 09:54 | External Medical Summary | Summary of Care ---
Author Name Unknown Organization [facility] Address [address] [facility] [place] [address] Phone [phone] Care Team Providers Care Chenille Machine Operator Name Role Phone Charlene York Primary Care Provider Reason for Visit * Reason Onset Date Comments Advice 08/11/2023 [place] Encounter Details Date Type Department Care Team (Late st Contact Info) Description 08/11/2023 Telephone Hematology/Oncology [facility] [place] [address] [place] [phone] Bimal [facility]if MD 200 [facility] [address] Advice ([place]) Allergies No known active allergiesdocumented as of [...] for Nausea. 60 Tablet 2 06/11/2023 Active Diphenoxylate-Atropin e 2.5-0.025 MG Oral Tablet (Lomotil)Indications: Malignant neoplasm of upper-outer quadrant of right breast in female, estrogen receptor positive (HCC),Chemotherapy induced diarrhea Take 1 Tablet by mouth 4 times a day as needed for Diarrhea. 30 Tablet 1 08/04/2023 Active documented as of this encounter (statuses [...] Addendum Note - Bimal Sharif MD - 08/11/2023 8:50 AM EDTAddended by: BIMAL SHARIF on: 08/11/2023 08:50 AM Modules accepted: Orders * Telephone Encounter - Bimal Sharif MD - 08/11/2023 8:50 AM EDT Ordered IV hydration 1 L of normal saline over 2 hours. * Telephone Encounter - Magaly Medina OSA - 08/11/2023 8:48 AM EDT Added for today * Telephone Encounter - Pilar Viera RN - 08/11/2023 8:21 AM EDT C2D1 TCHP 08/05/23. Patient states that she is nauseous- has had dry heaves, but has not vomited anything up. She is taking zofran which doesn't seen to help much, but has not taken compazine. Advised patient that it isok to alternate these medications to get best control over any nausea. Patient states that she had 1 episode of diarrhea Thursday. Had 1 more episode of diarrhea this morning. She does have lomotil but has not taken this since she only had 1 episode. Patient states that she does have some dizziness/ lightheadedness. She states that she feels very dehydrated. Advised her that we can get her in for fluids, will discuss with Dr Sharif to make sure he doesn't want anything else and call her back. She verbalized understanding. Reviewed with Dr Sharif- patient to come for 1L NSS over 2 hours. Patient accepted appt for today. Scheduling: please add patient for 2 hour appt "hydration" today at 2pm. She is aware of this appt. Dr Sharif: please place order for patient to receive 1L NSS over 2 hours, can give 8mg IV zofran prnnausea as well as 8mg IV decadron prn nausea. Thanks! * Telephone Encounter - Adrienne Castillo OSA - 08/11/2023 8:16 AM EDT Patient called in stating that she has nausea and vomiting. She is asking to speak with someone to see about getting fluids. Sent to Pilar. documented in this encounter Plan of Treatment Upcoming Encounters Date Type Department Care Team (Late st Contact Info) Description 08/11/2023 2:00 PM EDT Hem/Onc Treatment Hematology/Oncology Treatment, [place] [address] [facility] [phone] A[place], Chair 6 Hem Onc [address] [place] [address] 08/25/2023 9:30 AM EDT Laboratory Laboratory [facility] [address] [place] [phone] [place], Lab [address] [facility] [place] [address] 08/25/2023 9:45 AM EDT Office Visit Hematology/Oncology [facility] [address] [place] [phone] Bimal Sharif MD 200 [facility] [place] [address] 08/25/2023 10:15 AM EDT Hem/Onc Treatment Hematology/Oncology Treatment, [place] 200 [facility] [address] [place] [phone] Aida, Chair 4 Hem Onc [facility] 200 [facility] [place] [address] 11/05/2023 7:40 AM EDT Office Visit Family Practice [facility] [address] [place] [address] Charlene York CRNP [address] [place] [address] Health Maintenance Due Date Last Done Comments [...] this encounter Medical Devices Implanted Type Area Shop Director Device Identifier Shelf Expiration Date Model / Serial / Lot Power Port 8fr Sngl Lumen Plas - [id number] Implanted:Qty : 1 on 07/08/2023 by Naun Ratliff MD at OR [facility] Right: Chest CR BARD : PERIPHERAL VASCULAR [id number] 10/23/2024 [id number] / / [id number] documented as of this encounter Visit Diagnoses Diagnosis Malignant neoplasm of upper-outer quadrant of right breast in female, estrogen receptor positive (HCC)- Primary Chemotherapy induced diarrhea Diarrhea Dehydration documented in this encounter Care Teams Chenille Machine Operator Relationship Specialty Start Date End Date Charlene York CRNP 132 [facility] [place] [address] PCP - General Nurse Practitioner 03/11/23 documented as of this encounter
--- OUTSIDE RECORDS SUMMARY | 2023-08-15 09:54 | External Medical Summary | Summary of Care ---
Author Name Unknown Organization [facility] Address [address] [facility] [place] [address] Phone [phone] Care Team Providers Care Solar Tech Name Role Phone Charlene York Primary Care Provider Reason for Visit * Reason Onset Date Comments Advice 08/11/2023 [place] Encounter Details Date Type Department Care Team (Late st Contact Info) Description 08/11/2023 Telephone Hematology/Oncology [facility] [place] [address] [place] [phone] [facility]imal [facility] MD 200 [facility] [address] Advice ([place]) Allergies No known active allergiesdocumented [...] Note - Bimal Sharif MD - 08/11/2023 8:54 AM EDTAddended by: BIMAL SHARIF on: 08/11/2023 08:54 AM Modules accepted: Orders * Addendum Note - Bimal Sharif MD [...] 2:00 PM EDT Hem/Onc Treatment Hematology/Oncology Treatment, [place] 200 [facility] [phone] [place], Chair 6 Hem Onc [address] [place] [address] 08/25/2023 9:30 AM EDT Laboratory Laboratory [facility] [address] [place] [phone] [place], Lab [address] [facility] [place] [address] 08/25/2023 9:45 AM EDT Office Visit Hematology/Oncology [facility] [place] [address] [place] [phone] Bimal Sharif MD [address] [place] [address] 08/25/2023 10:15 AM EDT [facility] [address] [place] [phone] Aida, Chair 4 Hem Onc [facility] [address] [facility] [place] [address] 11/05/2023 7:40 AM EDT Office Visit Family Practice [facility] [address] [place] [address] Charlene York CRNP [address] [facility] [place] [address] Health Maintenance Due Date Last Done Comments [...] this encounter Medical Devices Implanted Type Area Filterer Device Identifier Shelf Expiration Date Model / Serial / Lot Power Port 8fr Sngl Lumen Plas - [id number] Implanted:Qty : 1 on 07/08/2023 by Naun Ratliff MD at [facility] Right: Chest CR BARD : PERIPHERAL VASCULAR [id number] 10/23/2024 [id number] / / [id number] documented as of this encounter Visit Diagnoses Diagnosis Malignant neoplasm of upper-outer quadrant of right breast in female, estrogen receptor positive (HCC)- Primary Chemotherapy induced diarrhea Diarrhea Dehydration documented in this encounter Care Teams Solar Tech Relationship Specialty Start Date End Date Charlene York CRNP [address] [place] [address] PCP - General Nurse Practitioner 03/11/23 documented as of this encounter
--- OUTSIDE RECORDS SUMMARY | 2023-08-15 09:54 | External Medical Summary | Summary of Care ---
Author Name Unknown Organization [facility] Address [address] [facility] [place] [address] Phone [phone] Care Team Providers Care Medical Certification Specialist Name Role Phone Charlene York Primary Care Provider Reason for Visit * Reason Comments IV Therapy Hydration. Encounter Details Date Type Department Care Team (Latest Contact Info) Description 08/11/2023 2:00 PM EDT Hem/Onc Treatment Hematology/Oncology Treatment, [address] [address] Aida, Chair 6 Hem Onc [address] [phone] Dehydration*; Malignant neoplasm of upper-outer quadrant of [...] Sign Reading Time Taken Comments Blood Pressure 109/71 08/11/2023 2:12 PM EDT Pulse 93 08/11/2023 2:12 PM EDT Temperature 36.7 C (98.1 F) 08/11/2023 2:12 PM ED T Respiratory Rate 18 08/11/2023 2:12 PM EDT Oxygen Saturation 98% 08/11/2023 2:12 PM EDT Inhaled Oxygen Concentration - - Weight - - Height - - Body Mass Index - - documented in this encounter Nursing Notes * Melina Thorpe RN - 08/11/2023 4:19 PM EDT Goals: Patient will remain free from injury. Possible barriers to meeting goals: Fall risk d/t ambulation with IV pole. Stability of the patient: Moderately unstable - medium risk of patient condition declining or worsening Summary regarding today's goals: Met: Patient remained free of injury. Patient tolerated infusion well. Discharged in stable condition. Patient tolerated infusion well. Discharged in stable condition. * Melina Thorpe RN - 08/11/2023 2:31 PM EDT Chair 10. Patient arrived for hydration Patient states she has been very nauseas since Thursday, also has some lightheaded/ dizziness. States she feels very dehydrated. VAD accessed. Safety and Risk for Injury Patient will remain free from injury. Ensure appropriate safety devices are available. Provide and maintain safe environment. documented in this encounter Plan of Treatment Upcoming Encounters Date Type Department Care Team (Late st Contact Info) Description 08/25/2023 9:30 AM EDT Laboratory Laboratory [facility] 200 [facility] [place] [phone] Aida, Lab [address] REPLACED BY [facility] [place] [address] 08/25/2023 9:45 AM EDT Office Visit Hematology/Oncology [facility] [place] 200 [facility] [place] [phone] Faustino Sharif MD 200 [facility] [place] [phone] 08/25/2023 10:15 AM EDT Hem/Onc Treatment Hematology/Oncology Treatment, [place] [address] [place] [phone] Aida, Chair 4 Hem Onc [facility] 200 [facility] [place] [phone] 11/05/2023 7:40 AM EDT Office Visit [facility] [address] [facility] [place] [address] Charlene York CRNP [address] [place] [address] Health Maintenance Due Date Last Done Comments [...] this encounter Medical Devices Implanted Type Area Social Work Associate Device Identifier Shelf Expiration Date Model / Serial / Lot Power Port 8fr Sngl Lumen Plas - [id number] Implanted:Qty : 1 on 07/08/2023 by Naun Ratliff MD at OR [facility] Right: Chest CR BARD : PERIPHERAL VASCULAR [id number] 10/23/2024 [id number] / / [id number] documented as of this encounter Visit Diagnoses [...] Lock, PRN Other, IV Flush, Starting on Thu08/11/23 at 1412, Until Thu08/12/23 at 1411, For 24 hours, Do not flush if lock, PICC, or central line not in place; IV infusing or unable to flush. Given 08/11/2023 4:23 PM EDT 500 Units sodium chloride 0.9 % flush central line 10 mL 10 mL, IV Push, PRN Other, IV Flush, Starting on Thu08/11/23 at 1412, Until Thu08/12/23 at 1411, For 24 hours, Do not flush if lock, PICC, or central line not in place; IV infusing or unable to flush. Given 08/11/2023 4:23 PM EDT 10 mL Inactive Administered Medications - up to 3 most recent administrations Medication Order MAR Action Action Date Dose Rate Site dexamethasone sod phosphate PF (Decadron) 10 MG/ML inj 8 mg 8 mg, IV Push, ONCE PRN Nausea, Starting on Thu08/11/23 at 1412, Until Thu08/11/23 at 1427, For 1 dose, PROTECT FROM LIGHT Given 08/11/2023 2:27 PM EDT 8 mg NSS infusion FOR HYDRATION Intravenous, at 500 mL/hr Administer over 2 Hours, ONCE, 1 dose, On Thu08/11/23 at 1515 Start Infusion 08/11/2023 2:22 PM EDT 1,000 mL 500 mL/hr ondansetron (Zofran) inj 8 mg 8 mg, IV Push, ONCE PRN Nausea, Starting on Thu08/11/23 at 1412, Until Thu08/11/23 at 1427, For 1 dose Given 08/11/2023 2:27 PM EDT 8 mg documented in this encounter Care Teams Medical Certification Specialist Relationship Specialty Start Date End Date Charlene York CRNP [address] [place] [address] PCP - General Nurse Practitioner 03/11/23 documented as of this encounter
--- OUTSIDE RECORDS SUMMARY | 2023-08-15 09:54 | External Medical Summary ---
Author Name Unknown Address Unknown Organization K09[facility] [place] [address] Laboratory Report Ordering Provider Test Date Status SALO WALLIS 08/03/2023 07:04:09 Final Observation Date Value Abnormality Reference (Units ) Status SYNC LEUKOCYTES IN BLOOD BY AUTOMATED COUNT 08/03/2023 07:04:09 10.67 4.00-10.80 (K/uL) Final Segs 08/03/2023 07:04:09 92.4 Above high normal 40.0-75.0 (%) Final Lymphs % 08/03/2023 07:04:09 6.7 Below low normal 18.0-42.0 (%) Final Monos 08/03/2023 07:04:09 0.8 Below low normal 1.0-11.0 (%) Final Eosinophils 08/03/2023 07:04:09 0.0 0.0-6.0 (%) Final Basos 08/03/2023 07:04:09 0.1 0.0-2.0 (%) Final Absolute Segs 08/03/2023 07:04:09 9.85 Above high normal 1.80-7.70 (K/uL) Final Lymphs, absolute 08/03/2023 07:04:09 0.72 Below low normal 1.00-4.80 (K/ul) Final Monos, Abs 08/03/2023 07:04:09 0.09 0.00-1.10 (K/uL) Final Eos, Abs 08/03/2023 07:04:09 0.00 0.00-0.70 (K/uL) Final Basos, Abs 08/03/2023 07:04:09 0.01 0.00-0.20 (K/uL) Final Performing Location [facility] [place] [address]
--- OUTSIDE RECORDS SUMMARY | 2023-08-15 09:54 | External Medical Summary | Summary of Care ---
Author Name Unknown Organization [facility] Address [address] [facility] [place] [address] Phone [phone] Care Team Providers Care Sexual Health Physician Name Role Phone Charlene York Primary Care Provider Reason for Visit * Reason Comments IV Therapy Hydration, jaimee camposadlisseth. Encounter Details Date Type Department Care Team (Latest Contact Info) Description 07/17/2023 1:45 PM EDT Hem/Onc Treatment Hematology/Oncology Treatment, [address] [phone] Aida, Chair 7 Hem Onc [address] [address] Dehydration*; Malignant neoplasm of upper-outer quadrant of right breast in female, estrogen receptor positive (HCC) Allergies No known active allergiesdocumented as of this encounter (statuses as of 08/01/2023) Medications Medication Sig Dispensed Refills Start Date [...] as of this encounter (statuses as of 08/01/2023) Active Problems Problem Noted Date Diagnosed Date [...] as of this encounter (statuses as of 08/01/2023) Resolved Problems Problem Noted Date Diagnosed Date Resolved Date Impacted cerumen 03/11/2023 Otitis media 03/11/2023 documented as of this encounter (statuses as of 08/01/2023) Immunizations Name Administration Dates Next Due SARS-COV-2 [...] Description 08/03/2023 7:00 AM EDT Laboratory Laboratory [facility] Ron Parra [address] [place] [phone] Garth Parra [address] [place] [address] 08/03/2023 8:00 AM EDT Office Visit Hematology/Oncology [facility] [place] 200 [facility] [place] [phone] Tatiana Grullon [facility]NP [facility] [address] 08/03/2023 8:30 AM EDT Hem/Onc Treatment Hematology/Oncology Treatment, [place] [address] [facility] [address] [place], [place] [phone] Aida, Chair 4 Hem Onc [facility] 200 [facility] [place] [address] 11/05/2023 7:40 AM EDT Office Visit Family Practice [facility] [address] [place] [address] Charlene York CRNP [address] [place] [address] Health Maintenance Due Date Last Done Comments [...] this encounter Medical Devices Implanted Type Area Division Roadmaster Device Identifier Shelf Expiration Date Model / Serial / Lot Power Port 8fr Sngl Lumen Plas - [id number] Implanted:Qty : 1 on 07/08/2023 by Naun Ratliff MD at OR [facility] Right: Chest CR BARD : PERIPHERAL VASCULAR [id number] 10/23/2024 [id number] / / [id number] documented as of this encounter Visit Diagnoses Diagnosis Dehydration- Primary Malignant neoplasm of upper-outer quadrant of right breast in female, estrogen receptor positive (HCC) documented in this encounter Administered Medications Inactive [...] Given 07/17/2023 2:49 PM EDT 8 mg hEParin 100 UNIT/ML Lock Flush inj 500 Units 500 Units (5 mL), IV Lock, PRN Other, IV Flush, Starting on Thu07/17/23 at 1437, Until Thu07/17/23 at 2019, For 24 hours, Do not flush if lock, PICC, or central line not in place; IV infusing or unable to flush. Given 07/17/2023 3:58 PM EDT 500 Units NSS infusion FOR HYDRATION Intravenous, at 500 mL/hr Administer over 2 Hours, ONCE, 1 dose, On Thu07/17/23 at 1545 Start Infusion 07/17/2023 1:58 PM EDT 1,000 mL 500 mL/hr ondansetron (Zofran) inj 8 mg 8 mg, IV Push, ONCE PRN Nausea, Starting on Thu07/17/23 at 1437, Until Thu07/17/23 at 1447, For 1 dose Given 07/17/2023 2:47 PM EDT 8 mg sodium chloride 0.9 % flush central line 10 mL 10 mL, IV Push, PRN Other, IV Flush, Starting on Thu07/17/23 at 1437, Until Thu07/17/23 at 2019, For 24 hours, Do not flush if lock, PICC, or central line not in place; IV infusing or unable to flush. Given 07/17/2023 3:58 PM EDT 10 mL documented in this encounter Care Teams Sexual Health Physician Relationship Specialty Start Date End Date Charlene York CRNP [address] [place] [address] PCP - General Nurse Practitioner 03/11/23 documented as of this encounter
--- OUTSIDE RECORDS SUMMARY | 2023-08-15 09:54 | External Medical Summary | Summary of Care ---
Author Name Unknown Organization [facility] Address [address] [facility] [place] [address] Phone [phone] Care Team Providers Care Beer Maker Name Role Phone Charlene York Primary Care Provider Reason for Visit * Reason Comments IV Therapy Hydration, jaimee camposadlisseth. Encounter Details Date Type Department Care Team (Latest Contact Info) Description 07/17/2023 1:45 PM EDT Hem/Onc Treatment Hematology/Oncology Treatment, [address] [phone] Aida, Chair 7 Hem Onc [address] [address] Dehydration*; Malignant neoplasm of upper-outer [...] Encounters Date Type Department Care Team (Zachariah Contact Info) Description 08/03/2023 7:00 AM EDT Laboratory Laboratory [facility] [address] [place] [address] Aida, Lab [facility] 200 [facility] [place] [address] 08/03/2023 8:00 AM EDT Office Visit Hematology/Oncology [facility] [place] [address] [place] [phone] Tatiana Grullon CRNP 400 [facility] [place] [address] 08/03/2023 8:30 AM EDT Hem/Onc Treatment Hematology/Oncology [facility] [address] [place] [address] Aida, Chair 4 Hem Onc [facility] [address] [facility] [place] [address] 11/05/2023 7:40 AM EDT Office Visit Family Practice [facility] [address] [place] [address] Charlene York CRNP [address] [place] [address] Health Maintenance Due Date Last Done Comments [...] this encounter Medical Devices Implanted Type Area Black Jack Dealer Device Identifier Shelf Expiration Date Model / Serial / Lot Power Port 8fr Sngl Lumen Plas - [id number] Implanted:Qty : 1 on 07/08/2023 by Naun Ratliff MD at OR [facility] Right: Chest CR BARD : PERIPHERAL VASCULAR [id number] 10/23/2024 [id number] / / [id number] documented as of this encounter Visit Diagnoses [...] mL documented in this encounter Care Teams Beer Maker Relationship Specialty Start Date End Date Charlene York CRNP [address] [place] [address] PCP - General Nurse Practitioner 03/11/23 documented as of this encounter
--- OUTSIDE RECORDS SUMMARY | 2023-08-15 09:54 | External Medical Summary | Summary of Care ---
Author Name Unknown Organization [facility] Address [address] [facility] [place] [address] Phone [phone] Care Team Providers Care Ammonia Refrigeration Worker Name Role Phone Charlene York Primary Care Provider Reason for Visit * Reason Comments Chemotherapy perjeta, ontruzant, carbo, and docetaxel. * Episode Based Medications (Routine) - Authorized Specialty Diagnoses / Procedures Referred By Contalex t Referred To Contact Diagnoses Malignant neoplasm of upper-outer quadrant of right breast in female, estrogen receptor positive (HCC) Encounter for antineoplastic chemotherapy Procedures AK CARBOPLATIN INJECTION AK FOSAPREPITANT INJECTION AK INJECTION, PERTUZUMAB, 1 MG AK INJ ONTRUZANT 10 MG AK INJECTION, UDENYCA 0.5 MG AK DOCETAXEL INJECTION Faustino Sharif MD 200 [facility] [place] [address] Anc Hem/Onc [address] [place] [address] Referral ID Status Reason Start Date Expiration Date V isits Requested Visits Authorized [id number] Authorized 06/11/2023 02/22/2099 999 999 Encounter Details Date Type Department Care Team (Latest Contact Info) Description 08/04/2023 11:15 AM EDT Hem/Onc Treatment Hematology/Oncolog [address], [address] [address] Aida, Chair 3 Hem On[address] [place] [phone] Malignant neoplasm of upper-outer quadrant of right breast in female, estrogen receptor positive (HCC)*; Encounter for antineoplastic chemotherapy Allergies No known active allergiesdocumented as of this encounter (statuses as of 08/04/2023) Medications Medication Sig Dispensed Refills Start Date [...] as of this encounter (statuses as of 08/04/2023) Active Problems Problem Noted Date Diagnosed Date [...] as of this encounter (statuses as of 08/04/2023) Resolved Problems Problem Noted Date Diagnosed Date Resolved Date Impacted cerumen 03/11/2023 Otitis media 03/11/2023 documented as of this encounter (statuses as of 08/04/2023) Immunizations Name Administration Dates Next Due SARS-COV-2 [...] as of this encounter Nursing Notes * Melina Thorpe RN - 08/04/2023 3:28 PM EDT Goals: Patient will remain free from injury. Possible barriers to meeting goals: Fall risk d/t ambulation with IV pole. Stability of the patient: Moderately stable - low risk of patient condition declining or worsening Summary regarding today's goals: Met: Patient remained free of injury. Patient tolerated infusion well. Discharged in stable condition. * Melina Thorpe RN - 08/04/2023 11:20 AM EDT Chair 10. Patient arrived for perjeta, ontruzant, carbo, and docetaxel. Patinet was seen by Dr. Sharif today (see office notes). Per Dr. Sharif going to dose reduce the docetaxel, ok for treatment today. VAD accessed. Chemotherapy/Immunotherapy agents: ONTRUZANT, DOCETAXEL CARBOPLATIN, and PERJETA Consent for chemotherapy drug treatment complete, dated, and signed? yes, date - 06/11/23 Treatment lab parameters met? Yes Has treatment weight changed > than 10%? No Treatment preauthorized? Yes VITALS Filed Vitals: Urine protein: N/A Patient education completed for treatment? Yes Blood transfusion consent signed and complete? NA Return appointment scheduled? Yes Patient had provider visit today? Yes - Ok to release order and treat per provider Functional Status: Functional status at today's visit: Restricted in physically strenuous activity but ambulatory and able to carry out work on a light orsedentary nature, e.g. light house work, office work The drug name, dose, infusion volume, rate and route of administration, expiration date and time, appearance and physical integrity of the drug and rate set on the pump and sequencing of drug administration (as applicable) were verified by me and second sign-in RN. Patient was assessed for symptoms or adverse side effects during treatment. Safety and Risk for Injury Patient will remain free from injury. Ensure appropriate safety devices are available. Provide and maintain safe environment. documented in this encounter Plan of Treatment Upcoming Encounters Date Type Department Care Team (Late st Contact Info) Description 08/05/2023 3:30 PM EDT Immunization/Injectio n Hematology/Oncology Treatment, [place] [address] [facility] [place] [phone] Nurse, Med 200 [facility] [place] [phone] 08/25/2023 9:30 AM EDT Laboratory Laboratory [facility] [place] [address] [place] [place] [phone] Aida, Lab [place] [address] [place] [address] [place] [address] 08/25/2023 9:45 AM EDT Office Visit Hematology/Oncology [facility] [place] [address] [place] [phone] Faustino Sharif MD [address] [place] [address] 08/25/2023 10:15 AM EDT Hem/Onc Treatment Hematology/Oncology Treatment, [place] [address] [place] [phone] [place], Chair 4 Hem Onc [address] [place] [address] 11/05/2023 7:40 AM EDT Office Visit Family [facility] [address] [place] [address] Charlene York CRNP [address] [place] [address] Health Maintenance Due Date Last Done Comments [...] this encounter Medical Devices Implanted Type Area Tree Worker Device Identifier Shelf Expiration Date Model / Serial / Lot Power Port 8fr Sngl Lumen Plas - [id number] Implanted:Qty : 1 on 07/08/2023 by Naun Ratliff MD at OR [facility] Right: Chest CR BARD : PERIPHERAL VASCULAR [id number] 10/23/2024 [id number] / / [id number] documented as of this encounter Visit Diagnoses [...] ONCE PRN Other, Hypersensitivity Reaction, Starting on Thu08/04/23 at 1103, Until Thu08/05/23 at 1102, For 24 hours EPINEPHrine 1 MG/ML inj 0.3 mg 0.3 mg, Intramuscular, ONCE PRN Other, Hypersensitivity Reaction or Anaphylaxis, Starting on Thu08/04/23 at 1103, Until Thu08/05/23 at 1102, For 24 hours hEParin 100 UNIT/ML Lock Flush inj 500 Units 500 Units (5 mL), IV Lock, PRN Other, IV Flush, Starting on Thu08/04/23 at 1103, Until Thu08/05/23 at 1102, For 24 hours, Do not flush if lock, PICC, or central line not in place; IV infusing or unable to flush. Given 08/04/2023 3:15 PM EDT 500 Units Hydrocortisone Sod Suc (PF) (Solu-Cortef) inj 100 mg 100 mg, IV Push, ONCE PRN Other, Hypersensitivity Reaction, Starting on Thu08/04/23 at 1103, Until Thu08/05/23 at 1102, For 24 hours LORAzepam (Ativan) tab 0.5 mg 0.5 mg, Oral, ONCE PRN Anxiety, Nausea, Starting on Thu08/04/23 at 1215, Until Discontinued NSS infusion Intravenous, at 50 mL/hr, PRN, Starting on Thu08/04/23 at 1215, Until Discontinued, Maintenance line Start Infusion 08/04/2023 11:11 AM EDT 50 mL/hr oxygen GAS Inhalation, OXYGEN, First dose on Thu08/04/23 at 1145, Until Discontinued, Device/Managed by: Low Flow Device, [...] Push, PRN Other, IV Flush, Starting on Thu08/04/23 at 1103, Until Thu08/05/23 at 1102, For 24 hours, Do not flush if lock, PICC, or central line not in place; IV infusing or unable to flush. Given 08/04/2023 3:15 PM EDT 10 mL Inactive Administered Medications - up to 3 most recent administrations Medication Order MAR Action Action Date Dose Rate Site Acetaminophen (Tylenol) tab 650 mg 650 mg, Oral, ONCE, On Thu08/04/23 at 1215, For 1 dose, Maximum of 4 grams (4000 mg) per day. Given 08/04/2023 11:41 AM EDT 650 mg CARBOplatin (Paraplatin) 538 mg in D5W 250 mL infusion 538 mg (rounded from 537.6 mg, Target AUC = 6), IV Piggyback, at 510 mL/hr Administer over 30 Minutes, PROTECT FROM LIGHT (Max Creatinine Clearance at 125 ml/min for calculating AUC dose), ONCE, 1 dose, On Thu08/04/23 at 1345 Start Infusion 08/04/2023 1:33 PM EDT 538 mg 510 mL/hr diphenhydrAMINE (Benadryl) cap 50 mg 50 mg, Oral, ONCE, On Thu08/04/23 at 1215, For 1 dose Given 08/04/2023 11:41 AM EDT 50 mg DOCEtaxel (Taxotere) 100 mg in NSS 250 mL infusion 100 mg (rounded from 103.8 mg = 60 mg/m2 1.73 m2 Treatment Plan BSA from Recorded weight), IV Piggyback, at 260 mL/hr Administer over 60 Minutes, ONCE, 1 dose, On Thu08/04/23 at 1415 Start Infusion 08/04/2023 2:06 PM EDT 100 mg 260 mL/hr Fosaprepitant Dimeglumine (Emend) 150 mg, ondansetron (Zofran) 16 mg, dexamethasone sodium phosphate 12 mg in NSS 250 mL Infusion 150 mg, IV Piggyback, ONCE, 1 dose, On Thu08/04/23 at 1215, Administer over 30 Minutes, Give 30 minutes prior to chemotherapy. Infuse over 30 minutes. Start Infusion 08/04/2023 11:41 AM EDT 150 mg 538.4 mL/hr PERtuzumab (Perjeta) 420 mg in NSS 250 mL infusion 420 mg, IV Piggyback, ONCE, 1 dose, On Thu08/04/23 at 1245, Administer over 30 Minutes Start Infusion 08/04/2023 12:18 PM EDT 420 mg 510 mL/hr Trastuzumab-dttb (Ontruzant) 386.4 mg in NSS 250 mL infusion 386.4 mg (6 mg/kg 64.4 kg Treatment plan Recorded weight), IV Piggyback, ONCE, 1 dose, On Thu08/04/23 at 1315, Administer over 30 Minutes Start Infusion 08/04/2023 12:55 PM EDT 386.4 mg 510 mL/hr documented in this encounter Care Teams Ammonia Refrigeration Worker Relationship Specialty Start Date End Date Charlene York CRNP [address] [place] [address] PCP - General Nurse Practitioner 03/11/23 documented as of this encounter
--- OUTSIDE RECORDS SUMMARY | 2023-08-15 09:54 | External Medical Summary ---
Author Name Unknown Address Unknown Organization K09:[facility] [address] [place] [address] Laboratory Report Ordering Provider Test Date Status SALO WALLIS 08/03/2023 07:04:09 Final Observation Date Value Abnormality Reference (Units ) Status BUN 08/03/2023 07:04:09 21 Above high normal 6-20 (mg/dL) Final Creatinine 08/03/2023 07:04:09 0.8 0.5-1.0 (mg/dL) Final Glomerular filtration rate/1.73 sq M.predicted [Volume Rate/Area] in Serum, Plasma or Blood by Creatinine-based formula (CKD-EPI) 08/03/2023 07:04:09 74 >=60 (mL/min) Final eGFR is calculated based on the CKD-EPI 2020 equation Sodium 08/03/2023 07:04:09 141 135-146 (m mol/L) Final Potassium 08/03/2023 07:04:09 3.8 3.5-5.1 (m mol/L) Final Cl 08/03/2023 07:04:09 106 98-107 (mm ol/L) Final CO2 08/03/2023 07:04:09 25 22-32 (mmo l/L) Final Anion gap 08/03/2023 07:04:09 10 7-15 (mmol /L) Final Glucose 08/03/2023 07:04:09 181 Above high normal 70 -120 (mg/dL) Final Albumin 08/03/2023 07:04:09 4.0 3.8-5.0 (g /dL) Final AST (Aspartate aminotransferase) 08/03/2023 07:04:09 26 10-35 (U/L) Tonny al Alk Phos 08/03/2023 07:04:09 76 35-130 (U/ L) Final Bilirubin, Total 08/03/2023 07:04:09 0.3 <=1 .2 (mg/dL) Final Calcium 08/03/2023 07:04:09 9.8 8.4-10.2 ( mg/dL) Final Protein 08/03/2023 07:04:09 6.6 6.0-8.3 (g /dL) Final ALT (Alanine aminotransferase) 08/03/2023 07:04:09 29 10-35 (U/L) Tonny vergara Performing Location [facility] [address] [place] [address]
--- OUTSIDE RECORDS SUMMARY | 2023-08-15 09:54 | External Medical Summary | Summary of Care ---
Author Name Unknown Organization [facility] Address [address] [facility] [place] [address] Phone [phone] Care Team Providers Care Relay Shop Supervisor Name Role Phone Charlene York Primary Care Provider Reason for Visit * Reason Onset Date Comments Advice 08/11/2023 Kole Encounter Details Date Type Department Care Team (Late st Contact Info) Description 08/11/2023 Telephone Hematology/Oncology Nilda Parra [place] [address] [place] [address] Bimal Sharif MD 200 [facility] [address] Advice (Kole) Allergies No known active allergiesdocumented [...] 2:00 PM EDT Hem/Onc Treatment Hematology/Oncology Treatment, [place] 200 [facility] [address] Aida, Chair 6 Hem Onc [address] [place] [address] 08/25/2023 9:30 AM EDT Laboratory Laboratory [facility] [address] [place] [phone] Aida, Lab Scenery 200 [facility] [place] [address] 08/25/2023 9:45 AM EDT Office Visit Hematology/Oncology [facility] [place] [address] [place] [phone] Bimal Sharif MD [address] [place] [address] 08/25/2023 10:15 AM EDT [facility] [address] [place] [phone] Aida, Chair [address] [facility] 200 [facility] [place] [address] 11/05/2023 7:40 AM EDT Office Visit Family Practice [facility] [address] [place] [address] Charlene York CRNP [address] [facility] [place] [address] Health Maintenance Due Date Last Done Comments [...] this encounter Medical Devices Implanted Type Area Nail Artist Device Identifier Shelf Expiration Date Model / Serial / Lot Power Port 8fr Sngl Lumen Plas - [id number] Implanted:Qty : 1 on 07/08/2023 by Naun Ratliff MD at [facility] Right: Chest CR BARD : PERIPHERAL VASCULAR [id number] 10/23/2024 [id number] / / [id number] documented as of this encounter Visit Diagnoses Diagnosis Malignant neoplasm of upper-outer quadrant of right breast in female, estrogen receptor positive (HCC)- Primary Chemotherapy induced diarrhea Diarrhea Dehydration documented in this encounter Care Teams Relay Shop Supervisor Relationship Specialty Start Date End Date Charlene York CRNP [address] [place] [address] PCP - General Nurse Practitioner 03/11/23 documented as of this encounter
--- OUTSIDE RECORDS SUMMARY | 2023-08-15 09:54 | External Medical Summary | Summary of Care ---
Author Name Unknown Organization [facility] Address [address] [facility] [place] [address] Phone [phone] Care Team Providers Care Mash Filter Cloth Changer Name Role Phone Charlene York Primary Care Provider Reason for Visit * Reason Comments Follow Up Chemotherapy Encounter Details Date Type Department Care Team (Late st Contact Info) Description 08/04/2023 10:30 AM EDT Office Visit Hematology/Oncology Nilda Parra [place] 200 [facility] [place] [phone] Faustino Sharif MD 200 [facility] [place] [address] Malignant neoplasm of upper-outer quadrant of right breast in female, estrogen receptor positive (HCC)*; Chemotherapy induced diarrhea Allergies No known active allergiesdocumented as of [...] Sign Reading Time Taken Comments Blood Pressure 144/82 08/04/2023 10:23 AM EDT Pulse 71 08/04/2023 10:23 AM EDT Temperature 36.3 C (97.4 F) 08/04/2023 10:23 AM E DT Respiratory Rate 15 08/04/2023 10:23 AM EDT Oxygen Saturation 97% 08/04/2023 10:23 AM EDT Inhaled Oxygen Concentration - - Weight 64 kg (141 lb) 08/04/2023 10:23 AM EDT Height - - Body Mass Index 22.76 07/08/2023 8:35 AM EDT documented in this encounter Progress Notes * Faustino Sharif MD - 08/04/2023 10:30 AM EDT Hematology/Oncology Outpatient Consult Note Kavon Parra 200 Nilda Anton [facility] [place] [address] SUE RIVAS MR # [id number] :1950 72 years old female, Date of consultation:05/13/2023 DIAGNOSIS: Right breast cancer, ER and TN positive, HER2 Myrna positive. Based on MRI of the breast, It is about 2.2 cm, also has 3 satellite lesions in the right breast CURRENT TREATMENT: - neoadjuvant chemotherapy TCH P. 08/03/2020, she is here for cycle 2 with TCH P. because of increasing diarrhea, decided to cut down dose of docetaxel by 20% She is at high-risk for febrile neutropenia, [...] ER moderately positive in 50% million cells, TN strongly positive in 90 was malignamt cells. [...] good symptom control. She follows up with disaster response director in [place]. INTERVAL HISTORY: She has come to the clinic for the follow-up, she came to clinic by herself Earlier she received 1 cycle of chemotherapy TCH P, she says that following that she would increasing diarrhea, dehydration, she was admitted at [facility], I reviewed hospital records,she was there for about 3 days and then she was discharged home, now diarrhea has improved, had weight loss earlier but now gained weight, stable weight around 141 lb. No neuropathy symptoms. No fever. No nausea or vomiting. No increasing headache. 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 Otitis media 02/23/2005 Past Surgical History: Procedure Laterality Date DENTAL SURGERY PROCEDURE NEC 1989 INSER TUNN ACC DEV;5 YRS/OLDER Right 07/08/2023 INSERT TUNNELED CENTRAL VENOUS ACCESS WITH SUBQ PORT performed by Naun Ratliff MD at OR [facility] LAPAROSCOPY; CHOLECYSTECTOMY 12/01/2007 Dr Bergeron at [place] [facility] LIGATE/CUT OVIDUCT(S) AT SURGERY TN ARTHROSCOPY KNEE DIAGNOSTIC W/WO SYNOVIAL BX SPX Right 2004 RIGHT SHOULDER rc [facility] [place] ARTHRP KNE CONDYLE&PLATU MEDIAL&LAT COMPARTMENTS Left 2019 [facility] ortho US GUIDED BREAST BIOPSY RIGHT Right 04/29/2023 Current Outpatient Medications Medication Sig Dispense Refill FOLIC ACID 1 MG OR TABS 1 TABLET DAILY 0 0 MOBIC 7.5 MG PO TABS One pill by mouth once a day for pain as needed Methotrexate 2.5 MG Oral Tablet Take by mouth once a week. 6 tablets once a week (Patient not taking: Reported on 07/28/2023) Calcium 600-10 MG-MCG Oral Tablet Chewable Take by mouth 2 times a day. Orencia 250 MG Intravenous Solution Reconstituted (Abatacept) Administer intravenously. (Patient not taking: Reported on 07/28/2023) dexAMETHasone 4 MG Oral Tablet Take 2 [...] for this visit. Family History Problem Relation Name Age of Onset Heart attack Mother 70 [...] on file Occupational History Occupation: Retired from [employer] Tobacco Use Smoking status: Never Smokeless tobacco: Never Vaping Use Vaping status: Never Used Substance and Sexual Activity Alcohol use: No Drug use: Never Sexual activity: Not Currently Partners: Male Other Topics Concern Not on file Social History Narrative Lives in [place] with husbands No pets in the home Social Determinants of Health Financial Resource Strain: Not on file Food Insecurity: Not on file Transportation Needs: Not on file Physical Activity: Not on file Stress: Not on file Social Connections: Not on file Intimate Partner Violence: Not on file Housing Stability: Not on file On Exam: There were no vitals taken for this visit. - Alert and oriented x3, well built woman, not in any distress. - HEENT: no icterus, no pallor, Throat: Normal. - Neck: No palpable cervical lymphadenopathy. - Chest: clear to auscultation. - Abdomen: soft, nontender, no hepatomegaly, no splenomegaly. - No focal neuro deficit. - Extremities: no finger clubbing, no leg edema. LABS: I reviewed her blood workup done on 08/03/2023: -WBC 51694, H&H of 11.5/36.2, Platelet count 395959 -BUN/Creat: 21/0.8, normal LFT. IMAGING: As described above. ASSESSMENT [...] 2.2 cm mass, neoadjuvant chemotherapy can be considered,Started on TCH P, received 1st treatment about 3 weeks back. She did receive prophylactic Pegfilgrastim. Subsequently she would increasing diarrhea, required hospitalization, now she has recovered well. She would some weight loss earlier but now weight gained so stable weight around 141 lb She says that previously palpable breast mass is no longer palpable. She will continue to use Imodium for the symptomatic, also e-prescribed Lomotil. Would like to cut down the dose of docetaxel by 20% and see how she tolerates She will receive prophylactic Pegfilgrastim to prevent febrile neutropenia. She has underlying rheumatoid arthritis, she is [...] documented in this encounter Nursing Notes * Bridgette Hussein MED ASSIST - 08/04/2023 10:24 AM EDT Patient identifed by name and birthdate Do you have any concerns about pain management for today's visit? Yes. Patient instructed to discuss pain concerns with provider during the visit today Living Will or Advance Directive for Health Care as noted on the problem list. [email or web address] is a way you can talk to your provider on line through e-mail. Would you like to sign up? I can activate it for you? ALREADY ACTIVE Filed Vitals: 08/04/23 1023 BP: 144/82 Pulse: 71 Resp: 15 Temp: 36.3 C (97.4 F) TempSrc: Tympanic SpO2: 97% Weight: 64 kg (141 lb) Patient was instructed to not get up on the exam table/exam chair until directed and assisted by their provider; patient is to remain seated in the chair/ wheelchair/ exam table/ exam chair for fall prevention and safety reasons. Patient is aware to have assistance to step down off exam table/exam chair with personnel. Patient voiced full comprehension of instructions. Approximately 3 weeks ago pt was admitted to [facility] for dehydration for 2 days. documented in this encounter Plan of Treatment Upcoming Encounters Date Type Department Care Team (Late st Contact Info) Description 08/05/2023 3:30 PM EDT Immunization/Injectio n Hematology/Oncology Treatment, [place] [address] [place] [phone] Nurse, Med [address] [place] [address] [place] [address] 08/25/2023 9:30 AM EDT Laboratory Laboratory [facility] [place] 200 [facility] [place] [phone] [facility] [address] [facility] [place] [address] 08/25/2023 9:45 AM EDT Office Visit [facility] 200 [facility] [place], [place] [phone] Faustino Sharif MD 200 [facility] [place] [address] 08/25/2023 10:15 AM EDT Hem/Onc Treatment Hematology/Oncology Treatment, [place] 200 [facility] [place] [address] Aida, Chair 4 Hem Onc [facility] 200 [facility] [place] [address] 11/05/2023 7:40 AM EDT Office Visit Family Practice [facility] [address] [place] [address] Charlene York CRNP [address] [place] [address] Health Maintenance Due Date Last Done Comments [...] this encounter Medical Devices Implanted Type Area Sales Professional Bilingual Device Identifier Shelf Expiration Date Model / Serial / Lot Power Port 8fr Sngl Lumen Plas - [id number] Implanted:Qty : 1 on 07/08/2023 by Naun Ratliff MD at [facility] Right: Chest CR BARD : PERIPHERAL VASCULAR [id number] 10/23/2024 [id number] / / [id number] documented as of this encounter Visit Diagnoses Diagnosis Malignant neoplasm of upper-outer quadrant of right breast in female, estrogen receptor positive (HCC)- Primary Chemotherapy induced diarrhea Diarrhea documented in this encounter Care Teams Mash Filter Cloth Changer Relationship Specialty Start Date End Date Charlene York CRNP 132 [facility] [place] [address] PCP - General Nurse Practitioner 03/11/23 documented as of this encounter
--- OUTSIDE RECORDS SUMMARY | 2023-08-15 09:54 | External Medical Summary | Summary of Care ---
Author Name Unknown Organization [facility] Address [address] [facility] [place] [address] Phone [phone] Care Team Providers Care Operations Project Manager Name Role Phone Charlene York Primary Care Provider Reason for Visit * Reason Comments IV Therapy Hydration, jaimee camposadlisseth. Encounter Details Date Type Department Care Team (Latest Contact Info) Description 07/17/2023 1:45 PM EDT Hem/Onc Treatment Hematology/Oncology Treatment, [address] [phone] Aida, Chair 7 Hem Onc [address] [address] Dehydration*; Malignant neoplasm of upper-outer [...] Description 08/03/2023 7:00 AM EDT Laboratory Laboratory [facility] [address] [place] [address] Aida, Lab [facility] 200 [facility] [place] [address] 08/03/2023 8:00 AM EDT Office Visit Hematology/Oncology [facility] [place] [address] [place] [phone] Tatiana Grullon CRNP 400 [facility] [place] [address] 08/03/2023 8:30 AM EDT Hem/Onc Treatment Hematology/Oncology [facility] [address] [place] [address] Aida, Chair 4 Hem Onc [facility] 200 [place] [address] 11/05/2023 7:40 AM EDT Office Visit Family Practice [facility] [address] [place] [address] Charlene York CRNP [address] [place] [address] Health Maintenance Due Date Last Done Comments [...] this encounter Medical Devices Implanted Type Area Psychometrician Device Identifier Shelf Expiration Date Model / Serial / Lot Power Port 8fr Sngl Lumen Plas - [id number] Implanted:Qty : 1 on 07/08/2023 by Naun Raltiff MD at OR [facility] Right: Chest CR BARD : PERIPHERAL VASCULAR [id number] 10/23/2024 [id number] / / [id number] documented as of this encounter Visit Diagnoses [...] mL documented in this encounter Care Teams Operations Project Manager Relationship Specialty Start Date End Date Charlene York CRNP 132 [place] [address] PCP - General Nurse Practitioner 03/11/23 documented as of this encounter
--- OUTSIDE RECORDS SUMMARY | 2023-08-15 09:54 | External Medical Summary ---
Author Name Unknown Address Unknown Organization K[facility] [place] [address] Laboratory Report Ordering Provider Test Date Status SALO WALLIS 08/03/2023 07:04:09 Final Observation Date Value Abnormality Reference (Units ) Status WBC, Total 08/03/2023 07:04:09 10.67 4.00-10.8 0 (K/uL) Final RBC 08/03/2023 07:04:09 3.84 3.85-5.15 (M/uL) Final Hemoglobin 08/03/2023 07:04:09 11.5 Below low normal 12 .0-15.3 (g/dL) Final HCT 08/03/2023 07:04:09 36.2 36.0-45.2 (%) Final MCV 08/03/2023 07:04:09 94.3 81.5-97.5 (fL) Final MCH 08/03/2023 07:04:09 29.9 27.0-34.0 (pg) Final MCHC 08/03/2023 07:04:09 31.8 32.0-36.0 (g/dL) Final RDW 08/03/2023 07:04:09 13.8 11.5-15.5 (%) Final Platelets 08/03/2023 07:04:09 478 Above high normal 14 0-400 (K/uL) Final MPV 08/03/2023 07:04:09 9.4 6.6-11.1 ( fL) Final Performing Location [facility] [place] [address]
--- OUTSIDE RECORDS SUMMARY | 2023-08-15 09:54 | External Medical Summary | Summary of Care ---
Author Name Unknown Organization [facility] Address [address] [facility] [place] [address] Phone [phone] Care Team Providers Care Book Cutter Name Role Phone Charlene York Primary Care Provider Reason for Visit * Reason Onset Date Comments Advice 08/11/2023 K[place] Encounter Details Date Type Department Care Team (Late st Contact Info) Description 08/11/2023 Telephone Hematology/Oncology Nilda Parra [place] [address] [place] [address] Bimal Sharif MD 200 [facility] [address] Advice (Kole) Allergies No known active allergiesdocumented [...] 2:00 PM EDT Hem/Onc Treatment Hematology/Oncology Treatment, [place] 200 [facility] [address] Aida, Chair 6 Hem Onc [address] [place] [address] 08/25/2023 9:30 AM EDT Laboratory Laboratory [facility] [address] [place] [phone] Aida, Lab [address]en[address] 200 [facility] [place] [address] 08/25/2023 9:45 AM EDT Office Visit Hematology/Oncology [facility] [place] [address] [place] [phone] Bimal Sharif MD [address] [place] [address] 08/25/2023 10:15 AM EDT [facility] [address] [place] [phone] Aida, Chair 4 Hem Onc [facility] 200 [facility] [place] [address] 11/05/2023 7:40 AM EDT Office Visit Family Practice [facility] [address] [place] [address] Charlene York CRNP [address] [facility] [place] [address] Health Maintenance Due Date Last Done Comments [...] this encounter Medical Devices Implanted Type Area Florist'S Decorator Device Identifier Shelf Expiration Date Model / Serial / Lot Power Port 8fr Sngl Lumen Plas - [id number] Implanted:Qty : 1 on 07/08/2023 by Naun Ratliff MD at [facility] Right: Chest CR BARD : PERIPHERAL VASCULAR [id number] 10/23/2024 [id number] / / [id number] documented as of this encounter Visit Diagnoses Diagnosis Malignant neoplasm of upper-outer quadrant of right breast in female, estrogen receptor positive (HCC)- Primary Chemotherapy induced diarrhea Diarrhea Dehydration documented in this encounter Care Teams Book Cutter Relationship Specialty Start Date End Date Charlene York CRNP [address] [place] [address] PCP - General Nurse Practitioner 03/11/23 documented as of this encounter
--- OUTSIDE RECORDS SUMMARY | 2023-08-15 09:55 | External Medical Summary | Summary of Care ---
Author Name Unknown Organization [facility] Address [address] [facility] [place] [address] Phone [phone] Care Team Providers Care Tongue Lining Stitcher Name Role Phone Charlene York Primary Care Provider Reason for Visit * Reason Comments Medication Administration Udencya * Episode Based Medications (Routine) - Authorized Specialty Diagnoses / Procedures Referred By Contac t Referred To Contact Diagnoses Malignant neoplasm of upper-outer quadrant of right breast in female, estrogen receptor positive (HCC) Encounter for antineoplastic chemotherapy Procedures ND CARBOPLATIN INJECTION ND FOSAPREPITANT INJECTION ND INJECTION, PERTUZUMAB, 1 MG ND INJ ONTRUZANT 10 MG ND INJECTION, UDENYCA 0.5 MG ND DOCETAXEL INJECTION Faustino Sharif MD 200 [facility] [place] [address] Anc Hem/Onc [address] [address] Referral ID Status Reason Start Date Expiration Date V isits Requested Visits Authorized [id number] Authorized 06/11/2023 02/22/2099 999 [id number] Encounter Details Date Type Department Care Team (Latest Contact Info) Description 07/14/2023 3:00 PM EDT Immunization/ Injection Hematology/Oncology Treatment, [address] [address] Nurse, Med 200 [facility] [place] [address] Malignant neoplasm of upper-outer quadrant of right breast in female, estrogen receptor positive (HCC)*; Encounter for antineoplastic chemotherapy Allergies No known active allergiesdocumented as of this encounter (statuses as of 07/30/2023) Medications Medication Sig Dispensed Refills Start Date [...] as of this encounter (statuses as of 07/30/2023) Active Problems Problem Noted Date Diagnosed Date [...] as of this encounter (statuses as of 07/30/2023) Resolved Problems Problem Noted Date Diagnosed Date Resolved Date Impacted cerumen 03/11/2023 Otitis media 03/11/2023 documented as of this encounter (statuses as of 07/30/2023) Immunizations Name Administration Dates Next Due SARS-COV-2 [...] Description 08/03/2023 7:00 AM EDT Laboratory Laboratory [facility] [place] [address] [place] [phone] Garth Parra [place] [address] [place] [address] 08/03/2023 8:00 AM EDT Office Visit Hematology/Oncology Yasmin Aida [place] [address] [place] [address] [phone] Tatiana Grullon CRNP 400 [facility] [place] [address] 08/03/2023 8:30 AM EDT Hem/Onc Treatment Hematology/Oncology Treatment, [place] [address] [place], [place] [address] Aida, Chair 4 Hem Onc [place] [address] [place] [address] 11/05/2023 7:40 AM EDT Office Visit [facility] [address] [place] [address] Charlene York CRNP [address] [place] [address] Health Maintenance Due Date Last Done Comments [...] this encounter Medical Devices Implanted Type Area Director Of Valuation Device Identifier Shelf Expiration Date Model / Serial / Lot Power Port 8fr Sngl Lumen Plas - [id number] Implanted:Qty : 1 on 07/08/2023 by Naun Ratliff MD at OR [facility] Right: Chest CR BARD : PERIPHERAL VASCULAR [id number] 10/23/2024 [id number] / / [id number] documented as of this encounter Visit Diagnoses Diagnosis Malignant neoplasm of upper-outer quadrant of right breast in female, estrogen receptor positive (HCC)- Primary Encounter for antineoplastic chemotherapy documented in this encounter Administered Medications Inactive Administered Medications - up to 3 most recent administrations Medication Order MAR Action Action Date Dose Rate Site Pegfilgrastim-cbqv (Udenyca) inj 6 mg 6 mg, Subcutaneous, ONCE, On Thu07/14/23 at 1530, For 1 dose Given 07/14/2023 3:01 PM EDT 6 mg Arm R ight Upper documented in this encounter Care Teams Tongue Lining Stitcher Relationship Specialty Start Date End Date Charlene York CRNP [address] [place] [address] PCP - General Nurse Practitioner 03/11/23 documented as of this encounter
--- OUTSIDE RECORDS SUMMARY | 2023-08-15 09:55 | External Medical Summary | Summary of Care ---
Author Name Unknown Organization [facility] Address [address] [facility] [place] [address] Phone [phone] Care Team Providers Care Rehabilitation Coordinator Name Role Phone Charlene York Primary Care Provider Reason for Visit * Reason Comments Chemotherapy TCHP D1C1 * Episode Based Medications (Routine) - Authorized Specialty Diagnoses / Procedures Referred By Contac t Referred To Contact Diagnoses Malignant neoplasm of upper-outer quadrant of right breast in female, estrogen receptor positive (HCC) Encounter for antineoplastic chemotherapy Procedures GA CARBOPLATIN INJECTION GA FOSAPREPITANT INJECTION GA INJECTION, PERTUZUMAB, 1 MG GA INJ ONTRUZANT 10 MG GA INJECTION, UDENYCA 0.5 MG GA DOCETAXEL INJECTION Faustino Sharif MD 200 [place] [address] Anc Hem/Onc [address] [address] Referral ID Status Reason Start Date Expiration Date V isits Requested Visits Authorized [id number] Authorized 06/11/2023 02/22/2099 999 999 Encounter Details Date Type Department Care Team (Latest Contact Info) Description 07/13/2023 9:00 AM EDT Hem/Onc Treatment Hematology/Oncolog y Treatment, [address] [address] Aida, Chair 1 Hem Onc [address] [place] [address] Malignant neoplasm of upper-outer quadrant of right breast in female, estrogen receptor positive (HCC)*; Encounter for antineoplastic chemotherapy Allergies No known active allergiesdocumented as of this encounter (statuses as of 07/31/2023) Medications Medication Sig Dispensed Refills Start Date [...] as of this encounter (statuses as of 07/31/2023) Active Problems Problem Noted Date Diagnosed Date [...] as of this encounter (statuses as of 07/31/2023) Resolved Problems Problem Noted Date Diagnosed Date Resolved Date Impacted cerumen 03/11/2023 Otitis media 03/11/2023 documented as of this encounter (statuses as of 07/31/2023) Immunizations Name Administration Dates Next Due SARS-COV-2 [...] Description 08/03/2023 7:00 AM EDT Laboratory Laboratory [facility] [address] [place] [phone] Aida Lab [address] [facility] [place] [address] 08/03/2023 8:00 AM EDT Office Visit Hematology/Oncology [facility] 200 [facility] [place] [phone] Tatiana Grullon CRNP [facility] [place] [address] 08/03/2023 8:30 AM EDT Hem/Onc Treatment Hematology/Oncology Treatment, [place] [address] [place] [phone] Aida, Chair 4 Hem Onc [address] [place] [address] 11/05/2023 7:40 AM EDT Office Visit Family Practice [facility] [address] [place] [address] Charlene York CRNP [address] [place] [address] Health Maintenance Due Date Last Done Comments [...] this encounter Medical Devices Implanted Type Area Boat Puller Device Identifier Shelf Expiration Date Model / Serial / Lot Power Port 8fr Sngl Lumen Plas - [id number] Implanted:Qty : 1 on 07/08/2023 by Naun Ratliff MD at OR [facility] Right: Chest CR BARD : PERIPHERAL VASCULAR [id number] 10/23/2024 [id number] / / [id number] documented as of this encounter Visit Diagnoses Diagnosis Malignant neoplasm of upper-outer quadrant of right breast in female, estrogen receptor positive (HCC)- Primary Encounter for antineoplastic chemotherapy documented in this encounter Administered Medications Inactive Administered Medications - up to 3 most recent administrations Medication Order MAR Action Action Date Dose Rate Site Acetaminophen (Tylenol) tab 650 mg 650 mg, Oral, ONCE, On 07/13/23 at 1030, For 1 dose, Maximum of [...] 9:34 AM EDT 150 mg 578.4 mL/hr hEParin 100 UNIT/ML Lock Flush inj 500 Units 500 Units (5 mL), IV Lock, PRN Other, IV Flush, Starting on Thu07/13/23 at 0918, Until Thu07/13/23 at 1859, For 24 hours, Do not flush if lock, PICC, or central line not in place; IV infusing or unable to flush. Given 07/13/2023 2:23 PM EDT 500 Units NSS infusion Intravenous, at 50 mL/hr, PRN, Starting on Thu07/13/23 at 1030, Until Thu07/13/23 at 1859, Maintenance line Start Infusion 07/13/2023 9:25 AM EDT 50 mL/hr PERtuzumab (Perjeta) 840 mg in NSS 250 mL infusion 840 mg, IV Piggyback, ONCE, 1 dose, On Thu07/13/23 at 1100, Administer over 60 Minutes Start Infusion 07/13/2023 10:07 AM EDT 840 mg 303 mL/hr sodium chloride 0.9 % flush central line 10 mL 10 mL, IV Push, PRN Other, IV Flush, Starting on Thu07/13/23 at 0918, Until Thu07/13/23 at 1859, For 24 hours, Do not flush if lock, PICC, or central line not in place; IV infusing or unable to flush. Given 07/13/2023 2:22 PM EDT 20 mL Trastuzumab-dttb (Ontruzant) 515.13 mg in NSS 250 mL infusion 515.13 mg (rounded from 515.2 mg = 8 mg/kg 64.4 kg Treatment plan Recorded weight), IV Piggyback, ONCE, 1 dose, On Thu07/13/23 at 1230, Administer over 90 Minutes Start Infusion 07/13/2023 11:13 AM EDT 515.13 mg 183.33 mL/hr documented in this encounter Care Teams Rehabilitation Coordinator Relationship Specialty Start Date End Date Charlene York CRNP [address] [place] [address] PCP - General Nurse Practitioner 03/11/23 documented as of this encounter
--- OUTSIDE RECORDS SUMMARY | 2023-08-15 09:55 | External Medical Summary | Summary of Care ---
Author Name Unknown Organization [facility] Address [address] [facility] [place] [address] Phone [phone] Care Team Providers Care Pit Boss Name Role Phone Charlene York Primary Care Provider Reason for Visit * Reason Onset Date Comments Information 04/29/2023 Encounter Details Date Type Department Care Team (Late st Contact Info) Description 04/29/[address] [facility] [place] [address] Charlene York CRNP [address] [place] [address] Information Allergies No known active allergiesdocumented as of this encounter (statuses as of 07/29/2023) Medications Medication Sig Dispensed Refills Start Date [...] Intravenous Solution Reconstituted (Abatacept) Administer intravenously. Active documented as of this encounter (statuses as of 07/29/2023) Active Problems Problem Noted Date Diagnosed Date [...] as of this encounter (statuses as of 07/29/2023) Resolved Problems Problem Noted Date Diagnosed Date Resolved Date Impacted cerumen 03/11/2023 Otitis media 03/11/2023 documented as of this encounter (statuses as of 07/29/2023) Immunizations Name Administration Dates Next Due SARS-COV-2 [...] encounter Miscellaneous Notes * Telephone Encounter - Shannan Irene RDMS - 04/29/2023 1:11 PM EST Following completion of right breast ultrasound guided core biopsy, discharge instructions were provided and patient expressed understanding. Specimen was delivered to the lab at 12:53p. documented in this encounter Plan of Treatment Upcoming Encounters Date Type Department Care Team (Late st Contact Info) Description 08/03/2023 7:00 AM EDT Laboratory Laboratory [facility] [place] [address] [place] [address] Aida, Lab Scenery [address] [facility] [place] [address] 08/03/2023 8:00 AM EDT Office Visit Hematology/Oncology [facility] [place] [address] [place] [phone] Tatiana Grullon CRNP 400 [facility] [place] [id number] 08/03/2023 8:30 AM EDT Hem/Onc Treatment Hematology/Oncology Treatment, [place] [address] [place] [address] Aida, Chair 4 Hem Onc Scenery 200 [place] [address] 11/05/2023 7:40 AM EDT Office Visit Family Practice [facility] [place] [address] Charlene York CRNP [address] [place] [address] Health Maintenance Due Date Last Done Comments [...] this encounter Medical Devices Implanted Type Area Electrotype Molder Device Identifier Shelf Expiration Date Model / Serial / Lot Power Port 8fr Sngl Lumen Plas - [id number] Implanted:Qty : 1 on 07/08/2023 by Naun Ratliff MD at OR [facility] Right: Chest CR BARD : PERIPHERAL VASCULAR [id number] 10/23/2024 [id number] / / [id number] documented as of this encounter Care Teams Pit Boss Relationship Specialty Start Date End Date Charlene York CRNP [address] [place] [address] PCP - General Nurse Practitioner 03/11/23 documented as of this encounter
--- OUTSIDE RECORDS SUMMARY | 2023-08-15 09:55 | External Medical Summary | Summary of Care ---
Author Name Unknown Organization [facility] Address [address] [facility] [place] [address] Phone [phone] Care Team Providers Care Assembly Machine Operator Name Role Phone Charlene York Primary Care Provider Reason for Visit * Reason Onset Date Comments Information 07/23/2023 Encounter Details Date Type Department Care Team (Late st Contact Info) Description 07/23/2023 Telephone Hematology/Oncology Treatment, [place] [address] [place] [address] Faustino Sharif MD 200 [place] [address] Information Allergies No known active allergiesdocumented as of this encounter (statuses as of 07/28/2023) Medications Medication Sig Dispensed Refills Start Date [...] as of this encounter (statuses as of 07/28/2023) Active Problems Problem Noted Date Diagnosed Date [...] as of this encounter (statuses as of 07/28/2023) Resolved Problems Problem Noted Date Diagnosed Date Resolved Date Impacted cerumen 03/11/2023 Otitis media 03/11/2023 documented as of this encounter (statuses as of 07/28/2023) Immunizations Name Administration Dates Next Due SARS-COV-2 [...] Miscellaneous Notes * Telephone Encounter - Cristina Servin OSA - 07/28/2023 1:18 PM EDT Patient is calling to speak a nurse, she ended up in the hospital after her treatment and wants to discuss it. Call her back on her cell [phone] * Telephone Encounter - Pilar Viera RN - 07/23/2023 8:44 AM EDT Patient called office- was discharged from [facility] last evening. Would like to see Dr Sharif prior to next treatment, states that she wants to discuss how we can adjust treatment to prevent her from being admitted again (admitted overnight for nausea/ vomiting). Advised her that Tatiana can also address these concerns. Discussed options with patient - leaving appts 08/03/23 as scheduled- if decision is made at follow up to not proceed with treatment, then that is ok - move follow up with Tatiana to sooner (openings 07/29)- patient states that she can only accept appts on Mondays or Fridays as her daughter wants to come from out of state for any appts and can only come those days - cancel 08/02 appts and schedule appt with Dr Sharif (he does not have openings before 08/02), can reschedule treatment for after she sees him Patient states that she would like to leave 08/03/23 appts as scheduled. Discharge summary printed to be scanned into chart. documented in this encounter Plan of Treatment Upcoming Encounters Date Type Department Care Team (Late st Contact Info) Description 08/03/2023 7:00 AM EDT Laboratory Laboratory [place] [address] [address] [place] [phone] Aida, Lab Scenery 200 [facility] [place] [address] 08/03/2023 8:00 AM EDT Office Visit Hematology/Oncology [facility] [address] [place] [phone] Tatiana Grullon CRNP [facility] [place] [address] 08/03/2023 8:30 AM EDT Hem/Onc Treatment Hematology/Oncology Treatment, [place] [address] [facility] [address] [place] [phone] Aida, Chair 4 Hem Onc [facility] 200 [facility] [place] [address] 11/05/2023 7:40 AM EDT Office Visit Family Practice [facility] [address] [place] [address] Charlene York CRNP [address] [place] [address] Health Maintenance Due Date Last Done Comments [...] this encounter Medical Devices Implanted Type Area Can Worker Device Identifier Shelf Expiration Date Model / Serial / Lot Power Port 8fr Sngl Lumen Plas - [id number] Implanted:Qty : 1 on 07/08/2023 by Naun Ratliff MD at OR [facility] Right: Chest CR BARD : PERIPHERAL VASCULAR [id number] 10/23/2024 [id number] / / [id number] documented as of this encounter Care Teams Assembly Machine Operator Relationship Specialty Start Date End Date Charlene York CRNP [address] [place] [address] PCP - General Nurse Practitioner 03/11/23 documented as of this encounter
--- OUTSIDE RECORDS SUMMARY | 2023-08-15 09:55 | External Medical Summary | Summary of Care ---
Author Name Unknown Organization [facility] Address [address] [facility] [place] [address] Phone [phone] Care Team Providers Care Indian Nanny Name Role Phone Charlene York Primary Care Provider Reason for Visit * Reason Comments Chemotherapy TCHP D1C1 * Episode Based Medications (Routine) - Authorized Specialty Diagnoses / Procedures Referred By Contac t Referred To Contact Diagnoses Malignant neoplasm of upper-outer quadrant of right breast in female, estrogen receptor positive (HCC) Encounter for antineoplastic chemotherapy Procedures [place] CARBOPLATIN INJECTION MN FOSAPREPITANT INJECTION MN INJECTION, PERTUZUMAB, 1 MG MN INJ ONTRUZANT 10 MG MN INJECTION, UDENYCA 0.5 MG MN DOCETAXEL INJECTION Faustino Sharif MD 200 [place] [address] Anc Hem/Onc [address] [address] Referral ID Status Reason Start Date Expiration Date V isits Requested Visits Authorized [id number] Authorized 06/11/2023 02/22/2099 999 999 Encounter Details Date Type Department Care Team (Latest Contact Info) Description 07/13/2023 9:00 AM EDT Hem/Onc Treatment Hematology/Oncolog y Treatment, [address] [phone] Aida, Chair 1 Hem Onc [address] [place] [address] Malignant neoplasm of upper-outer quadrant of right [...] Description 08/03/2023 7:00 AM EDT Laboratory Laboratory [facility] [address] [place] [phone] Aida Lab [address] [facility] [place] [address] 08/03/2023 8:00 AM EDT Office Visit Hematology/Oncology [facility] 200 [facility] [place] [phone] Tatiana Grullon CRNP 400 [facility] [place] [address] 08/03/2023 8:30 AM EDT Hem/Onc Treatment Hematology/Oncology Treatment, [place] [address] [place] [phone] Aida, Chair 4 Hem Onc [address] [place] [address] 11/05/2023 7:40 AM EDT Office Visit Family Practice [facility] [address] [place] [address] Charlene York CRNP [address] [place] [address] [...] this encounter Medical Devices Implanted Type Area Route Delivery Clerk Device Identifier Shelf Expiration Date Model / Serial / Lot Power Port 8fr Sngl Lumen Plas - [id number] Implanted:Qty : 1 on 07/08/2023 by Naun Ratliff MD at OR [facility] Right: Chest CR BARD : PERIPHERAL VASCULAR [id number] 10/23/2024 [id number] / / [id number] documented as of this encounter Visit Diagnoses [...] mL/hr documented in this encounter Care Teams Indian Nanny Relationship Specialty Start Date End Date Charlene York CRNP [address] [place] [address] PCP - General Nurse Practitioner 03/11/23 documented as of this encounter
--- OUTSIDE RECORDS SUMMARY | 2023-08-15 09:55 | External Medical Summary | Summary of Care ---
Author Name Unknown Organization [facility] Address [address] [facility] [place] [address] Phone [phone] Care Team Providers Care Trench Digger Name Role Phone Charlene York Primary Care Provider Reason for Visit * Reason Comments Chemotherapy TCHP D1C1 * Episode Based Medications (Routine) - Authorized Specialty Diagnoses / Procedures Referred By Contac t Referred To Contact Diagnoses Malignant neoplasm of upper-outer quadrant of right breast in female, estrogen receptor positive (HCC) Encounter for antineoplastic chemotherapy Procedures MA CARBOPLATIN INJECTION MA FOSAPREPITANT INJECTION MA INJECTION, PERTUZUMAB, 1 MG MA INJ ONTRUZANT 10 MG MA INJECTION, UDENYCA 0.5 MG MA DOCETAXEL INJECTION Faustino Sharif MD 200 [place] [address] Anc Hem/Onc [address] [address] Referral ID Status Reason Start Date Expiration Date V isits Requested Visits Authorized [id number] Authorized 06/11/2023 02/22/2099 999 999 Encounter Details Date Type Department Care Team (Latest Contact Info) Description 07/13/2023 9:00 AM EDT Hem/Onc Treatment Hematology/Oncolog y Treatment, [address] [phone] Aida, Chair 1 Hem Onc [address] [place] [address] Malignant neoplasm of upper-outer quadrant of right [...] Description 08/03/2023 7:00 AM EDT Laboratory Laboratory [facility] [address] [place] [phone] Aida Lab [address] [facility] [place] [address] 08/03/2023 8:00 AM EDT Office Visit Hematology/Oncology [facility] [address] [facility] [place] [phone] Tatiana Grullon CRNP 400 [facility] [place] [address] 08/03/2023 8:30 AM EDT Hem/Onc Treatment Hematology/Oncology Treatment, [place] [address] [place] [phone] Aida, Chair 4 Hem Onc [address] [place] [address] 11/05/2023 7:40 AM EDT Office Visit Family Practice [facility] [address] [place] [address] Charlene York CRNP [address] [place] [address] [...] this encounter Medical Devices Implanted Type Area Investor Relations Director Device Identifier Shelf Expiration Date Model / Serial / Lot Power Port 8fr Sngl Lumen Plas - [id number] Implanted:Qty : 1 on 07/08/2023 by Naun Ratliff MD at OR [facility] Right: Chest CR BARD : PERIPHERAL VASCULAR [id number] 10/23/2024 [id number] / / [id number] documented as of this encounter Visit Diagnoses [...] mL/hr documented in this encounter Care Teams Trench Digger Relationship Specialty Start Date End Date Charlene York CRNP [address] [place] [address] PCP - General Nurse Practitioner 03/11/23 documented as of this encounter
--- OUTSIDE RECORDS SUMMARY | 2023-08-15 09:55 | External Medical Summary | Summary of Care ---
Author Name Unknown Organization [facility] Address [address] [facility] [place] [address] Phone [phone] Care Team Providers Care Tool And Die Designer Name Role Phone Charlene York Primary Care Provider Reason for Visit * Reason Comments Chemotherapy TCHP D1C1 * Episode Based Medications (Routine) - Authorized Specialty Diagnoses / Procedures Referred By Contac t Referred To Contact Diagnoses Malignant neoplasm of upper-outer quadrant of right breast in female, estrogen receptor positive (HCC) Encounter for antineoplastic chemotherapy Procedures RI CARBOPLATIN INJECTION RI FOSAPREPITANT INJECTION RI INJECTION, PERTUZUMAB, 1 MG RI INJ ONTRUZANT 10 MG RI INJECTION, UDENYCA 0.5 MG RI DOCETAXEL INJECTION Faustino Sharif MD 200 [place] [address] Anc Hem/Onc [address] [address] Referral ID Status Reason Start Date Expiration Date V isits Requested Visits Authorized [id number] Authorized 06/11/2023 02/22/2099 999 999 Encounter Details Date Type Department Care Team (Latest Contact Info) Description 07/13/2023 9:00 AM EDT Hem/Onc Treatment Hematology/Oncolog y Treatment, [address] [phone] Aida, Chair 1 Hem Onc [address] [place] [address] Malignant neoplasm of upper-outer quadrant of right [...] Description 08/03/2023 7:00 AM EDT Laboratory Laboratory [facility] [address] [place] [phone] Aida Lab [address] [facility] [place] [address] 08/03/2023 8:00 AM EDT Office Visit Hematology/Oncology [facility] 200 [facility] [place] [phone] Tatiana Grullon CRNP 400 [facility] [place] [address] 08/03/2023 8:30 AM EDT Hem/Onc Treatment Hematology/Oncology Treatment, [place] [address] [place] [phone] Aida, Chair 4 Hem Onc [address] [place] [address] 11/05/2023 7:40 AM EDT Office Visit Family Practice [facility] [address] [place] [address] Charlene York CRNP [address] [place] [address] [...] this encounter Medical Devices Implanted Type Area Form Builder Device Identifier Shelf Expiration Date Model / Serial / Lot Power Port 8fr Sngl Lumen Plas - [id number] Implanted:Qty : 1 on 07/08/2023 by Naun Ratliff MD at OR [facility] Right: Chest CR BARD : PERIPHERAL VASCULAR [id number] 10/23/2024 [id number] / / [id number] documented as of this encounter Visit Diagnoses [...] mL/hr documented in this encounter Care Teams Tool And Die Designer Relationship Specialty Start Date End Date Charlene York CRNP [address] [place] [address] PCP - General Nurse Practitioner 03/11/23 documented as of this encounter
--- OUTSIDE RECORDS SUMMARY | 2023-08-15 09:55 | External Medical Summary | Summary of Care ---
Author Name Unknown Organization [facility] Address [address] [facility] [place] [address] Phone [phone] Care Team Providers Care Sod Farmer Name Role Phone Charlene York Primary Care Provider Reason for Visit * Reason Comments Chemotherapy TCHP D1C1 * Episode Based Medications (Routine) - Authorized Specialty Diagnoses / Procedures Referred By Contac t Referred To Contact Diagnoses Malignant neoplasm of upper-outer quadrant of right breast in female, estrogen receptor positive (HCC) Encounter for antineoplastic chemotherapy Procedures OR CARBOPLATIN INJECTION OR FOSAPREPITANT INJECTION OR INJECTION, PERTUZUMAB, 1 MG OR INJ ONTRUZANT 10 MG OR INJECTION, UDENYCA 0.5 MG OR DOCETAXEL INJECTION Faustino Sharif MD 200 [place] [address] Anc Hem/Onc [address] [address] Referral ID Status Reason Start Date Expiration Date V isits Requested Visits Authorized [id number] Authorized 06/11/2023 02/22/2099 999 999 Encounter Details Date Type Department Care Team (Latest Contact Info) Description 07/13/2023 9:00 AM EDT Hem/Onc Treatment Hematology/Oncolog y Treatment, [address] [phone] Aida, Chair 1 Hem Onc [address] [place] [address] Malignant neoplasm of upper-outer quadrant of right [...] Description 08/03/2023 7:00 AM EDT Laboratory Laboratory [facility] [address] [place] [phone] Aida, Lab [facility] [address] [place] [address] 08/03/2023 8:00 AM EDT Office Visit Hematology/Oncology [facility] [address] [place] [phone] Tatiana Grullon CRNP 400 [place] [address] 08/03/2023 8:30 AM EDT Hem/Onc Treatment Hematology/Oncology Treatment, [place] [address] [place] [phone] Aida, Chair 4 Hem Onc [facility] 200 [facility] [place] [address] 11/05/2023 7:40 AM EDT Office Visit Family Practice [facility] [address] Charlene York CRNP [facility] [address] Health Maintenance Due Date Last Done [...] this encounter Medical Devices Implanted Type Area Body Maker Device Identifier Shelf Expiration Date Model / Serial / Lot Power Port 8fr Sngl Lumen Plas - [id number] Implanted:Qty : 1 on 07/08/2023 by Naun Ratliff MD at OR [facility] Right: Chest CR BARD : PERIPHERAL VASCULAR [id number] 10/23/2024 [id number] / / [id number] documented as of this encounter Visit Diagnoses [...] calculating AUC dose), ONCE, 1 dose, On 07/13/23 at 1400 Start Infusion 07/13/2023 12:46 PM [...] mL/hr documented in this encounter Care Teams Sod Farmer Relationship Specialty Start Date End Date Charlene York CRNP [address] [place] [address] PCP - General Nurse Practitioner 03/11/23 documented as of this encounter
--- OUTSIDE RECORDS SUMMARY | 2023-08-15 09:55 | External Medical Summary | Summary of Care ---
Author Name Unknown Organization [facility] Address [address] [facility] [place] [address] Phone [phone] Care Team Providers Care Underground Mining Section Foreman Name Role Phone Charlene York Primary Care [...] MA DOCETAXEL INJECTION Faustino Sharif MD 200 [place] [address] Anc Hem/Onc [address] [address] Referral ID Status Reason Start Date Expiration Date V isits Requested Visits Authorized [id number] Authorized 06/11/2023 02/22/2099 999 999 Encounter Details Date Type Department Care Team (Latest Contact Info) Description 07/13/2023 9:00 AM EDT Hem/Onc Treatment Hematology/Oncolog y Treatment, [address] [address] Aida, Chair 1 Hem Onc [address] [place] [address] Malignant neoplasm of upper-outer quadrant of right [...] Description 08/03/2023 7:00 AM EDT Laboratory Laboratory [facility] [address] [place] [phone] Aida Lab [address] [facility] [place] [address] 08/03/2023 8:00 AM EDT Office Visit Hematology/Oncology [facility] 200 [facility] [place] [phone] Tatiana Grullon CRNP 400 [facility] [place] [address] 08/03/2023 8:30 AM EDT Hem/Onc Treatment Hematology/Oncology Treatment, [place] [address] [place] [phone] Aida, Chair 4 Hem Onc [address] [place] [address] 11/05/2023 7:40 AM EDT Office Visit Family Practice [facility] 132 [place] [address] Charlene York CRNP 132 [place] [address] [...] this encounter Medical Devices Implanted Type Area Wastewater Technician Device Identifier Shelf Expiration Date Model / Serial / Lot Power Port 8fr Sngl Lumen Plas - [id number] Implanted:Qty : 1 on 07/08/2023 by Naun Ratliff MD at OR [facility] Right: Chest CR BARD : PERIPHERAL VASCULAR [id number] 10/23/2024 [id number] / / [id number] documented as of this encounter Visit Diagnoses [...] mL/hr documented in this encounter Care Teams Underground Mining Section Foreman Relationship Specialty Start Date End Date Charlene York CRNP [address] [place] [address] PCP - General Nurse Practitioner 03/11/23 documented as of this encounter
--- OUTSIDE RECORDS SUMMARY | 2023-08-15 09:55 | External Medical Summary | Summary of Care ---
Author Name Unknown Organization [facility] Address [address] [facility] [place] [address] Phone [phone] Care Team Providers Care Drill Hand Name Role Phone Charlene York Primary Care Provider Reason for Visit * Reason Onset Date Comments Information 07/23/2023 Encounter Details Date Type Department Care Team (Late st Contact Info) Description 07/23/2023 Telephone Hematology/Oncology Treatment, [place] [address] [place] [address] Faustino Sharif MD 200 [place] [address] Information Allergies No known active allergiesdocumented as [...] it. Call her back on her cell [phone] * Telephone Encounter - Pilar Viera RN - 07/23/2023 8:44 AM EDT Patient called office- was discharged from [facility] last evening. Would like to see Dr [...] Description 08/03/2023 7:00 AM EDT Laboratory Laboratory [place] [address] [place] [phone] Aida, Lab Scenery 200 [facility] [place] [address] 08/03/2023 8:00 AM EDT Office Visit Hematology/Oncology [facility] [address] [place] [phone] Tatiana Grullon CRNP 400 [facility] [place] [address] 08/03/2023 8:30 AM EDT Hem/Onc Treatment Hematology/Oncology Treatment, [place] [address] [facility] [address] [place] [phone] Aida, Chair 4 Hem Onc [facility] 200 [facility] [place] [address] 11/05/2023 7:40 AM EDT Office Visit Family Practice [facility] [address] [place] [address] Charlene York CRNP [address] [place] [address] Health Maintenance Due Date Last Done Comments [...] this encounter Medical Devices Implanted Type Area Rn Clinical Trials Device Identifier Shelf Expiration Date Model / Serial / Lot Power Port 8fr Sngl Lumen Plas - [id number] Implanted:Qty : 1 on 07/08/2023 by Naun Ratliff MD at OR [facility] Right: Chest CR BARD : PERIPHERAL VASCULAR [id number] 10/23/2024 [id number] / / [id number] documented as of this encounter Care Teams Drill Hand Relationship Specialty Start Date End Date Charlene York CRNP [address] [place] [address] PCP - General Nurse Practitioner 03/11/23 documented as of this encounter
--- OUTSIDE RECORDS SUMMARY | 2023-08-15 09:55 | External Medical Summary | Summary of Care ---
Author Name Unknown Organization [facility] Address [address] [facility] [place] [address] Phone [phone] Care Team Providers Care Weigh And Charge Worker Name Role Phone Charlene York Primary Care Provider Reason for Visit * Reason Comments Chemotherapy TCHP D1C1 * Episode Based Medications (Routine) - Authorized Specialty Diagnoses / Procedures Referred By Contac t Referred To Contact Diagnoses Malignant neoplasm of upper-outer quadrant of right breast in female, estrogen receptor positive (HCC) Encounter for antineoplastic chemotherapy Procedures MT CARBOPLATIN INJECTION MT FOSAPREPITANT INJECTION MT INJECTION, PERTUZUMAB, 1 MG MT INJ ONTRUZANT 10 MG MT INJECTION, UDENYCA 0.5 MG MT DOCETAXEL INJECTION Fuastino Sharif MD 200 [place] [id number] Anc Hem/Onc [address] [address] Referral ID Status Reason Start Date Expiration Date V isits Requested Visits Authorized [id number] Authorized 06/11/2023 02/22/2099 999 999 Encounter Details Date Type Department Care Team (Latest Contact Info) Description 07/13/2023 9:00 AM EDT Hem/Onc Treatment Hematology/Oncolog y Treatment, [address] [address] Aida, Chair 1 Hem Onc [address] [place] [address] Malignant neoplasm of upper-outer quadrant of right [...] Description 08/03/2023 7:00 AM EDT Laboratory Laboratory [facility] [address] [place] [phone] Aida Lab [address] [facility] [place] [address] 08/03/2023 8:00 AM EDT Office Visit Hematology/Oncology [facility] 200 [facility] [place] [phone] Tatiana Grullon CRNP 400 [facility] [place] [address] 08/03/2023 8:30 AM EDT Hem/Onc Treatment Hematology/Oncology Treatment, [place] [address] [place] [phone] Aida, Chair 4 Hem Onc [address] [place] [address] 11/05/2023 7:40 AM EDT Office Visit Family Practice [facility] 132 [place] [address] Charlene York CRNP 132 [place] [address] [...] this encounter Medical Devices Implanted Type Area Utility Sales Representative Device Identifier Shelf Expiration Date Model / Serial / Lot Power Port 8fr Sngl Lumen Plas - [id number] Implanted:Qty : 1 on 07/08/2023 by Naun Ratliff MD at OR [facility] Right: Chest CR BARD : PERIPHERAL VASCULAR [id number] 10/23/2024 [id number] / / [id number] documented as of this encounter Visit Diagnoses [...] mL/hr documented in this encounter Care Teams Weigh And Charge Worker Relationship Specialty Start Date End Date Charlene York CRNP [address] [place] [address] PCP - General Nurse Practitioner 03/11/23 documented as of this encounter
--- OUTSIDE RECORDS SUMMARY | 2023-08-15 09:55 | External Medical Summary | Summary of Care ---
Author Name Unknown Organization [facility] Address [address] [facility] [place] [address] Phone [phone] Care Team Providers Care Shipyard Painter Helper Name Role Phone Charlene York Primary Care Provider Reason for Visit * Reason Comments Chemotherapy TCHP D1C1 * Episode Based Medications (Routine) - Authorized Specialty Diagnoses / Procedures Referred By Contac t Referred To Contact Diagnoses Malignant neoplasm of upper-outer quadrant of right breast in female, estrogen receptor positive (HCC) Encounter for antineoplastic chemotherapy Procedures CT CARBOPLATIN INJECTION CT FOSAPREPITANT INJECTION CT INJECTION, PERTUZUMAB, [address] INJ ONTRUZANT [address] INJECTION, UDENYCA 0.[address] DOCETAXEL INJECTION Faustino Sharif MD 200 [facility] [place] [address] Anc Hem/Onc [address] [address] Referral ID Status Reason Start Date Expiration Date V isits Requested Visits Authorized [id number] Authorized 06/11/2023 02/22/2099 999 999 Encounter Details Date Type Department Care Team (Latest Contact Info) Description 07/13/2023 9:00 AM EDT Hem/Onc Treatment Hematology/Oncolog y Treatment, [address] [address] Aida, Chair 1 Hem Onc [address] [place] [address] Malignant neoplasm of upper-outer quadrant of right [...] Description 08/03/2023 7:00 AM EDT Laboratory Laboratory [facility] [address] [place] [phone] Aida Lab [address] [facility] [place] [address] 08/03/2023 8:00 AM EDT Office Visit Hematology/Oncology [facility] 200 [facility] [place] [phone] Tatiana Grullon CRNP 400 [facility] [place] [address] 08/03/2023 8:30 AM EDT Hem/Onc Treatment Hematology/Oncology Treatment, [place] [address] [place] [phone] Aida, Chair 4 Hem Onc [address] [place] [address] 11/05/2023 7:40 AM EDT Office Visit Family Practice [facility] 132 [place] [address] Charlene York CRNP 132 [place] [address] [...] this encounter Medical Devices Implanted Type Area Welder Fitter Gas Device Identifier Shelf Expiration Date Model / Serial / Lot Power Port 8fr Sngl Lumen Plas - [id number] Implanted:Qty : 1 on 07/08/2023 by Naun Ratliff MD at OR [facility] Right: Chest CR BARD : PERIPHERAL VASCULAR [id number] 10/23/2024 [id number] / / [id number] documented as of this encounter Visit Diagnoses [...] mL/hr documented in this encounter Care Teams Shipyard Painter Helper Relationship Specialty Start Date End Date Charlene York CRNP [address] [place] [address] PCP - General Nurse Practitioner 03/11/23 documented as of this encounter
--- OUTSIDE RECORDS SUMMARY | 2023-08-15 09:55 | External Medical Summary | Summary of Care ---
Author Name Unknown Organization [facility] Address [address] [facility] [place] [address] Phone [phone] Care Team Providers Care Warp Spinner Name Role Phone Charlene York Primary Care Provider Reason for Visit * Reason Comments Chemotherapy TCHP D1C1 * Episode Based Medications (Routine) - Authorized Specialty Diagnoses / Procedures Referred By Contac t Referred To Contact Diagnoses Malignant neoplasm of upper-outer quadrant of right breast in female, estrogen receptor positive (HCC) Encounter for antineoplastic chemotherapy Procedures IA CARBOPLATIN INJECTION IA FOSAPREPITANT INJECTION IA INJECTION, PERTUZUMAB, 1 MG IA INJ ONTRUZANT 10 MG IA INJECTION, UDENYCA 0.5 MG IA DOCETAXEL INJECTION Faustino Sharif MD 200 [place] [address] Anc Hem/Onc [address] [address] Referral ID Status Reason Start Date Expiration Date V isits Requested Visits Authorized [id number] Authorized 06/11/2023 02/22/2099 999 999 Encounter Details Date Type Department Care Team (Latest Contact Info) Description 07/13/2023 9:00 AM EDT Hem/Onc Treatment Hematology/Oncolog y Treatment, [address] [address] Aida, Chair 1 Hem Onc [address] [place] [address] Malignant neoplasm of upper-outer quadrant of right [...] Description 08/03/2023 7:00 AM EDT Laboratory Laboratory [facility] [address] [place] [phone] Aida Lab [address] [facility] [place] [address] 08/03/2023 8:00 AM EDT Office Visit Hematology/Oncology [facility] 200 [facility] [place] [phone] Tatiana Grullon CRNP 400 [facility] [place] [address] 08/03/2023 8:30 AM EDT Hem/Onc Treatment Hematology/Oncology Treatment, [place] [address] [place] [phone] Aida, Chair 4 Hem Onc [address] [place] [address] 11/05/2023 7:40 AM EDT Office Visit Family Practice [facility] 132 [place] [address] Charlene York CRNP 132 [place] [address] [...] this encounter Medical Devices Implanted Type Area Meat Grading Machine Operator Device Identifier Shelf Expiration Date Model / Serial / Lot Power Port 8fr Sngl Lumen Plas - [id number] Implanted:Qty : 1 on 07/08/2023 by Naun Ratliff MD at OR [facility] Right: Chest CR BARD : PERIPHERAL VASCULAR [id number] 10/23/2024 [id number] / / [id number] documented as of this encounter Visit Diagnoses [...] mL/hr documented in this encounter Care Teams Warp Spinner Relationship Specialty Start Date End Date Charlene York CRNP [address] [place] [address] PCP - General Nurse Practitioner 03/11/23 documented as of this encounter
--- OUTSIDE RECORDS SUMMARY | 2023-08-15 09:55 | External Medical Summary | Summary of Care ---
Author Name Unknown Organization [facility] Address [address] [facility] [place] [address] Phone [phone] Care Team Providers Care Form Maker Name Role Phone Charlene York Primary Care Provider Reason for Visit * Reason Onset Date Comments Information 07/23/2023 Encounter Details Date Type Department Care Team (Late st Contact Info) Description 07/23/2023 Telephone Hematology/Oncology Treatment, [place] [address] [place] [address] Faustino Sharif MD 200 [place] [address] Information Allergies No known active allergiesdocumented as [...] Telephone Encounter - Pilar Viera RN - 07/30/2023 7:[address] Sharif/ Tatiana: FYI- patient admitted after last cycle of chemotherapy, scheduled 08/03/23 to [facility] and receive cycle 2 TCHP. She does not want to proceed unless adjustments are made to treatment plan. Had offered to move follow up to today with Tatiana so that Dr Sharif would be here as well, but shecan only accept Thursday or Thursday appts due to wanting her daughter to be present at all appts. * Telephone Encounter - Pilar Viera RN - 07/28/2023 1:28 PM EDT Called patient. Reviewed appts 08/03/23- if the decision is made to proceed with treatment that day with adjustments after office visit, then treatment appt was left on, but if decision is made to delay treatment then we will delay. She will not get any further treatment prior to seeing a provider. Patient verbalized understanding and reiterated that she does not want to proceed with treatment as it has been. Will postpone this for Dr Sharif to review when he returns to the office later this week as well. * Telephone Encounter - Cristina Servin OSA - 07/28/2023 1:18 PM EDT Patient is calling to speak a nurse, she ended up in the hospital after her treatment and wants to discuss it. Call her back on her cell [phone] * Telephone Encounter - Pilar Viera RN - 07/23/2023 8:44 AM EDT Patient called office- was discharged from [facility] last evening. Would like to see Dr [...] Description 08/03/2023 7:00 AM EDT Laboratory Laboratory [facility] [place] [address] [place] [phone] Garth Parra [facility] [place] [address] 08/03/2023 8:00 AM EDT Office Visit Hematology/Oncology Yasmin Aida [place] [phone] Tatiana Grullon CRNP [address] [place] [id number] 08/03/2023 8:30 AM EDT Hem/Onc Treatment Hematology/Oncology Treatment, [place] [address] [place] [address] [place], Chair 4 Hem Onc [place] [address] [place] [address] 11/05/2023 7:40 AM EDT Office Visit Family [facility] [address] [place] [address] Charlene York CRNP [address] [place] [address] Health Maintenance Due Date Last Done Comments [...] this encounter Medical Devices Implanted Type Area Zinc Miner Device Identifier Shelf Expiration Date Model / Serial / Lot Power Port 8fr Sngl Lumen Plas - [id number] Implanted:Qty : 1 on 07/08/2023 by Naun Ratliff MD at OR [facility] Right: Chest CR BARD : PERIPHERAL VASCULAR [id number] 10/23/2024 [id number] / / [id number] documented as of this encounter Care Teams Form Maker Relationship Specialty Start Date End Date Charlene York CRNP [address] [place] [address] PCP - General Nurse Practitioner 03/11/23 documented as of this encounter
--- OUTSIDE RECORDS SUMMARY | 2023-08-15 09:55 | External Medical Summary | Summary of Care ---
Author Name Unknown Organization [facility] Address 100 [facility] [address] Phone [phone] Care Team Providers Care Aircraft Pneudraulic Systems Mechanic Name Role Phone Charlene York Primary Care Provider Encounter Details Date Type Department Care Team (Late st Contact Info) Description 07/29/2023 Orders Only Hematology/Oncology, [facility] [address] 400 [facility] [place] [address] Mayelin Miles MD 200 [place] [address] Allergies No known active allergiesdocumented as of [...] Description 08/03/2023 7:00 AM EDT Laboratory Laboratory [address] [place] [phone] Aida Lab [address] [facility] [place] [address] 08/03/2023 8:00 AM EDT Office Visit Hematology/Oncology [facility] [place] 200 [facility] [place] [phone] Tatiana Grullon CRNP [address] [place], [place] [address] [address] 08/03/2023 8:30 AM EDT Hem/Onc Treatment Hematology/Oncology Treatment, [place] 200 [facility] [phone] Aida, Chair 4 Hem Onc [address] [place] [address] 11/05/2023 7:40 AM EDT Office Visit Family Practice [facility] [address] [place] [address] Charlene York CRNP 132 [place] [address] Health Maintenance Due Date Last Done Comments [...] this encounter Medical Devices Implanted Type Area Electrophysiology Tech Device Identifier Shelf Expiration Date Model / Serial / Lot Power Port 8fr Sngl Lumen Plas - [id number] Implanted:Qty : 1 on 07/08/2023 by Naun Ratliff MD at OR [facility] Right: Chest CR BARD : PERIPHERAL VASCULAR [id number] 10/23/2024 [id number] / / [id number] documented as of this encounter Care Teams Aircraft Pneudraulic Systems Mechanic Relationship Specialty Start Date End Date Charlene York CRNP [address] [place] [address] PCP - General Nurse Practitioner 03/11/23 documented as of this encounter
--- OUTSIDE RECORDS SUMMARY | 2023-08-15 09:55 | External Medical Summary | Summary of Care ---
Author Name Unknown Organization [facility] Address [address] [facility] [place] [address] Phone [phone] Care Team Providers Care Medical Instructor Name Role Phone Charlene York Primary Care Provider Reason for Visit * Reason Onset Date Comments Information 07/23/2023 Encounter Details Date Type Department Care Team (Late st Contact Info) Description 07/23/2023 Telephone Hematology/Oncology Treatment, [place] [address] [place] [address] Faustino Sharif MD 200 [place] [address] Information Allergies No known active allergiesdocumented as [...] it. Call her back on her cell [phone] * Telephone Encounter - Pilar Viera RN - 07/23/2023 8:44 AM EDT Patient called office- was discharged from [facility] last evening. Would like to see Dr [...] Description 08/03/2023 7:00 AM EDT Laboratory Laboratory [address] [place] [phone] Aida Lab [address] [place] [address] 08/03/2023 8:00 AM EDT Office Visit Hematology/Oncology [address] [place] [phone] Tatiana Grullon CRNP 400 [facility] [id number] 08/03/2023 8:30 AM EDT Hem/Onc Treatment Hematology/Oncology Treatment, [place] 200 [facility] [address] Aida, Chair 4 Hem Onc [address] [place] [address] 11/05/2023 7:40 AM EDT Office Visit Family [facility] [address] [place] [address] Charlene York CRNP [address] [place] [address] Health Maintenance Due Date Last Done Comments [...] this encounter Medical Devices Implanted Type Area Fitness Club Manager Device Identifier Shelf Expiration Date Model / Serial / Lot Power Port 8fr Sngl Lumen Plas - [id number] Implanted:Qty : 1 on 07/08/2023 by Naun Ratliff MD at [facility] Right: Chest CR BARD : PERIPHERAL VASCULAR [id number] 10/23/2024 [id number] / / [id number] documented as of this encounter Care Teams Medical Instructor Relationship Specialty Start Date End Date Charlene York CRNP [address] [place] [address] PCP - General Nurse Practitioner 03/11/23 documented as of this encounter
--- OUTSIDE RECORDS SUMMARY | 2023-08-15 09:55 | External Medical Summary | Summary of Care ---
Author Name Unknown Organization [facility] Address [address] [facility] [place] [address] Phone [phone] Care Team Providers Care Enforcement Officer Name Role Phone Charlene York Primary Care Provider Reason for Visit * Reason Comments Chemotherapy TCHP D1C1 * Episode Based Medications (Routine) - Authorized Specialty Diagnoses / Procedures Referred By Contac t Referred To Contact Diagnoses Malignant neoplasm of upper-outer quadrant of right breast in female, estrogen receptor positive (HCC) Encounter for antineoplastic chemotherapy Procedures [place] CARBOPLATIN INJECTION VA FOSAPREPITANT INJECTION VA INJECTION, PERTUZUMAB, 1 MG [place] INJ ONTRUZANT 10 MG [place] INJECTION, UDENYCA 0.5 MG [place] DOCETAXEL INJECTION Faustino Sharif MD 200 [place] [address] Anc Hem/Onc [address] [address] Referral ID Status Reason Start Date Expiration Date V isits Requested Visits Authorized [id number] Authorized 06/11/2023 02/22/2099 999 999 Encounter Details Date Type Department Care Team (Latest Contact Info) Description 07/13/2023 9:00 AM EDT Hem/Onc Treatment Hematology/Oncolog y Treatment, [address] [address] Aida, Chair 1 Hem Onc [address] [place] [address] Malignant neoplasm of upper-outer quadrant of right [...] Description 08/03/2023 7:00 AM EDT Laboratory Laboratory [facility] [address] [place] [phone] Aida Lab [address] [facility] [place] [address] 08/03/2023 8:00 AM EDT Office Visit Hematology/Oncology [facility] 200 [facility] [place] [phone] Tatiana Grullon CRNP 400 [facility] [place] [address] 08/03/2023 8:30 AM EDT Hem/Onc Treatment Hematology/Oncology Treatment, [place] [address] [place] [phone] Aida, Chair 4 Hem Onc [address] [place] [address] 11/05/2023 7:40 AM EDT Office Visit Family Practice [facility] [address] [place] [address] Charlene York CRNP [address] [place] [address] [...] this encounter Medical Devices Implanted Type Area Corrections Officer Device Identifier Shelf Expiration Date Model / Serial / Lot Power Port 8fr Sngl Lumen Plas - [id number] Implanted:Qty : 1 on 07/08/2023 by Naun Ratliff MD at OR [facility] Right: Chest CR BARD : PERIPHERAL VASCULAR [id number] 10/23/2024 [id number] / / [id number] documented as of this encounter Visit Diagnoses [...] mL/hr documented in this encounter Care Teams Enforcement Officer Relationship Specialty Start Date End Date Charlene York CRNP [address] [place] [address] PCP - General Nurse Practitioner 03/11/23 documented as of this encounter
--- OUTSIDE RECORDS SUMMARY | 2023-08-15 09:56 | External Medical Summary | Summary of Care ---
Author Name Unknown Organization [facility] Address [address] [place] [address] Phone [phone] Care Team Providers Care Cable Ferryboat Operator Name Role Phone Charlene York Primary Care Provider Reason for Visit * Reason Onset Date Comments Information 07/23/2023 Encounter Details Date Type Department Care Team (Late st Contact Info) Description 07/23/2023 Telephone Hematology/Oncology Treatment, [place] [address] [place] [address] Faustino Sharif MD [address] [place] [address] Information Allergies No known active allergiesdocumented as of this encounter (statuses as of 07/23/2023) Medications Medication Sig Dispensed Refills Start Date [...] as of this encounter (statuses as of 07/23/2023) Active Problems Problem Noted Date Diagnosed Date [...] as of this encounter (statuses as of 07/23/2023) Resolved Problems Problem Noted Date Diagnosed Date Resolved Date Impacted cerumen 03/11/2023 Otitis media 03/11/2023 documented as of this encounter (statuses as of 07/23/2023) Immunizations Name Administration Dates Next Due SARS-COV-2 [...] EDT Patient called office- was discharged from [facility] last evening. Would like to see Dr [...] Care Team (Late st Contact Info) Description 07/28/2023 8:20 AM EDT Office Visit [facility] [address] [address] Charlene York CRNP [address] [address] 08/03/2023 7:00 AM EDT Laboratory Laboratory [place] [facility] [address] [phone] [facility] Yasmin [address] [place] [address] [address] 08/03/2023 8:00 AM EDT Office Visit Hematology/Oncology [place] [facility] [place] [address] [place] [phone] Tatiana Grullon CRNP [address] [place] [address] 08/03/2023 8:30 AM EDT Hem/Onc Treatment [facility]ematology[facility] [place] [facility] [address] Park, Chair 4 Hem Onc Scenery [address] [facility] [place] [address] Health Maintenance Due Date Last Done Comments [...] this encounter Medical Devices Implanted Type Area Hand Rug Braider Device Identifier Shelf Expiration Date Model / Serial / Lot Power Port 8fr Sngl Lumen Plas - [id number] Implanted:Qty : 1 on 07/08/2023 by Naun Ratliff MD at OR [facility] Right: Chest CR BARD : PERIPHERAL VASCULAR [id number] 10/23/2024 [id number] / / [id number] documented as of this encounter Care Teams Cable Ferryboat Operator Relationship Specialty Start Date End Date Charlene York CRNP [address] [place] [address] PCP - General Nurse Practitioner 03/11/23 documented as of this encounter
--- OUTSIDE RECORDS SUMMARY | 2023-08-15 09:56 | External Medical Summary | Summary of Care ---
Author Name Unknown Organization [facility] Address [address] [place] [address] Phone [phone] Care Team Providers Care Electric Meter Tester Name Role Phone Charlene York Primary Care Provider Reason for Visit * Reason Onset Date Comments Information 07/09/2023 Decadron reminde r Encounter Details Date Type Department Care Team (Late st Contact Info) Description 07/09/2023 Telephone Hematology/Oncology Treatment, [place] [address] [place] [address] Faustino Sharif MD [address] [place] [address] Information (Decadron reminder) Allergies No known active [...] did not have biopsy 07/03/23- reviewed with leoisa Zuniga to proceed with chemotherapy as scheduled. documented in this encounter Plan of Treatment Upcoming Encounters Date Type Department Care Team (Late st Contact Info) Description 07/28/2023 8:20 AM EDT Office Visit [facility] [address] [address] Charlene York CRNP [address] [address] 08/03/2023 7:00 AM EDT Laboratory Laboratory [facility] [address] [address] A[facility] Lab [address] [facility] [place] [address] 08/03/2023 8:00 AM EDT Office Visit Hematology/Oncology [facility] [place] [address] [place] [phone] Tatiana Grullon CRNP [address] [place] [address] 08/03/2023 8:30 AM EDT Hem/Onc Treatment Hematology/Oncology Treatment, [place] [address] [place] [address] Aida, Chair 4 Hem Onc Scenery [address] [place] [address] Health Maintenance Due Date Last Done Comments [...] this encounter Medical Devices Implanted Type Area Bakeshop Cleaner Device Identifier Shelf Expiration Date Model / Serial / Lot Power Port 8fr Sngl Lumen Plas - [id number] Implanted:Qty : 1 on 07/08/2023 by Naun Ratliff MD at OR [facility] Right: Chest CR BARD : PERIPHERAL VASCULAR [id number] 10/23/2024 [id number] / / [id number] documented as of this encounter Care Teams Electric Meter Tester Relationship Specialty Start Date End Date Charlene York CRNP [address] [address] PCP - General Nurse Practitioner 03/11/23 documented as of this encounter
--- OUTSIDE RECORDS SUMMARY | 2023-08-15 09:56 | External Medical Summary | Summary of Care ---
Author Name Unknown Organization [facility] Address [address] [place] [address] Phone [phone] Care Team Providers Care Retail Commission Sales Associate Name Role Phone Charlene York Primary Care Provider Reason for Visit * Reason Onset Date Comments Information 07/17/2023 Encounter Details Date Type Department Care Team (Late st Contact Info) Description 07/17/2023 Telephone Hematology/Oncology Treatment, [place] [address] [place] [address] Bimal Sharif MD [address] [place] [address] Information Allergies No known active allergiesdocumented as of this encounter (statuses as of 07/21/2023) Medications Medication Sig Dispensed Refills Start Date [...] as of this encounter (statuses as of 07/21/2023) Active Problems Problem Noted Date Diagnosed Date [...] as of this encounter (statuses as of 07/21/2023) Resolved Problems Problem Noted Date Diagnosed Date Resolved Date Impacted cerumen 03/11/2023 Otitis media 03/11/2023 documented as of this encounter (statuses as of 07/21/2023) Immunizations Name Administration Dates Next Due SARS-COV-2 [...] Telephone Encounter - Pilar Viera RN - 07/21/2023 8:42 AM EDT Called patient to check on her, left message for her to return call. * Telephone Encounter - Magaly Medina OSA - 07/17/2023 10:39 AM EDT Added for today at 145 per note * Addendum Note - Bimal Sharif MD [...] Description 08/03/2023 7:00 AM EDT Laboratory Laboratory [facility] [place] [address] [facility] [place] [phone] Aida, Lab [address] [place] [address] 08/03/2023 8:00 AM EDT Office Visit Hematology/Oncology [facility] [place] [address] [facility] [place] [phone] Tatiana Grullon CRNP [address] [place], [place] [address] [address] 08/03/2023 8:30 AM EDT Hem/Onc Treatment Hematology/Oncology Treatment, [place] [address] [facility] [place] [phone] Aida, Chair [address] [facility] [address] [facility] [place] [address] Health Maintenance Due Date Last Done Comments [...] this encounter Medical Devices Implanted Type Area Tower Technician Device Identifier Shelf Expiration Date Model / Serial / Lot Power Port 8fr Sngl Lumen Plas - [id number] Implanted:Qty : 1 on 07/08/2023 by Naun Ratliff MD at OR [facility] Right: Chest CR BARD : PERIPHERAL VASCULAR [id number] 10/23/2024 [id number] / / [id number] documented as of this encounter Visit Diagnoses Diagnosis Malignant neoplasm of upper-outer quadrant of right breast in female, estrogen receptor positive (HCC)- Primary Chemotherapy induced nausea and vomiting Nausea with vomiting Dehydration documented in this encounter Care Teams Retail Commission Sales Associate Relationship Specialty Start Date End Date Charlene York CRNP [address] [place] [address] PCP - General Nurse Practitioner 03/11/23 documented as of this encounter
--- OUTSIDE RECORDS SUMMARY | 2023-08-15 09:56 | External Medical Summary | Summary of Care ---
Author Name Unknown Organization [facility] Address [address] [place] [address] Phone [phone] Care Team Providers Care Hospice Clinical Marketer Name Role Phone Charlene York Primary Care Provider Reason for Visit * Reason Onset Date Comments Information 07/17/2023 Encounter Details Date Type Department Care Team (Late st Contact Info) Description 07/17/2023 Telephone Hematology/Oncology Treatment, [place] [address] [place] [address] Bimal Sharif MD [address] [place] [address] Information Allergies No known active allergiesdocumented as [...] left message for her to return call. Reviewed meditech- patient went to ER overnight, getting admitted. * Telephone Encounter - Magaly Medina OSA [...] Description 08/03/2023 7:00 AM EDT Laboratory Laboratory [facility] [place] 200 [facility] [place] [phone] Aida Lab [address] [place] [address] 08/03/2023 8:00 AM EDT Office Visit Hematology/Oncology [facility] [place] 200 [facility] [place] [phone] Tatiana Grullon CRNP [address] [facility] [address] 08/03/2023 8:30 AM EDT Hem/Onc Treatment Hematology/Oncology Treatment, [place] [address] [place] [phone] Aida, Chair 4 Hem Onc [facility] 200 [facility] [place] [address] Health Maintenance Due Date Last Done Comments [...] this encounter Medical Devices Implanted Type Area Scenario Writer Device Identifier Shelf Expiration Date Model / Serial / Lot Power Port 8fr Sngl Lumen Plas - [id number] Implanted:Qty : 1 on 07/08/2023 by Naun aRtliff MD at [facility] Right: Chest CR BARD : PERIPHERAL VASCULAR [id number] 10/23/2024 [id number] / / [id number] documented as of this encounter Visit Diagnoses Diagnosis Malignant neoplasm of upper-outer quadrant of right breast in female, estrogen receptor positive (HCC)- Primary Chemotherapy induced nausea and vomiting Nausea with vomiting Dehydration documented in this encounter Care Teams Hospice Clinical Marketer Relationship Specialty Start Date End Date Charlene York CRNP [address] [place] [address] PCP - General Nurse Practitioner 03/11/23 documented as of this encounter
--- OUTSIDE RECORDS SUMMARY | 2023-08-15 09:56 | External Medical Summary | Summary of Care ---
Author Name Unknown Organization [facility] Address [address] [place] [address] Phone [phone] Care Team Providers Care Agricultural Agent Name Role Phone Charelne York Primary Care Provider Reason for Visit * Reason Onset Date Comments Information 07/17/2023 Encounter Details Date Type Department Care Team (Late st Contact Info) Description 07/17/2023 Telephone Hematology/Oncology Treatment, [place] [address] [place] [address] Bimal Sharif MD [address] [place] [address] Information Allergies No known active allergiesdocumented as of this encounter (statuses as of 07/22/2023) Medications Medication Sig Dispensed Refills Start Date [...] as of this encounter (statuses as of 07/22/2023) Active Problems Problem Noted Date Diagnosed Date [...] as of this encounter (statuses as of 07/22/2023) Resolved Problems Problem Noted Date Diagnosed Date Resolved Date Impacted cerumen 03/11/2023 Otitis media 03/11/2023 documented as of this encounter (statuses as of 07/22/2023) Immunizations Name Administration Dates Next Due SARS-COV-2 [...] Telephone Encounter - Anjelica Hammond LPN - 07/22/2023 8:31 AM EDT returning call, stating patient was admitted to [facility] yesterday into room 251. He states thepatient is "feeling a bit better today". He reports the patient may decide to discuss her chemotherapy treatment with Dr. Sharif after she is discharged. He denies any needs or requests at this time. He will contact us when the patient is discharged from the hospital. * Telephone Encounter - Pilar Viera RN [...] Description 08/03/2023 7:00 AM EDT Laboratory Laboratory [facility] [place] [address] [phone] Garth Parra [place] [address] [address] 08/03/2023 8:00 AM EDT Office Visit Hematology/Oncology Yasmin Aida [place] [address] [phone] Tatiana Grullon CRNP [address] [place] [address] 08/03/2023 8:30 AM EDT Hem/Onc Treatment [place] [address] [facility] [phone] Aida, Chair 4 Hem Onc [place] [address] [facility] [place] [address] Health Maintenance Due Date Last Done Comments [...] this encounter Medical Devices Implanted Type Area Stacker Tender Device Identifier Shelf Expiration Date Model / Serial / Lot Power Port 8fr Sngl Lumen Plas - [id number] Implanted:Qty : 1 on 07/08/2023 by Naun Ratliff MD at OR [facility] Right: Chest CR BARD : PERIPHERAL VASCULAR [id number] 10/23/2024 [id number] / / [id number] documented as of this encounter Visit Diagnoses Diagnosis Malignant neoplasm of upper-outer quadrant of right breast in female, estrogen receptor positive (HCC)- Primary Chemotherapy induced nausea and vomiting Nausea with vomiting Dehydration documented in this encounter Care Teams Agricultural Agent Relationship Specialty Start Date End Date Charlene York CRNP [address] [address] PCP - General Nurse Practitioner 03/11/23 documented as of this encounter
--- OUTSIDE RECORDS SUMMARY | 2023-08-15 09:56 | External Medical Summary | Summary of Care ---
Author Name Unknown Organization [facility] Address [address] [place] [address] Phone [phone] Care Team Providers Care Environmental Health And Safety Intern Name Role Phone Charlene York Primary Care Provider Reason for Visit * Reason Onset Date Comments Hospital Follow-Up WENT TO [facility] AFTER FIRST CHEMO TX, HAD TO GO TO ER, VERY SICK. Hospital Follow-Up 07/28/2023 Encounter Details Date Type Department Care Team (Late st Contact Info) Description 07/28/2023 8:20 AM EDT [facility] [place] [address] Charlene York CRNP 132 [facility] [place] [address] Hospital discharge follow-up*; Malignant neoplasm of upper-outer quadrant of right breast in female, estrogen receptor positive (HCC); Chemotherapy induced nausea and vomiting; Chemotherapy-induced enteritis; Change of skin related to chemotherapy; Ventral hernia without obstruction or gangrene Allergies No known active allergiesdocumented as of [...] Sign Reading Time Taken Comments Blood Pressure 102/62 07/28/2023 8:15 AM EDT Pulse 75 07/28/2023 8:15 AM EDT Temperature - - Respiratory Rate - - Oxygen Saturation - - Inhaled Oxygen Concentration - - Weight 61.9 kg (136 lb 6 oz) 07/28/2023 8:15 AM EDT Height - - Body Mass Index 22.01 07/08/2023 8:35 AM EDT documented in this encounter Progress Notes * Charlene York CRNP - 07/28/2023 8:30 AM EDT Images from the original note were not included. SUBJECTIVE: Sue Rivas is a 73 year old female. Chief Complaint Patient presents with Hospital Follow-Up WENT TO HOSPITAL AFTER FIRST CHEMO [place], HAD TO GO TO ER, VERY SICK. Hospital Follow-Up Recent Admission: Patient was recently admitted to [facility] The date of discharge was 07/26/2023. Discharge report receivedand reviewed. HPI: Sue is here for hospital follow up. She was admitted to [facility] for chemo associated gastroenteritis. Since discharge she is no longer vomiting or with diarrhea. Denies nausea. She is scheduled to have repeat chemo on Thursday08/03/2023. Denies fever. CT images reviewed. Showing thickening of colon. Troponin was elevated but suspected due to chemo associated stress. OF note she has a rash. Present since last Thursday. Was worse on face but now improved. No itching or pain. It is raised. Denies exposure to weeds or plants. Hair is falling out. 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 dexAMETHasone 4 MG Oral Tablet Take 2 [...] as needed for Nausea. 60 Tablet 2 Methotrexate 2.5 MG Oral Tablet Take by mouth once a week. 6 tablets once a week (Patient not taking: Reported on 07/28/2023) Orencia 250 MG Intravenous Solution Reconstituted (Abatacept) Administer intravenously. (Patient not taking: Reported on 07/28/2023) No current facility-administered medications for this visit. Current and discharge medications have been reconciled. Review of patient's allergies indicates: No Known Allergies OBJECTIVE: BP 102/62 | Pulse 75 | Wt 61.9 kg (136 lb 6 oz) | BMI 22.01 kg/m | BSA 1.7 m REVIEW OF SYSTEMS: Review of Systems Constitutional: Positive for fatigue. Negative for fever. Respiratory: Negative for shortness of breath. Cardiovascular: Negative for chest pain. Gastrointestinal: Negative for abdominal pain, diarrhea, nausea and vomiting. Now gi symptoms resolved Skin: Positive for rash. PHYSICAL EXAM: BP 102/62 | Pulse 75 | Wt 61.9 kg (136 lb 6 oz) | BMI 22.01 kg/m | BSA 1.7 m Physical Exam HENT: Head: Normocephalic. Eyes: Pupils: Pupils are equal, round, and reactive to light. Cardiovascular: Rate and Rhythm: Normal rate and regular rhythm. Pulmonary: Effort: Pulmonary effort is normal. Breath sounds: Normal breath sounds. Abdominal: General: Bowel sounds are normal. Palpations: Abdomen is soft. Tenderness: There is no abdominal tenderness. Musculoskeletal: General: Normal range of motion. Cervical back: Normal range of motion. Skin: Findings: Erythema and rash present. Rash is macular and papular. Neurological: General: No focal deficit present. Mental Status: She is alert and oriented to person, place, and time. Psychiatric: Mood and Affect: Mood normal. Behavior: Behavior normal. Thought Content: Thought content normal. Judgment: Judgment normal. ASSESSMENT: 1. Hospital discharge follow-up - DISCH MED RECON CUR MED LIS 2. Malignant neoplasm of upper-outer quadrant of right breast in female, estrogen receptor positive(HCC) S/P CHEMOTHERAPY causing moderate to severe SE 3. Chemotherapy induced nausea and vomiting Improved now She has follow up with oncology on Thursday 4. Chemotherapy-induced enteritis Confirms by ct scan Pain is resolved Diarrhea is resolved 5. Change of skin related to chemotherapy Erythematous, macular/papular rash of face and arms Copy to oncology provider to be aware 6. Ventral hernia without obstruction or gangrene On exam and noted on CT scan I spent a total of 40-54 minutes (exact time 40 mins) on the date of service in preparation, delivery, and documentation of the care provided to Sue Rivas excluding any time spent in the performance of separately billed services. DIMITRIOS Kuo documented in this encounter Plan of Treatment Upcoming Encounters Date Type Department Care Team (Late st Contact Info) Description 08/03/2023 7:00 AM EDT Laboratory Laboratory [facility] [place] [address] [place] [phone] Garth Parra [address] [facility] [place] [address] 08/03/2023 8:00 AM EDT Office Visit Hematology/Oncology [facility] [place] [address] [address] [place] [phone] Tatiana Grullon CRNP 400 [facility] [place] [address] 08/03/2023 8:30 AM EDT Hem/Onc Treatment Hematology/Oncology Treatment, [place] [address] [place] [phone] Park, Chair 4 Hem Onc Scenery [address] [place] [address] 11/05/2023 7:40 AM EDT Office Visit [facility] [address] [place] [address] Charlene York CRNP [address] [place] [address] Health Maintenance Due Date Last Done Comments [...] this encounter Medical Devices Implanted Type Area Ballpoint Pen Assembly Machine Operator Device Identifier Shelf Expiration Date Model / Serial / Lot Power Port 8fr Sngl Lumen Plas - [id number] Implanted:Qty : 1 on 07/08/2023 by Naun Ratliff MD at OR [facility] Right: Chest CR BARD : PERIPHERAL VASCULAR [id number] 10/23/2024 [id number] / / [id number] documented as of this encounter Visit Diagnoses Diagnosis Hospital discharge follow-up- Primary Other follow-up examination Malignant neoplasm of upper-outer quadrant of right breast in female, estrogen receptor positive (HCC) Chemotherapy induced nausea and vomiting Nausea with vomiting Chemotherapy-induced enteritis Toxic gastroenteritis and colitis Change of skin related to chemotherapy Changes in skin texture Ventral hernia without obstruction or gangrene Ventral hernia, unspecified, without mention of obstruction or gangrene documented in this encounter Care Teams Environmental Health And Safety Intern Relationship Specialty Start Date End Date Charlene York CRNP [address] [address] PCP - General Nurse Practitioner 03/11/23 documented as of this encounter"
--- NOTE | 2023-08-15 10:34 | Emergency Department Note ---
Impression & Plan Cellulitis of chest wall, Vascular port complication, Breast cancer ED Provider Note CHIEF COMPLAINT: Right chest wall swelling/pain HISTORY OF PRESENTING ILLNESS: This is a 73-year-old female who presents to the emergency department by private vehicle with concern for a possible Port-A-Cath infection. The patient states that she has a right port that was placed about 2 months ago for the purposes of chemotherapy treatments secondary to breast cancer which was diagnosed in March of this year. Patient reports that she last had the port accessed 4 days ago to receive IV fluids for dehydration. She states at the time of access it seem more painful than usual and the port was bleeding for a few days afterwards. She states last night the area started to get more sore and today she noticed redness and swelling going up towards her neck. She has not noticed any pus discharge. She has not had any fevers, chills or vomiting. She denies any chest pain, shortness of breath, dizziness or syncope. She receives chemo through the port every 3 weeks, her last dose was 11 days ago. She denies receiving blood transfusions. She is not on radiation. She does note a rash on her face and arms that started after she began chemotherapy, the rash is not itchy or painful. REVIEW OF SYSTEMS: A complete 10 point review of systems was reviewed with the patient with pertinent positives and negatives as per history of present illness. All else were negative. PAST MEDICAL HISTORY: Rheumatoid arthritis, osteoarthritis, breast cancer, history of cholecystectomy SOCIAL HISTORY: Lives at home with her , denies tobacco use ALLERGIES: No known allergies PHYSICAL EXAM: CONSTITUTIONAL: Pleasant and cooperative. Nontoxic-appearing and in no acute distress. Well appearing and well nourished. HEENT: Normocephalic, atraumatic. PERRL, EOMI. TMs normal. Pharynx normal. Airway patent. NECK: Supple, full active range of motion without discomfort. CHEST WALL: There is a Port-A-Cath site on the right anterior chest wall, appears swollen, erythematous, very tender to palpation. Several scabbed lesions, dark blood oozes from the lesions with light palpation over the area and slight fluctuance. Erythema, swelling, and warmth extends up the anterior chest wall to the base of the right neck, tender to palpation throughout. No palpable crepitus. RESPIRATORY: Clear to auscultation bilaterally with no wheezing, crackles, rhonchi or stridor. Equal expansion bilaterally. CARDIOVASCULAR: Regular rate and rhythm with no murmurs, rubs or gallops. Normal peripheral perfusion. No extremity edema. GASTROINTESTINAL: Soft, nontender, nondistended. No palpable masses or HSM. Bowel sounds present in all quadrants. MUSCULOSKELETAL: Full range of motion of all joints without discomfort. INTEGUMENTARY: No rash or other significant dermatologic conditions noted. NEUROLOGIC: Alert and oriented X 4 with normal affect. No focal neurologic deficits noted. Normal strength and sensation in all 4 extremities. Normal speech. Normal gait observed. ED COURSE AND MEDICAL DECISION MAKING: CC: Patient presenting with complaint of right chest wall swelling/pain DIFFERENTIAL DIAGNOSIS: Includes, but not limited to indwelling catheter infection, venous thrombosis, cellulitis, abscess, hematoma, allergic reaction, pulmonary embolism, sepsis/bacteremia, among others. INTERPRETATION OF LABS: Leukocytosis (appears similar to previous labs), mild anemia, normal platelets, mild hypokalemia, hypochloremia, and hypomagnesemia, normal renal function, mildly elevated alk phos, otherwise normal liver enzymes. Lactate normal. Procalcitonin mildly elevated. Coagulation factors within normal limits. EKG: Indication was chest wall pain. Shows normal sinus rhythm with a rate of 89 bpm, no ST elevation or depression, no ectopy, QT has lengthened when compared to previous EKG from 10/05/2004 by my interpretation. MEDICATION RECONCILIATION: I attest that I have personally reviewed the patient's current medication list. INITIAL VITAL SIGNS REVIEW: I reviewed the patient's initial vital signs and interpret them as follows: T: Afebrile; BP: Mildly hypertensive; HR: Within normal limits; RR: Within normal limits; Pulse Ox: Within normal limits on room air. MDM SUMMARY: Patient was evaluated at bedside, history and physical exam performed. Patient is alert and oriented, in no acute distress, resting calmly in the stretcher. She is afebrile and nontoxic-appearing. Airway patent. Moderate right-sided neck and chest wall swelling, erythema, and tenderness, warm to the touch. Scabbing, erythema, swelling, and tenderness around the indwelling port cath as well. Physical exam finding most concerning for cellulitis/catheter infection, with a thrombus also a concern. Orders were placed for labs, blood cultures x 2, lactate, procalcitonin, IV fluid bolus, chest x-ray, EKG, CT angio of the neck and chest and ultrasound soft tissue of the neck/chest. Orders were placed for IV cefepime and vancomycin to cover for infection. Cardiac monitoring: An order was placed for continuous cardiac monitoring. The monitor shows a rate of 82 bpm with normal sinus rhythm. Initial plan was to access the indwelling catheter to draw a blood culture and infuse antibiotics, however the patient has active bleeding from the catheter site, will avoid accessing the port for now. 2 sets of blood cultures were drawn and she is receiving IV antibiotics. Labs and imaging reviewed, leukocytosis which appears consistent with previous labs, mild anemia, mild hypokalemia, mild hypochloremia, mild hypomagnesemia. Lactate was normal and procalcitonin was only mildly elevated. Chest x-ray was clear with no acute abnormality noted. CTA of the neck and chest were reviewed. CTA of the neck noted edema and inflammation in the right subclavicular and upper chest wall soft tissues suggestive of cellulitis with no fluid collection to indicate an abscess, there was also possible thrombus noted around the catheter within the right internal jugular. A soft tissue venous ultrasound was ordered for further evaluation of thrombus. CTA of the chest was negative for PE. I spoke on the phone with VONDA Potter with the [facility], she will evaluate the patient for admission. Potassium and magnesium replacement per inpatient team. Awaiting ultrasound to determine anticoagulation. Patient reassessed throughout ED stay, she has remained hemodynamically stable and afebrile, and pain is well-controlled. The patient was updated on all results and plan for admission, all questions were answered to the best of my ability and the patient was agreeable to this plan. The patient was stable at the time of admission. Patient discussed with Dr. Navarro, ED attending, who also evaluated the patient and agrees with my assessment, plan, and disposition. The chart was completed utilizing [employer] voice recognition software. Grammatical errors, random word insertions, pronoun errors, and incomplete sentences are an occasional consequence of this system due to software limitations, ambient noise, and hardware issues. Any formal questions or concerns about the content, text, or information contained within the body of this dictation should be directly addressed to the nurse practitioner for clarification. Past Med/Surg History Problem List (Updated 08/15/23 @ 18:08 by DIMITRIOS Park) Breast cancer (Acute) Vascular port complication (Acute) Cellulitis of chest wall (Acute) Elevated troponin (Acute) Leukocytosis (Acute) Nausea & vomiting Abdominal pain (Acute) Medical History (Updated 08/15/23 @ 18:08 by DIMITRIOS Park) Rheumatoid arthritis Osteoarthrosis Malignant neoplasm of breast (female) Surgical History (Updated 07/21/23 @ 18:00 by Nisha Vinson MD) S/P cholecystectomy History of insertion of tunneled central venous catheter (CVC) with port Family History (Updated 07/21/23 @ 18:01 by Nisha Vinson MD) Other Cancer Coronary heart disease Heart disease Hypertension Social History Smoking Status: Never smoker Hx Alcohol Use: No Hx Substance Use: No Preferred Language: Japanese Communication Ability: Effective Dispatcher Radioactive Waste Disposal Required: No Beliefs That Will Affect Care: None Current Living Situation: Spouse Feels Safe at Home: Yes Assistive Devices: None Allergies Allergies Allergy/AdvReac Type Severity Reaction Status Date / Time No Known Allergies Allergy Unverified 07/21/23 09:01 Home Meds Home Medications Medication Instructions Recorded Confirmed Chemo Treatment 1 dose miscellaneous UD 07/21/23 08/15/23 calcium carbonate (Calcium 600) 600 mg PO BID 07/21/23 08/15/23 dexamethasone 4 mg tablet 4 mg PO UD 07/21/23 08/15/23 folic acid 1 mg tablet 1 mg PO DAILY 07/21/23 08/15/23 ondansetron HCl 8 mg tablet 8 mg PO DIRECTED PRN n/v 07/21/23 08/15/23 prochlorperazine maleate 10 mg 10 mg PO Q6H PRN n/v 07/21/23 08/15/23 tablet diphenoxylate-atropine 2.5 1 tab PO QID PRN Diarrhea 08/15/23 08/15/23 mg-0.025 mg tablet Results & Data (ED) Vital Signs Vital Signs - 24 hr 08/15/23 09:47 08/15/23 10:53 Temperature 36.6 C Temperature Source Temporal Artery Scan Pulse Rate 88 Pulse Rate [Apical] 85 Respiratory Rate 18 18 Respiratory Effort / Characteristics Non-Labored Respiratory Depth Normal Blood Pressure 145/79 H Blood Pressure [Right Arm] 135/75 Blood Pressure Mean 101 Blood Pressure Mean [Right Arm] 95 Pulse Oximetry 97 97 Oxygen Delivery Method Room Air Room Air Sepsis Recent Fever Within 48 Hours No Sepsis New/Unexplained Change in Mental Status N/A Sepsis Action Taken by Nursing No Action Required Laboratory Data 08/15/23 10:20 08/15/23 10:20 Lab Results 08/15/23 Range/Units 10:20 WBC 19.87 H (4.8-10.8) K/ul RBC 4.07 L (4.20-5.40) M/uL Hgb 12.0 (12.0-16.0) g/dl Hct 36.6 L (37.0-47.0) % MCV 89.9 (80.0-100.0) fL MCH 29.5 (25.0-34.0) pg MCHC 32.8 (32.0-36.0) g/dL RDW Std Deviation 45.2 (36.4-46.3) fL RDW Coeff of Vitaly 13.9 (11.5-14.5) % Plt Count 170 (130-400) K/uL MPV 9.8 (9.4-12.4) fL Immature Gran % (Auto) 3.0 % Neut % (Auto) 86.7 % Lymph % (Auto) 6.0 % [place] % (Auto) 3.9 % Eos % (Auto) 0.0 % Baso % (Auto) 0.4 % Neut # (Auto) 17.24 H (1.40-6.50) K/uL Lymph # (Auto) 1.20 (1.20-3.40) K/uL [place] # (Auto) 0.77 H (0.11-0.59) K/uL Eos # (Auto) 0.00 (0.00-0.50) K/uL Baso # (Auto) 0.07 (0.00-0.20) K/uL Immature Gran # (Auto) 0.59 H (0.01-0.20) K/uL PT 10.9 (9.0-12.0) Seconds INR 1.0 (0.9-1.1) APTT 28 (21-31) Seconds PTT Ratio 1.0 Sodium 136 (136-145) mmol/L Potassium 3.1 L (3.5-5.1) mmol/L Chloride 96 L (98-107) mmol/L Carbon Dioxide 32 (21-32) mmol/L Anion Gap 8 (3-11) BUN 16 (6-23) mg/dl Creatinine 1.11 (0.6-1.2) mg/dl Est Cr Clr Drug Dosing 42.9 ml/min Est GFR ( Amer) 57.5 ml/min Est GFR (Non-Af Amer) 49.6 ml/min BUN/Creatinine Ratio 14.4 (10-20) Glucose 110 H (70-99(Fasting)) mg/dl Lactate 0.8 (0.4-2.0) mmol/L Calcium 9.4 (8.6-10.3) mg/dl Magnesium 1.5 L (1.7-2.4) mg/dl Total Bilirubin 0.6 (0.2-1.0) mg/dl AST 25 (13-39) U/L ALT 33 (7-52) U/L Alkaline Phosphatase 108 H (34-104) U/L Total Protein 6.4 (6.0-8.3) gm/dl Albumin 3.9 (3.4-5.0) gm/dl Globulin 2.5 (2.5-4.0) gm/dl Albumin/Globulin Ratio 1.6 (0.9-2) Procalcitonin 0.09 (0-0.5) ng/ml Administered Medications Acetaminophen (Acetaminophen 325 Mg Tab) 650 mg PO Q4H PRN PRN Reason: Moderate Pain (Scale 4, 5, 6) Stop: 09/14/23 16:30 Last Admin: 08/15/23 17:13 Dose: 650 mg Documented By: DOMINGA Sodium Chloride (Nss) 1,000 mls @ 125 mls/hr IV .Q8H STA Stop: 08/15/23 18:16 Last Admin: 08/15/23 10:41 Dose: 125 mls/hr Documented By: PHAN Prochlorperazine (Prochlorperazine Maleate 10 Mg Tab) 10 mg PO Q6H PRN PRN Reason: nausea/vomiting Last Admin: 08/15/23 18:06 Dose: 10 mg Discontinued Medications Enoxaparin Sodium (Enoxaparin Inj 40 Mg/0.4 Ml Syr) 40 mg SQ QAM DANIEL Stop: 09/14/23 13:29 Last Admin: 08/15/23 14:18 Dose: 40 mg Documented By: PHAN Cefepime HCl (Maxipime) 2,000 mg in 20 mls @ 5 mls/min IV NOW STA; Protocol Stop: 08/15/23 10:46 Last Admin: 08/15/23 11:31 Dose: 5 mls/min Documented By: PHAN Vancomycin HCl 1,250 mg/ (Sodium Chloride) 525 mls @ 200 mls/hr IV NOW ONE Stop: 08/15/23 14:44 Last Infusion: 08/15/23 15:51 Dose: Infused Documented By: Admin: 08/15/23 13:13 Dose: 200 mls/hr Documented By: PHAN Potassium Chloride (K Dionicio / Wtr) 10 meq in 100 mls @ 100 mls/hr IV Q1H [facility] Stop: 08/15/23 14:59 Last Infusion: 08/15/23 15:38 Dose: Infused Documented By: Admin: 08/15/23 14:19 Dose: 100 mls/hr Documented By: Infusion: 08/15/23 14:13 Dose: Infused Documented By: Admin: 08/15/23 13:13 Dose: 100 mls/hr Documented By: PHAN Magnesium Sulfate/Dextrose (Magnesium Sulfate / D5w) 1 gm in 100 mls @ 50 mls/hr IV Q2H [facility] Stop: 08/15/23 16:59 Last Admin: 08/15/23 15:41 Dose: 50 mls/hr Documented By: Infusion: 08/15/23 15:13 Dose: Infused Documented By: Admin: 08/15/23 13:13 Dose: 50 mls/hr Documented By: PHAN Ioversol (Optiray 320 125ml) 112 ml IV ONCE ONE Stop: 08/15/23 11:46 Last Admin: 08/15/23 11:45 Dose: 112 ml Documented By: ABY Lidocaine/Prilocaine (Lidocaine/Prilocaine 2.5% Ea Crm) 1 each EXT NOW ONE Stop: 08/15/23 10:18 Last Admin: 08/15/23 10:57 Dose: 1 each Documented By: PHAN Ondansetron HCl (Ondansetron Inj 2 Mg/Ml 2 Ml Vial) Confirm Administered Dose 4 mg .ROUTE .STK-MED ONE Stop: 08/15/23 16:45 Last Admin: 08/15/23 16:45 Dose: 4 mg Documented By: DOMINGA Potassium Chloride (Potassium Chloride Crtab 20 Meq Tabcr) 40 meq PO NOW STA Stop: 08/15/23 12:50 Last Admin: 08/15/23 13:13 Dose: 40 meq Documented By: MMG Imaging Data Radiologist's Impression: Chest X-Ray 08/15/23 10:17 SINGLE VIEW CHEST CLINICAL HISTORY: Swelling and erythema at the infusion port site. FINDINGS: An AP, portable, upright chest radiograph is obtained. No prior studies are available for comparison at the time of dictation. A right-sided central venous infusion port is in place. Imaged portions of the catheter appear intact. The cardiomediastinal silhouette is top normal for projection noting atherosclerotic calcification of the thoracic aorta. The lungs and pleural spaces are clear. No pneumothorax is seen. The skeletal structures are osteopenic. The bony thorax is grossly intact. IMPRESSION: No acute cardiopulmonary abnormality is identified. ACT 112: Negative or not required by law. Electronically signed by: Sourav Dupree M.D. 08/15/2023 10:37 AM Chest CTA 08/15/23 10:24 CT ANGIOGRAM OF THE CHEST CLINICAL HISTORY: Swelling and erythema around a central venous infusion port. COMPARISON STUDY: Chest x-ray dated 08/15/2023. TECHNIQUE: Following the IV administration of 112 cc of Optiray 320, CT angiogram of the chest was performed from the upper abdomen to the thoracic inlet utilizing the pulmonary embolus protocol. Images are reviewed in the axial, sagittal, and coronal planes. 3-D MIPS images are created and assessed. IV contrast was administered without complication. A dose lowering technique was utilized adhering to the principles of ALARA. The examination is degraded by streak artifact from the arms which could not be elevated above the chest. CT DOSE: 671.86 mGy.cm FINDINGS: Soft tissues: A right internal jugular central venous infusion port is in place. There is inflammation and edema within the right supraclavicular soft tissues and right upper chest wall around the infusion port. No fluid collection is seen to suggest abscess. There may be thrombus within the internal jugular vein around the catheter. Thyroid: Low-attenuation thyroid nodules measure up to 1 mm. Thoracic aorta: The thoracic aorta is normal in caliber and demonstrates standard 3-vessel arch anatomy. No dissection is seen. Pulmonary vasculature: The pulmonary trunk is normal in caliber. There are no filling defects identified in main, lobar, or segmental pulmonary branches to suggest pulmonary embolus. Heart: The heart is top normal in size and without pericardial effusion. There are coronary artery calcifications. Lungs and pleural spaces: There is no airspace consolidation or pleural effusion. The trachea and central airways are clear. Dependent atelectasis is seen at the lung bases. There is a 3 mm left upper lobe pulmonary nodule seen on image #193. Mediastinum: There is no mediastinal lymphadenopathy. Susi: Clear. Axillae: There is no axillary lymphadenopathy. Upper abdomen: Cholecystectomy clips are noted. Partially visualized upper abdominal viscera is within normal limits. Skeletal structures: The skeletal structures are osteopenic. Degenerative change is noted in the shoulders and thoracic spine. No lytic or blastic bony lesions are seen. IMPRESSION: 1. There is no evidence of pulmonary embolus in the main, lobar, or segmental pulmonary arteries. 2. There is no airspace consolidation or pleural effusion. 3. There is inflammation and edema in the right supraclavicular tissues as well as the right upper chest wall around the infusion port. Correlate clinically for evidence of cellulitis. No fluid collection is seen to indicate abscess. 4. Question thrombus in the internal jugular vein around the catheter. This is not well assessed due to mixing and streak artifact. Consider ultrasound correlation for further assessment. 5. There is a 3 mm left upper lobe pulmonary nodule. If warranted this can be followed as per the Fleischner criteria. See below. 6. Additional findings as above. Please refer to below summary of Fleischner criteria recommendations for follow- up of incidental CT nodules (Crystal Tyler, Guidelines for management of small pulmonary nodules detected on CT scans: A statement from the Fleischner Society, Radiology 237: [phone].) SOLID NODULES Solitary nodule size: <6 mm * low risk patients: no follow-up needed * high risk patients: optional CT at 12 months Solitary nodule size: 6-8 mm * low risk patients: follow-up at 6-12 months, then consider further follow-up at 18-24 months * high risk patients: initial follow-up CT at 6-12 months and then at 18-24 months if no change Solitary nodule size: >8 mm * either low or high risk patients - consider follow-up CT at 3 months, and/or CT-PET, and/or biopsy Multiple nodules size: <6 mm * low risk patients: no routine follow-up * high risk patients: optional CT at 12 months Multiple nodules size: 6-8 mm * low risk patients: follow-up at 3-6 months, then consider further follow-up at 18-24 months * high risk patients: follow-up at 3-6 months, then at 18-24 months if no change Multiple nodules size: >8 mm * low risk patients: follow-up at 3-6 months, then consider further follow-up at 18-24 months * high risk patients: follow-up at 3-6 months, then at 18-24 months if no change Note: newly detected indeterminate nodule in persons 35 years of age or older. * low risk patients: minimal or absent history of smoking and/or other known risk factors * high risk patients: history of smoking or of other known risk factors (e.g. first degree relative with lung cancer, or exposure to asbestos, radon, uranium) * if a nodule up to 8 mm is partly solid or is ground glass further follow-up is required after 24 months to exclude possible slow growing adenocarcinoma (ALAYNA) SUBSOLID NODULES Solitary pure ground-glass nodule * nodule size <6 mm - no CT follow-up required * nodule size >=6 mm - follow-up CT at 6-12 months, then every 2 years until 5 years Solitary part-solid nodule * nodule size <6 mm - no CT follow-up required * nodule size >=6 mm - follow-up CT at 3-6 months. If unchanged, and solid component remains <6 mm, then annual follow-up for 5 years Multiple subsolid nodules * nodule size <6 mm - follow-up CT at 3-6 months, consider further follow-up at 2 and 4 years if stable * nodule size >=6 mm - follow-up CT at 3-6 months, subsequent management based on the most suspicious nodule(s) ACT 112: Negative or not required by law. Electronically signed by: Sourav Dupree M.D. 08/15/2023 2:07 PM Neck CTA 08/15/23 10:24 CT ANGIOGRAM OF THE NECK CLINICAL HISTORY: Swelling and erythema around an infusion port catheter. COMPARISON STUDY: No priors. TECHNIQUE: Following the IV administration of 112 of Optiray 320, CT angiogram of the neck was performed from the aortic arch to the skull base. Images are reviewed in the axial, sagittal, and coronal planes. 3-D MIPS images are created and assessed. IV contrast was administered without complication. All measurements were calculated based on NASCET criteria. A dose lowering technique was utilized adhering to the principles of ALARA. FINDINGS: Thoracic aorta: There is moderate atherosclerotic calcification of the thoracic aorta. Visualized portions of the thoracic aorta are normal in caliber. The aortic arch demonstrates standard 3-vessel anatomy. Right carotid arterial system: The right common carotid artery is widely patent, as are the right internal and external carotid arteries. Left carotid arterial system: The left common carotid artery is widely patent, as are the left internal and external carotid arteries. Vertebral arteries: The vertebral arteries are widely patent bilaterally noting right-sided dominance. Subclavian arteries: Widely patent bilaterally. Jugular veins: A right internal jugular centimeters infusion port is in place. There may be thrombus around the infusion port catheter at the thoracic inlet. This difficult to assess due to artifact. The internal jugular veins are otherwise patent bilaterally. Brain parenchyma: The visualized brain parenchyma the skull base is within normal limits. Lung apices: Partially visualized upper lobe lung parenchyma appears clear. Soft tissues: There is inflammation/edema in the right supraclavicular soft tissues and right upper chest wall around the infusion port catheter. No organized/terminal fluid collection is seen to indicate abscess. The visualized pharyngeal soft tissues are normal in appearance noting angiographic phase technique. The oropharyngeal airway appears widely patent. The thyroid gland is normal in size and attenuation. Low-attenuation thyroid nodules measure up to 11 mm. The salivary glands are normal in appearance. No cervical lymphadenopathy is seen. Skeletal structures: The skeletal structures are osteopenic. The visualized calvarium at the skull base appears intact. The imaged cervical spine is maintained noting mild multilevel spondylosis. Sinuses and mastoids: The visualized paranasal sinuses are clear. The mastoid air cells are well pneumatized. IMPRESSION: 1. Unremarkable CT angiogram of the neck. 2. A right internal jugular central venous infusion port is in place. There may be thrombus around the catheter. This is difficult to assess due to streak artifact from the contrast bolus. Consider ultrasound for further evaluation. 3. The internal jugular veins are otherwise patent bilaterally. 4. There is inflammation and edema of the right supraclavicular and upper chest wall soft tissues around the infusion port catheter suggesting cellulitis. Correlate clinically. No fluid collection is seen to indicate abscess. ACT 112: Negative or not required by law. Electronically signed by: Sourav Dupree M.D. 08/15/2023 12:10 PM Discharge Plan Visit Data Chief Complaint: Infection Stated Complaint: PORT INFECTION ED Provider: Cassius Navarro ED Midlevel Provider: Lauren Medina Discharge Problem: Cellulitis of chest wall, Vascular port complication, Breast cancer Patient Disposition: Admitted As Inpatient Condition: Good Discharge Instructions Interventions: ED Discharge Assessment Last Done: 08/15/23 14:30
--- NOTE | 2023-08-15 10:39 | XRay Report ---
SINGLE VIEW CHEST CLINICAL HISTORY: Swelling and erythema at the infusion port site. FINDINGS: An AP, portable, upright chest radiograph is obtained. No prior studies are available for c omparison at the time of dictation. A right-sided central venous infusion port is in place. Imaged po rtions of the catheter appear intact. The cardiomediastinal silhouette is top normal for projection n oting atherosclerotic calcification of the thoracic aorta. The lungs and pleural spaces are clear. No pneumothorax is seen. The skeletal structures are osteopenic. The bony thorax is grossly intact. IMPRESSION: No acute cardiopulmonary abnormality is identified. ACT 112: Negative or not required by law. Electronically signed by: Sourav Dupree M.D. 08/15/2023 10:37 AM
[2023-08-15] MEDS: SODIUM CHLORIDE 0.9% 1,000 ML IV STA (10:41)
[2023-08-15] MEDS: LIDOCAINE/PRILOCAINE 2.5% EA CRM EXT ONE (10:57)
[2023-08-15 11:01] LABS: Albumin Globulin Ratio 1.6 (0.9-2); Albumin Level 3.9 gm/dl (3.4-5.0); BUN Creatinine Ratio 14.4 (10-20); Bilirubin,Total 0.6 mg/dl (0.2-1.0); Calcium 9.4 mg/dl (8.6-10.3); Creatinine Clr Calc Pharmacy 42.9 ml/min; Est GFR (African American) 57.5 ml/min; Est GFR (Non-African American) 49.6 ml/min; Globulin 2.5 gm/dl (2.5-4.0); Potassium 3.1 mmol/L (3.5-5.1); Total Protein 6.4 gm/dl (6.0-8.3)
[2023-08-15 11:05] LABS: Basophils # (auto) 0.07 K/uL (0.00-0.20); Basophils % (auto) 0.4 %; Hematocrit (blood only) 36.6 % (37.0-47.0); Immature Granulocytes # (auto) 0.59 K/uL (0.01-0.20); Mean Corpuscular Hemoglobin 29.5 pg (25.0-34.0); Mean Corpuscular Hgb Conc 32.8 g/dL (32.0-36.0); Mean Corpuscular Volume 89.9 fL (80.0-100.0); Mean Platelet Volume 9.8 fL (9.4-12.4); Monocytes # (auto) 0.77 K/uL (0.11-0.59); Monocytes % (auto) 3.9 %; Neutrophils # (auto) 17.24 K/uL (1.40-6.50); Neutrophils % (auto) 86.7 %; Platelet Count 170 K/uL (130-400); RDW Coefficient of Variation 13.9 % (11.5-14.5); RDW Standard Deviation 45.2 fL (36.4-46.3); Red Blood Count 4.07 M/uL (4.20-5.40); White Blood Count 19.87 K/ul (4.8-10.8)
[2023-08-15 11:11] LABS: Prothrombin Time 10.9 Seconds (9.0-12.0)
[2023-08-15] MEDS: CEFEPIME 2,000 MG/20 ML VIAL IV STA (11:31)
[2023-08-15] MEDS: OPTIRAY 320 125ml IV ONE (11:45)
[2023-08-15] MEDS ORDERED: VANCOMYCIN CONSULT ACTIVE PRN ×2 (12:07→16:31)
--- NOTE | 2023-08-15 12:12 | CT Scan Report ---
CT ANGIOGRAM OF THE NECK CLINICAL HISTORY: Swelling and erythema around an infusion port catheter. COMPARISON STUDY: No priors. TECHNIQUE: Following the IV administration of 112 of Optiray 320, CT angiogram of the neck was perfor med from the aortic arch to the skull base. Images are reviewed in the axial, sagittal, and coronal p lanes. 3-D MIPS images are created and assessed. IV contrast was administered without complication. A ll measurements were calculated based on NASCET criteria. A dose lowering technique was utilized adh ering to the principles of ALARA. FINDINGS: Thoracic aorta: There is moderate atherosclerotic calcification of the thoracic aorta. Visualized por tions of the thoracic aorta are normal in caliber. The aortic arch demonstrates standard 3-vessel bekah jourdan. Right carotid arterial system: The right common carotid artery is widely patent, as are the right int ernal and external carotid arteries. Left carotid arterial system: The left common carotid artery is widely patent, as are the left pricing intern al and external carotid arteries. Vertebral arteries: The vertebral arteries are widely patent bilaterally noting right-sided dominance . Subclavian arteries: Widely patent bilaterally. Jugular veins: A right internal jugular centimeters infusion port is in place. There may be thrombus around the infusion port catheter at the thoracic inlet. This difficult to assess due to artifact. Th e internal jugular veins are otherwise patent bilaterally. Brain parenchyma: The visualized brain parenchyma the skull base is within normal limits. Lung apices: Partially visualized upper lobe lung parenchyma appears clear. Soft tissues: There is inflammation/edema in the right supraclavicular soft tissues and right upper c hest wall around the infusion port catheter. No organized/terminal fluid collection is seen to indica te abscess. The visualized pharyngeal soft tissues are normal in appearance noting angiographic phase technique. The oropharyngeal airway appears widely patent. The thyroid gland is normal in size and a ttenuation. Low-attenuation thyroid nodules measure up to 11 mm. The salivary glands are normal in ap pearance. No cervical lymphadenopathy is seen. Skeletal structures: The skeletal structures are osteopenic. The visualized calvarium at the skull ba se appears intact. The imaged cervical spine is maintained noting mild multilevel spondylosis. Sinuses and mastoids: The visualized paranasal sinuses are clear. The mastoid air cells are well pneu matized. IMPRESSION: 1. Unremarkable CT angiogram of the neck. 2. A right internal jugular central venous infusion port is in place. There may be thrombus around th e catheter. This is difficult to assess due to streak artifact from the contrast bolus. Consider ultr asound for further evaluation. 3. The internal jugular veins are otherwise patent bilaterally. 4. There is inflammation and edema of the right supraclavicular and upper chest wall soft tissues joanna und the infusion port catheter suggesting cellulitis. Correlate clinically. No fluid collection is se en to indicate abscess. ACT 112: Negative or not required by law. Electronically signed by: Sourav Dupree M.D. 08/15/2023 12:10 PM
[2023-08-15 12:13] LABS: Partial Thromboplastin Time 28 Seconds (21-31)
[2023-08-15 12:19] LABS: Magnesium 1.5 mg/dl (1.7-2.4)
--- NOTE | 2023-08-15 12:26 | Emergency Department Note ---
ED Visit Note I was consulted by the Advanced Practice Provider, Lauren. I personally made/approved the management plan and take responsibility for the patient ronan nj. I performed a substantive portion of the visit. This includes the aspects of: -History/Physical/Personally seeing the patient -MDM -I independently interpreted the following studies: CT imaging questions cellulitis in the right chest. Difficult to assess for thrombus. Ultrasound imaging ordered. IV antibiotics administered. Patient will be admitted for further management. .
--- NOTE | 2023-08-15 12:58 | History & Physical Report ---
Date of Service August 15, 2023 Assessment & Plan Plan Ms. Rivas is a 73-year-old woman with history of rheumatoid arthritis no longer on DMARD and right breast carcinoma T1c N0 M0, stage IA who is admitted for management of refractory nausea and vomiting. Patient not on any medications at home outside of calcium supplement and pretreatment for chemo. #Intractable Nausea and vomiting related to chemotherapy #Diarrhea #Right breast cancer, ER and [place] positive, HER2 Jeb positive. Based on MRI of the breast, It is about 2.2 cm, also has 3 satellite lesions in the right eli Planned for 6 cycles of TCH P and then she will have surgical intervention Prescribed Compazine, Zofran for the symptomatic treatment nausea and vomiting; didn't work Took Decadron as part of pre-chemotherapy ( e-prescribed) Stool PCR negative, biofire negative -s/p IV decadron and OD olanzapine with notable improvement -continue 2.5mg OD olanzapine qhs x4 doses -Continue IV compazine -IVF 125cc/hr until intake increases -CLD for now #Leukocytosis received pegfilgrastim s/p treatment 07/13 Potentially 2/2 reactive from N/V and tx above #Elevated troponin low suspicion for ischemic event, likely 2/2 stress of chemo/vomiting Recent echo 05/2023 with no wall motion abnormalities preserved EF trend to peak, tele #Rheumatoid arthritis Previously on methotrexate and Orencia, but discontinued iso chemotherapy DVT lovenox Admission and Anticipated Discharge Date Admission Date: Time spent evaluating patient, direct bedside care, chart review, placing orders, interpretation of diagnostic studies, discussion with consultants, patient, and family members, as well as other required patient management activities is 60 minutes. History of Present Illness Chief Complaint: is a year old woman/gentleman with past medical history remarkable for....presented to [facility] ED due to . In the ED, vitals were notable for BP of , HR of , and O2 sat of . Imaging revealed EKG ED interventions: Consultants: Patient to be admitted to .... for further evaluation and management of .... Primary Care Provider: DIMITRIOS Montoya Allergies Allergy/AdvReac Type Severity Reaction Status Date / Time No Known Allergies Allergy Unverified 07/21/23 09:01 Home Medications Medication Instructions Recorded Confirmed Type Chemo Treatment 1 dose miscellaneous UD 07/21/23 08/15/23 History calcium carbonate (Calcium 600) 600 mg PO BID 07/21/23 08/15/23 History dexamethasone 4 mg tablet 4 mg PO UD 07/21/23 08/15/23 History folic acid 1 mg tablet 1 mg PO DAILY 07/21/23 08/15/23 History ondansetron HCl 8 mg tablet 8 mg PO DIRECTED PRN n/v 07/21/23 08/15/23 History prochlorperazine maleate 10 mg 10 mg PO Q6H PRN n/v 07/21/23 08/15/23 History tablet diphenoxylate-atropine 2.5 1 tab PO QID PRN Diarrhea 08/15/23 08/15/23 History mg-0.025 mg tablet Past Med/Surg History Problem List (Updated 07/22/23 @ 06:53 by Isabela Andres DO) Elevated troponin (Acute) Leukocytosis (Acute) Nausea & vomiting Abdominal pain (Acute) Medical History (Updated 07/22/23 @ 06:53 by Isabela Andres DO) Rheumatoid arthritis Osteoarthrosis Malignant neoplasm of breast (female) Surgical History (Updated 07/21/23 @ 18:00 by Nisha Vinson MD) S/P cholecystectomy History of insertion of tunneled central venous catheter (CVC) with port Family History (Updated 07/21/23 @ 18:01 by Nisha Vinson MD) Other Cancer Coronary heart disease Heart disease Hypertension Social History Smoking Status: Former smoker Hx Alcohol Use: No Hx Substance Use: No Preferred Language: Monegasque Communication Ability: Effective [place] Required: No Beliefs That Will Affect Care: None Current Living Situation: Spouse Feels Safe at Home: Yes Assistive Devices: None Review of Systems Review of Systems: Constitutional: (-) fever/chills, (-) recent loss of weight, (-) appetite changes, (-) night sweats. Head: (-) headache, (-) dizziness. Eye: (-) blurring of vision, (-) double vision, (-) redness. Ear: (-) hearing loss, (-) discharge, (-) vertigo Nose: (-) discharge, (-) bleeding, (-) congestion, (-) post nasal drip. Throat: (-) sore throat, (-) hoarseness of voice, (-) odynophagia. Cardiovascular: (-) chest pain, (-) palpitations, (-) syncope, (-) orthopnea, (- ) PND, (-) leg swelling. Respiratory: (-) shortness of breath, (-) cough, (-) wheezing, (-) hemoptysis. Neuro: (-) weakness in extremities, (-) numbness, (-) tingling, (-) tremor. Gastrointestinal: (-) belly pain, (-) belly distension, (-) nausea, (-) vomit ing, (-) diarrhea, (-) constipation, (-) na, (-) hematemesis, (-) hematochezia, (-) bowel incontinence Genitourinary: (-) hematuria, (-) dysuria, (-) polyuria, (-) hesitancy, (-) frequency, (-) urinary incontinence. Musculoskeletal: (-) myalgia, (-) arthralgia. Skin: (-) rashes. Endocrine: (-) heat/cold intolerance. Psychiatry: (-) depression, (-) hallucination. Physical Exam Physical Exam: GENERAL APPEARANCE: AxOx4, generally well-appearing M/F, no acute distress. HEENT: NC, AT. MMM. EOMI, clear conjunctiva, oropharynx clear. NECK: Supple without lymphadenopathy. No stiffness or restricted ROM. HEART: Normal rate and regular rhythm, normal S1/S1, no m/r/g LUNGS: CTAB, moving air well. No crackles or wheezes are heard. ABDOMEN: Soft, nontender, nondistended with good bowel sounds heard. BACK: No CVAT, no obvious deformity. EXTREMITIES: Without cyanosis, clubbing or edema. NEUROLOGICAL: Grossly nonfocal. Alert and oriented, moving all 4 extremities. CN not formally tested but appear grossly intact. Observed to ambulate with normal gait. Skin: Warm and dry without any rash. Results & Data Results & Data Vital Signs (Past 12 Hours) Vital Signs Temp Pulse Pulse Resp BP BP Pulse Ox 08/15/23 10:53 85 18 135/75 97 08/15/23 09:47 36.6 C 88 18 145/79 H 97 O2 Del Method 08/15/23 10:53 Room Air 08/15/23 09:47 Room Air Laboratory Results Short CBC 08/15/23 Range/Units 10:20 WBC 19.87 H (4.8-10.8) K/ul Hgb 12.0 (12.0-16.0) g/dl Hct 36.6 L (37.0-47.0) % Plt Count 170 (130-400) K/uL BMP 08/15/23 10:20 Sodium 136 Potassium 3.1 L Chloride 96 L Carbon Dioxide 32 BUN 16 Creatinine 1.11 Glucose 110 H Calcium 9.4 Liver Function 08/15/23 Range/Units 10:20 Total Bilirubin 0.6 (0.2-1.0) mg/dl AST 25 (13-39) U/L ALT 33 (7-52) U/L Alkaline Phosphatase 108 H (34-104) U/L Albumin 3.9 (3.4-5.0) gm/dl Medications Administered Home Medications Medication Instructions Recorded Confirmed Last Taken Chemo Treatment 1 dose miscellaneous UD 07/21/23 08/15/23 07/13/23 calcium carbonate (Calcium 600) 600 mg PO BID 07/21/23 08/15/23 08/15/23 dexamethasone 4 mg tablet 4 mg PO UD 07/21/23 08/15/23 Unknown folic acid 1 mg tablet 1 mg PO DAILY 07/21/23 08/15/23 Unknown ondansetron HCl 8 mg tablet 8 mg PO DIRECTED PRN n/v 07/21/23 08/15/23 Unknown prochlorperazine maleate 10 mg 10 mg PO Q6H PRN n/v 07/21/23 08/15/23 Unknown tablet diphenoxylate-atropine 2.5 1 tab PO QID PRN Diarrhea 08/15/23 08/15/23 Unknown mg-0.025 mg tablet Active Medications Generic Name Dose Route Start Last Admin Trade Name Freq PRN Reason Stop Dose Admin Sodium Chloride 1,000 mls @ 125 mls/hr 08/15/23 10:17 08/15/23 10:41 Nss IV 08/15/23 18:16 125 mls/hr .Q8H STA Administration
--- NOTE | 2023-08-15 13:10 | History & Physical Report ---
Date of Service August 15, 2023 Assessment & Plan (1) Leukocytosis: (2) Nausea & vomiting: (3) Rheumatoid arthritis: (4) Malignant neoplasm of breast (female): Plan: Right breast cancer, ER and LA positive, HER2 Jeb positive. R chest wall mediport erythema/edema - Admit to [facility] - mediport pending currently - r/o clot vs hematoma vs infection -Neck CTA has been completed : A right internal jugular central venous infusion port is in place. There may be thrombus around the catheter. This is difficult to assess due to streak artifact from the contrast bolus. Consider ultrasound for further evaluation. The internal jugular veins are otherwise patent bilaterally. There is inflammation and edema of the right supraclavicular and upper chest wall soft tissues around the infusion port catheter suggesting cellulitis. Correlate clinically. No fluid collection is seen to indicate abscess. - Planned for 6 cycles of TCH P and then she will have surgical intervention - has completed last chemo cycle 1.5 mo ago. Pt has chemo rash on her skin from such, non pruritic. Reports appetite is not like it used to be. - Prescribed Compazine, Zofran for the symptomatic treatment nausea and vomiting; didn't work - Took Decadron as part of pre-chemotherapy ( e-prescribed) -Continue IV compazine -IVF 125cc/hr until intake increases -CLD for now Hypokalemia Hypomagnesemia -Replace as needed, trend with a.m. labs Leukocytosis -received pegfilgrastim s/p treatment 07/13 -Potentially 2/2 reactive from N/V and tx above Rheumatoid arthritis Previously on methotrexate and Orencia, but discontinued iso chemotherapy DVT ppx: lovenox Lines: Mediport, PIV x 1 FEN/GI: Regular diet CODE: Full code Dispo: From home, likely to remain in the hospital x 1-2 days A total of 75 minutes were spent with greater than 50% of that time face to face with the patient, personally reviewing all current laboratories, imaging studies, past medication reconciliation, outpatient chart review, and discussion with specialists to collaborate care for the patient with attending. Please see attending documentation for corrections and/or additions. History of Present Illness Primary Care Provider: DIMITRIOS Montoya This is a 73 yo F with PMHx rheumatoid arthritis no longer on DMARD and right breast carcinoma T1c N0 M0, stage IA who is admitted for R mediport erythema, edema and tenderness with concern for infection vs hematoma vs thrombus. She presents to the hospital with complaints of Right IJ mediport tenderness, swelling, and pain with accessing on Thursday earlier this week. She denies any fever, chills, sweats, respiratory complaints. Pt notes that she has seen oozing from the site after the access on Thursday for IV fluids. Today noticed worsening swelling and presented to the ER. She denies any other acute complaints. Does not think food tastes Very good since having her first round of chemo which was approximately 1.5 months ago. She has been taking her medications as prescribed. States that she takes daily nausea pill, Compazine which does provide relief. Allergies Allergy/AdvReac Type Severity Reaction Status Date / Time No Known Allergies Allergy Unverified 07/21/23 09:01 Home Medications Medication Instructions Recorded Confirmed Type Chemo Treatment 1 dose miscellaneous UD 07/21/23 08/15/23 History calcium carbonate (Calcium 600) 600 mg PO BID 07/21/23 08/15/23 History dexamethasone 4 mg tablet 4 mg PO UD 07/21/23 08/15/23 History folic acid 1 mg tablet 1 mg PO DAILY 07/21/23 08/15/23 History ondansetron HCl 8 mg tablet 8 mg PO DIRECTED PRN n/v 07/21/23 08/15/23 History prochlorperazine maleate 10 mg 10 mg PO Q6H PRN n/v 07/21/23 08/15/23 History tablet diphenoxylate-atropine 2.5 1 tab PO QID PRN Diarrhea 08/15/23 08/15/23 History mg-0.025 mg tablet Past Med/Surg History Problem List (Updated 07/22/23 @ 06:53 by Isabela Andres DO) Elevated troponin (Acute) Leukocytosis (Acute) Nausea & vomiting Abdominal pain (Acute) Medical History (Updated 07/22/23 @ 06:53 by Isabela Andres DO) Rheumatoid arthritis Osteoarthrosis Malignant neoplasm of breast (female) Surgical History (Updated 07/21/23 @ 18:00 by Nisha Vinson MD) S/P cholecystectomy History of insertion of tunneled central venous catheter (CVC) with port Family History (Updated 07/21/23 @ 18:01 by Nisha Vinson MD) Other Cancer Coronary heart disease Heart disease Hypertension Social History Smoking Status: Former smoker Hx Alcohol Use: No Hx Substance Use: No Preferred Language: Citizen Of [place] Communication Ability: Effective Cash Applications Analyst Required: No Beliefs That Will Affect Care: None Current Living Situation: Spouse Feels Safe at Home: Yes Assistive Devices: None Review of Systems Review of Systems: Constitutional: No fever, sweats or chills Eyes: No diplopia, no worsening or blurred vision ENT: normal hearing, no trouble swallowing, + mediport erythema, swelling and te nderness as per HPI Respiratory: No cough, sputum, dyspnea at rest or on exertion Cardiovascular: No chest pain, tightness or palpitations Abdomen: No pain, nausea, vomiting, diarrhea or constipation, + food doesn't taste right s/p chemo Musculoskeletal: No joint pain, calf pain, swelling Neurologic: No weakness, numbness/tingling, or balance problems Psychiatric: No anxiety or depression Skin: No rash or itch Physical Exam Physical Exam: General: awake, alert, no apparent distress, thin, white female, deep red spotted skin rash s/p chemotherapy diffusely over body Head: Normocephalic, atraumatic ENT: PERRL, EOMI, no pharyngeal exudate, mucous membranes moist Extremities: Normal inspection, no peripheral edema or erythema Psych: Normal mood and affect Neuro: AAO x 3, no motor deficits, speech is clear, no peripheral sensory deficits Please see attending addendum for remainder of exam. Results & Data Results & Data Vital Signs (Past 12 Hours) Vital Signs Temp Pulse Pulse Resp BP BP Pulse Ox 08/15/23 10:53 85 18 135/75 97 08/15/23 09:47 36.6 C 88 18 145/79 H 97 O2 Del Method 08/15/23 10:53 Room Air 08/15/23 09:47 Room Air Laboratory Results 08/15/23 10:54 Aerobic Blood Culture - Pending Blood Anaerobic Blood Culture - Pending 08/15/23 10:20 Aerobic Blood Culture - Pending Blood Anaerobic Blood Culture - Pending 08/15/23 10:20 WBC 19.87 H RBC 4.07 L Hgb 12.0 Hct 36.6 L MCV 89.9 MCH 29.5 MCHC 32.8 RDW Std Deviation 45.2 RDW Coeff of Vitaly 13.9 Plt Count 170 MPV 9.8 Immature Gran % (Auto) 3.0 Neut % (Auto) 86.7 Lymph % (Auto) 6.0 [place] % (Auto) 3.9 Eos % (Auto) 0.0 Baso % (Auto) 0.4 Neut # (Auto) 17.24 H Lymph # (Auto) 1.20 [place] # (Auto) 0.77 H Eos # (Auto) 0.00 Baso # (Auto) 0.07 Immature Gran # (Auto) 0.59 H PT 10.9 INR 1.0 APTT 28 PTT Ratio 1.0 Sodium 136 Potassium 3.1 L Chloride 96 L Carbon Dioxide 32 Anion Gap 8 BUN 16 Creatinine 1.11 Est Cr Clr Drug Dosing 42.9 Est GFR ( Amer) 57.5 Est GFR (Non-Af Amer) 49.6 BUN/Creatinine Ratio 14.4 Glucose 110 H Lactate 0.8 Calcium 9.4 Magnesium 1.5 L Total Bilirubin 0.6 AST 25 ALT 33 Alkaline Phosphatase 108 H Total Protein 6.4 Albumin 3.9 Globulin 2.5 Albumin/Globulin Ratio 1.6 Procalcitonin 0.09 Diagnostic Findings Chest X-Ray 08/15/23 10:17 SINGLE VIEW CHEST CLINICAL HISTORY: Swelling and erythema at the infusion port site. FINDINGS: An AP, portable, upright chest radiograph is obtained. No prior studies are available for comparison at the time of dictation. A right-sided central venous infusion port is in place. Imaged portions of the catheter appear intact. The cardiomediastinal silhouette is top normal for projection noting atherosclerotic calcification of the thoracic aorta. The lungs and pleural spaces are clear. No pneumothorax is seen. The skeletal structures are osteopenic. The bony thorax is grossly intact. IMPRESSION: No acute cardiopulmonary abnormality is identified. ACT 112: Negative or not required by law. Electronically signed by: Sourav Dupree M.D. 08/15/2023 10:37 AM Neck CTA 08/15/23 10:24 CT ANGIOGRAM OF THE NECK CLINICAL HISTORY: Swelling and erythema around an infusion port catheter. COMPARISON STUDY: No priors. TECHNIQUE: Following the IV administration of 112 of Optiray 320, CT angiogram of the neck was performed from the aortic arch to the skull base. Images are reviewed in the axial, sagittal, and coronal planes. 3-D MIPS images are created and assessed. IV contrast was administered without complication. All measurements were calculated based on NASCET criteria. A dose lowering technique was utilized adhering to the principles of ALARA. FINDINGS: Thoracic aorta: There is moderate atherosclerotic calcification of the thoracic aorta. Visualized portions of the thoracic aorta are normal in caliber. The aortic arch demonstrates standard 3-vessel anatomy. Right carotid arterial system: The right common carotid artery is widely patent, as are the right internal and external carotid arteries. Left carotid arterial system: The left common carotid artery is widely patent, as are the left internal and external carotid arteries. Vertebral arteries: The vertebral arteries are widely patent bilaterally noting right-sided dominance. Subclavian arteries: Widely patent bilaterally. Jugular veins: A right internal jugular centimeters infusion port is in place. There may be thrombus around the infusion port catheter at the thoracic inlet. This difficult to assess due to artifact. The internal jugular veins are otherwise patent bilaterally. Brain parenchyma: The visualized brain parenchyma the skull base is within normal limits. Lung apices: Partially visualized upper lobe lung parenchyma appears clear. Soft tissues: There is inflammation/edema in the right supraclavicular soft tissues and right upper chest wall around the infusion port catheter. No organized/terminal fluid collection is seen to indicate abscess. The visualized pharyngeal soft tissues are normal in appearance noting angiographic phase technique. The oropharyngeal airway appears widely patent. The thyroid gland is normal in size and attenuation. Low-attenuation thyroid nodules measure up to 11 mm. The salivary glands are normal in appearance. No cervical lymphadenopathy is seen. Skeletal structures: The skeletal structures are osteopenic. The visualized calvarium at the skull base appears intact. The imaged cervical spine is maintained noting mild multilevel spondylosis. Sinuses and mastoids: The visualized paranasal sinuses are clear. The mastoid air cells are well pneumatized. IMPRESSION: 1. Unremarkable CT angiogram of the neck. 2. A right internal jugular central venous infusion port is in place. There may be thrombus around the catheter. This is difficult to assess due to streak artifact from the contrast bolus. Consider ultrasound for further evaluation. 3. The internal jugular veins are otherwise patent bilaterally. 4. There is inflammation and edema of the right supraclavicular and upper chest wall soft tissues around the infusion port catheter suggesting cellulitis. Correlate clinically. No fluid collection is seen to indicate abscess. ACT 112: Negative or not required by law. Electronically signed by: Sourav Dupree M.D. 08/15/2023 12:10 PM Code Status & VTE Plan Code Status Full VTE Prophylaxis Plan VTE Prophylaxis will be ordered: Yes Supervising Physician Co-Signing Physician Notes I have seen and discussed the case with the collaborating advanced practitioner. I agree with the above H&P. I have reviewed and confirmed the patients medical history, the findings on physical examination, and the patients diagnosis and treatment plan with Marie BROWNING and agree with the information documented. In short, Ms. Rivas is a 73 yo F with PMHx rheumatoid arthritis no longer on DMARD and right breast carcinoma T1c N0 M0, stage IA who is admitted evaluation of right portacath cellulitis. Patient states it was tender for chemoaccess 08/03, then more so since 08/08 where it continued to ooze. Patient reports feeling in otherwise baseline state of health, no fevers/chills/diarrhea, but notes that the erythema and pain worsened in last 24 hours. GENERAL APPEARANCE: AxOx4, fatigued/chronically ill appearing woman no acute distress. HEENT: NC, AT. MMM. EOMI, clear conjunctiva, oropharynx clear. NECK: Supple without lymphadenopathy. No stiffness or restricted ROM. HEART: Normal rate and regular rhythm, normal S1/S1, no m/r/g LUNGS: CTAB, moving air well. No crackles or wheezes are heard. ABDOMEN: Soft, nontender, nondistended with good bowel sounds heard. BACK: No CVAT, no obvious deformity. EXTREMITIES: Without cyanosis, clubbing or edema. NEUROLOGICAL: Grossly nonfocal. Alert and oriented, moving all 4 extremities. CN not formally tested but appear grossly intact.. Skin: noted erythema and swelling over right upper chest follow tract of port, tenderness to palpation, no warmth, oozing of blood from port site despite not being accessed since admission #Portacath malfunction #Cellulitis around portacath -CTA neck/chest: concern for ?thrombus around port; no pulmonary emboli noted -US pending to assess presence of cath -Blood cultures ordered -cultures not from cath as patient declined 2/2 pain/tenderness at site -Empiric vanc/cefepime at this time rest of plan as above I spent a total of 35 minutes coordinating, documenting, and providing care for this patient excluding time spent in the performance of separately billed services. All of the aforementioned completed outside of collaborating with the assigned advanced practitioner for a full treatment plan. I have reviewed the advanced practitioner's documentation, and I agree with, and take responsibility for the plan of care
[2023-08-15] MEDS: POTASSIUM CHLORIDE / WTR 10 MEQ/100 ML PLCT IV SCH (13:13)
[2023-08-15] MEDS: MAGNESIUM SULFATE / D5W 1 GM/100 ML BAG IV SCH (13:13)
[2023-08-15] MEDS: POTASSIUM CHLORIDE CRTAB 20 MEQ TABCR PO STA (13:13)
[2023-08-15] MEDS: VANCOMYCIN HCL 1,250 MG in SODIUM CHLORIDE 0.9% 500 ML IV ONE (13:13)
--- NOTE | 2023-08-15 14:09 | CT Scan Report ---
CT ANGIOGRAM OF THE CHEST CLINICAL HISTORY: Swelling and erythema around a central venous infusion port. COMPARISON STUDY: Chest x-ray dated 08/15/2023. TECHNIQUE: Following the IV administration of 112 cc of Optiray 320, CT angiogram of the chest was pe rformed from the upper abdomen to the thoracic inlet utilizing the pulmonary embolus protocol. Images are reviewed in the axial, sagittal, and coronal planes. 3-D MIPS images are created and assessed. I V contrast was administered without complication. A dose lowering technique was utilized adhering to the principles of ALARA. The examination is degraded by streak artifact from the arms which could no t be elevated above the chest. CT DOSE: 671.86 mGy.cm FINDINGS: Soft tissues: A right internal jugular central venous infusion port is in place. There is inflammatio n and edema within the right supraclavicular soft tissues and right upper chest wall around the infus ion port. No fluid collection is seen to suggest abscess. There may be thrombus within the internal j ugular vein around the catheter. Thyroid: Low-attenuation thyroid nodules measure up to 1 mm. Thoracic aorta: The thoracic aorta is normal in caliber and demonstrates standard 3-vessel arch anato my. No dissection is seen. Pulmonary vasculature: The pulmonary trunk is normal in caliber. There are no filling defects identif ied in main, lobar, or segmental pulmonary branches to suggest pulmonary embolus. Heart: The heart is top normal in size and without pericardial effusion. There are coronary artery ca lcifications. Lungs and pleural spaces: There is no airspace consolidation or pleural effusion. The trachea and yoandy tral airways are clear. Dependent atelectasis is seen at the lung bases. There is a 3 mm left upper l obe pulmonary nodule seen on image #193. Mediastinum: There is no mediastinal lymphadenopathy. Susi: Clear. Axillae: There is no axillary lymphadenopathy. Upper abdomen: Cholecystectomy clips are noted. Partially visualized upper abdominal viscera is withi n normal limits. Skeletal structures: The skeletal structures are osteopenic. Degenerative change is noted in the shou lders and thoracic spine. No lytic or blastic bony lesions are seen. IMPRESSION: 1. There is no evidence of pulmonary embolus in the main, lobar, or segmental pulmonary arteries. 2. There is no airspace consolidation or pleural effusion. 3. There is inflammation and edema in the right supraclavicular tissues as well as the right upper ch est wall around the infusion port. Correlate clinically for evidence of cellulitis. No fluid collecti on is seen to indicate abscess. 4. Question thrombus in the internal jugular vein around the catheter. This is not well assessed due to mixing and streak artifact. Consider ultrasound correlation for further assessment. 5. There is a 3 mm left upper lobe pulmonary nodule. If warranted this can be followed as per the Fle ischner criteria. See below. 6. Additional findings as above. Please refer to below summary of Fleischner criteria recommendations for follow-up of incidental CT n odules (Crystal Tyler, Guidelines for management of small pulmonary nodules detected on CT scans: A sta tement from the Fleischner Society, Radiology 237: [phone].) SOLID NODULES Solitary nodule size: <6 mm * low risk patients: no follow-up needed * high risk patients: optional CT at 12 months Solitary nodule size: 6-8 mm * low risk patients: follow-up at 6-12 months, then consider further follow-up at 18-24 months * high risk patients: initial follow-up CT at 6-12 months and then at 18-24 months if no change Solitary nodule size: >8 mm * either low or high risk patients - consider follow-up CT at 3 months, and/or CT-PET, and/or biopsy Multiple nodules size: <6 mm * low risk patients: no routine follow-up * high risk patients: optional CT at 12 months Multiple nodules size: 6-8 mm * low risk patients: follow-up at 3-6 months, then consider further follow-up at 18-24 months * high risk patients: follow-up at 3-6 months, then at 18-24 months if no change Multiple nodules size: >8 mm * low risk patients: follow-up at 3-6 months, then consider further follow-up at 18-24 months * high risk patients: follow-up at 3-6 months, then at 18-24 months if no change Note: newly detected indeterminate nodule in persons 35 years of age or older. * low risk patients: minimal or absent history of smoking and/or other known risk factors * high risk patients: history of smoking or of other known risk factors (e.g. first degree relative with lung cancer, or exposure to asbestos, radon, uranium) * if a nodule up to 8 mm is partly solid or is ground glass further follow-up is required after 24 m onths to exclude possible slow growing adenocarcinoma (ALAYNA) SUBSOLID NODULES Solitary pure ground-glass nodule * nodule size <6 mm - no CT follow-up required * nodule size >=6 mm - follow-up CT at 6-12 months, then every 2 years until 5 years Solitary part-solid nodule * nodule size <6 mm - no CT follow-up required * nodule size >=6 mm - follow-up CT at 3-6 months. If unchanged, and solid component remains <6 mm, then annual follow-up for 5 years Multiple subsolid nodules * nodule size <6 mm - follow-up CT at 3-6 months, consider further follow-up at 2 and 4 years if sta ble * nodule size >=6 mm - follow-up CT at 3-6 months, subsequent management based on the most suspiciou s nodule(s) ACT 112: Negative or not required by law. Electronically signed by: Sourav Dupree M.D. 08/15/2023 2:07 PM
[2023-08-15] MEDS: ENOXAPARIN INJ 40 MG/0.4 ML SYR SQ SCH (14:18)
[2023-08-15] MEDS ORDERED: DIPHENOXYLATE/ATROPINE 2.5/0.025MG TAB PO PRN (16:31)
[2023-08-15] MEDS ORDERED: NON-FORMULARY MEDICATION (Ondansetron Hcl 8 mg tablet) PO PRN (16:31)
[2023-08-15] MEDS ORDERED: VANCOMYCIN HCL 1,500 MG in SODIUM CHLORIDE 0.9% 500 ML IV ONE (16:31)
[2023-08-15] MEDS: ONDANSETRON INJ 2 MG/ML 2 ML VIAL ONE (16:45)
[2023-08-15] MEDS: ACETAMINOPHEN 325 MG TAB PO PRN (17:13)
--- NOTE | 2023-08-15 17:14 | Pharmacy Report ---
Pharmacy PK ABX Note - Date of Service August 15, 2023 - Assessment and Plan Assessment 73 year old F receiving empiric vancomycin and cefepime for treatment of possible cellulitis of area surrounding port. Patient with complaints of increased tenderness, swelling, pain, and oozing at right IJ mediport site. PMH includes right breast cancer (last chemo cycle ~1.5 months ago, received pegfilgrastim 07/13) Pertinent microbiologic data includes: blood cultures x 2 (08/14): pending Leukocytosis (WBC ~20K), which is in line w/ recent WBCs in June ~20K s/p pegfilgrastim SCr appears to be near baseline Day # 1 of antimicrobial therapy. Plan Vancomycin * Loading dose: 1250 mg IV x 1 * Maintenance dose: 1250 mg IV every 24 hours * Regimen is predicted to achieve target AUC/EVAN of 400-600 mg/L.hr * Will plan for level if therapy is extended beyond 48 hours Cefepime * 2 g IV q12h - dosing reasonable in light of renal function Pharmacy will continue to follow and will adjust dose/frequency as necessary. Thank you. Pharmacy has transitioned to AUC monitoring for vancomycin. AUC/EVAN is the preferred PK/PD target and is associated with decreased risk of nephrotoxicity compared to traditional trough targets.
[2023-08-15] MEDS ORDERED: Heparin IV Adult Wt-Based Standard *NO* INITIAL Bolus Protocol IV STA (17:43)
[2023-08-15] MEDS: PROCHLORPERAZINE MALEATE 10 MG TAB PO PRN (18:06)
[2023-08-15 19:10] LABS: Basophils # (auto) 0.04 K/uL (0.00-0.20); Basophils % (auto) 0.2 %; Hematocrit (blood only) 31.5 % (37.0-47.0); Hemoglobin 10.6 g/dl (12.0-16.0); Immature Granulocytes # (auto) 0.41 K/uL (0.01-0.20); Lymphocytes # (auto) 1.16 K/uL (1.20-3.40); Lymphocytes % (auto) 5.5 %; Mean Corpuscular Hemoglobin 30.3 pg (25.0-34.0); Mean Corpuscular Hgb Conc 33.7 g/dL (32.0-36.0); Mean Platelet Volume 9.6 fL (9.4-12.4); Monocytes # (auto) 0.64 K/uL (0.11-0.59); Neutrophils # (auto) 18.77 K/uL (1.40-6.50); Neutrophils % (auto) 89.3 %; Platelet Count 137 K/uL (130-400); RDW Coefficient of Variation 14.1 % (11.5-14.5); White Blood Count 21.02 K/ul (4.8-10.8)
[2023-08-15 19:55] LABS: INR 1.1 (0.9-1.1); Partial Thromboplastin Ratio 0.9; Partial Thromboplastin Time 25 Seconds (21-31); Prothrombin Time 11.4 Seconds (9.0-12.0)
--- NOTE | 2023-08-15 20:05 | Ultrasound Report ---
ULTRASOUND OF THE RIGHT CHEST WALL NONVASCULAR CLINICAL HISTORY: Swelling and erythema around an infusion port. COMPARISON STUDY: Chest CT was performed earlier the same day 08/15/2023. FINDINGS: Real-time, grayscale and color flow sonography of the anterior right upper chest wall is pe rformed at the site of interest around the infusion port catheter. There is a complex nonvascular poc ket of fluid within the subcutaneous soft tissues around the catheter. This measures 4.4 x 0.9 x 1.1 cm, and there is surrounding soft tissue edema. The surrounding soft tissues appear mildly hyperemic on color imaging. IMPRESSION: Soft tissue edema with a 4.4 cm complex pocket of fluid in the subcutaneous tissues aroun d the infusion port catheter. This could represent hematoma or abscess and clinical correlation will be essential. Dictated: 08/15/2023 6:08 PM Transcribed: 08/15/2023 7:22 PM Forrest [id number] [email or web address] Electronically signed by: Sourav Dupree M.D. 08/15/2023 8:04 PM
[2023-08-15] MEDS: CALCIUM CARBONATE 1250MG TAB PO SCH (20:31)
[2023-08-15] MEDS: ONDANSETRON INJ 2 MG/ML 2 ML VIAL IV PRN (21:12)
[2023-08-15] MEDS: CEFEPIME 2,000 MG in SYRINGE 0 ML IV SCH (23:24)
--- NOTE | 2023-08-16 00:56 | Ultrasound Report ---
Exam(s): US VENOUS RIGHT UPPER EXTREMITY EXAM: US Duplex Right Upper Extremity Veins CLINICAL HISTORY: Reason for exam: possible thrombus in rt internal jugular vein. TECHNIQUE: Real-time duplex ultrasound scan of the right upper extremity veins integrating B-mode two-dimensional vascular structure, Doppler spectral analysis, color flow Doppler imaging and compression. COMPARISON: CT angiogram of the neck from August 16, 2023 FINDINGS: Deep veins: Unremarkable. No DVT in the internal jugular, subclavian, axillary, or brachial veins. The veins demonstrate normal color flow, are normally compressible, with normal phasic flow and/or augmentation response. Superficial veins: There is thrombosis of the right antecubital vein which appears to be associated with an IV. Soft tissues: No acute findings. Tubes, lines and devices: There is thrombosis of the inferior aspect of the right internal jugular vein which is nonocclusive and appears to be associated with the Port-A-Cath catheter. IMPRESSION: 1. There is thrombosis of the right antecubital vein which appears to be associated with an IV. This is consistent with superficial thrombophlebitis. 2. There is thrombosis of the inferior aspect of the right internal jugular vein which is nonocclusive and appears to be associated with the Port-A-Cath catheter. This could be either acute or chronic. Electronically signed by: Jorge Alberto Leroy MD 08/16/23 00:54 AM
[2023-08-16 01:26] LABS: A calco-baum cmplx NotReported Not Detected (NotDetected); Bact fragilis Not Reported Not Detected (NotDetected); Blood Culture Id Panel See PCR Comment (NotDetected); C auris Not Reported Not Detected (NotDetected); Calbicans Not Reported Not Detected (NotDetected); Candida glabrata Not Reported Not Detected (NotDetected); Candida krusei Not Reported Not Detected (NotDetected); Cneoformans/gatti Not Reported Not Detected (NotDetected); Cparapsilosis Not Reported Not Detected (NotDetected); E cloacae compx Not Reported Not Detected (NotDetected); Efaecalis Not Reported Not Detected (NotDetected); Efaecium Not Reported Not Detected (NotDetected); Enterobacterales Not Reported Not Detected (NotDetected); Escherichia coli Not Reported Not Detected (NotDetected); H influenzae Not Reported Not Detected (NotDetected); K aerogenes Not Reported Not Detected (NotDetected); Koxytoca Not Reported Not Detected (NotDetected); Kpneumoniae grp Not Reported Not Detected (NotDetected); Lmonocyt Not Reported Not Detected (NotDetected); N meningitidis Not Reported Not Detected (NotDetected); P aeruginosa Not Reported Not Detected (NotDetected); Proteus spp Not Reported Not Detected (NotDetected); Salmonella spp Not Reported Not Detected (NotDetected); Smarcescens Not Reported Not Detected (NotDetected); Staph lugdunensis Not Reported Not Detected (NotDetected); Staph spp. Not Reported DETECTED (NotDetected); Staphaureus Not Reported DETECTED (NotDetected); Staphepi Not Reported Not Detected (NotDetected); Stenmaltophilia Not Reported Not Detected (NotDetected); Strep agal(GrpB) Not Reported Not Detected (NotDetected); Strep pneum Not Reported Not Detected (NotDetected); Strep pyog (GrpA) Not Reported Not Detected (NotDetected); Strep spp Not Reported Not Detected (NotDetected); mecAC+MREJ Resistant Gene MRSA Not Detected (NotDetected)
[2023-08-16] MEDS: VANCOMYCIN HCL 1,250 MG in SODIUM CHLORIDE 0.9% 250 ML IV SCH (01:34)
[2023-08-16 01:42] LABS: Basophils # (auto) 0.07 K/uL (0.00-0.20); Basophils % (auto) 0.4 %; Hematocrit (blood only) 32.2 % (37.0-47.0); Hemoglobin 10.7 g/dl (12.0-16.0); Immature Granulocytes # (auto) 0.46 K/uL (0.01-0.20); Immature Granulocytes % (auto) 2.4 %; Lymphocytes # (auto) 0.94 K/uL (1.20-3.40); Lymphocytes % (auto) 4.9 %; Mean Corpuscular Hgb Conc 33.2 g/dL (32.0-36.0); Mean Corpuscular Volume 90.2 fL (80.0-100.0); Monocytes % (auto) 3.1 %; Neutrophils % (auto) 89.2 %; Platelet Count 127 K/uL (130-400); RDW Standard Deviation 46.3 fL (36.4-46.3); Red Blood Count 3.57 M/uL (4.20-5.40); White Blood Count 19.27 K/ul (4.8-10.8)
[2023-08-16 01:58] LABS: BUN Creatinine Ratio 11.1 (10-20); Calcium 8.4 mg/dl (8.6-10.3); Creatinine Clr Calc Pharmacy 52.9 ml/min; Est GFR (Non-African American) 63.9 ml/min; Magnesium 1.9 mg/dl (1.7-2.4); Potassium 3.2 mmol/L (3.5-5.1)
[2023-08-16 02:09] LABS: Partial Thromboplastin Ratio 1.2; Partial Thromboplastin Time 33 Seconds (21-31); Prothrombin Time 11.1 Seconds (9.0-12.0)
[2023-08-16 02:09] LABS: Staphylococcus spp. DETECTED (NotDetected)
[2023-08-16] MEDS: HEPARIN SODIUM/DEXTROSE 25,000 UNITS/500 ML BAG IV SCH (02:23)
--- NOTE | 2023-08-16 07:35 | Hospitalist Progress Note ---
Date of Service August 16, 2023 Assessment & Plan (1) Leukocytosis: (2) Nausea & vomiting: (3) Rheumatoid arthritis: (4) Malignant neoplasm of breast (female): Plan: In short, Ms. Rivas is a 73 yo F with PMHx rheumatoid arthritis no longer on DMARD and right breast carcinoma T1c N0 M0, stage IA who is admitted evaluation of right portacath cellulitis. Patient states it was tender for chemoaccess 08/03, then more so since 08/08 where it continued to ooze. Patient reports feeling in otherwise baseline state of health, no fevers/chills/diarrhea, but notes that the erythema and pain worsened in last 24 hours prior to admission. Patient noted to be febrile, TMAX 38.9 05/27 blood cultures positive GPC US with thrombus. #Probable sepsis 2/2 GPC bacteremia POA #Cellulitis #Portacath, POA leukocytosis, tachycardia, source of infection -2/2 frail stature, IVF hydration achieved via maintenance fluids overnight Blood culture PCR: MSSA discontinue vanc/cefepime -Start Cefazolin -ID consult for line associated infection Repeat blood culture pending Wound care for superficial skin treatment, #Right breast cancer, ER and [place] positive, HER2 Jeb positive #Chemo dermatitis Planned for 6 cycles of TCH P and then she will have surgical intervention Pt has chemo rash on her skin from such, non pruritic. Reports appetite is not like it used to be. Prescribed Compazine, Zofran for the symptomatic treatment nausea and vomiting Took Decadron as part of pre-chemotherapy ( e-prescribed) -Neck CTA has been completed : A right internal jugular central venous infusion port is in place. There may be thrombus around the catheter. This is difficult to assess due to streak artifact from the contrast bolus. Consider ultrasound for further evaluation. The internal jugular veins are otherwise patent bilaterally. There is inflammation and edema of the right supraclavicular and upper chest wall soft tissues around the infusion port catheter suggesting cellulitis. Correlate clinically. No fluid collection is seen to indicate abscess. US doppler: There is thrombosis of the inferior aspect of the right internal jugular vein which is nonocclusive and appears to be associated with the Port-A- Cath catheter. This could be either acute or chronic. -Continue IV compazine prn D/C IVF #Portacath Thrombus -Consult vascular in am -Heparin drip, plan to transition to oral agent #Hypokalemia #Hypomagnesemia -Replace as needed, trend with a.m. labs #Leukocytosis #Immunocompromised -received pegfilgrastim s/p treatment s/p 08/03 treatment; however, notable for bacteremia -Trend CBC, treat infection as above #Rheumatoid arthritis Previously on methotrexate and Orencia, but discontinued iso chemotherapy stable at this time DVT ppx: lovenox Lines: Mediport, PIV x 1 FEN/GI: Regular diet CODE: Full code Admission and Anticipated Discharge Date Admission Date: August 15, 2023 Subjective TMAX 38.9 Patient does report subjective improvement. Discussed infection in blood stream and thrombus on cath, patient reported understanding of admission Denies any subjective fever, chills, or other acute concerns Reports much improvement of pain and tenderness around cath site Physical Exam Constitutional: WD/WN, vitals as above Respiratory: normal respiratory effort, lungs clear to auscultation Cardiovascular: RRR, no murmur, no edema Skin: multiple erythematous scattered lesions on face, upper extremities, and chest; no signs of superimposed infection Erythema overlying portacath much improved from day prior, no tenderness reproduced on todays exam Results & Data Results & Data Vital Signs (Past 12 Hours) Vital Signs Temp Pulse Pulse Resp BP BP Pulse Ox 08/16/23 07:17 95 H 08/16/23 03:12 36.8 C 93 H 18 124/66 96 08/16/23 00:40 99 H 08/15/23 23:04 37.7 C H 101 H 18 127/69 94 08/15/23 22:07 O2 Del Method 08/16/23 07:17 08/16/23 03:12 Room Air 08/16/23 00:40 08/15/23 23:04 Room Air 08/15/23 22:07 Room Air Laboratory Results Short CBC 08/15/23 08/16/23 Range/Units 18:52 01:27 WBC 21.02 H 19.27 H (4.8-10.8) K/ul Hgb 10.6 L 10.7 L (12.0-16.0) g/dl Hct 31.5 L 32.2 L (37.0-47.0) % Plt Count 137 127 L (130-400) K/uL BMP 08/16/23 01:27 Sodium 131 L Potassium 3.2 L Chloride 99 Carbon Dioxide 25 BUN 10 Creatinine 0.90 Glucose 116 H Calcium 8.4 L Diagnostic Findings Venous Doppler Study 08/15/23 20:25 Exam(s): US VENOUS RIGHT UPPER EXTREMITY EXAM: US Duplex Right Upper Extremity Veins CLINICAL HISTORY: Reason for exam: possible thrombus in rt internal jugular vein. TECHNIQUE: Real-time duplex ultrasound scan of the right upper extremity veins integrating B-mode two-dimensional vascular structure, Doppler spectral analysis, color flow Doppler imaging and compression. COMPARISON: CT angiogram of the neck from August 16, 2023 FINDINGS: Deep veins: Unremarkable. No DVT in the internal jugular, subclavian, axillary, or brachial veins. The veins demonstrate normal color flow, are normally compressible, with normal phasic flow and/or augmentation response. Superficial veins: There is thrombosis of the right antecubital vein which appears to be associated with an IV. Soft tissues: No acute findings. Tubes, lines and devices: There is thrombosis of the inferior aspect of the right internal jugular vein which is nonocclusive and appears to be associated with the Port-A-Cath catheter. IMPRESSION: 1. There is thrombosis of the right antecubital vein which appears to be associated with an IV. This is consistent with superficial thrombophlebitis. 2. There is thrombosis of the inferior aspect of the right internal jugular vein which is nonocclusive and appears to be associated with the Port-A-Cath catheter. This could be either acute or chronic. Electronically signed by: Jorge Alberto Leroy MD 08/16/23 00:54 AM Medications Administered Home Medications Medication Instructions Recorded Confirmed Last Taken Chemo Treatment 1 dose miscellaneous UD 07/21/23 08/15/23 07/13/23 calcium carbonate (Calcium 600) 600 mg PO BID 07/21/23 08/15/23 08/15/23 dexamethasone 4 mg tablet 4 mg PO UD 07/21/23 08/15/23 Unknown folic acid 1 mg tablet 1 mg PO DAILY 07/21/23 08/15/23 Unknown ondansetron HCl 8 mg tablet 8 mg PO DIRECTED PRN n/v 07/21/23 08/15/23 Unknown prochlorperazine maleate 10 mg 10 mg PO Q6H PRN n/v 07/21/23 08/15/23 Unknown tablet diphenoxylate-atropine 2.5 1 tab PO QID PRN Diarrhea 08/15/23 08/15/23 Unknown mg-0.025 mg tablet Active Medications Generic Name Dose Route Start Last Admin Trade Name Kenny PRN Reason Stop Dose Admin Acetaminophen 650 mg 08/15/23 16:31 08/16/23 07:33 Acetaminophen 325 Mg Tab PO 09/14/23 16:30 650 mg Q4H PRN Administration Moderate Pain (Scale 4, 5, 6) Calcium Carbonate 1 tab 08/15/23 21:00 08/16/23 08:25 Calcium Carbonate 1250mg Tab PO 09/14/23 20:59 1 tab BID DANIEL Administration Folic Acid 1 mg 08/16/23 09:00 08/16/23 08:25 Folic Acid 1 Mg Tab PO 09/15/23 08:59 1 mg DAILY DANIEL Administration Heparin Sodium/Dextrose 25,000 units in 500 mls @ 21 mls/hr 08/15/23 18:00 08/16/23 09:49 Heparin Sodium/Dextrose IV 09/14/23 17:59 1,050 units/hr .[id number] DANIEL 21 mls/hr Titration Protocol 1,050 UNITS/HR Cefazolin Sodium 2,000 mg in 15 mls @ 3.75 mls/min 08/16/23 12:00 08/16/23 11:58 Ancef 2000mg IV 08/30/23 11:59 3.75 mls/min Q8H DANIEL Administration Mupirocin 1 appln 08/16/23 10:45 08/16/23 11:58 Mupirocin 2% Oint 22 Gm Tube EXT 09/15/23 10:44 1 appln BID DANIEL Administration Ondansetron HCl 4 mg 08/15/23 16:31 08/16/23 12:13 Ondansetron Inj 2 Mg/Ml 2 Ml Vial IV 09/14/23 16:30 4 mg Q4H PRN Administration Nausea And Vomiting Prochlorperazine 10 mg 08/15/23 16:31 08/15/23 18:06 Prochlorperazine Maleate 10 Mg Tab PO 10 mg Q6H PRN Administration nausea/vomiting
[2023-08-16] MEDS: FOLIC ACID 1 MG TAB PO SCH (08:25)
[2023-08-16 09:18] LABS: ANTI-Xa, UFH(UnfractionatedHep 0.52 IU/ml (0.3-0.7)
[2023-08-16] MEDS: POTASSIUM CHLORIDE CRTAB 20 MEQ TABCR PO STA (10:15)
[2023-08-16] MEDS: ceFAZolin 2000MG 2,000 MG/15 ML SYR IV SCH (11:58)
[2023-08-16] MEDS: MUPIROCIN 2% OINT 22 GM TUBE EXT SCH (11:58)
[2023-08-16] MEDS: TRIAMCINOLONE ACET 0.025% OINT 15 GM TUBE EXT PRN (15:23)
[2023-08-16] MEDS: ONDANSETRON 8MG OD TAB PO PRN (16:11)
[2023-08-16] MEDS ORDERED: Nursing to Pharmacy Communication SCH (16:15)
[2023-08-16] MEDS: OLANZapine ZYDIS 5 MG ORALLY DIS. TAB PO STA (16:52)
[2023-08-16] MEDS: LACTATED RINGER'S 1,000 ML IV SCH (16:52)
[2023-08-17 06:39] LABS: Basophils # (auto) 0.09 K/uL (0.00-0.20); Basophils % (auto) 0.6 %; Hematocrit (blood only) 30.7 % (37.0-47.0); Hemoglobin 10.4 g/dl (12.0-16.0); Immature Granulocytes % (auto) 3.6 %; Lymphocytes # (auto) 0.55 K/uL (1.20-3.40); Mean Corpuscular Hemoglobin 30.1 pg (25.0-34.0); Mean Corpuscular Hgb Conc 33.9 g/dL (32.0-36.0); Mean Corpuscular Volume 88.7 fL (80.0-100.0); Mean Platelet Volume 9.9 fL (9.4-12.4); Monocytes # (auto) 0.47 K/uL (0.11-0.59); Monocytes % (auto) 3.4 %; Neutrophils # (auto) 12.25 K/uL (1.40-6.50); Neutrophils % (auto) 88.4 %; Platelet Count 103 K/uL (130-400); RDW Coefficient of Variation 13.9 % (11.5-14.5); Red Blood Count 3.46 M/uL (4.20-5.40); White Blood Count 13.86 K/ul (4.8-10.8)
[2023-08-17 08:04] LABS: Albumin Level 3.1 gm/dl (3.4-5.0); BUN Creatinine Ratio 9.8 (10-20); Bilirubin Direct 0.1 mg/dl (0-0.2); Bilirubin,Total 0.3 mg/dl (0.2-1.0); Calcium 8.4 mg/dl (8.6-10.3); Creatinine Clr Calc Pharmacy 51.7 ml/min; Est GFR (African American) 72.1 ml/min; Est GFR (Non-African American) 62.2 ml/min; Magnesium 1.5 mg/dl (1.7-2.4); Phosphorus 2.4 mg/dl (2.5-4.9); Potassium 2.8 mmol/L (3.5-5.1); Total Protein 5.5 gm/dl (6.0-8.3)
[2023-08-17 08:11] LABS: ANTI-Xa, UFH(UnfractionatedHep 0.62 IU/ml (0.3-0.7)
[2023-08-17] MEDS ORDERED: POTASSIUM PHOS 3 MMOL/1 ML INFUSION IV STA (09:43)
[2023-08-17] MEDS ORDERED: POTASSIUM CHLORIDE / WTR 10 MEQ/100 ML PLCT IV SCH (09:45)
--- NOTE | 2023-08-17 09:45 | Hospitalist Progress Note ---
Date of Service August 17, 2023 Assessment & Plan (1) Leukocytosis: (2) Nausea & vomiting: (3) Rheumatoid arthritis: (4) Malignant neoplasm of breast (female): Plan: In short, Ms. Rivas is a 73 yo F with PMHx rheumatoid arthritis no longer on DMARD and right breast carcinoma T1c N0 M0, stage IA who is admitted evaluation of right portacath cellulitis. Patient states it was tender for chemoaccess 08/03, then more so since 08/08 where it continued to ooze. Patient reports feeling in otherwise baseline state of health, no fevers/chills/diarrhea, but notes that the erythema and pain worsened in last 24 hours prior to admission. Patient noted to be febrile, TMAX 38.9 05/27 blood cultures positive GPC US with thrombus. #Probable sepsis 2/2 GPC bacteremia POA #Cellulitis #Portacath, POA leukocytosis, tachycardia, source of infection -2/2 frail stature, IVF hydration achieved via maintenance fluids overnight Blood culture PCR: MSSA discontinue vanc/cefepime -continue Cefazolin -ID consult for line associated infection Repeat blood culture pending Wound care for superficial skin treatment, Consult Gen Surgery for infected portacath/thrombus; Vascular not in house until 08/18 ECHO prending #Right breast cancer, ER and [place] positive, HER2 Jeb positive #Chemo dermatitis Planned for 6 cycles of TCH P and then she will have surgical intervention Pt has chemo rash on her skin from such, non pruritic. Reports appetite is not like it used to be. Prescribed Compazine, Zofran for the symptomatic treatment nausea and vomiting Took Decadron as part of pre-chemotherapy ( e-prescribed) -Neck CTA has been completed : A right internal jugular central venous infusion port is in place. There may be thrombus around the catheter. This is difficult to assess due to streak artifact from the contrast bolus. Consider ultrasound for further evaluation. The internal jugular veins are otherwise patent bilaterally. There is inflammation and edema of the right supraclavicular and upper chest wall soft tissues around the infusion port catheter suggesting cellulitis. Correlate clinically. No fluid collection is seen to indicate abscess. US doppler: There is thrombosis of the inferior aspect of the right internal jugular vein which is nonocclusive and appears to be associated with the Port-A-Cath catheter. This could be either acute or chronic. -Continue IV compazine prn gentle IVF 2/2 poor po #Portacath Thrombus -Consult placed to gen surg -Heparin drip, plan to transition to oral agent once final plan regarding port Hgb stable, trend cbc #Hypokalemia #Hypomagnesemia -Replace as needed, trend with a.m. labs #Leukocytosis *improving #Immunocompromised -received pegfilgrastim s/p treatment s/p 08/03 treatment; however, notable for bacteremia -Trend CBC, treat infection as above #Rheumatoid arthritis Previously on methotrexate and Orencia, but discontinued iso chemotherapy stable at this time DVT ppx: heparin drip Lines: Mediport, PIV x 1 FEN/GI: Regular diet CODE: Full code Pending ECHO results, ID recommendations and Gen Surg eval Admission and Anticipated Discharge Date Admission Date: August 15, 2023 Subjective TMAX 38.1 but notably 36.9 on exam Reports feeling overall subjectively improved States the chemo dermatitis is improving with steroid cream adminsitered yesterday, but reports some of the areas oozing over cath site. She reports continued bleeding from portacath site Denies further nausea, chill, vomiting Physical Exam Constitutional: WD/WN, vitals as above Respiratory: normal respiratory effort, lungs clear to auscultation Cardiovascular: RRR, no murmur, no edema Skin: scattered lesions on face resolving, much improved since day prior portacath with gauze with serosanginous discharge seeping through, localized erythema improved Results & Data Results & Data Vital Signs (Past 12 Hours) Vital Signs Temp Pulse Pulse Resp BP Pulse Ox O2 Del Method 08/17/23 08:11 Room Air 08/17/23 07:45 36.9 C 88 18 123/70 93 Room Air 08/17/23 03:28 37.7 C H 104 H 18 135/76 94 Room Air 08/16/23 23:37 99 H 08/16/23 23:07 37.5 C 101 H 18 123/71 93 Room Air 08/16/23 21:48 Room Air Laboratory Results Short CBC 08/17/23 Range/Units 05:58 WBC 13.86 H (4.8-10.8) K/ul Hgb 10.4 L (12.0-16.0) g/dl Hct 30.7 L (37.0-47.0) % Plt Count 103 L (130-400) K/uL BMP 08/17/23 05:58 Sodium 134 L Potassium 2.8 L Chloride 98 Carbon Dioxide 29 BUN 9 Creatinine 0.92 Glucose 109 H Calcium 8.4 L Liver Function 08/17/23 Range/Units 05:58 Total Bilirubin 0.3 (0.2-1.0) mg/dl Direct Bilirubin 0.1 (0-0.2) mg/dl AST 25 (13-39) U/L ALT 23 (7-52) U/L Alkaline Phosphatase 102 (34-104) U/L Albumin 3.1 L (3.4-5.0) gm/dl Medications Administered Home Medications Medication Instructions Recorded Confirmed Last Taken Chemo Treatment 1 dose miscellaneous UD 07/21/23 08/15/23 07/13/23 calcium carbonate (Calcium 600) 600 mg PO BID 07/21/23 08/15/23 08/15/23 dexamethasone 4 mg tablet 4 mg PO UD 07/21/23 08/15/23 Unknown folic acid 1 mg tablet 1 mg PO DAILY 07/21/23 08/15/23 Unknown ondansetron HCl 8 mg tablet 8 mg PO DIRECTED PRN n/v 07/21/23 08/15/23 Unknown prochlorperazine maleate 10 mg 10 mg PO Q6H PRN n/v 07/21/23 08/15/23 Unknown tablet diphenoxylate-atropine 2.5 1 tab PO QID PRN Diarrhea 08/15/23 08/15/23 Unknown mg-0.025 mg tablet Active Medications Generic Name Dose Route Start Last Admin Trade Name Freq PRN Reason Stop Dose Admin Acetaminophen 650 mg 08/15/23 16:31 08/17/23 03:34 Acetaminophen 325 Mg Tab PO 09/14/23 16:30 650 mg Q4H PRN Administration Moderate Pain (Scale 4, 5, 6) Calcium Carbonate 1 tab 08/15/23 21:00 08/17/23 08:50 Calcium Carbonate 1250mg Tab PO 09/14/23 20:59 1 tab BID DANIEL Administration Folic Acid 1 mg 08/16/23 09:00 08/17/23 08:50 Folic Acid 1 Mg Tab PO 09/15/23 08:59 1 mg DAILY DANIEL Administration Heparin Sodium/Dextrose 25,000 units in 500 mls @ 21 mls/hr 08/15/23 18:00 08/17/23 01:32 Heparin Sodium/Dextrose IV 09/14/23 17:59 1,050 units/hr .[id number] DANIEL 21 mls/hr Administration Protocol 1,050 UNITS/HR Cefazolin Sodium 2,000 mg in 15 mls @ 3.75 mls/min 08/16/23 12:00 08/17/23 03:36 Ancef 2000mg IV 08/30/23 11:59 3.75 mls/min Q8H DANIEL Administration Lactated Ringer's 1,000 mls @ 80 mls/hr 08/16/23 16:30 08/17/23 05:21 Lr IV 09/15/23 16:29 80 mls/hr .[id number] DANIEL Administration Mupirocin 1 appln 08/16/23 10:45 08/17/23 08:50 Mupirocin 2% Oint 22 Gm Tube EXT 09/15/23 10:44 Not Given BID DANIEL Ondansetron HCl 4 mg 08/15/23 16:31 08/17/23 03:44 Ondansetron Inj 2 Mg/Ml 2 Ml Vial IV 09/14/23 16:30 4 mg Q4H PRN Administration Nausea And Vomiting Ondansetron HCl 8 mg 08/15/23 17:01 08/16/23 16:11 Ondansetron 8mg Od Tab PO 09/14/23 16:30 8 mg Q6H PRN Administration NAUSEA/VOMITING Triamcinolone Acetonide 1 appln 08/16/23 12:26 08/16/23 15:23 Triamcinolone Acet 0.025% Oint 15 Gm Tube EXT 09/15/23 12:25 1 appln BID PRN Administration dermatitis
[2023-08-17] MEDS: POTASSIUM CHLORIDE PWD 20 MEQ PACK PO SCH (10:21)
[2023-08-17] MEDS: MAGNESIUM SULFATE / D5W 1 GM/100 ML BAG IV SCH (10:21)
[2023-08-17] MEDS: POTASSIUM PHOSPHATE 21 MMOL in SODIUM CHLORIDE 0.9% 500 ML IV ONE (10:21)
--- NOTE | 2023-08-17 11:05 | Surgery Consultation ---
Date of Consultation August 17, 2023 Assessment & Plan (1) Vascular port complication: Patient is a pleasant 73 yo female redness and swelling at her aport site that was placed 2 months ago in [place] for chemotherapy and has been accessed twice. She said the time it was accessed last week she had some bleeding from the site. A VDS is reading a thrombosis in the inferior aspect of the right IJ which is nonocclusive. She is currently on IV antibiotics and a heparin gtt. On exam she has two open areas over port , implant is not visualized with erythema and cellulitis on surrounding tissue. Infectious disease was consulted Patient is scheduled for Aport removal tomorrow with Dr. Seth at 1045. Hold Heparin gtt four hours prior to OR (0645am) NPO MN Continue IV antibiotics per hospitalist/ ID recs. Supervising Physician Co-Signing Physician Notes I personally saw and evaluated the patient with Adin PLUNKETT and agree with the assessment and plan. 73 yo female with infected port a cath with possible abscess/hematoma Hold heparin gtt 6 hours prior to procedure NPO after MN Will plan on port removal tomorrow Consent was obtained, risks discussed including bleeding, infection, catheter fracture I did discuss with her that if there is abscess/infected hematoma I may leave skin open to drain the area History of Present Illness Reason for Consultation: Infected Aport Attending Physician: Nisha Vinson MD History of Present Illness Patient is a pleasant 73 yo female with PMH Breast CA, elevated troponin, leukocytosis, that presented to the [facility] 08/15/23 with c/o pain , redness and swelling at her aport site. She reports that the port was placed 2 months ago in [place] for chemotherapy and has been accessed twice. She said the time it was accessed last week she had some bleeding from the site. Allergies Allergy/AdvReac Type Severity Reaction Status Date / Time No Known Allergies Allergy Unverified 07/21/23 09:01 Home Medications Medication Instructions Recorded Confirmed Type Chemo Treatment 1 dose miscellaneous UD 07/21/23 08/15/23 History calcium carbonate (Calcium 600) 600 mg PO BID 07/21/23 08/15/23 History dexamethasone 4 mg tablet 4 mg PO UD 07/21/23 08/15/23 History folic acid 1 mg tablet 1 mg PO DAILY 07/21/23 08/15/23 History ondansetron HCl 8 mg tablet 8 mg PO DIRECTED PRN n/v 07/21/23 08/15/23 History prochlorperazine maleate 10 mg 10 mg PO Q6H PRN n/v 07/21/23 08/15/23 History tablet diphenoxylate-atropine 2.5 1 tab PO QID PRN Diarrhea 08/15/23 08/15/23 History mg-0.025 mg tablet Patient History Medical History Rheumatoid arthritis Osteoarthrosis Malignant neoplasm of breast (female) Surgical History S/P cholecystectomy History of insertion of tunneled central venous catheter (CVC) with port Family History Other Cancer Coronary heart disease Heart disease Hypertension Social History Smoking Status: Never smoker Hx Alcohol Use: No Hx Substance Use: No Preferred Language: Upper Sorbian Communication Ability: 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 Above port site right upper chest/neck hematoma Physical Exam Physical Exam: alert oriented Constitutional: cooperative and comfortable; no acute distress Chest (Breasts): Chest: + vascular access device or port Additional Comments: access port right chest, erythema, cellulitis Results & Data Vital Signs (Past 12 Hours) Vital Signs Temp Pulse Pulse Resp BP Pulse Ox O2 Del Method 08/17/23 08:11 Room Air 08/17/23 07:45 98.4 F 88 18 123/70 93 Room Air 08/17/23 03:28 99.9 F H 104 H 18 135/76 94 Room Air 08/16/23 23:37 99 H 08/16/23 23:07 99.5 F 101 H 18 123/71 93 Room Air Diagnostic Findings [facility], [place] [phone] Ultrasound Report Patient: DANIEL GILBERT Admit Date: 08/15/23 MR#: [id number] Address1: [address] Acct ID:[id number] Address2: Date: 1950 [facility] Zip: [place] [id number] Age: 73 Location: 2W Sex: F Room/Bed: [facility] Att Phy: Nisha Vinson MD Diagnosis: MEDIPORT DYSFUNCTION, HYPOKALEMIA, HYPOMAGNESEMIA Elena Phy: Charlene York CRNP Service Date: 08/15/23 [facility] Phy: Interpreting Phy: Jorge Alberto Leroy MDAdmit Phy: Nisha Vinson MD Ordering Phy: Wei Pearson MD cc: ~ Exam(s): US VENOUS RIGHT UPPER EXTREMITY EXAM: US Duplex Right Upper Extremity Veins CLINICAL HISTORY: Reason for exam: possible thrombus in rt internal jugular vein. TECHNIQUE: Real-time duplex ultrasound scan of the right upper extremity veins integrating B-mode two-dimensional vascular structure, Doppler spectral analysis, color flow Doppler imaging and compression. COMPARISON: CT angiogram of the neck from August 16, 2023 FINDINGS: Deep veins: Unremarkable. No DVT in the internal jugular, subclavian, axillary, or brachial veins. The veins demonstrate normal color flow, are normally compressible, with normal phasic flow and/or augmentation response. Superficial veins: There is thrombosis of the right antecubital vein which appears to be associated with an IV. Soft tissues: No acute findings. Tubes, lines and devices: There is thrombosis of the inferior aspect of the right internal jugular vein which is nonocclusive and appears to be associated with the Port-A-Cath catheter. IMPRESSION: 1. There is thrombosis of the right antecubital vein which appears to be associated with an IV. This is consistent with superficial thrombophlebitis. 2. There is thrombosis of the inferior aspect of the right internal jugular vein which is nonocclusive and appears to be associated with the Port-A-Cath catheter. This could be either acute or chronic. Electronically signed by: Jorge Alberto Leroy MD 08/16/23 00:54 AM Dictated: 08/16/2353 Transcribed: 08/16/2353 PG Care Time/CCT Total # of Minutes Spent Total Time Spent with Patient: Total time spent is greater than 50% in coordination of care (as documented) at patient's floor/unit and/or counseling patient: Coding Level of Care Code 71736 INT INP/OBS CARE MIN Diagnoses Vascular port complication T82.9XXA
[2023-08-17 11:17] LABS: A calco-baum cmplx NotReported Not Detected (NotDetected); Bact fragilis Not Reported Not Detected (NotDetected); Blood Culture Id Panel See PCR Comment (NotDetected); C auris Not Reported Not Detected (NotDetected); Calbicans Not Reported Not Detected (NotDetected); Candida glabrata Not Reported Not Detected (NotDetected); Candida krusei Not Reported Not Detected (NotDetected); Cneoformans/gatti Not Reported Not Detected (NotDetected); Cparapsilosis Not Reported Not Detected (NotDetected); E cloacae compx Not Reported Not Detected (NotDetected); Efaecalis Not Reported Not Detected (NotDetected); Efaecium Not Reported Not Detected (NotDetected); Enterobacterales Not Reported Not Detected (NotDetected); Escherichia coli Not Reported Not Detected (NotDetected); H influenzae Not Reported Not Detected (NotDetected); K aerogenes Not Reported Not Detected (NotDetected); Koxytoca Not Reported Not Detected (NotDetected); Kpneumoniae grp Not Reported Not Detected (NotDetected); Lmonocyt Not Reported Not Detected (NotDetected); N meningitidis Not Reported Not Detected (NotDetected); P aeruginosa Not Reported Not Detected (NotDetected); Proteus spp Not Reported Not Detected (NotDetected); Salmonella spp Not Reported Not Detected (NotDetected); Smarcescens Not Reported Not Detected (NotDetected); Staph lugdunensis Not Reported Not Detected (NotDetected); Staph spp. Not Reported DETECTED (NotDetected); Staphaureus Not Reported DETECTED (NotDetected); Staphepi Not Reported Not Detected (NotDetected); Stenmaltophilia Not Reported Not Detected (NotDetected); Strep agal(GrpB) Not Reported Not Detected (NotDetected); Strep pneum Not Reported Not Detected (NotDetected); Strep pyog (GrpA) Not Reported Not Detected (NotDetected); Strep spp Not Reported Not Detected (NotDetected); mecAC+MREJ Resistant Gene MRSA Not Detected (NotDetected)
[2023-08-17 11:25] LABS: Staphylococcus spp. DETECTED (NotDetected)
--- NOTE | 2023-08-17 14:01 | Infectious Disease Consult ---
Date of Service August 17, 2023 Telehealth Information I performed this visit using a real-time telehealth connection between my location and the patients location ([facility]). After connecting through interactive tele-video, patient was identified by name and date of and/or wristband check.Patient (or authorized healthcare agricultural sales representative) was informed that this was a telemedicine visit and it was being conducted confidentially over secure lines. My office door was closed and no one else was present in the room with me.Patient (or authorized healthcare agricultural sales representative) provided consent to proceed with the visit, expressed an understanding of privacy and security of the telemedicine visit, and gave permission to have a hospital agricultural sales representative in the room in order to assist with the visit and to conduct portions of the visit, as needed. I informed the patient (or authorized healthcare agricultural sales representative) that I reviewed their record and presented the opportunity for them to ask any questions regarding the visit today. The patient agreed to participate. Assessment & Plan (1) Bacteremia associated with intravascular line: Plan: Patient with high-grade MSSA bacteremia from infected port. She needs device removal as soon as feasible. Imaging suggest a thrombus associated with device and thus even if her TTE is negative, she likely has septic thrombophlebitis. Plan 1. Device removal as soon as feasible 2. Agree with continuing IV cefazolin at 2g q 8 3. Once device removed, then repeat blood cultures to document clearance 4. If cultures after device removal still positive, then she will need JAIME 5. Based on a presumed infected thrombus, 6 weeks of IV cefazolin may be indicated. Final abx plans remain pending. History of Present Illness History of Present Illness Ms. Love is a 73yo female with a recent diagnosis of breast CA. She had a medi-port placed about 2 months ago and started chemo. This past week after her second round of therapy, she noted worsening N/V, followed by bleeding and then swelling and erythema of her port site. She was seen in the ED at [facility] on 08/15/23 and started empirically on vancomycin and cefepime. Her blood cultures subsequently turned positive for MSSA and her therapy was narrowed to cefazolin. Surgery has evaluated her and plans removal of the cath tomorrow AM. She reports already feeling better, though still has some pain at the cath site. is at the bedside and helps provide some of the history. Allergies Allergy/AdvReac Type Severity Reaction Status Date / Time No Known Allergies Allergy Unverified 07/21/23 09:01 Home Medications Medication Instructions Recorded Confirmed Type Chemo Treatment 1 dose miscellaneous UD 07/21/23 08/15/23 History calcium carbonate (Calcium 600) 600 mg PO BID 07/21/23 08/15/23 History dexamethasone 4 mg tablet 4 mg PO UD 07/21/23 08/15/23 History folic acid 1 mg tablet 1 mg PO DAILY 07/21/23 08/15/23 History ondansetron HCl 8 mg tablet 8 mg PO DIRECTED PRN n/v 07/21/23 08/15/23 History prochlorperazine maleate 10 mg 10 mg PO Q6H PRN n/v 07/21/23 08/15/23 History tablet diphenoxylate-atropine 2.5 1 tab PO QID PRN Diarrhea 08/15/23 08/15/23 History mg-0.025 mg tablet Patient History Medical History Rheumatoid arthritis Osteoarthrosis Malignant neoplasm of breast (female) Surgical History S/P cholecystectomy History of insertion of tunneled central venous catheter (CVC) with port Family History Other Cancer Coronary heart disease Heart disease Hypertension Social History Smoking Status: Never smoker Hx Alcohol Use: No Hx Substance Use: No Preferred Language: French Communication Ability: Effective Marker Machine Required: No Beliefs That Will Affect Care: None Current Living Situation: Spouse Feels Safe at Home: Yes Assistive Devices: None Review of Systems Gen- tired, fevers HEENt- No EUGENE, sore throat CV- Pain around chest where cath is Resp- No SOB or cough GI- + n/V on admission, improved now. Has had two loose stools today so far. - No dysuria Derm- Some rash "from chemo" now resolved MSK- No joint pains Neuro - No focal deficit Physical Exam Gen- NAD, cooperative with exam HEENT- NC AT Chest- Cath in place with wall erythema Resp- Normal rate on room air MSK- No joint swelling Neuro- Alert and oriented Results & Data Vital Signs (Past 12 Hours) Vital Signs Temp Pulse Resp BP Pulse Ox O2 Del Method 08/17/23 11:44 36.6 C 96 H 20 129/76 95 Room Air 08/17/23 08:11 Room Air 08/17/23 07:45 36.9 C 88 18 123/70 93 Room Air 08/17/23 03:28 37.7 C H 104 H 18 135/76 94 Room Air Laboratory Results WBC 21 -> 13.86 Hgb 10.4 Platelets 103 UA with 0-5 WBC, 0-2 RBC Creatinine 0.92 BUN 9 Diagnostic Findings Doppler of neck + thrombus of IJ Chest CTA negative TTE negative Blood cultures 08/15/23 MSSA 4 of 4 bottles Blood cultures 08/16/23 GPC 1 of 4 bottles
[2023-08-17] MEDS: OLANZapine ZYDIS 5 MG ORALLY DIS. TAB PO PRN (15:48)
[2023-08-17 16:34] LABS: BUN Creatinine Ratio 8.1 (10-20); Calcium 8.1 mg/dl (8.6-10.3); Creatinine Clr Calc Pharmacy 48.1 ml/min; Est GFR (Non-African American) 56.9 ml/min; Potassium 3.5 mmol/L (3.5-5.1)
[2023-08-17 17:36] LABS: Cdiff Toxin B Gene (2yr or >) Positive Cdiff Gene (Neg)
[2023-08-17 18:11] LABS: Cdiff Antigen Positive
[2023-08-17 18:13] LABS: Cdiff Toxin A+B Positive Cdiff Toxin (Negative)
[2023-08-17] MEDS: FIDAXOMICIN 200 MG TAB PO ONE (20:18)
[2023-08-18] MEDS: HOLD ORDER ONE (04:41)
[2023-08-18] MEDS: FIDAXOMICIN 200 MG TAB PO SCH (06:28)
[2023-08-18] MEDS ORDERED: HOLD ORDER ONE (06:45)
[2023-08-18 06:58] LABS: BUN Creatinine Ratio 7.2 (10-20); Calcium 7.9 mg/dl (8.6-10.3); Creatinine Clr Calc Pharmacy 57.4 ml/min; Est GFR (African American) 81.7 ml/min; Est GFR (Non-African American) 70.4 ml/min; Magnesium 1.6 mg/dl (1.7-2.4); Potassium 2.8 mmol/L (3.5-5.1)
[2023-08-18] MEDS ORDERED: SODIUM PHOSPHATE 3 MMOL/1 ML INFUSION IV STA (07:38)
[2023-08-18] MEDS: POTASSIUM CHLORIDE / WTR 10 MEQ/100 ML PLCT IV SCH (07:39)
[2023-08-18 07:44] LABS: Hematocrit (blood only) 28.3 % (37.0-47.0); Hemoglobin 9.4 g/dl (12.0-16.0); Mean Corpuscular Hemoglobin 29.3 pg (25.0-34.0); Mean Corpuscular Hgb Conc 33.2 g/dL (32.0-36.0); Mean Corpuscular Volume 88.2 fL (80.0-100.0); Mean Platelet Volume 9.3 fL (9.4-12.4); Platelet Count 107 K/uL (130-400); RDW Coefficient of Variation 14.1 % (11.5-14.5); RDW Standard Deviation 45.1 fL (36.4-46.3); Red Blood Count 3.21 M/uL (4.20-5.40); White Blood Count 10.57 K/ul (4.8-10.8)
--- NOTE | 2023-08-18 09:04 | Surgery Progress Note ---
Date of Service August 18, 2023 Assessment & Plan (1) Bacteremia associated with intravascular line: Plan: Will proceed with port removal today Continue to hold heparin gtt (2) Cellulitis of chest wall: Admission and Anticipated Discharge Date Admission Date: August 15, 2023 Subjective Pt seen and examined. No acute events overnight. Afebrile. Review of Systems Constitutional: no fever and no chills Physical Exam Physical Exam: alert oriented Constitutional: cooperative and comfortable; no acute distress Chest (Breasts): Chest: + vascular access device or port Additional Comments: access port right chest, erythema, cellulitis Results & Data Vital Signs (Past 12 Hours) Vital Signs Temp Pulse Pulse Resp BP BP Pulse Ox 08/18/23 07:44 37.1 C 91 H 18 126/69 92 08/18/23 01:30 37.0 C 96 H 18 135/75 94 08/17/23 23:47 98 H 08/17/23 23:38 08/17/23 22:38 37.5 C 104 H 18 137/71 92 O2 Del Method 08/18/23 07:44 Room Air 08/18/23 01:30 Room Air 08/17/23 23:47 08/17/23 23:38 Room Air 08/17/23 22:38 Room Air PG Care Time/CCT Total # of Minutes Spent Total Time Spent with Patient: Total time spent is greater than 50% in coordination of care (as documented) at patient's floor/unit and/or counseling patient: Coding Level of Care Code 07177 SUB INP/OBS CARE 03/19MIN Diagnoses Bacteremia associated with intravascular line T82.7XXA; R78.81 Cellulitis of chest wall L03.313
--- NOTE | 2023-08-18 09:21 | Hospitalist Progress Note ---
Date of Service August 18, 2023 Assessment & Plan (1) Leukocytosis: (2) Nausea & vomiting: (3) Rheumatoid arthritis: (4) Malignant neoplasm of breast (female): Plan: In short, Ms. Rivas is a 73 yo F with PMHx rheumatoid arthritis no longer on DMARD and right breast carcinoma T1c N0 M0, stage IA who is admitted evaluation of right portacath cellulitis. Patient states it was tender for chemoaccess 08/03, then more so since 08/08 where it continued to ooze. Patient reports feeling in otherwise baseline state of health, no fevers/chills/diarrhea, but notes that the erythema and pain worsened in last 24 hours prior to admission. 4/4 blood cultures positive MSSA on 08/14 and 2/4 on 08/15. US with thrombus. Infectious disease recommendations reviewed: likely septic thrombophlebitis, will plan for 6 weeks IV cefazolin if repeat cultures negative s/p removal of port. #C. Difficile Infection multiple risk factors, upwards to 9 BM yesterday -Contact precautions placed -Fidaxomicin 200mg BID started 08/17 #Probable sepsis 2/2 MSSA bacteremia POA #Cellulitis #Portacath, POA leukocytosis, tachycardia, source of infection -2/2 frail stature, IVF hydration achieved via maintenance fluids overnight Blood culture PCR: MSSA discontinue vanc/cefepime -continue Cefazolin -ID consult for line associated infection -Continue cefazolin q 8 hours TTE with out signs of vegetations -Remove cath today, plan for blood cultures this evening -If repeat with growth, plan for JAIME Repeat blood culture -08/14 4/ positive -08/15 2/4 positive Wound care for superficial skin treatment, Consult Gen Surgery for infected portacath/thrombus -Removal today -Heparin held #Right breast cancer, ER and MT positive, HER2 Jeb positive #Chemo dermatitis Planned for 6 cycles of TCH P and then she will have surgical intervention Pt has chemo rash on her skin from such, non pruritic. Reports appetite is not like it used to be. Prescribed Compazine, Zofran for the symptomatic treatment nausea and vomiting Took Decadron as part of pre-chemotherapy ( e-prescribed) -Neck CTA has been completed : A right internal jugular central venous infusion port is in place. There may be thrombus around the catheter. This is difficult to assess due to streak artifact from the contrast bolus. Consider ultrasound for further evaluation. The internal jugular veins are otherwise patent bilaterally. There is inflammation and edema of the right supraclavicular and upper chest wall soft tissues around the infusion port catheter suggesting cellulitis. Correlate clinically. No fluid collection is seen to indicate abscess. US doppler: There is thrombosis of the inferior aspect of the right internal jugular vein which is nonocclusive and appears to be associated with the Port -A-Cath catheter. This could be either acute or chronic. -Continue IV compazine prn gentle IVF 2/2 poor po -Triamcenolone for chemo dermatitis #Portacath Thrombus -Consult placed to gen surg -Hold Heparin -Port removal today Hgb stable, trend cbc #Hypokalemia #Hypomagnesemia -Replace as needed, trend with a.m. labs Aggressive IV replacement #Leukocytosis *improving #Immunocompromised -received pegfilgrastim s/p treatment s/p 08/03 treatment; however, notable for bacteremia -Trend CBC, treat infection as above #Rheumatoid arthritis Previously on methotrexate and Orencia, but discontinued iso chemotherapy stable at this time DVT ppx: heparin drip Lines: Mediport, PIV x 1 FEN/GI: Regular diet CODE: Full code Pending port removal and final blood cultures/ID recs Admission and Anticipated Discharge Date Admission Date: August 15, 2023 Subjective Patient reports multiple episodes of diarrhea and nausea; noted to be +c diff States olanzipine helps with nausea the most Denies any subjective fevers, chest pain, or palpitations Reports feeling tired, but otherwise no concerns with planned port removal Physical Exam Constitutional: WD/WN, vitals as above Respiratory: normal respiratory effort, lungs clear to auscultation Cardiovascular: RRR, no murmur, no edema Gastrointestinal (Abdomen): discomfort to palpation, described as cramping in LLQ Skin: near resolution of erythema and swelling overlying cath site Results & Data Results & Data Vital Signs (Past 12 Hours) Vital Signs Temp Pulse Pulse Resp BP BP Pulse Ox 08/18/23 07:44 37.1 C 91 H 18 126/69 92 08/18/23 01:30 37.0 C 96 H 18 135/75 94 08/17/23 23:47 98 H 08/17/23 23:38 08/17/23 22:38 37.5 C 104 H 18 137/71 92 O2 Del Method 08/18/23 07:44 Room Air 08/18/23 01:30 Room Air 08/17/23 23:47 08/17/23 23:38 Room Air 08/17/23 22:38 Room Air Laboratory Results Short CBC 08/18/23 Range/Units 05:58 WBC 10.57 (4.8-10.8) K/ul Hgb 9.4 L (12.0-16.0) g/dl Hct 28.3 L (37.0-47.0) % Plt Count 107 L (130-400) K/uL BMP 08/17/23 08/18/23 15:26 05:58 Sodium 134 L 134 L Potassium 3.5 D 2.8 L Chloride 97 L 99 Carbon Dioxide 30 27 BUN 8 6 Creatinine 0.99 0.83 Glucose 102 H 100 H Calcium 8.1 L 7.9 L Medications Administered Home Medications Medication Instructions Recorded Confirmed Last Taken Chemo Treatment 1 dose miscellaneous UD 07/21/23 08/15/23 07/13/23 calcium carbonate (Calcium 600) 600 mg PO BID 07/21/23 08/15/23 08/15/23 dexamethasone 4 mg tablet 4 mg PO UD 07/21/23 08/15/23 Unknown folic acid 1 mg tablet 1 mg PO DAILY 07/21/23 08/15/23 Unknown ondansetron HCl 8 mg tablet 8 mg PO DIRECTED PRN n/v 07/21/23 08/15/23 Un known prochlorperazine maleate 10 mg 10 mg PO Q6H PRN n/v 07/21/23 08/15/23 Unknown tablet diphenoxylate-atropine 2.5 1 tab PO QID PRN Diarrhea 08/15/23 08/15/23 Unknown mg-0.025 mg tablet Active Medications Generic Name Dose Route Start Last Admin Trade Name Freq PRN Reason Stop Dose Admin Acetaminophen 650 mg 08/15/23 16:31 08/17/23 03:34 Acetaminophen 325 Mg Tab PO 09/14/23 16:30 650 mg Q4H PRN Administration Moderate Pain (Scale 4, 5, 6) Calcium Carbonate 1 tab 08/15/23 21:00 08/18/23 08:36 Calcium Carbonate 1250mg Tab PO 09/14/23 20:59 1 tab BID DANIEL Administration Fidaxomicin 200 mg 08/18/23 07:00 08/18/23 06:28 Fidaxomicin 200 Mg Tab PO 08/28/23 06:59 200 mg Q12H DANIEL Administration Folic Acid 1 mg 08/16/23 09:00 08/18/23 08:36 Folic Acid 1 Mg Tab PO 09/15/23 08:59 1 mg DAILY DANIEL Administration Heparin Sodium/Dextrose 25,000 units in 500 mls @ 0 mls/hr 08/15/23 18:00 08/18/23 04:41 Heparin Sodium/Dextrose IV 09/14/23 17:59 0 units/hr .Q0M DANIEL 0 mls/hr Titration Protocol 0 UNITS/HR Cefazolin Sodium 2,000 mg in 15 mls @ 3.75 mls/min 08/16/23 12:00 08/18/23 04:40 Ancef 2000mg IV 08/30/23 11:59 3.75 mls/min Q8H DANIEL Administration Lactated Ringer's 1,000 mls @ 80 mls/hr 08/16/23 16:30 08/18/23 06:10 Lr IV 09/15/23 16:29 80 mls/hr .[id number] DANIEL Administration Potassium Chloride 10 meq in 100 mls @ 100 mls/hr 08/18/23 07:30 08/18/23 08:36 K Dionicio / Wtr IV 08/18/23 11:29 100 mls/hr Q1H DANIEL Administration Mupirocin 1 appln 08/16/23 10:45 08/18/23 08:36 Mupirocin 2% Oint 22 Gm Tube EXT 09/15/23 10:44 Not Given BID DANIEL Olanzapine 2.5 mg 08/17/23 15:12 08/17/23 15:48 Olanzapine Zydis 5 Mg Orally Dis. Tab PO 09/16/23 15:11 2.5 mg Q12H PRN Administration nausea Ondansetron HCl 4 mg 08/15/23 16:31 08/17/23 22:52 Ondansetron Inj 2 Mg/Ml 2 Ml Vial IV 09/14/23 16:30 4 mg Q4H PRN Administration Nausea And Vomiting Ondansetron HCl 8 mg 08/15/23 17:01 06/23/24 16:11 Ondansetron 8mg Od Tab PO 09/14/23 16:30 8 mg Q6H PRN Administration NAUSEA/VOMITING Potassium Chloride 40 meq 08/17/23 09:45 08/17/23 10:21 Potassium Chloride Pwd 20 Meq Pack PO 09/16/23 09:44 40 meq QAM DANIEL Administration Triamcinolone Acetonide 1 appln 08/16/23 12:26 08/18/23 08:37 Triamcinolone Acet 0.025% Oint 15 Gm Tube EXT 09/15/23 12:25 1 appln BID PRN Administration dermatitis
[2023-08-18] MEDS: SODIUM PHOSPHATE 24 MMOL in SODIUM CHLORIDE 0.9% 500 ML IV ONE (09:38)
[2023-08-18] MEDS ORDERED: PROPOFOL IV EMULSION 10 MG/ML 20 ML VIAL IV ONE (09:39)
[2023-08-18] MEDS ORDERED: fentaNYL citrate PF 100 MCG/2 ML VIAL ONE (09:39)
[2023-08-18] MEDS ORDERED: LIDOCAINE 2% 2 ML VIAL/AMP(20MG/ML) INFIL ONE (09:39)
[2023-08-18] MEDS ORDERED: MIDAZOLAM HCL 1 MG/ML 2ML VIAL ONE (09:39)
[2023-08-18] MEDS: LACTATED RINGER'S 1,000 ML IV SCH (10:04)
[2023-08-18] MEDS ORDERED: ATROPINE SULFATE 0.1 MG/ML 10ML SYR IV PRN (10:17)
[2023-08-18] MEDS ORDERED: fentaNYL citrate PF 100 MCG/2 ML VIAL IV PRN (10:17)
[2023-08-18] MEDS ORDERED: ONDANSETRON INJ 2 MG/ML 2 ML VIAL IV PRN (10:17)
[2023-08-18] MEDS ORDERED: ePHEDrine sulfate 50 MG/ML AMP IV PRN (10:17)
--- NOTE | 2023-08-18 10:17 | Anesthesiology Consultation ---
Date of Service August 18, 2023 Assessment & Plan Chart Review Chart Review: Acceptable Risk for Surgery and Patient NOT seen in Pre Admission Testing Consults Requested none ASA ASA3 Proposed Anesthesia Anesthesia Type: MAC (light sedation only. if needs deeper sedation will RSI with ETT.) Risk / Benefits Reviewed With: PT / POA / Parent / Guardian, Accepts Plan and Informed Consent Obtained History Surgery Operation Date: 08/18/23 10:45 Proposed Procedures p Aport Removal - Andriy Seth DO Height/Weight Height: 5 ft 6 in Weight: 61.235 kg Allergies Allergy/AdvReac Type Severity Reaction Status Date / Time No Known Allergies Allergy Unverified 07/21/23 09:01 Medications Home Medications Medication Instructions Recorded Confirmed Last Taken Chemo Treatment 1 dose miscellaneous UD 07/21/23 08/15/23 07/13/23 calcium carbonate (Calcium 600) 600 mg PO BID 07/21/23 08/15/23 08/15/23 dexamethasone 4 mg tablet 4 mg PO UD 07/21/23 08/15/23 Unknown folic acid 1 mg tablet 1 mg PO DAILY 07/21/23 08/15/23 Unknown ondansetron HCl 8 mg tablet 8 mg PO DIRECTED PRN n/v 07/21/23 08/15/23 Unknown prochlorperazine maleate 10 mg 10 mg PO Q6H PRN n/v 07/21/23 08/15/23 Unknown tablet diphenoxylate-atropine 2.5 1 tab PO QID PRN Diarrhea 08/15/23 08/15/23 Unknown mg-0.025 mg tablet Active Medications Generic Name Dose Route Start Last Admin Trade Name Freq PRN Reason Stop Dose Admin Acetaminophen 650 mg 08/15/23 16:31 08/17/23 03:34 Acetaminophen 325 Mg Tab PO 09/14/23 16:30 650 mg Q4H PRN Administration Moderate Pain (Scale 4, 5, 6) Calcium Carbonate 1 tab 08/15/23 21:00 08/18/23 08:36 Calcium Carbonate 1250mg Tab PO 09/14/23 20:59 1 tab BID DANIEL Administration Fidaxomicin 200 mg 08/18/23 07:00 08/18/23 06:28 Fidaxomicin 200 Mg Tab PO 08/28/23 06:59 200 mg Q12H DANIEL Administration Folic Acid 1 mg 08/16/23 09:00 08/18/23 08:36 Folic Acid 1 Mg Tab PO 09/15/23 08:59 1 mg DAILY DANIEL Administration Heparin Sodium/Dextrose 25,000 units in 500 mls @ 0 mls/hr 08/15/23 18:00 08/18/23 04:41 Heparin Sodium/Dextrose IV 09/14/23 17:59 0 units/hr .Q0M DANIEL 0 mls/hr Titration Protocol 0 UNITS/HR Cefazolin Sodium 2,000 mg in 15 mls @ 3.75 mls/min 08/16/23 12:00 08/18/23 04:40 Ancef 2000mg IV 08/30/23 11:59 3.75 mls/min Q8H DANIEL Administration Lactated Ringer's 1,000 mls @ 80 mls/hr 08/16/23 16:30 08/18/23 06:10 Lr IV 09/15/23 16:29 80 mls/hr .[id number] DANIEL Administration Potassium Chloride 10 meq in 100 mls @ 100 mls/hr 08/18/23 07:30 08/18/23 10:06 K Dionicio / Wtr IV 08/18/23 11:29 100 mls/hr Q1H DANIEL Administration Sodium Phosphate 24 mmol/ 508 mls @ 88 mls/hr 08/18/23 07:45 08/18/23 09:38 Sodium Chloride IV 08/18/23 13:31 88 mls/hr ONE ONE Administration Lactated Ringer's 1,000 mls @ 15 mls/hr 08/18/23 09:30 08/18/23 10:04 Lr IV 09/17/23 09:29 15 mls/hr .Q24H DANIEL Administration Mupirocin 1 appln 08/16/23 10:45 08/18/23 08:36 Mupirocin 2% Oint 22 Gm Tube EXT 09/15/23 10:44 Not Given BID DANIEL Olanzapine 2.5 mg 08/17/23 15:12 08/17/23 15:48 Olanzapine Zydis 5 Mg Orally Dis. Tab PO 09/16/23 15:11 2.5 mg Q12H PRN Administration nausea Ondansetron HCl 4 mg 08/15/23 16:31 08/17/23 22:52 Ondansetron Inj 2 Mg/Ml 2 Ml Vial IV 09/14/23 16:30 4 mg Q4H PRN Administration Nausea And Vomiting Ondansetron HCl 8 mg 08/15/23 17:01 08/16/23 16:11 Ondansetron 8mg Od Tab PO 09/14/23 16:30 8 mg Q6H PRN Administration NAUSEA/VOMITING Potassium Chloride 40 meq 08/17/23 09:45 08/18/23 09:20 Potassium Chloride Pwd 20 Meq Pack PO 09/16/23 09:44 Not Given QAM DANIEL Triamcinolone Acetonide 1 appln 08/16/23 12:26 08/18/23 08:37 Triamcinolone Acet 0.025% Oint 15 Gm Tube EXT 09/15/23 12:25 1 appln BID PRN Administration dermatitis Past Medical History Medical History Rheumatoid arthritis Osteoarthrosis Malignant neoplasm of breast (female) Exercise / Class Metabolic Activity II 4-5 Yardwork/Stairs/Walk up hill Past Family History Family History Other Cancer Coronary heart disease Heart disease Hypertension Past Surgical History Surgical History S/P cholecystectomy History of insertion of tunneled central venous catheter (CVC) with port Past Anesthesia History No Hx of Anesthesia Complications and No Family Hx of Anesthesia Complications History of PONV No Hx of PONV and No Hx of Motion Sickness Social History Smoking Status: Never smoker Hx Alcohol Use: No Hx Substance Use: No Physical Exam Vital Signs Last Vital Signs Temp 37.1 C 08/18/23 07:44 Pulse 91 H 08/18/23 07:44 Resp 18 08/18/23 07:44 BP 126/69 08/18/23 07:44 Pulse Ox 92 08/18/23 07:44 O2 Del Method Room Air 08/18/23 07:44 ENMT Mouth: no dentition abnormality Thyromental Distance: > or= 3.5 Finger Breadths Mallampati Class: II Neck normal visual inspection Respiratory normal respiratory effort Auscultation: lungs clear to auscultation bilaterally Cardiovascular Rate/Rhythm: regular rate and regular rhythm Psychiatric Orientation: alert Testing Laboratory Results 08/18/23 05:58 08/18/23 05:58 PT 11.1 Seconds (9.0-12.0) 08/16/23 01:27 INR 1.0 (0.9-1.1) 08/16/23 01:27 APTT 33 Seconds (21-31) H 08/16/23 01:27 08/16/23 08:23 Aerobic Blood Culture - Preliminary Blood Gram positive cocci clusters Anaerobic Blood Culture - Preliminary No growth in Anaerobic bottle after 48 hours. 08/16/23 08:33 Aerobic Blood Culture - Preliminary Blood Gram positive cocci clusters Anaerobic Blood Culture - Preliminary No growth in Anaerobic bottle after 48 hours. 08/15/23 10:54 Aerobic Blood Culture - Preliminary Blood Staphylococcus aureus Anaerobic Blood Culture - Preliminary Staphylococcus aureus 08/15/23 10:20 Aerobic Blood Culture - Preliminary Blood Staphylococcus aureus Anaerobic Blood Culture - Preliminary Staphylococcus aureus
--- NOTE | 2023-08-18 11:01 | Post Operative Brief Note ---
PG Immediate Post Op with CF Date of Surgery August 18, 2023 Pre & Post Diagnosis Pre-op diagnosis: Infected port Post-op diagnosis: Infected port with infected hematoma I identified the patient and participated in the time-out.: Yes Procedure Operation Date: 08/18/23 10:45 Removal of access port Surgeon Andriy Seth DO [place] Adin PLUNKETT Estimated Blood Loss 5 Findings See Below Infected hematoma Intact catheter-mediport complex upon removal Anesthesia Type MAC Complications none Disposition Disposition: Recovery Room
--- NOTE | 2023-08-18 11:05 | Operative Report ---
PG Post Operative Report Pre & Post Diagnosis Preop diagnosis: Infected port Postop diagnosis: Infected port with infected hematoma I identified the patient and participated in the time-out.: Yes Procedure Operation Date: 08/18/23 10:45 Removal of access port Surgeon Andriy Seth DO Treatment Coordinator Adin PLUNKETT Estimated Blood Loss 5 Findings See Below Infected port with surrounding hematoma Intact catheter-mediport complex upon removal Specimens Mediport and catheter for culture Drains None Anesthesia Type MAC Complications none Disposition Disposition: Recovery Room Indications 73 yo female with infected port a -cath Description of Procedure The patient was brought to the OR and placed in the supine position. At this time she underwent MAC anesthesia without problem. Her right chest was prepped and draped in the usual sterile fashion. She was given appropriate pre- operative antibiotics. Timeout was called, procedure was verified as Mediport removal. Surgical, anesthesia and nursing teams agreed and the procedure was begun. Patient was then placed in Trendelenburg position. After injection of 0.25% Marcaine with epinephrine, a transverse elliptical incision was made using a #15 blade scalpel in order to excise the open areas of the skin directly over the port. This was carried down directly to the port using electrocautery. We encountered an infected hematoma surrounding the port that was drained. At this time the catheter was delivered out of the incision. The sutures on the mediport itself were then cut and the entire mediport/catheter complex removed and passed off as specimen. At this time the incision was irrigated until clear. Hemostasis was achieved using electrocautery. Hemostasis was complete. The port pocket was then packed with 1/4 inch iodoform gauze. Sterile dressing was applied. All needle and sponge counts were correct x 2. The patient was then awakened from anesthesia and transported to PACU in stable condition. The nurse practitioner was present and scrubbed for the entire procedure. She was essential in positioning, prepping and draping the patient, retraction and exposure and placement of the dressings. I attest to the content of the Intraoperative Record and any orders documented therein. Any exceptions are noted below.
[2023-08-18] MEDS: BUPIVACAINE/EPINEPHRINE 0.25% 1:200,000 30 ML VIAL ONE (11:06)
--- NOTE | 2023-08-18 11:20 | Anesthesiology Progress Note ---
Date of Service August 18, 2023 Anesthesia Post Procedure Vital Signs Vital Signs: Temp Pulse Pulse Pulse Resp BP BP 08/18/23 11:10 92 H 19 129/62 08/18/23 11:04 36.3 C L 94 H 19 136/70 08/18/23 10:00 37.3 C 93 H 20 124/67 08/18/23 07:44 37.1 C 91 H 18 126/69 08/18/23 01:30 37.0 C 96 H 18 135/75 08/17/23 23:47 98 H 08/17/23 23:38 08/17/23 22:38 37.5 C 104 H 18 137/71 08/17/23 19:26 37.6 C H 103 H 18 120/67 08/17/23 17:00 101 H 08/17/23 15:16 37.7 C H 104 H 18 145/73 H 08/17/23 11:44 36.6 C 96 H 20 129/76 Pulse Ox O2 Del Method 08/18/23 11:10 93 Room Air 08/18/23 11:04 95 Room Air 08/18/23 10:00 93 Room Air 08/18/23 07:44 92 Room Air 08/18/23 01:30 94 Room Air 08/17/23 23:47 08/17/23 23:38 Room Air 08/17/23 22:38 92 Room Air 08/17/23 19:26 93 Room Air 08/17/23 17:00 08/17/23 15:16 95 Room Air 08/17/23 11:44 95 Room Air Pain Intensity Right Chest: Pain Intensity: 9 Transfer of Care Handoff Completed per policy Notes Mental Status: alert / awake / arousable Patient Amnestic to Procedure: Yes Nausea / Vomiting: adequately controlled Pain: adequately controlled Airway Patency, RR, SpO2: stable & adequate BP & HR: stable & adequate Hydration State: stable & adequate Anesthetic Complications: no major complications apparent
[2023-08-18 15:41] LABS: BUN Creatinine Ratio 6.7 (10-20); Calcium 7.9 mg/dl (8.6-10.3); Creatinine Clr Calc Pharmacy 63.5 ml/min; Est GFR (African American) 92.3 ml/min; Est GFR (Non-African American) 79.6 ml/min; Magnesium 1.5 mg/dl (1.7-2.4); Potassium 3.1 mmol/L (3.5-5.1)
[2023-08-18] MEDS: MAGNESIUM SULFATE / D5W 1 GM/100 ML BAG IV SCH (17:37)
[2023-08-18] MEDS: POTASSIUM CHLORIDE PWD 20 MEQ PACK PO STA (17:38)
[2023-08-19 06:15] LABS: Hematocrit (blood only) 32.1 % (37.0-47.0); Hemoglobin 10.5 g/dl (12.0-16.0); Mean Corpuscular Hemoglobin 29.6 pg (25.0-34.0); Mean Corpuscular Hgb Conc 32.7 g/dL (32.0-36.0); Mean Corpuscular Volume 90.4 fL (80.0-100.0); Mean Platelet Volume 9.4 fL (9.4-12.4); Platelet Count 134 K/uL (130-400); RDW Coefficient of Variation 13.9 % (11.5-14.5); RDW Standard Deviation 45.9 fL (36.4-46.3); Red Blood Count 3.55 M/uL (4.20-5.40); White Blood Count 9.08 K/ul (4.8-10.8)
[2023-08-19 06:33] LABS: ANTI-Xa, UFH(UnfractionatedHep 0.38 IU/ml (0.3-0.7)
[2023-08-19 06:43] LABS: BUN Creatinine Ratio 5.9 (10-20); Calcium 8.6 mg/dl (8.6-10.3); Est GFR (African American) 79.3 ml/min; Est GFR (Non-African American) 68.5 ml/min; Magnesium 2.3 mg/dl (1.7-2.4); Phosphorus 2.5 mg/dl (2.5-4.9); Potassium 3.5 mmol/L (3.5-5.1)
--- NOTE | 2023-08-19 10:06 | Surgery Progress Note ---
Date of Service August 19, 2023 Assessment & Plan (1) Vascular port complication: Plan: POD 1 access port removal with Dr. Seth doing well dressings and packings x2 removed at bedside Repacked access port site with 1/2 inch packing strip, covered with gauze, co matthew upper hematoma site with gauze and paper tape Will reassess wound tomorrow Keep dressing in place, if bleeding occurs reinforce and notify Gen. surg Seen and examined with Dr. Seth Admission and Anticipated Discharge Date Admission Date: August 15, 2023 Supervising Physician Co-Signing Physician Notes I personally saw and evaluated the patient with Adin PLUNKETT and agree with the assessment and plan. 73 yo female with infected port a cath s/p removal Her dressing was changed at bedside this morning Continue once daily packing changes to port pocket She can follow up with me 1 week after discharge to see how the wound is healing Surgery will sign off at this time, please call with any questions or concerns Subjective pt reports doing well no bleeding threw post op dressing pain controlled Review of Systems Integumentary: + wounds Physical Exam Constitutional: cooperative and comfortable; no acute distress Respiratory: normal respiratory effort and able to speak in complete sen tences; no respiratory distress Chest (Breasts): Additional Comments: Right upper chest port removed yest. Results & Data Vital Signs (Past 12 Hours) Vital Signs Temp Pulse Pulse Resp BP BP Pulse Ox 08/19/23 07:17 98.2 F 87 16 118/68 94 08/19/23 03:03 98.6 F 94 H 18 116/69 92 08/18/23 23:10 98.2 F 96 H 18 121/68 95 08/18/23 22:22 93 H O2 Del Method 08/19/23 07:17 Room Air 08/19/23 03:03 Room Air 08/18/23 23:10 Room Air 08/18/23 22:22 PG Care Time/CCT Total # of Minutes Spent Total Time Spent with Patient: Total time spent is greater than 50% in coordination of care (as documented) at patient's floor/unit and/or counseling patient: Coding Level of Care Code 72386 Post Operative Follow-Up Diagnoses Vascular port complication T82.9XXA
--- NOTE | 2023-08-19 14:54 | Hospitalist Progress Note ---
Date of Service August 19, 2023 Assessment & Plan (1) Leukocytosis: (2) Nausea & vomiting: (3) Rheumatoid arthritis: (4) Malignant neoplasm of breast (female): Plan: In short, Ms. Rivas is a 73 yo F with PMHx rheumatoid arthritis no longer on DMARD and right breast carcinoma T1c N0 M0, stage IA who is admitted for evaluation of right portacath cellulitis. Patient states it was tender for chemoaccess 08/03, then more so since 08/08 where it continued to ooze. Patient reports feeling in otherwise baseline state of health, no fevers/chills/diarrhea, but notes that the erythema and pain worsened in last 24 hours prior to admission. 4/4 blood cultures positive MSSA on 08/14 and 2/4 on 08/15. US with thrombus. Infectious disease recommendations reviewed: likely septic thrombophlebitis, will plan for 6 weeks IV cefazolin if repeat cultures negative s/p removal of port. Per previous provider with addendum: C. Difficile Infection multiple risk factors, upwards to 9 BM on 08/17 Contact precautions placed Fidaxomicin 200mg BID started 08/17 Consider contacting ID once more for duration of rx in setting of need for 6 weeks of IV abx Probable sepsis 2/2 MSSA bacteremia POA Cellulitis Portacath, POA leukocytosis, tachycardia, source of infection IVF hydration achieved via maintenance fluids overnight Blood culture PCR: MSSA discontinue vanc/cefepime -continue Cefazolin -ID consult for line associated infection -Continue cefazolin q 8 hours TTE with out signs of vegetations -Remove cath 08/17, plan for repeat blood cultures -If repeat with growth, plan for JAIME Repeat blood culture -08/14 4/4 positive -08/15 2/4 positive -08/17 pending Wound care for superficial skin treatment, Consult Gen Surgery for infected portacath/thrombus -Removal 08/17 -Heparin held and resumed Right breast cancer, ER and [place] positive, HER2 Jeb positive Chemo dermatitis Planned for 6 cycles of TCH P and then she will have surgical intervention Pt has chemo rash on her skin from such, non pruritic. Reports appetite is not like it used to be. Prescribed Compazine, Zofran for the symptomatic treatment nausea and vomiting Took Decadron as part of pre-chemotherapy ( e-prescribed) -Neck CTA has been completed : A right internal jugular central venous infusion port is in place. There may be thrombus around the catheter. This is difficult to assess due to streak artifact from the contrast bolus. Consider ultrasound for further evaluation. The internal jugular veins are otherwise patent bilaterally. There is inflammation and edema of the right supraclavicular and upper chest wall soft tissues around the infusion port catheter suggesting cellulitis. Correlate clinically. No fluid collection is seen to indicate abscess. US doppler: There is thrombosis of the inferior aspect of the right internal jugular vein which is nonocclusive and appears to be associated with the Port-A-Cath catheter. This could be either acute or chronic. -Continue IV compazine prn gentle IVF 2/2 poor po -Triamcinolone for chemo dermatitis Portacath Thrombus -Consult placed to gen surg -Hold Heparin, since resumed -Port removal 08/17 Hgb stable, trend cbc Hypokalemia Hypomagnesemia -Replace as needed, trend with a.m. labs Aggressive IV replacement Leukocytosis *improving Immunocompromised -received pegfilgrastim s/p treatment s/p 08/03 treatment; however, notable for bacteremia -Trend CBC, treat infection as above Rheumatoid arthritis Previously on methotrexate and Orencia, but discontinued iso chemotherapy stable at this time DVT ppx: heparin drip Lines: Mediport, PIV x 1 FEN/GI: Regular diet CODE: Full code Pending port removal and final blood cultures/ID recs Admission and Anticipated Discharge Date Admission Date: August 15, 2023 Subjective Pt states that today was her best day ever. Feeling better. No pain at port removal site. Denies fevers, chills or night sweats. Review of Systems Review of Systems: All systems reviewed & are unremarkable except as noted in Subjective Physical Exam Physical Exam: General: Alert, oriented. No acute distress Skin: bandage over right chest Psych: Appropriate mood and affect Neuro: No gross deficits HEENT: NC/AT CV: RRR Resp: Breath sounds clear bilaterally, no increased effort of breathing. Abdomen: Soft, nontender Extremities: No edema in lower extremities bilaterally. Results & Data Results & Data Vital Signs (Past 12 Hours) Vital Signs Temp Pulse Resp BP BP Pulse Ox O2 Del Method 08/19/23 10:58 36.8 C 98 H 18 108/69 94 Room Air 08/19/23 07:17 36.8 C 87 16 118/68 94 Room Air 08/19/23 03:03 37.0 C 94 H 18 116/69 92 Room Air
[2023-08-20 08:04] LABS: Basophils # (auto) 0.05 K/uL (0.00-0.20); Basophils % (auto) 0.7 %; Eosinophils # (auto) 0.01 K/uL (0.00-0.50); Eosinophils % (auto) 0.1 %; Hematocrit (blood only) 31.6 % (37.0-47.0); Hemoglobin 10.2 g/dl (12.0-16.0); Immature Granulocytes # (auto) 0.12 K/uL (0.01-0.20); Immature Granulocytes % (auto) 1.7 %; Lymphocytes # (auto) 1.85 K/uL (1.20-3.40); Lymphocytes % (auto) 26.8 %; Mean Corpuscular Hemoglobin 29.2 pg (25.0-34.0); Mean Corpuscular Hgb Conc 32.3 g/dL (32.0-36.0); Mean Corpuscular Volume 90.5 fL (80.0-100.0); Mean Platelet Volume 9.7 fL (9.4-12.4); Monocytes # (auto) 0.51 K/uL (0.11-0.59); Monocytes % (auto) 7.4 %; Neutrophils # (auto) 4.36 K/uL (1.40-6.50); Neutrophils % (auto) 63.3 %; Platelet Count 188 K/uL (130-400); RDW Coefficient of Variation 14.2 % (11.5-14.5); RDW Standard Deviation 47.2 fL (36.4-46.3); Red Blood Count 3.49 M/uL (4.20-5.40)
[2023-08-20 08:25] LABS: ANTI-Xa, UFH(UnfractionatedHep 0.49 IU/ml (0.3-0.7)
[2023-08-20 08:33] LABS: Albumin Globulin Ratio 1.1 (0.9-2); Albumin Level 3.3 gm/dl (3.4-5.0); BUN Creatinine Ratio 10.3 (10-20); Bilirubin,Total 0.3 mg/dl (0.2-1.0); Calcium 8.9 mg/dl (8.6-10.3); Est GFR (African American) 101.3 ml/min; Est GFR (Non-African American) 87.4 ml/min; Magnesium 1.6 mg/dl (1.7-2.4); Phosphorus 2.5 mg/dl (2.5-4.9); Potassium 3.6 mmol/L (3.5-5.1); Total Protein 6.3 gm/dl (6.0-8.3)
[2023-08-20] MEDS: MAGNESIUM OXIDE 400 MG TAB PO SCH (11:10)
[2023-08-20] MEDS: POTASSIUM CHLORIDE CRTAB 20 MEQ TABCR PO SCH (11:10)
--- NOTE | 2023-08-20 12:21 | Hospitalist Progress Note ---
Date of Service August 20, 2023 Assessment & Plan (1) Leukocytosis: (2) Nausea & vomiting: (3) Rheumatoid arthritis: (4) Malignant neoplasm of breast (female): Plan: In short, Ms. Rivas is a 73 yo F with PMHx rheumatoid arthritis no longer on DMARD and right breast carcinoma T1c N0 M0, stage IA who is admitted for evaluation of right portacath cellulitis. Patient states it was tender for chemoaccess 08/03, then more so since 08/08 where it continued to ooze. Patient reports feeling in otherwise baseline state of health, no fevers/chills/diarrhea, but notes that the erythema and pain worsened in last 24 hours prior to admission. 4/4 blood cultures positive MSSA on 08/14 and 2/4 on 08/15. US with thrombus. Infectious disease recommendations reviewed: likely septic thrombophlebitis, will plan for 6 weeks IV cefazolin if repeat cultures negative s/p removal of port. Per previous provider with addendum: C. Difficile Infection multiple risk factors, upwards to 9 BM on 08/17 Contact precautions placed Fidaxomicin 200mg BID started 08/17 Consider contacting ID once more for duration of rx in setting of need for 6 weeks of IV abx - per ID, recommend 10 days of Fidaxo 200 mg BID (last day will be August 27, 2023). Probable sepsis 2/2 MSSA bacteremia POA Cellulitis Portacath, POA leukocytosis, tachycardia, source of infection IVF hydration achieved via maintenance fluids overnight Blood culture PCR: MSSA discontinue vanc/cefepime -continue Cefazolin -ID consult for line associated infection -Continue cefazolin q 8 hours TTE with out signs of vegetations -Remove cath 08/17, plan for repeat blood cultures -If repeat with growth, plan for JAIME Repeat blood culture -08/14 4/4 positive -08/15 2/4 positive -08/17 NGTD Wound care for superficial skin treatment, Consult Gen Surgery for infected portacath/thrombus -Removal 08/17 -Heparin held and resumed 08/19- updated ID recs, per Dr Javed -RECOMMENDATIONS: - If the blood culture from 08/17 remain negative by tomorrow, can go ahead with placement of a PICC line or another port. - please continue on IV cefazolin for a total duration of 6 weeks from the day of 1st negative blood culture. - She will require weekly labs including CBC and basic metabolic panel. Please make sure to send these labs to me personally or to her PCP to review on weekly basis. Right breast cancer, ER and [place] positive, HER2 Jeb positive Chemo dermatitis Planned for 6 cycles of TCH P and then she will have surgical intervention Pt has chemo rash on her skin from such, non pruritic. Reports appetite is not like it used to be. Prescribed Compazine, Zofran for the symptomatic treatment nausea and vomiting Took Decadron as part of pre-chemotherapy ( e-prescribed) -Neck CTA has been completed : A right internal jugular central venous infusion port is in place. There may be thrombus around the catheter. This is difficult to assess due to streak artifact from the contrast bolus. Consider ultrasound for further evaluation. The internal jugular veins are otherwise patent bilaterally. There is inflammation and edema of the right supraclavicular and upper chest wall soft tissues around the infusion port catheter suggesting cellulitis. Correlate clinically. No fluid collection is seen to indicate abscess. US doppler: There is thrombosis of the inferior aspect of the right internal jugular vein which is nonocclusive and appears to be associated with the Port-A-Cath catheter. This could be either acute or chronic. -Continue IV compazine prn gentle IVF 2/2 poor po -Triamcinolone for chemo dermatitis Portacath Thrombus -Consult placed to gen surg -Hold Heparin, since resumed -Port removal 08/17 Hgb stable, trend cbc Continue IV heparin at this time Hypokalemia Hypomagnesemia -Replace as needed, trend with a.m. labs Aggressive IV replacement Leukocytosis *improving Immunocompromised -received pegfilgrastim s/p treatment s/p 08/03 treatment; however, notable for bacteremia -Trend CBC, treat infection as above Rheumatoid arthritis Previously on methotrexate and Orencia, but discontinued iso chemotherapy stable at this time DVT ppx: heparin drip Lines: Mediport, PIV x 1 FEN/GI: Regular diet CODE: Full code Pending port removal and final blood cultures/ID recs Admission and Anticipated Discharge Date Admission Date: August 15, 2023 Subjective pt was seen with at bedside Still feeling "great" No pain at port removal site. Denies fevers, chills or night sweats. Review of Systems Review of Systems: All systems reviewed & are unremarkable except as noted in Subjective Physical Exam Physical Exam: General: Alert, oriented. No acute distress Skin: bandage over right chest Psych: Appropriate mood and affect Neuro: No gross deficits HEENT: NC/AT CV: RRR Resp: Breath sounds clear bilaterally, no increased effort of breathing. Abdomen: Soft, nontender Extremities: No edema in lower extremities bilaterally. Results & Data Results & Data Vital Signs (Past 12 Hours) Vital Signs Temp Pulse Resp BP BP Pulse Ox O2 Del Method 08/20/23 11:58 36.8 C 84 17 109/69 97 Room Air 08/20/23 08:26 36.8 C 88 18 121/65 97 Room Air 08/20/23 03:10 36.5 C 86 18 112/70 97 Room Air
--- NOTE | 2023-08-20 14:35 | Communication Note ---
Date of Service: August 20, 2023 MICROBIOLOGY: 08/14: 4/4 bottles of blood culture positive for MSSA 08/15: 2/4 bottles of blood culture positive for MSSA 08/17: 2 sets of blood culture negative to date 08/17: IV port culture positive for MSSA IMPRESSION: 1) MSSA catheter associated BSI - IV port removed on 08/17 2) Cdiff colitis 3) Breast cancer - Currently on chemotherapy (Planned for 6 cycles of TCH P followed by surgery) RECOMMENDATIONS: - If the blood culture from 08/17 remain negative by tomorrow, can go ahead with placement of a PICC line or another port. - please continue on IV cefazolin for a total duration of 6 weeks from the day of 1st negative blood culture. - She will require weekly labs including CBC and basic metabolic panel. Please make sure to send these labs to me personally or to her PCP to review on weekly basis. - As for Cdiff colitis, we would recommend 10 days of Fidaxo 200 mg BID (last day will be August 27, 2023).
[2023-08-20] MEDS: traMADol HCL 50 MG TABLET PO STA (17:04)
[2023-08-21 08:02] LABS: Basophils # (auto) 0.08 K/uL (0.00-0.20); Eosinophils # (auto) 0.03 K/uL (0.00-0.50); Eosinophils % (auto) 0.4 %; Hematocrit (blood only) 31.1 % (37.0-47.0); Hemoglobin 10.1 g/dl (12.0-16.0); Immature Granulocytes # (auto) 0.32 K/uL (0.01-0.20); Immature Granulocytes % (auto) 4.2 %; Lymphocytes # (auto) 2.01 K/uL (1.20-3.40); Lymphocytes % (auto) 26.2 %; Mean Corpuscular Hemoglobin 29.4 pg (25.0-34.0); Mean Corpuscular Hgb Conc 32.5 g/dL (32.0-36.0); Mean Corpuscular Volume 90.7 fL (80.0-100.0); Mean Platelet Volume 9.5 fL (9.4-12.4); Monocytes # (auto) 0.44 K/uL (0.11-0.59); Monocytes % (auto) 5.7 %; Neutrophils # (auto) 4.79 K/uL (1.40-6.50); Neutrophils % (auto) 62.5 %; Platelet Count 248 K/uL (130-400); RDW Coefficient of Variation 14.3 % (11.5-14.5); RDW Standard Deviation 47.1 fL (36.4-46.3); Red Blood Count 3.43 M/uL (4.20-5.40); White Blood Count 7.67 K/ul (4.8-10.8)
[2023-08-21 08:08] LABS: Albumin Globulin Ratio 1.2 (0.9-2); Albumin Level 3.3 gm/dl (3.4-5.0); BUN Creatinine Ratio 13.7 (10-20); Bilirubin,Total 0.2 mg/dl (0.2-1.0); Calcium 9.3 mg/dl (8.6-10.3); Creatinine Clr Calc Pharmacy 65.2 ml/min; Est GFR (African American) 95.4 ml/min; Est GFR (Non-African American) 82.3 ml/min; Globulin 2.8 gm/dl (2.5-4.0); Magnesium 1.4 mg/dl (1.7-2.4); Phosphorus 2.4 mg/dl (2.5-4.9); Potassium 4.1 mmol/L (3.5-5.1); Total Protein 6.1 gm/dl (6.0-8.3)
[2023-08-21 08:17] LABS: ANTI-Xa, UFH(UnfractionatedHep 0.45 IU/ml (0.3-0.7)
[2023-08-21] MEDS ORDERED: SODIUM PHOSPHATE 3 MMOL/1 ML INFUSION IV STA (10:10)
[2023-08-21] MEDS: MAGNESIUM SULFATE / D5W 1 GM/100 ML BAG IV SCH (10:45)
[2023-08-21] MEDS: SODIUM PHOSPHATE 15 MMOL in SODIUM CHLORIDE 0.9% 250 ML IV ONE (10:45)
[2023-08-21] MEDS: APIXABAN 5 MG TABLET PO SCH (11:25)
[2023-08-21] MEDS: ceFAZolin 2000MG 2,000 MG/15 ML SYR IV SCH (13:29)
--- NOTE | 2023-08-21 13:44 | Hospitalist Progress Note ---
Date of Service August 21, 2023 Assessment & Plan (1) Leukocytosis: (2) Nausea & vomiting: (3) Rheumatoid arthritis: (4) Malignant neoplasm of breast (female): Plan: In short, Ms. Rivas is a 73 yo F with PMHx rheumatoid arthritis no longer on DMARD and right breast carcinoma T1c N0 M0, stage IA who is admitted for evaluation of right portacath cellulitis. Patient states it was tender for chemoaccess 08/03, then more so since 08/08 where it continued to ooze. Patient reports feeling in otherwise baseline state of health, no fevers/chills/diarrhea, but notes that the erythema and pain worsened in last 24 hours prior to admission. 4/4 blood cultures positive MSSA on 08/14 and 2/4 on 08/15. US with thrombus. Infectious disease recommendations reviewed: likely septic thrombophlebitis, will plan for 6 weeks IV cefazolin if repeat cultures negative s/p removal of port. Per previous provider with addendum: C. Difficile Infection multiple risk factors, upwards to 9 BM on 08/17 Contact precautions placed Fidaxomicin 200mg BID started 08/17 Consider contacting ID once more for duration of rx in setting of need for 6 weeks of IV abx - per ID, recommend 10 days of Fidaxo 200 mg BID (last day will be August 27, 2023). Probable sepsis 2/2 MSSA bacteremia POA Cellulitis Portacath, POA leukocytosis, tachycardia, source of infection IVF hydration achieved via maintenance fluids overnight Blood culture PCR: MSSA discontinue vanc/cefepime -continue Cefazolin -ID consult for line associated infection -Continue cefazolin q 8 hours TTE with out signs of vegetations -Remove cath 08/17, plan for repeat blood cultures -If repeat with growth, plan for JAIME Repeat blood culture -08/14 4/4 positive -08/15 2/4 positive -08/17 NGTD Wound care for superficial skin treatment, Consult Gen Surgery for infected portacath/thrombus -Removal 08/17 -Heparin held and resumed 08/19- updated ID recs, per Dr Javed -RECOMMENDATIONS: - If the blood culture from 08/17 remain negative by tomorrow, can go ahead with placement of a PICC line or another port. - please continue on IV cefazolin for a total duration of 6 weeks from the day of 1st negative blood culture. - She will require weekly labs including CBC and basic metabolic panel. Please make sure to send these labs to me personally or to her PCP to review on weekly basis. Right breast cancer, ER and [place] positive, HER2 Jeb positive Chemo dermatitis Planned for 6 cycles of TCH P and then she will have surgical intervention Pt has chemo rash on her skin from such, non pruritic. Reports appetite is not like it used to be. Prescribed Compazine, Zofran for the symptomatic treatment nausea and vomiting Took Decadron as part of pre-chemotherapy ( e-prescribed) -Neck CTA has been completed : A right internal jugular central venous infusion port is in place. There may be thrombus around the catheter. This is difficult to assess due to streak artifact from the contrast bolus. Consider ultrasound for further evaluation. The internal jugular veins are otherwise patent bilaterally. There is inflammation and edema of the right supraclavicular and upper chest wall soft tissues around the infusion port catheter suggesting cellulitis. Correlate clinically. No fluid collection is seen to indicate abscess. US doppler: There is thrombosis of the inferior aspect of the right internal jugular vein which is nonocclusive and appears to be associated with the Port-A-Cath catheter. This could be either acute or chronic. -Continue IV compazine prn gentle IVF 2/2 poor po -Triamcinolone for chemo dermatitis Portacath Thrombus -Consult placed to gen surg -Hold Heparin, since resumed -Port removal 08/17 Hgb stable, trend cbc Continue IV heparin at this time Hypokalemia Hypomagnesemia -Replace as needed, trend with a.m. labs Aggressive IV replacement Leukocytosis *improving Immunocompromised -received pegfilgrastim s/p treatment s/p 08/03 treatment; however, notable for bacteremia -Trend CBC, treat infection as above Rheumatoid arthritis Previously on methotrexate and Orencia, but discontinued iso chemotherapy stable at this time DVT ppx: heparin drip Lines: Mediport, PIV x 1 FEN/GI: Regular diet CODE: Full code Pending port removal and final blood cultures/ID recs Admission and Anticipated Discharge Date Admission Date: August 15, 2023 Physical Exam Physical Exam: General: Alert, oriented. No acute distress Skin: bandage over right chest Psych: Appropriate mood and affect Neuro: No gross deficits HEENT: NC/AT CV: RRR Resp: Breath sounds clear bilaterally, no increased effort of breathing. Abdomen: Soft, nontender Extremities: No edema in lower extremities bilaterally. Results & Data Results & Data Vital Signs (Past 12 Hours) Vital Signs Temp Pulse Pulse Resp BP Pulse Ox O2 Del Method 08/21/23 11:55 36.8 C 83 18 104/65 96 Room Air 08/21/23 11:04 100 H 08/21/23 08:11 37.1 C 78 18 116/71 96 Room Air 08/21/23 03:35 36.8 C 78 18 118/69 96 Room Air
--- NOTE | 2023-08-21 16:50 | Discharge Summary ---
Discharge Summary Date of Service August 21, 2023 Principal Dx & Hospital Course #1 = Principal Diagnosis (1) Leukocytosis: (2) Nausea & vomiting: (3) Rheumatoid arthritis: (4) Malignant neoplasm of breast (female): Plan In short, Ms. Rivas is a 73 yo F with PMHx rheumatoid arthritis no longer on DMARD and right breast carcinoma T1c N0 M0, stage IA who is admitted for evaluation of right portacath cellulitis. Patient states it was tender for chemoaccess 08/03, then more so since 08/08 where it continued to ooze. Patient reports feeling in otherwise baseline state of health, no fevers/chills/diarrhea, but notes that the erythema and pain worsened in last 24 hours prior to admission. 4/4 blood cultures positive MSSA on 08/14 and 2/4 on 08/15. Ultrasound with thrombus. Infectious disease recommendations reviewed: likely septic thrombophlebitis, plan for 6 weeks IV cefazolin s/p removal of port. C. Difficile Infection multiple risk factors, upwards to 9 BM on 08/17 Contact precautions placed Fidaxomicin 200mg BID started 08/17 Consider contacting ID once more for duration of rx in setting of need for 6 weeks of IV abx - per ID, recommend 10 days of Fidaxo 200 mg BID (last day will be August 27, 2023) However, Fidaxomicin will cost pt up to $4000. Case discussed with ID once more on 08/20, Dr Javed. -advised since this appears to be a first case of c diff, can discharge home with po vancomycin to complete the course. -pt discharged with 7 more days of po vancomycin 125mg q6h to complete a 10 dy course of treatment (received 3 days of Dificid treatment). PCP followup. Probable sepsis 2/2 MSSA bacteremia POA Cellulitis Portacath, POA leukocytosis, tachycardia, source of infection cath IVF hydration achieved via maintenance fluids Blood culture PCR: MSSA discontinue vanc/cefepime -continue Cefazolin -ID consult for line associated infection -Continue cefazolin q 8 hours TTE with out signs of vegetations -Removed cath 08/17, repeated blood cultures afterwards on 08/17 -Plan per ID was for JAIME if repeat cultures showed growth Blood cultures -08/14 4/4 positive -08/15 2/4 positive -08/17 NGTD in any bottles Wound care for superficial skin treatment, chest wound growing MSSA as well. Consulted Gen Surgery for infected portacath/thrombus -Removal 08/17 -Heparin held and resumed. Transitioned to po Eliquis on discharge per discussion with pt's outpt it network administrator/Oncologist Dr Faustino Sharif on 08/20. 08/19- updated ID recs, per Dr Javed -RECOMMENDATIONS: - If the blood culture from 08/17 remain negative by tomorrow, can go ahead with placement of a PICC line or another port. - please continue on IV cefazolin for a total duration of 6 weeks from the day of 1st negative blood culture. - She will require weekly labs including CBC and basic metabolic panel. Please make sure to send these labs to me personally or to her PCP to review on weekly basis. PICC consent obtained on 08/20, PICC line placed. Pt received teaching for IV abx prior to discharge. Will have home health services. Pt discharged with IV Cefazolin for 6 weeks to end on 09/29/23, labs to go PCP. PCP, ID and General surgery followup after discharge. Right breast cancer, ER and LA positive, HER2 Jeb positive Chemo dermatitis Planned for 6 cycles of TCH P and then she will have surgical intervention Pt has chemo rash on her skin from such, non pruritic. Reports appetite is not like it used to be. Prescribed Compazine, Zofran for the symptomatic treatment nausea and vomiting Took Decadron as part of pre-chemotherapy ( e-prescribed) -Neck CTA has been completed : A right internal jugular central venous infusion port is in place. There may be thrombus around the catheter. This is difficult to assess due to streak artifact from the contrast bolus. Consider ultrasound for further evaluation. The internal jugular veins are otherwise patent bilaterally. There is inflammation and edema of the right supraclavicular and upper chest wall soft tissues around the infusion port catheter suggesting cellulitis. Correlate clinically. No fluid collection is seen to indicate abscess. US doppler: There is thrombosis of the inferior aspect of the right internal jugular vein which is nonocclusive and appears to be associated with the Port-A-Cath catheter. This could be either acute or chronic. Compazine did not help nausea Was started on olanzapine which provided significant relief. Discharged with the same for prn nausea needs at home. gentle IVF 2/2 poor po Triamcinolone for chemo dermatitis Close Oncology followup after discharge Portacath Thrombus -Consult placed to gen surg -Held Heparin for procedure, since resumed -Port removal 08/17 Hgb stable Continued IV heparin Transitioned to po Eliquis on discharge per discussion with pt's outpt it network administrator/Oncologist Dr Faustino Sharif on 08/20. Hypokalemia Hypomagnesemia Replaced as needed Leukocytosis *improving Immunocompromised -received pegfilgrastim s/p treatment s/p 08/03 treatment; however, notable for bacteremia -Trended CBC, treated infection as above Rheumatoid arthritis Previously on methotrexate and Orencia, but discontinued in setting of chemotherapy stable at this time Notes For Next Care Provider Please ensure close oncology followup Please ensure weekly monitoring of ID labs for IV abx course Please ensure followup with General Surgery after port removal Medication Changes From Visit PO Vancomycin 125mg q6h x 7 more days Olanzapine 2.5mg prn for NAUSEA (pt received relief with this) Eliquis 10mg (13 more doses) then 5mg BID Admission HPI Per Admitting Provider This is a 73 yo F with PMHx rheumatoid arthritis no longer on DMARD and right breast carcinoma T1c N0 M0, stage IA who is admitted for R mediport erythema, edema and tenderness with concern for infection vs hematoma vs thrombus. She presents to the hospital with complaints of Right IJ mediport tenderness, swelling, and pain with accessing on Thursday earlier this week. She denies any fever, chills, sweats, respiratory complaints. Pt notes that she has seen oozing from the site after the access on Thursday for IV fluids. Today noticed worsening swelling and presented to the ER. She denies any other acute complaints. Does not think food tastes Very good since having her first round of chemo which was approximately 1.5 months ago. She has been taking her medications as prescribed. States that she takes daily nausea pill, Compazine which does provide relief. Admission Exam Per Admitting Provider GENERAL APPEARANCE: AxOx4, fatigued/chronically ill appearing woman no acute distress. HEENT: NC, AT. MMM. EOMI, clear conjunctiva, oropharynx clear. NECK: Supple without lymphadenopathy. No stiffness or restricted ROM. HEART: Normal rate and regular rhythm, normal S1/S1, no m/r/g LUNGS: CTAB, moving air well. No crackles or wheezes are heard. ABDOMEN: Soft, nontender, nondistended with good bowel sounds heard. BACK: No CVAT, no obvious deformity. EXTREMITIES: Without cyanosis, clubbing or edema. NEUROLOGICAL: Grossly nonfocal. Alert and oriented, moving all 4 extremities. CN not formally tested but appear grossly intact.. Skin: noted erythema and swelling over right upper chest follow tract of port, tenderness to palpation, no warmth, oozing of blood from port site despite not being accessed since admission Discharge Exam General: Alert, oriented. No acute distress Skin: bandage over right chest Psych: Appropriate mood and affect Neuro: No gross deficits HEENT: NC/AT CV: RRR Resp: Breath sounds clear bilaterally, no increased effort of breathing. Abdomen: Soft, nontender Extremities: No edema in lower extremities bilaterally. Updated Medication List Medication Instructions Recorded Confirmed Type Chemo Treatment 1 dose miscellaneous UD 07/21/23 08/15/23 History calcium carbonate (Calcium 600) 600 mg PO BID 07/21/23 08/15/23 History dexamethasone 4 mg tablet 4 mg PO UD 07/21/23 08/15/23 History folic acid 1 mg tablet 1 mg PO DAILY 07/21/23 08/15/23 History ondansetron HCl 8 mg tablet 8 mg PO DIRECTED PRN n/v 07/21/23 08/15/23 History prochlorperazine maleate 10 mg 10 mg PO Q6H PRN n/v 07/21/23 08/15/23 History tablet diphenoxylate-atropine 2.5 1 tab PO QID PRN Diarrhea 08/15/23 08/15/23 History mg-0.025 mg tablet apixaban 5 mg tablet (Eliquis) See Rx Instructions .Route 08/21/23 Rx .COMPLEX #68 tabs olanzapine 5 mg disintegrating 2.5 mg (1/2 x 5 mg) PO Q12H PRN 08/21/23 Rx tablet nausea and vomiting #30 tabs vancomycin 125 mg capsule 125 mg PO Q6H #28 caps 08/21/23 Rx Hospital Stay Data Consultations 08/15/23 12:42 ED Decision to Admit Stat 08/16/23 07:32 Consult Infectious Diseases Routine 08/17/23 09:22 Consult General Surgery Routine Procedures Performed Operation Date: 08/18/23 10:45 Actual Procedures p Aport Removal pf right chest - Andriy A. Rolo, DO Diagnostic Imagining Performed 08/15/23 10:24 CT angio chest PE protocol Stat CT angio neck with con Stat 08/15/23 10:44 US soft tissue ext ltd Routine 08/15/23 20:25 US venous doppler UE RT Stat Chest X-Ray 08/15/23 10:17 SINGLE VIEW CHEST CLINICAL HISTORY: Swelling and erythema at the infusion port site. FINDINGS: An AP, portable, upright chest radiograph is obtained. No prior studies are available for comparison at the time of dictation. A right-sided central venous infusion port is in place. Imaged portions of the catheter appear intact. The cardiomediastinal silhouette is top normal for projection noting atherosclerotic calcification of the thoracic aorta. The lungs and pleural spaces are clear. No pneumothorax is seen. The skeletal structures are osteopenic. The bony thorax is grossly intact. IMPRESSION: No acute cardiopulmonary abnormality is identified. ACT 112: Negative or not required by law. Electronically signed by: Sourav Dupree M.D. 08/15/2023 10:37 AM Chest CTA 08/15/23 10:24 CT ANGIOGRAM OF THE CHEST CLINICAL HISTORY: Swelling and erythema around a central venous infusion port. COMPARISON STUDY: Chest x-ray dated 08/15/2023. TECHNIQUE: Following the IV administration of 112 cc of Optiray 320, CT angiogram of the chest was performed from the upper abdomen to the thoracic inlet utilizing the pulmonary embolus protocol. Images are reviewed in the axial, sagittal, and coronal planes. 3-D MIPS images are created and assessed. IV contrast was administered without complication. A dose lowering technique was utilized adhering to the principles of ALARA. The examination is degraded by streak artifact from the arms which could not be elevated above the chest. CT DOSE: 671.86 mGy.cm FINDINGS: Soft tissues: A right internal jugular central venous infusion port is in place. There is inflammation and edema within the right supraclavicular soft tissues and right upper chest wall around the infusion port. No fluid collection is seen to suggest abscess. There may be thrombus within the internal jugular vein around the catheter. Thyroid: Low-attenuation thyroid nodules measure up to 1 mm. Thoracic aorta: The thoracic aorta is normal in caliber and demonstrates standard 3-vessel arch anatomy. No dissection is seen. Pulmonary vasculature: The pulmonary trunk is normal in caliber. There are no filling defects identified in main, lobar, or segmental pulmonary branches to suggest pulmonary embolus. Heart: The heart is top normal in size and without pericardial effusion. There are coronary artery calcifications. Lungs and pleural spaces: There is no airspace consolidation or pleural effusion. The trachea and central airways are clear. Dependent atelectasis is seen at the lung bases. There is a 3 mm left upper lobe pulmonary nodule seen on image #193. Mediastinum: There is no mediastinal lymphadenopathy. Susi: Clear. Axillae: There is no axillary lymphadenopathy. Upper abdomen: Cholecystectomy clips are noted. Partially visualized upper abdominal viscera is within normal limits. Skeletal structures: The skeletal structures are osteopenic. Degenerative change is noted in the shoulders and thoracic spine. No lytic or blastic bony lesions are seen. IMPRESSION: 1. There is no evidence of pulmonary embolus in the main, lobar, or segmental pulmonary arteries. 2. There is no airspace consolidation or pleural effusion. 3. There is inflammation and edema in the right supraclavicular tissues as well as the right upper chest wall around the infusion port. Correlate clinically for evidence of cellulitis. No fluid collection is seen to indicate abscess. 4. Question thrombus in the internal jugular vein around the catheter. This is not well assessed due to mixing and streak artifact. Consider ultrasound correlation for further assessment. 5. There is a 3 mm left upper lobe pulmonary nodule. If warranted this can be followed as per the Fleischner criteria. See below. 6. Additional findings as above. Please refer to below summary of Fleischner criteria recommendations for follow- up of incidental CT nodules (Crystal Tyler, Guidelines for management of small pulmonary nodules detected on CT scans: A statement from the Fleischner [facility], Radiology 237: [phone].) SOLID NODULES Solitary nodule size: <6 mm * low risk patients: no follow-up needed * high risk patients: optional CT at 12 months Solitary nodule size: 6-8 mm * low risk patients: follow-up at 6-12 months, then consider further follow-up at 18-24 months * high risk patients: initial follow-up CT at 6-12 months and then at 18-24 months if no change Solitary nodule size: >8 mm * either low or high risk patients - consider follow-up CT at 3 months, and/or CT-PET, and/or biopsy Multiple nodules size: <6 mm * low risk patients: no routine follow-up * high risk patients: optional CT at 12 months Multiple nodules size: 6-8 mm * low risk patients: follow-up at 3-6 months, then consider further follow-up at 18-24 months * high risk patients: follow-up at 3-6 months, then at 18-24 months if no change Multiple nodules size: >8 mm * low risk patients: follow-up at 3-6 months, then consider further follow-up at 18-24 months * high risk patients: follow-up at 3-6 months, then at 18-24 months if no change Note: newly detected indeterminate nodule in persons 35 years of age or older. * low risk patients: minimal or absent history of smoking and/or other known risk factors * high risk patients: history of smoking or of other known risk factors (e.g. first degree relative with lung cancer, or exposure to asbestos, radon, uranium) * if a nodule up to 8 mm is partly solid or is ground glass further follow-up is required after 24 months to exclude possible slow growing adenocarcinoma (ALAYNA) SUBSOLID NODULES Solitary pure ground-glass nodule * nodule size <6 mm - no CT follow-up required * nodule size >=6 mm - follow-up CT at 6-12 months, then every 2 years until 5 years Solitary part-solid nodule * nodule size <6 mm - no CT follow-up required * nodule size >=6 mm - follow-up CT at 3-6 months. If unchanged, and solid component remains <6 mm, then annual follow-up for 5 years Multiple subsolid nodules * nodule size <6 mm - follow-up CT at 3-6 months, consider further follow-up at 2 and 4 years if stable * nodule size >=6 mm - follow-up CT at 3-6 months, subsequent management based on the most suspicious nodule(s) ACT 112: Negative or not required by law. Electronically signed by: Sourav Dupree M.D. 08/15/2023 2:07 PM Neck CTA 08/15/23 10:24 CT ANGIOGRAM OF THE NECK CLINICAL HISTORY: Swelling and erythema around an infusion port catheter. COMPARISON STUDY: No priors. TECHNIQUE: Following the IV administration of 112 of Optiray 320, CT angiogram of the neck was performed from the aortic arch to the skull base. Images are reviewed in the axial, sagittal, and coronal planes. 3-D MIPS images are created and assessed. IV contrast was administered without complication. All measurements were calculated based on NASCET criteria. A dose lowering technique was utilized adhering to the principles of ALARA. FINDINGS: Thoracic aorta: There is moderate atherosclerotic calcification of the thoracic aorta. Visualized portions of the thoracic aorta are normal in caliber. The aortic arch demonstrates standard 3-vessel anatomy. Right carotid arterial system: The right common carotid artery is widely patent, as are the right internal and external carotid arteries. Left carotid arterial system: The left common carotid artery is widely patent, as are the left internal and external carotid arteries. Vertebral arteries: The vertebral arteries are widely patent bilaterally noting right-sided dominance. Subclavian arteries: Widely patent bilaterally. Jugular veins: A right internal jugular centimeters infusion port is in place. There may be thrombus around the infusion port catheter at the thoracic inlet. This difficult to assess due to artifact. The internal jugular veins are otherwise patent bilaterally. Brain parenchyma: The visualized brain parenchyma the skull base is within normal limits. Lung apices: Partially visualized upper lobe lung parenchyma appears clear. Soft tissues: There is inflammation/edema in the right supraclavicular soft tissues and right upper chest wall around the infusion port catheter. No organized/terminal fluid collection is seen to indicate abscess. The visualized pharyngeal soft tissues are normal in appearance noting angiographic phase technique. The oropharyngeal airway appears widely patent. The thyroid gland is normal in size and attenuation. Low-attenuation thyroid nodules measure up to 11 mm. The salivary glands are normal in appearance. No cervical lymphadenopathy is seen. Skeletal structures: The skeletal structures are osteopenic. The visualized calvarium at the skull base appears intact. The imaged cervical spine is maintained noting mild multilevel spondylosis. Sinuses and mastoids: The visualized paranasal sinuses are clear. The mastoid air cells are well pneumatized. IMPRESSION: 1. Unremarkable CT angiogram of the neck. 2. A right internal jugular central venous infusion port is in place. There may be thrombus around the catheter. This is difficult to assess due to streak artifact from the contrast bolus. Consider ultrasound for further evaluation. 3. The internal jugular veins are otherwise patent bilaterally. 4. There is inflammation and edema of the right supraclavicular and upper chest wall soft tissues around the infusion port catheter suggesting cellulitis. Correlate clinically. No fluid collection is seen to indicate abscess. ACT 112: Negative or not required by law. Electronically signed by: Sourav Dupree M.D. 08/15/2023 12:10 PM Soft Tissue Ultrasound 08/15/23 10:44 ULTRASOUND OF THE RIGHT CHEST WALL NONVASCULAR CLINICAL HISTORY: Swelling and erythema around an infusion port. COMPARISON STUDY: Chest CT was performed earlier the same day 08/15/2023. FINDINGS: Real-time, grayscale and color flow sonography of the anterior right upper chest wall is performed at the site of interest around the infusion port catheter. There is a complex nonvascular pocket of fluid within the subcutaneous soft tissues around the catheter. This measures 4.4 x 0.9 x 1.1 cm, and there is surrounding soft tissue edema. The surrounding soft tissues appear mildly hyperemic on color imaging. IMPRESSION: Soft tissue edema with a 4.4 cm complex pocket of fluid in the subcutaneous tissues around the infusion port catheter. This could represent hematoma or abscess and clinical correlation will be essential. Dictated: 08/15/2023 6:08 PM Transcribed: 08/15/2023 7:22 PM Forrest [id number] Electronically signed by: Sourav Dupree M.D. 08/15/2023 8:04 PM Venous Doppler Study 08/15/23 20:25 Exam(s): US VENOUS RIGHT UPPER EXTREMITY EXAM: US Duplex Right Upper Extremity Veins CLINICAL HISTORY: Reason for exam: possible thrombus in rt internal jugular vein. TECHNIQUE: Real-time duplex ultrasound scan of the right upper extremity veins integrating B-mode two-dimensional vascular structure, Doppler spectral analysis, color flow Doppler imaging and compression. COMPARISON: CT angiogram of the neck from August 16, 2023 FINDINGS: Deep veins: Unremarkable. No DVT in the internal jugular, subclavian, axillary, or brachial veins. The veins demonstrate normal color flow, are normally compressible, with normal phasic flow and/or augmentation response. Superficial veins: There is thrombosis of the right antecubital vein which appears to be associated with an IV. Soft tissues: No acute findings. Tubes, lines and devices: There is thrombosis of the inferior aspect of the right internal jugular vein which is nonocclusive and appears to be associated with the Port-A-Cath catheter. IMPRESSION: 1. There is thrombosis of the right antecubital vein which appears to be associated with an IV. This is consistent with superficial thrombophlebitis. 2. There is thrombosis of the inferior aspect of the right internal jugular vein which is nonocclusive and appears to be associated with the Port-A-Cath catheter. This could be either acute or chronic. Electronically signed by: Jorge Alberto Leroy MD 08/16/23 00:54 AM Discharge Instructions Given to Patient (Per Discharging Provider) Ms. Rivas, You are being discharged home per your request. Please continue with the IV Cefazolin every 8 hours as you have been taught and keep close followup with home health services. For your c diff infection, Infectious disease recommended switcing for 7 more days to oral vancomycin which is a cheaper option for treatment. A prescription was sent to your pharmacy. The Dificid prescription was cancelled. After discussion with your it network administrator/Oncologist, he recommended that you be discharged with an oral blood thinner to prevent blood clots. Please take the Eliquis 10mg(2 pills) twice a day for 13 more doses or about 6.5 days and then take it 5mg (1 pill) twice a day from then on. Please keep close followup with your primary care provider and oncologist for more refills or the total length of treatment. You found nausea relief while you were here with the medication olanzapine. We sent you a prescription for as needed use. Please keep close follow up with your primary care provider and oncologist after discharge. Your general surgeon who took out the port has further instructions for you below. Please keep followup with them as well as scheduled. Please do not hesitate to come back to the emergency room if your symptoms worsen or return. It was a pleasure taking care of you while you were here. Total Time Total Time Spent Total Time Spent (In Minutes): 75
== END 2023-08-21 17:53 | disposition home health service (06) | DRG 314 ==
LOC: ED 09:47 → 2W 13:01 → SUATTDRO 13:01 → 2W 14:30

== ENCOUNTER 2023-10-22 21:59 | Observation (INO) ==
[2023-10-22] MEDS ORDERED: MoRPHine SULFATE 2 MG/ML CARP IV PRN (22:30)
--- NOTE | 2023-10-22 22:32 | Emergency Department Note ---
Impression & Plan Right-sided chest pain, Hematoma, S/P bilateral mastectomy, Anemia ED Provider Note NAME: DANIEL GILBERT AGE: 73 SEX: F : 1950 ARRIVES VIA: Walk-In INFORMANT: [Patient] ED PROVIDER(S): [Sourav Summers MD] CHIEF COMPLAINT: Swelling, pain HISTORY OF PRESENT ILLNESS: The patient is a 73-year-old female who presents to the ER with right chest pain and swelling. The patient states that she had a double mastectomy for breast cancer 3 days ago. This was done at [facility] in [place] by Dr. Sol. Patient had held her Eliquis for the procedure but then restarted the Eliquis the next day. Patient has had increasing bleeding from the right side and tonight, began noticing some swelling and increased pain. She presents to the hospital for evaluation. She did speak with the surgical service on-call but states she never received a phone call back. There has been no fever, no shortness of breath. She is not dizzy. PMHx/PSHx/Social Hx: See Below PHYSICAL EXAM: GENERAL: Patient is in no acute distress. HEENT: No acute trauma, normocephalic atraumatic, mucous membranes moist, no nasal congestion. NECK: No stridor, no adenopathy, no meningismus, trachea is midline. LUNGS: Clear to auscultation bilaterally, no wheeze, no rhonchi, breath sounds equal. Chest: She has swelling to the surgical site across the chest on the right. There is contusion bilaterally, no erythema or warmth. There is a fullness and firmness on the right consistent with a large hematoma--this area is tender. She has WOLF drains in place bilaterally, there is more blood in the right WOLF drain than the left. HEART: Regular rate and rhythm. ABDOMEN: Soft, nontender, no peritonitis. EXTREMITIES: No cyanosis, full range of motion of all the joints without pain or difficulty. NEUROLOGIC: Oriented x 3, no acute motor or sensory deficits, no focal weakness. SKIN: No jaundice, no diaphoresis. DIFFERENTIAL DIAGNOSIS: Coagulopathy, anemia, arterial bleeding, hematoma, abscess, among others. EMERGENCY DEPARTMENT PROCEDURES: MEDICAL DECISION MAKING: There is no leukocytosis. The patient is anemic however, her hemoglobin is stable looking back at previous testing. There was a normal platelet count. Coags are currently pending. There was no significant electrolyte abnormality or renal failure. Chest film does not show pneumonia or pneumothorax. The drains were noted in position bilaterally. On exam, the patient had contusion to the chest wall consistent with the recent surgery. She had WOLF drains in place. There was no exam finding to suggest cellulitis/infection. There was a firm hematoma to the right chest in the area of her surgical incision. Patient received IV morphine for pain. She was given IV Zofran for nausea. I spoke with the patient, I did speak with surgery on-call. General surgery did see the patient here in the ED. The patient will be hospitalized for observation and pain management. At this point, she does not require repeat OR intervention. The patient was feeling better since being medicated. She understands the need for a hospital stay. Her Eliquis will need to be held as this is certainly contributing to the bleeding/hematoma. Prior/Outside records/notes reviewed: None Imaging/x-ray results per my interpretation: Chest x-ray shows the drains to be in position. The lungs appear clear. There was no pneumothorax. Chronic Medical/Social conditions affecting care: Chronic Eliquis use. Care/Management discussed with: General Surgery on-call-Dr. Jimenez and Hasmukh Seth Level of care consideration(s): After review of the information above and other included data: --I believe the patient requires escalation of care to admission DISPOSITION: Admission Past Med/Surg History Problem List (Updated 10/22/23 @ 23:50 by Sourav Summers MD) Anemia (Acute) S/P bilateral mastectomy (Acute) Hematoma (Acute) Right-sided chest pain (Acute) Chest wall hematoma Open wound of chest wall Bacteremia Bacteremia associated with intravascular line Breast cancer (Acute) Vascular port complication (Acute) Cellulitis of chest wall (Acute) Elevated troponin (Acute) Leukocytosis (Acute) Nausea & vomiting Abdominal pain (Acute) Medical History Rheumatoid arthritis Osteoarthrosis Malignant neoplasm of breast (female) Surgical History History of removal of Port-a-Cath (08/18/23) Removal of access port Dr. Seth S/P cholecystectomy History of insertion of tunneled central venous catheter (CVC) with port Family History Other Cancer Coronary heart disease Heart disease Hypertension Social History Smoking Status: Never smoker Hx Alcohol Use: No Hx Substance Use: No Preferred Language: Telugu Communication Ability: Effective Visual Impairment: No Limitations Medical Administrator Required: No Beliefs That Will Affect Care: None Current Living Situation: Spouse Feels Safe at Home: Yes Assistive Devices: None Allergies Allergies Allergy/AdvReac Type Severity Reaction Status Date / Time No Known Allergies Allergy Verified 10/22/23 23:13 Home Meds Home Medications Medication Instructions Recorded Confirmed calcium carbonate (Calcium 600) 600 mg PO BID 07/21/23 10/22/23 apixaban 5 mg tablet (Eliquis) 5 mg PO BID 10/22/23 10/22/23 doxycycline hyclate 100 mg capsule 100 mg PO BID 10/22/23 10/22/23 folic acid 1 mg tablet 1 mg PO DAILY 10/22/23 10/22/23 Results & Data (ED) Vital Signs Vital Signs - 24 hr 10/22/23 22:04 10/22/23 23:02 10/22/23 23:30 Temperature 36.4 C L Temperature Source Temporal Artery Scan Pulse Rate 99 H Pulse Rate [Finger] 88 83 Pulse Rhythm Regular Pulse Rhythm [Finger] Regular Respiratory Rate 16 18 18 Respiratory Effort / Characteristics Non-Labored Non-Labored Spontaneous Non-Labored Spontaneous Respiratory Depth Normal Normal Normal Respiratory Pattern Regular Regular Blood Pressure 140/80 Blood Pressure [Right Arm] 157/92 H 132/74 Blood Pressure Mean 100 Blood Pressure Mean [Right Arm] 113 93 Pulse Oximetry 99 96 94 Oxygen Delivery Method Room Air Room Air Room Air Sepsis Recent Fever Within 48 Hours No Sepsis New/Unexplained Change in Mental Status No Sepsis Action Taken by Nursing No Action Required Home Medications Current Medication List: was personally reviewed by me Laboratory Data Attestation: I reviewed the patient's lab results. 10/22/23 22:39 10/22/23 22:39 Lab Results 10/22/23 Range/Units 22:39 WBC 9.12 (4.8-10.8) K/ul RBC 3.64 L (4.20-5.40) M/uL Hgb 10.6 L (12.0-16.0) g/dl Hct 33.3 L (37.0-47.0) % MCV 91.5 (80.0-100.0) fL MCH 29.1 (25.0-34.0) pg MCHC 31.8 L (32.0-36.0) g/dL RDW Std Deviation 40.8 (36.4-46.3) fL RDW Coeff of Vitaly 12.0 (11.5-14.5) % Plt Count 301 (130-400) K/uL MPV 9.1 L (9.4-12.4) fL Sodium 139 (136-145) mmol/L Potassium 3.6 (3.5-5.1) mmol/L Chloride 102 (98-107) mmol/L Carbon Dioxide 29 (21-32) mmol/L Anion Gap 8 (3-11) BUN 17 (6-23) mg/dl Creatinine 0.92 (0.6-1.2) mg/dl Est Cr Clr Drug Dosing 49.7 ml/min Est GFR ( Amer) 72.1 ml/min Est GFR (Non-Af Amer) 62.2 ml/min BUN/Creatinine Ratio 18.5 (10-20) Glucose 109 H (70-99(Fasting)) mg/dl Calcium 9.6 (8.6-10.3) mg/dl Administered Medications Sodium Chloride (Nss) 1,000 mls @ 75 mls/hr IV .[id number] DANIEL Stop: 11/21/23 23:14 Last Admin: 10/22/23 23:27 Dose: 75 mls/hr Documented By: DAYANARA Morphine Sulfate (Morphine Sulfate 4 Mg/Ml 1 Ml Carp\Vial) 3 mg IV Q3H PRN PRN Reason: Severe Pain (Scale 7, 8, 9,10) Stop: 11/05/23 23:08 Last Admin: 10/22/23 23:24 Dose: 3 mg Documented By: DAYANARA Discontinued Medications Morphine Sulfate (Morphine Sulfate 2 Mg/Ml Carp) 2 mg IV NOW STA Stop: 10/22/23 22:31 Last Admin: 10/22/23 22:51 Dose: 2 mg Documented By: DAYANARA Discharge Plan Visit Data Chief Complaint: Swelling/Edema to Extremity Stated Complaint: DOUBLE MASSECTAMY, RT SIDE/EDEMA/BLEEDING ED Provider: Sourav Summers Discharge Problem: Right-sided chest pain, Hematoma, S/P bilateral mastectomy, Anemia Patient Disposition: Admitted As Inpatient Condition: Fair Forms Stand Alone Forms: [facility] Prescriptions Prescriptions: No Action doxycycline hyclate 100 mg capsule 100 mg PO BID Rx Instructions: STARTED 10/13/23 FOR 14 DAYS Eliquis 5 mg tablet 5 mg PO BID folic acid 1 mg Tablet 1 mg PO DAILY calcium carbonate [Calcium 600] 600 mg calcium (1,500 mg) Tablet 600 mg PO BID Referrals Referrals: Charlene York CRNP [Primary Care Provider] - Discharge Problem: Anemia Qualifiers: Anemia type: unspecified type Qualified Code(s): D64.9 - Anemia, unspecified
[2023-10-22] MEDS: MoRPHine SULFATE 2 MG/ML CARP IV STA (22:51)
[2023-10-22 23:00] LABS: Hematocrit (blood only) 33.3 % (37.0-47.0); Hemoglobin 10.6 g/dl (12.0-16.0); Mean Corpuscular Hemoglobin 29.1 pg (25.0-34.0); Mean Corpuscular Hgb Conc 31.8 g/dL (32.0-36.0); Mean Corpuscular Volume 91.5 fL (80.0-100.0); Mean Platelet Volume 9.1 fL (9.4-12.4); Platelet Count 301 K/uL (130-400); RDW Standard Deviation 40.8 fL (36.4-46.3); Red Blood Count 3.64 M/uL (4.20-5.40); White Blood Count 9.12 K/ul (4.8-10.8)
--- NOTE | 2023-10-22 23:04 | History & Physical Report ---
Date of Service October 22, 2023 Assessment & Plan (1) Chest wall hematoma: Plan: I discussed with the treating emergency room physician and evaluated the patient in room B10. Due to the patient's recent surgery and clinical presentation she will be admitted to the surgical service proceeding as follows: I do suspect that the patient had some bleeding at her surgical site likely related to her resumption of her Eliquis Will hold her Eliquis A CBC has been ordered to get a baseline reading of her hemoglobin and hematocrit and this is pending we will follow-up for the results Serial labs will be followed I have obtained a type and screen as well as a blood consent for the patient in the event the blood transfusion is needed Analgesics will be provided Antiemetics will be provided Will keep the patient n.p.o. after midnight and she will be reevaluated by the [facility] surgical team the morning of 10/23/2023 to determine if any procedural intervention such as opening her incision will be required At the time my interview the patient was nontoxic-appearing. She has noted to be normotensive without tachycardia or fever. Will utilize SCDs only for DVT prevention, no chemical means due to her bleeding issues She will be a level 1 full code Addendum (11:15 PM) Patient's CBC results were obtained. Her white blood cell count and platelet count are within the normal range. Hemoglobin and hematocrit are 10.6 and 33.3 (review of patient's available records show that this is near the patient's previous values from July of this year) Will continue with the plan as outlined above with further recommendations to follow. History of Present Illness Chief Complaint: Right breast swelling following mastectomy Primary Care Provider: DIMITRIOS Montoya This is a 73-year-old female with an underlying history of breast cancer. She underwent bilateral mastectomies by Dr. Sol Sol of [facility] surgery on 10/19/2023 at [facility] in [place], [place]. Patient notes that her surgery was done on outpatient basis. Patient notes that she takes Eliquis secondary to history of a blood clot at a previous bleed placed a port which resulted in neck swelling. She notes that her Eliquis was resumed the day following her surgery. Patient called the answering service earlier this evening as she noted some increased swelling at her right mastectomy site earlier today and she noted that it got worse throughout the day. She specifically denies any fevers, shakes, or chills. She says she is eating a normal diet. She denies any lightheadedness or dizziness. She is not short of breath. Patient does have WOLF drains in place. The left WOLF drain has minimal drainage and is straw-colored. She does note that the WOLF output over the past 24 hours in the right mastectomy site has been mostly dark blood. She notes that between approximately 8:00 and 3:00 PM today it only drained 10 cc but she did note several blood clots in the tubing. She did attempt to strip the tubing and this did not help relieve any of the swelling. She does note that as the swelling of her right breast seem to increase and became somewhat more painful. She therefore presented to the emergency department. Since arrival to the emergency department the patient has had labs drawn which are pending at the time of this dictation. At the time of my interview the patient was not in any distress but she was noting some pain at her surgical incisions and some pain at the area of the right breast. Allergies Allergy/AdvReac Type Severity Reaction Status Date / Time No Known Allergies Allergy Verified 10/22/23 23:13 Home Medications Medication Instructions Recorded Confirmed Type calcium carbonate (Calcium 600) 600 mg PO BID 07/21/23 10/22/23 History apixaban 5 mg tablet (Eliquis) 5 mg PO BID 10/22/23 10/22/23 History doxycycline hyclate 100 mg capsule 100 mg PO BID 10/22/23 10/22/23 History folic acid 1 mg tablet 1 mg PO DAILY 10/22/23 10/22/23 History Past Med/Surg History Problem List (Updated 10/22/23 @ 23:50 by Sourav Summers MD) Anemia (Acute) S/P bilateral mastectomy (Acute) Hematoma (Acute) Right-sided chest pain (Acute) Chest wall hematoma Open wound of chest wall Bacteremia Bacteremia associated with intravascular line Breast cancer (Acute) Vascular port complication (Acute) Cellulitis of chest wall (Acute) Elevated troponin (Acute) Leukocytosis (Acute) Nausea & vomiting Abdominal pain (Acute) Medical History Rheumatoid arthritis Osteoarthrosis Malignant neoplasm of breast (female) Surgical History History of removal of Port-a-Cath (08/18/23) Removal of access port Dr. Seth S/P cholecystectomy History of insertion of tunneled central venous catheter (CVC) with port Family History Other Cancer Coronary heart disease Heart disease Hypertension Social History Smoking Status: Never smoker Hx Alcohol Use: No Hx Substance Use: No Preferred Language: Kyrgyz Communication Ability: Effective Visual Impairment: No Limitations Prospecting Driller Required: No Beliefs That Will Affect Care: None Current Living Situation: Spouse Feels Safe at Home: Yes Assistive Devices: None Review of Systems Review of Systems: All systems reviewed & are unremarkable except as noted in HPI & below Physical Exam Constitutional: WD/WN, vitals as above Eyes: no conjunctival abnormality ENMT: Ears: no hearing impairment and no external ear abnormality Mouth: no oropharynx abnormality Neck: trachea midline Respiratory: normal respiratory effort; no respiratory distress and no labored breathing Cardiovascular: Rate/Rhythm: regular rate and regular rhythm Vessels: radial pulses present Chest (Breasts): Additional Comments: With a female nurse hospice care transitions coordinator present the patient's vasectomy sites were examined. Her entire mastectomy incision was clean, dry, and intact. Steri- Strips were overlying the incision. There is minimal erythema. It did not appear to be warm. There is some bruising noted on the inferior portion of the right mastectomy site but the skin did not look necrotic. The patient had bilateral WOLF drains in place. The left WOLF drain was draining straw-colored fluid. The right WOLF drain was draining dark blood with some visible clot in the tubing. At the inferior portion of her right mastectomy site there was some firmness noted. There is no drainage noted from the incision itself. Gastrointestinal (Abdomen): Soft and nontender Musculoskeletal: No calf tenderness, feet are warm and well-perfused Skin: no rashes Neurologic: moves all extremities Psychiatric: A+Ox3, euthymic affect Results & Data Results & Data Vital Signs (Past 12 Hours) Vital Signs Temp Pulse Resp BP Pulse Ox O2 Del Method 10/22/23 22:04 36.4 C L 99 H 16 140/80 99 Room Air Supervising Physician Co-Signing Physician Notes pnt d/w VONDA Pérez, agree with above. S/P mastectomy, now with hematoma. Flaps viable and not rapidly expanding. Admitted for pain control, hold a/c, monitor, [facility] surgery will take over in AM. PG Care Time/CCT Total # of Minutes Spent Total Time Spent with Patient: Total time spent is greater than 50% in coordination of care (as documented) at patient's floor/unit and/or counseling patient: Coding Level of Care Code 90534 INT INP/OBS CARE MIN Diagnoses Chest wall hematoma S20.219A
[2023-10-22] MEDS ORDERED: ONDANSETRON INJ 2 MG/ML 2 ML VIAL IV PRN (23:09)
[2023-10-22 23:16] LABS: BUN Creatinine Ratio 18.5 (10-20); Calcium 9.6 mg/dl (8.6-10.3); Creatinine Clr Calc Pharmacy 49.7 ml/min; Est GFR (African American) 72.1 ml/min; Est GFR (Non-African American) 62.2 ml/min; Potassium 3.6 mmol/L (3.5-5.1)
[2023-10-22] MEDS: MoRPHine SULFATE 4 MG/ML 1 ML CARP\\VIAL IV PRN (23:24)
[2023-10-22] MEDS: SODIUM CHLORIDE 0.9% 1,000 ML IV SCH (23:27)
[2023-10-22] MEDS: ACETAMINOPHEN 1,000 MG/100 ML VIAL IV PRN (23:45)
[2023-10-22] MEDS: DOXYCYCLINE HYCLATE 100 MG CAP PO STA (23:46)
[2023-10-22 23:47] LABS: INR 0.9 (0.9-1.1); Partial Thromboplastin Ratio 1.1; Partial Thromboplastin Time 29 Seconds (21-31); Prothrombin Time 10.3 Seconds (9.0-12.0)
--- OUTSIDE RECORDS SUMMARY | 2023-10-23 01:33 | External Medical Summary | Summary of Care ---
Author Name Unknown Organization [facility] Address [address] [address] Phone [phone] Care Team Providers Care Machine Leather Trimmer Name Role Phone Charlene York Primary Care Provider Reason for Visit * Reason Onset Date Comments Advice 10/21/2023 Rash noted on angelica dy, post surgery Encounter Details Date Type Department Care Team (Late st Contact Info) Description 10/21/2023 Telephone General [facility], [facility] [place] [id number] Sol Sol MD [address] [facility] [place] [id number] Advice (Rash noted on body, post surgery) Allergies No known active allergiesdocumented as of this encounter (statuses as of 10/22/2023) Medications Medication Sig Dispensed Refills Start Date [...] each chemo cycle 72 Tablet 06/11/2023 Active Additional Information Patient not taking.Reported on 09/25/2023 Prochlorperazine Maleate 10 MG Oral Tablet (Compazine)Indicati ons:Malignant neoplasm of upper-outer quadrant of right breast in female, estrogen receptor positive (HCC) Take 1 Tablet by mouth every 6 hours as needed for Nausea. 60 Tablet 2 06/11/2023 Active Additional Information Patient not taking.Reported on 08/28/2023 Ondansetron HCl 8 MG Oral TabletIndications:M alignant neoplasm of upper-outer quadrant of right breast in female, estrogen receptor positive (HCC) Take 1 Tablet by mouth every 8 hours as needed for Nausea. 30 Tablet 3 08/11/2023 Active Additional Information Patient not taking.Reported on 08/28/2023 Apixaban 5 MG Oral Tablet (Eliquis) Take 1 Tablet by mouth in the morning and 1 Tablet before bedtime. 60 Tablet 1 09/25/2023 Active Doxycycline Hyclate 100 MG Oral Capsule Take 1 Capsule by mouth in the morning and 1 Capsule before bedtime. Do all this for 14 days. 28 Capsule 10/13/2023 10/27/2023 Active HYDROcodone-Acetami nophen 5-325 MG Oral Tablet Take 1 Tablet by mouth every 6 hours as needed for Pain, Moderate. 10 Tablet 10/19/2023 Active Nitroglycerin 2 % Transdermal Ointment (Nitro-Bid) Place 0.5 Inches topically on the skin in the morning and 0.5 Inches before bedtime. Apply to mid portion of left chest wall incision. Wipe off if headache.. 30 g 10/19/2023 Active documented as of this encounter (statuses as of 10/22/2023) Active Problems Problem Noted Date Diagnosed Date Malignant neoplasm of upper- inner quadrant of right breast in female, estrogen receptor positive 10/06/2023 Clostridium difficile diarrhea 08/28/2023 MSSA bacteremia 08/28/2023 Septic thrombophlebitis 08/28/2023 Acute thrombosis of right internal jugular vein 08/28/2023 Change of skin related to chemotherapy Chemotherapy-induced [...] as of this encounter (statuses as of 10/22/2023) Resolved Problems Problem Noted Date Diagnosed Date Resolved Date Impacted cerumen 03/11/2023 Otitis media 03/11/2023 documented as of this encounter (statuses as of 10/22/2023) Immunizations Name Administration Dates Next Due SARS-COV-2 [...] Telephone Encounter - Sol Sol MD - 10/22/2023 8:54 AM EDT Spoke to patient. On neck, upper chest and stomach. Likely from the cleansing solution. Discussed claritin/ bijal during day and benadryl/ xyzal at night. Pepcid if those don't work. Has more clots on right side (on eliquis). Asked her to strip drain. If has trouble with leakage, can come in for nurse visit. * Telephone Encounter - Kristine Aguilar LPN - 10/21/2023 3:55 PM EDT Bridgette, Patient calling back, asking what she should do about this rash. Red, slightly warm, What do you think, pt stating that the rash started yesterday. Pt wondering what she could do for it- she thinks it could be from the wipes that they gave her to cleanse off with. Because of her age, I was concerned about telling her to take the benadryl. She has some aveeno cream she said that she was going to try. Could she also try something like Claritin and pepcid( h2 trav)? * Telephone Encounter - Kristine Aguilar LPN - 10/21/2023 8:29 AM EDT Called pt to do her 72 hour nurse call follow up, pt stating that she has a rash on her neck, upperchest , stomach area- happened after surgery. Pt not sure what it is or what it is from. Did you just want her to try to apply some hydrocortisone? Did you want her to take benadryl. I asked her to try and send us a picture, but she is not sure she knows how to do that with her MYG. Please advise, no s/s of infection noted. documented in this encounter Plan of Treatment Upcoming Encounters Date Type Department Care Team (Late st Contact Info) Description 11/03/2023 9:00 AM EDT Office Visit General Surgery, [facility] [address] [facility] [place] [id number] Sol [facility] [address] [facility] [place] [address] 11/05/2023 7:40 AM EDT Office Visit Family Practice [facility] [address] [facility] [place] [address] Charlene York CRNP [address] [facility] [place] [address] 11/10/2023 11:15 AM EDT Office Visit Hematology/Oncology [facility] [address] [facility] [place] [address] Faustino Sharif MD [address] [place] [address] Health Maintenance Due Date Last Done Comments Pneumococcal Vaccine: 65+ Years (1 of 2 - PCV) 06/16/1956 Depression Screening 1963 Hepatitis C Screening 06/16/1969 Zoster Vaccines (1 of 2) 06/16/1970 Cologuard 06/16/1996 Colonoscopy 06/16/1996 Colorectal Cancer Screening 06/16/1996 Fecal Occult Blood Test 06/16/1996 Sigmoidoscopy 06/16/1996 Adult Wellness Visit 06/16/2017 COVID-19 Vaccine ( season) 2023 02/03/2023, 06/04/2020, 05/03/2020 Influenza Vaccine (FLU shot) (#1) 2023 12/15/2013, 03/23/2013, 01/20/2006, Additional history exists DXA Scan 07/26/2027 07/25/2020 Lipid Panel 03/11/2028 03/11/2023 DTap/Tdap Vaccines (3 - Td or Tdap) 03/11/2033 03/11/2023, 06/30/2012 HPV (Gardasil) Vaccine Aged Out No lo nger eligible based on patient's age to complete this topic Hepatitis B Vaccine Aged Out No longe r eligible based on patient's age to complete this topic MENINGOCOCCAL (MENACTRA/MENVEO) Aged Out No longer eligible based on patient's age to complete this topic documented as of this encounter Medical Devices Implanted Type Area Orthodontic Technician Assistant Device Identifier Shelf Expiration Date Model / Serial / Lot Power Port 8fr Sngl Lumen Plas - [id number] Implanted:Qty : 1 on 07/08/2023 by Naun Ratliff MD at OR [facility] Right: Chest CR BARD : PERIPHERAL VASCULAR [id number] 10/23/2024 [id number] / / [id number] documented as of this encounter Advance Directives * Full Code (Latest Code Status on File) Date Activated Date Inactivated Comments 10/19/2023 8:29 AM 10/19/2023 7:46 PM This order r eflects the patients wishes and were consensually agreed upon. Question Answer Comments Discussion of Advance Directives occurred with: Patient Care Teams Machine Leather Trimmer Relationship Specialty Start Date End Date Charlene York CRNP [address] [place] [address] PCP - General Nurse Practitioner 03/11/23 documented as of this encounter
--- OUTSIDE RECORDS SUMMARY | 2023-10-23 01:34 | External Medical Summary | Summary of Care ---
Author Name Unknown Organization [facility] Address [address] [address] Phone [phone] Care Team Providers Care Organizational Effectiveness Director Name Role Phone Charlene York Primary Care Provider Reason for Visit * Reason Onset Date Comments Follow Up 10/21/2023 10/19/2023 simple mastectomy Encounter Details Date Type Department Care Team (Late st Contact Info) Description 10/21/2023 9:45 AM EDT Scheduled [facility]phone [facility] [address] [facility] [place] [address] Nurse Waldemar Gen Surg [facility] [address] [facility] [place] [address] Arrived Allergies No known active allergiesdocumented as of this encounter (statuses as of 10/21/2023) Medications Medication Sig Dispensed Refills Start Date [...] as of this encounter (statuses as of 10/21/2023) Active Problems Problem Noted Date Diagnosed Date [...] as of this encounter (statuses as of 10/21/2023) Resolved Problems Problem Noted Date Diagnosed Date Resolved Date Impacted cerumen 03/11/2023 Otitis media 03/11/2023 documented as of this encounter (statuses as of 10/21/2023) Immunizations Name Administration Dates Next Due SARS-COV-2 [...] encounter Miscellaneous Notes * Telephone Encounter - Kristine Aguilar LPN - 10/21/2023 8:16 AM EDT Patient identified by name and date of . Chief Complaint Patient presents with Follow Up 10/19/2023 simple mastectomy PATIENT IS S/p simple mastectomy on 10/19/[address] austin sol Pain Level- no, just some discomfort Meds being taken for pain- taking tylenol Are pain meds effective- are effective, doesn't need anything stronger at this time Incision sites- rash is on the chest and stomach, no fever, no chills, no night sweats, no drainagethat she is aware of from her incision sites Does the patient have a drain- does have a drains - one in the left and one in the right, pt is emptying these once every 24 hours. Does the patient have dressings? Are they aware of dressing instructions- yes, has steri strips on and a dry drsg overtop that she applied Appetite- good Nausea/vomiting- none Bowel movement- had some gas and one BM. Activity- pt is up and moving around Complying with activity restrictions- yes Coughing and deep breathing- yes Questions or concerns- none Post operative follow up scheduled for 11/03/2023 Pt does have a rash noted on her chest, upper chest, her neck and below her bra on her stomach. Perpt very itchy. documented in this encounter Plan of Treatment Upcoming Encounters Date Type Department Care Team (Late st Contact Info) Description 11/03/2023 9:00 AM EDT Office Visit General Surgery, [facility] [address] [place] [address] Austin Sol MD [address] [place] [address] 11/05/2023 7:40 AM EDT Office Visit Family Practice [facility] [address] [place] [address] Charlene York CRNP [address] [place] [address] 11/10/2023 11:15 AM EDT Office Visit Hematology/Oncology [facility] 200 [facility] [place] [id number] Faustino Sharif MD 200 [facility] [place] [address] Health Maintenance Due Date Last Done Comments [...] this encounter Medical Devices Implanted Type Area Media Senior Recruiter Device Identifier Shelf Expiration Date Model / Serial / Lot Power Port 8fr Sngl Lumen Plas - [id number] Implanted:Qty : 1 on 07/08/2023 by Naun Ratliff MD at OR [facility] Right: Chest CR BARD : PERIPHERAL VASCULAR [id number] 10/23/2024 [id number] / / [id number] documented as of this encounter Advance Directives * Full Code (Latest Code Status on File) Date Activated Date Inactivated Comments 10/19/2023 8:29 AM 10/19/2023 7:46 PM This order r eflects the patients wishes and were consensually agreed upon. Question Answer Comments Discussion of Advance Directives occurred with: Patient Care Teams Organizational Effectiveness Director Relationship Specialty Start Date End Date Charlene York CRNP [address] [place] [address] PCP - General Nurse Practitioner 03/11/23 documented as of this encounter
--- OUTSIDE RECORDS SUMMARY | 2023-10-23 01:34 | External Medical Summary | Summary of Care ---
Author Name Unknown Organization [facility] Address [address] [address] Phone [phone] Care Team Providers Care Repairer Resistance Welding Machines Name Role Phone Charlene York Primary Care Provider Reason for Visit * Reason Onset Date Comments Advice 10/21/2023 Rash noted on angelica dy, post surgery Encounter Details Date Type Department Care Team (Late st Contact Info) Description 10/21/2023 Telephone General Surgery, [facility] [place] [address] Sol Sol MD 132 [facility] [place] [address] Advice (Rash noted on body, post surgery) [...] 9:45 AM EDT Scheduled Telephone General Surgery, [facility] [address] [place] [address] Waldemar Nurse Gen Surg [facility] [address] [place] [address] Arrived 11/03/2023 9:00 AM EDT Office Visit General Surgery, [facility] [address] [place] [address] Sol Sol MD [address] [place] [address] 11/05/2023 7:40 AM EDT Office Visit Family Practice [facility] [address] [place] [address] Charlene York CRNP [address] [place] [address] 11/10/2023 11:15 AM EDT Office Visit Hematology/Oncology [facility] [place] 200 [facility] [place] [phone] Faustino Sharif MD 200 [facility] [place] [address] Health Maintenance Due Date Last Done Comments [...] this encounter Medical Devices Implanted Type Area Stained Glass Joiner Device Identifier Shelf Expiration Date Model / Serial / Lot Power Port 8fr Sngl Lumen Plas - [id number] Implanted:Qty : 1 on 07/08/2023 by Naun Ratliff MD at OR [facility] Right: Chest CR BARD : PERIPHERAL VASCULAR [id number] 10/23/2024 [id number] / / [id number] documented as of this encounter Advance Directives * Full Code (Latest Code Status on File) Date Activated Date Inactivated Comments 10/19/2023 8:29 AM 10/19/2023 7:46 PM This order r eflects the patients wishes and were consensually agreed upon. Question Answer Comments Discussion of Advance Directives occurred with: Patient Care Teams Repairer Resistance Welding Machines Relationship Specialty Start Date End Date Charlene York CRNP [address] [place] [address] PCP - General Nurse Practitioner 03/11/23 documented as of this encounter
--- OUTSIDE RECORDS SUMMARY | 2023-10-23 01:34 | External Medical Summary | Summary of Care ---
Author Name Unknown Organization [facility] Address [address] [address] Phone [phone] Care Team Providers Care Team Assistant Name Role Phone Charlene York Primary Care Provider Reason for Visit * Reason Onset Date Comments Advice 10/21/2023 Rash noted on angelica dy, post surgery Encounter Details Date Type Department Care Team (Late st Contact Info) Description 10/21/2023 Telephone General Surgery, [facility] [place] [address] Sol Sol MD 132 [facility] [place] [address] Advice (Rash noted on body, post surgery) [...] she thinks it could be from the whips that they gave her to cleanse off [...] 9:00 AM EDT Office Visit General Surgery, [facility] [address] [place] [address] Sol Sol MD [address] [place] [address] 11/05/2023 7:40 AM EDT Office Visit Family Practice [facility] [address] [place] [address] Charlene York CRNP [address] [place] [address] 11/10/2023 11:15 AM EDT Office [facility] [place] 200 [facility] [place] [phone] Faustino Sharif MD 200 [facility] [place] [address] Health Maintenance Due Date Last Done Comments [...] this encounter Medical Devices Implanted Type Area Informal Waiter/Waitress Device Identifier Shelf Expiration Date Model / Serial / Lot Power Port 8fr Sngl Lumen Plas - [id number] Implanted:Qty : 1 on 07/08/2023 by Naun Ratliff MD at OR [facility] Right: Chest CR BARD : PERIPHERAL VASCULAR [id number] 10/23/2024 [id number] / / [id number] documented as of this encounter Advance Directives * Full Code (Latest Code Status on File) Date Activated Date Inactivated Comments 10/19/2023 8:29 AM 10/19/2023 7:46 PM This order r eflects the patients wishes and were consensually agreed upon. Question Answer Comments Discussion of Advance Directives occurred with: Patient Care Teams Team Assistant Relationship Specialty Start Date End Date Charlene York CRNP [address] [place] [address] PCP - General Nurse Practitioner 03/11/23 documented as of this encounter
--- OUTSIDE RECORDS SUMMARY | 2023-10-23 01:34 | External Medical Summary | Summary of Care ---
Author Name Unknown Organization [facility] Address [address] [facility] [place] [address] Phone [phone] Care Team Providers Care Padding Machine Operator Name Role Phone Charlene York Primary Care Provider Reason for Visit * Reason Onset Date Comments Advice 10/21/2023 Rash noted on angelica dy, post surgery Encounter Details Date Type Department Care Team (Late st Contact Info) Description 10/21/2023 Telephone General Surgery, [facility] [place] [address] Sol Sol MD 132 [facility] [place] [address] Advice (Rash noted on body, post surgery) [...] 9:00 AM EDT Office Visit General Surgery, [facility] [address] [place] [address] Sol Sol MD [address] [place] [address] 11/05/2023 7:40 AM EDT Office Visit Family Practice [facility] [address] [place] [address] Charlene York CRNP [address] [place] [address] 11/10/2023 11:15 AM EDT Office Visit [facility] [place] [facility] [place] [phone] Faustino Sharif MD 200 [facility] [place] [address] Health Maintenance Due Date Last Done Comments [...] this encounter Medical Devices Implanted Type Area Reporting Consultant Device Identifier Shelf Expiration Date Model / Serial / Lot Power Port 8fr Sngl Lumen Plas - [id number] Implanted:Qty : 1 on 07/08/2023 by Naun Ratliff MD at OR [facility] Right: Chest CR BARD : PERIPHERAL VASCULAR [id number] 10/23/2024 [id number] / / [id number] documented as of this encounter Advance Directives * Full Code (Latest Code Status on File) Date Activated Date Inactivated Comments 10/19/2023 8:29 AM 10/19/2023 7:46 PM This order r eflects the patients wishes and were consensually agreed upon. Question Answer Comments Discussion of Advance Directives occurred with: Patient Care Teams Padding Machine Operator Relationship Specialty Start Date End Date Charlene York CRNP [address] [place] [address] PCP - General Nurse Practitioner 03/11/23 documented as of this encounter
--- OUTSIDE RECORDS SUMMARY | 2023-10-23 01:34 | External Medical Summary ---
Author Name Unknown Address Unknown Organization : Laboratory Report Ordering Provider Test Date Status KANDY CAMPA 10/19/2023 10:28:31 Final Observation Date Value Abnormality Reference (Units ) Status Glucose Point of Care 10/19/2023 10:28:31 119 70-120 (mg/dL) Final Performing Location
--- OUTSIDE RECORDS SUMMARY | 2023-10-23 01:34 | External Medical Summary | Summary of Care ---
Author Name Unknown Organization [facility] Address [address] [facility] [address] Phone [phone] Care Team Providers Care Microsoft Bi Developer Name Role Phone Charlene York Primary Care Provider Reason for Visit * Reason Onset Date Comments Advice 10/21/2023 Rash noted on angelica dy, post surgery Encounter Details Date Type Department Care Team (Late st Contact Info) Description 10/21/2023 Telephone General Surgery, [facility] [place] [address] Sol Sol MD 132 [facility] [place] [address] Advice (Rash noted on body, post surgery) [...] 9:00 AM EDT Office Visit General Surgery, [facility] 132 [facility] [place] [address] Sol Sol MD [facility] [place] [address] 11/05/2023 7:40 AM EDT Office Visit Family Practice [facility] 132 [facility] [place] [address] Charlene York CRNP 132 [facility] [place] [address] 11/10/2023 11:15 AM EDT Office Visit Hematology/Oncology [facility] 200 [facility] [place] [address] Faustino Sharif MD 200 [place] [address] Health Maintenance Due Date Last Done Comments [...] this encounter Medical Devices Implanted Type Area Pipe Coverer Device Identifier Shelf Expiration Date Model / Serial / Lot Power Port 8fr Sngl Lumen Plas - [id number] Implanted:Qty : 1 on 07/08/2023 by Naun Ratliff MD at [facility] Right: Chest CR BARD : PERIPHERAL VASCULAR [id number] 10/23/2024 [id number] / / [id number] documented as of this encounter Advance Directives * Full Code (Latest Code Status on File) Date Activated Date Inactivated Comments 10/19/2023 8:29 AM 10/19/2023 7:46 PM This order r eflects the patients wishes and were consensually agreed upon. Question Answer Comments Discussion of Advance Directives occurred with: Patient Care Teams Microsoft Bi Developer Relationship Specialty Start Date End Date Charlene York CRNP [address] [place] [address] PCP - General Nurse Practitioner 03/11/23 documented as of this encounter
--- OUTSIDE RECORDS SUMMARY | 2023-10-23 01:34 | External Medical Summary | Summary of Care ---
Author Name Unknown Organization [facility] Address [address] [place] [address] Phone [phone] Care Team Providers Care Seismic Prospecting Observer Name Role Phone Charlene York Primary Care Provider Reason for Referral * Precert (Within 10 days (routine)) - Authorized Specialty Diagnoses / Procedures Referred By Annabelle martines Referred To Contact Radiology Diagnoses Malignant neoplasm of upper-inner quadrant of right breast in female, estrogen receptor positive (HCC) Preoperative examination Procedures NM BREAST LYMPH GLAND TECH INJECTION Sol Sol MD [address] [facility] [place] [address] Referral ID Status Reason Start Date Expiration Date V isits Requested Visits Authorized [id number] Authorized 10/14/2023 [id number] Reason for Visit * Auth/Cert Specialty Diagnoses / Procedures Referred By Annabelle martines Referred To Contact Diagnoses Malignant neoplasm of upper-inner quadrant of right breast in female, estrogen receptor positive (HCC) Malignant neoplasm of upper-inner quadrant of right breast in female, estrogen receptor positive (HCC) [C50.211, Z17.0] Procedures MASTECTOMY, SIMPLE, COMPLETE BX LYMPH NODE DEEP AXIL IDENTIFY SENTINEL NODE, RADIOACTIVE TRACER MASTECTOMY SIMPLE COMPLETE BIOPSY LYMPH NODE DEEP AXILLARY OPEN INJECTION PROCEDURE FOR IDENTIFICATION SENTINEL NODE Sol Sol MD [address] [facility] [place] [address] [place] [address] [place] [address] Referral ID Status Reason Start Date Expiration Date Visits Re quested Visits Authorized [id number] Encounter Details Date Type Department Care Team (Latest Contact Info) Description 10/19/2023 7:04 AM EDT - 10/19/2023 3:40 PM EDT Hospital Encounter [facility], Operating Room, [facility] - 4th Floor [address] [place] [address] Sol Sol MD [address] [place] [address] Discharge Disposition: Home - Self Care Allergies No known active allergiesdocumented as of this encounter (statuses as of 10/20/2023) Medications Medication Sig Dispensed Refills Start Date End Date Status FOLIC ACID 1 MG OR TABS 1 TABLET DAILY 0 0 5 Active MOBIC 7.5 MG PO TABS One pill by mouth once a day for pain as needed 8 Active Methotrexate 2.5 MG Oral Tablet Take by mouth once a week. 6 tablets once a week Active Calcium 600-10 MG-MCG Oral Tablet Chewable Take by mouth 2 times a day. Active Orencia 250 MG Intravenous Solution Reconstituted (Abatacept) Administer intravenously. Active dexAMETHasone 4 MG Oral TabletIndications :Malignant neoplasm of upper-outer quadrant of right breast in female, estrogen receptor positive (HCC) Take 2 tablets twice a day, starting on the previous day of the treatment for total 3 days and repeat with each chemo cycle 72 Tablet 4 Active Additional Information Patient not taking.Reported on 09/25/2023 Prochlorperazine Maleate 10 MG Oral Tablet (Compazine)Indica tions:Malignant neoplasm of upper-outer quadrant of right breast in female, estrogen receptor positive (HCC) Take 1 Tablet by mouth every 6 hours as needed for Nausea. 60 Tablet 2 4 Active Additional Information Patient not taking.Reported on 08/28/2023 Ondansetron HCl 8 MG Oral TabletIndications :Malignant neoplasm of upper-outer quadrant of right breast in female, estrogen receptor positive (HCC) Take 1 Tablet by mouth every 8 hours as needed for Nausea. 30 Tablet 3 4 Active Additional Information Patient not taking.Reported on 08/28/2023 Apixaban 5 MG Oral Tablet (Eliquis) Take 1 Tablet by mouth in the morning and 1 Tablet before bedtime. 60 Tablet 1 4 Active Doxycycline Hyclate 100 MG Oral Capsule Take 1 Capsule by mouth in the morning and 1 Capsule before bedtime. Do all this for 14 days. 28 Capsule 4 10/27/19 24 Active HYDROcodone-Aceta minophen 5-325 MG Oral Tablet Take 1 Tablet by mouth every 6 hours as needed for Pain, Moderate. 10 Tablet 4 Active Nitroglycerin 2 % Transdermal Ointment (Nitro-Bid) Place 0.5 Inches topically on the skin in the morning and 0.5 Inches before bedtime. Apply to mid portion of left chest wall incision. Wipe off if headache.. 30 g 4 Active ceFAZolin Sodium 1 GM Injection Solution Reconstituted (Ancef) Inject 1 g intravenously in the morning and 1 g at noon and 1 g before bedtime. 4 10/19/19 24 Discontinued Nitroglycerin 2 % Transdermal Ointment (Nitro-Bid) Place 0.5 Inches topically on the skin in the morning and 0.5 Inches before bedtime. Dilute with petrolatum to a concentration of 0.2%. Apply externally only in a thin layer. Wipe off if headache. Apply to left chest wall near mid portion of incision starting tomorrow.. 60 g 4 10/19/19 24 Discontinued Nitroglycerin 2 % Transdermal Ointment (Nitro-Bid) Place 0.5 Inches topically on the skin every 6 hours - apply to left chest wall near mid portion of incisoin. 60 g 4 10/19/19 24 Discontinued documented as of this encounter (statuses as of 10/20/2023) Active Problems Problem Noted Date Diagnosed Date Malignant neoplasm of upper- inner quadrant of right breast in female, estrogen receptor positive 10/06/2023 Clostridium difficile diarrhea 08/28/2023 MSSA bacteremia 08/28/2023 Septic thrombophlebitis 08/28/2023 Acute thrombosis of right internal jugular vein 08/28/2023 Change of skin related to chemotherapy 4 [...] as of this encounter (statuses as of 10/20/2023) Resolved Problems Problem Noted Date Diagnosed Date Resolved Date Impacted cerumen 03/11/2023 Otitis media 03/11/2023 documented as of this encounter (statuses as of 10/20/2023) Immunizations Name Administration Dates Next Due SARS-COV-2 [...] Sign Reading Time Taken Comments Blood Pressure 113/65 10/19/2023 3:30 PM EDT Pulse 76 10/19/2023 3:30 PM EDT Temperature 36 C (96.8 F) 10/19/2023 3:30 PM EDT Respiratory Rate 16 10/19/2023 3:30 PM EDT Oxygen Saturation 96% 10/19/2023 3:30 PM EDT Inhaled Oxygen Concentration - - Weight 61.2 kg (135 lb) 10/19/2023 7:11 AM EDT Height 165.1 cm (5' 5") 10/19/2023 7:11 AM EDT Body Mass Index 22.47 10/19/2023 7:11 AM EDT documented in this encounter Discharge Instructions * Discharge Instr - AVS* Sol Sol MD - 10/19/2023 8:02 AM EDT Images from the original note were not included. Incision Care: If present, remove any outer dressing(s) in 24 hours. The incision(s) may be sealed with a skin adhesive (Dermabond) or covered with white adhesive tapes known as steri-strips. Either way, there is no need to cover up the incisions again with gauze unless it is more comfortable. The drain sites should be covered again with gauze or bandaids. Shower: You may shower 24 hours after surgery and get the incision(s) or steri-strips wet with soapy water and gently pat them dry. If the steri-strips come off in the shower, do not become concerned. If they are still in place 10 days after surgery, you may remove them. Drain: Place a waterproof bandaid at drain site while in shower. Dry around it and cover with dry bandage daily after shower. It may help to hang the drains on a lanyard while in the shower. WOLF output - keep track over 24 hrs periods. Strip OWLF's daily. Call when drain output is < 30 cc/ 24 hrs for 2 consecutive days. The WOLF drain works under suction (when it is squeezed). As it fills, the suction releases. When this happens, empty the drain and the resqueeze and close to reactivate the suction. Pain Medication: You may be given a prescription for a narcotic pain medication (either [place] or Percocet). Options for non-constipating pain medications include products that include Ibuprofen or Tylenol. To combat constipation, you may take ryta-gub-ypejefo laxatives, fiber therapy, or prune juice. Activity: Rest today. Do not do any heavy lifting (more than 5-10 pounds) or vigorous exercise for 1-2 weeks.After that you may resume normal activities. Do arm exercises (10 reps each time/ a few times per day) as discussed. Diet: You can eat anything you desire. If your throat is sore, try eating soft foods. Physician Appt: If you have not already scheduled your appointment for a post-operative visit, please call [phone] to do so. You may leave a message and we will return your call. Biopsy Results: It normally takes 4-5 working days for the pathology lab to process the biopsy. Call in 1 wk to review biopsy results. Exercises After Breast Surgery: Ball Squeeze, Arm Cross, Broom Stretch As you recover from breast surgery, your doctor will tell you when it is safe to begin exercising, what kind of exercises you can do, and how much exercising you should do. Your goal will be to regain normal range of motion and use of your arm. For your safety, use this handout only as directed by your doctor or physical therapist. [] Ball squeeze While standing, sitting, or lying down, hold a rubber ball in your hand on the operated side. Keep your arm slightly bent, with your palm toward the ceiling. Lift your hand higher than your heart. Squeeze and relax the ball. Repeat 10 times. [] Arm cross Stand with elbows bent and raised to shoulder level. Cross one arm on top of the other arm. Touch your elbows with your fingers. Push your elbows backward, squeezing your shoulder blades together. Repeat 10 times. [] Broom stretch Place the hand on your operated side over the end of a stick (a broom or cane will work). Grasp farther down the stick with your other hand, palm down. Gently but firmly, push the end of the stick as high as you comfortably can. Hold this position for15 seconds. Return to starting position. Repeat 10 times. Exercises After Breast Surgery: Wall Climb, Chicken Wing As you recover from breast surgery, your healthcare provider will tell you when it is safe to beginexercising, what kind of exercises you should do, and how much exercise you should do. Your goal will be to regain normal range of motion and use of your arm. For your safety, use this handout only as directed by your healthcare provider or physical therapist. [] Wall climb Follow these steps: Stand and face a wall, with your toes 4 to [address] your forearms against the wall, hands at eye level. Walk your hands up the wall, keeping palms parallel. Stop if you feel pulling or pain. Hold the stretch for 15 to 20 seconds. Move your hands back down the wall. Repeat 10 times. As you improve, stand closer to the wall. [] Chicken wing Follow these steps: With elbows straight, clasp your fingers in front of you. Raise your arms slowly over your head. Keeping your fingers clasped, put your hands behind your neck. Pull your elbows in until they touch at chin level. (Unclasp your fingers if you need to.) Repeat 10 times. documented in this encounter Progress Notes * Thomas Fox RPh - 10/19/2023 1:20 PM EDT PHARMACY DISCHARGE MEDICATION RECONCILIATION REVIEW [address] [address] Name: Sue Rivas Location: [facility] Date: 10/19/2023 Time: 1:19 PM This discharge medication reconciliation was reviewed by a pharmacist and had the following interventions made: Number of medication instructions modified: 1 The discharge medication reconciliation has been updated and is complete and ready for discharge. * Sol Sol MD - 10/19/2023 12:45 PM EDT [address] [address] OUTPATIENT SURGERY DISCHARGE SUMMARY NOTE Name: Sue Rivas Location: [facility] Date: 10/19/2023 Time: 12:45 PM Surgery Date: 10/19/2023 Procedure: MASTECTOMY SIMPLE COMPLETE, BIOPSY LYMPH NODE DEEP AXILLARY OPEN, INJECTION PROCEDURE FOR IDENTIFICATION SENTINEL NODE Bilateral Bilateral Bilateral Surgeon: Sol Sol MD Discharge Diagnosis: s/p mastectomies After examination of this patient, I have determined she is ready for discharge to home when the patient meets criteria. Discharge instructions were given to the patient. * Chuy Cee RPh - 10/19/2023 8:09 AM EDT PHARMACY DISCHARGE MEDICATION RECONCILIATION REVIEW [address] [address] Name: Sue Rivas Location: [facility] Date: 10/19/2023 Time: 8:09 AM This discharge medication reconciliation was reviewed by a pharmacist and no corrections or interventions were required. documented in this encounter H&P Notes * Sol Sol MD - 10/19/2023 7:59 AM EDT HISTORY & PHYSICAL INTERVAL NOTE - General Surgery [address] [address] History and Physical Update: Name: Sue Rivas Location: [facility]/[place] Date: 10/19/2023 Time: 7:59 AM DATE OF HISTORY AND PHYSICAL: 10/13/23 BP: 131 mmHg/68 mmHg (10/19/23 0711) Pulse: 81 (10/19/23710) Resp: 16 (10/19/23710) Temp: 35.72 C (10/19/23710) Temp Summary: Temp Min: 35.7 C (96.3 F) Max: 35.7 C (96.3 F) SpO2: 100 % (10/19/23710) O2 flow rate: Supplemental O2 Delivery: Room Air, None (10/19/23710) Does patient take a beta trav? No Did patient stop anticoagulants: Yes Heart Exam: regular rate and rhythm, no murmurs or gallops Lung Exam: clear to auscultation bilaterally Other Pertinent Physical Exam: none I have reviewed the H&P previously performed and examined the patient today. There are no new findings noted. Source Note - Sol Sol MD - 10/13/2023 4:27 PM EDT [facility] SUR[facility]ERY F/U BREAST CANCER CLINIC NOTE Chief Complaint Patient presents with Follow Up Update H/P right breast Ca. REASON FOR CONSULTATION: Right Breast Cancer Clinical Stage 2- T2N0, triple positive s/p 2 cycles of neoadjuvant chemo with poor tolerance HPI: Sue Rivas is a 73 year old female who is here to review next steps following an attempt at neoadjuvant chemotherapy. She has undergone two cycles of neoadjuvant chemo for multicentric right breastcancer, largest tumor 2.2 cm, triple positive. Clinically node negative. She developed a port site infection - Staphylococcus aureus bacteremia in association with right IJ DVT- and was hospitalized and needed antibiotics for 6 weeks. She is on eliquis since 08/15/23She notes she was quite sick and is now fearful of any further risk of infection. While previously she had been considering reconstruction and had met with plastic surgery, she has now decided against reconstruction. Port has been removed. She desires bilateral mastectomies. She has received 2 cycles of TCH-P. Met with oncology yesterday and recommendation is to proceed with surgery. Last chemo was 08/04/23. Port has been removed. Right arm strength and range of motion isfine. No arm swelling. Originally she was referred by DIMITRI[facility] Brown [...] receptor status is positive. HER-2/myrna receptors positive. Her MRI breast was done and showed: 1) left side has a 8.7 mm area of NME. Targeted US negative. MRI biopsy was not done as pt decided on bilateral mastectomies. 2) right side shows known cancer (2.2 cm) and at least three satellite lesions all within 2 cm in all directions. She is a B cup size. Satellite lesions were mammographically occult so would need MR screening going forward. A. Right breast, mass, core biopsy: Invasive carcinoma, 1:00 mass 8 cm from nipple no special type (NST), grade 3 at 1530 Final Diagnosis Comment Order Comments Ultrasound guided core biopsy of right breast 1:00 8 cmfn hypoechoic suspicious mass, rule out carcinoma Gross Description A. Breast, Right. Received in formalin with a container labeled with "Sue Rivas", "[id number]", "1950" and " right breast one o'clock [...] specimen is 0.9 cm. Breast, right, Block [id number]: A. Right breast, mass, core biopsy: Invasive carcinoma, 1:00 mass 8 cm from nipple no special type (NST), grade 3 Estrogen Receptor (ER) protein expression is MODERATELY POSITIVE 50% nuclear positivity 2+ average intensity score (range 0 to 3+) Progesterone Receptor (AL) protein expression is STRONGLY POSITIVE 95% nuclear positivity 3+ average intensity score (range 0 to 3+) HER2 oncoprotein expression is POSITIVE ( 3+ average membranous intensity, > 10% of invasive tumor cells) complete weak/moderate membrane staining in >10% of the invasive tumor cells) to be tested by in-situ hybridization with results to follow in an addendum Case/Block [id number] Adequacy Adequate cellular specimen Interpretation AMPLIFIED for HER2 gene status BREAST ROS: No severe breast pain, No nipple discharge, and No recent change in shape/color Can no longer feel the breast mass. GYNECOLOGIC HISTORY: LMP: No LMP recorded. Patient [...] The exam was interpreted in conjunction with [employer] software with kinetic and morphologic analysis and [...] medial, anterior to the biopsy-proven carcinoma. A 4x 6 mm enhancing mass with persistent kinetics [...] breast ultrasound 04/15/2023. TECHNIQUE ANESTHESIA: 1% lidocaine CLINICAL EDUCATION ACADEMIC COORDINATOR: Dr. Duong was present for and performed [...] by Dr. Duong in the presence of electro mechanical technologist and it was confirmed that procedure [...] core biopsy needle. A spring activated/ automated Genymobileera biopsy device was utilized. Under direct sonographic [...] ovarian cancer: None Family History Problem Relation Name Age of [...] performed by Naun Ratliff MD at [facility] LAPAROSCOPY; CHOLECYSTECTOMY 12/01/2007 Dr Bergeron at [facility] LIGATE/CUT OVIDUCT(S) AT SURGERY AL ARTHROSCOPY KNEE DIAGNOSTIC W/WO SYNOVIAL BX SPX Right 2004 RIGHT SHOULDER rc [facility]pair AL ARTHRP KNE CONDYLE&PLATU MEDIAL&LAT COMPARTMENTS Left 2019 [facility] [place] ortho US GUIDED BREAST BIOPSY RIGHT Right 04/29/2023 CURRENT OUTPATIENT PRESCRIPTIONS: Current Outpatient Medications Medication Sig Dispense Refill Doxycycline Hyclate 100 MG Oral Capsule Take 1 Capsule by mouth in the morning and 1 Capsule beforebedtime. Do all this for 14 days. 28 Capsule 0 FOLIC ACID 1 MG OR TABS 1 TABLET DAILY 0 0 MOBIC 7.5 MG PO TABS One pill by mouth once a day for pain as needed (Patient not taking: Reported on 08/28/2023) Methotrexate 2.5 MG Oral Tablet Take by [...] days and repeat with each chemo cycle (Patient not taking: Reported on 09/25/2023) 72 Tablet 0 Prochlorperazine Maleate 10 MG Oral Tablet (Compazine) Take 1 Tablet by mouth every 6 hours as needed for Nausea. (Patient not taking: Reported on 08/28/2023) 60 Tablet 2 Ondansetron HCl 8 MG Oral Tablet Take 1 Tablet by mouth every 8 hours as needed for Nausea. (Patient not taking: Reported on 08/28/2023) 30 Tablet 3 ceFAZolin Sodium 1 GM Injection Solution Reconstituted (Ancef) Inject 1 g intravenously in the morning and 1 g at noon and 1 g before bedtime. Apixaban 5 MG Oral Tablet (Eliquis) Take 1 Tablet by mouth in the morning and 1 Tablet before bedtime. 60 Tablet 1 No current facility-administered medications for this visit. ALLERGIES: Allergies as of 10/13/2023 (No Known Allergies) SOCIAL HISTORY: Social History [...] anxiety or depression, unchanged sleep pattern HEME: Right IJ DVT, on eliquis NEURO: no significant headache, no seizures , no tremors SKIN: no new rashes, no itching PHYSICAL EXAMINATION: Blood pressure 140/61, pulse 97, height 1.637 m (5' 4.45"), weight 61.6 kg (135 lb 12.8 oz). Constitutional: alert, healthy Head: normocephalic, atraumatic Eyes: conjunctiva non-injected, sclera white Ears: pinna normal shape and color Cor: S1S2 RRR no murmurs Lungs: clear bilaterally Back: normal curvature Neuro: alert, gait normal, motor normal BREAST EXAMINATION: Smaller breasted Right Breast: Right Breast: Masses noted: No - prior upper inner breast 1:00 8 cm FN there is a 1.5-2 cm mass which causes a visible protrusion of her skin is no longer visible or palpable Post XRT edema: No Post XRT erythema: No Other palpable abnormality: No Skin: Skin retraction: No Peau d'orange: No Telangectasia: No Scar(s) present: Yes, port scar with eschar Other changes: No Right Nipple: Nipple inversion: No Pagets: No Nipple discharge: No Right Lymph Nodes: Arm edema: No Palpable axillary adenopathy: No Palpable supraclavicular adenopathy: No Previous axillary incision: No Left Breast: Left Breast: not rechecked today Masses noted: No Post XRT edema: No Post XRT erythema: No Other palpable abnormality: No Skin: Skin retraction: No Peau d'orange: No Telangectasia: No Scar(s) present: No Other changes: No Left Nipple: Nipple inversion: No Pagets: No Nipple discharge: No Left Lymph Nodes: Arm edema: No Palpable axillary adenopathy: No Palpable supraclavicular adenopathy: No Previous axillary incision: No IMPRESSION: 73 year-old woman with triple positive right breast cancer in the upper inner breast which [id number] mm on imaging with multiple satellite tumors on MRI. We discussed that there are 4 separate tumors within the right breast which occupied a fair amount of volume given that she is B cup size. We reviewed that 3 of these are mammographically occult. She is status post 2 cycles of chemotherapy butdid not tolerate it as she developed a severe MSSA bacteremic episode and required port removal. Also had a right IJ DVT and is on eliquis for 3 months. She has decided on bilateral mastectomies without reconstruction. We discussed that the local recurrence risk would be under 5% with mastectomy as some breast tissue is left to support the skin. Reviewed risks of bleeding (higher than normal risk due to eliquis), infection, wound complication (higher than normal risk due to thin skin/ eschar at port site), dog ear, numbness. Drains discussed. Expected postop recovery period and activity restrictions reviewed. She does understand that there is no medical benefit to contralateral prophylactic mastectomy. She elected to not undergo the MR biopsy of the left as she is decided on bilateral mastectomies. Because of the potential risk of malignancy on that side, I would recommend bilateral sentinel lymph node biopsy. We discussed sentinel lymph node biopsy with identification of the nodes with both blue dye (risks of tattooing of skin) and technetium sulfur colloid. Removal of at least 3 nodes with a small (<8%) risk of lymphedema was reviewed. This procedure would be done at the same time as the breast procedure. Her PCP recommended doxycycline as an antibiotic given her development of C. Dif following her lastantibiotic use. PLAN: Bilateral total mastectomies and bilateral sentinel node biopsies. Consent signed today. Hold eliquis for 3 days prior to surgery. Doxycycline given for postop given her history of C. Dif. I spent a total of 40-54 minutes (exact time 45 mins) on the date of service in preparation, delivery, and documentation of the care provided to Sue Rivas excluding any time spent in the performance of separately billed services or time spent by another provider/QHP. Sol Sol M.D. 10/13/2023 4:27 PM documented in this encounter Nursing Notes * Akosua Smith RN - 10/19/2023 3:39 PM EDT [address] [address] SameDay Surgery Discharge Note Name: Sue Rivas Date: 10/19/2023 Time: 3:39 PM Discharge Disposition: Home Responsible adult as escort home: [place], Transport Mode: Wheelchair Accompanied by: Cj Smith RN To: Car Belongings with patient: Yes Patient meets criteria to be transferred or discharged. Pt discharged home with two WOLF drains. Pt able to ambulate and void prior to discharge. Pain medication brought to bedside and sent home with pt. IV removed. * Rahel Carmona RN - 10/19/2023 7:49 AM EDT Patient does not meet criteria for testing. * Isabela Robledo RN - 10/16/2023 8:35 AM EDT Patient identified by: name/birthdate Person taught: Patient Optime case procedure confirmed with surgical consent Laterality confirmed as Bilateral Surgery date at time of Pre-Surgery Center Encounter: 10/19/2023 What procedure is patient having? bilateral mastectomies with bilateral axillary sentinal lymph node biopsies In an emergency, is patient willing to accept blood products or blood transfusion? unknown Do you need to place a blood bank order? No Anesthesia consent pool notified? N/A Anesthesia evaluation requested per case documentation? No Preop Evaluation Requested? No PATIENT EDUCATION SCREENING Person taught: Patient Motivation Level: Asks Questions and Eager to Learn Language Barrier: No Physical Barrier: N/A METHOD: Lecture-telephone interview Patient Preferred Learning Methods: Lecture-Telephone interview Health History interview completed, questions answered, and the following patient instructions provided via telephone interview: Preoperative bathing instructions General preoperative instructions Medication instructions NPO instructions No medications the morning of surgery. OUTCOME: State / Describe / Explain, Needs Reinforcement, and Verbalizes understanding of education * Isabela Robledo RN - 10/15/2023 3:05 PM EDT Left message on home phone for return call @ [phone] by Patient at least one week prior to surgery date or to leave a number where they can be reached . Instructed clinic open hours are M-F 8:00a- 4:00p. documented in this encounter OR Notes * OR Surgeon - Sol Sol MD - 10/19/2023 12:15 PM EDT [facility] [id number] OPERATIVE REPORT Name: Sue Rivas Date: 10/19/2023 Time: 12:15 PM Location: OR [facility] Service: General Surgery Date of Operation: 10/19/2023 Pre-op Diagnosis: right breast triple positive cancer s/p partial neoadjuvant chemotherapy Post-op Diagnosis: same Surgeon: Sol Sol MD Assistants: VONDA Graves Anesthesia: General endotracheal anesthesia Operation: bilateral total mastectomies and bilateral sentinel lymph node biopsies with injection of technetium sulfur colloid and isosulfan blue dye for mapping Findings: one sentinel node on each side Case Acuity: Elective Wound Class: Clean Specimen and Disposition: Tissue to Pathology 1) left sln #1 counts 300s 2) left breast short stitch superior, long stitch lateral 3) right breast - short stitch superior, long stitch lateral 4) right sln #1 counts 168 Estimated Blood Loss: 20 mL Fluids: 1600 mL Urine Output: 250 mL Drains/Implants: (1 10 flat) Balta-Ramos drain(s) with closed bulb suction in each subcutaneous space Complications: none Postoperative Condition: stable Indications and History: 73 yr old woman with right triple positive breast cancer who underwent two cycles of neoadjuvant chemotherapy but did not tolerate it. Her MRI had shown a small lesion within the left breast. Pt did not undergo a biopsy as she had decided on bilateral mastectomies (cancelled MR biopsy). Decided against reconstruction. Consent signed. She understood she was at increased risk of bleeding given use of eliquis and wound complications Description of Operation: Procedure: The patient underwent placement of SCD's and received 2 gm of ancef preoperatively. After the induction of general anesthesia (LMA), her bilateral breasts and axillae were prepped and draped. She had undergone preoperative technetium sulfur colloid injection by myself using 200 uCi into each periareolar breast. She then underwent injection of lymphazurin blue dye periareolar using 2.5 cc each side for mapping. Attention was first turned to the left breast. An elliptical incision encompassing skin, nipple/ areolar complex was made. Skin flaps were lifted to the edge of the breast under the clavicle, the medial edge along the sternum, the inframammary crease, and the edge of the breast along the pectoralis muscle. Larger vessels were taken with the harmonic scalpel or tied. The breast was then dissected off of the pectoralis, taking fascia. The specimen was marked with a short stitch superiorly, long stitch laterally. Flaps were about 5 mm in thickness. The deep tissue of theaxilla was entered and using the gamma probe, a hot and blue node was found. This was excised with the harmonic. A large feeding lymphatic was tied. The axilla was further explored and no other areasof radioactivity noted. The wound was irrigated and local anesthesia injected in the form of 20 cc of exparel mixed with 20 cc of 0.5% marcaine and 20 cc of injectable saline. A total of 30 cc was used on this side. A 10 flat WOLF was brought through a separate stab incision and laid into the wound. This was secured to the skin with a nylon stitch. The wound was closed with a deep layer of 3-0 vicryl stitches and a running subcuticular 4-0 monocryl suture. Attention was turned to the right breast. An elliptical incision encompassing skin, nipple/ areolarcomplex was made. Skin flaps were lifted to the edge of the breast under the clavicle, the medial edge along the sternum, the inframammary crease, and the edge of the breast along the pectoralis muscle. The breast was then dissected off of the pectoralis, taking fascia. Larger vessels were taken with the harmonic or tied. Flaps were left about 5 mm in thickness. The specimen was marked with a short stitch superiorly and a long stitch laterally. The axilla was then entered and using both the blue lymphatics and the gamma probe, a hot and blue node was identified. This had counts of over 160 and was excised with the harmonic scalpel. The axilla was further explored and no other areas of radioactivity or blue staining noted. No palpable nodes were seen. The background counts were 0. The wound was irrigated and local anesthesia injected with additional 30 cc of the same mixture. A 10 flat WOLF was brought through a separate stab incision and laid into the wound. This was secured to the skinwith a nylon stitch. The wound was closed with a deep layer of 3-0 vicryl stitches and a running subcuticular 4-0 monoryl suture. Steristrips and sterile dressings were applied. At the end of the procedure, it was noted that a small 1 cm area of the mid portion of the left chest wall incision was bruised. This was not resected as the skin was already tight on that side. Plan to use nitro paste. Mars wilson tolerated the procedure well and was taken to recovery in stable condition. The PA was instrumental in retraction during the procedure and closure of one side while the other was started. She helped with closure of both sides as well as serving as a mechanic assistant. Attestation: I understand that section 1842 (b)(7)(D) of the Social Security Act generally prohibits Medicare physician fee schedule payment for the services of [id number] in teaching hospitals when qualified residents are available to furnish such services. I certify that the services for which payment is claimed were medically necessary, and that no qualified resident was available to perform the services. I further understand that these services are subject to post-payment review by the Medicare carrier. documented in this encounter Miscellaneous Notes * Ancillary Progress Note - Kylah Garner CNMT - 10/19/2023 8:01 AM EDT The patient's identity was verified by the technologist JOSE M Enriquez(CT) and Dr. Sol. Technologist verified bilateral breasts as site of injection with physician's order verbally in the presence of the patient. documented in this encounter Plan of Treatment Upcoming Encounters Date Type Department Care Team (Late st Contact Info) Description 10/21/2023 9:45 AM EDT Scheduled Telephone General Surgery, [facility] [address] [address] Waldemar, Nurse Gen Surg [facility] [address] [address] 11/03/2023 9:00 AM EDT [facility] [address] [address] Slo Sol MD [address] [address] 11/05/2023 7:40 AM EDT Office Visit Family Practice [facility] [address] [place] [address] Charlene York CRNP [address] [place] [address] 11/10/2023 11:15 AM EDT Office Visit Hematology/Oncology [facility] [address] [facility] [place] [id number] Faustino Sharif MD [address] [facility] [place] [address] Pending Results Name Type Priority Associated Diagnoses Date /Time SURGICAL PATHOLOGY Pathology Routine Malignant neoplasm of upper-inner quadrant of right breast in female, estrogen receptor positive (HCC) 10/19/2023 9:39 AM EDT Scheduled Orders Name Type Priority Associated Diagnoses Order Schedule GLUCOSE METER, POINT OF CARE (COMMUNICATION ORDER) Point of Care Testing STAT Perform Now for 1 Occurrences starting 10/19/2023 until 10/19/2023 SURGICAL PATHOLOGY Pathology Routine Malignant neoplasm of upper-inner quadrant of right breast in female, estrogen receptor positive (HCC) Release Upon Ordering for 1 Occurrences starting 10/19/2023, 1 completed Health Maintenance Due Date Last Done Comments [...] this encounter Medical Devices Implanted Type Area Manager Licensing Device Identifier Shelf Expiration Date Model / Serial / Lot Power Port 8fr Sngl Lumen Plas - [id number] Implanted:Qty : 1 on 07/08/2023 by Naun Ratliff MD at OR [facility] Right: Chest CR BARD : PERIPHERAL VASCULAR [id number] 10/23/2024 [id number] / / [id number] documented as of this encounter Procedures Procedure Name Priority Date/Time Associated Diagnosis Comments GLUCOSE METER, POINT OF CARE [facility] 10/19/2023 10:28 AM EDT NM BREAST LYMPH GLAND TECH INJECTION Routine 10/19/2023 8:02 AM EDT Malignant neoplasm of upper-inner quadrant of right breast in female, estrogen receptor positive (HCC) Preoperative examination GLUCOSE METER, POINT OF CARE [facility] 10/19/2023 7:45 AM EDT documented in this encounter Results * GLUCOSE METER, POINT OF CARE (10/19/2023 10:28 AM EDT) Glucose Meter 119 70 - 120 mg/dL 10/19/2023 10:31 AM EDT [facility] Blood Whole blood specimen / Unknown 10/19/2023 10:28 AM EDT 10/19/2023 10:31 AM EDT Sol Sol MD LAB POINT OF CARE T EST DOCKED DEVICE UNSOLICITED RESULTS [facility] [address] [place] [address] * NM BREAST LYMPH GLAND TECH INJECTION (10/19/2023 8:02 AM EDT) Narrative Scheduling, Silent - 10/19/2023 8:02 AM EDT This procedure will not be read by a Radiologist. Please see operative note. Sol Sol MD [facility] * GLUCOSE METER, POINT OF CARE (10/19/2023 7:45 AM EDT) Glucose Meter 94 70 - 120 mg/dL 10/19/2023 7:48 AM EDT [facility] Blood Whole blood specimen / Unknown 10/19/2023 7:45 AM EDT 10/19/2023 7:48 AM EDT Sol Sol MD LAB POINT OF CARE T EST DOCKED DEVICE UNSOLICITED RESULTS [facility] [address] [place] [address] documented in this encounter Visit Diagnoses Diagnosis Malignant neoplasm of upper-inner quadrant of right breast in female, estrogen receptor positive (HCC)- Primary Preoperative examination Preoperative examination, unspecified documented in this encounter Administered Medications Inactive Administered Medications - up to 3 most recent administrations Medication Order MAR Action Action Date Dose Rate Site check patch placement order QSHIFT, First dose on Thu10/19/23 at 0800, Until Discontinued, Routine, Scopolamine (TRANSDERM SCOP) patch placement check, Pre-Op chlorhexidine gluconate cloth 2 % pad 1 Pad 1 Pad, External, ONCE, On Thu10/19/23 at 0745, For 1 dose, As applicable by procedure for patients 2 months and older unless contraindicated., Pre-Op Given 10/19/2023 7:42 AM EDT 1 Pad isolyte-S pH 7.4 infusion Intravenous, at 25 mL/hr, All Patients EXCEPT Dialysis patients Plasma-LYTE 148, isolyte-S, and isolyte-S pH 7.4 are considered equivalent - including for MAR barcode scanning., CONTINUOUS, Starting on Thu10/19/23 at 0745, Until Thu10/19/23 at 1940, Pre-Op Restarted 10/19/2023 9:00 AM EDT Continue from Pre-Op 10/19/2023 8:33 AM EDT 25 mL/hr New Bag 10/19/2023 7:50 AM EDT 25 mL/hr 25 mL/hr Lidocaine-Prilocaine (Emla) 2.5-2.5 % topical cream Topical, ONCE, On Thu10/19/23 at 0745, For 1 dose, See nursing care plan, Pre-Op Given 10/19/2023 7:28 AM EDT Nitroglycerin (Nitro-Bid) 2 % ointment 1 Inch 1 Inch, Transdermal, Q6H, First dose on Thu10/19/23 at 1230, Until Discontinued, Hold for 6 hours prior to Stress Test and notify service if dose is held 1 inch = 1 packet = 1 gram, Intra-Op Given 10/19/2023 12:30 PM EDT 1 Inch Breast Left Povidone-Iodine nasal swab 1 Swab 1 Swab, Nasal, ONCE, On Thu10/19/23 at 0745, For 1 dose, Administer as per halver machine operator instructions unless contraindicated., Pre-Op Given 10/19/2023 7:42 AM EDT 1 Swab Scopolamine (Transderm Scop) patch 1 mg 1 mg (1 Patch), Transdermal, Q3DAYS, First dose on Thu10/19/23 at 0800, Until Discontinued, Do NOT cut the patch. All Scopolamine patches deliver 1 mg over 72 hours. Remove any Scopolamine patches the patient may currently be wearing prior to applying the new patch., Pre-Op Patch Applied 10/19/2023 7:41 AM EDT 1 mg Other-Specify Technetium Tc 99m Tilmanocept (Lymphoseek) inj 0.2 millicurie 0.2 millicurie, Intradermal, ONCE, On Thu10/19/23 at 0845, For 1 dose, Total doses in 1 number of syringes., Radiology Medication Routing (Non-IR) Given 10/19/2023 7:55 AM EDT 0.2 millicuries Breast Left Technetium Tc 99m Tilmanocept (Lymphoseek) inj 0.4 millicurie 0.4 millicurie, Intradermal, ONCE, On Thu10/19/23 at 0830, For 1 dose, Total doses in 2 number of syringes., Radiology Medication Routing (Non-IR) Given 10/19/2023 7:55 AM EDT 0.2 millicuries Breast Right documented in this encounter Active and Recently Administered Medications Times are shown in EDT. Scheduled Medication Order 10/17/2023 10/18/2023 10/19/2023 ceFAZolin in dextrose (Ancef) ivpb 2 g (COMPLETED) 2 g, IV Piggyback, PREOP, 1 dose, First dose on Thu10/19/23 at 0900, Administer 60 minutes prior to skin incision, Pre-Op 841 (Given - Provid er: Kailyn Ho CRNA) check patch placement order QSHIFT, First dose on Thu10/19/23 at 0800, Until Discontinued, Routine, Scopolamine (TRANSDERM SCOP) patch placement check, Pre-Op 740 (Patch Placemen t Verified - Provider: Rahel Carmona RN - Comment: behind L ear) chlorhexidine gluconate cloth 2 % pad 1 Pad (COMPLETED) 1 Pad, External, ONCE, On Thu10/19/23 at 0745, For 1 dose, As applicable by procedure for patients 2 months and older unless contraindicated., Pre-Op 741 (Given - Provid er: Rahel Carmona RN) Lidocaine-Prilocaine (Emla) 2.5-2.5 % topical cream (COMPLETED) Topical, ONCE, On Thu10/19/23 at 0745, For 1 dose, See nursing care plan, Pre-Op 727 (Given - Provid er: Rahel Carmona, DARLINE - Comment: applied to bilateral areola) Nitroglycerin (Nitro-Bid) 2 % ointment 1 Inch 1 Inch, Transdermal, Q6H, First dose on Thu10/19/23 at 1230, Until Discontinued, Hold for 6 hours prior to Stress Test and notify service if dose is held 1 inch = 1 packet = 1 gram, Intra-Op 1230 (Given - Provid er: Angella Gonzalez RN - Comment: Bilateral breast on incision sites) Povidone-Iodine nasal swab 1 Swab (COMPLETED) 1 Swab, Nasal, ONCE, On Thu10/19/23 at 0745, For 1 dose, Administer as per halver machine operator instructions unless contraindicated., Pre-Op 741 (Given - Provid er: Rahel Carmona RN) Scopolamine (Transderm Scop) patch 1 mg 1 mg (1 Patch), Transdermal, Q3DAYS, First dose on Thu10/19/23 at 0800, Until Discontinued, Do NOT cut the patch. All Scopolamine patches deliver 1 mg over 72 hours. Remove any Scopolamine patches the patient may currently be wearing prior to applying the new patch., Pre-Op 0741 (Patch Applied - Provider: Rahel Carmona RN - Comment: behind L ear)1540 (Due: Patch Removed - Provider: Discharge, Physician - Comment: Time automatically adjusted from order being discontinued) Technetium Tc 99m Tilmanocept (Lymphoseek) inj 0.2 millicurie (COMPLETED) 0.2 millicurie, Intradermal, ONCE, On Thu10/19/23 at 0845, For 1 dose, Total doses in 1 number of syringes., Radiology Medication Routing (Non-IR) 0755 (Given - Provid er: JOSE M Pearson) Technetium Tc 99m Tilmanocept (Lymphoseek) inj 0.4 millicurie (COMPLETED) 0.4 millicurie, Intradermal, ONCE, On Thu10/19/23 at 0830, For 1 dose, Total doses in 2 number of syringes., Radiology Medication Routing (Non-IR) 0755 (Given - Provid er: JOSE M Pearson) Continuous Medication Order 10/17/2023 10/18/2023 10/19/2023 isolyte-S pH 7.4 infusion Intravenous, at 25 mL/hr, All Patients EXCEPT Dialysis patients Plasma-LYTE 148, isolyte-S, and isolyte-S pH 7.4 are considered equivalent - including for MAR barcode scanning., CONTINUOUS, Starting on Thu10/19/23 at 0745, Until Thu10/19/23 at 1940, Pre-Op 0750 (New Bag - Prov ider: Rahel Carmona RN)0833 (Continue from Pre-Op - Provider: Kailyn Ho CRNA)0859 (Paused - Provider: Kailyn Ho CRNA - Comment: Switch to gravity)0900 (Restarted - Provider: Kailyn Ho CRNA)0917 (Anes Intra-Op Fluid - Provider: Kailyn Ho CRNA)0952 (Anes Intra-Op Fluid - Provider: Kailyn Ho CRNA)1019 (Anes Intra-Op Fluid - Provider: Kailyn Ho CRNA)1149 (Anes Intra-Op Fluid - Provider: Kailyn Ho CRNA)1157 (Anes Intra-Op Fluid - Provider: Kailyn Ho CRNA) isolyte-S pH 7.4 infusion Intravenous, at 75 mL/hr, Plasma-LYTE 148, isolyte-S, and isolyte-S pH 7.4 are considered equivalent - including for MAR barcode scanning., CONTINUOUS, Starting on Thu10/19/23 at 1315, Until Thu10/19/23 at 1940, Post-op 1315 (Due) PRN Medication Order 10/17/2023 10/18/2023 10/19/2023 bupivacaine 20 mL, bupivacaine Liposome 20 mL in NSS 20 mL inj (CANCELED) ONCE PRN INTRA PROCEDURE, Starting on Thu10/19/23 at 1133, Until Thu10/19/23 at 1222, Intra-Op 1133 (Given - Provid er: Sol Sol MD) Isosulfan Blue (Lymphazurin) 1 % inj (CANCELED) ONCE PRN INTRA PROCEDURE, Starting on Thu10/19/23 at 1134, Until Thu10/19/23 at 1222, Intra-Op 1134 (Given - Provid er: Sol Sol MD) sterile water for irrigation irrigation (CANCELED) ONCE PRN INTRA PROCEDURE, Starting on Thu10/19/23 at 1148, Until Thu10/19/23 at 1222, Intra-Op 1148 (Given - Provid er: Sol Sol MD) documented in this encounter Advance Directives * Full Code (Latest Code Status on File) Date Activated Date Inactivated Comments 10/19/2023 8:29 AM 10/19/2023 7:46 PM This order r eflects the patients wishes and were consensually agreed upon. Question Answer Comments Discussion of Advance Directives occurred with: Patient Care Teams Seismic Prospecting Observer Relationship Specialty Start Date End Date Charlene York CRNP [address] [address] PCP - General Nurse Practitioner 03/11/23 documented as of this encounter
--- OUTSIDE RECORDS SUMMARY | 2023-10-23 01:34 | External Medical Summary ---
Author Name Unknown Address Unknown Organization : Laboratory Report Ordering Provider Test Date Status KANDY CAMPA 10/19/2023 07:45:20 Final Observation Date Value Abnormality Reference (Units ) Status Glucose Point of Care 10/19/2023 07:45:20 94 70-120 (mg/dL) Final Performing Location
--- OUTSIDE RECORDS SUMMARY | 2023-10-23 01:35 | External Medical Summary | Summary of Care ---
Author Name Unknown Organization [facility] Address [address] [facility] [place] [address] Phone [phone] Care Team Providers Care Dietician Name Role Phone Charlene York Primary Care Provider Encounter Details Date Type Department Care Team (Late st Contact Info) Description 10/06/2023 Telephone General Surgery, [facility] [address] [facility] [place] [place] [address] Sol Sol MD [address] [facility] [place] [address] Allergies No known active allergiesdocumented as of this encounter (statuses as of 10/07/2023) Medications Medication Sig Dispensed Refills Start Date [...] Additional Information Patient not taking.Reported on 08/28/2023 ceFAZolin Sodium 1 GM Injection Solution Reconstituted (Ancef) Inject 1 g intravenously in the morning and 1 g at noon and 1 g before bedtime. 08/21/2023 Active Apixaban 5 MG Oral Tablet (Eliquis) Take 1 Tablet by mouth in the morning and 1 Tablet before bedtime. 60 Tablet 1 09/25/2023 Active documented as of this encounter (statuses as of 10/07/2023) Active Problems Problem Noted Date Diagnosed Date [...] as of this encounter (statuses as of 10/07/2023) Resolved Problems Problem Noted Date Diagnosed Date Resolved Date Impacted cerumen 03/11/2023 Otitis media 03/11/2023 documented as of this encounter (statuses as of 10/07/2023) Immunizations Name Administration Dates Next Due SARS-COV-2 [...] Telephone Encounter - Sol Sol MD - 10/07/2023 10:[address] Hameed, she has decided against reconstruction as recently had a port infection and was hospitalized and is now fearful of infection risk. Last chemo was July. She is hoping for no more chemo as she did not tolerate well. Has appt with Dr. Sharif today and will see what he says... she will notify me. Mell, can you schedule bilateral mastectomies and bilateral sentinel node biopsies at [facility](4 hrs total); need Priscilla. I created the case. Thank you! * Telephone Encounter - Kristine Aguilar LPN - 10/07/2023 8:[address] sol, please see MYG and advise * Telephone Encounter - Sol Sol MD - 10/06/2023 11:12 AM EDT Received message from plastics that pt is no longer interested in reconstruction. Tried to call. Email sent. documented in this encounter Plan of Treatment Upcoming Encounters Date Type Department Care Team (Late st Contact Info) Description 10/07/2023 1:15 PM EDT Office Visit Hematology/Oncology [facility] [place] [address] [facility] [place] [phone] Faustino Sharif MD [address] [facility] [place] [address] 11/05/2023 7:40 AM EDT Office Visit Family Practice [facility] [address] [place] [address] Charlene York CRNP [address] [place] [address] Scheduled Procedures Name Priority Associated Diagnoses Date/Ti me MASTECTOMY SIMPLE COMPLETE Malignant neoplasm of upper-inner quadrant of right breast in female, estrogen receptor positive (HCC) BIOPSY LYMPH NODE DEEP AXILL NAINA OPEN Malignant neoplasm of upper-inner quadrant of right breast in female, estrogen receptor positive (HCC) INJECTION PROCEDURE FOR IDENTIFICATION SENTINEL NODE Malignant neoplasm of upper-inner quadrant of right breast in female, estrogen receptor positive (HCC) Health Maintenance Due Date Last Done Comments [...] this encounter Medical Devices Implanted Type Area Laser Print Operator Device Identifier Shelf Expiration Date Model / Serial / Lot Power Port 8fr Sngl Lumen Plas - [id number] Implanted:Qty : 1 on 07/08/2023 by Naun Ratliff MD at [facility] Right: Chest CR BARD : PERIPHERAL VASCULAR [id number] 10/23/2024 [id number] / / [id number] documented as of this encounter Visit Diagnoses Diagnosis Malignant neoplasm of upper-inner quadrant of right breast in female, estrogen receptor positive (HCC)- Primary documented in this encounter Care Teams Dietician Relationship Specialty Start Date End Date Charlene York CRNP [address] [place] [address] PCP - General Nurse Practitioner 03/11/23 documented as of this encounter
--- OUTSIDE RECORDS SUMMARY | 2023-10-23 01:35 | External Medical Summary | Summary of Care ---
Author Name Unknown Organization [facility] Address [address] [facility] [address] Phone [phone] Care Team Providers Care Product Support Rep Name Role Phone Charlene York Primary Care Provider Reason for Referral * Precert (Within 10 days (routine)) - Authorized Specialty Diagnoses / Procedures Referred By Contac t Referred To Contact Radiology Diagnoses Malignant neoplasm of upper-inner quadrant of right breast in female, estrogen receptor positive (HCC) Preoperative examination Procedures NM BREAST LYMPH GLAND TECH INJECTION Katheryn Sol MD [address] [place] [address] Referral ID Status Reason Start Date Expiration Date V isits Requested Visits Authorized [id number] Authorized 10/14/2023 999 999 Encounter Details Date Type Department Care Team (Late st Contact Info) Description 10/06/2023 Telephone General Surgery, [facility] [address] [place] [address] Katheryn Sol MD [address] [place] [address] Allergies No known active allergiesdocumented as of [...] Telephone Encounter - Charlene York CRNP - 10/07/2023 12:13 PM EDT Noted Dea, MSN, DIMITRIOS [facility] * Addendum Note - Katheryn Sol MD - 10/07/2023 10:57 AM EDTAddended by: KATHERYN SOL on: 10/07/2023 10:57 AM Modules accepted: Orders * Telephone Encounter - Katheryn Sol MD - 10/07/2023 10:51 AM EDT [...] mastectomies and bilateral sentinel node biopsies at [facility](4 hrs total); need Priscilla. I created the case. Thank you! Also appt to see me prior to do paperwork and H&P. * Telephone Encounter - Kristine Aguilar LPN - 10/07/2023 8:[address] sol, please see MYG and advise * Telephone Encounter - Katheryn Sol MD - 10/06/2023 11:12 AM EDT Received message from plastics that pt is no longer interested in reconstruction. Tried to call. Email sent. documented in this encounter Plan of Treatment Upcoming Encounters Date Type Department Care Team (Late st Contact Info) Description 10/07/2023 1:15 PM EDT Office Visit Hematology/Oncology [facility] [address] [facility] [place] [phone] Faustino Sharif MD [address] [facility] [place] [address] 11/05/2023 7:40 AM EDT Office Visit Family [facility] [address] [facility] [address] Charlene York CRNP [address] [facility] [place] [place] [address] Scheduled Orders Name Type Priority Associated Diagnoses Orde r Schedule EKG EKG Routine Malignant neoplasm of upper-inner quadrant of right breast in female, estrogen receptor positive (HCC) Preoperative cardiovascular examination Expected: 10/07/2023 (Approximate), Expires: 11/06/2024 NM BREAST LYMPH GLAND TECH INJECTION Medical Imaging Routine Malignant neoplasm of upper-inner quadrant of right breast in female, estrogen receptor positive (HCC) Preoperative examination Expected: 10/14/2023, Expires: 11/06/2024 Scheduled Procedures Name Priority Associated Diagnoses Date/Ti [...] this encounter Medical Devices Implanted Type Area Nursing Center Tutor Device Identifier Shelf Expiration Date Model / Serial / Lot Power Port 8fr Sngl Lumen Plas - [id number] Implanted:Qty : 1 on 07/08/2023 by Naun Ratliff MD at [facility] Right: Chest CR BARD : PERIPHERAL VASCULAR [id number] 10/23/2024 [id number] / / [id number] documented as of this encounter Visit Diagnoses Diagnosis Malignant neoplasm of upper-inner quadrant of right breast in female, estrogen receptor positive (HCC)- Primary Preoperative cardiovascular examination Pre-operative cardiovascular examination Preoperative examination Preoperative examination, unspecified documented in this encounter Care Teams Product Support Rep Relationship Specialty Start Date End Date Charlene York CRNP [address] [place] [address] PCP - General Nurse Practitioner 03/11/23 documented as of this encounter
--- OUTSIDE RECORDS SUMMARY | 2023-10-23 01:35 | External Medical Summary | Summary of Care ---
Author Name Unknown Organization [facility] Address [address] [facility] [place] [address] Phone [phone] Care Team Providers Care Coke Inspector Name Role Phone Charlene York Primary Care Provider Encounter Details Date Type Department Care Team (Late st Contact Info) Description 10/06/2023 Telephone General Surgery, [facility] [place] [address] Sol Sol MD 132 [facility] [place] [address] Allergies No known active allergiesdocumented as of this encounter (statuses as of 10/06/2023) Medications Medication Sig Dispensed Refills Start Date [...] as of this encounter (statuses as of 10/06/2023) Active Problems Problem Noted Date Diagnosed Date Clostridium difficile diarrhea 08/28/2023 MSSA bacteremia 08/28/2023 [...] as of this encounter (statuses as of 10/06/2023) Resolved Problems Problem Noted Date Diagnosed Date Resolved Date Impacted cerumen 03/11/2023 Otitis media 03/11/2023 documented as of this encounter (statuses as of 10/06/2023) Immunizations Name Administration Dates Next Due SARS-COV-2 [...] 10/06/2023 11:12 AM EDT Received message from [employer] that pt is no longer interested in reconstruction. Tried to call. Email sent. documented in this encounter Plan of Treatment Upcoming Encounters Date Type Department Care Team (Late st Contact Info) Description 10/06/2023 12:00 PM EDT Imaging Vascular Lab, [facility] 2nd Floor, [place] [address] [place] [address] Arrived 10/07/2023 1:15 PM EDT Office Visit Hematology/Oncology [facility] [address] [facility] [place] [phone] Faustino Sharif MD 200 [place] [address] 11/05/2023 7:40 AM EDT Office Visit Family Practice [facility] [address] [place] [address] Charlene York CRNP [address] [place] [address] Health Maintenance Due Date Last Done Comments [...] this encounter Medical Devices Implanted Type Area Clinic Supervisor Device Identifier Shelf Expiration Date Model / Serial / Lot Power Port 8fr Sngl Lumen Plas - [id number] Implanted:Qty : 1 on 07/08/2023 by Naun Ratliff MD at [facility] Right: Chest CR BARD : PERIPHERAL VASCULAR [id number] 10/23/2024 [id number] / / [id number] documented as of this encounter Care Teams Coke Inspector Relationship Specialty Start Date End Date Charlene York CRNP [address] [place] [address] PCP - General Nurse Practitioner 03/11/23 documented as of this encounter
--- OUTSIDE RECORDS SUMMARY | 2023-10-23 01:35 | External Medical Summary | Summary of Care ---
Author Name Unknown Organization [facility] Address [address] [facility] [address] Phone [phone] Care Team Providers Care Activity Specialist Name Role Phone Charlene York Primary Care Provider Reason for Referral * Precert (Within 10 days (routine)) - Authorized Specialty Diagnoses / Procedures Referred By Contac t Referred To Contact Radiology Diagnoses Malignant neoplasm of upper-inner quadrant of right breast in female, estrogen receptor positive (HCC) Preoperative examination Procedures NM BREAST LYMPH GLAND TECH INJECTION Sol Lockwood MD [address] [place] [address] Referral ID Status Reason Start Date Expiration Date V isits Requested Visits Authorized [id number] Authorized 10/14/2023 999 999 Encounter Details Date Type Department Care Team (Late st Contact Info) Description 10/06/2023 Telephone General Surgery, [facility] [address] [address] Sol Lockwood MD [address] [place] [address] Allergies No known active allergiesdocumented as of [...] Telephone Encounter - Mell Ferreira OSA - 10/07/2023 3:22 PM EDT Patient accepted surgery at [facility] on 10/19/23. OV is scheduled on 10/13/23 at . * Telephone Encounter - Mell Ferreira OSA - 10/07/2023 1:23 PM EDT Offering 10/19/23 at [facility]. Lmom to return my call * Telephone Encounter - Charlene York CRNP - 10/07/2023 12:13 PM EDT Noted Dea, KUNAL, DIMITRIOS [facility] * Addendum Note - Sol Lockwood MD - 10/07/2023 10:57 AM EDTAddended by: SOL LOCKWOOD on: 10/07/2023 10:57 AM Modules accepted: Orders * Telephone Encounter - Sol Lockwood MD - 10/07/2023 10:[address] [...] mastectomies and bilateral sentinel node biopsies at [facility](4 hrs total); need Priscilla. I created the case. Thank you! Also appt to see me prior to do paperwork and H&P. * Telephone Encounter - Kristine Aguilar LPN - 10/07/2023 8:[address] lockwood, please see MYG and advise * Telephone Encounter - Sol Lockwood MD - 10/06/2023 11:12 AM EDT Received message from plastics that pt is no longer interested in reconstruction. Tried to call. Email sent. documented in this encounter Plan of Treatment Upcoming Encounters Date Type Department Care Team (Late st Contact Info) Description 10/13/2023 1:15 PM EDT Office Visit General Surgery, [facility] [address] [address] Sol Lockwood MD [address] [place] [address] 10/19/2023 Hospital Encounter OR GL, Operating Room, [facility] - 4th Floor [address] [facility] [place] [address] Sol Lockwood MD [address] [place] [address] 10/19/2023 8:00 AM EDT Appointment Radiology, [facility] [address] [facility] [place] [address] 11/05/2023 7:40 AM EDT Office Visit Family Practice [facility] [address] [place] [address] Charlene York CRNP [address] [place] [address] 11/10/2023 11:15 AM EDT Office Visit Hematology/Oncology [facility] [place] [address] [facility] [place] [phone] Faustino Sharif MD [address] [place] [address] Scheduled Orders Name Type Priority Associated Diagnoses [...] this encounter Medical Devices Implanted Type Area Gate Supervisor Device Identifier Shelf Expiration Date Model / Serial / Lot Power Port 8fr Sngl Lumen Plas - [id number] Implanted:Qty : 1 on 07/08/2023 by Naun Ratliff MD at [facility] Right: Chest CR BARD : PERIPHERAL VASCULAR [id number] 10/23/2024 [id number] / / [id number] documented as of this encounter Visit Diagnoses Diagnosis Malignant neoplasm of upper-inner quadrant of right breast in female, estrogen receptor positive (HCC)- Primary Preoperative cardiovascular examination Pre-operative cardiovascular examination Preoperative examination Preoperative examination, unspecified Malignant neoplasm of upper-inner quadrant of right breast in female, estrogen receptor positive (HCC)- Primary documented in this encounter Care Teams Activity Specialist Relationship Specialty Start Date End Date Charlene York CRNP [address] [place] [address] PCP - General Nurse Practitioner 03/11/23 documented as of this encounter
--- OUTSIDE RECORDS SUMMARY | 2023-10-23 01:35 | External Medical Summary | Summary of Care ---
Author Name Unknown Organization [facility] Address [address] [facility] [place] [address] Phone [phone] Care Team Providers Care Flatbed Driver Name Role Phone Charlene York Primary Care Provider Reason for Visit * Reason Comments Follow Up Return Encounter Details Date Type Department Care Team (Late st Contact Info) Description 10/07/2023 1:15 PM EDT Office Visit Hematology/Oncology [facility] [place] 200 [facility] [place] [phone] Faustino Sharif MD [address] [facility] [place] [address] Malignant neoplasm of upper-outer quadrant of right breast in female, estrogen receptor positive (HCC)*; 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) Allergies No known active allergiesdocumented as [...] Sign Reading Time Taken Comments Blood Pressure 119/72 10/07/2023 1:29 PM EDT Pulse 80 10/07/2023 1:29 PM EDT Temperature 36.1 C (97 F) 10/07/2023 1:29 PM EDT Respiratory Rate - - Oxygen Saturation 96% 10/07/2023 1:29 PM EDT Inhaled Oxygen Concentration - - Weight 60.6 kg (133 lb 8 oz) 10/07/2023 1:29 PM EDT Height - - Body Mass Index 21.55 07/08/2023 8:35 AM EDT documented in this encounter Progress Notes * Faustino Sharif MD - 10/07/2023 1:15 PM EDT Hematology/Oncology Outpatient Consult Note [facility] [address] [facility], [place] [address] SUE RIVAS MR # [id number] :1950 73 years old female, Date of consultation:05/13/2023 DIAGNOSIS: Right breast cancer, ER and IL positive, HER2 Myrna positive. Based on MRI of the breast, It is about 2.2 cm, also has 3 satellite lesions in the right breast She received 2 cycles of TCH P (07/13/2023, 08/04/2023). She had port problem, port site infection, Staphylococcus aureus bacteremia, she received 6 weeks of antibiotic treatment which was completed in early September of 2023. Decided not to continue further treatment. Right internal jugular vein thrombus, port has been removed, she is on Eliquis.(08/15/2023) CURRENT TREATMENT: She is going for surgical intervention by Dr. Sol. DIAGNOSTIC WORKUP: She felt small lump in [...] ER moderately positive in 50% million cells, IL strongly positive in 90 was malignamt cells. [...] good symptom control. She follows up with goods layer in [place]. INTERVAL HISTORY: She has come the clinic for the follow-up, accompanied by her daughter in the office Recently she completed IV antibiotic treatment for the staphylococcal bacteremia, no fever, no night sweats, PICC line has been removed, no cardiac or pulmonary symptoms, no new GI symptoms, ambulates well, no neuropathy symptoms, lost some weight earlier, lowest weight 130 lb, now 133 lb, ambulates well, good ECOG PS 0. No increasing headache. . 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 ortho US GUIDED BREAST BIOPSY RIGHT [...] on file Occupational History Occupation: Retired from [employer] Tobacco Use Smoking status: Never Smokeless tobacco: Never Vaping Use Vaping status: Never Used Substance and Sexual Activity Alcohol use: No Drug use: Never Sexual activity: Not Currently Partners: Male Other Topics Concern Not on file Social History Narrative Lives in [place] with husbands No pets in the home Social Determinants of Health Financial Resource Strain: Not on file Food Insecurity: Not on file Transportation Needs: Not on file Social Connections: Unknown (08/11/2023) Social Connections How often do you feel lonely or isolated from those around you? (Adult - for ages 18 years and over): Not on file Housing Stability: Not on file On Exam: BP 119/72 (BP Site: Left Arm, BP Position: Sitting, BP Cuff Size: Regular) | Pulse 80 | Temp 36.1 C (97 F) (Tympanic) | Wt 60.6 kg (133 lb 8 oz) | SpO2 96% | BMI 21.55 kg/m | BSA 1.68 m - Alert and oriented x3, well built woman, not in any distress. - HEENT: no icterus, no pallor, Throat: Normal. - Neck: No palpable cervical lymphadenopathy. - Chest: clear to auscultation. - Abdomen: soft, nontender, no hepatomegaly, no splenomegaly. - No focal neuro deficit. - Extremities: no finger clubbing, no leg edema. LABS: I reviewed her blood workup done on 08/03/2023: -WBC 78155, H&H of 11.5/36.2, Platelet count [id number] -BUN/Creat: 21/0.8, normal LFT. I reviewed her hospital blood workup, imaging studies CT chest ( 08/15/2023) 1. There is no evidence of pulmonary embolus in the main, lobar, or segmental pulmonary arteries. 2. There is no airspace consolidation or pleural effusion. 3. There is inflammation and edema in the right supraclavicular tissues as well as the right upper chest wall around the infusion port. Correlate clinically for evidence of cellulitis. No fluid collection is seen to indicate abscess. 4. Question thrombus in the internal jugular vein around the catheter. This is not well assessed due to mixing and streak artifact. Consider ultrasound correlation for further assessment. 5. There is a 3 mm left upper lobe pulmonary nodule. If warranted this can be followed as per the Fleischner criteria. See below. IMAGING: As described above. ASSESSMENT AND PLAN: 73-year-old female, a case of right breast carcinoma, [...] non-mass enhancement in the left breast. She received 2 cycles of TCH P she had prophylactic Pegfilgrastim what she had a port site infection, Staphylococcus bacteremia, right internal jugular vein thrombosis, port has been removed, currently on Eliquis, completed 6 weeks of antibiotic treatment. Could not proceed with additional chemotherapy Will proceed with surgical intervention, she is going for bilateral mastectomies by Dr. Sol in last week of September 2023 Planning for Eliquis for about 3 months duration. Her tumor is hormonal positive so adjuvant hormonal treatment is indicated. Will see her after the surgery. Dr. Faustino Sharif Hem/Onc (This note was [...] Notes * Didi Blank MED ASSIST - 10/07/2023 1:30 PM EDT Patient identifed by name and birthdate Do you have any concerns about pain management for today's visit? No Living Will or Advance Directive for Health Care as noted on the problem list. [facility] is a way you can talk to your provider on line through e-mail. Would you like to sign up? I can activate it for you? ALREADY ACTIVE Filed Vitals: 10/07/23 1329 BP: 119/72 Pulse: 80 Temp: 36.1 C (97 F) TempSrc: Tympanic SpO2: 96% Weight: 60.6 kg (133 lb 8 oz) Patient was instructed to not get up [...] Department Care Team (Latest Contact Info) Description 10/13/2023 1:15 PM EDT Office Visit General Surgery, [facility] [address] [address] Sol Sol MD [address] [place] [address] 10/19/2023 7:40 AM EDT Hospital Encounter OR GL, Operating Room, [facility] - 4th Floor [address] [place] [phone] Sol Sol MD [address] [place] [address] 10/19/2023 7:40 AM EDT - 10/19/2023 12:41 PM EDT Surgery OR [facility], Operating Room, [facility] - 4th Floor [address] [place] [address] Sol Sol MD [address] [place] [address] MASTECTOMY SIMPLE COMPLETE 10/19/2023 8:00 AM EDT Appointment Radiology, [facility] [address] [place] [address] 11/05/2023 7:40 AM EDT Office Visit Family Practice [facility] [address] [place] [address] Charlene York CRNP [address] [place] [address] 11/10/2023 11:15 AM EDT Office Visit Hematology/Oncology [facility] 200 [facility] [place] [phone] Faustino Sharif MD 200 [place] [address] Scheduled Procedures Name Priority Associated Diagnoses Date/Ti me MASTECTOMY SIMPLE COMPLETE Malignant neoplasm of upper-inner quadrant of right breast in female, estrogen receptor positive (HCC) 10/19/2023 7:40 AM EDT BIOPSY LYMPH NODE DEEP AXILLARY OPEN Malignant neoplasm of upper-inner quadrant of right breast in female, estrogen receptor positive (HCC) 10/19/2023 7:40 AM EDT INJECTION PROCEDURE FOR IDENTIFICATION SENTINEL NODE Malignant neoplasm of upper-inner quadrant of right breast in female, estrogen receptor positive (HCC) 10/19/2023 7:40 AM EDT Health Maintenance Due Date Last [...] this encounter Medical Devices Implanted Type Area Bump Grader Operator Device Identifier Shelf Expiration Date Model / Serial / Lot Power Port 8fr Sngl Lumen Plas - [id number] Implanted:Qty : 1 on 07/08/2023 by Naun Ratliff MD at OR [facility] Right: Chest CR BARD : PERIPHERAL VASCULAR [id number] 10/23/2024 [id number] / / [id number] documented as of this encounter Visit Diagnoses Diagnosis Malignant neoplasm of upper-outer quadrant of right breast in female, estrogen receptor positive (HCC)- Primary 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
--- OUTSIDE RECORDS SUMMARY | 2023-10-23 01:35 | External Medical Summary | Summary of Care ---
Author Name Unknown Organization [facility] Address [address] [place] [address] Phone [phone] Care Team Providers Care Manufacturers Service Representative Name Role Phone Charlene York Primary Care Provider Reason for Visit * Reason Onset Date Comments Surgery 10/06/2023 Encounter Details Date Type Department Care Team (Late st Contact Info) Description 10/06/2023 Telephone Plastic Surgery, [place] [address] [place] [address] Wil Hameed MD [address] [place] [address] Surgery Allergies No known active allergiesdocumented as of [...] encounter Miscellaneous Notes * Telephone Encounter - Skyla Downing OSA - 10/06/2023 10:42 AM EDT Phoned to offer OR date 12/20, pt expressed that she would like to speak with Dr. Sol due to changing her mind about reconstruction. She relayed that she only wants mastectomies now. documented in this encounter Plan of Treatment Upcoming Encounters Date Type Department Care Team (Late st Contact Info) Description 10/06/2023 12:00 PM EDT Imaging Vascular Lab, [facility] 2nd [facility] [address] [place] [address] 10/07/2023 1:15 PM EDT Office Visit Hematology/Oncology [facility] [address] [place] [address] Faustino Sharif MD 200 [facility] [place] [address] 11/05/2023 7:40 AM EDT Office Visit Family Practice [facility] [address] [place] [address] Charlene York CRNP [address] [place] [address] Health Maintenance Due Date Last Done Comments [...] this encounter Medical Devices Implanted Type Area Hot Plate Plywood Press Feeder Device Identifier Shelf Expiration Date Model / Serial / Lot Power Port 8fr Sngl Lumen Plas - [id number] Implanted:Qty : 1 on 07/08/2023 by Naun Ratliff MD at [facility] Right: Chest CR BARD : PERIPHERAL VASCULAR [id number] 10/23/2024 [id number] / / [id number] documented as of this encounter Care Teams Manufacturers Service Representative Relationship Specialty Start Date End Date Charlene York CRNP [address] [place] [address] PCP - General Nurse Practitioner 03/11/23 documented as of this encounter
--- OUTSIDE RECORDS SUMMARY | 2023-10-23 01:35 | External Medical Summary | Summary of Care ---
Author Name Unknown Organization [facility] Address [address] [address] Phone [phone] Care Team Providers Care Military Nurse Name Role Phone Charlene York Primary Care Provider Encounter Details Date Type Department Care Team (Late st Contact Info) Description 10/05/2023 Orders Only [facility] [place] [address] Jeffrey France MD 132 [facility] [place] [address] Allergies No known active allergiesdocumented as of this encounter (statuses as of 10/05/2023) Medications Medication Sig Dispensed Refills Start Date [...] as of this encounter (statuses as of 10/05/2023) Active Problems Problem Noted Date Diagnosed Date [...] as of this encounter (statuses as of 10/05/2023) Resolved Problems Problem Noted Date Diagnosed Date Resolved Date Impacted cerumen 03/11/2023 Otitis media 03/11/2023 documented as of this encounter (statuses as of 10/05/2023) Immunizations Name Administration Dates Next Due SARS-COV-2 [...] 10/06/2023 12:00 PM EDT Imaging Vascular Lab, [facility] 2nd Floor, [place] 132 [facility] [place] [id number] 10/07/2023 1:15 PM EDT Office Visit Hematology/Oncology [facility] [place] [address] [place] [phone] Faustino Sharif MD [address] [place] [address] 11/05/2023 7:40 AM EDT Office Visit Family [facility] [address] [place] [address] Charlene York CRNP [address] [place] [address] Health Maintenance Due Date Last Done Comments [...] this encounter Medical Devices Implanted Type Area Help Desk Support Device Identifier Shelf Expiration Date Model / Serial / Lot Power Port 8fr Sngl Lumen Plas - [id number] Implanted:Qty : 1 on 07/08/2023 by Naun Ratliff MD at OR [facility] Right: Chest CR BARD : PERIPHERAL VASCULAR [id number] 10/23/2024 [id number] / / [id number] documented as of this encounter Procedures Procedure Name Priority Date/Time Associated Diagnosis Comments CHEMISTRY-OUTSIDE Routine 09/28/2023 documented in this encounter Results * (ABNORMAL) CHEMISTRY-OUTSIDE (09/28/2023) Not all results display below - see scan for full detail OUTSIDE LAB (SEE SCANNED REPORT) Comment:SCAN INCL: CBC, CMP CREATININE-OUTSID E LAB 0.93 0.55 - 1.02 MG/DL OUTSIDE LAB (SEE SCANNED REPORT) EGFR-OUTSIDE LAB 65 OUT SIDE LAB (SEE SCANNED REPORT) POTASSIUM-OUTSIDE LAB 3.4(A) 3.5 - 5.1 MMOL/L OUTSIDE LAB (SEE SCANNED REPORT) GLUCOSE-OUTSIDE LAB 116(A) 70 - 110 MG/DL OUTSIDE LAB (SEE SCANNED REPORT) HOURS FASTING OUTSID E LAB (SEE SCANNED REPORT) TRIGLYCERIDES-OUT SIDE LAB OUTSIDE LAB (SEE SCANNED REPORT) CHOLESTEROL-OUTSI DE LAB OUTSIDE LAB (SEE SCANNED REPORT) HDL-OUTSIDE LAB OUTS MARIA T LAB (SEE SCANNED REPORT) CHOL/HDL RATIO-OUTSIDE LAB OUTSIDE LA B (SEE SCANNED REPORT) LDL (CALCULATED)-OUTS MARIA T LAB OUTSIDE LAB (SEE SCANNED REPORT) LDL (DIRECT MEASURE)-OUTSIDE LAB OUTSIDE LAB (SEE SCANNED REPORT) HEMOGLOBIN, E6Q-VKPEDZB LAB OUTSIDE LAB (SEE SCANNED REPORT) PHOSPHORUS-OUTSID E LAB OUTSIDE LAB (SEE SCANNED REPORT) PTH-OUTSIDE LAB OUTS MARIA T LAB (SEE SCANNED REPORT) MICROALBUMIN RATIO-OUTSIDE LAB OUTSIDE LA B (SEE SCANNED REPORT) PROTEIN, UA-OUTSIDE LAB OUTSIDE LAB (SEE SCANNED REPORT) HGB 10.1(A) 12.0 - 16.0 GM/DL OUTSIDE LAB (SEE SCANNED REPORT) 09/28/2023 Jeffrey France MD LABORATORY OUTSIDE LAB (SEE SCANNED REPORT) documented in this encounter Care Teams Military Nurse Relationship Specialty Start Date End Date Charlene York CRNP [address] [place] [address] PCP - General Nurse Practitioner 03/11/23 documented as of this encounter
--- OUTSIDE RECORDS SUMMARY | 2023-10-23 01:35 | External Medical Summary | Summary of Care ---
Author Name Unknown Organization [facility] Address [address] [facility] [place] [address] Phone [phone] Care Team Providers Care Wool Shearing Supervisor Name Role Phone Charlene York Primary Care Provider Reason for Referral * Precert (Within 10 days (routine)) - Authorized Specialty Diagnoses / Procedures Referred By Contac t Referred To Contact Radiology Diagnoses Malignant neoplasm of upper-inner quadrant of right breast in female, estrogen receptor positive (HCC) Preoperative examination Procedures NM BREAST LYMPH GLAND TECH INJECTION Katheryn Sol MD [address] [place] [address] Referral ID Status Reason Start Date Expiration Date V isits Requested Visits Authorized [id number] Authorized 10/14/2023 999 999 Encounter Details Date Type Department Care Team (Late st Contact Info) Description 10/06/2023 Telephone General Surgery, [facility] [address] [place] [address] Katheryn Sol MD [address] [place] [address] Allergies No known active allergiesdocumented as of [...] mastectomies and bilateral sentinel node biopsies at [facility](4 hrs total); need Priscilla. I created the [...] 10/07/2023 1:15 PM EDT Office Visit Hematology/Oncology [facility] 200 [facility] [place], [place] [address] Faustino Sharif MD 200 [facility] [place] [address] 11/05/2023 7:40 AM EDT Office Visit Family Practice [facility] [address] [place] [address] Charlene York CRNP [address] [place] [address] Scheduled Orders Name Type Priority Associated Diagnoses [...] this encounter Medical Devices Implanted Type Area Human Resources Representative Device Identifier Shelf Expiration Date Model / Serial / Lot Power Port 8fr Sngl Lumen Plas - [id number] Implanted:Qty : 1 on 07/08/2023 by Naun Ratliff MD at OR [facility] Right: Chest CR BARD : PERIPHERAL VASCULAR [id number] 10/23/2024 [id number] / / [id number] documented as of this encounter Visit Diagnoses Diagnosis Malignant neoplasm of upper-inner quadrant of right breast in female, estrogen receptor positive (HCC)- Primary Preoperative cardiovascular examination Pre-operative cardiovascular examination Preoperative examination Preoperative examination, unspecified documented in this encounter Care Teams Wool Shearing Supervisor Relationship Specialty Start Date End Date Charlene York CRNP [address] [place] [address] PCP - General Nurse Practitioner 03/11/23 documented as of this encounter
--- OUTSIDE RECORDS SUMMARY | 2023-10-23 01:35 | External Medical Summary | Summary of Care ---
Author Name Unknown Organization [facility] Address [address] [facility] [place] [address] Phone [phone] Care Team Providers Care Domestic Technician Name Role Phone Charlene York Primary Care Provider Reason for Visit * Reason Comments Follow Up Update H/P right eli ast Ca. Encounter Details Date Type Department Care Team (Late st Contact Info) Description 10/13/2023 1:15 PM EDT Office Visit General Surgery, [facility] [place] [address] Sol Lockwood MD 132 [facility] [place] [address] Malignant neoplasm of upper-inner quadrant of right breast in female, estrogen receptor positive (HCC)*; Pre-op testing Allergies No known active allergiesdocumented as of this encounter (statuses as of 10/13/2023) Medications Medication Sig Dispensed Refills Start Date [...] this for 14 days. 28 Capsule 10/13/2023 4 Active documented as of this encounter (statuses as of 10/13/2023) Active Problems Problem Noted Date Diagnosed Date [...] as of this encounter (statuses as of 10/13/2023) Resolved Problems Problem Noted Date Diagnosed Date Resolved Date Impacted cerumen 03/11/2023 Otitis media 03/11/2023 documented as of this encounter (statuses as of 10/13/2023) Immunizations Name Administration Dates Next Due SARS-COV-2 [...] Sign Reading Time Taken Comments Blood Pressure 140/61 10/13/2023 12:57 PM EDT Pulse 97 10/13/2023 12:57 PM EDT Temperature - - Respiratory Rate - - Oxygen Saturation - - Inhaled Oxygen Concentration - - Weight 61.6 kg (135 lb 12.8 oz) 024 12:57 PM EDT Height 163.7 cm (5' 4.45") 10/13/2023 1 2:57 PM EDT Body Mass Index 22.99 10/13/2023 12:57 PM EDT documented in this encounter Progress Notes * Kristine Aguilar LPN - 10/13/2023 1:49 PM EDT Patient identified by name and date of . Chief Complaint Patient presents with Follow Up Update H/P right breast Ca. Patient scheduled at [facility] for mastectomy with sentinal lymph node biopsy with dr lockwood . Date of Test: 10/19/2023 Medications reviewed. EKG obtained todayu abnormal, notified anesthesia nurses Labs: not obtained, already in chart and done. Permit signed. Patient verbalizes understanding of pre- and post op instructions. Written instructions given for review at later date. Kristine Aguilar LPN 10/13/2023 * Sol Lockwood MD - 10/13/2023 12:54 PM EDT [facility] F/U BREAST CANCER CLINIC NOTE [...] with a container labeled with "Sue Rivas", "[id number]", "1950" and " right breast one o'clock [...] specimen is 0.9 cm. Breast, right, Block [id number]: A. Right breast, mass, core biopsy: Invasive [...] results to follow in an addendum Case/Block [id number] Adequacy Adequate cellular specimen Interpretation AMPLIFIED for [...] The exam was interpreted in conjunction with Klood software with kinetic and morphologic analysis and [...] breast ultrasound 04/15/2023. TECHNIQUE ANESTHESIA: 1% lidocaine STORAGE FACILITY RENTAL CLERK: Dr. Duong was present for and performed [...] by Dr. Duong in the presence of magnetic resonance technologist and it was confirmed that procedure [...] performed by Naun Ratliff MD at OR [facility] LAPAROSCOPY; CHOLECYSTECTOMY 12/01/2007 Dr Bergeron at [facility] LIGATE/CUT OVIDUCT(S) AT SURGERY MT ARTHROSCOPY KNEE DIAGNOSTIC W/WO SYNOVIAL BX SPX Right 2004 RIGHT SHOULDER rc REpair MT ARTHRP KNE CONDYLE&PLATU MEDIAL&LAT COMPARTMENTS Left 2019 [facility] ortho US GUIDED BREAST [...] cancer in the upper inner breast which [id number] mm on imaging with multiple satellite tumors [...] or time spent by another provider/QHP. Sol Lockwood M.D. 10/13/2023 4:27 PM documented in this encounter H&P Notes * Sol Lockwood MD - 10/13/2023 4:27 PM EDT [facility] F/U BREAST CANCER CLINIC NOTE [...] swelling. Originally she was referred by [facility] Brwon for evaluation and discussion of newly diagnosed [...] with a container labeled with "Sue Rivas", "[id number]", "1950" and " right breast one o'clock [...] specimen is 0.9 cm. Breast, right, Block [id number]: A. Right breast, mass, core biopsy: Invasive [...] results to follow in an addendum Case/Block [id number] Adequacy Adequate cellular specimen Interpretation AMPLIFIED for [...] The exam was interpreted in conjunction with Klood software with kinetic and morphologic analysis and [...] breast ultrasound 04/15/2023. TECHNIQUE ANESTHESIA: 1% lidocaine STORAGE FACILITY RENTAL CLERK: Dr. Duong was present for and performed [...] by Dr. Duong in the presence of magnetic resonance technologist and it was confirmed that procedure [...] performed by Naun Ratliff MD at OR [facility] LAPAROSCOPY; CHOLECYSTECTOMY 12/01/2007 Dr Bergeron at [facility] LIGATE/CUT OVIDUCT(S) AT SURGERY MT ARTHROSCOPY KNEE DIAGNOSTIC W/WO SYNOVIAL BX SPX Right 2004 RIGHT SHOULDER rc REpair MT ARTHRP KNE CONDYLE&PLATU MEDIAL&LAT COMPARTMENTS Left 2019 [facility] ortho US GUIDED BREAST [...] cancer in the upper inner breast which [id number] mm on imaging with multiple satellite tumors [...] or time spent by another provider/QHP. Sol Lockwood M.D. 10/13/2023 4:27 PM documented in this encounter Nursing Notes * Floresita Vela MED ASSIST - 10/13/2023 12:59 PM EDT Chief Complaint Patient presents with Follow Up Update H/P right breast Ca. Verified patient. documented in this encounter Plan of Treatment Upcoming Encounters Date Type Department Care Team (Latest Contact Info) Description 10/19/2023 7:40 AM EDT Hospital Encounter OR [facility], Operating Room, [facility] - 4th Floor [address] [place] [phone] Sol Lockwood MD 132 [facility] [place] [address] 10/19/2023 7:40 AM EDT - 10/19/2023 12:41 PM EDT Surgery OR [facility], Operating Room, [facility] - 4th Floor [address] [place] [address] Sol Lockwood MD [facility] [address] MASTECTOMY SIMPLE COMPLETE 10/19/2023 8:00 AM EDT Appointment Radiology, [address] [place], [place] [address] 10/21/2023 9:45 AM EDT Scheduled Telephone General Surgery, [facility] [place] [address] [facility], Nurse Gen Surg [facility] [address] 11/03/2023 9:00 AM EDT Office Visit General Surgery, [facility] 132 [facility] [place] [address] Sol Lockwood MD 132 [place] [address] 11/05/2023 7:40 AM EDT Office Visit Family Practice [facility] [place] [address] Charlene York CRNP 132 [facility] [address] 11/10/2023 11:15 AM EDT Office Visit Hematology/Oncolog y [facility] 200 [facility] [place], [place] [phone] Faustino Sharif MD 200 [facility] [place] [address] Scheduled Orders Name Type Priority Associated Diagnoses Orde r Schedule EKG EKG Routine Pre-op testing Expected: 10/13/2023 (Approximate), Expi res: 11/12/2024 Scheduled Procedures Name Priority Associated Diagnoses Date/Ti [...] this encounter Medical Devices Implanted Type Area Guidance Consultant Device Identifier Shelf Expiration Date Model / Serial / Lot Power Port 8fr Sngl Lumen Plas - [id number] Implanted:Qty : 1 on 07/08/2023 by Naun Ratliff MD at OR [facility] Right: Chest CR BARD : PERIPHERAL VASCULAR [id number] 10/23/2024 [id number] / / [id number] documented as of this encounter Visit Diagnoses Diagnosis Malignant neoplasm of upper-inner quadrant of right breast in female, estrogen receptor positive (HCC)- Primary Malignant neoplasm of upper-inner quadrant of right breast in female, estrogen receptor positive (HCC)- Primary Pre-op testing Preoperative examination, unspecified Malignant neoplasm of upper-inner quadrant of right breast in female, estrogen receptor positive (HCC) documented in this encounter Care Teams Domestic Technician Relationship Specialty Start Date End Date Charlene York CRNP [address] [place] [address] PCP - General Nurse Practitioner 03/11/23 documented as of this encounter
--- OUTSIDE RECORDS SUMMARY | 2023-10-23 01:35 | External Medical Summary | Summary of Care ---
Author Name Unknown Organization [facility] Address [address] [facility] [address] Phone [phone] Care Team Providers Care Water Proofer Name Role Phone Charlene York Primary Care Provider Reason for Referral * Precert (Within 10 days (routine)) - Authorized Specialty Diagnoses / Procedures Referred By Contac t Referred To Contact Radiology Diagnoses Malignant neoplasm of upper-inner quadrant of right breast in female, estrogen receptor positive (HCC) Preoperative examination Procedures NM BREAST LYMPH GLAND TECH INJECTION Katheryn Sol MD [address] [place] [address] Referral ID Status Reason Start Date Expiration Date V isits Requested Visits Authorized [id number] Authorized 10/14/2023 999 999 Encounter Details Date Type Department Care Team (Late st Contact Info) Description 10/06/2023 Telephone General Surgery, [facility] [address] [place] [address] Katheryn Sol MD [address] [place] [address] Allergies No known active allergiesdocumented as of [...] 10/07/2023 1:23 PM EDT Offering 10/19/23 at [facility]. Lmom to return my call * Telephone Encounter - Charlene York CRNP - 10/07/2023 12:13 PM EDT Noted Dea, MSN, [facility] * Addendum Note - Katheryn Sol MD [...] mastectomies and bilateral sentinel node biopsies at [facility](4 hrs total); need Priscilla. I created [...] Care Team (Late st Contact Info) Description 10/19/2023 Hospital Encounter OR [facility], Operating Room, [facility] - 4th Floor [address] [place] [address] [facility]atheryn Sol MD [facility] [place] [address] 10/19/2023 8:00 AM EDT Appointment Radiology, [facility] [address] [place] [address] 11/05/2023 7:40 AM EDT Office Visit Family Practice [facility] [place] [address] Charlene York CRNP [facility] [place] [address] Scheduled Orders Name Type Priority Associated Diagnoses [...] this encounter Medical Devices Implanted Type Area [employer] Device Identifier Shelf Expiration Date Model / Serial / Lot Power Port 8fr Sngl Lumen Plas - [id number] Implanted:Qty : 1 on 07/08/2023 by Naun Ratliff MD at OR [facility] Right: Chest CR BARD : PERIPHERAL VASCULAR [id number] 10/23/2024 [id number] / / [id number] documented as of this encounter Visit Diagnoses Diagnosis Malignant neoplasm of upper-inner quadrant of right breast in female, estrogen receptor positive (HCC)- Primary Preoperative cardiovascular examination Pre-operative cardiovascular examination Preoperative examination Preoperative examination, unspecified Malignant neoplasm of upper-inner quadrant of right breast in female, estrogen receptor positive (HCC)- Primary documented in this encounter Care Teams Water Proofer Relationship Specialty Start Date End Date Charlene York CRNP [address] [place] [address] PCP - General Nurse Practitioner 03/11/23 documented as of this encounter
--- OUTSIDE RECORDS SUMMARY | 2023-10-23 01:35 | External Medical Summary | Summary of Care ---
Author Name Unknown Organization [facility] Address [address] [facility] [place] [address] Phone [phone] Care Team Providers Care Quality Control Analyst Name Role Phone Charlene York Primary Care Provider Encounter Details Date Type Department Care Team (Late st Contact Info) Description 10/06/2023 Telephone Family Practice [facility] [address] [place] [address] Jeffrey France MD [address] [place] [address] Allergies No known active allergiesdocumented as of [...] PM EDT Office Visit Hematology/Oncology [facility] [place] [address] [place] [address] Faustino Sharif MD [address] [place] [address] [address] 11/05/2023 7:40 AM EDT Office Visit Family Practice [facility] [address] [place] [address] Charlene York CRNP [address] [place] [address] Health Maintenance Due Date Last Done Comments [...] this encounter Medical Devices Implanted Type Area Hydrometer Calibrator Device Identifier Shelf Expiration Date Model / Serial / Lot Power Port 8fr Sngl Lumen Plas - [id number] Implanted:Qty : 1 on 07/08/2023 by Naun Ratliff MD at OR [facility] Right: Chest CR BARD : PERIPHERAL VASCULAR [id number] 10/23/2024 [id number] / / [id number] documented as of this encounter Care Teams Quality Control Analyst Relationship Specialty Start Date End Date Charlene York CRNP [address] [place] [address] PCP - General Nurse Practitioner 03/11/23 documented as of this encounter
--- OUTSIDE RECORDS SUMMARY | 2023-10-23 01:35 | External Medical Summary | Summary of Care ---
Author Name Unknown Organization [facility] Address [address] [facility] [place] [address] Phone [phone] Care Team Providers Care Laborer Pipeline Name Role Phone Charlene York Primary Care Provider Encounter Details Date Type Department Care Team (Late st Contact Info) Description 10/06/2023 Telephone General Surgery, [facility] [place] [address] Sol Sol MD 132 [facility] [place] [address] Allergies No known active allergiesdocumented as of [...] 10/06/2023 11:12 AM EDT Received message from [facility] that pt is no longer interested in reconstruction. Tried to call. Email sent. documented in this encounter Plan of Treatment Upcoming Encounters Date Type Department Care Team (Late st Contact Info) Description 10/07/2023 1:15 PM EDT Office Visit Hematology/Oncology [facility] 200 [facility] [place] [address] Faustino Sharif MD 200 [facility] [place] [address] 11/05/2023 7:40 AM EDT Office Visit Family Practice [facility] [address] [place] [address] Charlene York CRNP [address] [place] [address] Health Maintenance Due Date Last Done Comments [...] encounter Medical Devices Implanted Type Area Hand I Thermal Cutter Device Identifier Shelf Expiration Date Model / Serial / Lot Power Port 8fr Sngl Lumen Plas - [id number] Implanted:Qty : 1 on 07/08/2023 by Naun Ratliff MD at [facility] Right: Chest CR BARD : PERIPHERAL VASCULAR [id number] 10/23/2024 [id number] / / [id number] documented as of this encounter Care Teams Laborer Pipeline Relationship Specialty Start Date End Date Charlene York CRNP [address] [place] [address] PCP - General Nurse Practitioner 03/11/23 documented as of this encounter
[2023-10-23 07:04] LABS: Basophils # (auto) 0.03 K/uL (0.00-0.20); Basophils % (auto) 0.4 %; Eosinophils # (auto) 0.17 K/uL (0.00-0.50); Eosinophils % (auto) 2.4 %; Hematocrit (blood only) 27.7 % (37.0-47.0); Hemoglobin 8.8 g/dl (12.0-16.0); Immature Granulocytes # (auto) 0.03 K/uL (0.01-0.20); Immature Granulocytes % (auto) 0.4 %; Lymphocytes # (auto) 1.26 K/uL (1.20-3.40); Lymphocytes % (auto) 17.5 %; Mean Corpuscular Hemoglobin 28.9 pg (25.0-34.0); Mean Corpuscular Hgb Conc 31.8 g/dL (32.0-36.0); Mean Corpuscular Volume 90.8 fL (80.0-100.0); Mean Platelet Volume 9.3 fL (9.4-12.4); Monocytes # (auto) 0.36 K/uL (0.11-0.59); Neutrophils # (auto) 5.35 K/uL (1.40-6.50); Neutrophils % (auto) 74.3 %; Platelet Count 257 K/uL (130-400); RDW Standard Deviation 40.3 fL (36.4-46.3); Red Blood Count 3.05 M/uL (4.20-5.40)
--- NOTE | 2023-10-23 07:22 | XRay Report ---
XR chest 1V portable HISTORY: Atypical chest pain. COMPARISON: Chest 08/15/2023. FINDINGS: No pneumothorax. No pleural effusions. Left basilar linear densities favor subsegmental ate lectasis. Otherwise, lungs are clear. The heart is top normal in size. No evidence for pulmonary ayaz a. Bilateral chest wall surgical drains are noted. No acute fractures. Slightly rotated study. IMPRESSION: No acute process. ACT 112: Negative or not required by law. Electronically signed by: Addi Argueta M.D. 10/23/2023 7:21 AM
[2023-10-23 07:37] LABS: BUN Creatinine Ratio 22.2 (10-20); Calcium 8.4 mg/dl (8.6-10.3); Creatinine Clr Calc Pharmacy 63.6 ml/min; Est GFR (Non-African American) 83.7 ml/min
[2023-10-23] MEDS ORDERED: ONDANSETRON INJ 2 MG/ML 2 ML VIAL IV PRN (08:52)
--- NOTE | 2023-10-23 09:28 | Surgery Progress Note ---
<Statement entered by Db Thao MD - 10/23/23 15:47> seen and agree. Hold eliquis Date of Service October 23, 2023 Assessment & Plan (1) S/P bilateral mastectomy: (2) Anemia: (3) Hematoma: Plan POD # 4 s/p bilateral mastectomy at [facility]. Developed swelling and pain of right chest wall yesterday afternoon. Was having bleeding around drain site. ARIELLE drain with 15-20 cc output, not bright red blood. exam consistent with postoperative right chest wall hematoma hemodynamically stable Hgb 10.6 --> 8.8 this am (baseline around 10) moderate pain with activity Plan: No signs of active bleeding, although hematoma large it is not rapidly expanding and drain output looks like old dark blood. Will do conservative measures with heat application, compression with otilio wrap, and stripping drain more frequently Monitor vitals Holding Eliquis Okay for diet Activity as tolerated pain management repeat H&H Discussed with Dr. Sol and Dr. thao who agrees with above. Admission and Anticipated Discharge Date Admission Date: October 22, 2023 Subjective states she is feeling okay pain is moderate with movement 8/10 no n,v swelling of right chest wall seems stable compared to last night no chest pain, shortness of breath, dizziness, lightheadedness Physical Exam Constitutional: WD/WN, vitals as above cooperative and comfortable; no acute distress and not ill appearing Neck: normal visual inspection and trachea midline Respiratory: normal respiratory effort; no respiratory distress, no labored breathing and no retractions Cardiovascular: Rate/Rhythm: regular rate and regular rhythm Chest (Breasts): Additional Comments: Bilateral mastecotmy incisions are intact with necrosis, steri strips intact. Right chest wall with large hematoma (16 x 12 cm) of the central to inferior and lateral chest wall with ecchymosis of inferior chest. Induration and tender to palpation. No signs of ischemia or infection. Right arielle drain with 20 cc of serosanguineous and dark blood, no bright red blood, no active bleeding around drain site. No swelling of the left chest wall. Left arielle drain with serosanguineous drainage. Skin: + rash (there is a macular papular rash of the bilateral chest, neck and upper abd) Psychiatric: A+Ox3, euthymic affect Results & Data Vital Signs (Past 12 Hours) Vital Signs Temp Pulse Pulse Resp BP BP Pulse Ox 10/23/23 07:45 120/65 10/23/23 05:00 73 17 119/59 L 97 10/23/23 02:37 36.4 C L 74 18 133/69 96 10/23/23 02:34 36.8 C 76 16 107/69 94 10/23/23 01:00 86 18 108/73 97 10/22/23 23:30 83 18 132/74 94 10/22/23 23:02 88 18 157/92 H 96 10/22/23 22:04 36.4 C L 99 H 16 140/80 99 O2 Del Method 10/23/23 07:45 10/23/23 05:00 Room Air 10/23/23 02:37 Room Air 10/23/23 02:34 Room Air 10/23/23 01:00 Room Air 10/22/23 23:30 Room Air 10/22/23 23:02 Room Air 10/22/23 22:04 Room Air Laboratory Results 10/23/23 10/22/23 10/22/23 Range/Units 06:27 22:56 22:39 WBC 7.20 9.12 (4.8-10.8) K/ul RBC 3.05 L 3.64 L (4.20-5.40) M/uL Hgb 8.8 L 10.6 L (12.0-16.0) g/dl Hct 27.7 L 33.3 L (37.0-47.0) % MCV 90.8 91.5 (80.0-100.0) fL MCH 28.9 29.1 (25.0-34.0) pg MCHC 31.8 L 31.8 L (32.0-36.0) g/dL RDW Std Deviation 40.3 40.8 (36.4-46.3) fL RDW Coeff of Vitaly 12.0 12.0 (11.5-14.5) % Plt Count 257 301 (130-400) K/uL MPV 9.3 L 9.1 L (9.4-12.4) fL Immature Gran % (Auto) 0.4 % Neut % (Auto) 74.3 % Lymph % (Auto) 17.5 % [place] % (Auto) 5.0 % Eos % (Auto) 2.4 % Baso % (Auto) 0.4 % Neut # (Auto) 5.35 (1.40-6.50) K/uL Lymph # (Auto) 1.26 (1.20-3.40) K/uL [place] # (Auto) 0.36 (0.11-0.59) K/uL Eos # (Auto) 0.17 (0.00-0.50) K/uL Baso # (Auto) 0.03 (0.00-0.20) K/uL Immature Gran # (Auto) 0.03 (0.01-0.20) K/uL PT 10.3 (9.0-12.0) Seconds INR 0.9 (0.9-1.1) APTT 29 (21-31) Seconds PTT Ratio 1.1 Sodium 138 139 (136-145) mmol/L Potassium 4.0 3.6 (3.5-5.1) mmol/L Chloride 105 102 (98-107) mmol/L Carbon Dioxide 25 29 (21-32) mmol/L Anion Gap 8 8 (3-11) BUN 16 17 (6-23) mg/dl Creatinine 0.72 0.92 (0.6-1.2) mg/dl Est Cr Clr Drug Dosing 63.6 49.7 ml/min Est GFR ( Amer) 97.0 72.1 ml/min Est GFR (Non-Af Amer) 83.7 62.2 ml/min BUN/Creatinine Ratio 22.2 H 18.5 (10-20) Glucose 111 H 109 H (70-99(Fasting)) mg/dl Calcium 8.4 L 9.6 (8.6-10.3) mg/dl Blood Type O Positive Antibody Screen NEGATIVE (2) Anemia Anemia type: unspecified type Qualified Code(s): D64.9 - Anemia, unspecified
[2023-10-23] MEDS: DOXYCYCLINE HYCLATE 100 MG CAP PO SCH (10:08)
[2023-10-23] MEDS: oxyCODONE/ACETAMINOPHEN 5mg/325mg TAB PO PRN (10:35)
[2023-10-23] MEDS: LORATADINE 10 MG TAB PO SCH (11:12)
[2023-10-23] MEDS: diphenhydrAMINE Capsule 25 MG CAP PO PRN (20:29)
[2023-10-23 20:59] VITALS: TEMP 98.1
[2023-10-24 07:19] VITALS: BP 115/66; PULSE 83; RESP 16; O2SAT 94
[2023-10-24 07:30] LABS: Hemoglobin 9.1 g/dl (12.0-16.0)
[2023-10-24] MEDS: oxyCODONE/ACETAMINOPHEN 5mg/325mg TAB PO PRN (08:46)
--- NOTE | 2023-10-24 09:31 | Discharge Summary ---
Date of Service October 24, 2023 Admission HPI Per Admitting Provider This is a 73-year-old female with an underlying history of breast cancer. She underwent bilateral mastectomies by Dr. Sol Sol of [facility] surgery on 10/19/2023 at [facility] in [place], [place]. Patient notes that her surgery was done on outpatient basis. Patient notes that she takes Eliquis secondary to history of a blood clot at a previous bleed placed a port which resulted in neck swelling. She notes that her Eliquis was resumed the day following her surgery. Patient called the answering service earlier this evening as she noted some increased swelling at her right mastectomy site earlier today and she noted that it got worse throughout the day. She specifically denies any fevers, shakes, or chills. She says she is eating a normal diet. She denies any lightheadedness or dizziness. She is not short of breath. Patient does have WOLF drains in place. The left WOLF drain has minimal drainage and is straw-colored. She does note that the WOLF output over the past 24 hours in the right mastectomy site has been mostly dark blood. She notes that between approximately 8:00 and 3:00 PM today it only drained 10 cc but she did note several blood clots in the tubing. She did attempt to strip the tubing and this did not help relieve any of the swelling. She does note that as the swelling of her right breast seem to increase and became somewhat more painful. She therefore presented to the emergency department. Since arrival to the emergency department the patient has had labs drawn which are pending at the time of this dictation. At the time of my interview the patient was not in any distress but she was noting some pain at her surgical incisions and some pain at the area of the right breast. Principal Diagnosis post op hematoma Discharge Data Allergies Allergy/AdvReac Type Severity Reaction Status Date / Time No Known Allergies Allergy Verified 10/22/23 23:13 Consultations 10/22/23 22:50 ED Decision to Admit Stat Hospital Course (1) Hematoma: Patient was admitted with pain and post op hematoma after B mastectomies. Eliquis stopped. Hematoma stabilized with compression. H/H stable. Drains working well. Total Time Total Time Spent Total Time Spent (In Minutes): 15 Discharge Plan Discharge Items Patient Disposition: Home - Self-Care Reason For Visit: BREAST HEMATOMA Discharge Diagnosis: Right chest wall hematoma s/p mastectomy Condition on Discharge: Fair Activity: Per Instructions section Activity Comment: no strenuos activity Lifting: No more than 25 pounds Non-emergency contact: Primary Care Provider and Surgeon Call non-emergency contact if: you have any medication questions, your pain is not controlled, your pain is concerning for you, you have a fever, your temperature is above 101, your wound has increased redness, your wound has increased drainage and your wound pain has increased Follow-up/Referrals: Sol Sol MD [Physician] - 10/29/23 9:30 am Charlene York CRNP [Primary Care Provider] - Diet: Regular Addtl Attending Provider Instructions: Surgical discharge instructions: - Follow initial discharge instructions given to you day of your surgery regarding restrictions and exercises - For the drains, continue to monitor output and color and keep a record of this. This is important to keep record of the output amount and color given the postoperative hematoma (bleeding) - Wear otilio wrap or surgical bra for compression - Apply heat to the right chest wall for 20 minutes and then reapply compression. Heat with compression will help the body reabsorb the blood. - Continue to strip the drains frequently to allow drainage - Monitor for any fever, chills, increasing pain, increasing swelling and to call office or call answering service if after hours. If there are signs of significant swelling of right chest wall in short amount of time and bright red blood in drains to go to emergency department. - Avoid any aspirin, Aleve, Ibuprofen - DO NOT APPLY THE NITRO PASTE to the incisions or the drain sites. You are schedule to see Dr. Sol 10/29/23 at 9:30 Pending Studies at Discharge: No Stand-Alone Forms: My [facility], Smoking Cessation Medications and DC Order Prescriptions: Continued doxycycline hyclate 100 mg capsule 100 mg PO BID Rx Instructions: STARTED 10/13/23 FOR 14 DAYS Eliquis 5 mg tablet 5 mg PO BID folic acid 1 mg Tablet 1 mg PO DAILY calcium carbonate [Calcium 600] 600 mg calcium (1,500 mg) Tablet 600 mg PO BID Discharge Orders: Discharge Order (Routine); Ordered 10/24/23 Ordered By: Db Cisse Admission Data Admit Date/Time: 10/22/23 23:11 Attending Provider: Javid Jimenez Admit Provider: Bashir Underwood Primary Care Provider: Charlene York Other Providers: Javid Jimenez
== END 2023-10-24 10:34 | disposition home or self-care (01) ==
LOC: ED 21:59 → EDINP 21:59 → 3W 10-23 08:23